=== PATIENT | male | born 1955 | race Caucasian/White ===

== ENCOUNTER 2022-12-29 20:57 | Emergency (ER) | payer MEDICARE, SELFPAY ==
[2022-12-29] VITALS (10 sets, daily range): BP systolic 113–155; BP diastolic 66–89; PULSE 58–72; RESP 10–23; TEMP 36.4; O2SAT 83–98; BMI 47.0
--- NOTE | 2022-12-29 21:03 | ECG_ITS ---
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
[2022-12-29 21:15] LABS: Glucometer 220 mg/dL (74-106)
--- NOTE | 2022-12-29 21:22 | XR_ITS ---
The [address] [address] Patient Name: HUANG QUINTANA MRN: [id number] date: 1955 Sex: M Assigned Patient Location: ER Current Patient Location: ER Accession/Order Number: [id number] Exam Date: 12/29/2022 21:30 Report Date: 12/29/2022 22:56 At the request of: SINDHU MUKHERJEE Procedure: XR chest 1V EXAM: XR CHEST 1V HISTORY: Dizziness. COMPARISON: None. TECHNIQUE: One view was performed. FINDINGS: Cardiac silhouette is near the upper limits of normal in size. The aorta is somewhat tortuous. There is no definite focal consolidation, pleural effusion or pneumothorax. Bones and soft tissues appear unremarkable. IMPRESSION: 1. No acute cardiopulmonary process. 2. Borderline cardiomegaly. Electronically authenticated by: CHRISTIE QURESHI Date: 12/29/2022 22:56
--- NOTE | 2022-12-29 21:23 | CT_ITS ---
The [address] [address] Patient Name: HUANG QUINTANA MRN: [id number] date: 1955 Sex: M Assigned Patient Location: ER Current Patient Location: ER Accession/Order Number: [id number] Exam Date: 12/29/2022 21:30 Report Date: 12/29/2022 22:23 At the request of: SINDHU MUKHERJEE Procedure: CT head/brain wo con INDICATION: 67 years old; Male. Dizziness. TECHNIQUE: CT Head (ax/cor/sag reformats). Ionizing radiation dose reduced via iterative reconstruction/FBP blend and body size kV/mA adjustment. Comparison: None FINDINGS: POSTOPERATIVE CHANGES: None. BRAIN PARENCHYMA: No focal lesions. No mass effect. No midline shift or herniation. No intraparenchymal or extra-axial hemorrhage. Normal barnhart/white differentiation. 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 Enlargement of the ventricles and extra ventricular spaces consistent with underlying atrophy is also noted. SINUSES/MASTOIDS: Thickening and cyst or polyp formation in the left maxillary sinus. Nasal septal deviation to the left with spur formation. Maureen bullosa bilaterally. Mastoid air cells are clear. MSK: No displaced or depressed calvarial fracture is noted. OTHER: No hyperdense intraluminal thrombus is seen. Vascular calcification is noted. IMPRESSION: 1. No acute intracranial abnormality. No hemorrhage or mass effect. 2. Agenesis of the corpus callosum. 3. Atrophy. 4. Vascular calcification. Electronically authenticated by: ESTELLE BLUM Date: 12/29/2022 22:23
--- NOTE | 2022-12-29 21:24 | PC.NURSE ---
patient states prior to arrival he was sitting outside in his garage when he began to feel dizzy and nauseous. states he had been sitting outside for about an hour and then when he tried to get up he felt too weak and like he was going to pass out so he called his nephew for help. nephew states when he got there the pt said he was dizzy and the pt felt cold . patient denies any chest pain at this time. patient states he just feels lightheaded and nauseous.
[2022-12-29 21:28] LABS: Basophils Percent Auto 0.4 % (0.2-2.0); Eosinophils Absolute Auto 0.1 10^3/uL (0.0-0.7); Eosinophils Percent Auto 1.1 % (0.9-7.0); Hematocrit 43.1 % (42.0-54.0); Hemoglobin 14.4 g/dL (14.0-18.0); Immature Granulocytes Abs Auto 0.06 10^3/uL (0.00-0.03); Immature Granulocytes Pct Auto 0.6 % (0.0-0.5); Lymphocytes Absolute Auto 1.9 10^3/uL (1.2-3.8); Lymphocytes Percent Auto 19.2 % (20.5-60.0); Mean Corpuscular HGB Conc 33.4 g/dL (29.9-35.2); Mean Corpuscular Hemoglobin 30.7 pg (25.9-34.0); Mean Corpuscular Volume 91.9 fL (80.0-94.0); Mean Platelet Volume 9.6 fL (9.5-13.5); Monocytes Absolute Auto 0.6 10^3/uL (0.3-0.8); Monocytes Percent Auto 6.3 % (1.7-12.0); Neutrophils Absolute Auto 7.1 10^3/uL (1.4-6.5); Neutrophils Percent Auto 72.4 % (43.0-75.0); Platelet Count 300 10^3/uL (150-450); Red Blood Count 4.69 10^6/uL (4.70-6.10); Red Cell Distribution Width 12.7 % (11.0-15.0); White Blood Count 9.8 10^3/uL (4.0-11.0)
[2022-12-29] MEDS: ONDANSETRON PF 4 MG/2 ML VIAL IV ×2 (21:35→22:34)
[2022-12-29] MEDS: 0.9 % SODIUM CHLORIDE 1,000 ML 999 ML IV (21:35)
[2022-12-29 21:42] LABS: Anion Gap 11.3; Calcium 9.1 mg/dL (8.5-10.1); Carbon Dioxide 25.8 mmol/L (21.0-32.0); Chloride 100 mmol/L (98-107); Estimated GFR (African America >60 (>=60); Estimated GFR (Non-African Ame >60 (>=60); Glucose 210 mg/dL (74-106); Potassium 4.1 mmol/L (3.5-5.1); Sodium 133 mmol/L (136-145)
[2022-12-29 21:43] LABS: Troponin I High Sensitivity <4.0 pg/mL (4.0-76.1)
--- NOTE | 2022-12-29 21:53 | ED_ITS ---
HPI - Dizziness General Chief Complaint: Dizziness Stated Complaint: chest pain Time Seen by Provider: 12/29/22 21:11 Source: patient Mode of arrival: Wheelchair History of Present Illness HPI Narrative: patient suddenly became dizzy and nauseous and vomited. He was brought in by family for evaluation. No preceding illness or injury. He denied any associated headache, visual changes, ringing in the ears, ear pain, sore throat , nasal congestion. He denied any associated palpitations, chest pain or shortness fo breath. He described the sensation as almost like I ws going to pass out . he has atrial fibrillation and takes 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. PMHx also includes DM and CAD. he is accompanied by his sister and his nephew Related Data Home Medications Medication Instructions Recorded Confirmed albuterol sulfate 90 mcg/actuation inhalation 12/29/22 aerosol inhaler (Ventolin HFA) apixaban 5 mg tablet (Eliquis) mg 12/29/22 metformin 500 mg tablet,extended mg PO 12/29/22 release 24 hr metoprolol tartrate 100 mg tablet mg 12/29/22 tolterodine 4 mg capsule,extended mg PO 12/29/22 release 24 hr torsemide 20 mg tablet mg 12/29/22 Previous Rx's Medication Instructions Recorded ondansetron 4 mg disintegrating 4 mg PO .q6hr PRN nausea and 12/30/22 tablet vomiting #20 tabs Allergies Allergy/AdvReac Type Severity Reaction Status Date / Time No Known Drug Allergies Allergy Verified 12/29/22 21:06 Exam Narrative Exam Narrative: Nurses notes and vital signs reviewed and patient is not hypoxic. afebrile General: Well-appearing and in no apparent distress. Skin: Warm, dry, no pallor noted. No rash. Head: Normocephalic, atraumatic. Neck: Supple, non-tender. Eye: Pupils are equal, round and EOMI. No scleral icterus. Ears, Nose, Mouth, and Throat: TM are clear, no nasal mucosal hypertrophy. Oral mucosa is moist, no posterior oropharynx erythema, uvula is mid-line Cardiovascular: Regular Rate and Rhythm without murmur, gallop or rub. Respiratory: No accessory muscle use or respiratory distress. Lungs are clear to auscultation, no wheezing, rales or rhonchi Chest Wall: no tenderness Back: No midline thoracic or lumbar vertebral tenderness. No CVA tenderness Musculoskeletal: normal ROM, no calf or popliteal tenderness, no lower extremity edema/swelling GI: Abdomen is soft, non-distended. Normal bowel sounds. No masses appreciated. No tenderness to palpation. No rebound, guarding, or rigidity noted. Neurological: A&O x4. No cranial nerve dysfunction observed. No truncal ataxia. Moves all extremities. Sensation intact. Psychiatric: Cooperative and interactive. Normal mood and affect. Constitutional Vital Signs, click to edit/add: Last Vital Signs Temp 97.5 F L 12/29/22 21:02 Pulse 67 12/29/22 23:01 Resp 14 12/29/22 23:01 BP 135/77 H 12/29/22 23:32 Pulse Ox 97 12/29/22 23:01 O2 Del Method Room Air 12/29/22 21:02 Course Vital Signs Vital signs: Vital Signs Temperature 97.5 F L 12/29/22 21:02 Pulse Rate 65 12/29/22 21:02 Respiratory Rate 16 12/29/22 21:02 Blood Pressure 155/89 H 12/29/22 21:02 Pulse Oximetry 95 12/29/22 21:02 Oxygen Delivery Method Room Air 12/29/22 21:02 Temperature 97.5 F L 12/29/22 21:02 Pulse Rate 67 12/29/22 23:01 Respiratory Rate 14 12/29/22 23:01 Blood Pressure 135/77 H 12/29/22 23:32 Pulse Oximetry 97 12/29/22 23:01 Oxygen Delivery Method Room Air 12/29/22 21:02 MDM - Dizziness MDM Narrative Medical decision making narrative: Patient was placed on air sampling and monitoring and EKG obtained. Blood drawn and sent for evaluation. he was sent for CT scanning of the brain and chest x-ray was obtained. Patient received normal saline IV fluid bolus and IV Zofran. Orthostatic vitals were negative and the patient was able to stand at the bedside unassisted. Lab values are fairly unremarkable. normal CBC. Sodium slightly decreased at 133. Remainder of electrolytes, kidney function and troponin are normal. glucose elevated above two hundred Head CT and CXR without acute abnormalities. Reports detailed above. Patient's dizziness resolved after NS IVF bolus and IV Zofran. He still had nausea so he was given another 4mg dose of Zofran IV and Phenergan 25mg IV. He was drowsy after receiving the IV Phenergan but his nausea had resolved. Results discussed with the patient and his sister, who is apparently his medical ower of disability attorney. She wanted him admitted but the nephew agreed to take the patient home and stay with him tonight. The patient was able to converse and answer questions at discharge. Nausea had resolved. He was able to stand, pivot and walk without assistance. Lab Data Attestation: I reviewed the patient's lab results. Labs: Lab Results 12/29/22 12/29/22 Range/Units 21:05 21:14 WBC 9.8 (4.0-11.0) 10^3/uL RBC 4.69 L (4.70-6.10) 10^6/uL Hgb 14.4 (14.0-18.0) g/dL Hct 43.1 (42.0-54.0) % MCV 91.9 (80.0-94.0) fL MCH 30.7 (25.9-34.0) pg MCHC 33.4 (29.9-35.2) g/dL RDW 12.7 (11.0-15.0) % Plt Count 300 (150-450) 10^3/uL MPV 9.6 (9.5-13.5) fL Neut % (Auto) 72.4 (43.0-75.0) % Lymph % (Auto) 19.2 L (20.5-60.0) % [place] % (Auto) 6.3 (1.7-12.0) % Eos % (Auto) 1.1 (0.9-7.0) % Baso % (Auto) 0.4 (0.2-2.0) % Neut # (Auto) 7.1 H (1.4-6.5) 10^3/uL Lymph # (Auto) 1.9 (1.2-3.8) 10^3/uL [place] # (Auto) 0.6 (0.3-0.8) 10^3/uL Eos # (Auto) 0.1 (0.0-0.7) 10^3/uL Baso # (Auto) 0.0 (0.0-0.1) 10^3/uL Abs Immat Gran (auto) 0.06 H (0.00-0.03) 10^3/uL Imm/Tot Granulo (auto) 0.6 H (0.0-0.5) % Sodium 133 L (136-145) mmol/L Potassium 4.1 (3.5-5.1) mmol/L Chloride 100 (98-107) mmol/L Carbon Dioxide 25.8 (21.0-32.0) mmol/L Anion Gap 11.3 BUN 9.0 (7.0-18.0) mg/dL Creatinine 1.13 (0.70-1.30) mg/dL Est GFR ( Amer) >60 (>=60) Est GFR (Non-Af Amer) >60 (>=60) BUN/Creatinine Ratio 8.0 Glucose 210 H (74-106) mg/dL Calcium 9.1 (8.5-10.1) mg/dL Troponin I High Sens <4.0 L (4.0-76.1) pg/mL POC Glucose 220 H (74-106) mg/dL Imaging Data CT scan - head: Radiologist's impression: Patient Name: HUANG QUINTANA MRN: [id number] date: 1955 Sex: M Assigned Patient Location: ER Current Patient Location: ER Accession/Order Number: [id number] Exam Date: 12/29/2022 21:30 Report Date: 12/29/2022 22:23 At the request of: SINDHU MUKHERJEE Procedure: CT head/brain wo con INDICATION: 67 years old; Male. Dizziness. TECHNIQUE: CT Head (ax/cor/sag reformats). Ionizing radiation dose reduced via iterative reconstruction/FBP blend and body size kV/mA adjustment. Comparison: None FINDINGS: POSTOPERATIVE CHANGES: None. BRAIN PARENCHYMA: No focal lesions. No mass effect. No midline shift or herniation. No intraparenchymal or extra-axial hemorrhage. Normal barnhart/white differentiation. 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 Enlargement of the ventricles and extra ventricular spaces consistent with underlying atrophy is also noted. SINUSES/MASTOIDS: Thickening and cyst or polyp formation in the left maxillary sinus. Nasal septal deviation to the left with spur formation. Maureen bullosa bilaterally. Mastoid air cells are clear. MSK: No displaced or depressed calvarial fracture is noted. OTHER: No hyperdense intraluminal thrombus is seen. Vascular calcification is noted. IMPRESSION: 1. No acute intracranial abnormality. No hemorrhage or mass effect. 2. Agenesis of the corpus callosum. 3. Atrophy. 4. Vascular calcification. Electronically authenticated by: ESTELLE BLUM Date: 12/29/2022 22:23 Chest x-ray: Radiologist's impression: Patient: HUANG QUINTANA MR#: [id number] : 1955 Acct:[id number] Age/Sex: 67 / M ADM Date: 12/29/22 Loc: ER Attending Dr: Ordering Physician: Sindhu Mukherjee D.O. Date of Service: 12/29/22 Procedure(s): XR chest 1V Accession Number(s): [id number] cc: ~ ?? ? [facility] ?? ? [address] [place] [address] ?? ? [place] [address] ? Patient Name: HUANG QUINTANA ? MRN: [id number]? ? date: 1955? ? Sex: M Assigned Patient Location: ER Current Patient Location: ER Accession/Order Number: [id number] Exam Date: 12/29/2022? 21:30? ? Report Date: 12/29/2022? 22:22 ? At the request of: SINDHU? LONNY? ? Procedure:? XR chest 1V ? Initial impression only. ? IMPRESSION: ? 1. No acute cardiopulmonary process. 2. Borderline cardiomegaly. ? ? Electronically authenticated by: TARIQ QURESHI ? Date: 12/29/2022? 22:22 ECG Data Interpretation: EKG interpretation: Emergency Department physician interpretation. rate controlled atrial fibrillation at 69bpm. incomplete right bundle-branch block. Long QTC interval. no ST segment elevation or depression. Discharge Plan Discharge Chief Complaint: Dizziness Clinical Impression: Dizziness Patient Disposition: Home, Self-Care Time of Disposition Decision: 23:09 Prescriptions / Home Meds: New ondansetron 4 mg tablet,disintegrating 4 mg PO .q6hr PRN (Reason: nausea and vomiting) Qty: 20 0RF No Action torsemide 20 mg tablet metoprolol tartrate 100 mg tablet tolterodine 4 mg capsule,extended release 24hr PO albuterol sulfate [Ventolin HFA] 90 mcg/actuation HFA aerosol inhaler INHALATION metformin 500 mg tablet extended release 24 hr PO Eliquis 5 mg tablet Instructions: Dizziness (ED) Stand Alone Forms: Portal Instructions Referrals: Kaleb Gonzales [Primary Care Provider] - 1 week Discharge Date/Time: 12/29/22 23:53
[2022-12-29] MEDS: PROMETHAZINE HCL 25 MG/ML VIAL IV (22:34)
== END 2022-12-29 23:53 | disposition home or self-care (01) ==
PROVIDERS: Emergency Provider Emergency Medicine; PCP Physician Assistant
DX: R42 Dizziness and giddiness (principal); I48.91 Unspecified atrial fibrillation; E11.9 Type 2 diabetes mellitus without complications; I25.10 Atherosclerotic heart disease of native coronary artery without angina pectoris; Z79.01 Long term (current) use of 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s; Z79.899 Other long term (current) drug therapy; Z79.84 Long term (current) use of oral hypoglycemic drugs
CPT/HCPCS: 36415; 36416; 70450; 71045; 80048; 82948; 84484; 85025; 93005; 96361; 96374; 96375; 96376; 99285

== ENCOUNTER 2024-01-12 12:48 | Emergency (ER) | payer MEDICARE, SELFPAY ==
[2024-01-12] VITALS (34 sets, daily range): BP systolic 113–144; BP diastolic 60–83; PULSE 58–75; TEMP 36.8; O2SAT 95–99; BMI 48.3
--- NOTE | 2024-01-12 12:57 | ECG_ITS ---
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
--- NOTE | 2024-01-12 12:57 | XR_ITS ---
[address] [address] Patient Name: HUANG QUINTANA MRN: [id number] date: 1955 Sex: M Assigned Patient Location: ER Current Patient Location: ER Accession/Order Number: [id number] Exam Date: 01/12/2024 13:19 Report Date: 01/12/2024 13:49 At the request of: MICHAEL SINGLETON Procedure: XR chest 1V EXAM: XR chest 1V HISTORY: Chest pain COMPARISON: 12/29/2022 TECHNIQUE: Single view of the chest FINDINGS: Heart is slightly enlarged with a biventricular contour. Vascularity is unremarkable. Lungs are free of focal infiltrates. EKG leads overlie the chest. XR/XR chest 1V IMPRESSION: 1. Cardiac enlargement. 2. No infiltrates. Electronically authenticated by: SARAI WHITNEY Date: 01/12/2024 13:49
[2024-01-12 13:26] LABS: Basophils Percent Auto 0.5 % (0.2-2.0); Eosinophils Absolute Auto 0.1 10^3/uL (0.0-0.7); Eosinophils Percent Auto 1.1 % (0.9-7.0); Hematocrit 41.8 % (42.0-54.0); Immature Granulocytes Abs Auto 0.02 10^3/uL (0.00-0.03); Immature Granulocytes Pct Auto 0.3 % (0.0-0.5); Lymphocytes Percent Auto 16.1 % (20.5-60.0); Mean Corpuscular HGB Conc 33.5 g/dL (29.9-35.2); Mean Corpuscular Hemoglobin 31.6 pg (25.9-34.0); Mean Corpuscular Volume 94.4 fL (80.0-94.0); Mean Platelet Volume 9.9 fL (9.5-13.5); Monocytes Absolute Auto 0.4 10^3/uL (0.3-0.8); Monocytes Percent Auto 6.3 % (1.7-12.0); Neutrophils Absolute Auto 4.9 10^3/uL (1.4-6.5); Neutrophils Percent Auto 75.7 % (43.0-75.0); Platelet Count 241 10^3/uL (150-450); Red Blood Count 4.43 10^6/uL (4.70-6.10); Red Cell Distribution Width 12.9 % (11.0-15.0); White Blood Count 6.4 10^3/uL (4.0-11.0)
--- NOTE | 2024-01-12 13:39 | PC.NURSE ---
BP checked prior to Nitro, informed ER DR Lombardo of the BP measurement and instructed to hold the nitro and new meds will be ordered. Pt and family updated on this and why.
[2024-01-12 13:41] LABS: INR 1.08; Prothrombin Time 11.4 sec (9.0-11.6)
[2024-01-12 13:43] LABS: Alanine Aminotransferase 26 U/L (16-63); Albumin Level 3.7 g/dL (3.4-5.0); Alkaline Phosphatase 88 U/L (46-116); Aspartate Amino Transferase 21 U/L (15-37); BUN Creatinine Ratio 17.4; Bilirubin Total 0.9 mg/dL (0.2-1.0); Calcium 8.7 mg/dL (8.5-10.1); Carbon Dioxide 25.8 mmol/L (21.0-32.0); Chloride 99 mmol/L (98-107); Estimated GFR (African America >60 (>=60); Estimated GFR (Non-African Ame >60 (>=60); Globulin 3.7 g/dL; Glucose 198 mg/dL (74-106); Potassium 3.8 mmol/L (3.5-5.1); Sodium 132 mmol/L (136-145); Total Protein 7.4 g/dL (6.4-8.2)
[2024-01-12 13:44] LABS: D Dimer 0.31 mg/L FEU (<=0.59)
[2024-01-12 13:45] LABS: Troponin I High Sensitivity 399.6 pg/mL (4.0-76.1)
[2024-01-12] MEDS: FAMOTIDINE/PF 20 MG/2 ML VIAL IV (13:47)
[2024-01-12] MEDS: 0.9 % SODIUM CHLORIDE 1,000 ML 1000 ML IV (14:08)
[2024-01-12] MEDS: NITROGLYCERIN 0.4 MG BOTTLE SL (14:10)
--- NOTE | 2024-01-12 14:11 | PC.NURSE ---
ER DR request the Nitro be given d/t Bp higher at this time, 1 Nitro given
[2024-01-12 14:20] LABS: Partial Thromboplastin Time 29.3 sec (22.3-36.2)
[2024-01-12] MEDS: HEPARIN SODIUM (PORCINE) 5,000 UNIT/ML VIAL 4000 UNIT IV (14:33)
[2024-01-12] MEDS: HEPARIN SODIUM,PORCINE/D5W 25,000 UNIT/500 ML IV.SOLN 20 UNIT IV (14:34)
[2024-01-12] MEDS: MORPHINE SULFATE 2 MG/ML SYRINGE IV (14:54)
--- NOTE | 2024-01-12 15:29 | ED.CHESTPAI1 ---
HPI - Chest Pain General Chief Complaint: Chest Pain Stated Complaint: CHEST PAIN Time Seen by Provider: 01/12/24 12:57 Source: patient Mode of arrival: ambulance Limitations: no limitations History of Present Illness HPI narrative: The patient presenting to us with a 6 out of 10 retrosternal chest pain that started at 11:15 AM which is almost 3 hours before arrival, the patient mentioned that the pain is retrosternal pressure-like not associated with any sweating or shortness of breath or dizziness, he have no history of coronary artery disease he does have history of diabetes as well as A-fib and is taking Eliquis The patient pain started as 8 out of 10 and right now it is 6 out of 10 there was no nausea associated or vomiting The patient received aspirin 324 mg by the EMS before arrival Related Data Home Medications ?Medication ?Instructions ?Recorded ?Confirmed albuterol sulfate 90 mcg/actuation 1 puff inhalation Q6H PRN 12/29/22 01/12/24 aerosol inhaler (Ventolin HFA) shortness of breath or wheezing apixaban 5 mg tablet (Eliquis) 5 mg PO BID 12/29/22 01/12/24 metformin 500 mg tablet,extended 500 mg PO BID 12/29/22 01/12/24 release 24 hr metoprolol tartrate 100 mg tablet 100 mg PO BID 12/29/22 01/12/24 tolterodine 4 mg capsule,extended 4 mg PO Q24H 12/29/22 01/12/24 release 24 hr torsemide 20 mg tablet 10 mg PO DAILY 12/29/22 01/12/24 mometasone-formoterol HFA 100 2 puff inhalation BID 01/12/24 01/12/24 mcg-5 mcg/actuation aerosol inhaler (Dulera) spironolactone 25 mg tablet 25 mg PO DAILY 01/12/24 01/12/24 Allergies Allergy/AdvReac Type Severity Reaction Status Date / Time No Known Drug Allergies Allergy Verified 12/29/22 21:06 Review of Systems ROS Status of ROS 10 or more systems reviewed and unremarkable except as noted in history and below [facility] Medical History (Updated 01/12/24 @ 15:35 by Sarahi Lombardo MD) HTN (hypertension) ?I10 - Essential (primary) hypertension (ICD-10) Diabetes ?E11.9 - Type 2 diabetes mellitus without complications (ICD-10) Afib ?I48.91 - Unspecified atrial fibrillation (ICD-10) Exam Narrative Exam Narrative: Nurses notes and vital signs reviewed and patient is not hypoxic. General: Well-appearing and in no apparent distress. Skin: Warm, dry, no pallor noted. No rash. Head: Normocephalic, atraumatic. Neck: Supple, non-tender. Eye: Pupils are equal, round and EOMI. No scleral icterus. Ears, Nose, Mouth, and Throat: TM are clear, no nasal mucosal hypertrophy. Oral mucosa is moist, no posterior oropharynx erythema, uvula is mid-line Cardiovascular: Regular Rate and Rhythm without murmur, gallop or rub. Respiratory: No accessory muscle use or respiratory distress. Lungs are clear to auscultation, no wheezing, rales or rhonchi Chest Wall: no tenderness Back: No midline thoracic or lumbar vertebral tenderness. No CVA tenderness Musculoskeletal: normal ROM, no calf or popliteal tenderness, no lower extremity edema/swelling GI: Abdomen is soft, non-distended. Normal bowel sounds. No masses appreciated. No tenderness to palpation. No rebound, guarding, or rigidity noted. Neurological: A&O x4. No cranial nerve dysfunction observed. No truncal ataxia. Moves all extremities. Sensation intact. Psychiatric: Cooperative and interactive. Normal mood and affect. Constitutional Vital Signs, click to edit/add: Last Vital Signs Temp 98.2 F 01/12/24 12:53 Pulse 69 01/12/24 14:40 Resp 14 01/12/24 14:40 BP 124/76 01/12/24 14:38 Pulse Ox 97 01/12/24 14:38 O2 Del Method Room Air 01/12/24 12:53 Course Vital Signs Vital signs: Vital Signs Pulse Rate 70 01/12/24 12:52 Respiratory Rate 13 01/12/24 12:52 Pulse Oximetry 99 01/12/24 12:52 Temperature 98.2 F 01/12/24 12:53 Pulse Rate 69 01/12/24 14:40 Respiratory Rate 14 01/12/24 14:40 Blood Pressure 124/76 01/12/24 14:38 Pulse Oximetry 97 01/12/24 14:38 Oxygen Delivery Method Room Air 01/12/24 12:53 MDM - Chest Pain MDM Narrative Medical decision making narrative: EKG showing A-fib with a heart rate of 70 and T wave inversion is seen on lead III and aVF in addition to V1 V2 and V3 which is new compared to the patient old EKG The patient first troponin was 399 He was provided with Pepcid initially as well as morphine for the pain and also initially was supposed to take nitro but his blood pressure was 110 systolic after giving him IV fluids the patient was given 1 nitro Patient case was discussed with and he recommended that the patient be transferred to [facility] in addition to starting the patient heparin Patient Eliquis was stopped and he was started on heparin Chemistry otherwise showed no acute pathology and the chest x-ray shows no significant pathology Right now the patient is pain-free awaiting to be transferred Lab Data Labs: Lab Results 01/12/24 Range/Units 13:14 WBC 6.4 (4.0-11.0) 10^3/uL RBC 4.43 L (4.70-6.10) 10^6/uL Hgb 14.0 (14.0-18.0) g/dL Hct 41.8 L (42.0-54.0) % MCV 94.4 H (80.0-94.0) fL MCH 31.6 (25.9-34.0) pg MCHC 33.5 (29.9-35.2) g/dL RDW 12.9 (11.0-15.0) % Plt Count 241 (150-450) 10^3/uL MPV 9.9 (9.5-13.5) fL Neut % (Auto) 75.7 H (43.0-75.0) % Lymph % (Auto) 16.1 L (20.5-60.0) % [place] % (Auto) 6.3 (1.7-12.0) % Eos % (Auto) 1.1 (0.9-7.0) % Baso % (Auto) 0.5 (0.2-2.0) % Neut # (Auto) 4.9 (1.4-6.5) 10^3/uL Lymph # (Auto) 1.0 L (1.2-3.8) 10^3/uL [place] # (Auto) 0.4 (0.3-0.8) 10^3/uL Eos # (Auto) 0.1 (0.0-0.7) 10^3/uL Baso # (Auto) 0.0 (0.0-0.1) 10^3/uL Abs Immat Gran (auto) 0.02 (0.00-0.03) 10^3/uL Imm/Tot Granulo (auto) 0.3 (0.0-0.5) % PT 11.4 (9.0-11.6) sec INR 1.08 APTT 29.3 (22.3-36.2) sec D-Dimer 0.31 (<=0.59) mg/L FEU Sodium 132 L (136-145) mmol/L Potassium 3.8 (3.5-5.1) mmol/L Chloride 99 (98-107) mmol/L Carbon Dioxide 25.8 (21.0-32.0) mmol/L Anion Gap 11.0 BUN 16.0 (7.0-18.0) mg/dL Creatinine 0.92 (0.70-1.30) mg/dL Est GFR ( Amer) >60 (>=60) Est GFR (Non-Af Amer) >60 (>=60) BUN/Creatinine Ratio 17.4 Glucose 198 H (74-106) mg/dL Calcium 8.7 (8.5-10.1) mg/dL Total Bilirubin 0.9 (0.2-1.0) mg/dL AST 21 (15-37) U/L ALT 26 (16-63) U/L Alkaline Phosphatase 88 (46-116) U/L Troponin I High Sens 399.6 H* (4.0-76.1) pg/mL Total Protein 7.4 (6.4-8.2) g/dL Albumin 3.7 (3.4-5.0) g/dL Globulin 3.7 g/dL Albumin/Globulin Ratio 1.0 Discharge Plan Discharge Chief Complaint: Chest Pain Clinical Impression: Acute non-ST elevation myocardial infarction (NSTEMI) Patient Disposition: [facility] Time of Disposition Decision: 15:34 Discharge location: [facility]
== END 2024-01-12 16:34 | disposition short-term general hospital (02) ==
PROVIDERS: Emergency Provider Emergency Medicine; PCP Physician Assistant
DX: I21.4 Non-ST elevation (NSTEMI) myocardial infarction (principal); E11.9 Type 2 diabetes mellitus without complications; I48.91 Unspecified atrial fibrillation; Z79.01 Long term (current) use of 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s; Z79.84 Long term (current) use of oral hypoglycemic drugs
CPT/HCPCS: 36415; 71045; 80053; 84484; 85025; 85378; 85610; 85730; 93005; 96365; 96366; 96375; 96376; 99285; J1644; J2270

== ENCOUNTER 2024-01-20 14:24 | Emergency (ER) | payer OTHER, SELFPAY ==
[2024-01-20 14:39] VITALS: BP 102/68; PULSE 78; TEMP 36.7; O2SAT 98; BMI 44.9
== END 2024-01-20 16:06 | disposition left against medical advice (07) ==
PROVIDERS: Emergency Provider Emergency Medicine Emergency Medical Services; PCP Nurse Practitioner
DX: Z53.21 Procedure and treatment not carried out due to patient leaving prior to being seen by health care provider (principal)

== ENCOUNTER 2025-04-05 16:25 | Emergency (ER) | payer MEDICARE, SELFPAY ==
--- OUTSIDE RECORDS SUMMARY | 2023-11-22 05:45 | XMS_ITS ---
Author Organization [facility] vices Address [address] [place], [place] [id number] Care Team Providers Care Software Project Engineer Name Role Phone Klaeb Marquis Unavailable [phone] REASON FOR VISIT Dm/AFIB Social History Sex Assigned At : Social History Observation Description Sex Assigned At Male Encounters Encounter Location Date Provider Diagnosis [place] [address] [place] [address] 11/22/2023 Kaleb Marquis Plan Of Treatment No Information Progress Notes * Butch QUINTANA FDOB: (69 yo M)Acc No.[id number]:11/22/2023 Medical Note Patient: Butch HARRISON Provider: ОЛЬГА Salmon :1955 A ge:68 Y S ex:Male Date:11/22/2023 Address:[address] [place], [place] [address] Subjective: * Chief Complaints: * 1 . Dm/AFIB. * Medical History: Objective: * Vitals: Assessment: Plan: * Treatment: * Billing Information: * Visit Code: * Procedure Codes: * Electronic signature of ОЛЬГА Mendoza on 04/05/2025 at 05:10 PM EDT Sign off status: Pending * Provider: ОЛЬГА Salmon Date: 0 11/22/2023 Generated for Printi ng/Faxing/eTransmitting on: 1 05:10 PM EDT
--- OUTSIDE RECORDS SUMMARY | 2024-02-10 06:45 | XMS_ITS ---
Author Organization [facility] vices Address [address] [place], [place] [address] Care Team Providers Care Care Advocate Name Role Phone Kaleb Marquis Unavailable [phone] Lorraine Yip Unavailable [phone] REASON FOR VISIT DM/COPD Social History Sex Assigned At : Social History Observation Description Sex Assigned At Male Encounters Encounter Location Date Provider Diagnosis [place] [address] [place] [address] 02/10/2024 Lorraine Yip Plan Of Treatment No Information Progress Notes * Butch QUINTANA FDOB: (69 yo M)Acc No.[id number]:02/10/2024 Medical Note Patient: Butch HARRISON Provider: Nyla Yip :1955 A ge:68 Y S ex:Male Date:02/10/2024 Address:[address] [place], [place] [id number] Subjective: * Chief Complaints: * 1 . DM/COPD. * Medical History: Objective: * Vitals: Assessment: Plan: * Treatment: * Billing Information: * Visit Code: * Procedure Codes: * Electronic signature of MARISOL Putnam on 04/05/2025 at 05:11 PM EDT Sign off status: Pending * Provider: Nyla Yip Date: 0 02/10/2024 Generated for Iveth alcaraz/Amanda/eTprashanthsmitting on: 1 05:11 PM EDT
[2025-04-05 16:31] VITALS: BP 118/81; PULSE 83; TEMP 35.9; O2SAT 95; BMI 45.6
--- NOTE | 2025-04-05 16:54 | XR_ITS ---
The [address] [address] Patient Name: HUANG QUINTANA MRN: [id number] date: 1955 Sex: M Assigned Patient Location: ER Current Patient Location: ED.MAIN Accession/Order Number: [id number] Exam Date: 04/05/2025 17:03 Report Date: 04/05/2025 17:20 At the request of: CELSO ROLON Procedure: XR hand RT min 3V XR hand RT min 3V 04/05/2025 5:10 PM SIGNS AND SYMPTOMS: ^Pain, Fall PROTOCOL: 3 views of the right hand COMPARISON: None FINDINGS: There is narrowing of the interphalangeal joints. There is narrowing of the first metacarpophalangeal joint. There is no evidence of fracture or dislocation. There is diffuse soft tissue swelling. XR/XR hand RT min 3V IMPRESSION: No fracture or dislocation. Degenerative changes are noted in the right hand as above with diffuse soft tissue swelling. Impression dictated by: Chad Winter M.D. 04/05/2025 5:20 PM Dictation Location: [place] [address] Electronically authenticated by: [id number] Y Date: 04/05/2025 17:20
--- NOTE | 2025-04-05 16:54 | XR_ITS ---
The [address] [address] Patient Name: HUANG QUINTANA MRN: [id number] date: 1955 Sex: M Assigned Patient Location: ER Current Patient Location: ED.MAIN Accession/Order Number: [id number] Exam Date: 04/05/2025 17:03 Report Date: 04/05/2025 17:19 At the request of: CELSO ROLON Procedure: XR forearm LT 2V XR forearm LT 2V 04/05/2025 5:10 PM SIGNS AND SYMPTOMS: ^Pain, Fall, hematoma PROTOCOL: Frontal and lateral radiographs of the left forearm COMPARISON: None FINDINGS: There is diffuse soft tissue swelling this is greatest along the dorsal forearm.. There is no evidence of acute displaced fracture. The radiocarpal joint and carpal rows are preserved. Degenerative changes are noted along the radiocapitellar joint space. XR/XR forearm LT 2V IMPRESSION: No fracture. Diffuse soft tissue swelling is noted, greatest along the dorsum of the left forearm. Degenerative changes are noted in the left elbow. Impression dictated by: Chad Winter M.D. 04/05/2025 5:19 PM Dictation Location: [place] [address] Electronically authenticated by: [id number] Y Date: 04/05/2025 17:19
--- NOTE | 2025-04-05 17:08 | ED.GENADUL1 ---
HPI HPI - General Adult General Chief complaint: Fall Stated complaint: FALL Time Seen by Provider: 04/05/25 16:46 Source: patient Mode of arrival: ambulance Limitations: no limitations History of Present Illness HPI narrative: Patient is a 69-year-old male with a PMH of A-fib on Eliquis, HTN, and diabetes that presents to the emergency department via EMS after mechanical fall onto his left forearm. He states he was weed whacking around his house when he tripped over the weeds and fell onto his left arm. He denies hitting his head. He is GCS 15 on arrival and complains of left forearm pain and swelling, and right hand abrasions and pain. He denies any chest pain, abdominal pain, leg pain or back pain. Related Data Home Medications ?Medication ?Instructions ?Recorded ?Confirmed albuterol sulfate 90 mcg/actuation 1 puff inhalation Q6H PRN 12/29/22 04/05/25 aerosol inhaler (Ventolin HFA) shortness of breath or wheezing apixaban 5 mg tablet (Eliquis) 5 mg PO BID 12/29/22 04/05/25 metformin 500 mg tablet,extended 500 mg PO BID 12/29/22 04/05/25 release 24 hr metoprolol tartrate 100 mg tablet 100 mg PO BID 12/29/22 04/05/25 tolterodine 4 mg capsule,extended 4 mg PO Q24H 12/29/22 04/05/25 release 24 hr torsemide 20 mg tablet 10 mg PO DAILY 12/29/22 04/05/25 mometasone-formoterol HFA 100 2 puff inhalation BID 01/12/24 04/05/25 mcg-5 mcg/actuation aerosol inhaler (Dulera) spironolactone 25 mg tablet 25 mg PO DAILY 01/12/24 04/05/25 Allergies Allergy/AdvReac Type Severity Reaction Status Date / Time No Known Drug Allergies Allergy Verified 04/05/25 16:31 Opioid HPI Opioid Management Most Recent Opioid Data: Last Pain Scale 8 Today, 17:11 Last AUG Pain Assessment Today, 17:11 Review of Systems ROS Status of ROS 10 or more systems reviewed and unremarkable except as noted in history and below [facility] Medical History (Updated 04/05/25 @ 18:54 by ОЛЬГА [place]) HTN (hypertension) ?I10 - Essential (primary) hypertension (ICD-10) Diabetes ?E11.9 - Type 2 diabetes mellitus without complications (ICD-10) Afib ?I48.91 - Unspecified atrial fibrillation (ICD-10) Social History Little interest or pleasure in doing things: not at all Feeling down, depressed, or hopeless: not at all Exam Narrative Exam Narrative: General: No distress, age-appropriate Skin: Warm, dry, no pallor. No rash. Head: Normocephalic, atraumatic. Neck: Supple, non-tender midline. Eye: Pupils are equal, round and EOMI. No scleral icterus. Ears, Nose, Mouth, and Throat: Airway patent, uvula midline. Cardiovascular: Regular Rate and Rhythm without murmur, gallop or rub. Respiratory: No accessory muscle use or respiratory distress. Lungs are clear to auscultation, no wheezing, rales or rhonchi Chest Wall: no tenderness, no ecchymosis Back: No midline thoracic or lumbar vertebral tenderness. No signs of trauma. No ecchymosis. Musculoskeletal: Full ROM of all extremities, no calf or popliteal tenderness. Left forearm hematoma, skin is compressible, 2+ radial pulse palpated. Less than 2-second capillary refill to all fingers and thumb. Patient able to make a full fist. Sensation is intact distally with light touch. GI: Abdomen is soft, non-distended, non tender to palpation. No masses appreciated. No rebound, guarding, or rigidity noted. No ecchymosis. Neurological: A&O x4. No cranial nerve dysfunction observed. No truncal ataxia. Moves all extremities. Sensation intact. Psychiatric: Cooperative and interactive. Normal mood and affect. Constitutional Vital Signs, click to edit/add: Last Vital Signs Temp 96.6 F L 04/05/25 16:31 Pulse 52 L 04/05/25 17:45 Resp 16 04/05/25 17:45 BP 118/72 04/05/25 17:45 Pulse Ox 96 04/05/25 17:45 O2 Del Method Room Air 04/05/25 16:31 Documenting provider has reviewed patient's vital signs: yes Course Vital Signs Vital signs: Vital Signs Temperature 96.6 F L 04/05/25 16:31 Pulse Rate 83 04/05/25 16:31 Respiratory Rate 16 04/05/25 16:31 Blood Pressure 118/81 04/05/25 16:31 Pulse Oximetry 95 04/05/25 16:31 Oxygen Delivery Method Room Air 04/05/25 16:31 Temperature 96.6 F L 04/05/25 16:31 Pulse Rate 52 L 04/05/25 17:45 Respiratory Rate 16 04/05/25 17:45 Blood Pressure 118/72 04/05/25 17:45 Pulse Oximetry 96 04/05/25 17:45 Oxygen Delivery Method Room Air 04/05/25 16:31 Medical Decision Making MDM Narrative Medical decision making narrative: This is a 69-year-old male that presented to the emergency department via EMS after mechanical fall while weed whacking. He tripped over the weeds and fell onto his left forearm and once unable to get up. He does wear life alert. He is on Eliquis for history of A-fib. On arrival complaints of left forearm pain and swelling and left hand pain and abrasions. He denied hitting his head. On arrival patient is in no distress, GCS 15, vitals are hemodynamically stable. There is a large hematoma to the dorsal left forearm, this is compressible. No skin breakdown or wounds over the hematoma. 2+ radial pulse palpated. Brisk capillary refill to all fingers and thumb. Patient able to make a full fist. He denies any numbness/tingling to his left hand. There are abrasions to the thenar aspect of the right hand. Patient reports pain in both these areas. He denies pain in his chest, abdomen, legs, neck or back. XR L Forearm and R Hand ordered. IV in placed from EMS. 0.5mg Dilaudid ordered for pain. Tetanus not up to date. Boostrix ordered. X-rays both negative for fracture or dislocation. Degenerative changes and soft tissue swelling noted to both. Patient's blood pressure did drop to 74/59 after Dilaudid was administered. Patient was still mentating appropriately, GCS 15. 500 cc bolus normal saline ordered. RN did have to place a bigger IV. Patient placed in Trendelenburg. Once no IV placed and fluids administered patient's blood pressure returned to 118/72. I did discuss patient's x-ray results with him and we did place an Ramesh wrap on his left forearm. We discussed return precautions for his left forearm hematoma to include numbness/tingling to his left hand, increasing size and hematoma, color change to his hand, ect. I also provided patient education to keep a close eye on any wounds that may appear over the hematoma as he is a diabetic. I told him I want him to follow-up with orthopedics as well as his primary care provider. Patient voiced understanding. Patient was observed in the emergency department for almost 3 hours. The only change in his vital signs was after the administration of Dilaudid, which improved with fluids. Patient's mentation remained stable. RN also got him up and he did ambulate without issue or any dizziness, lightheadedness, unstable gait, nausea, or vomiting. He was able to bear weight through his left forearm and right hand. Patient was discharged to home with strict return precautions and close follow-up with his PCP and orthopedics. Differential Diagnosis Differential Diagnosis: Forearm hematoma, forearm fracture, hand fracture Imaging Data X-ray left forearm and right hand: Attestation: I have reviewed the pertinent imaging results. Radiologist's impression: ITS Impressions Forearm X-Ray 04/05/25 16:54 IMPRESSION: No fracture. Diffuse soft tissue swelling is noted, greatest along the dorsum of the left forearm. Degenerative changes are noted in the left elbow. Impression dictated by: Chad Winter M.D. 04/05/2025 5:19 PM Dictation Location: [employer] Electronically authenticated by: [id number] Y Date: 04/05/2025 17:19 Hand X-Ray 04/05/25 16:54 IMPRESSION: No fracture or dislocation. Degenerative changes are noted in the right hand as above with diffuse soft tissue swelling. Impression dictated by: Chad Winter M.D. 04/05/2025 5:20 PM [facility]ictation [facility] Electronically authenticated by: [id number] Y Date: 04/05/2025 17:20 Discharge Plan Discharge Chief Complaint: Fall Clinical Impression: Hematoma of forearm, Abrasion hand, Fall Patient Disposition: Home, Self-Care Time of Disposition Decision: 18:53 Condition: Good Mode of Transportation: Private Vehicle Prescriptions / Home Meds: No Action torsemide 20 mg tablet 10 mg PO DAILY metoprolol tartrate 100 mg tablet 100 mg PO BID tolterodine 4 mg capsule,extended release 24hr 4 mg PO Q24H albuterol sulfate [Ventolin HFA] 90 mcg/actuation HFA aerosol inhaler 1 puff INHALATION Q6H PRN (Reason: shortness of breath or wheezing) metformin 500 mg tablet extended release 24 hr 500 mg PO BID Eliquis 5 mg tablet 5 mg PO BID Dulera 100-5 mcg/actuation HFA aerosol inhaler 2 puff INHALATION BID spironolactone 25 mg tablet 25 mg PO DAILY Print Language: Azeri Instructions: Hematoma (ED) Additional Instructions: Forearm Hematoma Care: Apply ice to the area for 20 minutes every 2?3 hours for the first 48 hours. Elevate the arm when possible to reduce swelling. Avoid heavy lifting or strenuous activity with the affected arm until pain and swelling improve. Monitor for any increase in size, tightness, or discoloration of the forearm. Return to ED / Call Your Doctor If You Experience: Increasing pain or swelling in the left forearm Numbness, tingling, or weakness in the arm or hand Forearm becoming tense, shiny, or very firm to the touch Signs of bleeding (e.g., new large bruises, nosebleeds, blood in urine or stool) Signs of infection (fever, chills, redness or pus at wound sites) Dizziness, fainting, or new confusion Any new falls or trauma Chest pain, shortness of breath, or palpitations Referrals: INA HARPER [Primary Care Provider, [facility]] - 1 week Arturo Pichardo DO [Physician, Orthopedics] - 1 week
--- OUTSIDE RECORDS SUMMARY | 2025-04-05 17:10 | XMS_ITS | Encounter Summary ---
Author Organization [facility] Address [address] [place] [address] Care Team Providers Care Staining Machine Operator Name Role Phone Angus Lopez MD Primary Care Provider [phone] Angus Lopez MD Unavailable [phone] Encounter Details Date Type Department Care Team (Late Contact Info) Description 12/06/2023 Abstract [facility] [address] [place] [address] Hollie Christianson Social History Tobacco Use Types Packs/Day Years Used Date Smoking Tobacco: Never Smokeless Tobacco: Never Alcohol Use Standard Drinks/Week Comments Defer 0 (1 standard drink = 0.6 oz pur e alcohol) Sex and Gender Information Value Date Recorded Sex Assigned at Not on file Legal Sex Male 6:47 PM EDT Gender Identity Not on file Sexual Orientation Not on file documented as of this encounter Plan of Treatment Upcoming Encounters Date Type Department Care Team (Late Contact Info) Description 04/08/2025 11:30 AM EDT Office Visit [facility] [address] [facility] [address] [place] [id number] Jose Farooq, DPM [address] [facility] [address] [place], [place] [id number] documented as of this encounter Visit Diagnoses Not on filedocumented in this encounter Care Teams Staining Machine Operator Relationship Specialty Start Date End Date Angus Lopez MD [address] [place] [address] PCP - General Family Medicine 10/03/23 Angus Lopez MD [address] [place] [address] PCP - Devoted 09/23/23 06/23/24 documented as of this encounter
--- OUTSIDE RECORDS SUMMARY | 2025-04-05 17:10 | XMS_ITS | Clinical Summary ---
Author Organization [facility] Address [id number] [address] [place] [address] Care Team Providers Care Parcel Post Clerk Name Role Phone Unavailable Primary Care Provider Unavailabl e Social History Tobacco Use Types Packs/Day Years Used Date Smoking Tobacco: Never Assessed Childcare Answer Date Recorded Childcare Unknown 12/03/2018 Employment Answer Date Recorded Employment Unknown 12/03/2018 Sex and Gender Information Value Date Recorded Sex Assigned at Not on file Legal Sex Male 12:08 PM EDT Gender Identity Not on file Sexual Orientation Not on file Plan of Treatment Health Maintenance Due Date Last Done Comments Depression Screening 1967 Tobacco Screening 1967 Adult BMI Screening 1973 DTaP,Tdap and Td Vaccines (1 - Tdap) 1974 Zoster (Shingles) Vaccine (1 of 2) 2005 Fall Risk Screening 2020 COVID-19 Vaccine (5 - 2024-2 6 season) 2025 03/24/2021, 09/09/2020, 08/19/2020, Additional history exists Influenza Vaccine 02/22/2025 Medical Devices Not on file Insurance [employer]
--- OUTSIDE RECORDS SUMMARY | 2025-04-05 17:10 | XMS_ITS | Encounter Summary ---
Author Organization [facility] Address [address] [place] [address] Care Team Providers Care Computer Engineer Name Role Phone Angus Lopez MD Primary Care Provider [phone] Angus Lopez MD Unavailable [phone] Encounter Details Date Type Department Care Team ([facility] Contact Info) Description 02/12/2024 Abstract [facility] [address] [place] [id number] Emre Whittington DPM [facility] [address] [place] [address] Social History Tobacco Use Types Packs/Day Years [...] EDT Office Visit [facility] [address] [facility] [address] [place] [address] Jose Farooq DPM [address] [facility] [address] [place] [address] documented as of this encounter Visit Diagnoses Not on filedocumented in this encounter Care Teams Computer Engineer Relationship Specialty Start Date End Date Angus Lopez MD [address] [place] [address] PCP - General Family Medicine 10/03/23 Angus Lopez MD [address] [place] [address] PCP - Devoted 09/23/23 06/23/24 documented as of this encounter
--- OUTSIDE RECORDS SUMMARY | 2025-04-05 17:10 | XMS_ITS | Encounter Summary ---
Author Organization [facility] Address [address] [place] [address] Care Team Providers Care Drafting Clerk Name Role Phone Angus Lopez MD Primary Care Provider [phone]- [phone] Angus Lopez MD Unavailable [phone] Encounter Details Date Type Department Care Team (Late Contact Info) Description 04/07/2024 Orders Only [facility]3] [address] [place] [address] Beka Herrmann [place] Social History Tobacco Use Types Packs/Day Years [...] 04/08/2025 11:30 AM EDT Office Visit [facility] [address] [facility] [address] [place] [address] Jose Farooq, RITA [address] [facility] [address] [place] [address] documented as of this encounter Procedures Procedure Name Priority Date/Time Associated Diagnosis Comments MRI BRAIN W & WO CONT Routine 04/07/2024 1:06 PM EDT documented in this encounter Results * MRI BRAIN W & WO CONT (04/07/2024 1:06 PM EDT) Anatomical Region Laterality Modality Radiographic Nohemy ging us Angus Padgett DO IMG XR PROCEDURES Final R esult documented in this encounter Visit Diagnoses Not on filedocumented in this encounter Care Teams Drafting Clerk Relationship Specialty Start Date End Date Angus Lopez MD [address] [place] [address] PCP - General Family Medicine 10/03/23 Angus Lopez MD [address] [place] [address] PCP - Devoted 09/23/23 06/23/24 documented as of this encounter
[2025-04-05] MEDS: DIPHTH,PERTUSS(ACELL),TET VAC 0.5 ML SYRINGE IM (17:11)
[2025-04-05] MEDS: HYDROMORPHONE HCL 0.5 MG/0.5 ML SYRINGE IV (17:11)
--- OUTSIDE RECORDS SUMMARY | 2025-04-05 17:11 | XMS_ITS | Clinical Summary ---
Author Organization [facility] Address [address] [place] [address] Phone Care Team Providers Care Grain Manager Name Role Phone Satish Pratt MD Primary Care Provider [phone] Allergies No known active allergies Medications albuterol (Ventolin HFA) 90 mcg/actuation inhaler Inhale. Active ascorbic acid (Vitamin C) 1,000 mg tablet Take 1 tablet (1,000 mg) by mouth once daily. Active fluticasone propion-salmeteroL (Advair HFA) 115-21 mcg/actuation inhaler Inhale 2 puffs 2 times a day. Active metFORMIN (Glucophage) 500 mg tablet Take by mouth every 12 hours. Active magnesium oxide 500 mg magnesium tablet Take 1 tablet (500 mg) by mouth once daily. Active nitroglycerin (Nitrostat) 0.[address] 1 tablet (0.4 mg) under the tongue every 5 minutes if needed for chest pain. Active vit C/E/Zn/coppr/lutein /zeaxan (PRESERVISION AREDS-2 ORAL) Take by mouth. Active mirabegron (Myrbetriq) 50 mg tablet extended release 24 hr 24 hr tablet 1 tablet (50 mg) once daily. 5 Active cyanocobalamin (Vitamin B-12) 1,000 mcg tablet Take 1 tablet (1,000 mcg) by mouth once daily. Active atorvastatin (Lipitor) 80 mg tabletIndications:M ixed hyperlipidemia Take 1 tablet (80 mg) by mouth once daily at bedtime. 90 tablet 3 5 10/15/19 26 Active bumetanide (Bumex) 1 mg tabletIndications:L ower extremity edema Take 1 tablet (1 mg) by mouth once daily. 90 tablet 3 5 10/15/19 26 Active dapagliflozin propanediol (Farxiga) 10 mg tabletIndications:I schemic cardiomyopathy Take 1 tablet (10 mg) by mouth once daily. 90 tablet 3 5 10/15/19 26 Active Eliquis 5 mg tabletIndications:P ermanent atrial fibrillation (Multi),half-way current use of 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 therapy Take 1 tablet (5 mg) by mouth 2 times a day. 180 tablet 3 5 10/15/19 26 Active metoprolol succinate XL (Toprol-XL) 25 mg 24 hr tabletIndications:E ssential hypertension Take 1 tablet (25 mg) by mouth once daily in the morning. Take before meals. 90 tablet 3 5 10/15/19 26 Active potassium chloride CR 10 mEq ER tabletIndications:I schemic cardiomyopathy,Esse ntial hypertension Take 1 tablet (10 mEq) by mouth once daily. Do not crush, chew, or split. 90 tablet 3 5 10/15/19 26 Active spironolactone (Aldactone) 25 mg tabletIndications:E ssential (primary) hypertension Take 1 tablet (25 mg) by mouth once daily. 90 tablet 3 5 10/15/19 26 Active valsartan (Diovan) 40 mg tabletIndications:E ssential hypertension Take 1 tablet (40 mg) by mouth once daily. 90 tablet 3 5 10/15/19 26 Active clopidogrel (Plavix) 75 mg tabletIndications:C oronary artery disease of [place] artery of [place] heart with stable angina pectoris TAKE 1 TABLET BY MOUTH DAILY 180 tablet 3 5 Active Active Problems Problem Noted Date Diagnosed Date Never smoked tobacco 03/10/2024 Two-vessel coronary artery disease 01/22/2024 Assessment & Plan (01/23/2024 8:48 AM EDT): January 13, 2024 ACS admit at [facility] PCI/Synergy Cath report documents: Large OM1 80-90% with plans to intervene if continued symptoms RCA normal LVEF 45% Ischemic cardiomyopathy 01/22/2024 Assessment & Plan (01/23/2024 8:49 AM EDT): ICM HF borderline EF 45% December 2023 cardiac cath Mixed hyperlipidemia 01/22/2024 Assessment & Plan (01/23/2024 8:49 AM EDT): Tolerating addition high intensity statin Shortness of breath 12/24/2023 Assessment & Plan (01/23/2024 8:51 AM EDT): Following recent intervention he has noted resolution of chest pain and some slight improvement in shortness of breath. He continues to report having to stop twice when he is walking out to the mailbox through the garage due to shortness of breath. Assessment & Plan (12/24/2023 9:08 AM EDT): Seems to be worsening over last couple months No benefit from inhaler half-way current use of 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 therapy 0 09/23/2023 Assessment & Plan (01/23/2024 8:50 AM EDT): CHADS VASc 5 anticoagulated full dose Eliquis age 68, weight 283 Denies bleeding diatheses Assessment & Plan (12/24/2023 10:31 AM EDT): CHADS VASc 3 chronically anticoagulated full dose Eliquis age 68, weight 141 kg Denies bleeding diatheses Essential hypertension 09/23/2023 Assessment & Plan (01/23/2024 8:47 AM EDT): optimal in office Assessment & Plan (12/24/2023 10:30 AM EDT): Optimal in office BMI 40.0-44.9, adult (Multi) 09/23/2023 Assessment & Plan (01/23/2024 8:50 AM EDT): Weight is down 25 pounds from last office visit Assessment & Plan (12/24/2023 10:31 AM EDT): Weight is up 11 pounds, no overt volume overload Asthma (HHS-HCC) 09/05/2023 Diabetes mellitus (Multi) 09/05/2023 Lower extremity edema 09/05/2023 Assessment & Plan (12/24/2023 9:07 AM EDT): Chronic venous stasis changes Permanent atrial fibrillation (Multi) 09/05/2023 Assessment & Plan (01/23/2024 8:47 AM EDT): Chronic atrial fib with treatment strategy rate control Assessment & Plan (12/24/2023 10:30 AM EDT): Chronic atrial fibrillation with treatment strategy rate control on metoprolol Resolved Problems Problem Noted Date Diagnosed Date Resolved Date Benign essential HTN 09/05/2023 024 Immunizations Immunization Administration Dates Next Due Pfizer Purple Cap SARS-CoV-2 03/24/2021,09/10/19 21,08/19/2020 Family History Medical History Relation Name Comments Brain cancer Brother Cancer Father DIABETIC Mother Heart failure Mother Hypertension Mother Relation Name Status Comments Brother Father Mother Social History Tobacco Use Types Packs/Day Years Used Date Smoking Tobacco: Never Smokeless Tobacco: Never Tobacco Cessation:Counseling Given: Not Answered Alcohol Use Standard Drinks/Week Comments Never 0 (1 standard drink = 0.6 oz pur e alcohol) Sex and Gender Information Value Date Recorded Sex Assigned at Not on file Legal Sex Male 9:10 PM EST Gender Identity Not on file Sexual Orientation Not on file Last Filed Vital Signs Vital Sign Reading Time Taken Comments Blood Pressure 114/66 09/22/2024 9:49 AM EDT Pulse 79 09/22/2024 9:49 AM EDT Temperature - - Respiratory Rate - - Oxygen Saturation - - Inhaled Oxygen Concentration - - Weight 127 kg (279 lb) 09/22/2024 9:49 AM EDT Height 172.7 cm (5' 8 ) 09/22/2024 9:49 AM EDT Body Mass Index 42.42 09/22/2024 9:49 AM EDT Plan of Treatment Upcoming Encounters Date Type Department Care Team (Late st Contact Info) Description 04/08/2025 10:50 AM EDT Office Visit [place] [address] [place] [address] Stacey Varela MD [address] [facility] [address], [address] [place] [address] Health Maintenance Due Date Last Done Comments CT Colonography 1955 Creatinine Level 1955 Diabetes: Hemoglobin A1C 1955 Diabetes: Urine Protein Screening 1955 FIT-DNA (Cologuard) 1955 FIT 1955 Potassium Level 1955 Sigmoidoscopy 1955 MMR Vaccines (1 of 1 - Standard series) 1956 Hepatitis C Screening 1973 Pneumococcal Vaccine (1 of 2 - PCV) 1974 DTaP/Tdap/Td Vaccines (1 - Tdap) 1977 PSA Prostate Cancer Screening 2005 Zoster Vaccines (1 of 2) 2005 RSV High Risk: (Elderly (60+ ) or Population) (1 - Risk 60-74 years 1-dose series) 2015 Medicare Annual Wellness Vis it (AWV) 03/05/2018 03/04/2017 Echocardiogram 09/02/2020 09/03/2019, 09/03/2019 Diabetes: Retinopathy Screening 11/09/2024 11/09/2022 Lipid Panel 01/12/2025 01/13/2024 COVID-19 Vaccine (4 - 2024-2 6 season) 2025 03/24/2021, 09/09/2020, 08/19/2020 Influenza Vaccine (#1) 2025 Colonoscopy 05/13/2029 05/13/2019 Colorectal Cancer Screening 05/13/2029 Welcome to Medicare Visit Discontinued 03/04/2017 HIB Vaccines Aged Out No longer eligi ble based on patient's age to complete this topic HPV Vaccines Aged Out No longer eligi ble based on patient's age to complete this topic Hepatitis A Vaccines Aged Out No long er eligible based on patient's age to complete this topic Hepatitis B Vaccines Aged Out No long er eligible based on patient's age to complete this topic IPV Vaccines Aged Out No longer eligi ble based on patient's age to complete this topic Meningococcal Vaccine Aged Out No matilde desire eligible based on patient's age to complete this topic Rotavirus Vaccines Aged Out No longer eligible based on patient's age to complete this topic Procedures Procedure Name Priority Date/Time Associated Diagnosis Comments ECHOCARDIOGRAM Routine 09/03/2019 from Last 3 Months or Most Recently Relevant to Health Maintenance Results * Echocardiogram (09/03/2019) 09/03/2019 [facility] RADIOLOGY SYSTEM - 09/03/2019 12:00 AM EDT [address], [address] [address] TRANSTHORACIC ECHOCARDIOGRAM REPORT Patient Name: HUANG QUINTANA Reading Physician: [id number] Orosco MD Study Date: 09/03/2019 Referring Physician: Melecio Orosco MD MRN/PID: [id number] PCP: Accession/Order#: [id number] Department Location: [facility] Date of : 1955 Fellow: Gender: M Nurse: Admit Date: Hog Handler: Linda Gray RD, [facility] Height: 175.26 cm CC Report to: Weight: 140.62 kg Study Type: Echocardiogram BSA: 2.49 m2 Blood Pressure: 112 /82 mmHg Diagnosis/ICD: I48.21-Permanent AFib Indication: Diabetes, HTN, Asthma, Morbid Obesity Procedure/CPT: Echo Complete w Full [id number] Study Detail: The following Echo studies were performed: 2D, M-Mode, Doppler and color flow. Optison used as a contrast agent for endocardial border definition. Total contrast used for this procedure was 0.7 mL via IV push. PHYSICIAN INTERPRETATION: Left Ventricle: The left ventricular systolic function is normal, with an estimated ejection fraction of 65%. There are no regional wall motion abnormalities. The left ventricular cavity size is normal. The left ventricular septal wall thickness is mildly increased. There is mildly increased left ventricular posterior wall thickness. Spectral Doppler shows a normal pattern of left ventricular diastolic filling. Left Atrium: The left atrium is normal in size. Right Ventricle: The right ventricle is normal in size. There is normal right ventricular global systolic function. Right Atrium: The right atrium is normal in size. Aortic Valve: The aortic valve is trileaflet. There is no evidence of aortic valve regurgitation. The peak instantaneous gradient of the aortic valve is 4.8 mmHg. The mean gradient of the aortic valve is 3.0 mmHg. Mitral Valve: The mitral valve is normal in structure. There is no evidence of mitral valve regurgitation. Tricuspid Valve: The tricuspid valve is structurally normal. There is trace tricuspid regurgitation. Pulmonic Valve: The pulmonic valve is not well visualized. There is no indication of pulmonic valve regurgitation. Pericardium: There is no pericardial effusion noted. Aorta: The aortic root is normal. CONCLUSIONS: 1. The left ventricular systolic function is normal with a 65% estimated ejection fraction. QUANTITATIVE DATA SUMMARY: 2D MEASUREMENTS: Normal Ranges: Ao Root d: 2.70 cm (2.0-3.7cm) LAs: 3.40 cm (2.7-4.0cm) RVIDd: 3.80 cm (0.9-3.6cm) IVSd: 1.20 cm (0.6-1.1cm) LVPWd: 1.10 cm (0.6-1.1cm) LVIDd: 4.60 cm (3.9-5.9cm) LVIDs: 3.40 cm LV Mass Index: 77.5 g/m2 LV % FS 26.1 % LV SYSTOLIC FUNCTION BY 2D PLANIMETRY (MOD): Normal Ranges: EF-A4C View: 71.2 % (>55%) LV DIASTOLIC FUNCTION: Normal Ranges: MV Peak E: 0.95 m/s (0.7-1.2 m/s) MITRAL VALVE: Normal Ranges: MV Vmax: 1.02 m/s (<1.3m/s) MV peak P.2 mmHg (<5mmHg) MV mean P.0 mmHg (<48mmHg) AORTIC VALVE: Normal Ranges: AoV Vmax: 1.10 m/s (<1.7m/s) AoV Peak P.8 mmHg (<20mmHg) AoV Mean P.0 mmHg (1.7-11.5mmHg) LVOT Max Javier: 0.95 m/s (<1.1m/s) AoV VTI: 22.20 cm (18-25cm) LVOT VTI: 19.40 cm LVOT Diameter: 1.80 cm (1.8-2.4cm) AoV Area, VTI: 2.22 cm2 (2.5-5.5cm2) AoV Area,Vmax: 2.19 cm2 (2.5-4.5cm2) AoV Dimensionless Index: 0.87 TRICUSPID VALVE/RVSP: Normal Ranges: Peak TR Velocity: 2.30 m/s RV Syst Pressure: 26.2 mmHg (< 30mmHg) PULMONIC VALVE: Normal Ranges: PV Max Javier: 0.8 m/s (0.6-0.9m/s) PV Max P.5 mmHg [id number] Orosco MD Electronically signed on 09/03/2019 at 4:48:40 PM Final Procedure Note Conversion, Syngo - 07/27/[address], [address] [place] [address] TRANSTHORACIC ECHOCARDIOGRAM REPORT Patient Name: HUANG QUINTANA Reading Physician: Melecio Cortez MD Study Date: 09/03/2019 Referring Physician: Melecio Cortez MD MRN/PID: [id number] PCP: Accession/Order#: [id number] Department Location: [facility] Date of : 1955 Fellow: Gender: M Nurse: Admit Date: Hog Handler: Linda Gray RD,T Height: 175.26 cm CC Report to: Weight: 140.62 kg Study Type: Echocardiogram BSA: 2.49 m2 Blood Pressure: 112 /82 mmHg Diagnosis/ICD: I48.21-Permanent AFib Indication: Diabetes, HTN, Asthma, Morbid Obesity Procedure/CPT: Echo Complete w Full [id number] Study Detail: The following Echo studies were performed: 2D, M-Mode,Doppler and color flow. Optison used as a contrast agent forendocardial border definition. Total contrast used for this procedurewas 0.7 mL via IV push. PHYSICIAN INTERPRETATION: Left Ventricle: The left ventricular systolic function is normal, with anestimated ejection fraction of 65%. There are no regional wall motionabnormalities. The left ventricular cavity size is normal. The leftventricular septal wall thickness is mildly increased. There is mildlyincreased left ventricular posterior wall thickness. Spectral Dopplershows a normal pattern of left ventricular diastolic filling. Left Atrium: The left atrium is normal in size. Right Ventricle: The right ventricle is normal in size. There is normalright ventricular global systolic function. Right Atrium: The right atrium is normal in size. Aortic Valve: The aortic valve is trileaflet. There is no evidence ofaortic valve regurgitation. The peak instantaneous gradient of the aorticvalve is 4.8 mmHg. The mean gradient of the aortic valve is 3.0 mmHg. Mitral Valve: The mitral valve is normal in structure. There is noevidence of mitral valve regurgitation. Tricuspid Valve: The tricuspid valve is structurally normal. There istrace tricuspid regurgitation. Pulmonic Valve: The pulmonic valve is not well visualized. There is noindication of pulmonic valve regurgitation. Pericardium: There is no pericardial effusion noted. Aorta: The aortic root is normal. CONCLUSIONS: 1. The left ventricular systolic function is normal with a 65% estimatedejection fraction. QUANTITATIVE DATA SUMMARY: 2D MEASUREMENTS: Normal Ranges: Ao Root d: 2.70 cm (2.0-3.7cm) LAs: 3.40 cm (2.7-4.0cm) RVIDd: 3.80 cm (0.9-3.6cm) IVSd: 1.20 cm (0.6-1.1cm) LVPWd: 1.10 cm (0.6-1.1cm) LVIDd: 4.60 cm (3.9-5.9cm) LVIDs: 3.40 cm LV Mass Index: 77.5 g/m2 LV % FS 26.1 % LV SYSTOLIC FUNCTION BY 2D PLANIMETRY (MOD): Normal Ranges: EF-A4C View: 71.2 % (>55%) LV DIASTOLIC FUNCTION: Normal Ranges: MV Peak E: 0.95 m/s (0.7-1.2 m/s) MITRAL VALVE: Normal Ranges: MV Vmax: 1.02 m/s (<1.3m/s) MV peak P.2 mmHg (<5mmHg) MV mean P.0 mmHg (<48mmHg) AORTIC VALVE: Normal Ranges: AoV Vmax: 1.10 m/s (<1.7m/s) AoV Peak P.8 mmHg (<20mmHg) AoV Mean P.0 mmHg (1.7-11.5mmHg) LVOT Max Javier: 0.95 m/s (<1.1m/s) AoV VTI: 22.20 cm (18-25cm) LVOT VTI: 19.40 cm LVOT Diameter: 1.80 cm (1.8-2.4cm) AoV Area, VTI: 2.22 cm2 (2.5-5.5cm2) AoV Area,Vmax: 2.19 cm2 (2.5-4.5cm2) AoV Dimensionless Index: 0.87 TRICUSPID VALVE/RVSP: Normal Ranges: Peak TR Velocity: 2.30 m/s RV Syst Pressure: 26.2 mmHg (< 30mmHg) PULMONIC VALVE: Normal Ranges: PV Max Javier: 0.8 m/s (0.6-0.9m/s) PV Max P.5 mmHg [id number] Vel Orosco MD Electronically signed on 09/03/2019 at 4:48:40 PM Final us Syngo Conversion CV ECHO PROCEDURES Final Result [facility] [address] from Last 3 Months or Most Recently Relevant to Health Maintenance Insurance [facility] MEDICARE MEDICARE PART A AND B [facility] MEDICARE Member Subscriber Plan / Payer (Ef fective 2024-Present) Name:Huang Quintana Relation to Subscriber:Self Name:Huang Quintana Payer ID:Not on file Type:Not on file Address: [facility] [address] [place] [phone] MEDICARE PART A AND B Care Teams Grain Manager Relationship Specialty Start Date End Date Satish Pratt MD [address] [facility] [place] [address] PCP - General Family Medicine 12/24/23
--- OUTSIDE RECORDS SUMMARY | 2025-04-05 17:11 | XMS_ITS | Patient Health Record ---
Author Organization [facility] Address [address] [place], [place] [address] Care Team Providers Care Gluing Pressman Name Role Phone Kaleb Marquis Unavailable [phone] Allergies No Known Allergies Reason For Referral No Information Medications Medication SIG (Take, Route, Frequency, Duration) Notes Start Date End Date Status [facility] Lancets Micro Thin 33G - 1 Lancet Used Once a day to check; Duration: 90 day Active Bumetanide 1 MG TAKE 1 TABLET BY NORMAN TH EVERY DAY Oral Once a day; Duration: 90 days Active Torsemide 20 MG TAKE 1/2 TABLET BY M OUTH DAILY Oral DAILY; Duration: 90 days Active Tolterodine Tartrate ER 4 MG 1 capsule Oral Once a day; Duration: 30 days Active Metoprolol Tartrate 100 MG as directed O ral twice daily 06/08/2019 Active Lasix 20 MG 1 (one) Tablet Oral once a day 07/08/2014 Active Eliquis 5 MG 1 tablet Orally twic e a day; Duration: 30 days Active Vitamin C 1000 MG 1 tablet Orally Once a day Active Magnesium 250 MG 2 tabs Orally Once a day Active metFORMIN HCl ER 500 MG 1 tablet Orally Twice a day; Duration: 90 days Active Albuterol Sulfate HFA 108 (90 Base) MCG/ACT 2 puff as needed Inhalation every 4 hrs; Duration: 30 days 12/11/2022 Active True Metrix Blood Glucose Test - USE TO TEST ONCE A DAY; Duration: 100 Active Social History Tobacco Use: Social History Observation Description Date Details (start date - stop date) Never Smoker NA - NA Sex Assigned At : Social History Observation Description Sex Assigned At Male Household Question Answer Notes Number of adults in household: 1 Number of children in household: 0 Tobacco Use/Smoking Question Answer Notes Tobacco use: nonsmoker patient enter ed data CAGE-AID Questionnaire (2018 Edition) Question Answer Notes Have you ever felt that you ought to cut down on your drinking or drug use? No patient entered data Have people annoyed you by c riticizing your drinking or drug use? No patient entered data Have you ever felt bad or gu ilty about your drinking or drug use? No patient entered data Have you ever had a drink or used drugs first thing in the morning to steady your nerves or to get rid of a hangover? No patient entered data CAGE-AID Score 0 Interpretation Negative PRAPARE Question Answer Notes Date Completed/Updated: 08/13/2023 waqar nt entered data What is your current housing situation? I have housing patient entered data Are you worried about losing your housing? No patient entered data What is the highest level of school that you have finished? High school diploma or GED patient entered data What is your current work situation? Otherwise unemployed but not seeking work (ex. 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 Check all that apply I do not have problems meeting my needs Has lack of transportation k ept you from medical appointments, meetings, work or from getting things needed for daily living? No How often do you see or talk to people that you care about and feel close to? (For example: talking to friends on the phone, visiting friends or family, going to pentecostal or club meetings) 3 to 5 times a week patient entered data How stressed are you? Stress is when someone feels tense, nervous, anxious, or can't sleep at night because their mind is troubled Not at all patient entered data In the past year have you sp ent more than 2 nights in a row in a halfway, [place] [facility] [place], [facility] center, or juvenile correctional facility? No patient entered data Are you a refugee? No patient en tered data What country are you from? [place] silvia adan entered data Do you feel physically and emotionally safe where you currently live? Yes patient entered data In the past year, have you b een afraid of your partner or ex-partner? No patient entered data PRAPARE Score: 4 Problems Problem Type SNOMED Code ICD Code Onset Dates Problem Status W/U Status Risk Notes Problem Type II diabetes mellitus without complication (240105412) Type 2 diabetes mellitus without complication, without long-term current use of insulin (E11.9) Active confirmed Problem COPD - Chronic obstructive pulmonary disease (54614645) Chronic obstructive pulmonary disease, unspecified COPD type (J44.9) Active confirmed Problem Dyspnea (067377397) Shortness of breath on exertion (R06.02) Inactive confirmed Comment:-Order stress test for worsening SOB and pre-surgical clearance for total knee replacement -F/u after results, Problem Cellulitis (156602249) Cellulitis (L03.90) Inactive confirmed Comment:-pt is have drainage from his right lower leg right now -also a wound there that is seeping -clearish/yello w drainage -sounds like pt need increase in water pill. will increase to Bumex 2mg in the morning from 1mg -c/w spironolactone -will also give keflex - just to be on the safe side. Likely overkill - but may help wound heal faster -make f/u appt with cardio -f/u me if not improving, Problem COPD - Chronic obstructive pulmonary disease (27357154) COPD (chronic obstructive pulmonary disease) (J44.9) Active confirmed Comment:-pt has hx of COPD -currently taking Advair 115-21mcg BID. Changed from Dulera 100-5mcg so pt could get through patient assist). Also has albuterol inhaler PRN -using rescue inhaler sparingly -breathing has been pretty good recently -pt states he had PFTs within the couple years - showed mild COPD -c/w with current medication at this time -f/u in 3 months or sooner if issues arise, Problem Atrial fibrillation (50381647) Atrial fibrillation (I48.91) Active confirmed Comment:-pt has a hx of A.fib -in A.fib during appt today -pt states that he is always in A.fib -not having any palpitations or any other sx -is currently taking Eliquis 5mg BID and metoprolol 100mg BID for rate control -c/w current medication at this time and c/w cardiology appts -saw cardio 12/2020, f/u with cardio in 1 year -f/u in 3 months or as needed for issues, Problem Hypertension (98801581) HTN (hypertension) (I10) Active confirmed Problem Peripheral venous insufficiency (67289149) Venous insufficiency of right leg (I87.2) Active confirmed Problem Tenosynovitis of foot and ankle (M65.879) Inactive confirmed Description: TEN OSYNOVITIS, FOOT/ANKLE Problem Edema (685558966) Lower extremity edema (R60.0) Inactive confirmed Comment:Pt and sister state on fci bumex 1mg daily with spironolactone 25mg qd. States LE edema resolved. Appears that affected this extremity only. Will go back to 1mg daily. Can go back to 2mg qd if needed pending upcoming appt. Sister states called Cardiology, but was not able to reach anyone. Will try to contact them again., Problem Osteoarthritis of knee (994997675) Osteoarthritis of both knees, unspecified osteoarthritis type (M17.0) Active confirmed Comment:-Pt has chronic, significant OA of both knees -Limits ability to walk; requires use of rollator walker -Having total right knee replacement -Needs renewal of handicap placard, Problem Varicose veins of both legs (689587614794553 06) Varicose veins of legs (I83.93) Active confirmed Problem Atrial fibrillation (68464020) Atrial fibrillation, unspecified type (I48.91) Active confirmed Problem Congestive heart failure (67896695) CHF (congestive heart failure) (I50.9) Active confirmed Comment:-pt has a hx of CHF -was following with cardiology - Dr. 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 -Have see Cardio in [place] - a Dr. Orosco who is associated with [facility] -pt currently taking Bumex 1mg BID, Magnesium 500mg QD, and metoprolol 75mg BID... cardio stopped lisinopril 2.5mg and increased metoprolol to 75mg BID from 50mg BID. -his sx seem well controlled at this time - no SOB, or cough, minimal edema -c/w current medication at this time -last saw cardio in 06/2020 and they did not make any changes at that time. -f/u in 3 month, Plan Of Treatment No Information Insurance Providers Payer Name Payer Address Payer Phone Subscriber Number Group Number Insured Name Patient Relationship to Insured Coverage Start Date Coverage End Date Medicare NGS PPS [address] [place], [place] [id number] Butch Robles Self - patient is the insured 0 Medical (General) History Medical History History ICD Code Atrial fibrillation Congestive heart failure COPD (chronic obstructive pulmonary dise ase) Diabetes mellitus type II, controlled, C OMMENTS: -A1c from 05/2020 was 6.4%. -LDL from 05/2020 was 79. Peripheral edema Surgical History Surgery Date(Month/Year) Rotator Cuff Repair - Left Tonsillectomy Knee Replacement, Total Bilateral Cataract surgery on the right eye 9 Cataract Surgery, Left 10/07/18 Hip replacement, Left
--- OUTSIDE RECORDS SUMMARY | 2025-04-05 17:11 | XMS_ITS | Clinical Summary ---
Author Organization [facility] Address [address] [place] [address] Care Team Providers Care Part Time Name Role Phone Ignacio Paty MILITARY EXCHANGE WIRELESS MANAGER-C Primary Care Provider [phone] Allergies No known active allergies Medications Eliquis 5 mg tablet Take 5 mg by mouth in the morning and at bedtime. 11/07/2023 Active metFORMIN XR (Glucophage-XR) 500 mg 24 hr tablet Take 500 mg by mouth 2 times daily. Active tolterodine LA (Detrol LA) 4 mg 24 hr capsule Take 4 mg by mouth in the morning. 08/01/2023 Active torsemide (Demadex) 20 mg tablet Take 10 mg by mouth in the morning. 11/07/2023 Active albuterol 90 mcg/actuation inhaler Inhale. Active FreeStyle Sean 2 Sensor kit CHECK BLOOD SUGAR 4 TIMES A DAY 11/29/2023 Active Dulera 100-5 mcg/actuation inhaler INHALE 2 PUFFS TWICE DAILY FOR 30 DAYS 12/23/2023 Active atorvastatin (Lipitor) 80 mg tabletIndication s:Chronic ischemic heart disease, unspecified Take 1 tablet (80 mg) by mouth at bedtime. 30 tablet 1 01/14/2024 Active dapagliflozin propanediol (Farxiga) 10 mgIndications:Ch ronic ischemic heart disease, unspecified Take 1 tablet (10 mg) by mouth in the morning for 60 doses. 30 tablet 1 01/14/2024 Active nitroglycerin (Nitrostat) 0.4 mg SL tabletIndication s:Chronic ischemic heart disease, unspecified Place 1 tablet (0.4 mg) under the tongue every 5 (five) minutes if needed for chest pain for up to 25 doses. 25 tablet 01/14/2024 Active spironolactone (Aldactone) 25 mg tabletIndication s:Chronic ischemic heart disease, unspecified Take 1 tablet (25 mg) by mouth in the morning for 60 doses. 30 tablet 1 01/14/2024 Active valsartan (Diovan) 40 mg tabletIndication s:Chronic ischemic heart disease, unspecified Take 1 tablet (40 mg) by mouth in the morning for 60 doses. 30 tablet 1 01/14/2024 Active metoprolol succinate XL (Toprol-XL) 25 mg 24 hr tabletIndication s:Chronic ischemic heart disease, unspecified Take 1 tablet (25 mg) by mouth in the morning. Do not crush or chew. 30 tablet 1 01/14/2024 Active bumetanide (Bumex) 1 mg tabletIndication s:Shortness of breath Take 1 tablet (1 mg) by mouth in the morning. 30 tablet 01/15/2024 Active Active Problems Problem Noted Date Diagnosed Date NSTEMI (non-ST elevated myocardial infarction) 0 01/12/2024 Abdominal pain 01/12/2024 BPH with urinary obstruction 01/12/2024 Choledocholithiasis 01/12/2024 Chronic GERD 01/12/2024 Morbid obesity 01/12/2024 Constipation 01/12/2024 Depression 01/12/2024 Dyspnea 01/12/2024 Edema 01/12/2024 Anticoagulated 01/12/2024 Fluid retention 01/12/2024 Establishing care with new doctor, encounter for 01/12/2024 Excessive sweating 01/12/2024 Family history of prostate cancer 01/12/2024 Lightheadedness 01/12/2024 Nocturia 01/12/2024 Osteoarthritis 01/12/2024 Overview (01/12/2024): rght knee Urge incontinence 01/12/2024 Urinary urgency 01/12/2024 Ventricular premature beats 01/12/2024 Shortness of breath 12/24/2023 Overview (01/12/2024): Last Assessment & Plan: Seems to be worsening over last couple months No benefit from inhaler Developmental disability 10/15/2023 Class 3 severe obesity due t o excess calories with serious comorbidity and body mass index (BMI) of 45.0 to 49.9 in adult 10/03/2023 Macular degeneration 10/03/2023 Onychomycosis 10/03/2023 MIKAYLA (obstructive sleep apnea) 10/03/2023 Venous insufficiency of both lower extremities 0 10/03/2023 terminal carman current use of 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 therapy 0 09/23/2023 Overview (01/12/2024): Last Assessment & Plan: CHADS VASc 3 chronically anticoagulated full dose Eliquis age 68, weight 141 kg Denies bleeding diatheses BMI 45.0-49.9, adult 09/23/2023 Overview (01/12/2024): Last Assessment & Plan: Weight is up 11 pounds, no overt volume overload Asthma 09/05/2023 Diabetes mellitus 09/05/2023 Permanent atrial fibrillation 09/05/2023 Overview (01/12/2024): Last Assessment & Plan: Chronic atrial fibrillation with treatment strategy rate control on metoprolol Pedal edema 09/05/2023 Overview (01/12/2024): Last Assessment & Plan: Chronic venous stasis changes Obesity, Class III, BMI 40-49.9 (morbid obesity) 03/12/2017 Pain in left hip 09/09/2015 Presence of left artificial hip joint 09/09/2015 Aftercare following joint replacement surgery Paroxysmal atrial fibrillation 06/10/2015 Fibromyalgia 05/15/2015 Major depressive disorder, recurrent, unspecifie d 05/15/2015 Difficulty in walking, not elsewhere classified 05/13/2015 Pain in left knee 05/13/2015 Unspecified atrial flutter 05/13/2015 Anemia in other chronic diseases classified else where 02/25/2015 Other asthma 02/25/2015 Muscle weakness (generalized) 02/25/2015 Primary generalized (osteo)arthritis 02/25/2015 Primary hypertension 02/25/2015 Overview (01/12/2024): Last Assessment & Plan: Optimal in office Type 2 diabetes mellitus without complications 0 02/25/2015 Unspecified abnormalities of gait and mobility 0 02/25/2015 Chronic ischemic heart disease, unspecified 09/2014 Family History Medical History Relation Name Comments Prostate cancer Father Relation Name Status Comments Father Social History Tobacco Use Types Packs/Day Years Used Date Smoking Tobacco: Never Smokeless Tobacco: Never [facility] Utilities Answer Date Recorded In the past 12 months has th e electric, gas, oil, or water company threatened to shut off services in your home? No 01/12/2024 Humiliation, Afraid, Rape, and Kick questionnair e Answer Date Recorded Within the last year, have y ou been afraid of your partner or ex-partner? No 01/12/2024 Emotionally Abused Not on file 01/12/2024 Physically Abused Not on file 01/12/2024 Sexually Abused Not on file 01/12/2024 Overall Financial Resource Strain (CARDIA) Answe r Date Recorded How hard is it for you to pa y for the very basics like food, housing, medical care, and heating? Not hard at all 01/12/2024 Transportation Answer Date Recorded In the past 12 months, has l ack of transportation kept you from medical appointments or from getting medications? No 01/12/2024 Lack of Transportation (Non-Medical) Not on file 01/12/2024 Housing Stability Vital Sign Answer Aamir e Recorded Unable to Pay for Housing in the Last Year Not o n file 01/12/2024 Number of Places Lived in the Last Year Not on f ile 01/12/2024 In the last 12 months, was t here a time when you did not have a steady place to sleep or slept in a fpc (including now)? No 01/12/2024 Hunger Vital Sign Answer Date Recorded Within the past 12 months, y ou worried that your food would run out before you got the money to buy more. Never true 01/12/20 24 Ran Out of Food in the Last Year Not on file 01/12/2024 Sex and Gender Information Value Date Recorded Sex Assigned at Not on file Legal Sex Male 9:35 PM EDT Gender Identity Not on file Sexual Orientation Not on file Last Filed Vital Signs Vital Sign Reading Time Taken Comments Blood Pressure 124/77 01/15/2024 12:35 PM EDT Pulse 81 01/15/2024 12:35 PM EDT Temperature 37 C (98.6 F) 01/15/2024 12:35 PM EDT Respiratory Rate 24 01/15/2024 12:35 PM EDT Oxygen Saturation 94% 01/15/2024 12:35 PM EDT Inhaled Oxygen Concentration - - Weight 130 kg (286 lb) 01/15/2024 4:49 AM EDT Height 170.2 cm (5' 7 ) 01/12/2024 6:00 PM EDT Body Mass Index 44.79 01/12/2024 6:00 PM EDT Plan of Treatment Health Maintenance Due Date Last Done Comments CT Colonography 1955 Diabetes: Hemoglobin A1C 1955 FIT-DNA 1955 FIT 1955 FOBT 1955 Medicare Annual Wellness (AWV) 1955 Sigmoidoscopy 1955 Diabetes: Retinopathy Screening 1965 Depression Screening 1967 Diabetes: Urine Protein Screening 1974 Pneumococcal Vaccine: 50+ Years (1 of 2 - PCV) 1974 Adult Tetanus 1977 Zoster Vaccines (1 of 2) 2005 Fall Risk Screening 2020 COVID-19 Vaccine ( season) 2025 03/24/2021, 09/09/2020, 08/19/2020, Additional history exists Influenza Vaccine (#1) 2025 Colonoscopy 05/13/2029 05/13/2019 Colorectal Cancer Screening 05/13/2029 HIB Vaccines Aged Out No longer eligi ble based on patient's age to complete this topic HPV Vaccines Aged Out No longer eligi ble based on patient's age to complete this topic IPV Vaccines Aged Out No longer eligi ble based on patient's age to complete this topic Meningococcal B Vaccine Aged Out No l onger eligible based on patient's age to complete this topic Meningococcal Vaccine Aged Out No matilde desire eligible based on patient's age to complete this topic Rotavirus Vaccines Aged Out No longer eligible based on patient's age to complete this topic Medical Devices Implanted Type Area Manager Of Change Device Identifier Shelf Expiration Date Model / Serial / Lot Yary Monsivais 3.00 X 16 - [id number] - [id number] Implanted:Qty: 1 on 01/13/2024 by Angus Maurice MD at [facility] El[employer] [id number] 08/07/2025 [id number] / [id number] / [id number] Insurance [employer] Advance Directives * Full Code (Latest Code Status on File) Date Activated Date Inactivated Comments 01/12/2024 6:20 PM 01/15/2024 4:31 PM Care Teams Part Time Relationship Specialty Start Date End Date Paty Pierre FNP-C [address] [place] [address] PCP - General Nurse Practitioner 01/13/24
--- OUTSIDE RECORDS SUMMARY | 2025-04-05 17:11 | XMS_ITS | Encounter Summary ---
Author Organization [facility] Address [address] [place] [address] Phone Care Team Providers Care String Cutter Name Role Phone Satish Pratt MD Primary Care Provider [phone] Encounter Details Date Type Department Care Team (Late st Contact Info) Description 01/08/2024 Scanned Document [facility] [address] [place] [phone] Scanning, Generic Provider Social History Tobacco Use Types Packs/Day Years Used Date Smoking Tobacco: Never Smokeless Tobacco: Never Alcohol Use Standard Drinks/Week Comments Never 0 (1 standard drink = 0.6 oz pur e alcohol) Sex and Gender Information Value Date Recorded Sex Assigned at Not on file Legal Sex Male 9:10 PM EST Gender Identity Not on file Sexual Orientation Not on file COVID-19 Exposure Response Date Recorded In the last 10 days, have yo u been in contact with someone who was confirmed or suspected to have Coronavirus/COVID-19? No / Unsure 12/24/2023 8:32 AM EDT documented as of this encounter Plan of Treatment Upcoming Encounters Date Type Department Care Team (Late st Contact Info) Description 04/08/2025 10:50 AM EDT Office Visit [facility] [address] [place] [address] Stacey Varela MD [address] [place] [address] documented as of this encounter Procedures Procedure Name Priority Date/Time Associated Diagnosis Comments OUTSIDE IMAGING SCAN 01/08/2024 documented in this encounter Results * OUTSIDE IMAGING SCAN (01/08/2024) Anatomical Region Laterality Modality Other Narrative 01/08/2024 Ordered by an unspecified provider. us Generic Provider Scanning OUTSIDE SCAN Final Result documented in this encounter Visit Diagnoses Not on filedocumented in this encounter Additional Health Concerns Assessment Noted Time A fall risk assessment has been complete d for the patient 12/24/2023 8:39 AM EDT documented as of this encounter Care Teams String Cutter Relationship Specialty Start Date End Date Satish Pratt MD [address] [facility]icians [facility] [place] [address] PCP - General Family Medicine 12/24/23 documented as of this encounter
--- OUTSIDE RECORDS SUMMARY | 2025-04-05 17:11 | XMS_ITS | Encounter Summary ---
Author Organization [facility] Address [address] [place] [address] Phone Care Team Providers Care Business Development Specialist Name Role Phone Satish Pratt MD Primary Care Provider [phone] Encounter Details Date Type Department Care Team (Late st Contact Info) Description 02/04/2024 Scanned Document [facility] [address] [place] [phone] Scanning, Generic Provider Social History Tobacco Use [...] suspected to have Coronavirus/COVID-19? No / Unsure 01/22/2024 12:41 PM EDT documented as of this encounter Plan of Treatment Upcoming Encounters Date Type Department Care Team (Late st Contact Info) Description 04/08/2025 10:50 AM EDT Office Visit [facility] [address] [place] [address] Stacey Varela MD [address] [place] [address] documented as of this encounter Visit Diagnoses Not on filedocumented in this encounter Additional Health Concerns Assessment Noted Time A fall risk assessment has been complete d for the patient 01/22/2024 12:59 PM EDT documented as of this encounter Care Teams Business Development Specialist Relationship Specialty Start Date End Date Satish Pratt MD [address] [facility] [place] [address] PCP - General Family Medicine 12/24/23 documented as of this encounter
--- OUTSIDE RECORDS SUMMARY | 2025-04-05 17:11 | XMS_ITS | Patient Health Record ---
Author Organization [facility] Address [address] [place] [address] Care Team Providers Care Relay Telegrapher Name Role Phone Angus Lopez MD Primary Care Provider Sebastian Baires [phone] Allergies No Known Allergies Reason For Referral No Information Medications Medication SIG (Take, Route, Frequency, Duration) Notes Start Date End Date Status Metoprolol Tartrate 100 MG Oral; Duration: 90 Days Active metFORMIN HCl ER 500 MG Oral; Duration: 90 Days Active Torsemide 20 MG TAKE 1/2 TABLET BY M OUTH DAILY Oral; Duration: 90 Days Active Eliquis 5 MG TAKE 1 TABLET BY NORMAN TH TWICE A DAY Oral; Duration: 30 Days Active Spironolactone 25 MG Oral; Duration: 90 Days Active Tolterodine Tartrate ER 4 MG Oral; Duration: 90 Days Active Ventolin HFA 108 (90 Base) MCG/ACT Inhalation; Duration: 16 Days Active Social History Tobacco Use: Social History Observation Description Date Details (start date - stop date) Never Smoker NA - NA Tobacco Use/Smoking Question Answer Notes Patient is a nonsmoker Problems Problem Type SNOMED Code ICD Code Onset Dates Problem Status W/U Status Risk Notes Problem Disorder due to type 2 diabetes mellitus (658226026) Type 2 diabetes mellitus with unspecified complications (E11.8) Active confirmed Problem Peripheral venous insufficiency (70155802) Venous insufficiency (chronic) (peripheral) (I87.2) Active confirmed Encounters Encounter Location Date Provider Diagnosis [facility] [place] (PODIATRY) [address] [place] [address] [place] [address] 09/21/2024 Sebastian Fry Plan Of Treatment No Information Insurance Providers Payer Name Payer Address Payer Phone Subscriber Number Group Number Insured Name Patient Relationship to Insured Coverage Start Date Coverage End Date [employer] [id number] [place] [phone] [id number] Gan Self - patient is the insured Medical (General) History Medical History History ICD Code arthritis diabetes heart disease hypertension Surgical History Surgery Date(Month/Year) bilateral knees left shoulder cholecystectomy
--- OUTSIDE RECORDS SUMMARY | 2025-04-05 17:11 | XMS_ITS | Encounter Summary ---
Author Organization [facility] Address [address] [place] [address] Phone Care Team Providers Care Chalk Molding Machine Operator Name Role Phone Kaleb Gonzales PA-C Primary Care Provider [phone] Satish Pratt MD Primary Care Provider [phone]- [phone] Encounter Details Date Type Department Care Team (Late st Contact Info) Description 08/31/2019 Orders Only [facility] [address] [place] [address] Conversion, Onbase Social History Tobacco Use Types Packs/Day Years Used Date Smoking Tobacco: Never Assessed Sex and Gender Information Value Date Recorded Sex Assigned at Not on file Legal Sex Male 9:10 PM EST Gender Identity Not on file Sexual Orientation Not on file documented as of this encounter Plan of Treatment Upcoming Encounters Date Type Department Care Team (Late st Contact Info) Description 04/08/2025 10:50 AM EDT Office Visit [address] [place] [address] Stacey Varela MD 703 [facility] 2, [address] [place], [place] [id number] Scheduled Orders Name Type Priority Associated Diagnoses Orde r Schedule OUTSIDE LAB SCAN Lab Ordered: 08/31/2019 documented as of this encounter Visit Diagnoses Not on filedocumented in this encounter Care Teams Chalk Molding Machine Operator Relationship Specialty Start Date End Date Kaleb Gonzales PA-C PCP - General 06/24/99 12/23/23 Satish Pratt MD [facility]5 [facility] Physicians [facility] [place] [address] PCP - General Family Medicine 12/24/23 documented as of this encounter
--- OUTSIDE RECORDS SUMMARY | 2025-04-05 17:11 | XMS_ITS | Clinical Summary ---
Author Organization [facility] Address [address] [place] [address] Care Team Providers Care Operations Team Leader Name Role Phone Angus Lopez MD Primary Care Provider [phone] Allergies No known active allergies Medications apixaban (Eliquis) 5 MG tablet Take 5 mg by mouth in the morning and 5 mg before bedtime. Active torsemide (Demadex) 20 MG tablet Take 10 mg by mouth Daily Active magnesium oxide 500 MG tablet Take 500 mg by mouth in the morning. Active metoprolol tartrate (Lopressor) 25 MG tablet Take 25 mg by mouth in the morning and 25 mg before bedtime. 4 Active spironolactone (Aldactone) 25 MG tablet Take 25 mg by mouth Daily Active Ascorbic Acid (vitamin C) 1000 MG tablet Take 1,000 mg by mouth 1 (one) time each day at the same time Active glucose blood (True Metrix Blood Glucose Test) test strip 1 each by Other route if needed Active albuterol HFA 90 mcg/act inhaler Inhale 1 puff every 6 (six) hours if needed for wheezing or shortness of breath Active sennosides (Senokot) 8.6 MG tablet Take 1 tablet by mouth in the morning and 1 tablet before bedtime. Active tolterodine LA (Detrol LA) 4 MG 24 hr capsuleIndicati ons:Overactive Bladder Take 4 mg by mouth Daily Do not crush, chew, or split. Active metFORMIN (Glucophage) 500 MG tablet Take 500 mg by mouth in the morning and 500 mg in the evening. Take with meals. Active valsartan (Diovan) 40 MG tablet Take 40 mg by mouth Daily Active dapagliflozin (Farxiga) 10 MG Take 10 mg by mouth Daily Active clopidogrel (Plavix) 75 MG tablet Take 75 mg by mouth Daily Active LORazepam (Ativan) 1 MG tabletIndicatio ns:Memory impairment Take 1 tablet (1 mg) by mouth 1 time for 1 dose 1 tablet 4 Active Additional Information Patient not taking.Reported on 06/02/2024 nitroglycerin (Nitrostat) 0.[address] 0.4 mg under the tongue every 5 (five) minutes if needed for chest pain Active potassium chloride ER (Micro-K) 10 MEQ ER capsule Take 10 mEq by mouth in the morning and 10 mEq before bedtime. Do not crush or chew.. Active bumetanide (Bumex) 1 MG tablet Take 1 mg by mouth Daily Active atorvastatin (Lipitor) 80 MG tablet Take 80 mg by mouth at bedtime Active Active Problems Problem Noted Date Diagnosed Date Developmental disability 10/15/2023 Permanent atrial fibrillation 10/03/2023 Class 3 severe obesity due t o excess calories with serious comorbidity and body mass index (BMI) of 45.0 to 49.9 in adult 10/03/2023 Primary hypertension 10/03/2023 MIKAYLA (obstructive sleep apnea) 10/03/2023 Pedal edema 10/03/2023 Venous insufficiency of both lower extremities 0 10/03/2023 Type 2 diabetes mellitus wit hout complication, without long-term current use of insulin 10/03/2023 Onychomycosis 10/03/2023 Macular degeneration 10/03/2023 Encounters Date Type Department Care Team Description 01/05/2025 11:30 AM EDT Office Visit [facility] [address] [place] [address] Jose Farooq DPM Venous insufficiency of both lower extremities (Primary Dx); Type 2 diabetes mellitus without complication, without long-term current use of insulin (HCC); Pain due to onychomycosis of toenails of both feet 01/05/2025 Bamboo flowsheet [facility] [address] [place] [address] Jose Farooq DPM from Last 3 Months Family History Relation Name Status Comments Father Mother Social History Tobacco Use Types Packs/Day Years Used Date Smoking Tobacco: Never Smokeless Tobacco: Never Tobacco Cessation:Counseling Given: Yes Alcohol Use Standard Drinks/Week Comments Defer 0 (1 standard drink = 0.6 oz pur e alcohol) Sex and Gender Information Value Date Recorded Sex Assigned at Not on file Legal Sex Male 6:47 PM EDT Gender Identity Not on file Sexual Orientation Not on file Last Filed Vital Signs Vital Sign Reading Time Taken Comments Blood Pressure 128/77 10/16/2024 9:22 AM EDT Pulse 75 10/16/2024 9:22 AM EDT Temperature 36.6 C (97.8 F) 10/03/2023 10:06 AM EDT Respiratory Rate 16 01/05/2025 11:32 AM EDT Oxygen Saturation 92% 06/02/2024 12:29 PM EST Inhaled Oxygen Concentration - - Weight 118 kg (261 lb) 01/05/2025 11:32 AM EDT Height 172.7 cm (5' 8 ) 01/05/2025 11:32 AM EDT Body Mass Index 39.68 01/05/2025 11:32 AM EDT Plan of Treatment Upcoming Encounters Date Type Department Care Team (Late st Contact Info) Description 04/08/2025 11:30 AM EDT Office Visit [facility] [address] [facility] 120 [place] [phone] Jose Farooq, DPSameer 3006 [facility] 5 [place] [address] Health Maintenance Due Date Last Done Comments CT Colonography 1955 FIT-DNA 1955 FIT 1955 FOBT 1955 Sigmoidoscopy 1955 Pneumococcal Vaccine: 65+ Years (1 of 1 - PCV) 005 Influenza Vaccine (#1) 2025 Colonoscopy 05/13/2029 05/13/2019 Colorectal Cancer Screening 05/13/2029 Insurance MEDICARE Advance Directives Documents on File Type Date Recorded Patient Hand Paint Mixer Expl anation Power of Beef Killer 10/03/2023 10:08 AM Estephania gibbons of [employer] Killer Care Teams Operations Team Leader Relationship Specialty Start Date End Date Angus Lopez MD [address] [place] [address] PCP - General Family Medicine 10/03/23
--- OUTSIDE RECORDS SUMMARY | 2025-04-05 17:11 | XMS_ITS | Patient Health Record ---
Author Organization [facility] Address [address] [place] [address] [place] [address] Care Team Providers Care Accounts Payable Representative Name Role Phone Nba Palomo DO Primary Care Provider Unavail John Blevins Unavailable [phone] Reason For Referral No Information Plan Of Treatment No Information Insurance Providers Payer Name Payer Address Payer Phone Subscriber Number Group Number Insured Name Patient Relationship to Insured Coverage Start Date Coverage End Date Medicare Part B J-15 Part [facility] [place] [address] [place] [address] [id number] Butch Robles Self - patient is the insured Medicaid [place] [employer] Lindy Alvarezv [address] [place] [address] [id number] Butch Robles Self - patient is the insured
--- OUTSIDE RECORDS SUMMARY | 2025-04-05 17:11 | XMS_ITS | Encounter Summary ---
Author Organization [facility] Address [address] [place] [address] Phone Care Team Providers Care Associate Quality Engineer Name Role Phone Satish Pratt MD Primary Care Provider [phone] Encounter Details Date Type Department Care Team (Late st Contact Info) Description 12/24/[address] [facility] [address] [place] [phone] Scanning, Generic Provider Social History Tobacco Use [...] AM EDT documented as of this encounter Functional Status * Question Answer Date of Assessment Author BP 120/78 12/24/2023 8:39 AM EDT Sabrina Goddard LPN Pulse 70 12/24/2023 8:39 AM EDT Sabrina Goddard LPN * Communicable Disease Screening Question Answer Date of Assessment Author Do you have any of the follo wing new or worsening symptoms? None of these 12/24/2023 8:32 AM EDT Ned Louis documented as of this encounter Plan of Treatment Upcoming Encounters Date Type Department Care Team (Late st Contact Info) Description 04/08/2025 10:50 AM EDT [address] [place] [facility] 600 [place] [address] Stacey Varela MD 703 [facility] 2, [address] [place] [address] documented as of this encounter Visit Diagnoses Not on filedocumented in this encounter Additional Health Concerns Assessment Noted Time A fall risk assessment has been complete d for the patient 12/24/2023 8:39 AM EDT documented as of this encounter Care Teams Associate Quality Engineer Relationship Specialty Start Date End Date Satish Pratt MD 1255 [facility] Physicians [facility] [place] [address] PCP - General Family Medicine 12/24/23 documented as of this encounter
--- OUTSIDE RECORDS SUMMARY | 2025-04-05 17:11 | XMS_ITS | Encounter Summary ---
Author Organization [facility] Address [address] [place] [address] Phone Care Team Providers Care Process Chemist Name Role Phone Satish Pratt MD Primary Care Provider [phone] Reason for Visit * Reason Comments New Med Request Encounter Details Date Type Department Care Team ([facility] Contact Info) Description 10/07/[address] [place] [address] Stacey Varela MD 703 [facility] 2, [address] [place] [address] Essential hypertension; Lower extremity edema; Ischemic cardiomyopathy; Mixed hyperlipidemia; Essential (primary) hypertension Social History Tobacco Use Types Packs/Day Years [...] suspected to have Coronavirus/COVID-19? No / Unsure 09/22/2024 9:17 AM EDT documented as of this encounter Plan of Treatment Upcoming Encounters Date Type Department Care Team ([facility] Contact Info) Description 04/08/2025 10:50 AM EDT Office Visit [address] [place] [address] Stacey Varela MD 703 [facility] 2, [address] [place] [address] documented as of this encounter Visit Diagnoses Diagnosis Essential hypertension Unspecified essential hypertension Lower extremity edema Edema Ischemic cardiomyopathy Other specified forms of chronic ischemic heart disease Mixed hyperlipidemia Essential (primary) hypertension Unspecified essential hypertension documented in this encounter Additional Health Concerns Assessment Noted Time A fall risk assessment has been complete d for the patient 09/22/2024 9:49 AM EDT documented as of this encounter Care Teams Process Chemist Relationship Specialty Start Date End Date Satish Pratt MD 1255 [facility] Physicians [facility] [place] [address] PCP - General Family Medicine 12/24/23 documented as of this encounter
--- OUTSIDE RECORDS SUMMARY | 2025-04-05 17:11 | XMS_ITS | Encounter Summary ---
Author Organization [facility] Address [address] [place] [address] Phone Care Team Providers Care Installations Inspector Name Role Phone Kaleb Gonzales PA-C Primary Care Provider [phone] Satish Pratt MD Primary Care Provider [phone] Encounter Details Date Type Department Care Team (Late st Contact Info) Description 05/12/2019 Orders Only [facility] [address] [place] [address] Conversion, Onbase Social History Tobacco Use Types [...] Description 04/08/2025 10:50 AM EDT Office Visit [address] [place] [address] Stacey Varela MD 703 [facility] 2, [address] [place], [place] [phone] Scheduled Orders Name Type Priority Associated Diagnoses Orde r Schedule OUTSIDE LAB SCAN Lab Ordered: 05/12/2019 documented as of this encounter Visit Diagnoses Not on filedocumented in this encounter Care Teams Installations Inspector Relationship Specialty Start Date End Date Kaleb Gonzales PA-C PCP - General 06/24/99 12/23/23 Satish Pratt MD [facility]5 [facility] Physicians [facility] [place] [address] PCP - General Family Medicine 12/24/23 documented as of this encounter
--- OUTSIDE RECORDS SUMMARY | 2025-04-05 17:11 | XMS_ITS | Encounter Summary ---
Author Organization [facility] Address [address] [place] [address] Phone Care Team Providers Care Strawberry Grower Name Role Phone Satish Pratt MD Primary Care Provider [phone] Reason for Visit * Reason Comments New Med Request Encounter Details Date Type Department Care Team (Late st Contact Info) Description 10/08/[address] [place] [address] Stacey Varela MD [address] [place] [address] 2, [address] [place] [address] Ischemic cardiomyopathy Social History Tobacco Use Types Packs/Day Years [...] Care Team (Late Contact Info) Description 04/08/2025 10:50 AM EDT Office Visit [address] [place] [address] Stacey Varela MD [address] [place] [address] 2, [address] [place] [address] documented as of this encounter Visit Diagnoses Diagnosis Ischemic cardiomyopathy Other specified forms of chronic ischemic heart disease documented in this encounter Additional Health Concerns Assessment Noted Time A fall risk assessment has been complete d for the patient 09/22/2024 9:49 AM EDT documented as of this encounter Care Teams Strawberry Grower Relationship Specialty Start Date End Date Satish Pratt MD [address] [facility] Physicians [facility] [place] [address] PCP - General Family Medicine 12/24/23 documented as of this encounter
--- OUTSIDE RECORDS SUMMARY | 2025-04-05 17:11 | XMS_ITS | Encounter Summary ---
Author Organization [facility] Address [address] [place] [address] Care Team Providers Care Surface Grinder Name Role Phone Angus Lopez MD Primary Care Provider + [phone] Angus Lopez MD Unavailable [phone] Encounter Details Date Type Department Care Team (Late Contact Info) Description 10/07/2023 Orders Only [facility] [address] [place] [address] Kaleb Gonzales PA [address] [place], [place] [id number] Social History Tobacco Use Types Packs/Day Years [...] EDT Office Visit [facility] [address] [facility] 120 [place] [address] Jose Farooq DPM 3006 [facility] 5 [place] [address] documented as of this encounter Procedures Procedure Name Priority Date/Time Associated Diagnosis Comments MISCELLANEOUS LAB TEST Routine 9:25 AM EST documented in this encounter Results * - Miscellaneous Test (07/25/2023 9:25 AM EST) us Kaleb ROLON LAB BLOOD ORDERABLES Final Resul t documented in this encounter Visit Diagnoses Not on filedocumented in this encounter Care Teams Surface Grinder Relationship Specialty Start Date End Date Angus Lopez MD [address] [place] [address] PCP - General Family Medicine 10/03/23 Angus Lopez MD [address] [place] [address] PCP - Devoted 09/23/23 06/23/24 documented as of this encounter
--- OUTSIDE RECORDS SUMMARY | 2025-04-05 17:11 | XMS_ITS | Encounter Summary ---
Author Organization [facility] Address [address] [address] Phone Care Team Providers Care Cranberry Sorter Name Role Phone Satish Pratt MD Primary Care Provider [phone] Reason for Visit * Reason Comments New Med Request Encounter Details Date Type Department Care Team (Late st Contact Info) Description 10/07/2024 Refill [facility] [address] [place] [address] Pham Cotter, ROD FINISHER-PRIVATE MORTGAGE BANKER SAFE [address] [place], [place] [id number] Coronary artery disease of [place] artery of [place] heart with stable angina pectoris Social History Tobacco Use Types Packs/Day Years [...] AM EDT documented as of this encounter Miscellaneous Notes * Telephone Encounter - Kylah Rolon MA - 10/07/2024 11:30 AM EDT Received request for prescription refills for plavix Patient follows with Minoo grullon, sent to that office for review and orders documented in this encounter Plan of Treatment Upcoming Encounters Date Type Department Care Team (Late st Contact Info) Description 04/08/2025 10:50 AM EDT Office Visit [address] [place] [phone] Stacey Varela MD 703 [facility] 2, [address] [place] [address] documented as of this encounter Visit Diagnoses Diagnosis Coronary artery disease of [place] artery of [place] heart with stable angina pectoris documented in this encounter Additional Health Concerns Assessment Noted Time A fall risk assessment has been complete d for the patient 09/22/2024 9:49 AM EDT documented as of this encounter Care Teams Cranberry Sorter Relationship Specialty Start Date End Date Satish Pratt MD 1255 [facility] [place] [address] PCP - General Family Medicine 12/24/23 documented as of this encounter
--- OUTSIDE RECORDS SUMMARY | 2025-04-05 17:13 | XMS_ITS | CCD ---
Author Organization [facility] Care Team Providers Care Adult Nurse Practitioner Name Role Phone BANKS, KARISSA Unavailable Unavailable BANKS, KARISSA Unavailable Unavailable EVAN, LEONA W Unavailable Unavailable BANKS, KARISSA Unavailable Unavailable EVAN, LEONA W Unavailable Unavailable EVAN, LEONA W Unavailable Unavailable EVAN, LEONA W Unavailable Unavailable EVAN, LEONA W Unavailable Unavailable HOY, MELA Unavailable Unavailable HOY, MELA Unavailable Unavailable EVAN, LEONA W Unavailable Unavailable HOY, MELA Unavailable Unavailable EVAN, LEONA W Unavailable Unavailable EVAN, LEONA W Unavailable Unavailable EVAN, LEONA W Unavailable Unavailable EVAN, LEONA W Unavailable Unavailable None, No PCP Unavailable Unavailable Unavailable Unavailable Jesse Gonzales Unavailable JESSE GONZALES Primary Care Physician Unavailab salina Muñoz II, Dr. Vel Celaya Referring Unavailable McGuinn II, Dr. Vel Celaya Attending Unavailable Toni II, Dr. Vel Celaya Referring Unavailable McGuinn II, Dr. Vel Celaya Attending Unavailable Jesse Gonzales Primary Care Physician Jesse Gonzales PA-C Primary Care Provider Paty Pierre Primary Care Physician [phone] QUIQUEM, BASHAR Referring Unavailable MARGARET, KD Referring Unavailable BENY, LAUREANO Referring Unavailable DIAB, CAYLA Referring Unavailable MARGARET, KD Admitting Unavailable GABY FLOREZ Attending Unavailable MARGARET, KD Referring Unavailable MARGARET, KD Referring Unavailable DO Kyleigh Maciel Attending Provider NON STAFF Primary Care Provider UnavailPaty De Attending Unavailable Paty Pierre Admitting Unavailable Avi Lopez MD Primary Care Provider Avi Lopez MD Unavailable DO Avi Padgett Attending Provider DO Avi Padgett Referring Provider MD [facility] [phone] NON STAFF Primary Care Unavailable Kyleigh Maciel Attending Unavailable Kyleigh Maciel Admitting Unavailable Terence Satish Primary Care Unavailable Avi Padgett Referring Unavailab Avi Mcneal Attending Unavailab Avi Mcneal Admitting Unavailab salina oLpez MD, Avi Unavailable Terence DAVIDSON, [facility] Provider [phone] Ignacio, Paty Nagel Attending Unavailable Ignacio, Paty Nagel Attending Unavailable Ignacio, Paty Nagel Admitting Unavailable Ignacio, Paty Nagel Attending Unavailable Ignacio, Paty Nagel Admitting Unavailable Ignacio, Paty Nagel Attending Unavailable Ignacio, Paty Nagel Attending Unavailable Ignacio, Paty Nagel Attending Unavailable Ignacio, Paty Nagel Attending Unavailable Ignacio, Paty Nagel Attending Unavailable Ignacio, Paty Nagel Attending Unavailable Terence DAVIDSON, [facility] Provider Ignacio, Paty Nagel Admitting Unavailable Ignacio, Paty Nagel Attending Unavailable Karissa BANKS Attending Unavailable Karissa BANKS Admitting Unavailable BRENDA COTTER Attending Unavailable [facility] Unavailable BRENDA COTTER Attending Unavailable BRENDA COTTER Referring Unavailable [facility] Unavailable BRADLEY ANTONIO Attending Unavailable BRENDA COTTER Referring Unavailable [facility] Unavailable BRADLEY ANTONIO Attending Unavailable BRADLEY ANTONIO Referring Unavailable [facility] Unavailable EMRE ORELLANA Attending Unavailable DOLEMRE PRAJAPATI Attending Unavailable EMRE ORELLANA Attending Unavailable AVI PADGETT Attending Unavailable JOSE MOULTON Attending Unavailable AVI PADGETT Referring Unavailable JOSE WHITNEY Attending Unavailable EMRE ORELLANA Attending Unavailable JOSE MOULTON Attending Unavailable HALEIGH MELCHOR Attending Unavailable Ignacio, Paty Nagel Attending Unavailable Ignacio, Paty L Attending Unavailable Ignacio, Paty L Attending Unavailable Ignacio, Paty L Attending Unavailable Karissa BANKS Attending Unavailable Satish Pratt Attending Unavailable Satish Pratt Referring Unavailable Avi Padgett Admitting Unavaila Avi Smith Attending Unavaila ble Ignacio, Paty L Admitting Unavailable Ignacio, GROUP UNDERWRITER Paty L Attending Unavailable Ignacio, GROUP UNDERWRITER Paty L Admitting Unavailable Ignacio, GROUP UNDERWRITER Paty L Attending Unavailable Ignacio, GROUP UNDERWRITER Paty L Attending Unavailable Ignacio, GROUP UNDERWRITER Paty L Attending Unavailable Orzech, Ruth X Attending Unavailable Orzech, Ruth X Attending Unavailable Ignacio, Paty L Attending Unavailable Ignacio, Paty L Attending Unavailable Orzech, Ruth X Attending Unavailable Karissa BANKS Admitting Unavailable Karissa BANKS Attending Unavailable Ignacio, Paty L Admitting Unavailable Ignacio, Paty L Attending Unavailable Ignacio, Paty L Attending Unavailable Ignacio, Paty L Attending Unavailable Medications Current Medications Medication Drug Class(es) Dates Sig (Normalized) Sig (Original) [id number] 200 actuat albuterol 0.09 mg/actuat metered dose inhaler (20 sources) beta2-Adrenergic Agonist Start: 02-04-2024 Albuterol Sulfate Active 1 INH INHALATION Daily February 04, 2024 12:00am Start: 06-26-2021 Proventil HFA Inhalation, q6hr, Refills(s) 0 Start Date: 06/26/21 Status: Ordered take 1 puff(s) by in halation every six hours for wheezing albuterol HFA 90 mcg/act inhaler Inhale 1 puff every 6 (six) hours if needed for wheezing or shortness of breath Active albuterol (Promise libby HFA) 90 mcg/actuation inhaler Inhale. Active Ventolin HFA 108 (90 Base) MCG/ACT Inhalation Aerosol Solution as directed Quantity: 0 Refills: 0 Ordered: 03-Jan-2022 DO Active Albuterol (Eqv-Ventolin HFA) 90 mcg/inh inhalation aerosol (11 sources) Start: 10-12-2024 Albuterol (Eqv -Ventolin HFA) 90 mcg/inh inhalation aerosol See Instructions, 18 EA, Refill(s) 1, INHALE 2 PUFFS BY MOUTH EVERY 4 HOURS NEEDED, [facility], 175.3, cm, 03/21/25 11:46:00 EDT, Height/Length Dosing, 123, kg, 09/11/24 11:46:00 EDT, Weight Dosing Start Date: 10/12/24 Status: Ordered Quantity: 18.0 Unit: EA Repeat number: 2 Start: 12-23-2023 Albuterol (Eqv -Ventolin HFA) 90 mcg/inh inhalation aerosol See Instructions, 18 EA, Refill(s) 5, INHALE 2 PUFFS BY MOUTH EVERY 4 HOURS NEEDED, [id number], 174.5, cm, 11/26/23 13:13:00 EDT, Height/Length Dosing, 139.5, kg, 11/26/23 13:13:00 EDT, Weight Dosing Start Date: 12/23/23 Status: Ordered apixaban 5 mg oral tablet (20 sources) Factor Xa Inhibitor Start: 09-06-2015 End: 09-22-2025 take 5 mg by mouth twice daily Eliquis 5 mg, Oral, BID, Blood Thinner Start Date: 09/06/15 Status: Ordered Repeat number: 1 ascorbic acid 1000 mg oral tablet (20 sources) Vitamin C take 1 tablet by mouth once daily Ascorbic Acid (vitamin C) 1000 MG tablet Take 1,000 mg by mouth 1 (one) time each day at the same time Active aspirin 81 mg chewable tablet (6 sources) Platelet Aggregation Inhibitor, Nonsteroidal Anti-inflammatory Drug Start: 02-04-2024 take 1 tablet by mouth once daily Aspirin Active 1 TAB PO Daily February 04, 2024 12:00am Start: 01-16-2024 aspirin 81 mg, Chewed, Daily, Refills(s) 0 Start Date: 01/16/24 Status: Ordered End: 09-22-2024 take 1 tablet by mouth once daily aspirin 81 mg EC tablet Take 1 tablet (81 mg) by mouth once daily. 09/22/2024 Discontinued (Therapy completed) atorvastatin 80 mg oral tablet (20 sources) HMG-CoA Reductase Inhibitor Start: 01-16-2024 End: 09-22-2025 take 80 mg by mouth at bedtime atorvastatin 80 mg, Oral, Bedtime, Refills(s) 0 Start Date: 01/16/24 Status: Ordered Repeat number: 1 brompheniramine maleate 0.4 mg/ml / dextromethorphan hydrobromide 2 mg/ml / pseudoephedrine hydrochloride 6 mg/ml oral solution (3 sources) alpha-Adrenergic Agonist, Uncompetitive F-nyhhog-H-asparta te Receptor Antagonist, Sigma-1 Agonist Start: 05-18-2024 take 5 mL by mouth four times daily for cough and congestion Bromfed DM oral syrup 5 mL, Oral, QID for cough and congestion, 200 mL, Refill(s) 0, [facility]/pharmacy #[id number], 174, cm, 05/18/24 9:55:00 EST, Height/Length Dosing, 122.2, kg, 05/18/24 9:55:00 EST, Weight Dosing Start Date: 05/18/24 Status: Ordered bumetanide 1 mg oral tablet (20 sources) Loop Diuretic Start: 01-16-2024 End: 09-22-2025 take 1 tablet by mouth once daily bumetanide 1 mg Tab 1 mg = 1 tab(s), Oral, Daily, Refills(s) 0 Start Date: 03/12/24 Status: Ordered Repeat number: 1 Start: 05-12-2019 take 1 tablet by sean th twice daily bumetanide 1 mg Tab 1 mg = 1 tab(s), Oral, BID, Refills(s) 0, diuretic/water pill Start Date: 05/12/19 Status: Ordered clopidogrel 75 mg oral tablet (20 sources) [id number] Platelet Inhibitor Start: 01-16-2024 End: 02-03-2025 take 75 mg by mouth once daily clopidogrel 75 mg, Oral, Daily, Refills(s) 0 Start Date: 01/16/24 Status: Ordered Repeat number: 1 dapagliflozin 10 mg oral tablet (20 sources) Sodium-Glucose Cotransporter 2 Inhibitor Start: 01-16-2024 End: 07-02-2025 take 1 tablet by mouth once daily Farxiga 10 mg oral tablet 10 mg, Oral, Daily, # 90 tab(s), Refills(s) 1, Pharmacy: [facility]/pharmacy #[id number], 174, cm, 01/20/24 10:48:00 EDT, Height/Length Dosing, 130, kg, 01/20/24 10:48:00 EDT, Weight Dosing Start Date: 02/04/24 Status: Ordered Quantity: 90.0 Unit: tab(s) Repeat number: 2 Dulera 100 mcg-5 mcg/inh inhalation aerosol (16 sources) Start: 11-13-2024 Dulera 100 mcg-5 mcg/inh inhalation aerosol See Instructions, 13 gm, Refill(s) 11, USE 2 INHALATIONS TWICE A DAY, [facility], 175.3, cm, 09/11/24 11:46:00 EDT, Height/Length Dosing, 123, kg, 09/11/24 11:46:00 EDT, Weight Dosing Start Date: 11/13/24 Status: Ordered Quantity: 13.0 Unit: g Repeat number: 1 Start: 05-05-2024 take 2 puff(s) by in halation twice daily Dulera 100 mcg-5 mcg/inh inhalation aerosol 2 puff(s), Inhalation, BID, 13 gram, Refill(s) 0, [facility]/pharmacy #[id number], 174, cm, 05/04/24 15:26:00 EST, Height/Length Dosing, 120.6, kg, 05/04/24 15:26:00 EST, Weight Dosing Start Date: 05/05/24 Status: Ordered Start: 11-22-2023 End: 11-16-2024 take 2 puff(s) by inhalation twice daily Dulera 100 mcg-5 mcg/inh inhalation aerosol 2 puff(s), Inhalation, BID for 30 day(s), 13 gm, Refill(s) 11, [facility]/pharmacy #[id number], 175, cm, 11/22/23 10:58:00 EDT, Height/Length Dosing, 140.4, kg, 11/22/23 10:58:00 EDT, Weight Dosing Start Date: 11/22/23 Stop Date: 11/16/24 Status: Ordered esomeprazole 20 mg delayed release oral capsule (1 source) Proton Pump Inhibitor Start: 01-20-2024 esomepra zole 20 mg Cap-DR ORAL, 0 Refill(s), Take by mouth., Refills(s) 0 Start Date: 01/20/24 Status: Ordered fluticasone (1 source) Corticosteroid Start: 01-16-2024 fluticasone 50 mcg, Inhalation, PRN Allergy symptoms, Refills(s) 0 Start Date: 01/16/24 Status: Ordered Fluticasone Propion-Salmeterol (13 sources) Corticosteroid, beta2-Adrenergic Agonist Start: 02-04-2024 Fluticasone Propion-Salmeterol (Advair Hfa) 115-21 mcg/actuation HFA aerosol inhaler Active 2 INH INHALATION Twice daily February 04, 2024 12:00am take 2 puff(s) by in halation twice daily fluticasone propion-salmeteroL (Advair H FA) 115-21 mcg/actuation inhaler Inhale 2 puffs 2 times a day. Active Dulera (4 sources) Corticosteroid, beta2-Adrenergic Agonist Start: 06-26-2021 Dulera Inhalati on, BID, Refill(s) 0 Start Date: 06/26/21 Status: Ordered End: 09-22-2024 take 2 puff(s) by mouth twice daily mometasone-formoterol (Dulera) 100-5 mcg/actuation inhaler Inhale 2 puffs 2 times a day. Rinse mouth with water after use to reduce aftertaste and incidence of candidiasis. Do not swallow. 09/22/2024 Discontinued (Therapy completed) Freestyle Marshal 2 Flash Glucose Monitoring 14 Day System (Staples) (4 sources) Start: 11-29-2023 Freestyle Libr e 2 Flash Glucose Monitoring 14 Day System (Staples) Freestyle Marshal 2 Flash Glucose Monitoring 14 Day System (Staples), See Instructions, 1 EA, 0, Freestyle Marshal 2 Flash Glucose Monitoring 14 Day System (Staples), [facility] #[id number], Supply, 174.5, cm, 11/26/23 13:13:00 EDT, Height/Length Dosing, 139.5, kg, 11/26/23 13:13:00 EDT, Weight Dosing Start Date: 11/29/23 Status: Ordered freestyle marshal 2 sensors (11 sources) Start: 03-11-2024 freestyle libr e 2 sensors freestyle marshal 2 sensors, See Instructions, 12 EA, 6, check blood sugar 4 times per day, [facility] #[id number], Supply, 174, cm, 02/17/24 9:03:00 EDT, Height/Length Dosing, 129.2, kg, 02/17/24 9:03:00 EDT, Weight Dosing Start Date: 03/11/24 Status: Ordered Quantity: 12.0 Unit: EA Repeat number: 7 Indications: Type 2 diabetes mellitus without complications; Start: 03-11-2024 freestyle libr e 2 sensors freestyle marshal 2 sensors, See Instructions, 12 EA, 6, check blood sugar 4 times per day, [id number], Supply, 174, cm, 02/17/24 9:03:00 EDT, Height/Length Dosing, 129.2, kg, 02/17/24 9:03:00 EDT, Weight Dosing Start Date: 03/11/24 Status: Ordered Start: 11-29-2023 freestyle libr e 2 sensors freestyle marshal 2 sensors, See Instructions, 12 EA, 6, check blood sugar 4 times per day, [id number], Supply, 174.5, cm, 11/26/23 13:13:00 EDT, Height/Length Dosing, 139.5, kg, 11/26/23 13:13:00 EDT, Weight Dosing Start Date: 11/29/23 Status: Ordered Freestyle Marshal 2 sensors (2 sources) Start: 08-17-2024 Freestyle Libr e 2 sensors Freestyle Marshal 2 sensors, See Instructions, 6 EA, 11, check BS 4 times a day, [id number], Supply, 174, cm, 08/17/24 10:24:00 EST, Height/Length Dosing, 129.3, kg, 08/17/24 10:24:00 EST, Weight Dosing Start Date: 08/17/24 Status: Ordered Quantity: 6.0 Unit: EA Repeat number: 12 Indications: Other specified health status; Body mass index [BMI] 40.0-44.9, adult; Type 2 diabetes mellitus without complications; Freestyle Marshal 3 Flash Glucose Monitoring 14 Day System (Sensor) (7 sources) Start: 01-20-2024 Freestyle Libr e 3 Flash Glucose Monitoring 14 Day System (Sensor) Freestyle Marshal 3 Flash Glucose Monitoring 14 Day System (Sensor), See Instructions, 6 EA, 1, Freestyle Marshal 3 Flash Glucose Monitoring 14 Day System (Sensor). Replace sensor every 14 days., [id number], Supply, 174, cm, 01/20/24 10:48:00 EDT, Height/Length Dosing, 130, kg, 01/20/24 10:48:00 EDT, Weight Dosing Start Date: 01/20/24 Status: Ordered ICaps AREDS oral tablet (4 sources) Start: 11-26-2023 ICaps AREDS or al tablet 1 tab(s), Oral, Daily, 30 tab(s), Refill(s) 0 Start Date: 11/26/23 Status: Ordered LORazepam 1 mg oral tablet (20 sources) Benzodiazepine Start: 03-16-2024 take 1 tablet by mouth once LORazepam (Ativan) 1 MG tablet Indications: Memory impairment Take 1 tablet (1 mg) by mouth 1 time for 1 dose 1 tablet 03/16/2024 Active magnesium oxide 500 mg oral tablet (20 sources) Start: 04-26-2015 take 500 mg by mouth once daily magnesium oxide 500 mg, Oral, Daily, takes at supper time, Refills(s) 0, Prophylaxis Start Date: 04/26/15 Status: Ordered Repeat number: 1 metFORMIN hydrochloride 500 mg oral tablet (20 sources) Biguanide Start: 03-09-2025 take 1 tablet by mouth twice daily MetFORMIN (Eqv-Glucophage XR) 500 mg oral tablet, extended release 500 mg = 1 tab(s), Oral, BID, # 180 tab(s), Refills(s) 4, Pharmacy: [id number], 175.3, cm, 02/15/25 10:10:00 EDT, Height/Length Dosing, 131.4, kg, 02/15/25 10:10:00 EDT, Weight Dosing Start Date: 03/09/25 Status: Ordered Quantity: 180.0 Unit: tab(s) Repeat number: 5 Start: 02-04-2024 take 500 mg by mouth once neil y Metformin Active 500 MG PO Daily February 04, 2024 12:00am Start: 03-31-2019 take 1 tablet by twice daily MetFORMIN (Eqv-Glucophage XR) 500 mg oral tablet, extended release See Instructions, TAKE 1 TABLET BY MOUTH TWICE A DAY FOR 90 DAYS, # 180 tab(s), Refills(s) 1, Pharmacy: [id number], 175.3, cm, 09/11/24 11:46:00 EDT, Height/Length Dosing, 123, kg, 09/11/24 11:46:00 EDT, Weight Dosing Start Date: 09/22/24 Status: Ordered Quantity: 180.0 Unit: tab(s) Repeat number: 2 metFORMIN (Gluco phage) 500 mg tablet Take by mouth every 12 hours. Active 24 hr metoprolol succinate 25 mg extended release oral tablet (20 sources) beta-Adrenergic Tolu Start: 02-04-2024 End: 09-22-2025 take 1 tablet by mouth once daily before mealtime metoprolol succinate XL (Toprol-XL) 25 mg 24 hr tablet Indications: Essential hypertension Take 1 tablet (25 mg) by mouth once daily in the morning. Take before meals. 90 tablet 3 09/22/2024 09/22/2025 Active Start: 08-19-2023 take 25 mg by mouth once daily Toprol-XL 25 mg, Oral, Daily, Refills(s) 0 Start Date: 01/16/24 Status: Ordered Repeat number: 1 Start: 12-13-2021 take 1 tablet by sean th in the morning metoprolol tartrate (Lopressor) 100 MG tablet Take 100 mg by mouth in the morning and 100 mg before bedtime. 08/19/2023 Active Start: 05-12-2019 take 1 tablet by sean th twice daily Metoprolol tartrate 50 mg Tab 50 mg = 1 tab(s), Oral, BID, Refills(s) 0, High blood pressure Start Date: 05/12/19 Status: Ordered Milk of Magnesia (1 source) Start: 01-16-2024 Milk of Magnes ia 1,200 mg, Oral, PRN as needed for constipation, Refills(s) 0 Start Date: 01/16/24 Status: Ordered 24 hr mirabegron 50 mg extended release oral tablet (3 sources) beta3-Adrenergi c Agonist Start: 10-13-2024 End: 10-08-2025 take 1 tablet by mouth once daily mirabegron 50 mg oral tablet, extended release 50 mg = 1 tab(s), Oral, Daily, X 90 day(s), # 90 tab(s), Refills(s) 3, SHAUNA, Pharmacy: [facility], 175.3, cm, 09/11/24 11:46:00 EDT, Height/Length Dosing, 123, kg, 09/11/24 11:46:00 EDT, Weight Dosing Start Date: 10/13/24 Stop Date: 10/08/25 Status: Ordered Quantity: 90.0 Unit: tab(s) Repeat number: 4 Start: 09-11-2024 mirabegron (My rbetriq) 50 mg tablet extended release 24 hr 24 hr tablet 1 tablet (50 mg) once daily. 09/11/2024 Active Nasal Mist (1 source) Start: 01-16-2024 Nasal Mist 2 s pray(s), Nasal, Allergy symptoms, Refill(s) 0 Start Date: 01/16/24 Status: Ordered nitroglycerin 0.4 mg sublingual tablet (20 sources) Nitrate Vasodilator Start: 02-04-2024 Nitroglyce rin Active 0.4 MG SUBLINGUAL Q5M February 04, 2024 12:00am Start: 01-16-2024 nitroglycerin 0.4 mg, SubLingual, q5min, PRN Chest pain, X 3 dose(s), Refills(s) 0 Start Date: 01/16/24 Status: Ordered Repeat number: 1 potassium chloride 10 meq extended release oral tablet (20 sources) Start: 07-03-2024 End: 07-03-2025 take 1 tablet by mouth once daily potassium chloride CR 10 mEq ER tablet Indications: Ischemic cardiomyopathy , Essential hypertension Take 1 tablet (10 mEq) by mouth once daily. Do not crush, chew, or split. 90 tablet 3 07/03/2024 07/03/2025 Active Start: 02-04-2024 take 10 mEq by mouth twice quoc ly Potassium Chloride Active 10 MEQ PO Twice daily February 04, 2024 12:00am Start: 01-16-2024 potassium chlo ride 10 mEq, Oral, Daily, Refills(s) 0 Start Date: 01/16/24 Status: Ordered Repeat number: 1 Start: 01-16-2024 potassium chlo ride 10 mEq, Oral, Daily, Refills(s) 0 Start Date: 01/16/24 Status: Ordered Start: 01-16-2024 potassium chlo ride 10 mEq, Oral, Every other day, Refills(s) 0 Start Date: 01/16/24 Status: Ordered take 1 capsule by mo ut in the morning potassium chloride ER (Micro-K) 10 MEQ ER capsule Take 10 mEq by mouth in the morning and 10 mEq before bedtime. Do not crush or chew.. Active take 1 tablet by mouth once neil y potassium chloride CR 10 mEq ER tablet Take 1 tablet (10 mEq) by mouth once daily. Do not crush, chew, or split. Active PreserVision AREDS 2 (7 sources) Start: 03-12-2024 PreserVision A REDS 2 Chewed, BID, Refill(s) 0 Start Date: 03/12/24 Status: Ordered Repeat number: 1 Start: 03-12-2024 PreserVision A REDS 2 Chewed, BID, Refill(s) 0 Start Date: 03/12/24 Status: Ordered Refresh (7 sources) Start: 01-16-2024 Refresh 1 drop(s), Eye-Both, Dry eyes, Refill(s) 0 Start Date: 01/16/24 Status: Ordered Senna Leaves (6 sources) Start: 06-04-2019 Senna Oral, Once a day (at bedtime), Refill(s) 0 Start Date: 06/04/19 Status: Ordered sennosides, residential 8.6 mg oral tablet (20 sources) Start: 01-16-2024 take 8.6 mg by mouth twice daily as needed for constipation senna 8.6 mg, Oral, BID, PRN as needed for constipation, Refills(s) 0 Start Date: 01/16/24 Status: Ordered spironolactone 25 mg oral tablet (20 sources) Aldosterone Antagonist Start: 09-22-2024 take 1 tablet by mouth once daily spironolactone (Aldactone) 25 mg tablet Indications: Essential (primary) hypertension Take 1 tablet (25 mg) by mouth once daily. 90 tablet 3 09/22/2024 Active Start: 06-27-2020 End: 09-22-2024 take 1 tablet by mouth once daily spironolactone 25 mg Tab 25 mg = 1 tab(s), Oral, Daily, Refills(s) 0 Start Date: 06/27/20 Status: Ordered Repeat number: 1 Start: 06-27-2020 take 1 mg by mouth twice daily spironolactone 25 mg Tab mg tab(s), Oral, BID, Refills(s) 0 Start Date: 06/27/20 Status: Ordered 24 hr tolterodine tartrate 4 mg extended release oral capsule (20 sources) Cholinergic Muscarinic Antagonist Start: 08-14-2022 End: 09-22-2024 take 1 capsule by mouth once daily tolterodine 4 mg Cap-ER 4 mg = 1 cap(s), Oral, Daily, # 90 cap(s), Refills(s) 3, Pharmacy: [facility]/pharmacy #[id number], 174, cm, 05/18/24 9:55:00 EST, Height/Length Dosing, 122.2, kg, 05/18/24 9:55:00 EST, Weight Dosing Start Date: 05/26/24 Status: Ordered torsemide 10 mg oral tablet (20 sources) Loop Diuretic Start: 01-16-2024 take 10 mg by mouth once daily torsemide 10 mg, Oral, Daily, Refills(s) 0 Start Date: 01/16/24 Status: Ordered Start: 11-22-2023 take 1 tablet by sean th once daily torsemide 20 mg Tab 20 mg = 1 tab(s), Oral, Daily, # 30 tab(s), Refills(s) 0 Start Date: 11/22/23 Status: Ordered Start: 11-07-2023 End: 11-06-2024 take 0.5 tablet by mouth once daily torsemide (Demadex) 20 mg tablet Indications: Localized edema Take 0.5 tablets (10 mg) by mouth once daily. 45 tablet 3 11/07/2023 11/06/2024 Active Start: 11-30-2021 take 0.5 tablet by m outh once daily torsemide (Demadex) 20 mg tablet Take 0.5 tablets (10 mg) by mouth once daily. 0 11/30/2021 Active take 10 mg by mouth once daily t orsemide (Demadex) 20 MG tablet Take 10 mg by mouth Daily Active Tussin DM Sugar Free (1 source) Start: 01-16-2024 Tussin DM Suga r Free 10 mL, Congestion, Refill(s) 0 Start Date: 01/16/24 Status: Ordered valsartan 40 mg oral tablet (20 sources) Angiotensin 2 Receptor Tolu Start: 01-16-2024 End: 09-22-2025 take 40 mg by mouth once daily valsartan 40 mg, Oral, Daily, Refills(s) 0 Start Date: 01/16/24 Status: Ordered Repeat number: 1 Ventolin HFA 90 mcg/inh Aerosol (4 sources) Start: 05-12-2019 take 2 puff(s) by inhalation four times daily Ventolin HFA 90 mcg/inh Aerosol 2 puff(s), Inhalation, QID Shortness of breath or wheezing, Refill(s) 0, COPD Start Date: 05/12/19 Status: Ordered Vit C,W-Cj-Iwuxf-Lut ein-Zeaxan (Preservision Areds-2) 250-90-40-1 mg capsule (2 sources) Start: 02-04-2024 Vit C,F-Cw-Lgoqw-Lute in-Zeaxan (Preservision Areds-2) 250-90-40-1 mg capsule Active 1 TAB PO Twice daily February 04, 2024 12:00am vit C/E/Zn/coppr/lut ein/zeaxan (PRESERVISION AREDS-2 ORAL) (2 sources) vit C/E/Zn/coppr/lute in/zeaxan (PRESERVISION AREDS-2 ORAL) Take by mouth. Active vitamin B12 (10 sources) Vitamin B12 Start: 01-16-2024 take 1000 ug by mouth once daily Vitamin B12 1,000 mcg, Oral, Daily, Refills(s) 0 Start Date: 01/16/24 Status: Ordered Repeat number: 1 Start: 01-16-2024 take 1000 ug by mout h once daily Vitamin B12 1,000 mcg, Oral, Daily, Refills(s) 0 Start Date: 01/16/24 Status: Ordered Start: 01-16-2024 take 100 ug by mouth once daily Vitamin B12 100 mcg, Oral, Daily, Refills(s) 0 Start Date: 01/16/24 Status: Ordered take 1 tablet by sean th once daily cyanocobalamin (Vitamin B-12) 1,000 mcg tablet Take 1 tablet (1,000 mcg) by mouth once daily. Active Vitamin C 500 mg Tab (15 sources) Start: 05-12-2015 take 1 tablet by mouth once daily Vitamin C 500 mg Tab 500 mg = 1 tab(s), Oral, Daily, Refills(s) 0, Prophylaxis Start Date: 05/12/15 Status: Ordered Repeat number: 1 Start: 05-12-2015 take 1 tablet by sean th once daily Vitamin C 500 mg Tab 500 mg = 1 tab(s), Oral, Daily, Refills(s) 0, Prophylaxis Start Date: 05/12/15 Status: Ordered Start: 05-12-[address] [facility] once daily Vitamin C 500 mg Tab 1,000 mg = 2 tab(s), Oral, Daily, Refills(s) 0, Prophylaxis Start Date: 05/12/15 Status: Ordered Completed/Discontinued Medications Medication Drug Class(es) Dates Sig (Normalized) Sig (Original) Albuterol (Eqv-ProAir HFA) 90 mcg/inh inhalation aerosol (4 sources) Start: 05-15-2024 take 8.5 g by inhalation every six hours Albuterol (Eqv-ProAir HFA) 90 mcg/inh inhalation aerosol 180 mcg, 2 inh, Inhalation, q6hr, 8.5 gm, Refill(s) 0, [id number], 174, cm, 05/14/24 14:26:00 EST, Height/Length Dosing, 121.9, kg, 05/14/24 14:26:00 EST, Weight Dosing Start Date: 05/15/24 Status: Ordered Quantity: 8.5 Unit: g Repeat number: 1 Indications: Type 2 diabetes mellitus without complications; Start: 05-15-2024 take 8.5 g by inhala tion every six hours Albuterol (Eqv-ProAir HFA) 90 mcg/inh inhalation aerosol 180 mcg, 2 inh, Inhalation, q6hr, 8.5 gm, Refill(s) 0, [id number], 174, cm, 05/14/24 14:26:00 EST, Height/Length Dosing, 121.9, kg, 05/14/24 14:26:00 EST, Weight Dosing Start Date: 05/15/24 Status: Ordered Freestyle Marshal 3 sensors (7 sources) Start: 01-20-2024 Freestyle Libr e 3 sensors Freestyle Marshal 3 sensors, See Instructions, 12 EA, 1, change as needed, [id number], Supply, 174, cm, 01/20/24 10:48:00 EDT, Height/Length Dosing, 130, kg, 01/20/24 10:48:00 EDT, Weight Dosing Start Date: 01/20/24 Status: Ordered Magnesium (7 sources) Magnesium 500 MG TABS Take 1 tablet daily Quantity: 0 Refills: 0 Ordered: 03-Jan-2022 DO Active PreserVision AREDS 2 CAPS (7 sources) PreserVision ARE DS 2 CAPS Take 1 capsule twice daily Quantity: 0 Refills: 0 Ordered: 03-Jan-2022 DO Active twin sized firm extra long mattress for hospital bed (2 sources) Start: 05-28-2024 twin sized fir m extra long mattress for hospital bed twin sized firm extra long mattress for hospital bed, See Instructions, 1 EA, 0, twins sized, firm extra long mattress for hospital bed, Supply Start Date: 05/28/24 Status: Ordered Problems Active Problems Problem Classification Problem Date Documented Date Episodic/Chronic Acute myocardial infarction (11 sources) Non-ST elevation (NSTEMI) myocardial infarction; Translations: [Myocardial infarction] Onset: 01-12-2024 Chronic Administrative/social admission (7 sources) Persons encountering health services in other specified circumstances; Translations: [Counseling procedure with explicit context] Onset: 01-12-2024 Episodic Asthma (13 sources) Asthma; Translations: [Asthma, unspecified type, unspecified] Onset: 09-05-2023 09-05-2023 Chronic Biliary tract disease (15 sources) Common bile duct calculus 05-12-2019 Episodic Cardiac dysrhythmias (20 sources) Unspecified atrial fibrillation; Translations: [Permanent atrial fibrillation] Onset: 10-04-2017 04-05-2019 Chronic Chronic obstructive pulmonary disease and bronchiectasis (7 sources) Chronic obstructive lung disease; Translations: [Chronic obstructive pulmonary disease, unspecified] Onset: 11-22-2023 Chronic Congestive heart failure; nonhypertensive (3 sources) Heart failure; Translations: [Heart failure, unspecified] Onset: 11-22-2023 Chronic Coronary atherosclerosis and other heart disease (20 sources) Chronic ischemic heart disease, unspecified; Translations: [Coronary arteriosclerosis] Onset: 01-12-2024 Chronic Coronary atherosclerosis and other heart disease (3 sources) Presence of coronary angioplasty implant and graft; Translations: [Presence of coronary angioplasty implant and graft] Onset: 01-12-2024 Episodic Deficiency and other anemia (2 sources) Anemia in other chronic diseases classified elsewhere; Translations: [Anemia in other chronic diseases classified elsewhere] Onset: 01-12-2024 Chronic Developmental disorders (20 sources) Developmental disorder; 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] Onset: 10-15-2023 10-15-2023 Chronic Diabetes mellitus with complications (4 sources) Type 2 diabetes mellitus; Translations: [Type 2 diabetes mellitus with other diabetic neurological complication] 03-09-2024 Chronic Diabetes mellitus with complications (1 source) Type 2 diabetes mellitus with diabetic neuropathy, unspecified; Translations: [TYPE 2 DM W/DIABETIC NEUROPATHY UNS] Onset: 10-11-2017 Diabetes mellitus without complication (20 sources) Type 2 diabetes mellitus without complications; Translations: [Diabetes mellitus] Onset: 08-09-2017 04-05-2019 Chronic Disorders of lipid metabolism (9 sources) Hyperlipidemia; Translations: [Hyperlipidemia, unspecified] Onset: 01-22-2024 02-04-2024 Chronic Esophageal disorders (16 sources) Gastroesophageal reflux disease; Translations: [Gastroesophageal reflux disease without esophagitis] Onset: 05-28-2024 04-01-2019 Chronic Essential hypertension (20 sources) Essential (primary) hypertension; Translations: [Benign essential hypertension] Onset: 10-11-2017 Resolved: 12-24-2023 03-31-2019 Chronic Genitourinary symptoms and ill-defined conditions (13 sources) Urge incontinence of urine 06-27-2020 Chronic Genitourinary symptoms and ill-defined conditions (20 sources) Nocturia; Translations: [Nocturia] Onset: 08-27-2022 Episodic Hyperplasia of prostate (18 sources) Benign prostatic hypertrophy with outflow obstruction; Translations: [Benign prostatic hyperplasia with lower urinary tract symptoms] Onset: 08-27-2022 Chronic Malaise and fatigue (4 sources) Asthenia 06-04-2024 Episodic Miscellaneous mental health disorders (9 sources) Personality change 01-20-2024 Chronic Mood disorders (15 sources) Depressive disorder 04-01-2019 Chronic Mycoses (20 sources) Onychomycosis; Translations: [Tinea unguium] Onset: 10-03-2023 04-01-2024 Episodic Osteoarthritis (20 sources) Osteoarthritis 01-31-2015 Chronic Comment on above: rght knee left hip Other aftercare (8 sources) Long-term current use of 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; Translations: [watermaster (current) use of 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s] Onset: 09-23-2023 09-23-2023 Episodic Other aftercare (1 source) Long-term current use of oral hypoglycemic medication; Translations: [watermaster (current) use of oral hypoglycemic drugs] Episodic Other connective tissue disease (6 sources) Pain of toe of right foot; Translations: [Pain in right toe(s)] 04-01-2024 Episodic Other connective tissue disease (6 sources) Pain of toe of left foot; Translations: [Pain in left toe(s)] 04-01-2024 Episodic Other diseases of bladder and urethra (2 sources) Overactive bladder 09-11-2024 Chronic Other diseases of bladder and urethra (1 source) Detrusor overactivity; Translations: [Overactive bladder] Onset: 03-24-2025 Chronic Other diseases of veins and lymphatics (20 sources) Venous insufficiency of leg; Translations: [Venous insufficiency (chronic) (peripheral)] Onset: 10-03-2023 10-03-2023 Episodic Other lower respiratory disease (1 source) Disorder of lung; Translations: [Other disorders of lung] Onset: 01-08-2024 Episodic Other lower respiratory disease (15 sources) Dyspnea; Translations: [Shortness of breath] Onset: 12-24-2023 02-17-2024 Episodic Other lower respiratory disease (5 sources) Cough 05-04-2024 Episodic Other lower respiratory disease (5 sources) Wheezing 05-04-2024 Episodic Other nervous system disorders (8 sources) Disturbance of attention; Translations: [Attention and concentration deficit] 04-09-2024 Chronic Other nutritional; endocrine; and metabolic disorders (20 sources) Body mass index 40+ - severely obese; Translations: [Body Mass Index 45.0-49.9, adult] Onset: 09-23-2023 05-28-2019 Chronic Other nutritional; endocrine; and metabolic disorders (16 sources) Morbid obesity; Translations: [Morbid obesity] 05-28-2019 Chronic Other nutritional; endocrine; and metabolic disorders (20 sources) Severe obesity; Translations: [Class 3 severe obesity due to excess calories with serious comorbidity and body mass index (BMI) of 45.0 to 49.9 in adult] Onset: 10-03-2023 10-03-2023 Chronic Other nutritional; endocrine; and metabolic disorders (2 sources) Body mass index (BMI) 40.0-44.9, adult; Translations: [Body mass index (BMI) 40.0-44.9, adult (Multi)] Onset: 01-22-2024 Chronic Other nutritional; endocrine; and metabolic disorders (2 sources) Body mass index (BMI) 45.0-49.9, adult; Translations: [Body mass index (BMI) 45.0-49.9, adult (Multi)] Onset: 09-23-2023 Chronic Other screening for suspected conditions (not mental disorders or infectious disease) (1 source) Encounter for screening for malignant neoplasm of prostate; Translations: [Screening for malignant neoplasm done] Onset: 03-24-2025 Episodic Other skin disorders (15 sources) Impaired skin integrity 08-08-2016 Episodic Comment on above: Problem added on doc umentation of skin impairments. Residual codes; unclassified (20 sources) Obstructive sleep apnea syndrome; Translations: [Obstructive sleep apnea (adult) (pediatric)] Onset: 10-03-2023 10-03-2023 Chronic Residual codes; unclassified (6 sources) Insomnia; Translations: [Other insomnia] 04-09-2024 Chronic Residual codes; unclassified (17 sources) Edema of lower extremity; Translations: [Edema] Onset: 09-05-2023 09-23-2023 Episodic Residual codes; unclassified (3 sources) Family history of cancer; Translations: [Family history of malignant neoplasm of prostate] Onset: 08-27-2022 Episodic Residual codes; unclassified (15 sources) Body fluid retention 03-31-2019 Episodic Residual codes; unclassified (15 sources) Family history of prostate cancer 05-28-2019 Episodic Residual codes; unclassified (2 sources) Edema, unspecified; Translations: [Edema, unspecified] Onset: 01-12-2024 Episodic Residual codes; unclassified (9 sources) Forgetful 01-20-2024 Episodic Residual codes; unclassified (10 sources) Memory impairment; Translations: [Other amnesia] 04-09-2024 Episodic Residual codes; unclassified (1 source) Other amnesia; Translations: [Other amnesia] Onset: 04-07-2024 Episodic Residual codes; unclassified (4 sources) Never smoked tobacco; Translations: [Other specified health status] Onset: 03-10-2024 03-10-2024 Episodic Retinal detachments; defects; vascular occlusion; and retinopathy (20 sources) Degenerative disorder of macula ; Translations: [Unspecified macular degeneration] Onset: 10-03-2023 10-03-2023 Chronic Unclassified (15 sources) Drug therapy finding 05-28-2019 Unclassified (13 sources) Patient encounter status 11-26-2023 Unclassified (2 sources) Permanent atrial fibrillation; Translations: [Permanent atrial fibrillation (Multi)] Onset: 09-05-2023 Past or Other Problems Problem Classification Problem Date Documented Da te Episodic/Chronic Other aftercare (2 sources) custodial (current) use of 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s; Translations: [watermaster (current) use of 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s] Onset: 09-23-2023 Episodic Other lower respiratory disease (4 sources) Shortness of breath; Translations: [Shortness of breath] Onset: 12-24-2023 Episodic Residual codes; unclassified (20 sources) Edema of foot; Translations: [Localized edema] Onset: 10-03-2023 10-03-2023 Episodic Residual codes; unclassified (2 sources) Other specified health status; Translations: [Other specified health status] Onset: 03-10-2024 Episodic Residual codes; unclassified (2 sources) Localized edema; Translations: [Localized edema] Onset: 09-05-2023 Episodic Unclassified (7 sources) Never smoked tobacco; Translations: [Never a smoker] Unclassified (4 sources) Onset: 09-23-2023 Resolved: 09-22-2024 09-23-2023 Results Test Name Value Interpretation Reference Range Facility Urology Office/Clinic Noteon 03-25-2025 Urology Office/Clinic Note Urology Office/Clinic Note Chief Complaint 6 month f/u HPI Staff Pt is a 69 year old male here for 6 month follow up Previous Dx: BPH with urinary obstruction, nocturia, family history of prostate cancer *mirabegron 50 mg qhs yes he is taking PSA: 05/31/20 - 0.31 06/06/21 - 0.19 & 26.3% 08/21/22 - 0.38 07/25/23 - 0.35 History of Present Illness I have reviewed and verified the staff HPI to be accurate for this encounter. Portions of this record may have been created with voice recognition artificial intelligence software, specifically [employer], [employer] and or [employer]. Substitutions may have occurred due to the inherent limitations of voice recognition and artificial intelligence software. Review of Systems PHQ Score Initial Depression Screen Score: 0 SCORE Physical Exam Vitals & Measurements BP: 120/58 HT: 69 in HT: 175 cm WT: 133.5 kg WT: 294.317 lb BMI: 43.59 General: Well developed, well nourished, in no acute distress. Assessment/Plan PRW pt 1. OAB (overactive bladder) (N32.81: Overactive bladder) No specimen for UA today PVR 22 ml Previously on tolterodine 4 mg ER qd, which was not effective for pt. At prior OV, was switched to Myrbetriq 50 mg qd. He is tolerating this w/o SEs. He is very happy w/ his sx control on this medication. Does not wish to make any changes at this time. -cont Myrbetriq -f/u 6 mos w/ PSA Ordered: E&M of Est. Patient Moderate 30-39 Min 14063 2. Screening PSA (prostate specific antigen) (Z12.5: Encounter for screening for malignant neoplasm of prostate) PSA: 05/31/20 - 0.31 06/06/21 - 0.19 & 26.3% 08/21/22 - 0.38 07/25/23 - 0.35 09/11/24 - 0.30 PSA low and stable, discussed results w/ pt. -PSA due 6 mos, f/u to review Ordered: E&M of Est. Patient Moderate 30-39 Min 29038 PSA Screen, Total 3. BPH with urinary obstruction (N40.1: Benign prostatic hyperplasia with lower urinary tract symptoms) S/p TURP 12/15/15 IPSS 3, QoL 1 Not taking any prostate meds at this time, not indicated based on sx control and emptying. -cont to monitor Ordered: E&M of Est. Patient Moderate 30-39 Min 85383 4. Family history of prostate cancer (Z80.42: Family history of malignant neoplasm of prostate) Brother. Diagnosed in his 60s Ordered: E&M of Est. Patient Moderate 30-39 Min 49477 Follow-up With When Contact Information [employer], GROUP UNDERWRITER-C, Ruth X, FAM, URL Additional Instructions: 6 mos psa Patient Education Cancer Screening for Males Overactive Bladder, Adult Benign Prostatic Hyperplasia Problem List/Past Medical History Ongoing Anticoagulated Atrial fibrillation BMI 40.0-44.9, adult BPH with urinary obstruction Chronic GERD COPD type A Cough Depression Establishing care with new doctor, encounter for Family history of prostate cancer Fluid retention Forgetfulness Hypertension Limited mobility Morbid obesity with BMI of 40.0-44.9, adult Nocturia OAB (overactive bladder) 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 Screening PSA (prostate specific antigen) Shortness of breath Type 2 diabetes mellitus Weakness Wheezing Historical BMI 45.0-49.9, adult Non-ST elevated myocardial infarction (non-STEMI) Procedure/Surgical History Colonoscopy (05/13/2019), Laparoscopic cholecystectomy (04/03/2019), TURP - Transurethral resection of prostate (12/15/2015), Urodynamics (11/02/2015), Total hip replacement (09/08/2015), left total knee arhroplasty (05/10/2015), right total knee arthroplasty (02/22/2015), Cataract, Endoscopic retrograde cholangiopancreatography (ERCP) not completed due to anatomical derangements from previous surgery, Placement of stent in cardiac conduit, Rotator cuff repair, Tonsillectomy. Medications Albuterol (Eqv-Ventolin HFA) 90 mcg/inh inhalation aerosol, See Instructions, 1 refills atorvastatin, 80 mg, Oral, Bedtime bumetanide 1 mg Tab, 1 mg= 1 tab(s), Oral, Daily clopidogrel, 75 mg, Oral, Daily Dulera 100 mcg-5 mcg/inh inhalation aerosol, See Instructions Eliquis, 5 mg, Oral, BID Farxiga 10 mg oral tablet, 10 mg, Oral, Daily, 1 refills Freestyle Marshal 2 sensors, See Instructions, 11 refills freestyle marshal 2 sensors, See Instructions, 6 refills magnesium oxide, 500 mg, Oral, Daily MetFORMIN (Eqv-Glucophage XR) 500 mg oral tablet, extended release, 500 mg= 1 tab(s), Oral, BID, 4 refills mirabegron 50 mg oral tablet, extended release, 50 mg= 1 tab(s), Oral, Daily, 3 refills nitroglycerin, 0.4 mg, SubLingual, q5min, PRN potassium chloride, 10 mEq, Oral, Daily PreserVision AREDS 2, Chewed, BID spironolactone 25 mg Tab, 25 mg= 1 tab(s), Oral, Daily Toprol-XL, 25 mg, Oral, Daily valsartan, 40 mg, Oral, Daily Vitamin B12, 1000 mcg, Oral, Daily Vitamin C 500 mg Tab, 500 mg= 1 tab(s), Oral, Daily Allergies No Known Allergies Social History Alcohol - Denies Alcohol Use, 01/31/2015 Never, 03/22/2025 Substance Abuse - Denies Substance (more content not included)... Normal [facility] Comment on above: Result Comment: Elec tronically Signed By: WILLIAM Christiansen APRN, Ruth Moore\.br\Date and Time Signed: 03/25/25 11:15 EDT Ambulatory Visit Summaryon 0 03-22-2025 Ambulatory Visit Summary Ambulatory Visit Summary HUANG ROBLES :1955 Visit Date:03/22/2025 Ambulatory Visit Instructions Your Diagnosis Encounter for subsequent annual wellness visit (AWV) in Medicare patient Hypertension Type 2 diabetes mellitus Depression BMI 40.0-44.9, adult, Body mass index [BMI] 40.0-44.9, adult Obesity due to excess calories Morbid obesity with BMI of 40.0-44.9, adult OAB (overactive bladder) These Are Your Goals Maintain thereapeutic BP an prevent complications - Not met Interventions: Keep appointments as scheduled - Progressing Learn best practice for home moniotring of BP - Not done Learn the importance of medication compliance - Progressing Review educational material - Done Take Medications as Prescribed - Progressing Prevent complications of diabetes - Not met Interventions: Learn to identify signs and symptoms of hyper/hypoglycemia - Not done Monitor BS/ glucose levels as directed per PCP - Progressing Perform daily foot care; foot checks, lotion, proper fitting socks and shoes - Progressing Review educational material - Done Take medications as prescribed - Progressing Follow through with regular assessments to evaluate cognative function and prevent complications - Not met Interventions: Complete Annual Medicare Wellness Visit - Progressing Referral to Dr. Moulton 04/08, complete MRI prior on 04/07/24 Referral to Neurology- Dr. Padgett 03/09/24 - Done Practice good medication compliance and medication safety - Not met Interventions: Consult with pharmacy as needed - Not done Explore options such as: syncing medication refills, pill packs, combination pills when applicable - Progressing Notify PCP and/or other providers immediatley of medication changes - Not done Paramedicine to help with weekly medication set up - Done Set medication-taking reminders - Not done Your Care Team Attending Physician - Paty Guevara Primary Care Physician - Paty Guevara This Is Your Medications List Misc Prescription (Freestyle Marshal 2 sensors) Misc Prescription (freestyle marshal 2 sensors) albuterol (Albuterol (Eqv-Ventolin HFA) 90 mcg/inh inhalation aerosol) apixaban (Eliquis) ascorbic acid (Vitamin C 500 mg Tab) atorvastatin bumetanide (bumetanide 1 mg Tab) clopidogrel cyanocobalamin (Vitamin B12) dapagliflozin (Farxiga 10 mg oral tablet) formoterol-mometasone (Dulera 100 mcg-5 mcg/inh inhalation aerosol) magnesium oxide metformin (MetFORMIN (Eqv-Glucophage XR) 500 mg oral tablet, extended release) metoprolol (Toprol-XL) mirabegron (mirabegron 50 mg oral tablet, extended release) multivitamin with minerals (PreserVision AREDS 2) nitroglycerin potassium chloride spironolactone (spironolactone 25 mg Tab) valsartan Procedures Performed Colonoscopy (05/13/2019), Laparoscopic cholecystectomy (04/03/2019), TURP - Transurethral resection of prostate (12/15/2015), Urodynamics (11/02/2015), Total hip replacement (09/08/2015), left total knee arhroplasty (05/10/2015), right total knee arthroplasty (02/22/2015), Cataract, Endoscopic retrograde cholangiopancreatography (ERCP) not completed due to anatomical derangements from previous surgery, Placement of stent in cardiac conduit, Rotator cuff repair, Tonsillectomy. Discharge Vitals Heart Rate (Peripheral) 68 Blood Pressure 134/64 Height 175.3 cm Height 69 in Weight 130.67 kg Weight 288.078 lb BMI 42.52 What to do next Scheduled Follow-Up Appointments 2024 10:20 AM EDT With: WILLIAM Christiansen APRN, Ruth Moore Where: [facility] [address] [address]- Saturday 9:20 AM EST With: Where: [address] [id number]- Saturday 10:40 AM EST With: Paty Guevara Where: [address] [id number]- [id number] 9:30 AM EDT With: Where: [address] [id number]- You Need to Complete the Following Comprehensive Metabolic Panel, Blood, Routine collect, 03/22/25, Order for future visit, Lab Collect, Hypertension, Print Label By Order Location HgbA1c, Blood, Routine collect, 03/22/25, Order for future visit, Lab Collect, Type 2 diabetes mellitus, Print Label By Order Location Lipid Panel, Blood, Routine collect, 03/22/25, Order for future visit, Lab Collect, Type 2 diabetes mellitus, Print Label By Order Location Urine Microalbumin/Creatinine Ratio, Urine, Routine collect, 03/22/25, Order for future visit, Nurse collect, Type 2 diabetes mellitus, Print Label By Order Location Medications What How Much When Why Instructions Unchanged albuterol (Albuterol (Eqv-Ventol (more content not included)... Normal [facility] Family Medicine Office/Clini c Noteon 03-22-2025 Family Medicine Office/Clinic Note Family Medicine Office/Clinic Note Chief Complaint Subsequent Medicare Wellness Review of Systems PHQ Score Initial Depression Screen Score: 0 SCORE Physical Exam Vitals & Measurements HR: 68(Peripheral) BP: 134/64 SpO2: 94% HT: 69 in HT: 175.3 cm WT: 288.078 lb WT: 130.67 kg BMI: 42.52 Assessment/Plan 1. Encounter for subsequent annual wellness visit (AWV) in Medicare patient (Z00.00: Encounter for general adult medical examination without abnormal findings) The patient was given a customized and personalized print out of all the current AHRQ USPSTF???s recommendations for preventative services and all current CDC recommended immunizations, relevant risk recommendations and the following patient brochures were given. Reviewed Medicare Prevention Services checklist. CDC-Falls Prevention and home safety screening reviewed. Patient denies any falls in last 12 months, voices no worry about falling. Exhibits no problems with sitting, standing or ambulation. Patient aware with keeping walk way area free of clutter to prevent tripping and/or falling. [place] Advance Directives reviewed. Documents remain at home, encouraged to bring in for scanning into chart. Patient denies any problems with ADL???s and Instrumental ADL???s. Cognitive screening completed with memory and clock face drawing. No deficits noted. Immunization record reviewed, discussed Shingrix vaccine with educational handout and availability. 2 COVID vaccines have been administered, with (2) Boosters received. Allergies and medications reviewed and up to date. No concerns with taking medication as prescribed. Reviewed OTC medications, medication list up to date. Blood tests were reviewed: Discussed what tests need to be updated. Labs were ordered, will have completed prior to next PCP visit. Labs to be completed with [facility]. No concerns with bowel/ bladder. Colonoscopy last completed 05/13/[address] Brito, due for repeat (10 years). Reviewed pain symptoms: rates pain as a (0) out of 10. Reviewed all outside providers that patient follows. Last visit summary notes available in chart and/or have been requested. Follow up scheduled with PCP, 05/17/2025 AWV has been scheduled, 03/28/2026 Medicare provides yearly screening for alcohol and depression concerns. This is completed during our Medicare Wellness Visit for those who do not have a current diagnosis of depression or concerns with alcohol use. I spent a total of 12 minutes on this date of service which included preparing to see the patient, face to face patient care, completing clinical documentation, obtaining and/or reviewing separately obtained history, counseling, and educating the patient with handouts. Explanations were provided with reviewing questionnaires. AUDIT risk assessment screening completed, risk score (0) with patient denying concerns with use. Completed PHQ-2 risk assessment for depression with risk score (0), negative findings. Patient has been reminded to notify the provider if there would be a change or concerns with symptoms with fear, unable to sleep, worrying too much, or feeling down and/or sad with lost of interest with daily activities. Will continue to monitor with screening yearly during Medicare Wellness Visits. 2. Hypertension (I10: Essential (primary) hypertension) Patient is taking medications daily as directed. Does not monitor BP pressure at home. HTN stoplight reviewed with BP goal to be <140/90. Reviewed different factors that can alter blood pressure readings. Education handout provided with s/s to monitor for and report to provider. Patient is encouraged to increase portions of fruit, vegetables, fiber and increase exercise as much as tolerable. Reviewed importance with monitoring foods high in salt content and encouraged to limit intake, if unsure encouraged to discuss with their PCP. Encouraged to eat more chicken, fish and lean white meats and limits red meats in diet. Discussed importance with keeping BP under good control to reduce CVA risk factors. Will continue to f/u with PCP and cardiology during office visits and as needed. CMP Ordered. 3. Type 2 diabetes mellitus (E11.9: Type 2 diabetes mellitus without complications) Patient is compliant on current DM medications. Patient does monitors BS at home: DM stoplight handout reviewed with s/s to monitor for and report to PCP. Discussed ADA dietary recommendations with low carbs and reduce sugar intake. Patient encouraged to increase daily physical activity, adequate water intake and maintain a healthy weight. Pt follows up with PCP with yearly DM foot checks, due . Reminded patient to perform at home foot checks to prevent future complications, wash with soap and water, apply lotion to bilateral feet and in-between toes to prevent dryness and/or cracking. Wear proper fitting shoes and loose fitting socks and/or hose. Follows up with yearly DM eye exams, last visit notes from 03/30/2024 visit at [facility] has been requested. A1C, LIPID Pa (more content not included)... Normal [facility] Comment on above: Result Comment: Elec tronically Signed By: Paty Guevara\.br\Date and Time Signed: 03/22/25 10:45 EDT\.br\Electronically Co-Signed By: Lacy Rey\.br\Date and Time Co-Signed: 03/22/25 10:31 EDT Ambulatory Visit Summaryon 0 02-15-2025 Ambulatory Visit Summary Ambulatory Visit Summary HUANG ROBLES :1955 Visit Date:02/15/2025 Ambulatory Visit Instructions Your Diagnosis BMI 40.0-44.9, adult, Body mass index [BMI] 40.0-44.9, adult Non-smoker Class 3 severe obesity due to excess calories with body mass index (BMI) of 40.0 to 44.9 in adult Morbid (severe) obesity due to excess calories These Are Your Goals Maintain thereapeutic BP an prevent complications - Not met Interventions: Keep appointments as scheduled - Progressing Learn best practice for home moniotring of BP - Not done Learn the importance of medication compliance - Progressing Review educational material - Done Take Medications as Prescribed - Progressing Prevent complications of diabetes - Not met Interventions: Learn to identify signs and symptoms of hyper/hypoglycemia - Not done Monitor BS/ glucose levels as directed per PCP - Progressing Perform daily foot care; foot checks, lotion, proper fitting socks and shoes - Progressing Review educational material - Done Take medications as prescribed - Progressing Follow through with regular assessments to evaluate cognative function and prevent complications - Not met Interventions: Complete Annual Medicare Wellness Visit - Progressing Referral to Dr. Moulton 04/08, complete MRI prior on 04/07/24 Referral to Neurology- Dr. Padgett 03/09/24 - Done Practice good medication compliance and medication safety - Not met Interventions: Consult with pharmacy as needed - Not done Explore options such as: syncing medication refills, pill packs, combination pills when applicable - Progressing Notify PCP and/or other providers immediatley of medication changes - Not done Paramedicine to help with weekly medication set up - Done Set medication-taking reminders - Not done Your Care Team Attending Physician - Paty Guevara Primary Care Physician - Paty Guevara This Is Your Medications List [facility] Prescription (Freestyle Marshal 2 sensors) Mis Prescription (freestyle marshal 2 sensors) albuterol (Albuterol (Eqv-ProAir HFA) 90 mcg/inh inhalation aerosol) albuterol (Albuterol (Eqv-Ventolin HFA) 90 mcg/inh inhalation aerosol) apixaban (Eliquis) ascorbic acid (Vitamin C 500 mg Tab) atorvastatin bumetanide (bumetanide 1 mg Tab) clopidogrel cyanocobalamin (Vitamin B12) dapagliflozin (Farxiga 10 mg oral tablet) formoterol-mometasone (Dulera 100 mcg-5 mcg/inh inhalation aerosol) magnesium oxide metformin (MetFORMIN (Eqv-Glucophage XR) 500 mg oral tablet, extended release) metoprolol (Toprol-XL) mirabegron (mirabegron 50 mg oral tablet, extended release) multivitamin with minerals (PreserVision AREDS 2) nitroglycerin potassium chloride spironolactone (spironolactone 25 mg Tab) valsartan Procedures Performed Colonoscopy (05/13/2019), Laparoscopic cholecystectomy (04/03/2019), TURP - Transurethral resection of prostate (12/15/2015), Urodynamics (11/02/2015), Total hip replacement (09/08/2015), left total knee arhroplasty (05/10/2015), right total knee arthroplasty (02/22/2015), Cataract, Endoscopic retrograde cholangiopancreatography (ERCP) not completed due to anatomical derangements from previous surgery, Placement of stent in cardiac conduit, Rotator cuff repair, Tonsillectomy. Discharge Vitals Temperature (Temporal Artery) 36.3 ???C Heart Rate (Peripheral) 82 Respiratory Rate 18 Blood Pressure 124/84 Height 175.3 cm Height 69 in Weight 131.4 kg Weight 289.687 lb BMI 42.76 What to do next Scheduled Follow-Up Appointments Saturday 9:30 AM EDT With: Where: [place] [address]- 2024 10:20 AM EDT With: WILLIAM Christiansen APRN, [place] [facility] Where: [facility] [address] [address]- Saturday 10:40 AM EST With: Paty Guevara Where: [address] [address]- Medications What How Much When Why Instructions Unchanged albuterol (Albuterol (Eqv-ProAir HFA) 90 mcg/ inh inhalation aerosol) 2 Inhalation Inhalation Every 6 hours Type 2 diabetes mellitus Unchanged albuterol (Albuterol (Eqv-Ventolin HFA) 90 mcg/ inh inhalation aerosol) See instructions INHALE 2 PUFFS BY MOUTH EVERY 4 HOURS NEEDED Unchanged apixaban (Eliquis) 5 Milligram By Mouth 2 times a day Unchanged ascorbic acid (Vitamin C 500 mg Tab) 1 Tablets By Mouth Every day Unchanged atorvastatin 80 Milligram By Mouth At bedtime Unchanged bumetanide (bumetanide 1 mg Tab) 1 Tablets By Mouth Every day Unchanged clopidogrel 75 Milligram By Mouth Every day Unchanged cyanocobalamin (Vitamin B12) 1,000 Microgram By Mouth Every day Unchanged dapagliflozin (Farxiga 10 mg oral tablet) 10 Milligram By M (more content not included)... Normal [facility] Family Medicine Office/Clini c Noteon 02-15-2025 Family Medicine Office/Clinic Note Family Medicine Office/Clinic Note HPI Staff Huang is a 69 year old female presenting with 6 month f/u Patient is here for follow up on Diabetes. How often are you checking your blood sugars yes What are your average readings? 154 Paresthesias, Ulcerations or sores? no Lisinopril, aspirin, statin therapy? Eye Exam: had to reschedule he still has to do this Foot Exam: due today Last A1C: Hgb A1C %: 6.6 % High (11/18/24 10:30:00) no refills needed History of Present Illness pt presents today for diabetes follow up Review of Systems PHQ Score Initial Depression Screen Score: 0 SCORE Physical Exam Vitals & Measurements T: 36.3 ???C(Temporal Artery) HR: 82(Peripheral) RR: 18 BP: 124/84 SpO2: 96% HT: 69 in HT: 175.3 cm WT: 131.4 kg WT: 289.687 lb BMI: 42.76 General: alert, no acute distress ENMT: oral mucosa moist, no pharyngeal erythema or exudate Cardiovascular: regular rate and rhythm, normal peripheral perfusion Respiratory: Lungs CTA, respirations non labored Extremities: no deformity, no trauma Neurological: oriented x 4, LOC appropriate for age, CN II-XII intact, motor strength equal & normal bilaterally, speech normal Assessment/Plan 1. Type 2 diabetes mellitus (E11.9: Type 2 diabetes mellitus without complications) last HGBA1C was 6.6 on november 18. he will return next week for repeat. as it is too soon to check today. freestyle marshal is working well. pt checks BS while in office it is 147. RTC 3 months will be due for annual labs after 03/13 2. BMI 40.0-44.9, adult, (Z68.41: Body mass index [BMI] 40.0-44.9, adult)Body mass index [BMI] 40.0-44.9, adult BMI education given 3. Non-smoker (Z78.9: Other specified health status) continue not smoking 4. Class 3 severe obesity due to excess calories with body mass index (BMI) of 40.0 to 44.9 in adult (E66.813: Obesity, class 3) see above Follow-up No qualifying data available Problem List/Past Medical History Ongoing Anticoagulated Atrial fibrillation BMI 40.0-44.9, adult BPH with urinary obstruction Chronic GERD COPD type A Cough Depression Establishing care with new doctor, encounter for Family history of prostate cancer Fluid retention Forgetfulness Hypertension Limited mobility Nocturia OAB (overactive bladder) 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 Shortness of breath Type 2 diabetes mellitus Weakness Wheezing Historical BMI 45.0-49.9, adult Non-ST elevated myocardial infarction (non-STEMI) Procedure/Surgical History Colonoscopy (05/13/2019), Laparoscopic cholecystectomy (04/03/2019), TURP - Transurethral resection of prostate (12/15/2015), Urodynamics (11/02/2015), Total hip replacement (09/08/2015), left total knee arhroplasty (05/10/2015), right total knee arthroplasty (02/22/2015), Cataract, Endoscopic retrograde cholangiopancreatography (ERCP) not completed due to anatomical derangements from previous surgery, Placement of stent in cardiac conduit, Rotator cuff repair, Tonsillectomy. Medications Albuterol (Eqv-ProAir HFA) 90 mcg/inh inhalation aerosol, 180 mcg= 2 inh, Inhalation, q6hr Albuterol (Eqv-Ventolin HFA) 90 mcg/inh inhalation aerosol, See Instructions, 1 refills atorvastatin, 80 mg, Oral, Bedtime bumetanide 1 mg Tab, 1 mg= 1 tab(s), Oral, Daily clopidogrel, 75 mg, Oral, Daily Dulera 100 mcg-5 mcg/inh inhalation aerosol, See Instructions Eliquis, 5 mg, Oral, BID Farxiga 10 mg oral tablet, 10 mg, Oral, Daily, 1 refills Freestyle Marshal 2 sensors, See Instructions, 11 refills freestyle marshal 2 sensors, See Instructions, 6 refills magnesium oxide, 500 mg, Oral, Daily MetFORMIN (Eqv-Glucophage XR) 500 mg oral tablet, extended release, See Instructions, 1 refills mirabegron 50 mg oral tablet, extended release, 50 mg= 1 tab(s), Oral, Daily, 3 refills nitroglycerin, 0.4 mg, SubLingual, q5min, PRN potassium chloride, 10 mEq, Oral, Daily PreserVision AREDS 2, Chewed, BID spironolactone 25 mg Tab, 25 mg= 1 tab(s), Oral, Daily Toprol-XL, 25 mg, Oral, Daily valsartan, 40 mg, Oral, Daily Vitamin B12, 1000 mcg, Oral, Daily Vitamin C 500 mg Tab, 500 mg= 1 tab(s), Oral, Daily Allergies No Known Allergies Social History Alcohol - Denies Alcohol Use, 01/31/2015 Never., 05/04/2024 Substance Abuse - Denies Substance Abuse, 01/31/2015 Never., 05/04/2024 Tobacco - Denies Tobacco Use, 01/31/2015 Never (less than 100 in lifetime) Tobacco Use:. Never Smokeless Tobacco Use:. Cigarettes, Yes, 02/15/2025 Family History COPD: Sister. Cardiac arrhythmia: Brother. Diabetes mellitus type 2: Mother. Heart failure: Mother. Hyperthyroidism: Mother. Metastatic cancer: Father and Brother. Stroke: Mother. Immunizations Vaccine Date Status Comments influenza virus vaccine, inactivated - Not Given Patient Refuses SARS-CoV-2 (COVID-19) mRNA BNT-162b2 vax 03/24/2021 Recorded SARS-CoV-2 (COVID-19) mRNA BNT-162b2 vax 09/09/2020 Recorded SARS-CoV-2 (COVID-19) mRNA BNT-162b2 vax 08/19/19 (more content not included)... Normal [facility] Comment on above: Result Comment: Elec tronically Signed By: Paty Guevara\.br\Date and Time Signed: 02/15/25 11:38 EDT CHEMISTRYOrdered By: Yohana Huerta on 11-18-2024 HbA1c (Bld) [Mass fraction] 6.6 % High <=5.9% [facility] Chem[employer] Family Medicine Office/Clini c Noteon 11-18-2024 Family Medicine Office/Clinic Note Family Medicine Office/Clinic Note HPI Staff Gerson is a 69 year old male presenting for 3 month follow up Patient is here for follow up on Diabetes. How often are you checking your blood sugars? few times a day What are your average readings? _ 178 Paresthesias, Ulcerations or sores? no Lisinopril, aspirin, statin therapy? Yes Foot Exam: Eye Exam: Last A1c: Hgb A1C %: 5.9 % (06/22/24 09:50:00) Questions/Concerns: none History of Present Illness pt presents today for 3 month follow up on diabetes. due for HGBA1C Review of Systems PHQ Score Initial Depression Screen Score: 0 SCORE Physical Exam Vitals & Measurements HR: 70(Peripheral) RR: 16 BP: 126/84 SpO2: 96% HT: 69 in HT: 175.3 cm WT: 130.0 kg WT: 286.601 lb BMI: 42.3 General: alert, no acute distress ENMT: oral mucosa moist, no pharyngeal erythema or exudate Cardiovascular: regular rate and rhythm, normal peripheral perfusion Respiratory: Lungs CTA, respirations non labored Extremities: no deformity, no trauma Neurological: oriented x 4, LOC appropriate for age, CN II-XII intact, motor strength equal & normal bilaterally, speech normal Assessment/Plan 1. Type 2 diabetes mellitus (E11.9: Type 2 diabetes mellitus without complications) pt presents today for 3 month follow up on diabetes. will check HGBA1C in office today. pt is doing well. says when he checks BS on freestyle marshal it has been normal. denies needs at this time. RTC 3 months. will order annual labs at that visit. he will have to have those done before [facility] visit as a nurse visit. Ordered: HgbA1c Lab Specimen Collect [id number] 2. BMI 40.0-44.9, adult (Z68.41: Body mass index [BMI] 40.0-44.9, adult) BMI education given Ordered: HgbA1c Lab Specimen Collect [id number] 3. Non-smoker (Z78.9: Other specified health status) continue not smoking Ordered: HgbA1c Lab Specimen Collect [id number] Follow-up No qualifying data available Problem List/Past Medical History Ongoing Anticoagulated Atrial fibrillation BMI 40.0-44.9, adult BPH with urinary obstruction Chronic GERD COPD type A Cough Depression Establishing care with new doctor, encounter for Family history of prostate cancer Fluid retention Forgetfulness Hypertension Limited mobility Morbid obesity Morbid obesity with BMI of 40.0-44.9, adult Nocturia OAB (overactive bladder) 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 Shortness of breath Type 2 diabetes mellitus Weakness Wheezing Historical BMI 45.0-49.9, adult Non-ST elevated myocardial infarction (non-STEMI) Procedure/Surgical History Colonoscopy (05/13/2019), Laparoscopic cholecystectomy (04/03/2019), TURP - Transurethral resection of prostate (12/15/2015), Urodynamics (11/02/2015), Total hip replacement (09/08/2015), left total knee arhroplasty (05/10/2015), right total knee arthroplasty (02/22/2015), Cataract, Endoscopic retrograde cholangiopancreatography (ERCP) not completed due to anatomical derangements from previous surgery, Placement of stent in cardiac conduit, Rotator cuff repair, Tonsillectomy. Medications Albuterol (Eqv-ProAir HFA) 90 mcg/inh inhalation aerosol, 180 mcg= 2 inh, Inhalation, q6hr Albuterol (Eqv-Ventolin HFA) 90 mcg/inh inhalation aerosol, See Instructions, 1 refills atorvastatin, 80 mg, Oral, Bedtime bumetanide 1 mg Tab, 1 mg= 1 tab(s), Oral, Daily clopidogrel, 75 mg, Oral, Daily Dulera 100 mcg-5 mcg/inh inhalation aerosol, See Instructions Eliquis, 5 mg, Oral, BID Farxiga 10 mg oral tablet, 10 mg, Oral, Daily, 1 refills Freestyle Marshal 2 sensors, See Instructions, 11 refills freestyle marshal 2 sensors, See Instructions, 6 refills magnesium oxide, 500 mg, Oral, Daily MetFORMIN (Eqv-Glucophage XR) 500 mg oral tablet, extended release, See Instructions, 1 refills mirabegron 50 mg oral tablet, extended release, 50 mg= 1 tab(s), Oral, Daily, 3 refills nitroglycerin, 0.4 mg, SubLingual, q5min, PRN potassium chloride, 10 mEq, Oral, Daily PreserVision AREDS 2, Chewed, BID spironolactone 25 mg Tab, 25 mg= 1 tab(s), Oral, Daily Toprol-XL, 25 mg, Oral, Daily valsartan, 40 mg, Oral, Daily Vitamin B12, 1000 mcg, Oral, Daily Vitamin C 500 mg Tab, 500 mg= 1 tab(s), Oral, Daily Allergies No Known Allergies Social History Alcohol - Denies Alcohol Use, 01/31/2015 Never., 05/04/2024 Substance Abuse - Denies Substance Abuse, 01/31/2015 Never., 05/04/2024 Tobacco - Denies Tobacco Use, 01/31/2015 Never (less than 100 in lifetime) Tobacco Use:. Never Smokeless Tobacco Use:. Cigarettes, Yes, 09/11/2024 Family History COPD: Sister. Cardiac arrhythmia: Brother. Diabetes mellitus type 2: Mother. Heart failure: Mother. Hyperthyroidism: Mother. Metastatic cancer: Father and Brother. Stroke: Mother. Immunizations Vaccine Date Status Comments influenza virus vaccine, inactivated - Not Given Patient Refuses SARS-CoV-2 (COVID-19) mRNA BNT-162b2 vax 03/24/2021 Recorded SARS-CoV-2 (COVID-19) (more content not included)... Normal [facility] Comment on above: Result Comment: Elec tronically Signed By: Paty Guevara\.br\Date and Time Signed: 11/18/24 10:50 EDT [id number] 11-18-2024 HbA1c (Bld) [Mass fraction] 6.6 % High <=5.9 [facility] Comment on above: Performed By: #### [id number] #### [facility] [address] [place] [address] ECG 12 Leadon 09-22-2024 Atrial fibrillation with controlled rate and right bundle branch block [facility] Work Phone: Ambulatory Visit Summaryon 0 09-11-2024 Ambulatory Visit Summary Ambulatory Visit Summary HUANG ROBLES :1955 Visit Date:09/11/2024 Ambulatory Visit Instructions Your Diagnosis BPH with urinary obstruction OAB (overactive bladder) Family history of prostate cancer These Are Your Goals Maintain thereapeutic BP an prevent complications - Not met Interventions: Keep appointments as scheduled - Progressing Learn best practice for home moniotring of BP - Not done Learn the importance of medication compliance - Progressing Review educational material - Done Take Medications as Prescribed - Progressing Prevent complications of diabetes - Not met Interventions: Learn to identify signs and symptoms of hyper/hypoglycemia - Not done Monitor BS/ glucose levels as directed per PCP - Progressing Perform daily foot care; foot checks, lotion, proper fitting socks and shoes - Progressing Review educational material - Done Take medications as prescribed - Progressing Follow through with regular assessments to evaluate cognative function and prevent complications - Not met Interventions: Complete Annual Medicare Wellness Visit - Progressing Referral to Dr. Moulton 04/08, complete MRI prior on 04/07/24 Referral to Neurology- Dr. Padgett 03/09/24 - Done Practice good medication compliance and medication safety - Not met Interventions: Consult with pharmacy as needed - Not done Explore options such as: syncing medication refills, pill packs, combination pills when applicable - Progressing Notify PCP and/or other providers immediatley of medication changes - Not done Paramedicine to help with weekly medication set up - Done Set medication-taking reminders - Not done Your Care Team Attending Physician - JOCELYN DAVIDSON, Karissa Gary Primary Care Physician - Paty Guevara This Is Your Medications List mirabegron (mirabegron 50 mg oral tablet, extended release) Contact prescribing physician if questions or concerns Misc Prescription (Freestyle Marshal 2 sensors) Misc Prescription (freestyle marshal 2 sensors) albuterol (Albuterol (Eqv-ProAir HFA) 90 mcg/inh inhalation aerosol) albuterol (Albuterol (Eqv-Ventolin HFA) 90 mcg/inh inhalation aerosol) apixaban (Eliquis) ascorbic acid (Vitamin C 500 mg Tab) atorvastatin bumetanide (bumetanide 1 mg Tab) clopidogrel cyanocobalamin (Vitamin B12) dapagliflozin (Farxiga 10 mg oral tablet) magnesium oxide metformin (MetFORMIN (Eqv-Glucophage XR) 500 mg oral tablet, extended release) metoprolol (Toprol-XL) multivitamin with minerals (PreserVision AREDS 2) nitroglycerin potassium chloride spironolactone (spironolactone 25 mg Tab) valsartan [Image Removed: STOP]Stop taking these medications tolterodine (tolterodine 4 mg Cap-ER) Procedures Performed Colonoscopy (05/13/2019), Laparoscopic cholecystectomy (04/03/2019), TURP - Transurethral resection of prostate (12/15/2015), Urodynamics (11/02/2015), Total hip replacement (09/08/2015), left total knee arhroplasty (05/10/2015), right total knee arthroplasty (02/22/2015), Cataract, Endoscopic retrograde cholangiopancreatography (ERCP) not completed due to anatomical derangements from previous surgery, Placement of stent in cardiac conduit, Rotator cuff repair, Tonsillectomy. Discharge Vitals Temperature (Oral) 36.7 ???C Heart Rate (Peripheral) 76 Respiratory Rate 18 Blood Pressure 136/82 Height 175.3 cm Height 69 in Weight 123 kg Weight 271.168 lb BMI 40.03 What to do next Scheduled Follow-Up Appointments Saturday 10:00 AM EDT With: Paty Guevara Where: [address] [address]- Saturday 10:20 AM EDT With: Paty Guevara Where: [address] [address]- Saturday 9:30 AM EDT With: Where: [address] [address]- Saturday 9:45 AM EDT With: Karissa BANKS MD Where: [facility] [address] [place] [address]- You Need to Schedule the Following Appointments Follow Up with Karissa BANKS MD, URL When: Where: [facility] [address] , [place] [address]- Medications What How Much When Why Instructions New mirabegron (mirabegron 50 mg oral tablet, extended release) 1 Tablets By Mouth Every day Duration: 30 Days Refills: 11 Pickup at [employer] [address] Unchanged albuterol (Albuterol (Eqv-ProAir HFA) 90 mcg/ inh inhalation aerosol) 2 Inhalation Inhalation Every 6 hours Type 2 diabetes mellitus Contact prescribing physician if questions or concerns Unchanged albuterol (Albuterol (Eqv-Ventolin HFA) 90 mcg/ inh inhalation aerosol) See instructions INHALE 2 PUFFS BY MOUT (more content not included)... Normal [facility] PSA Screen, Totalon 09-12-19 25 Prostate specific Ag [Mass/Vol] 0.3 ng/mL Normal 0.1-3.5 [facility] Comment on above: Result Comment: The concentration of PSA determined by different manufacturers can vary due to differences in assay methods and reagent specificity. Values obtained from different assay methods cannot be used interchangeably. The methodology used for this result was chemiluminescence using [employer] PSA reagent. Performed By: #### [id number] #### [facility] [address] [place] [address] Urology Office/Clinic Noteon 09-11-2024 Urology Office/Clinic Note Urology Office/Clinic Note Chief Complaint 1 yr f/u w/ PSA HPI Staff 69yr old male pt here for 1yr f/u with PSA. S/p TURP 12/15/15. Previous Dx: BPH with urinary obstruction, nocturia, family history of prostate cancer *tolterodine 4mg ER qd PSA: 05/31/20 - 0.31 06/06/21 - 0.19 & 26.3% 08/21/22 - 0.38 07/25/23 - 0.35 pt has not gotten his PSA draw pt states once in awhile he feels he does not empty his bladder. frequency is 2-3 hrs, intermittency is usually during the night or in the morning History of Present Illness Tests reviewed: UA I have reviewed the previous health record information and history for this patient from Ilana Yepez PA-C. I have reviewed and verified the staff HPI to be accurate for this encounter. Review of Systems PHQ Score Initial Depression Screen Score: 0 SCORE ROS - Provider Constitutional: denies weight loss, denies hot flashes. Eyes: denies eye problems. Gastrointestinal: denies nausea, denies vomiting. Cardiovascular: denies chest pain or angina. Integumentary: no dryness Musculoskeletal: denies musculoskeletal symptoms. ENMT: denies otolaryngeal symptoms. Respiratory: no shortness of breath. Heme/Lymph: denies easy bleeding tendency, denies easy bruising tendency. Psychiatric: no confusion, no anxiety. Genitourinary: See HPI. Physical Exam Vitals & Measurements T: 36.7 ???C(Oral) HR: 76(Peripheral) RR: 18 BP: 136/82 HT: 175.3 cm HT: 69 in WT: 123 kg WT: 271.168 lb BMI: 40.03 General Appearance: alert, no distress, well nourished, well developed male. Assessment/Plan Pt here with his today. 1. BPH with urinary obstruction (N40.1: Benign prostatic hyperplasia with lower urinary tract symptoms) PSA: 05/31/20 - 0.31 06/06/21 - 0.19 & 26.3% 08/21/22 - 0.38 07/25/23 - 0.35 PSA drawn IO today S/p TURP 12/15/15. UA neg. No BPH meds. Stream varies regular to fast. Solid stream. Usually waits 10 min to see if he needs to empty more. No S/S of infection. 2. OAB (overactive bladder) (N32.81: Overactive bladder) Taking Tolterodine 4 mg ER qd. Voicing some UUI during the day and at night. Not often but does not like this sx. Voiding q1-2hr. Nocturia 1-3x, depends on fluid intake. Thinks he was on a med prior that was expensive but worked very well. Likely referring to myrbetriq which is now avaiable as a generic. Pt would like to try switching. Follow up 6 mos (new med) or sooner if needed. Pt understands and agrees with plan. -Limit/avoid fluids 2 hours before bed -Stop Tolterodine and start Mirabegron 50 mg qhs. Generic requested. Take for 2 mos. SEs discussed. Stop taking if unable to void. Sent to DM. Call if cost prohibitive or not happy with sx control. 3. Family history of prostate cancer (Z80.42: Family history of malignant neoplasm of prostate) Brother. Diagnosed in his 60s. [1] Follow-up With When Contact Information JOCELYN DAVIDSON, Karissa Gray, URL [facility] [address] [place] [address]- Additional Instructions: 6 mos (new med) Patient Education Overactive Bladder, Adult I, Marbella Brown, personally scribed for Dr. Banks on 09/11/2024 12:49:02. . Documentation recorded by the scribe, Marbella Brown, accurately reflects the services(s) I performed and decisions made by me. Authenticated by Dr. Banks on 09/11/2024 12:54:55. Problem List/Past Medical History Ongoing Anticoagulated Atrial fibrillation BMI 40.0-44.9, adult BPH with urinary obstruction Chronic GERD COPD type A Cough Depression Establishing care with new doctor, encounter for Family history of prostate cancer Fluid retention Forgetfulness Hypertension Limited mobility Morbid obesity Nocturia Non-ST elevated myocardial infarction (non-STEMI) OAB (overactive bladder) 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 Shortness of breath Type 2 diabetes mellitus Weakness Wheezing Historical BMI 45.0-49.9, adult Procedure/Surgical History Colonoscopy (05/13/2019), Laparoscopic cholecystectomy (04/03/2019), TURP - Transurethral resection of prostate (12/15/2015), Urodynamics (11/02/2015), Total hip replacement (09/08/2015), left total knee arhroplasty (05/10/2015), right total knee arthroplasty (02/22/2015), Cataract, Endoscopic retrograde cholangiopancreatography (ERCP) not completed due to anatomical derangements from previous surgery, Placement of stent in cardiac conduit, Rotator cuff repair, Tonsillectomy. Medications Albuterol (Eqv-ProAir HFA) 90 mcg/inh inhalation aerosol, 180 mcg= 2 inh, Inhalation, q6hr Albuterol (Eqv-Ventolin HFA) 90 mcg/inh inhalation aerosol, See Instructions atorvastatin, 80 mg, Oral, Bedtime bumetanide 1 mg Tab, 1 mg= 1 tab(s), Oral, Daily clopidogrel, 75 mg, Oral, Daily Eliquis, 5 mg, Oral, BID Farxiga 10 mg oral tablet, 10 mg, Oral, Daily, 1 refills Freestyle Marshal 2 sensors, See Instructions, 11 refills freestyle marshal 2 sensors, (more content not included)... Normal [facility] Comment on above: Result Comment: Elec tronically Signed By: Karissa BANKS MD\.br\Date and Time Signed: 09/11/24 12:55 EDT\.br\Electronically Co-Signed By: Marbella Brown\.br\Date and Time Co-Signed: 09/11/24 12:49 EDT Family Medicine Office/Clini c Noteon 08-21-2024 Family Medicine Office/Clinic Note Family Medicine Office/Clinic Note HPI Staff Huang is a 69 year old male presenting for 3 month follow up Patient is here for follow up on Diabetes. How often are you checking your blood sugars? 3 times per day What are your average readings? unsure Paresthesias, Ulcerations or sores? no Lisinopril, aspirin, statin therapy? Yes Eye Exam: Due for exam Last A1c: Hgb A1C %: 5.9 % (06/22/24 09:50:00) Questions/Concerns: none History of Present Illness pt presents today for 3 month follow up for diabetes. Review of Systems PHQ Score Initial Depression Screen Score: 0 SCORE Physical Exam Vitals & Measurements HR: 78(Peripheral) RR: 18 BP: 138/80 SpO2: 99% HT: 69 in HT: 174.0 cm WT: 129.3 kg WT: 285.057 lb BMI: 42.71 General: alert, no acute distress ENMT: oral mucosa moist, no pharyngeal erythema or exudate Cardiovascular: regular rate and rhythm, normal peripheral perfusion Respiratory: Lungs CTA, respirations non labored Extremities: no deformity, no trauma Neurological: oriented x 4, LOC appropriate for age, CN II-XII intact, motor strength equal & normal bilaterally, speech normal Assessment/Plan 1. Type 2 diabetes mellitus (E11.9: Type 2 diabetes mellitus without complications) pt presents today for 3 month follow up. HGBA1C is 5.9 on 06/22. Will recheck HGBA1C in 3 months. pt will need refills on Marshal sensors. Sister questions if he should stay on metformin and farxiga. will keep him on both until we check next HGBA1C. all questions answered. RTC 3 months Ordered: Misc Prescription, Freestyle Marshal 3 Flash Glucose Monitoring 14 Day System (Sensor), See Instructions, 6 EA, 1, Freestyle Marshal 3 Flash Glucose Monitoring 14 Day System (Sensor). Replace sensor every 14 days., [id number], Supply, 174, cm, 01/20/24 10:48:00 EDT,... Misc Prescription, Freestyle Marshal 3 sensors, See Instructions, 12 EA, 1, change as needed, [id number], Supply, 174, cm, 01/20/24 10:48:00 EDT, Height/Length Dosing, 130, kg, 01/20/24 10:48:00 EDT, Weight Dosing Misc Prescription, Freestyle Marshal 2 sensors, See Instructions, 6 EA, 11, check BS 4 times a day, [facility], Supply, 174, cm, 08/17/24 10:24:00 EST, Height/Length Dosing, 129.3, kg, 08/17/24 10:24:00 EST, Weight Dosing 2. BMI 40.0-44.9, adult (Z68.41: Body mass index [BMI] 40.0-44.9, adult) BMI education given Ordered: Misc Prescription, Freestyle Marshal 2 sensors, See Instructions, 6 EA, 11, check BS 4 times a day, [facility], Supply, 174, cm, 08/17/24 10:24:00 EST, Height/Length Dosing, 129.3, kg, 08/17/24 10:24:00 EST, Weight Dosing 3. Non-smoker (Z78.9: Other specified health status) continue not smoking Ordered: Misc Prescription, Freestyle Marshal 3 Flash Glucose Monitoring 14 Day System (Sensor), See Instructions, 6 EA, 1, Freestyle Marshal 3 Flash Glucose Monitoring 14 Day System (Sensor). Replace sensor every 14 days., [id number], Supply, 174, cm, 01/20/24 10:48:00 EDT,... Misc Prescription, Freestyle Marshal 3 sensors, See Instructions, 12 EA, 1, change as needed, [id number], Supply, 174, cm, 01/20/24 10:48:00 EDT, Height/Length Dosing, 130, kg, 01/20/24 10:48:00 EDT, Weight Dosing [facility] Prescription, Freestyle Marshal 2 sensors, See Instructions, 6 EA, 11, check BS 4 times a day, [employer] [facility], Supply, 174, cm, 08/17/24 10:24:00 EST, Height/Length Dosing, 129.3, kg, 08/17/24 10:24:00 EST, Weight Dosing Orders: metformin, See Instructions, TAKE 1 TABLET BY MOUTH TWICE A DAY FOR 90 DAYS, # 180 tab(s), Refills(s) 1, Pharmacy: [id number], 174, cm, 03/12/24 8:58:00 EDT, Height/Length Dosing, 127.7, kg, 03/12/24 8:58:00 EDT, Weight Dosing Follow-up No qualifying data available Problem List/Past Medical History Ongoing Anticoagulated Atrial fibrillation BMI 40.0-44.9, adult BPH with urinary obstruction Chronic GERD COPD type A Cough Depression Establishing care with new doctor, encounter for Family history of prostate cancer Fluid retention Forgetfulness Hypertension Limited mobility Morbid obesity Nocturia Non-ST elevated myocardial infarction (non-STEMI) 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 Shortness of breath Type 2 diabetes mellitus Urge incontinence Urinary frequency Urinary urgency Weakness Wheezing Historical BMI 45.0-49.9, adult Procedure/Surgical History Colonoscopy (05/13/2019), Laparoscopic cholecystectomy (04/03/2019), TURP - Transurethral resection of prostate (12/15/2015), Urodynamics (11/02/2015), Total hip replacement (09/08/2015), left total knee arhroplasty (05/10/2015), right total knee arthroplasty (02/22/2015), Cataract, Endoscopic retrograde cholangiopancreatography (ERCP) not completed due to anatomical derangements from previous surgery, Placement of stent in cardiac conduit, Rotator cuff repair, Tonsillectomy. Medications Albuterol (Eqv-ProAir HFA) 90 mcg/inh inhalation aerosol, 180 mcg= 2 inh, Inhalation, q6hr Albuter (more content not included)... Normal [facility] Comment on above: Result Comment: Elec tronically Signed By: Paty Guevara\.br\Date and Time Signed: 08/21/24 11:11 EST CHEMISTRYOrdered By: Yohana Huerta on 06-22-2024 HbA1c (Bld) [Mass fraction] 5.9 % Normal <=5.9% [facility] ChemAutoSS [id number] 06-22-2024 HbA1c (Bld) [Mass fraction] 5.9 % Normal <=5.9 [facility] Comment on above: Performed By: #### [id number] #### [facility] [address] [place] [address] Pre-Visit Planningon 024 Pre-Visit Planning Pre-Visit Planning From: Heather AREVALO, Tiff To: Paty Guevara; Sent: 05/15/2024 14:43:03 EST Subject: Pre-Visit Planning Due Date/Time: 05/15/2024 14:42:00 EST Caller Name: HUANG ROBLES; Caller Number: Bj , Ny Paty, *Based on your response below, can you please update the chronic problem list and address during this visit if appropriate?* During a pre-visit planning chart review, I noted the following documentation in the medical record: Problem list- Non-ST elevated myocardial infarction 01/20/2024 office note- NSTEMI 03/12/2024 office note-3. Non-ST elevated myocardial infarction (non-STEMI) (I21.4: Non-ST elevation (NSTEMI) myocardial infarction) Patient follows [facility] as directed and prn. Based on your medical judgment, can you further clarify the status of patient's NSTEMI? - History of Non-ST elevated myocardial infarction - Non-ST elevated myocardial infarction - Other (please specify): I can update the problem list with your specified response if you would like. In responding to this request, please exercise your independent professional judgement. The fact that a question is asked does not imply that any particular answer is desired or expected. If you have any questions, please feel free to contact me at [phone]. Thank you! ROCIO Jacques, RN, CCM, CCDS, CCDS-O CDI [employer] [facility] [address] [place], [place] [address] P: [phone] F: [phone] [email or web address] From: Paty Guevara To: Heather AREVALO, Tiff; Sent: 06/08/2024 13:08:47 EST Subject: RE: Pre-Visit Planning Caller Name: HUANG ROBLES; Caller Number: Bj , M History of Non ST elevated ME Normal [facility] Interdisciplinary Note - Soc ial Workeron 06-05-2024 Interdisciplinary Note - Large Engine Assembler Interdisciplinary Note - Large Engine Assembler Consult received from PCP's office regarding care needs patient has. SW contacted patient's sister, Marcia, and discussed needs with her. She explains that the things patient needs the most help with are medication set up, housekeeping, and dietary needs (he has food restrictions that he does not follow). SW spoke to her about, and emailed lists of resources including private hire agencies, potentially looking into seeing if any students from a local school of nursing might be able to be hired (she was informed these individuals would not be bonded or insured as they would if they were employed by an agency), OS, [facility], [employer], [place], and a general [facility] Resource Guide. She will review the information and is aware that she can reach out to this SW with any questions or if further information is needed. SW will remain available. Normal [facility] Family Medicine Office/Clini c Noteon 06-04-2024 Family Medicine Office/Clinic Note Family Medicine Office/Clinic Note Chief Complaint 1m f/u HPI Staff Pt presents today for 1m f/u HITESH 01/20/24: pt referred to neuro. HH. & Nutrition Sister states that they have not heard from wax room supervisor, nor HH. They were contacted by neuro, however have not scheduled yet. Huang denies any current sx. Sister states he has been having SOB. History of Present Illness pt presents today for follow up on diabetes Review of Systems PHQ Score Initial Depression Screen Score: 0 SCORE Physical Exam Vitals & Measurements T: 36.5 ???C(Oral) HR: 74(Peripheral) RR: 16 BP: 172/88 SpO2: 98% HT: 69 in HT: 174 cm WT: 129.2 kg WT: 284.24 lb BMI: 42.67 General: alert, no acute distress ENMT: oral mucosa moist, no pharyngeal erythema or exudate Cardiovascular: regular rate and rhythm, normal peripheral perfusion Respiratory: Lungs CTA, respirations non labored Extremities: no deformity, no trauma Neurological: oriented x 4, LOC appropriate for age, CN II-XII intact, motor strength equal & normal bilaterally, speech normal Assessment/Plan 1. Type 2 diabetes mellitus (E11.9: Type 2 diabetes mellitus without complications) pt is c/o frequent urination. u/a was negative for everything except glucose >1000. discussed the importance of managing his diet correctly. pt was referred to diabetic education but has still not heard from anyone to schedule a visit. will place referral again today. discussed the importance of staying away from breads, pastas, starches and fruits that are high in sugar. pt verbalizes understanding. pt will return in 3 months for HGBA1C. his sister will call office with info needed for diabetic shoes she has to go through a different company due to insurance request. pt will benefit from diabetic shoes. due to decreased sensation and neuropathy. and callous formation. Ordered: [facility] Internal Ambulatory Referral Urnls Dip Stick Auto w/o Microscopy POC [id number] 2. Shortness of breath (R06.02: Shortness of breath) pt gets SOB on exertion. his infant caregiver states he just sits around all day. he is not active at all. encouraged him to get up every hour and walk around his house. if weather is not good, he will get up and walk around from room to room every hour. pt verbalizes understanding. Ordered: [facility] Internal Ambulatory Referral 3. Urinary frequency (R35.0: Frequency of micturition) u/a negative except for glucose 4. BMI 40.0-44.9, adult (Z68.41: Body mass index [BMI] 40.0-44.9, adult) BMI education given Ordered: [facility] Internal Ambulatory Referral Follow-up No qualifying data available Problem List/Past Medical History Ongoing Anticoagulated Atrial fibrillation BMI 40.0-44.9, adult BMI 45.0-49.9, adult BPH with urinary obstruction Chronic GERD Depression Diabetes Establishing care with new doctor, encounter for Family history of prostate cancer Fluid retention Forgetfulness Hypertension Morbid obesity Nocturia Non-ST elevated myocardial infarction (non-STEMI) 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 Shortness of breath Type 2 diabetes mellitus Urge incontinence Urinary frequency Urinary urgency Historical No qualifying data Procedure/Surgical History Colonoscopy (05/13/2019), Laparoscopic cholecystectomy (04/03/2019), TURP - Transurethral resection of prostate (12/15/2015), Urodynamics (11/02/2015), Total hip replacement (09/08/2015), left total knee arhroplasty (05/10/2015), right total knee arthroplasty (02/22/2015), Cataract, Endoscopic retrograde cholangiopancreatography (ERCP) not completed due to anatomical derangements from previous surgery, Placement of stent in cardiac conduit, Rotator cuff repair, Tonsillectomy. Medications Albuterol (Eqv-Ventolin HFA) 90 mcg/inh inhalation aerosol, See Instructions aspirin, 81 mg, Chewed, Daily atorvastatin, 80 mg, Oral, Bedtime bumetanide, 1 mg, Oral, Daily clopidogrel, 75 mg, Oral, Daily Dulera 100 mcg-5 mcg/inh inhalation aerosol, 2 puff(s), Inhalation, BID, 11 refills Eliquis, 5 mg, Oral, BID Farxiga 10 mg oral tablet, 10 mg, Oral, Daily, 1 refills Freestyle Marshal 2 Flash Glucose Monitoring 14 Day System (Staples), See Instructions freestyle marshal 2 sensors, See Instructions, 6 refills Freestyle Marshal 3 Flash Glucose Monitoring 14 Day System (Sensor), See Instructions, 1 refills Freestyle Marshal 3 sensors, See Instructions, 1 refills magnesium oxide, 500 mg, Oral, Bedtime MetFORMIN (Eqv-Glucophage XR) 500 mg oral tablet, extended release, See Instructions nitroglycerin, 0.4 mg, SubLingual, q5min, PRN potassium chloride, 10 mEq, Oral, Every other day Refresh, 1 drop(s), Eye-Both, PRN spironolactone 25 mg Tab, 25 mg= 1 tab(s), Oral, Daily tolterodine 4 mg Cap-ER, 4 mg= 1 cap(s), Oral, Daily, 3 refills Toprol-XL, 25 mg, Oral, Daily valsartan, 40 mg, Oral, Daily Vitamin B12, 1000 mcg, Oral, Daily Vitamin C 500 mg Tab, 500 mg= 1 tab(s), Oral, Daily Allergies No Known Allergies Social Hist (more content not included)... Normal [facility] Comment on above: Result Comment: Elec tronically Signed By: Paty Guevara\.br\Date and Time Signed: 06/04/24 12:58 EST Population Health 06[facility] Case Information Case Priority: None Programs: -- Referral Source: Carburizing Furnace Operator Referral Reason: Disease management Case Type: Chronic Care Management Risk Score: -- Case Status: Enrolled (February 26, 2024) Date Assigned: February 10, 2024 Assigned By: Wayne Nunes Date Enrolled: February 26, 2024 Assigned Primary Personnel: Wayne Nunes Assigned Secondary Personnel: -- Case Physician: Paty Guevara Problems Ongoing Anticoagulated Atrial fibrillation BMI 40.0-44.9, adult BPH with urinary obstruction Chronic GERD Cough Depression Establishing care with new doctor, encounter for Family history of prostate cancer Fluid retention Forgetfulness Hypertension Morbid obesity Nocturia Non-ST elevated myocardial infarction (non-STEMI) 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 Shortness of breath Type 2 diabetes mellitus Urge incontinence Urinary frequency Urinary urgency Wheezing Historical BMI 45.0-49.9, adult Procedure/Surgical History Colonoscopy (05/13/2019), Laparoscopic cholecystectomy (04/03/2019), TURP - Transurethral resection of prostate (12/15/2015), Urodynamics (11/02/2015), Total hip replacement (09/08/2015), left total knee arhroplasty (05/10/2015), right total knee arthroplasty (02/22/2015), Cataract, Endoscopic retrograde cholangiopancreatography (ERCP) not completed due to anatomical derangements from previous surgery, Placement of stent in cardiac conduit, Rotator cuff repair, Tonsillectomy. Home Medications Albuterol (Eqv-ProAir HFA) 90 mcg/inh inhalation aerosol, 180 mcg= 2 inh, Inhalation, q6hr Albuterol (Eqv-Ventolin HFA) 90 mcg/inh inhalation aerosol, See Instructions atorvastatin, 80 mg, Oral, Bedtime Bromfed DM oral syrup, 5 mL, Oral, QID, PRN bumetanide 1 mg Tab clopidogrel, 75 mg, Oral, Daily Dulera 100 mcg-5 mcg/inh inhalation aerosol, 2 puff(s), Inhalation, BID, 11 refills Dulera 100 mcg-5 mcg/inh inhalation aerosol, 2 puff(s), Inhalation, BID Eliquis, 5 mg, Oral, BID Farxiga 10 mg oral tablet, 10 mg, Oral, Daily, 1 refills freestyle marshal 2 sensors, See Instructions, 6 refills Freestyle Marshal 3 Flash Glucose Monitoring 14 Day System (Sensor), See Instructions, 1 refills Freestyle Marshal 3 sensors, See Instructions, 1 refills magnesium oxide, 500 mg, Oral, Daily MetFORMIN (Eqv-Glucophage XR) 500 mg oral tablet, extended release, See Instructions MetFORMIN (Eqv-Glucophage XR) 500 mg oral tablet, extended release, See Instructions, 1 refills nitroglycerin, 0.4 mg, SubLingual, q5min, PRN potassium chloride, 10 mEq, Oral, Daily PreserVision AREDS 2, Chewed, BID Refresh, 1 drop(s), Eye-Both, PRN spironolactone 25 mg Tab, 25 mg= 1 tab(s), Oral, Daily tolterodine 4 mg Cap-ER, 4 mg= 1 cap(s), Oral, Daily, 3 refills Toprol-XL, 25 mg, Oral, Daily twin sized firm extra long mattress for hospital bed, See Instructions valsartan, 40 mg, Oral, Daily Vitamin B12, 1000 mcg, Oral, Daily Vitamin C 500 mg Tab, 500 mg= 1 tab(s), Oral, Daily Allergies No Known Allergies Social History Alcohol - Denies Alcohol Use, 01/31/2015 Never., 05/04/2024 Substance Abuse - Denies Substance Abuse, 01/31/2015 Never., 05/04/2024 Tobacco - Denies Tobacco Use, 01/31/2015 Never (less than 100 in lifetime) Tobacco Use:. Never Smokeless Tobacco Use:. Cigarettes, 05/18/2024 Family History COPD: Sister. Cardiac arrhythmia: Brother. Diabetes mellitus type 2: Mother. Heart failure: Mother. Hyperthyroidism: Mother. Metastatic cancer: Father and Brother. Stroke: Mother. Screenings and Assessments 03/24/24 12:49:00 Result Name Value Comment Phone Call Monitoring Consent Agreed to continue call Phone Verification Patient Information Full name, street address and date of verified CM Program Enrollment Provides verbal consent for enrollment CCM Written Consent Written consent obtained 02/26/24 08:35:00 Result Name Value Comment CCM Program Enrollment Verbally agreed to receive CCM services CCM Verbal Consent By Self 02/25/24 10:00:00 Result Name Value Comment HIPPA Verified Type of Contact In person at home Information Given by Self CM Preferred Spoken Language Angolan CM Preferred Written Language Angolan Preferred Communication Mode Verbal Ability to Read/Write Able to read, Able to write CM Caregiver's Preferred Spoken Language Angolan CM Caregivers Preferred Written Language Angolan Software Developer Intern Called No Preferred Method of Contact Cell Cell Best Time to Visit or Contact 7-10 am Best Day to Visit or Contact No preference Appointment Reminders Phone, Other secured messaging Preferred Way to Send PHI Other secur (more content not included)... Normal [facility] Ambulatory Visit Summaryon 1 07-18-2023 Ambulatory Visit Summary Ambulatory Visit Summary HUANG ROBLES :1955 Visit Date:05/18/2024 Ambulatory Visit Instructions Your Diagnosis Type 2 diabetes mellitus Cough Wheezing Atrial fibrillation BMI 40.0-44.9, adult, Body mass index [BMI] 40.0-44.9, adult Morbid obesity with BMI of 40.0-44.9, adult Nonsmoker These Are Your Goals Maintain thereapeutic BP an prevent complications - Not met Interventions: Keep appointments as scheduled - Progressing Learn best practice for home moniotring of BP - Not done Learn the importance of medication compliance - Progressing Review educational material - Done Take Medications as Prescribed - Progressing Prevent complications of diabetes - Not met Interventions: Learn to identify signs and symptoms of hyper/hypoglycemia - Not done Monitor BS/ glucose levels as directed per PCP - Progressing Perform daily foot care; foot checks, lotion, proper fitting socks and shoes - Progressing Review educational material - Done Take medications as prescribed - Progressing Follow through with regular assessments to evaluate cognative function and prevent complications - Not met Interventions: Complete Annual Medicare Wellness Visit - Progressing Referral to Dr. Moulton 04/08, complete MRI prior on 04/07/24 Referral to Neurology- Dr. Padgett 03/09/24 - Done Practice good medication compliance and medication safety - Not met Interventions: Consult with pharmacy as needed - Not done Explore options such as: syncing medication refills, pill packs, combination pills when applicable - Progressing Notify PCP and/or other providers immediatley of medication changes - Not done Paramedicine to help with weekly medication set up - Done Set medication-taking reminders - Not done Your Care Team Attending Physician - Paty Guevara Primary Care Physician - Paty Guevara This Is Your Medications List Misc Prescription (Freestyle Marshal 3 Flash Glucose Monitoring 14 Day System (Sensor)) Misc Prescription (Freestyle Marshal 3 sensors) Misc Prescription (freestyle marshal 2 sensors) albuterol (Albuterol (Eqv-ProAir HFA) 90 mcg/inh inhalation aerosol) albuterol (Albuterol (Eqv-Ventolin HFA) 90 mcg/inh inhalation aerosol) apixaban (Eliquis) ascorbic acid (Vitamin C 500 mg Tab) atorvastatin brompheniramine/dextrometh orphan/PSE (Bromfed DM oral syrup) bumetanide (bumetanide 1 mg Tab) clopidogrel cyanocobalamin (Vitamin B12) dapagliflozin (Farxiga 10 mg oral tablet) formoterol-mometasone (Dulera 100 mcg-5 mcg/inh inhalation aerosol) formoterol-mometasone (Dulera 100 mcg-5 mcg/inh inhalation aerosol) magnesium oxide metformin (MetFORMIN (Eqv-Glucophage XR) 500 mg oral tablet, extended release) metoprolol (Toprol-XL) multivitamin with minerals (PreserVision AREDS 2) nitroglycerin ocular lubricant (Refresh) potassium chloride spironolactone (spironolactone 25 mg Tab) tolterodine (tolterodine 4 mg Cap-ER) valsartan Procedures Performed Colonoscopy (05/13/2019), Laparoscopic cholecystectomy (04/03/2019), TURP - Transurethral resection of prostate (12/15/2015), Urodynamics (11/02/2015), Total hip replacement (09/08/2015), left total knee arhroplasty (05/10/2015), right total knee arthroplasty (02/22/2015), Cataract, Endoscopic retrograde cholangiopancreatography (ERCP) not completed due to anatomical derangements from previous surgery, Placement of stent in cardiac conduit, Rotator cuff repair, Tonsillectomy. Discharge Vitals Temperature (Temporal Artery) 36.1 ???C Heart Rate (Peripheral) 70 Respiratory Rate 18 Blood Pressure 122/80 Height 174 cm Height 69 in Weight 122.2 kg Weight 269.405 lb BMI 40.36 What to do next Scheduled Follow-Up Appointments Saturday 10:00 AM EST With: Where: [address] [id number]- Saturday 8:45 AM EST With: Karissa BANKS MD Where: [facility] [address] [place], [place] [id number]- Saturday 9:30 AM EDT With: Where: [address] [address]- You Need to Complete the Following XR Chest 2 Views, 05/18/24, Routine, Order for future visit, Transport Mode: Cart, Reason: Cough, No, Type 2 diabetes mellitus Cough Wheezing Atrial fibrillation BMI 40.0-44.9, adult Morbid obesity with BMI of 40.0-44.9, adult, pp_set_radiology_subspecia lty,... Medications What How Much When Why Instructions Unchanged albuterol (Albuterol (Eqv-ProAir HFA) 90 mcg/ inh inhalation aerosol) 2 Inhalation Inhalation Every 6 hours Type 2 diabetes mellitus Unchanged albuterol (Albuterol (Eqv-Ventolin HFA) 90 mcg/ inh inhalation aerosol) See instructions INHALE 2 PUFFS BY MOUTH EVERY 4 HOURS NEEDED Un (more content not included)... Normal [facility] Medicine Office/Clini c Noteon 05-18-2024 Family Medicine Office/Clinic Note Family Medicine Office/Clinic Note HPI Staff Huang is a 68 year old male presenting with 3 month f/u w/ A1C HITESH- was refereed to diabetic education, did not hear anything so another referral was put in Do you have any of the following symptoms? Foot Exam: UTD Eye Exam: UTD Last A1C: March 13 2024 (5.9) Statin: Atorvastatin 80 mg questions/concerns: still coughing, sore throat, ran out of the bromfed today, still using the inhaler. Better with the medicine but he ran out. How can he get rid of this? History of Present Illness pt presents today for 3 month follow up Physical Exam Vitals & Measurements T: 36.1 ???C(Temporal Artery) HR: 70(Peripheral) RR: 18 BP: 122/80 SpO2: 100% HT: 69 in HT: 174 cm WT: 122.2 kg WT: 269.405 lb BMI: 40.36 General: alert, no acute distress ENMT: oral mucosa moist, no pharyngeal erythema or exudate Cardiovascular: regular rate and rhythm, normal peripheral perfusion Respiratory: Lungs CTA, respirations non labored Extremities: no deformity, no trauma Neurological: oriented x 4, LOC appropriate for age, CN II-XII intact, motor strength equal & normal bilaterally, speech normal Assessment/Plan 1. Type 2 diabetes mellitus (E11.9: Type 2 diabetes mellitus without complications) will check HGBA1C after June 12 Ordered: brompheniramine/dextrometh orphan/PSE, 5 mL, Oral, QID for cough and congestion, 200 mL, Refill(s) 0, [id number], 174, cm, 05/18/24 9:55:00 EST, Height/Length Dosing, 122.2, kg, 05/18/24 9:55:00 EST, Weight Dosing brompheniramine/dextrometh orphan/PSE, 5 mL, Oral, QID for cough and congestion, 200 mL, Refill(s) 0, [id number], 174, cm, 05/14/24 14:26:00 EST, Height/Length Dosing, 121.9, kg, 05/14/24 14:26:00 EST, Weight Dosing triamcinolone, 60 mg = 1.5 mL, Injection, IntraARTICULAR, Once, Stop date 05/18/24 11:15:00 EST, Routine, Start date 05/18/24 11:15:00 EST, 05/18/24 11:15:00 EST XR Chest 2 Views 2. Cough (R05.9: Cough, unspecified) pt has been treated with z nacho and levaquin. but is still coughing and wheezing. will send more bromfed Ordered: triamcinolone, 60 mg = 1.5 mL, Injection, IntraARTICULAR, Once, Stop date 05/18/24 11:15:00 EST, Routine, Start date 05/18/24 11:15:00 EST, 05/18/24 11:15:00 EST XR Chest 2 Views 3. Wheezing (R06.2: Wheezing) will continue albuterol inhaler. kenalog given in office today. Ordered: triamcinolone, 60 mg = 1.5 mL, Injection, IntraARTICULAR, Once, Stop date 05/18/24 11:15:00 EST, Routine, Start date 05/18/24 11:15:00 EST, 05/18/24 11:15:00 EST XR Chest 2 Views 4. Atrial fibrillation (I48.91: Unspecified atrial fibrillation) heart rate no in afib today Ordered: triamcinolone, 60 mg = 1.5 mL, Injection, IntraARTICULAR, Once, Stop date 05/18/24 11:15:00 EST, Routine, Start date 05/18/24 11:15:00 EST, 05/18/24 11:15:00 EST XR Chest 2 Views 5. BMI 40.0-44.9, adult, (Z68.41: Body mass index [BMI] 40.0-44.9, adult)Body mass index [BMI] 40.0-44.9, adult BMI education given Ordered: triamcinolone, 60 mg = 1.5 mL, Injection, IntraARTICULAR, Once, Stop date 05/18/24 11:15:00 EST, Routine, Start date 05/18/24 11:15:00 EST, 05/18/24 11:15:00 EST XR Chest 2 Views 6. Morbid obesity with BMI of 40.0-44.9, adult (E66.01: Morbid (severe) obesity due to excess calories) see above Ordered: XR Chest 2 Views 7. Nonsmoker (Z78.9: Other specified health status) continue not smoking Follow-up No qualifying data available Problem List/Past Medical History Ongoing Anticoagulated Atrial fibrillation BMI 40.0-44.9, adult BPH with urinary obstruction Chronic GERD Cough Depression Establishing care with new doctor, encounter for Family history of prostate cancer Fluid retention Forgetfulness Hypertension Morbid obesity Nocturia Non-ST elevated myocardial infarction (non-STEMI) 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 Shortness of breath Type 2 diabetes mellitus Urge incontinence Urinary frequency Urinary urgency Wheezing Historical BMI 45.0-49.9, adult Procedure/Surgical History Colonoscopy (05/13/2019), Laparoscopic cholecystectomy (04/03/2019), TURP - Transurethral resection of prostate (12/15/2015), Urodynamics (11/02/2015), Total hip replacement (09/08/2015), left total knee arhroplasty (05/10/2015), right total knee arthroplasty (02/22/2015), Cataract, Endoscopic retrograde cholangiopancreatography (ERCP) not completed due to anatomical derangements from previous surgery, Placement of stent in cardiac conduit, Rotator cuff repair, Tonsillectomy. Medications Albuterol (Eqv-ProAir HFA) 90 mcg/inh inhalation aerosol, 180 mcg= 2 inh, Inhalation, q6hr Albuterol (Eqv-Ventolin HFA) 90 mcg/inh inhalation aerosol, See Instructions atorvastatin, 80 mg, Oral, Bedtime Bromfed DM oral syrup, 5 mL, Oral, QID, PRN bumetanide 1 mg Tab clopidogrel, 75 mg, Oral, Daily Dulera 100 mcg-5 mcg/inh inhalation aerosol, 2 puff(s), Inhalation, BID, 11 refills Dulera 100 (more content not included)... Normal [facility] Comment on above: Result Comment: Elec tronically Signed By: Paty Guevara\.anand\Date and Time Signed: 05/18/24 12:34 EST XR Chest 2 Viewson 4 XR Chest 2 Views Exam Date/Time: 05/18/2024 13:00 EST Reason for Exam: E11.9, R05.9;Cough Report IMPRESSION: LEFT LOWER LUNG ATELECTASIS/PNEUMONIA. CLINICAL INFORMATION: Cough, E11.9, R05.9 COMPARISON: JANUARY 08, 2024. FINDINGS: 2 views. Osseous structures intact. Cardiopericardial silhouette normal. Pulmonary vasculature normal. Lungs hyperexpanded right lung clear. Ill-defined area increased opacity left lung base. Ordering Provider: Paty Pierre FINAL REPORT Dictated: 05/18/2024 5:45 pm Jarred Acevedo MD Signed (Electronic Signature): 05/18/2024 5:45 pm Signed by: Jarred Acevedo MD Transcribed by: UGO Technologist: MARIA DEL CARMEN Technical Comments Radiation Dose: Ka,r in mGy = na DAP = na [facility] Pre-Visit Planningon 024 Pre-Visit Planning Pre-Visit Planning From: Heather AREVALO, Tiff To: Paty Guevara; Sent: 05/15/2024 14:33:30 EST Subject: Pre-Visit Planning Due Date/Time: 05/15/2024 14:33:00 EST Caller Name: HUANG ROBLES; Caller Number: , Thor Newman, *Based on your response below, can you please update the chronic problem list and address during this visit if appropriate?* During a pre-visit planning chart review, I noted the following documentation in the medical record: All previous this visit problems- COPD 11/22/2023 pulm-This is 68-year-old man with past medical history significant for morbid obesity, congestive heart failure, diabetes, atrial fibrillation, congestive heart failure 1. COPD mixed type (J44.9: Chronic obstructive pulmonary disease, unspecified) I will obtain pulmonary function test and 6-minute walk test as well as evaluation for nocturnal oxygen. I will obtain chest x-ray. I would restart Dulera and continue albuterol as needed. Obtain chest x-ray 12/02/2023 transfer in document- COPD 12/02/2023 PFT-IMPRESSION: There is mixed obstructive and restrictive lung disease. 01/08/2024 pulm- 1. COPD mixed type (J44.9: Chronic obstructive pulmonary disease, unspecified) 2. Restrictive lung disease (J98.4: Other disorders of lung) His dyspnea is multifactorial he does have component of COPD will continue Dulera, his restriction is likely related to body habitus and its only mild his total lung capacity 70% and his lung diffusion capacity is normal which is against interstitial lung disease. I suspect that there is a cardiac component and deconditioning. Continue Dulera. Chest x-ray will be done today Based on your medical judgment, can you please further clarify the diagnosis related to the above diagnostic results? -COPD -Restrictive lung disease -Other (Please Specify): I can update the problem list with your specified response if you would like. In responding to this request, please exercise your independent professional judgement. The fact that a question is asked does not imply that any particular answer is desired or expected. If you have any questions, please feel free to contact me at extension [phone]. Thank you! Tiff Romero, ZACHARYN, RN, CCM, CCDS, CCDS-O CDI [employer] [address] [address] P: [phone] F: [phone] [email or web address] Normal [facility] Pre-Visit Planning Pre-Visit Planning From: Heather AREVALO, Tiff To: Paty Guevara; Sent: 05/15/2024 14:26:34 EST Subject: Pre-Visit Planning Due Date/Time: 05/15/2024 14:26:00 EST Caller Name: HUANG ROBLES; Caller Number: , Thor Newman, *Based on your response below, can you please update the chronic problem list and address during this visit if appropriate?* During a pre-visit planning chart review, I noted the following documentation in the medical record: All Previous This visit problem list- Acute on chronic diastolic heart failure 12/02/2023 transfer in document- COPD, chf 11/22/2023 pulm-This is 68-year-old man with past medical history significant for morbid obesity, congestive heart failure, diabetes, atrial fibrillation, congestive heart failure 2. CHF (congestive heart failure) (I50.9: Heart failure, unspecified) His cardiac disease is also contributing to his dyspnea on exertion and he is managed by cardiology 01/15/2024 dc summary- acute systolic chf Based on your medical judgment, can you further clarify the following since there is conflicting data on specification of congestive heart failure? -Chronic diastolic heart failure -Chronic systolic heart failure -Other (please specify): I can update the problem list with your specified response if you would like. In responding to this request, please exercise your independent professional judgement. The fact that a question is asked does not imply that any particular answer is desired or expected. If you have any questions, please feel free to contact me at extension [phone]. Thank you! Tiff Romero, ZACHARYN, RN, CCM, CCDS, CCDS-O CDI [employer] [address] [address] P: [phone] F: [phone] [email or web address] Normal [facility] Pre-Visit Planning Pre-Visit Planning From: Heather AREVALO, Tiff To: Paty Guevara; Sent: 05/15/2024 14:16:25 EST Subject: Pre-Visit Planning Due Date/Time: 05/15/2024 14:16:00 EST Caller Name: HUANG ROBLES; Caller Number: Bj , M Thor Newman, *Based on your response below, can you please update the chronic problem list and address during this visit if appropriate?* During a pre-visit planning chart review, I noted the following documentation in the medical record: Problem list- Depression 03/12/2024 office note-Patient admits to some signs or symptoms of depression at this time. 8 minutes spent with screening and documentation. PHQ2 screening score 0. PHQ9 screening 9. 6. Depression (F32.9: Major depressive disorder, single episode, unspecified) Patient is not on depression medication at this time. PHQ-9 risk assessment completed with positive findings. Total risk score is 9. Patient denies any suicidal ideations at this time. Reviewed additional signs/symptoms to monitor for and report to provider. Based on your medical judgment, can you please further specify if the depression listed on the problem list is still mild? Major Depressive Disorder, Recurrent ??? Major depressive disorder, recurrent, mild ??? Major depressive disorder, recurrent, moderate ??? Major depressive disorder, recurrent, severe without mention of psychotic behavior ??? Major depressive disorder, recurrent, in partial remission ??? Major depressive disorder, recurrent, in full remission ??? Other (Please Specify): I can update the problem list with your specified response if you would like. In responding to this request, please exercise your independent professional judgement. The fact that a question is asked does not imply that any particular answer is desired or expected. If you have any questions, please feel free to contact me at extension [phone]. Thank you! Tiff Romero, BSN, RN, CCM, CCDS, CCDS-O CDI [employer] [address] [address] P: [phone] F: [phone] [email or web address] Normal [facility] Family Medicine Office/Clini c Noteon 05-14-2024 Family Medicine Office/Clinic Note Family Medicine Office/Clinic Note [facility] Staff Huang is a 68 year old male presenting with still not feeling well HITESH tx'd with z nacho and tessalon pearls- a few days later sx came back still coughing, sore throat, runny nose OTC cough syrup History of Present Illness pt presents today with continued cough. was prescribed Levaquin and Medrol dose pack on Saturday but didn't pick it up Review of Systems PHQ Score Initial Depression Screen Score: 0 SCORE Physical Exam Vitals & Measurements T: 36.1 ???C(Oral) HR: 76(Peripheral) RR: 18 BP: 124/88 SpO2: 97% HT: 69 in HT: 174.0 cm WT: 121.9 kg WT: 268.743 lb BMI: 40.26 General: alert, no acute distress ENMT: oral mucosa moist, no pharyngeal erythema or exudate Cardiovascular: regular rate and rhythm, normal peripheral perfusion Respiratory: Lungs expiratory wheezes, respirations non labored Extremities: no deformity, no trauma Neurological: oriented x 4, LOC appropriate for age, CN II-XII intact, motor strength equal & normal bilaterally, speech normal Assessment/Plan 1. Cough (R05.9: Cough, unspecified) pt presents today with continued cough. pt states I can't even sleep because i'm coughing so much. pt was prescribed levaquin and medrol dose pack on saturday but did not pick it up. 2. Wheeze (R06.2: Wheezing) prescribed medrol dose pack on Saturday. 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 Non-smoker (Z78.9: Other specified health status) continue not smoking 4. BMI 40.0-44.9, adult (Z68.41: Body mass index [BMI] 40.0-44.9, adult) BMI education 5. Morbid exogenous obesity (E66.01: Morbid (severe) obesity due to excess calories) see above Follow-up No qualifying data available Problem List/Past Medical History Ongoing Anticoagulated Atrial fibrillation BMI 40.0-44.9, adult BPH with urinary obstruction Chronic GERD Cough Depression Diabetes Establishing care with new doctor, encounter for Family history of prostate cancer Fluid retention Forgetfulness Hypertension Morbid obesity Nocturia Non-ST elevated myocardial infarction (non-STEMI) 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 Shortness of breath Type 2 diabetes mellitus Urge incontinence Urinary frequency Urinary urgency Wheeze Wheezing Historical BMI 45.0-49.9, adult Procedure/Surgical History Colonoscopy (05/13/2019), Laparoscopic cholecystectomy (04/03/2019), TURP - Transurethral resection of prostate (12/15/2015), Urodynamics (11/02/2015), Total hip replacement (09/08/2015), left total knee arhroplasty (05/10/2015), right total knee arthroplasty (02/22/2015), Cataract, Endoscopic retrograde cholangiopancreatography (ERCP) not completed due to anatomical derangements from previous surgery, Placement of stent in cardiac conduit, Rotator cuff repair, Tonsillectomy. Medications Albuterol (Eqv-Ventolin HFA) 90 mcg/inh inhalation aerosol, See Instructions atorvastatin, 80 mg, Oral, Bedtime bumetanide 1 mg Tab clopidogrel, 75 mg, Oral, Daily Dulera 100 mcg-5 mcg/inh inhalation aerosol, 2 puff(s), Inhalation, BID, 11 refills Dulera 100 mcg-5 mcg/inh inhalation aerosol, 2 puff(s), Inhalation, BID Eliquis, 5 mg, Oral, BID Farxiga 10 mg oral tablet, 10 mg, Oral, Daily, 1 refills freestyle marshal 2 sensors, See Instructions, 6 refills Freestyle Marshal 3 Flash Glucose Monitoring 14 Day System (Sensor), See Instructions, 1 refills Freestyle Marshal 3 sensors, See Instructions, 1 refills Levaquin 750 mg Tab, 750 mg= 1 tab(s), Oral, Daily magnesium oxide, 500 mg, Oral, Daily Medrol 4 mg Tab, 1 packet(s), Oral, As Directed MetFORMIN (Eqv-Glucophage XR) 500 mg oral tablet, extended release, See Instructions, 1 refills nitroglycerin, 0.4 mg, SubLingual, q5min, PRN potassium chloride, 10 mEq, Oral, Daily PreserVision AREDS 2, Chewed, BID Refresh, 1 drop(s), Eye-Both, PRN spironolactone 25 mg Tab, 25 mg= 1 tab(s), Oral, Daily tolterodine 4 mg Cap-ER, 4 mg= 1 cap(s), Oral, Daily, 3 refills Toprol-XL, 25 mg, Oral, Daily valsartan, 40 mg, Oral, Daily Vitamin B12, 1000 mcg, Oral, Daily Vitamin C 500 mg Tab, 500 mg= 1 tab(s), Oral, Daily Allergies No Known Allergies Social History Alcohol - Denies Alcohol Use, 01/31/2015 Never., 05/04/2024 Substance Abuse - Denies Substance Abuse, 01/31/2015 Never., 05/04/2024 Tobacco - Denies Tobacco Use, 01/31/2015 Never (less than 100 in lifetime) Tobacco Use:. Never Smokeless Tobacco Use:. Cigarettes, 05/14/2024 Family History COPD: Sister. Cardiac arrhythmia: Brother. Diabetes mellitus type 2: Mother. Heart failure: Mother. Hyperthyroidism: Mother. Metastatic cancer: Father and Brother. Stroke: Mother. Immunizations Vaccine Date Status Comments influenza virus vaccine, inactivated - Not Given Patient Refuses SARS-CoV-2 (COVID-19) mRNA BNT-162b2 vax 03/24/2021 Recorded SARS-CoV-2 (COVID-19) mRNA BNT-162b2 vax 09/09/2020 Recorded SARS-CoV-2 (COVID-19) mRNA BNT-162b2 vax 08/19/2020 Recorded influenza virus vaccin (more content not included)... Normal [facility] Comment on above: Result Comment: Elec tronically Signed By: Paty Guevara\.br\Date and Time Signed: 05/14/24 14:43 EST Family Medicine Office/Clini c Noteon 05-05-2024 Family Medicine Office/Clinic Note Family Medicine Office/Clinic Note HPI Staff Patient here for cold symptoms Onset starred last night Headache: no Body aches: no Earache: no Runny/stuffy nose: runny, stuffy when he lays down Sore throat: no Cough: yes Scratchy tickle throat: no Chest symptoms: no Lung Hx - asthma, bronchitis, chest colds: Fever/chills: no GI symptoms: no Remedies tried: OTC cough medicine does help a little Needs refills on Dulera History of Present Illness pt presents today with URI symptoms. Review of Systems PHQ Score Initial Depression Screen Score: 0 SCORE Physical Exam Vitals & Measurements T: 36.4 ???C(Oral) HR: 66(Peripheral) RR: 18 BP: 128/82 SpO2: 99% HT: 69 in HT: 174.0 cm WT: 120.6 kg WT: 265.877 lb BMI: 39.83 General: alert, no acute distress ENMT: oral mucosa moist, no pharyngeal erythema or exudate Cardiovascular: regular rate and rhythm, normal peripheral perfusion Respiratory: Lungs expiratory wheezes, respirations non labored Extremities: no deformity, no trauma Neurological: oriented x 4, LOC appropriate for age, CN II-XII intact, motor strength equal & normal bilaterally, speech normal Assessment/Plan 1. Cough (R05.9: Cough, unspecified) pt c/o worsening cough. will treat with z nacho and tesjae peartorres Ordered: azithromycin, = 1 packet(s), Oral, As Directed, as directed on package labeling, X 5 day(s), # 6 tab(s), Refills(s) 0, Pharmacy: [facility]/pharm[facility] #[id number], 174, cm, 05/04/24 15:26:00 EST, Height/Length Dosing, 120.6, kg, 05/04/24 15:26:00 EST, Weight Dosing benzonatate, 200 mg = 1 cap(s), Oral, TID, X 7 day(s), # 21 cap(s), Refills(s) 0, [id number] 174, cm, 05/04/24 15:26:00 EST, Height/Length Dosing, 120.6, kg, 05/04/24 15:26:00 EST, Weight Dosing 2. Wheezing (R06.2: Wheezing) wheezing on exam Ordered: azithromycin, = 1 packet(s), Oral, As Directed, as directed on package labeling, X 5 day(s), # 6 tab(s), Refills(s) 0, [id number], 174, cm, 05/04/24 15:26:00 EST, Height/Length Dosing, 120.6, kg, 05/04/24 15:26:00 EST, Weight Dosing benzonatate, 200 mg = 1 cap(s), Oral, TID, X 7 day(s), # 21 cap(s), Refills(s) 0, Pharmacy: [facility] #[id number], 174, cm, 05/04/24 15:26:00 EST, Height/Length Dosing, 120.6, kg, 05/04/24 15:26:00 EST, Weight Dosing 3. Non-smoker (Z78.9: Other specified health status) continue not smoking Ordered: azithromycin, = 1 packet(s), Oral, As Directed, as directed on package labeling, X 5 day(s), # 6 tab(s), Refills(s) 0, [id number], 174, cm, 05/04/24 15:26:00 EST, Height/Length Dosing, 120.6, kg, 05/04/24 15:26:00 EST, Weight Dosing benzonatate, 200 mg = 1 cap(s), Oral, TID, X 7 day(s), # 21 cap(s), Refills(s) 0, [id number], 174, cm, 05/04/24 15:26:00 EST, Height/Length Dosing, 120.6, kg, 05/04/24 15:26:00 EST, Weight Dosing 4. BMI 39.0-39.9,adult (Z68.39: Body mass index [BMI] 39.0-39.9, adult) BMI education given Ordered: azithromycin, = 1 packet(s), Oral, As Directed, as directed on package labeling, X 5 day(s), # 6 tab(s), Refills(s) 0, [id number] 174, cm, 05/04/24 15:26:00 EST, Height/Length Dosing, 120.6, kg, 05/04/24 15:26:00 EST, Weight Dosing benzonatate, 200 mg = 1 cap(s), Oral, TID, X 7 day(s), # 21 cap(s), Refills(s) 0, [id number], 174, cm, 05/04/24 15:26:00 EST, Height/Length Dosing, 120.6, kg, 05/04/24 15:26:00 EST, Weight Dosing 5. 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: Other obesity due to excess calories) see above Ordered: azithromycin, = 1 packet(s), Oral, As Directed, as directed on package labeling, X 5 day(s), # 6 tab(s), Refills(s) 0, [id number], 174, cm, 05/04/24 15:26:00 EST, Height/Length Dosing, 120.6, kg, 05/04/24 15:26:00 EST, Weight Dosing benzonatate, 200 mg = 1 cap(s), Oral, TID, X 7 day(s), # 21 cap(s), Refills(s) 0, [id number], 174, cm, 05/04/24 15:26:00 EST, Height/Length Dosing, 120.6, kg, 05/04/24 15:26:00 EST, Weight Dosing Orders: formoterol-mometasone, 2 puff(s), Inhalation, BID, 13 gram, Refill(s) 0, [facility]/pharmacy #[id number], 174, cm, 05/04/24 15:26:00 EST, Height/Length Dosing, 120.6, kg, 05/04/24 15:26:00 EST, Weight Dosing Follow-up No qualifying data available Problem List/Past Medical History Ongoing Anticoagulated Atrial fibrillation BMI 40.0-44.9, adult BPH with urinary obstruction Chronic GERD Cough Depression Diabetes Establishing care with new doctor, encounter for Family history of prostate cancer Fluid retention Forgetfulness Hypertension Morbid obesity Nocturia Non-ST elevated myocardial infarction (non-STEMI) 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 Shortness of breath Type 2 diabetes mellitus Urge incontinence Urinary frequency Urinary urgency Wheezing Historical BMI 45.0-49.9, adult Procedure/Surgical History Colonoscopy (05/13/2019), Laparoscopic cholecystectomy (04/03/2019), TURP - Transurethral resection of prostate ( (more content not included)... 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 Referral Reason: Disease management Case Type: Chronic Care Management Risk Score: -- Case Status: Enrolled (February 26, 2024) Date Assigned: February 10, 2024 Assigned By: Wayne Nunes Date Enrolled: February 26, 2024 Assigned Primary Personnel: Wayne Nunes Assigned Secondary Personnel: -- Case Physician: Paty Guevara Problems Ongoing Anticoagulated Atrial fibrillation BMI 40.0-44.9, adult BPH with urinary obstruction Chronic GERD Depression Diabetes Establishing care with new doctor, encounter for Family history of prostate cancer Fluid retention Forgetfulness Hypertension Morbid obesity Nocturia Non-ST elevated myocardial infarction (non-STEMI) 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 Shortness of breath Type 2 diabetes mellitus Urge incontinence Urinary frequency Urinary urgency Historical BMI 45.0-49.9, adult Procedure/Surgical History Colonoscopy (05/13/2019), Laparoscopic cholecystectomy (04/03/2019), TURP - Transurethral resection of prostate (12/15/2015), Urodynamics (11/02/2015), Total hip replacement (09/08/2015), left total knee arhroplasty (05/10/2015), right total knee arthroplasty (02/22/2015), Cataract, Endoscopic retrograde cholangiopancreatography (ERCP) not completed due to anatomical derangements from previous surgery, Placement of stent in cardiac conduit, Rotator cuff repair, Tonsillectomy. Home Medications Albuterol (Eqv-Ventolin HFA) 90 mcg/inh inhalation aerosol, See Instructions atorvastatin, 80 mg, Oral, Bedtime bumetanide 1 mg Tab clopidogrel, 75 mg, Oral, Daily Dulera 100 mcg-5 mcg/inh inhalation aerosol, 2 puff(s), Inhalation, BID, 11 refills Eliquis, 5 mg, Oral, BID Farxiga 10 mg oral tablet, 10 mg, Oral, Daily, 1 refills freestyle marshal 2 sensors, See Instructions, 6 refills Freestyle Marshal 3 Flash Glucose Monitoring 14 Day System (Sensor), See Instructions, 1 refills Freestyle Marshal 3 sensors, See Instructions, 1 refills magnesium oxide, 500 mg, Oral, Daily MetFORMIN (Eqv-Glucophage XR) 500 mg oral tablet, extended release, See Instructions nitroglycerin, 0.4 mg, SubLingual, q5min, PRN potassium chloride, 10 mEq, Oral, Daily PreserVision AREDS 2, Chewed, BID Refresh, 1 drop(s), Eye-Both, PRN spironolactone 25 mg Tab, 25 mg= 1 tab(s), Oral, Daily tolterodine 4 mg Cap-ER, 4 mg= 1 cap(s), Oral, Daily, 3 refills, Pre-arrival medication Toprol-XL, 25 mg, Oral, Daily valsartan, 40 mg, Oral, Daily Vitamin B12, 1000 mcg, Oral, Daily Vitamin C 500 mg Tab, 500 mg= 1 tab(s), Oral, Daily Allergies No Known Allergies Social History Alcohol - Denies Alcohol Use, 01/31/2015 Substance Abuse - Denies Substance Abuse, 01/31/2015 Tobacco - Denies Tobacco Use, 01/31/2015 Never (less than 100 in lifetime) Tobacco Use:. Never Smokeless Tobacco Use:. Cigarettes, Household tobacco concerns: No. Yes, 03/12/2024 Family History COPD: Sister. Cardiac arrhythmia: Brother. Diabetes mellitus type 2: Mother. Heart failure: Mother. Hyperthyroidism: Mother. Metastatic cancer: Father and Brother. Stroke: Mother. Screenings and Assessments 03/24/24 12:49:00 Result Name Value Comment Phone Call Monitoring Consent Agreed to continue call Phone Verification Patient Information Full name, street address and date of verified CM Program Enrollment Provides verbal consent for enrollment CCM Written Consent Written consent obtained 02/26/24 08:35:00 Result Name Value Comment CCM Program Enrollment Verbally agreed to receive CCM services CCM Verbal Consent By Self 02/25/24 10:00:00 Result Name Value Comment HIPPA Verified Type of Contact In person at home Information Given by Self CM Preferred Spoken Language Angolan CM Preferred Written Language Angolan Preferred Communication Mode Verbal Ability to Read/Write Able to read, Able to write CM Caregiver's Preferred Spoken Language Angolan CM Caregivers Preferred Written Language Angolan Software Developer Intern Called No Preferred Method of Contact Cell Cell Best Time to Visit or Contact 7-10 am Best Day to Visit or Contact No preference Appointment Reminders Phone, Other secured messaging Preferred Way to Send PHI Other secured messaging Preferred Mailing Address [address] [place] [address] Learning Style Pref Patient Video/Educational TV Learning Style Pref Parent/Guardian Video/Educational TV Teaching Method Teach-back, Video/Educational TV Barriers to Learning None evident hard to hear if (more content not included)... Normal [facility] ISTAT XRay CREon 04-07-2024 ISTAT GFR > 60.0 Normal [facility] Comment on above: Result Comment: PERF ORMED BY: [place] [address] PATHOLOGIST BALLISTICS PROFESSOR DEENA ESCOBAR M.D. Performed By: #### I SCRE #### [address] MR head/brain wo/w [facility] MR head/brain wo/w [facility] [place] [address] MRI Report Signed Patient: Huang Robles MR#: [id number] 82 : 1955 Acct:[id number] Age/Sex: 68 / M ADM Date: 04/07/24 Loc: MR Room: Type: [facility] Attending Dr: Avi Padgett DO Copies to: Avi Padgett DO Ordering Provider: Avi Padgett DO Date of Service: 04/07/24 MR/MR head/brain wo/w con: R41.3 MR head/brain wo/w con 04/07/2024 9:17 AM SIGN AND SYMPTOMS: Memory loss PROTOCOL: Multiplanar multisequence MR images of the brain were obtained with and without IV contrast CONTRAST: 20 mL of intravenous ProHance COMPARISON: None. FINDINGS: Extra axial spaces: There is age-related cortical atrophy. Atrophy is focally greater along the medial aspect of the left temporal lobe. Hemorrhage: None. Ventricular system: There is absence of the septum pellucidum. The ventricles are colpocephalic. Basal cisterns: Within normal limits and not effaced. Cerebral parenchyma: There is agenesis of the corpus callosum. Scattered areas of periventricular and subcortical white matter T2 and T2 FLAIR hyperintense signal are noted consistent with chronic microvascular ischemic change. Midline shift: None.. Cerebellum: Within normal limits. Brainstem: Within normal limits. OTHER: Calvarium: Normal marrow signal. Vascular system: Satisfactory flow voids within the anterior and posterior circulation. Visualized Paranasal sinuses: Within normal limits. Visualized Orbits: Within normal limits. Visualized upper cervical spine: Within normal limits. Sella and skull base: Within normal limits. MR/MR head/brain wo/w con IMPRESSION: No acute intracranial pathology or abnormal postcontrast enhancement. There is age-related cortical atrophy. Atrophy is focally greater along the medial aspect of the left temporal lobe. Chronic microvascular ischemic changes are noted. 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 The ventricles are colpocephalic. Impression dictated by: Chad Winter M.D.04/07/2024 12:57 PM Dictation Location: [place] [address] Transcribed By: [facility] 04/07/24 1257 Dictated By: Chad Winter II, MD 04/07/24 1241 Signed By: 04/07/24 1257 Normal [facility] No Panel InformationOrdered By: Avi Padgett on 04-07-2024 Bedside Estimated GFR (eGFR) > 60.0 [facility] Whole blood creatinine measu rementOrdered By: Avi Padgett on 04-07-2024 Creatinine [Mass/Vol] 1.1 mg/dL Normal 0.6-1.3 [facility] Comment on above: ER/ESD physician is notified/shown all ISTAT results.Critical values may be confirmed by laboratory testing ifdeemed necessary by ER attending doctor. Result Comment: ER/E SD physician is notified/shown all ISTAT results. Critical values may be confirmed by laboratory testing if deemed necessary by ER attending doctor. 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 Operator Referral Reason: Disease management Case Type: Chronic Care Management Risk Score: -- Case Status: Enrolled (February 26, 2024) Date Assigned: February 10, 2024 Assigned By: Wayne Nunes Date Enrolled: February 26, 2024 Assigned Primary Personnel: Wayne Nunes Assigned Secondary Personnel: -- Case Physician: Paty Guevara Problems Ongoing Anticoagulated Atrial fibrillation BMI 40.0-44.9, adult BPH with urinary obstruction Chronic GERD Depression Diabetes Establishing care with new doctor, encounter for Family history of prostate cancer Fluid retention Forgetfulness Hypertension Morbid obesity Nocturia Non-ST elevated myocardial infarction (non-STEMI) 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 Shortness of breath Type 2 diabetes mellitus Urge incontinence Urinary frequency Urinary urgency Historical BMI 45.0-49.9, adult Procedure/Surgical History Colonoscopy (05/13/2019), Laparoscopic cholecystectomy (04/03/2019), TURP - Transurethral resection of prostate (12/15/2015), Urodynamics (11/02/2015), Total hip replacement (09/08/2015), left total knee arhroplasty (05/10/2015), right total knee arthroplasty (02/22/2015), Cataract, Endoscopic retrograde cholangiopancreatography (ERCP) not completed due to anatomical derangements from previous surgery, Placement of stent in cardiac conduit, Rotator cuff repair, Tonsillectomy. Home Medications Albuterol (Eqv-Ventolin HFA) 90 mcg/inh inhalation aerosol, See Instructions atorvastatin, 80 mg, Oral, Bedtime bumetanide 1 mg Tab clopidogrel, 75 mg, Oral, Daily Dulera 100 mcg-5 mcg/inh inhalation aerosol, 2 puff(s), Inhalation, BID, 11 refills Eliquis, 5 mg, Oral, BID Farxiga 10 mg oral tablet, 10 mg, Oral, Daily, 1 refills freestyle marshal 2 sensors, See Instructions, 6 refills Freestyle Marshal 3 Flash Glucose Monitoring 14 Day System (Sensor), See Instructions, 1 refills Freestyle Marshal 3 sensors, See Instructions, 1 refills magnesium oxide, 500 mg, Oral, Daily MetFORMIN (Eqv-Glucophage XR) 500 mg oral tablet, extended release, See Instructions nitroglycerin, 0.4 mg, SubLingual, q5min, PRN potassium chloride, 10 mEq, Oral, Daily PreserVision AREDS 2, Chewed, BID Refresh, 1 drop(s), Eye-Both, PRN spironolactone 25 mg Tab, 25 mg= 1 tab(s), Oral, Daily tolterodine 4 mg Cap-ER, 4 mg= 1 cap(s), Oral, Daily, 3 refills, Pre-arrival medication Toprol-XL, 25 mg, Oral, Daily valsartan, 40 mg, Oral, Daily Vitamin B12, 1000 mcg, Oral, Daily Vitamin C 500 mg Tab, 500 mg= 1 tab(s), Oral, Daily Allergies No Known Allergies Social History Alcohol - Denies Alcohol Use, 01/31/2015 Substance Abuse - Denies Substance Abuse, 01/31/2015 Tobacco - Denies Tobacco Use, 01/31/2015 Never (less than 100 in lifetime) Tobacco Use:. Never Smokeless Tobacco Use:. Cigarettes, Household tobacco concerns: No. Yes, 03/12/2024 Family History COPD: Sister. Cardiac arrhythmia: Brother. Diabetes mellitus type 2: Mother. Heart failure: Mother. Hyperthyroidism: Mother. Metastatic cancer: Father and Brother. Stroke: Mother. Screenings and Assessments 03/24/24 12:49:00 Result Name Value Comment Phone Call Monitoring Consent Agreed to continue call Phone Verification Patient Information Full name, street address and date of verified CM Program Enrollment Provides verbal consent for enrollment CCM Written Consent Written consent obtained 02/26/24 08:35:00 Result Name Value Comment CCM Program Enrollment Verbally agreed to receive CCM services CCM Verbal Consent By Self 02/25/24 10:00:00 Result Name Value Comment HIPPA Verified Type of Contact In person at home Information Given by Self CM Preferred Spoken Language Angolan CM Preferred Written Language Angolan Preferred Communication Mode Verbal Ability to Read/Write Able to read, Able to write CM Caregiver's Preferred Spoken Language Angolan CM Caregivers Preferred Written Language Angolan Software Developer Intern Called No Preferred Method of Contact Cell Cell Best Time to Visit or Contact 7-10 am Best Day to Visit or Contact No preference Appointment Reminders Phone, Other secured messaging Preferred Way to Send PHI Other secured messaging Preferred Mailing Address [address] [place] [address] Learning Style Pref Patient Video/Educational TV Learning Style Pref Parent/Guardian Video/Educational TV Teaching Method Teach-back, Video/Educational TV Barriers to Learning None evident hard to hear if (more content not included)... Normal [facility] .Interpretation:on HCV Ab IA Ql Comment Invalid Interpretation Code [facility] Comment on above: Result Comment: Not infected with HCV unless early or acute infection is suspected (which may be delayed in an immunocompromised individual), or other evidence exists to indicate HCV infection. Performed at: [facility] [address] [id number] PhD Foreign Velazquez Performed By: #### 2 [id number] #### [facility] [address] [place] [address] HCV Antibody RFX to Quant PC Carlos 03-15-2024 HCV IgG IA Ql Non-Reactive Invalid Interpretation Code Non Reactive [facility] Comment on above: Result Comment: Perf ormed at: [facility] [address] [id number] PhD Foreign Velazquez Performed By: #### 2 [id number] #### [facility] [address] [place] [address] CHEMISTRYOrdered By: Willy Hardy on 03-13-2024 Albumin DL <= 20 mg/L (U) [Mass/Vol] mg/dL Normal 0.0 - 1.9 mg/dL [facility] Albumin/Creatinine DL <= 20 mg/L (U) [Mass ratio] NOT CALCULATED Invalid Interpretation Code 0.0 - 30.0 [facility] Comment on above: Interpretive Data: 3 0-300 mg/g Cr indicates an increased risk for diabetic nephropathy. >300 mg/g Cr is consistent with clinical nephropathy. U Creatinine 96.8 mg/dL Invalid Interpretation Code [facility] CHEMISTRYOrdered By: SYSTEM SYSTEM on 03-13-2024 Albumin [Mass/Vol] 4.2 g/dL Normal 3.3 - 5.0 gm/dL [facility] Albumin/Globulin [Mass ratio] 1.8 {ratio} Normal 1.1 - 2.2 [facility] ALP [Catalytic activity/Vol] 67 [iU]/d Normal 21 - 98 Int._Unit/ L [facility] ALT No additional P-5'-P [Catalytic activity/Vol] 15 [iU]/d Normal 6 - 46 Int._Unit/ L [facility] Anion gap [Moles/Vol] 13 mmol/L Normal 6 - 16 mEq/L [facility] AST [Catalytic activity/Vol] 15 [iU]/d Normal 5 - 43 Int._Unit/ L [facility] Bilirubin [Mass/Vol] 1.9 mg/dL High 0.0 - 1 .1 mg/dL [facility] Calcium [Mass/Vol] 8.9 mg/dL Normal 8.9 - 11. 1 mg/dL [facility] Chloride [Moles/Vol] 101 mmol/L Normal 101 - 1 11 mmol/L [facility] Cholesterol [Mass/Vol] 68 mg/dL Low 120 - 200 mg/dL [facility] Cholesterol in HDL [Mass/Vol] 30 mg/dL Invalid Interpretation Code [facility] Comment on above: Result Comment: '>= 60 LOW RISK' '<= 40 HIGH RISK' Cholesterol in LDL [Mass/Vol] 36 mg/dL Normal <=129mg/dL [facility] Cholesterol in VLDL [Mass/Vol] 14 mg/dL Normal 7 - 40 mg/dL [facility] CO2 [Moles/Vol] 26 mmol/L Normal 21 - 31 mmol/L [facility] Creatinine [Mass/Vol] 0.8 mg/dL Normal 0.5 - 1.3 mg/dL [facility] eGFR 96 mL/min/1.73 m2 Normal >=59mL/min /1.73 m2 [facility] Globulin (S) [Mass/Vol] 2.4 g/dL Normal 1.4 - 4.0 gm/dL [facility] Glucose [Mass/Vol] 133 mg/dL Normal 55 - 199 mg/dL [facility] Potassium [Moles/Vol] 4.5 mmol/L Normal 3.5 - 5.3 mmol/L [facility] Protein [Mass/Vol] 6.6 g/dL Normal 6.0 - 7.8 gm/dL [facility] Sodium [Moles/Vol] 135 mmol/L Normal 135 - 145 mmol/L [facility] Triglyceride [Mass/Vol] 69 mg/dL Normal <=149mg/dL [facility] Urea nitrogen [Mass/Vol] 12 mg/dL Normal 5 - 21 mg/dL [facility] Urea nitrogen/Creatinine [Mass ratio] 15 mg/mg Normal 10 - 20 [facility] CHEMISTRYOrdered By: Robin costa on 03-13-2024 HbA1c (Bld) [Mass fraction] 5.9 % Normal <=5.9% [facility] ChemAutoSS CMPon 03-13-2024 Albumin [Mass/Vol] 4.2 g/dL Normal 3.3-5.0 [facility] Comment on above: Performed By: #### 2 [id number] #### [facility] [address] [place] [address] Albumin/Globulin (S) [Mass conc ratio] 1.8 Normal 1.1-2.2 [facility] Comment on above: Performed By: #### 2 [id number] #### [facility] [address] [place] [address] ALP [Catalytic activity/Vol] 67 Int._Unit/L Normal 21-98 [facility] Comment on above: Performed By: #### 2 [id number] #### [facility] [address] [place] [address] ALT No additional P-5'-P [Catalytic activity/Vol] 15 Int._Unit/L Normal 6-46 [facility] Comment on above: Performed By: #### 2 [id number] #### [facility] [address] [place] [address] Anion gap [Moles/Vol] 13 mmol/L Normal 6-16 [facility] Comment on above: Performed By: #### 2 [id number] #### [facility] [address] [place] [address] AST [Catalytic activity/Vol] 15 Int._Unit/L Normal 5-43 [facility] Comment on above: Performed By: #### 2 [id number] #### [facility] [address] [place] [address] Bilirubin [Mass/Vol] 1.9 mg/dL High 0.0-1.1 [facility] Comment on above: Performed By: #### 2 [id number] #### [facility] [address] [place] [address] Calcium [Mass/Vol] 8.9 mg/dL Normal 8.9-11.1 [facility] Comment on above: Performed By: #### 2 [id number] #### [facility] [address] [place] [address] Chloride [Moles/Vol] 101 mmol/L Normal 101-111 [facility] Comment on above: Performed By: #### 2 [id number] #### [facility] [address] [place] [address] CO2 [Moles/Vol] 26 mmol/L Normal 21-31 [facility] Comment on above: Performed By: #### 2 [id number] #### [facility] [address] [place] [address] Creatinine [Mass/Vol] 0.8 mg/dL Normal 0.5-1.3 [facility] Comment on above: Performed By: #### 2 [id number] #### [facility] [address] [place] [address] Globulin (S) [Mass/Vol] 2.4 g/dL Normal 1.4-4.0 [facility] Comment on above: Performed By: #### 2 [id number] #### [facility] [address] [place] [address] Glucose [Mass/Vol] 133 mg/dL Normal 55-199 [facility] Comment on above: Performed By: #### 2 [id number] #### [facility] [address] [place] [address] Potassium [Moles/Vol] 4.5 mmol/L Normal 3.5-5.3 [facility] Comment on above: Performed By: #### 2 [id number] #### [facility] [address] [place] [address] Protein [Mass/Vol] 6.6 g/dL Normal 6.0-7.8 [facility] Comment on above: Performed By: #### 2 [id number] #### [facility] [address] [place] [address] Sodium [Moles/Vol] 135 mmol/L Normal 135-145 [facility] Comment on above: Performed By: #### 2 [id number] #### [facility] [address] [place] [address] Urea nitrogen [Mass/Vol] 12 mg/dL Normal 5-21 [facility] Comment on above: Performed By: #### 2 [id number] #### [facility] [address] [place] [address] Urea nitrogen/Creatinine [Mass ratio] 15 No Units Normal 10-20 [facility] Comment on above: Performed By: #### 2 [id number] #### [facility] [address] [place] [address] [id number] 03-13-2024 HbA1c (Bld) [Mass fraction] 5.9 % Normal <=5.9 [facility] Comment on above: Performed By: #### 7 [id number] #### [facility] [address] [place] [address] Lipid Panelon 03-13-2024 Cholesterol [Mass/Vol] 68 mg/dL Low 120-200 [facility] Comment on above: Performed By: #### 2 [id number] #### [facility] [address] [place] [address] Cholesterol in HDL [Mass/Vol] 30 mg/dL Invalid Interpretation Code [facility] Comment on above: Result Comment: '>= 60 LOW RISK' '<= 40 HIGH RISK' Performed By: #### 2 [id number] #### [facility] [address] [place] [address] Cholesterol in LDL [Mass/Vol] 36 mg/dL Normal <=129 [facility] Comment on above: Performed By: #### 2 [id number] #### [facility] [address] [place] [address] Cholesterol in VLDL [Mass/Vol] 14 mg/dL Normal 7-40 [facility] Comment on above: Performed By: #### 2 [id number] #### [facility] [address] [place] [address] Triglyceride [Mass/Vol] 69 mg/dL Normal <=149 [facility] Comment on above: Performed By: #### 2 [id number] #### [facility] [address] [place] [address] U MA/Cr Ratioon 03-13-2024 Albumin DL <= 20 mg/L (U) [Mass/Vol] mg/dL Normal 0.0-1.9 [facility] Comment on above: Performed By: #### 1 [id number] #### [facility] [address] [place] [address] Albumin/Creatinine DL <= 20 mg/L (U) [Mass ratio] NOT CALCULATED Invalid Interpretation Code .0-30.0 [facility] Comment on above: Result Comment: 30-3 00 mg/g Cr indicates an increased risk for diabetic nephropathy. >300 mg/g Cr is consistent with clinical nephropathy. Performed By: #### 1 [id number] #### [facility] [address] [place] [address] U Creatinine 96.8 mg/dL Invalid Interpretation Code [facility] Comment on above: Performed By: #### 1 [id number] #### [facility] [address] [place] [address] eGFRon 03-13-2024 eGFR 96 mL/min/1.73 m2 Normal >=59 [facility] Comment on above: Performed By: #### 1 [id number] #### [facility] [address] [place] [address] Ambulatory Visit Summaryon 0 03-12-2024 Ambulatory Visit Summary Ambulatory Visit Summary HUANG ROBLES :1955 Visit Date:03/12/2024 Ambulatory Visit Instructions Your Diagnosis Medicare annual wellness visit, initial Type 2 diabetes mellitus Non-ST elevated myocardial infarction (non-STEMI) Morbid obesity BMI 40.0-44.9, adult Depression Hypertension Encounter for hepatitis C screening test for low risk patient On statin therapy Immunization declined These Are Your Goals Maintain thereapeutic BP an prevent complications - Not met Interventions: Keep appointments as scheduled - Not done Learn best practice for home moniotring of BP - Not done Learn the importance of medication compliance - Not done Review educational material - Not done Take Medications as Prescribed - Not done Prevent complications of diabetes - Not met Interventions: Learn to identify signs and symptoms of hyper/hypoglycemia - Not done Monitor BS/ glucose levels as directed per PCP - Not done Perform daily foot care; foot checks, lotion, proper fitting socks and shoes - Not done Review educational material - Not done Take medications as prescribed - Not done Follow through with regular assessments to evaluate cognative function and prevent complications - Not met Interventions: Complete Annual Medicare Wellness Visit - Not done Referral to Neurology- Dr. Padgett 03/09/24 - Not done Practice good medication compliance and medication safety - Not met Interventions: Consult with pharmacy as needed - Not done Explore options such as: syncing medication refills, pill packs, combination pills when applicable - Not done Notify PCP and/or other providers immediatley of medication changes - Not done Paramedicine to help with weekly medication set up - Not done Set medication-taking reminders - Not done Your Care Team Attending Physician - Paty Guevara Primary Care Physician - Paty Guevara This Is Your Medications List Misc Prescription (Freestyle Marshal 3 Flash Glucose Monitoring 14 Day System (Sensor)) Misc Prescription (Freestyle Marshal 3 sensors) Misc Prescription (freestyle marshal 2 sensors) albuterol (Albuterol (Eqv-Ventolin HFA) 90 mcg/inh inhalation aerosol) apixaban (Eliquis) ascorbic acid (Vitamin C 500 mg Tab) atorvastatin bumetanide (bumetanide 1 mg Tab) clopidogrel cyanocobalamin (Vitamin B12) dapagliflozin (Farxiga 10 mg oral tablet) formoterol-mometasone (Dulera 100 mcg-5 mcg/inh inhalation aerosol) magnesium oxide metformin (MetFORMIN (Eqv-Glucophage XR) 500 mg oral tablet, extended release) metoprolol (Toprol-XL) multivitamin with minerals (PreserVision AREDS 2) nitroglycerin ocular lubricant (Refresh) potassium chloride spironolactone (spironolactone 25 mg Tab) tolterodine (tolterodine 4 mg Cap-ER) valsartan Procedures Performed Colonoscopy (05/13/2019), Laparoscopic cholecystectomy (04/03/2019), TURP - Transurethral resection of prostate (12/15/2015), Urodynamics (11/02/2015), Total hip replacement (09/08/2015), left total knee arhroplasty (05/10/2015), right total knee arthroplasty (02/22/2015), Cataract, Endoscopic retrograde cholangiopancreatography (ERCP) not completed due to anatomical derangements from previous surgery, Placement of stent in cardiac conduit, Rotator cuff repair, Tonsillectomy. Discharge Vitals Heart Rate (Peripheral) 70 Blood Pressure 126/68 Height 174 cm Height 69 in Weight 127.7 kg Weight 280.94 lb BMI 42.18 What to do next Scheduled Follow-Up Appointments Saturday 9:40 AM EDT With: Where: [address] [id number]- Saturday 10:00 AM EDT With: April DAVIDSON, Dayan Moore Where: [facility]monary Clinic Saturday 10:00 AM EST With: Paty Guevara Where: [address] [id number]- Saturday 8:45 AM EST With: Karissa BANKS MD Where: [facility] [address] [place], [place] [id number]- Saturday 9:30 AM EDT With: Where: [place] [id number]- You Need to Complete the Following Comprehensive Metabolic Panel, Blood, Routine collect, 03/12/24, Order for future visit, Lab Collect, Hypertension, Not Required, Print Label By Order Location HCV Antibody RFX to Quant PCR, Blood, Routine collect, 03/12/24, Order for future visit, Lab Collect, Encounter for hepatitis C screening test for low risk patient, Not Required, Print Label By Order Location HgbA1c, Blood, Routine collect, 03/12/24, Order for future visit, Lab Collect, Type 2 diabetes mellitus, Required & Missing, Print Label By Order Location Lipid Panel, Blood, Routine collect, 03/12/24, Order for f (more content not included)... Normal [facility] Medicine Office/Clini c Noteon 03-12-2024 Family Medicine Office/Clinic Note Family Medicine Office/Clinic Note Chief Complaint Initial Medicare Wellness Review of Systems PHQ Score Initial Depression Screen Score: 0 SCORE Physical Exam Vitals & Measurements HR: 70(Peripheral) BP: 126/68 SpO2: 97% HT: 174 cm HT: 69 in WT: 127.7 kg WT: 280.94 lb BMI: 42.18 Assessment/Plan 1. Medicare annual wellness visit, initial (Z00.00: Encounter for general adult medical examination without abnormal findings) The patient was given a customized and personalized print out of all the current AHRQ USPSTF?s recommendations for preventative services and all current CDC recommended immunizations, relevant risk recommendations and the following patient brochures were given. Reviewed Medicare Prevention Services checklist. CDC-Falls Prevention and home safety screening reviewed. Patient denies any falls in last 12 months, voices no worry about falling. Exhibits no problems with sitting, patient uses a can for balance with standing and/or ambulation. Patient aware with keeping walk way area free of clutter to prevent tripping and/or falling. [place] Advance Directives reviewed. Documents remain at home, encouraged to bring in for scanning into chart. Patient denies any problems with ADL?s and Instrumental ADL?s, except medications and finances. Patient reports that sister helps with medication and finance management. Cognitive screening completed with memory and clock face drawing. No deficits noted. Patient recited 3/3 memory words. Immunization record reviewed, discussed Shingrix vaccine with educational handout and availability. 2 COVID vaccines have been administered, with 2 Boosters received. Allergies and medications reviewed and up to date. No concerns with taking medication as prescribed. Reviewed OTC medications, medication list up to date. Blood tests were reviewed: Discussed what tests need to be updated. Labs were ordered, will have completed prior to next PCP visit. Labs to be completed with [facility]. No concerns with bowel/ bladder. Colonoscopy last completed with Dr. Brito. Repeat 10 years. Reviewed pain symptoms : Patient reports on and off right shoulder pain, rates pain as a 5 out of 10 in the last month. no pain medications taken. Patient denies pain today. Reviewed all outside providers that patient follows. Last visit summary notes available in chart and/or have been requested. Patient admits to some signs or symptoms of depression at this time. 8 minutes spent with screening and documentation. PHQ2 screening score 0. PHQ9 screening 9. Patient denies alcohol use. 8 minutes spent with screening and documentation. Audit score 0. Follow up scheduled with PCP, 05/18/24 AWV has been scheduled, 03/22/2025 Medicare provides yearly screening for alcohol and depression concerns. This is completed during our Medicare wellness visit for those who do not have a current diagnosis of depression or concerns with alcohol use. I spent a total of 17 minutes on this date of service which included preparing to see the patient, face to face patient care, completing clinical documentation, obtaining and/or reviewing separately obtained history, counseling and educating the patient with handouts. Explanations were provided with reviewing questionnaires. AUDIT risk assessment screening completed, risk score 0 with patient denying concerns with use. Completed PHQ-2 risk assessment for depression with risk score 0, PHQ9 score 9 with positive findings. Patient has been reminded to notify the provider if there would be a change or concerns with symptoms with fear, unable to sleep, worrying too much or feeling down and/or sad with lost of interest with daily activities. Will continue to monitor with screening yearly during Medicare wellness visits. 2. Type 2 diabetes mellitus (E11.9: Type 2 diabetes mellitus without complications) Patient is compliant on current DM medications: Metformin. Patient does monitors BS at home: DM stoplight handout reviewed with s/s to monitor for and report to PCP. Discussed ADA dietary recommendations with low carbs and reduce sugar intake. Patient encouraged to increase daily physical activity, adequate water intake and maintain a healthy weight. Pt follows up with PCP with yearly DM foot checks. Reminded patient to perform at home foot checks to prevent future complications, wash with soap and water, apply lotion to bilateral feet and in-between toes to prevent dryness and/or cracking. Wear proper fitting shoes and loose fitting socks and/or hose. Follows up with yearly DM eye exams, Dr. Piper last visit notes have been requested. A1C and microalbumin ordered. 3. Non-ST elevated myocardial infarction (non-STEMI) (I21.4: Non-ST elevation (NSTEMI) myocardial infarction) Patient follows [facility] as directed and prn. 4. Morbid obesity (E66.01: Morbid (severe) obesity due to excess calories) The standard range for ages 18 and older is >=18.5 and < 25 kg/m2. Your BMI 41.18 today was abo (more content not included)... Normal [facility] Comment on above: Result Comment: Elec tronically Signed By: Paty Guevara\.br\Date and Time Signed: 03/12/24 13:00 EDT\.br\Electronically Co-Signed By: Lacy Rey\.br\Date and Time Co-Signed: 03/12/24 10:53 EDT CHEMISTRYOrdered By: SYSTEM SYSTEM on 03-10-2024 Cobalamin (Vitamin B12) [Mass/Vol] 1184 pg/mL Normal 50 - 1500 pg/mL Remisol Chem TSH Qn 2.06 m[IU]/L Normal 0.34 - 5.60 mcIU/mL Remisol Chem [facility] TSHon 03-10-2024 [facility] THYROTROPIN:ACNC:PT:SE R/PLAS:QN: 2.06 [facility] Original Ordering Provider: DO Avi Padgett [facility] TSHon 03-10-2024 TSH Qn 2.06 m[IU]/L Normal 0.34-5.60 [facility] Comment on above: Performed By: #### 2 [id number] #### [facility] [address] [place] [address] Population Healthon 02-26-20 Population Health Population Health Problems Ongoing Anticoagulated Atrial fibrillation BMI 40.0-44.9, adult BMI 45.0-49.9, adult BPH with urinary obstruction Chronic GERD Depression Diabetes Establishing care with new doctor, encounter for Family history of prostate cancer Fluid retention Forgetfulness Hypertension Morbid obesity Nocturia Non-ST elevated myocardial infarction (non-STEMI) 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 Shortness of breath Type 2 diabetes mellitus Urge incontinence Urinary frequency Urinary urgency Historical No qualifying data Procedure/Surgical History Colonoscopy (05/13/2019), Laparoscopic cholecystectomy (04/03/2019), TURP - Transurethral resection of prostate (12/15/2015), Urodynamics (11/02/2015), Total hip replacement (09/08/2015), left total knee arhroplasty (05/10/2015), right total knee arthroplasty (02/22/2015), Cataract, Endoscopic retrograde cholangiopancreatography (ERCP) not completed due to anatomical derangements from previous surgery, Placement of stent in cardiac conduit, Rotator cuff repair, Tonsillectomy. Medication List Albuterol (Eqv-Ventolin HFA) 90 mcg/inh inhalation aerosol, See Instructions aspirin, 81 mg, Chewed, Daily atorvastatin, 80 mg, Oral, Bedtime bumetanide, 1 mg, Oral, Daily clopidogrel, 75 mg, Oral, Daily Dulera 100 mcg-5 mcg/inh inhalation aerosol, 2 puff(s), Inhalation, BID, 11 refills Eliquis, 5 mg, Oral, BID Farxiga 10 mg oral tablet, 10 mg, Oral, Daily, 1 refills Freestyle Marshal 2 Flash Glucose Monitoring 14 Day System (Staples), See Instructions freestyle marshal 2 sensors, See Instructions, 6 refills Freestyle Marshal 3 Flash Glucose Monitoring 14 Day System (Sensor), See Instructions, 1 refills Freestyle Marshal 3 sensors, See Instructions, 1 refills magnesium oxide, 500 mg, Oral, Bedtime MetFORMIN (Eqv-Glucophage XR) 500 mg oral tablet, extended release, See Instructions nitroglycerin, 0.4 mg, SubLingual, q5min, PRN potassium chloride, 10 mEq, Oral, Every other day Refresh, 1 drop(s), Eye-Both, PRN spironolactone 25 mg Tab, 25 mg= 1 tab(s), Oral, Daily tolterodine 4 mg Cap-ER, 4 mg= 1 cap(s), Oral, Daily, 3 refills Toprol-XL, 25 mg, Oral, Daily valsartan, 40 mg, Oral, Daily Vitamin B12, 1000 mcg, Oral, Daily Vitamin C 500 mg Tab, 500 mg= 1 tab(s), Oral, Daily Allergies No Known Allergies Goals and Interventions Care Plan Goal: Maintain thereapeutic BP an prevent complications Start Date: 2023 Target: - - Status: Not met Barriers: - - Comments: - - Intervention Frequency Status Commodity Industry Analyst Review educational material - - Not done - - Learn best practice for home moniotring of BP - - Not done - - Take Medications as Prescribed - - Not done - - Keep appointments as scheduled - - Not done - - Learn the importance of medication compliance - - Not done - - Goal: Prevent complications of diabetes Start Date: 2023 Target: - - Status: Not met Barriers: - - Comments: - - Intervention Frequency Status Commodity Industry Analyst Review educational material - - Not done - - Take medications as prescribed - - Not done - - Monitor BS/ glucose levels as directed per PCP - - Not done - - Learn to identify signs and symptoms of hyper/hypoglycemia - - Not done - - Perform daily foot care; foot checks, lotion, proper fitting socks and shoes - - Not done - - Goal: Follow through with regular assessments to evaluate cognative function and prevent complications Start Date: 2023 Target: - - Status: Not met Barriers: - - Comments: - - Intervention Frequency Status Commodity Industry Analyst Complete Annual Medicare Wellness Visit - - Not done - - Referral to Neurology- Dr. Padgett 03/09/24 - - Not done - - Goal: Practice good medication compliance and medication safety Start Date: 2023 Target: - - Status: Not met Barriers: - - Comments: - - Intervention Frequency Status Commodity Industry Analyst Paramedicine to help with weekly medication set up - - Not done - - Notify PCP and/or other providers immediatley of medication changes - - Not done - - Consult with pharmacy as needed - - Not done - - Explore options such as: syncing medication refills, pill packs, combination pills when applicable - - Not done - - Set medication-taking reminders - - Not done - - Normal [facility] Interdisciplinary Note - Soc ial Workeron 02-25-2024 Interdisciplinary Note - Large Engine Assembler Interdisciplinary Note - Large Engine Assembler Consult was received for needed resources after his previous appointment. SW made tc today to patient's sister, Marcia to discuss. She states they currently have everything they need. She states that the [facility] is working on HH and dietary needs. Paramedicine is also arranged. SW let her know to reach out should further needs arise. SW will remain available. Normal [facility] Population Healthon 02-25-20 24 Count Includes [facility] Health Case Information Case Priority: None Programs: -- Referral Source: Carburizing Furnace Operator Referral Reason: Disease management Case Type: Chronic Care Management Risk Score: -- Case Status: New (February 10, 2024) Date Assigned: February 10, 2024 Assigned By: Wayne Nunes Date Enrolled: -- Assigned Primary Personnel: Wayne Nunes Assigned Secondary Personnel: -- Case Physician: Paty Guevara Problems Ongoing Anticoagulated Atrial fibrillation BMI 40.0-44.9, adult BMI 45.0-49.9, adult BPH with urinary obstruction Chronic GERD Depression Diabetes Establishing care with new doctor, encounter for Family history of prostate cancer Fluid retention Forgetfulness Hypertension Morbid obesity Nocturia Non-ST elevated myocardial infarction (non-STEMI) 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 Shortness of breath Type 2 diabetes mellitus Urge incontinence Urinary frequency Urinary urgency Historical No qualifying data Procedure/Surgical History Colonoscopy (05/13/2019), Laparoscopic cholecystectomy (04/03/2019), TURP - Transurethral resection of prostate (12/15/2015), Urodynamics (11/02/2015), Total hip replacement (09/08/2015), left total knee arhroplasty (05/10/2015), right total knee arthroplasty (02/22/2015), Cataract, Endoscopic retrograde cholangiopancreatography (ERCP) not completed due to anatomical derangements from previous surgery, Placement of stent in cardiac conduit, Rotator cuff repair, Tonsillectomy. Home Medications Albuterol (Eqv-Ventolin HFA) 90 mcg/inh inhalation aerosol, See Instructions aspirin, 81 mg, Chewed, Daily atorvastatin, 80 mg, Oral, Bedtime bumetanide, 1 mg, Oral, Daily clopidogrel, 75 mg, Oral, Daily Dulera 100 mcg-5 mcg/inh inhalation aerosol, 2 puff(s), Inhalation, BID, 11 refills Eliquis, 5 mg, Oral, BID Farxiga 10 mg oral tablet, 10 mg, Oral, Daily, 1 refills Freestyle Marshal 2 Flash Glucose Monitoring 14 Day System (Staples), See Instructions freestyle marshal 2 sensors, See Instructions, 6 refills Freestyle Marshal 3 Flash Glucose Monitoring 14 Day System (Sensor), See Instructions, 1 refills Freestyle Marshal 3 sensors, See Instructions, 1 refills magnesium oxide, 500 mg, Oral, Bedtime MetFORMIN (Eqv-Glucophage XR) 500 mg oral tablet, extended release, See Instructions nitroglycerin, 0.4 mg, SubLingual, q5min, PRN potassium chloride, 10 mEq, Oral, Every other day Refresh, 1 drop(s), Eye-Both, PRN spironolactone 25 mg Tab, 25 mg= 1 tab(s), Oral, Daily tolterodine 4 mg Cap-ER, 4 mg= 1 cap(s), Oral, Daily, 3 refills Toprol-XL, 25 mg, Oral, Daily valsartan, 40 mg, Oral, Daily Vitamin B12, 1000 mcg, Oral, Daily Vitamin C 500 mg Tab, 500 mg= 1 tab(s), Oral, Daily Allergies No Known Allergies Social History Alcohol - Denies Alcohol Use, 01/31/2015 Substance Abuse - Denies Substance Abuse, 01/31/2015 Tobacco - Denies Tobacco Use, 01/31/2015 Never (less than 100 in lifetime) Tobacco Use:. Never Smokeless Tobacco Use:. Cigarettes, Household tobacco concerns: No. Yes, 02/17/2024 Family History COPD: Sister. Cardiac arrhythmia: Brother. Diabetes mellitus type 2: Mother. Heart failure: Mother. Hyperthyroidism: Mother. Metastatic cancer: Father and Brother. Stroke: Mother. Screenings and Assessments 02/25/24 10:00:00 Result Name Value Comment HIPPA Verified Type of Contact In person at home Information Given by Self CM Preferred Spoken Language Angolan CM Preferred Written Language Angolan Preferred Communication Mode Verbal Ability to Read/Write Able to read, Able to write CM Caregiver's Preferred Spoken Language Angolan CM Caregivers Preferred Written Language Angolan Software Developer Intern Called No Preferred Method of Contact Cell Cell Best Time to Visit or Contact 7-10 am Best Day to Visit or Contact No preference Appointment Reminders Phone, Other secured messaging Preferred Way to Send PHI Other secured messaging Preferred Mailing Address [address] [place] [address] Learning Style Pref Patient Video/Educational TV Learning Style Pref Parent/Guardian Video/Educational TV Teaching Method Teach-back, Video/Educational TV Barriers to Learning None evident hard to hear if background noise is loudcan get confused with interchangable medical terms Cognitive Deficit Unsure Response to Current Year Correct Response to Current Month Correct Response to Current Time Correct Count Backward 20 to 1 Correct State Months in Reverse Order 1 Error Repeat Memory Phrase Correct [facility] Test Score Indication None or no significant cognitive impairm (more content not included)... Normal [facility] Ambulatory Visit Summaryon 0 02-17-2024 Ambulatory Visit Summary Ambulatory Visit Summary HUANG ROBLES :1955 Visit Date:02/17/2024 Ambulatory Visit Instructions Your Diagnosis Diabetes Your Care Team Attending Physician - Paty Guevara Primary Care Physician - Paty Guevara This Is Your Medications List Misc Prescription (Freestyle Marshal 2 Flash Glucose Monitoring 14 Day System (Staples)) Misc Prescription (Freestyle Marshal 3 Flash Glucose Monitoring 14 Day System (Sensor)) Misc Prescription (Freestyle Marshal 3 sensors) Misc Prescription (freestyle marshal 2 sensors) albuterol (Albuterol (Eqv-Ventolin HFA) 90 mcg/inh inhalation aerosol) apixaban (Eliquis) ascorbic acid (Vitamin C 500 mg Tab) aspirin atorvastatin bumetanide clopidogrel cyanocobalamin (Vitamin B12) dapagliflozin (Farxiga 10 mg oral tablet) formoterol-mometasone (Dulera 100 mcg-5 mcg/inh inhalation aerosol) magnesium oxide metformin (MetFORMIN (Eqv-Glucophage XR) 500 mg oral tablet, extended release) metoprolol (Toprol-XL) nitroglycerin ocular lubricant (Refresh) potassium chloride spironolactone (spironolactone 25 mg Tab) tolterodine (tolterodine 4 mg Cap-ER) valsartan Procedures Performed Colonoscopy (05/13/2019), Laparoscopic cholecystectomy (04/03/2019), TURP - Transurethral resection of prostate (12/15/2015), Urodynamics (11/02/2015), Total hip replacement (09/08/2015), left total knee arhroplasty (05/10/2015), right total knee arthroplasty (02/22/2015), Cataract, Endoscopic retrograde cholangiopancreatography (ERCP) not completed due to anatomical derangements from previous surgery, Placement of stent in cardiac conduit, Rotator cuff repair, Tonsillectomy. Discharge Vitals Temperature (Oral) 36.5 ?C Heart Rate (Peripheral) 74 Respiratory Rate 16 Blood Pressure 172/88 Height 174 cm Height 69 in Weight 129.2 kg Weight 284.24 lb BMI 42.67 What to do next Scheduled Follow-Up Appointments 2023 9:30 AM EDT With: Where: [address] [id number]- Saturday 10:00 AM EDT With: April DAVIDSON, Dayan Moore Where: Pulmonary Clinic Saturday 10:00 AM EST With: Paty Guevara Where: [address] [id number]- Saturday 8:45 AM EST With: Karissa BANKS MD Where: [facility] [address] [place], [place] [id number]- Medications What How Much When Why Instructions Unchanged albuterol (Albuterol (Eqv-Ventolin HFA) 90 mcg/ inh inhalation aerosol) See instructions INHALE 2 PUFFS BY MOUTH EVERY 4 HOURS NEEDED Unchanged apixaban (Eliquis) 5 Milligram By Mouth 2 times a day Unchanged ascorbic acid (Vitamin C 500 mg Tab) 1 Tablets By Mouth Every day Unchanged aspirin 81 Milligram Chewed Every day Unchanged atorvastatin 80 Milligram By Mouth At bedtime Unchanged bumetanide 1 Milligram By Mouth Every day Unchanged clopidogrel 75 Milligram By Mouth Every day Unchanged cyanocobalamin (Vitamin B12) 1,000 Microgram By Mouth Every day Unchanged dapagliflozin (Farxiga 10 mg oral tablet) 10 Milligram By Mouth Every day Unchanged formoterol-mometasone (Dulera 100 mcg-5 mcg/ inh inhalation aerosol) 2 Puffs Inhalation 2 times a day COPD mixed type Duration: 30 Days Unchanged magnesium oxide 500 Milligram By Mouth At bedtime Unchanged metformin (MetFORMIN (Eqv-Glucophage XR) 500 mg oral tablet, extended release) See instructions TAKE 1 TABLET BY MOUTH TWICE A DAY FOR 90 DAYS Unchanged metoprolol (Toprol-XL) 25 Milligram By Mouth Every day Unchanged Misc Prescription (Freestyle Marshal 2 Flash Glucose Monitoring 14 Day System (Staples)) See instructions Type 2 diabetes mellitus Freestyle Marshal 2 Flash Glucose Monitoring 14 Day System (Staples) Unchanged Misc Prescription (freestyle marshal 2 sensors) See instructions Type 2 diabetes mellitus check blood sugar 4 times per day Unchanged Misc Prescription (Freestyle Marshal 3 Flash Glucose Monitoring 14 Day System (Sensor)) See instructions Non-ST elevated myocardial infarction (non-STEMI) Forgetfulness 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 Type 2 diabetes mellitus BMI 45.0-49.9, adult Non-smoker Freestyle Marshal 3 Flash Glucose Monitoring 14 Day System (Sensor). Replace sensor every 14 days. Unchanged Misc Prescription (Freestyle Marshal 3 sensors) See instructions Type 2 diabetes mellitus BMI 45.0-49.9, adult Non-smoker change as needed Unchanged nitroglycerin 0.4 Milligram Sublingual Every 5 minutes as needed for Chest pain Duration: 3 Doses Unchanged ocular lubricant (Refresh) 1 Drops Both eyes As needed for Dry eyes Unchanged potassium chloride 10 Milliequivalent By Mouth Every other day Unchanged spironolactone (spironolactone 25 mg Tab) 1 Tablets By Mouth Every day Unchanged tolterodine (to (more content not included)... Normal [facility] 02-10-20 Count Includes [facility] Health Case Information Case Priority: None Programs: -- Referral Source: Carburizing Furnace Operator Referral Reason: Care coordination Case Type: Transition Care Management Risk Score: -- Case Status: Enrolled (January 16, 2024) Date Assigned: January 16, 2024 Assigned By: Wayne Nunes Date Enrolled: January 16, 2024 Assigned Primary Personnel: Wayne Nunes Assigned Secondary Personnel: -- Case Physician: Paty Guevara Problems Ongoing Anticoagulated Atrial fibrillation BMI 45.0-49.9, adult BPH with urinary obstruction Chronic GERD Depression Diabetes Establishing care with new doctor, encounter for Family history of prostate cancer Fluid retention Forgetfulness Hypertension Morbid obesity Nocturia Non-ST elevated myocardial infarction (non-STEMI) 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 Home Medications Albuterol (Eqv-Ventolin HFA) 90 mcg/inh inhalation aerosol, See Instructions aspirin, 81 mg, Chewed, Daily atorvastatin, 80 mg, Oral, Bedtime bumetanide, 1 mg, Oral, Daily clopidogrel, 75 mg, Oral, Daily Dulera 100 mcg-5 mcg/inh inhalation aerosol, 2 puff(s), Inhalation, BID, 11 refills Eliquis, 5 mg, Oral, BID Farxiga 10 mg oral tablet, 10 mg, Oral, Daily, 1 refills fluticasone, 50 mcg, Inhalation, PRN Freestyle Marshal 2 Flash Glucose Monitoring 14 Day System (Staples), See Instructions freestyle marshal 2 sensors, See Instructions, 6 refills Freestyle Marshal 3 Flash Glucose Monitoring 14 Day System (Sensor), See Instructions, 1 refills Freestyle Marshal 3 sensors, See Instructions, 1 refills ICaps AREDS oral tablet, 1 tab(s), Oral, BID magnesium oxide, 500 mg, Oral, Bedtime MetFORMIN (Eqv-Glucophage XR) 500 mg oral tablet, extended release, See Instructions Milk of Magnesia, 1200 mg, Oral, PRN Nasal Mist, 2 spray(s), Nasal, PRN nitroglycerin, 0.4 mg, SubLingual, q5min, PRN potassium chloride, 10 mEq, Oral, Every other day Refresh, 1 drop(s), Eye-Both, PRN senna, 8.6 mg, Oral, BID, PRN spironolactone 25 mg Tab, 25 mg= 1 tab(s), Oral, Daily tolterodine 4 mg Cap-ER, 4 mg= 1 cap(s), Oral, Daily, 3 refills Toprol-XL, 25 mg, Oral, Daily Tussin DM Sugar Free, 10 mL, PRN valsartan, 40 mg, Oral, Daily Vitamin B12, 1000 mcg, Oral, Daily Vitamin C 500 mg Tab, 500 mg= 1 tab(s), Oral, Daily Allergies No Known Allergies Social History Alcohol - Denies Alcohol Use, 01/31/2015 Substance Abuse - Denies Substance Abuse, 01/31/2015 Tobacco - Denies Tobacco Use, 01/31/2015 Never (less than 100 in lifetime) Tobacco Use:. Never Smokeless Tobacco Use:. Cigarettes, Household tobacco concerns: No., 01/20/2024 Family History COPD: Sister. Cardiac arrhythmia: Brother. Diabetes mellitus type 2: Mother. Heart failure: Mother. Hyperthyroidism: Mother. Metastatic cancer: Father and Brother. Stroke: Mother. Screenings and Assessments 01/16/24 09:44:00 Result Name Value Comment Phone Call Monitoring Consent Agreed to continue call Phone Verification Patient Information Full name, street address and date of verified CM Program Enrollment Provides verbal consent for enrollment Goals and Interventions Care Plan Progress Note TCM#4- Spoke with patient, states he is 'starting to walk more.' Patient notes he does still have 'SOB,' notes it is more so when the temps are very hot or really cold. Patient notes he gets tired easy. Patient does not have BP or HR readings available. Reports his BS are normal. Patient notes he does feel lightheaded if he is being rushed or in a hurry. Reminded patient importance of slow position changes and good hydration. Patient is not certain when cardio f/u is scheduled. Patient Denies any CP. Notes some BLE swelling still present, denies weeping, blisters, or open areas. Patient had his PCI last week with Dr. Maciel. Notes black and blue bruising to RR insertion site. Denies any lumps, swelling, or pain. CN reviewed importance of elevating LE and low sodium diet to help improve swelling. Patient denies any further questions or concerns. CN discussed CCM services with patient, he does want to enroll. Paramedicine to assist with medications. CN to update pt caregiver, Carley, and schedule intake. Communication Events Date: February 10, 2024 Method: Phone call Type: Outbound Duration (min): 22 Outcome: Case discussion Contac (more content not included)... Normal [facility] Activated partial thrombopla stin time (aPTT) in platelet poor plasma by coagulation aOrdered By: Kyleigh Maciel on 02-04-2024 aPTT Coag (PPP) [Time] 31.9 s 25.1-36.5 [facility] Comment on above: A hematocrit value g reater than 55% may lead to inaccurate results in coagulation testing. Patients having hematocrit values >55% require a special collection tube for coagulation studies. Please contact the laboratory at [phone] for redraw instructions. Automated basophil %Ordered By: Kyleigh Maciel on 02-04-2024 Basophils/100 WBC (Bld) 0.9 % Normal . [facility] Comment on above: Performed By: #### L IPID, PP, CREAT, CBC, BUN, LYTES #### [facility] [address] [place] [address] Automated basophil countOrde red By: Kyleigh Maciel on 02-04-2024 Basophils (Bld) [#/Vol] 0.1 10*3/uL Normal 0.0-0.2 [facility] Comment on above: Result Comment: PERF ORMED BY: [place] [address] PATHOLOGIST BALLISTICS PROFESSOR DEENA ESCOBAR M.D. Performed By: #### L IPID, PP, CREAT, CBC, BUN, LYTES #### [facility] [address] [place] [address] Automated blood monocyte cou ntOrdered By: Kyleigh Maciel on 02-04-2024 Monocytes (Bld) [#/Vol] 0.6 10*3/uL Normal 0.0-0.8 [facility] Comment on above: Performed By: #### L IPID, PP, CREAT, CBC, BUN, LYTES #### [address] Automated eosinophil %Ordere d By: Kyleigh Maciel on 02-04-2024 Eosinophils/100 WBC (Bld) 1.8 % Normal . [facility] Comment on above: Performed By: #### L IPID, PP, CREAT, CBC, BUN, LYTES #### [address] Automated eosinophil countOr dered By: Kyleigh Maciel on 02-04-2024 Eosinophils (Bld) [#/Vol] 0.1 10*3/uL Normal 0.0-0.45 [facility] Comment on above: Performed By: #### L IPID, PP, CREAT, CBC, BUN, LYTES #### [address] Automated monocyte %Ordered By: Kyleigh Maciel on 02-04-2024 Monocytes/100 WBC (Bld) 8.4 % Normal . [facility] Comment on above: Performed By: #### L IPID, PP, CREAT, CBC, BUN, LYTES #### [address] Automated neutrophil %Ordere d By: Kyleigh Maciel on 02-04-2024 Neutrophils/100 WBC (Bld) 72.8 % Normal . [facility] Comment on above: Performed By: #### L IPID, PP, CREAT, CBC, BUN, LYTES #### [address] Carbon dioxide, total [Moles /volume] in Serum or PlasmaOrdered By: Kyleigh Maciel on 02-04-2024 CO2 [Moles/Vol] 23.2 mmol/L Normal 21.0-31.0 [facility] Comment on above: Performed By: #### L IPID, PP, CREAT, CBC, BUN, LYTES #### [address] Chloride [Moles/volume] in S parisa or PlasmaOrdered By: Kyleigh Maciel on 02-04-2024 Chloride [Moles/Vol] 100 mmol/L Normal 98-107 [facility] Comment on above: Performed By: #### L IPID, PP, CREAT, CBC, BUN, LYTES #### [facility] [address] [id number] [facility] Cholesterol [Mass/volume] in Serum or PlasmaOrdered By: Kyleigh Maciel on 02-04-2024 Cholesterol [Mass/Vol] 54 mg/dL Low 140-200 [facility] Comment on above: Chol less than 200 m g/dl low riskChol 201-239 mg/dl borderline riskChol 240 mg/dl and greater high risk Result Comment: Chol less than 200 mg/dl low risk Chol 201-239 mg/dl borderline risk Chol 240 mg/dl and greater high risk Performed By: #### L IPID, PP, CREAT, CBC, BUN, LYTES #### [facility] [address] [place] [address] [facility] Cholesterol in LDL Calc [Mas s/Vol]Ordered By: Kyleigh Maciel on 02-04-2024 Cholesterol in LDL [Mass/Vol] 16 mg/dL 0-100 [facility] Comment on above: LDL ATP III CLASSIFI CATIONLDL less than 100 mg/dL OptimalLDL 100-129 mg/dL Near or above optimalLDL 130-159 mg/dL Borderline highLDL 160-189 mg/dL HighLDL greater than 189 mg/dL Very high Cholesterol in VLDL Calc [Ma ss/Vol]Ordered By: Kyleigh Maciel on 02-04-2024 Cholesterol in VLDL [Mass/Vol] 11 mg/dL [facility] Coagulation Profileon 2023 aPTT Coag (Bld) [Time] 31.9 s Normal 25.1-36.5 [facility] Comment on above: Result Comment: A he matocrit value greater than 55% may lead to inaccurate results in coagulation testing. Patients having hematocrit values >55% require a special collection tube for coagulation studies. Please contact the laboratory at [phone] for redraw instructions. PERFORMED BY: [address] [address] PATHOLOGIST BALLISTICS PROFESSOR JIANLAN SUN M.D. Performed By: #### L IPID, PP, CREAT, CBC, BUN, LYTES #### [address] Complete Blood Count Auto Di ffon 02-04-2024 Mean Corpuscular HGB Conc 34.4 g/dL Normal 32.5-35.6 [facility] Comment on above: Performed By: #### L IPID, PP, CREAT, CBC, BUN, LYTES #### [address] NRBC% 0.1 /100{WBC} Normal 0-0.5 [facility] Comment on above: Performed By: #### L IPID, PP, CREAT, CBC, BUN, LYTES #### [address] Creatinineon 02-04-2024 Creatinine Clr Calc Pharmacy 107.26 Normal [facility] Comment on above: Performed By: #### L IPID, PP, CREAT, CBC, BUN, LYTES #### [address] GFR/1.73 sq M.predicted MDRD (S/P/Bld) [Vol rate/Area] mL/min/{1.73_m2} Normal [facility] Comment on above: Performed By: #### L IPID, PP, CREAT, CBC, BUN, LYTES #### [address] Creatinine [Mass/volume] in Serum or PlasmaOrdered By: Kyleigh Maciel on 02-04-2024 Creatinine [Mass/Vol] 0.86 mg/dL Normal 0.70-1.30 [facility] Comment on above: Performed By: #### L IPID, PP, CREAT, CBC, BUN, LYTES #### [address] ECG 12 lead ECGon 02-04-2024 ECG 12 lead ECG [facility] Main [place] [address] [place] [address] Electrocardiograph Report Signed Patient: Huang Robles MR#: [id number] 82 : 1955 Acct:[id number] Age/Sex: 68 / M ADM Date: 02/04/24 Loc: Room: Type: [facility] Attending Dr: Kyleigh Maciel DO Ordering Provider: Kyleigh Maciel DO Date of Service: 02/04/24 ECG/ECG 12 lead ECG: [facility] Copies to: Test Reason : Blood Pressure : */* mmHG Vent. Rate : 74 BPM Atrial Rate : * BPM P-R Int : * ms QRS Dur : 140 ms QT Int : 426 ms P-R-T Axes : * 104 30 degrees QTcB Int : 472 ms Atrial fibrillation Right bundle branch block Abnormal ECG Confirmed by BRADLEY ANTONIO MD ([facility]) on 02/11/2024 8:47:12 PM Referred By: Electronically Signed By: BRADLEY ANTONIO MD Transcribed By: MUS Signed By Bradley Antonio MD 0 02/11/242046 Normal [facility] Erythrocyte distribution wid th [Ratio] by Automated countOrdered By: Kyleigh Maciel on 02-04-2024 Erythrocyte distribution width (RBC) [Ratio] 14.4 % Normal 12.0-14.8 [facility] Comment on above: Performed By: #### L IPID, PP, CREAT, CBC, BUN, LYTES #### [facility] [address] Erythrocytes [#/volume] in B lood by Automated countOrdered By: Kyleigh Maciel on 02-04-2024 RBC (Bld) [#/Vol] 3.99 10*6/uL Normal 3.90-5.60 [facility] Comment on above: Performed By: #### L IPID, PP, CREAT, CBC, BUN, LYTES #### [facility] [address] Hematocrit [Volume Fraction] of Blood by Automated countOrdered By: Kyleigh Maciel on 02-04-2024 Hematocrit (Bld) [Volume fraction] 37.2 % Low 38.8-50.0 [facility] Comment on above: Performed By: #### L IPID, PP, CREAT, CBC, BUN, LYTES #### [facility] [address] Hemoglobin [Mass/volume] in BloodOrdered By: Kyleigh Maciel on 02-04-2024 Hemoglobin (Bld) [Mass/Vol] 12.8 g/dL Low 13.0-17.0 [facility] Comment on above: Performed By: #### L IPID, PP, CREAT, CBC, BUN, LYTES #### [address] INR in Platelet poor plasma by Coagulation assayOrdered By: Kyleigh Maciel on 02-04-2024 INR Coag (PPP) [Relative time] 1.3 {INR} Normal [facility] Comment on above: INR Therapeutic Rang e A) Pre- and Peroperative OAT started two weeks before surgery. NOT HIP SURGERY: 1.5 - 2.5 HIP SURGERY: 2 - 3B) Primary and secondary prevention of venous THROMBOSIS: 2 - 3C) Active venous thrombosis, pulmonary embolismand prevention of recurrent venous thrombosis: 2 - 3D) Prevention of arterial thromboembolismincluding patients with mechanical heart valves: 3 - 4.5 Result Comment: INR Therapeutic Range A) Pre- and Peroperative OAT started two weeks before surgery. NOT HIP SURGERY: 1.5 - 2.5 HIP SURGERY: 2 - 3 B) Primary and secondary prevention of venous THROMBOSIS: 2 - 3 C) Active venous thrombosis, pulmonary embolism and prevention of recurrent venous thrombosis: 2 - 3 D) Prevention of arterial thromboembolism including patients with mechanical heart valves: 3 - 4.5 Performed By: #### L IPID, PP, CREAT, CBC, BUN, LYTES #### [facility] [address] [place] [address] Leukocytes [#/volume] correc garfield for nucleated erythrocytes in Blood by Automated counOrdered By: Kyleigh Maciel on 02-04-2024 WBC corrected for nucl RBC Auto (Bld) [#/Vol] 7.2 10*3/uL 4.1-10.5 [facility] Leukocytes [#/volume] in Blo od by Automated countOrdered By: Kyleigh Maciel on 02-04-2024 WBC (Bld) [#/Vol] 7.2 10*3/uL Normal 4.1-10.5 [facility] Comment on above: Performed By: #### L IPID, PP, CREAT, CBC, BUN, LYTES #### [address] Lipid Panelon 02-04-2024 LDL Cholesterol,Calculated 16 mg/dL Normal 0-100 [facility] Comment on above: Result Comment: LDL ATP III CLASSIFICATION LDL less than 100 mg/dL Optimal LDL 100-129 mg/dL Near or above optimal LDL 130-159 mg/dL Borderline high LDL 160-189 mg/dL High LDL greater than 189 mg/dL Very high Performed By: #### L IPID, PP, CREAT, CBC, BUN, LYTES #### [address] Triglyceride w/Reflex 55 mg/dL Normal 0-149 [facility] Comment on above: Result Comment: TRIG ATP III CLASSIFICATION TRIG less than 150 mg/dL Normal TRIG 150-199 mg/dL Borderline high TRIG 200-500 mg/dL High TRIG greater than 500 mg/dL Very high Standard traceable to the Center for Disease Conrtrol and Prevention (CDC) test method. Performed By: #### L IPID, PP, CREAT, CBC, BUN, LYTES #### [address] VLDL CHOLESTEROL 11 mg/dL Normal [facility] Comment on above: Performed By: #### L IPID, PP, CREAT, CBC, BUN, LYTES #### [address] Lymphocytes [#/volume] in Bl ood by Automated countOrdered By: Kyleigh Maciel on 02-04-2024 Lymphocytes (Bld) [#/Vol] 1.2 10*3/uL Normal 1.00-4.8 [facility] Comment on above: Performed By: #### L IPID, PP, CREAT, CBC, BUN, LYTES #### [place] [address] [place] Lymphocytes/100 leukocytes i n Blood by Automated countOrdered By: Kyleigh Maciel on 02-04-2024 Lymphocytes/100 WBC (Bld) 16.1 % Normal . [facility] Comment on above: Performed By: #### L IPID, PP, CREAT, CBC, BUN, LYTES #### [facility] [address] [place] [address] MCH [Entitic mass] by Automa garfield countOrdered By: Kyleigh Maciel on 02-04-2024 MCH (RBC) [Entitic mass] 32.0 pg Normal 27.5-35.2 [facility] Comment on above: Performed By: #### L IPID, PP, CREAT, CBC, BUN, LYTES #### [facility] [address] [place] [address] MCHC Auto (RBC) [Mass/Vol]Or dered By: Kyleigh Maciel on 02-04-2024 MCHC (RBC) [Mass/Vol] 34.4 g/dL 32.5-35.6 [facility] MCV [Entitic volume] by Auto mated countOrdered By: Kyleigh Maciel on 02-04-2024 MCV (RBC) [Entitic vol] 93.2 fL Normal 83.5-101 [facility] Comment on above: Performed By: #### L IPID, PP, CREAT, CBC, BUN, LYTES #### [address] Neutrophils [#/volume] in Bl ood by Automated countOrdered By: Kyleigh Maciel on 02-04-2024 Neutrophils (Bld) [#/Vol] 5.3 10*3/uL Normal 1.8-7.7 [facility] Comment on above: Performed By: #### L IPID, PP, CREAT, CBC, BUN, LYTES #### [facility] [address] [place] [address] No Panel InformationOrdered By: Kyleigh Maciel on 02-04-2024 Estimated GFR (CKD-EPI) > 60.0 mL/Min [facility] Creatinine Clearance (Chem 107.26 [facility] Nucleated erythrocytes [Pres ence] in Blood by Automated countOrdered By: Kyleigh Maciel on 02-04-2024 Nucleated RBC Auto Ql (Bld) 0.1 /100{WBC} 0-0.5 [facility] Platelet mean volume [Entiti c volume] in Blood by Automated countOrdered By: Kyleigh Maciel on 02-04-2024 Platelet mean volume (Bld) [Entitic vol] 7.8 fL Normal 6.6-10.1 [facility] Comment on above: Performed By: #### L IPID, PP, CREAT, CBC, BUN, LYTES #### [facility] [address] Platelets [#/volume] in Bloo d by Automated countOrdered By: Kyleigh Maciel on 02-04-2024 Platelets (Bld) [#/Vol] 240 10*3/uL Normal 150-450 [facility] Comment on above: Performed By: #### L IPID, PP, CREAT, CBC, BUN, LYTES #### [facility] [address] [place] [address] Potassium [Moles/volume] in Serum or PlasmaOrdered By: Kyleigh Maciel on 02-04-2024 Potassium [Moles/Vol] 3.7 mmol/L Normal 3.5-5.1 [facility] Comment on above: Performed By: #### L IPID, PP, CREAT, CBC, BUN, LYTES #### [facility] [address] [place] [address] Prothrombin time (PT)Ordered By: Kyleigh Maciel on 02-04-2024 PT Coag (PPP) [Time] 15.0 s High 9.0-12.9 [facility] Comment on above: A hematocrit value g reater than 55% may lead to inaccurate results in coagulation testing. Patients having hematocrit values >55% require a special collection tube for coagulation studies. Please contact the laboratory at [phone] for redraw instructions. Result Comment: A he matocrit value greater than 55% may lead to inaccurate results in coagulation testing. Patients having hematocrit values >55% require a special collection tube for coagulation studies. Please contact the laboratory at [phone] for redraw instructions. Performed By: #### L IPID, PP, CREAT, CBC, BUN, LYTES #### [facility] [address] [place] [address] Serum or plasma anion gap de terminationOrdered By: Kyleigh Maciel on 02-04-2024 Anion gap [Moles/Vol] 13.5 mmol/L Normal 6.0-15.0 [facility] Comment on above: Performed By: #### L IPID, PP, CREAT, CBC, BUN, LYTES #### [address] Serum or plasma high density lipoprotein (HDL) cholesterol measurementOrdered By: Kyleigh Maciel on 02-04-2024 Cholesterol in HDL [Mass/Vol] 27 mg/dL Normal 23-92 [facility] Comment on above: HDL CHOL ATP-III CLA SSIFICATION Cardiovascular RiskHDL > or equal to 60 mg/dL LOWHDL < 40 mg/dL HIGH Result Comment: HDL CHOL ATP-III CLASSIFICATION Cardiovascular Risk HDL > or equal to 60 mg/dL LOW HDL < 40 mg/dL HIGH Performed By: #### L IPID, PP, CREAT, CBC, BUN, LYTES #### [address] Serum or plasma total choles terol/high density lipoprotein (HDL) cholesterol mass ratOrdered By: Kyleigh Maciel on 02-04-2024 Cholesterol.total/Chol esterol in HDL [Mass ratio] 2.0 {ratio} Normal <5.0 [facility] Comment on above: Result Comment: PERF ORMED BY: [place] [address] PATHOLOGIST BALLISTICS PROFESSOR DEENA ESCOBAR M.D. Performed By: #### L IPID, PP, CREAT, CBC, BUN, LYTES #### [address] Sodium [Moles/volume] in Ser um or PlasmaOrdered By: Kyleigh Maciel on 02-04-2024 Sodium [Moles/Vol] 133 mmol/L Low 136-145 [facility] Comment on above: Performed By: #### L IPID, PP, CREAT, CBC, BUN, LYTES #### [facility] [address] [id number] [facility] Triglyceride [Mass/volume] i n Serum or PlasmaOrdered By: Kyleigh Maciel on 02-04-2024 Triglyceride [Mass/Vol] 55 mg/dL 0-149 [facility] Comment on above: TRIG ATP III CLASSIF ICATIONTRIG less than 150 mg/dL NormalTRIG 150-199 mg/dL Borderline highTRIG 200-500 mg/dL High TRIG greater than 500 mg/dL Very highStandard traceable to the Center for Disease Conrtrol and Prevention (CDC) test method. Urea nitrogen [Mass/volume] in Serum or PlasmaOrdered By: Kyleigh Maciel on 02-04-2024 Urea nitrogen [Mass/Vol] 19 mg/dL Normal 7-25 [facility] Comment on above: Performed By: #### L IPID, PP, CREAT, CBC, BUN, LYTES #### [facility] [address] [id number] [facility] Case Information Case Priority: None Programs: -- Referral Source: [employer] Referral Reason: Care coordination Case Type: Transition Care Management Risk Score: -- Case Status: Enrolled (January 16, 2024) Date Assigned: January 16, 2024 Assigned By: Wayne Nunes Date Enrolled: January 16, 2024 Assigned Primary Personnel: Wayne Nunes Assigned Secondary Personnel: -- Case Physician: Paty Guevara Problems Ongoing Anticoagulated Atrial fibrillation BMI 45.0-49.9, adult BPH with urinary obstruction Chronic GERD Depression Diabetes Establishing care with new doctor, encounter for Family history of prostate cancer Fluid retention Forgetfulness Hypertension Morbid obesity Nocturia Non-ST elevated myocardial infarction (non-STEMI) 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 Home Medications Albuterol (Eqv-Ventolin HFA) 90 mcg/inh inhalation aerosol, See Instructions aspirin, 81 mg, Chewed, Daily atorvastatin, 80 mg, Oral, Bedtime bumetanide, 1 mg, Oral, Daily clopidogrel, 75 mg, Oral, Daily Dulera 100 mcg-5 mcg/inh inhalation aerosol, 2 puff(s), Inhalation, BID, 11 refills Eliquis, 5 mg, Oral, BID Farxiga, 10 mg, Oral, Daily fluticasone, 50 mcg, Inhalation, PRN Freestyle Marshal 2 Flash Glucose Monitoring 14 Day System (Staples), See Instructions freestyle marshal 2 sensors, See Instructions, 6 refills Freestyle Marshal 3 Flash Glucose Monitoring 14 Day System (Sensor), See Instructions, 1 refills Freestyle Marshal 3 sensors, See Instructions, 1 refills ICaps AREDS oral tablet, 1 tab(s), Oral, BID magnesium oxide, 500 mg, Oral, Bedtime MetFORMIN (Eqv-Glucophage XR) 500 mg oral tablet, extended release, See Instructions Milk of Magnesia, 1200 mg, Oral, PRN Nasal Mist, 2 spray(s), Nasal, PRN nitroglycerin, 0.4 mg, SubLingual, q5min, PRN potassium chloride, 10 mEq, Oral, Every other day Refresh, 1 drop(s), Eye-Both, PRN senna, 8.6 mg, Oral, BID, PRN spironolactone 25 mg Tab, 25 mg= 1 tab(s), Oral, Daily tolterodine 4 mg Cap-ER, 4 mg= 1 cap(s), Oral, Daily, 3 refills Toprol-XL, 25 mg, Oral, Daily Tussin DM Sugar Free, 10 mL, PRN valsartan, 40 mg, Oral, Daily Vitamin B12, 1000 mcg, Oral, Daily Vitamin C 500 mg Tab, 500 mg= 1 tab(s), Oral, Daily Allergies No Known Allergies Social History Alcohol - Denies Alcohol Use, 01/31/2015 Substance Abuse - Denies Substance Abuse, 01/31/2015 Tobacco - Denies Tobacco Use, 01/31/2015 Never (less than 100 in lifetime) Tobacco Use:. Never Smokeless Tobacco Use:. Cigarettes, Household tobacco concerns: No., 01/20/2024 Family History COPD: Sister. Cardiac arrhythmia: Brother. Diabetes mellitus type 2: Mother. Heart failure: Mother. Hyperthyroidism: Mother. Metastatic cancer: Father and Brother. Stroke: Mother. Screenings and Assessments 01/16/24 09:44:00 Result Name Value Comment Phone Call Monitoring Consent Agreed to continue call Phone Verification Patient Information Full name, street address and date of verified CM Program Enrollment Provides verbal consent for enrollment Goals and Interventions Care Plan Progress Note TCM#3- Patient states he is doing 'pretty good.' Reports BP has been good and HR usually in the upper 60's. Patient notes BS have been pretty good, noting once in a while at night it will go up a bit. Patient does report 'a lot of SOB,' the same as when he left the hospital. Patient is scheduled for PCI tomorrow with Dr. Maciel. Patient denies any weight gain. Notes since he has been eating eating healthier he has been losing weight. Denies any swelling to LE. Patient noted while in hospital the numbness in his feet completely went away. Patient notes since being back in his own bed this has came back. CN discussed some postural changes/ suggestions to try at night to see if improves. Patient has not heard from and does not qualify for . CN discussed enrollment with CCM program, patient would like to enroll once TCM complete. Patient denies any further questions or concerns. Communication Events Date: February 03, 2024 Method: Phone call Type: Outbound Duration (min): 19 Outcome: Case discussion Contact Type: coordinator skill training program Contact Name: Wayne uNnes Notes: TCM#3- see tcm note. Created By: Wayne Nunes Date: January 27, 2024 Method: Phone kathryn (more content not included)... 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 Referral Reason: Care coordination Case Type: Transition Care Management Risk Score: -- Case Status: Enrolled (January 16, 2024) Date Assigned: January 16, 2024 Assigned By: Wayne Nunes Date Enrolled: January 16, 2024 Assigned Primary Personnel: Wayne Nunes Assigned Secondary Personnel: -- Case Physician: Paty Guevara Problems Ongoing Anticoagulated Atrial fibrillation BMI 45.0-49.9, adult BPH with urinary obstruction Chronic GERD Depression Diabetes Establishing care with new doctor, encounter for Family history of prostate cancer Fluid retention Forgetfulness Hypertension Morbid obesity Nocturia Non-ST elevated myocardial infarction (non-STEMI) 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 Home Medications Albuterol (Eqv-Ventolin HFA) 90 mcg/inh inhalation aerosol, See Instructions aspirin, 81 mg, Chewed, Daily atorvastatin, 80 mg, Oral, Bedtime bumetanide, 1 mg, Oral, Daily clopidogrel, 75 mg, Oral, Daily Dulera 100 mcg-5 mcg/inh inhalation aerosol, 2 puff(s), Inhalation, BID, 11 refills Eliquis, 5 mg, Oral, BID Farxiga, 10 mg, Oral, Daily fluticasone, 50 mcg, Inhalation, PRN Freestyle Marshal 2 Flash Glucose Monitoring 14 Day System (Staples), See Instructions freestyle marshal 2 sensors, See Instructions, 6 refills Freestyle Marshal 3 Flash Glucose Monitoring 14 Day System (Sensor), See Instructions, 1 refills Freestyle Marshal 3 sensors, See Instructions, 1 refills ICaps AREDS oral tablet, 1 tab(s), Oral, BID magnesium oxide, 500 mg, Oral, Bedtime MetFORMIN (Eqv-Glucophage XR) 500 mg oral tablet, extended release, See Instructions Milk of Magnesia, 1200 mg, Oral, PRN Nasal Mist, 2 spray(s), Nasal, PRN nitroglycerin, 0.4 mg, SubLingual, q5min, PRN potassium chloride, 10 mEq, Oral, Every other day Refresh, 1 drop(s), Eye-Both, PRN senna, 8.6 mg, Oral, BID, PRN spironolactone 25 mg Tab, 25 mg= 1 tab(s), Oral, Daily tolterodine 4 mg Cap-ER, 4 mg= 1 cap(s), Oral, Daily, 3 refills Toprol-XL, 25 mg, Oral, Daily Tussin DM Sugar Free, 10 mL, PRN valsartan, 40 mg, Oral, Daily Vitamin B12, 1000 mcg, Oral, Daily Vitamin C 500 mg Tab, 500 mg= 1 tab(s), Oral, Daily Allergies No Known Allergies Social History Alcohol - Denies Alcohol Use, 01/31/2015 Substance Abuse - Denies Substance Abuse, 01/31/2015 Tobacco - Denies Tobacco Use, 01/31/2015 Never (less than 100 in lifetime) Tobacco Use:. Never Smokeless Tobacco Use:. Cigarettes, Household tobacco concerns: No., 01/20/2024 Family History COPD: Sister. Cardiac arrhythmia: Brother. Diabetes mellitus type 2: Mother. Heart failure: Mother. Hyperthyroidism: Mother. Metastatic cancer: Father and Brother. Stroke: Mother. Screenings and Assessments 01/16/24 09:44:00 Result Name Value Comment Phone Call Monitoring Consent Agreed to continue call Phone Verification Patient Information Full name, street address and date of verified CM Program Enrollment Provides verbal consent for enrollment Goals and Interventions Care Plan Progress Note TCM#2- Patient states he is feeling 'pretty good.' Patient does report his right shoulder has been 'really sore.' Notes increased pain when lifts above his head. Rates 4-5/10. Patient denies any previous injury and notes it started in the hospital. He thinks it is from the hospital bed. Patient adds that it is 'aggravating.' He can not recall what he has in home for pain. CN recommended tylenol as needed and ice and/or heat for relief, patient verbalized understanding. CN advised to avoid NSAIDS d/t ASA/Eliquis/Plavix. Patient denies any CP, palps, lightheadedness. Patient does report some SOB if going to get mail or walking to his garage to sit, notes worse with humidity and heat. Patient has stayed inside and took it easy over the last 2 days d/t to weather. Patient denies wgt gain, notes some weight loss. States there is 'not really any swelling' in his legs. Patient notes his sister and him went grocery shopping and he did get some healthier food options. Patient noted he is staying away from salt. BP 117/76. CN discussed how to properly check BP at home. Reviewed symptoms of low BP. Patient reports left radial access site is 'clearing up.' Patient notes bruisi (more content not included)... Normal [facility] Ambulatory Visit Summaryon 0 01-20-2024 Ambulatory Visit Summary Ambulatory Visit Summary HUANG ROBLES :1955 Visit Date:01/20/2024 Ambulatory Visit Instructions Your Diagnosis Non-smoker BMI 45.0-49.9, adult Your Care Team Attending Physician - Paty Guevara Primary Care Physician - Paty Guevara This Is Your Medications List Misc Prescription (Freestyle Marshal 2 Flash Glucose Monitoring 14 Day System (Staples)) Misc Prescription (freestyle marshal 2 sensors) albuterol (Albuterol (Eqv-Ventolin HFA) 90 mcg/inh inhalation aerosol) apixaban (Eliquis) ascorbic acid (Vitamin C 500 mg Tab) aspirin atorvastatin bumetanide clopidogrel cyanocobalamin (Vitamin B12) dapagliflozin (Farxiga) dextromethorphan-guaifenes in (Tussin DM Sugar Free) esomeprazole (esomeprazole 20 mg Cap-DR) fluticasone formoterol-mometasone (Dulera 100 mcg-5 mcg/inh inhalation aerosol) magnesium hydroxide (Milk of Magnesia) magnesium oxide metformin (MetFORMIN (Eqv-Glucophage XR) 500 mg oral tablet, extended release) metoprolol (Toprol-XL) multivitamin with minerals (ICaps AREDS oral tablet) nitroglycerin ocular lubricant (Refresh) oxymetazoline nasal (Nasal Mist) potassium chloride senna senna (Senna) spironolactone (spironolactone 25 mg Tab) tolterodine (tolterodine 4 mg Cap-ER) torsemide valsartan Procedures Performed Colonoscopy (05/13/2019), Laparoscopic cholecystectomy (04/03/2019), TURP - Transurethral resection of prostate (12/15/2015), Urodynamics (11/02/2015), Total hip replacement (09/08/2015), left total knee arhroplasty (05/10/2015), right total knee arthroplasty (02/22/2015), Cataract, Endoscopic retrograde cholangiopancreatography (ERCP) not completed due to anatomical derangements from previous surgery, Rotator cuff repair, Tonsillectomy. Discharge Vitals Temperature (Temporal Artery) 36.2 ?C Heart Rate (Peripheral) 74 Respiratory Rate 20 Blood Pressure 128/86 Height 174.0 cm Height 69 in Weight 130.00 kg Weight 286 lb BMI 42.94 What to do next Scheduled Follow-Up Appointments Saturday 10:00 AM EDT With: Paty Guevara Where: [address] [address]- 2023 9:30 AM EDT With: Where: [address] [id number]- Saturday 10:00 AM EDT With: April DAVIDSON, Dayan Moore Where: [facility] Saturday 8:45 AM EST With: Karissa BANKS MD Where: [facility] [address] [place], [place] [id number]- Medications What How Much When Why Instructions Unchanged albuterol (Albuterol (Eqv-Ventolin HFA) 90 mcg/ inh inhalation aerosol) See instructions INHALE 2 PUFFS BY MOUTH EVERY 4 HOURS NEEDED Unchanged apixaban (Eliquis) 5 Milligram By Mouth 2 times a day Unchanged ascorbic acid (Vitamin C 500 mg Tab) 2 Tablets By Mouth Every day Unchanged aspirin 81 Milligram Chewed Every day Unchanged atorvastatin 80 Milligram By Mouth At bedtime Unchanged bumetanide 1 Milligram By Mouth Every day Unchanged clopidogrel 75 Milligram By Mouth Every day Unchanged cyanocobalamin (Vitamin B12) 100 Microgram By Mouth Every day Unchanged dapagliflozin (Farxiga) 10 Milligram By Mouth Every day Unchanged dextromethorphan-guaifenes in (Tussin DM Sugar Free) 10 Milliliter As needed for Congestion Unchanged esomeprazole (esomeprazole 20 mg Cap-DR) ORAL, 0 Refill(s), Take by mouth. Unchanged fluticasone 50 Microgram Inhalation As needed for Allergy symptoms Unchanged formoterol-mometasone (Dulera 100 mcg-5 mcg/ inh inhalation aerosol) 2 Puffs Inhalation 2 times a day COPD mixed type Duration: 30 Days Unchanged magnesium hydroxide (Milk of Magnesia) 1,200 Milligram By Mouth As needed for as needed for constipation Unchanged magnesium oxide 500 Milligram By Mouth At bedtime Unchanged metformin (MetFORMIN (Eqv-Glucophage XR) 500 mg oral tablet, extended release) See instructions TAKE 1 TABLET BY MOUTH TWICE A DAY FOR 90 DAYS Unchanged metoprolol (Toprol-XL) 25 Milligram By Mouth Every day Unchanged Misc Prescription (Freestyle Marshal 2 Flash Glucose Monitoring 14 Day System (Staples)) See instructions Type 2 diabetes mellitus Freestyle Marshal 2 Flash Glucose Monitoring 14 Day System (Staples) Unchanged Misc Prescription (freestyle marshal 2 sensors) See instructions Type 2 diabetes mellitus check blood sugar 4 times per day Unchanged multivitamin with minerals (ICaps AREDS oral tablet) 1 Tablets By Mouth Every day Unchanged nitroglycerin 0.4 Milligram Sublingual Every 5 minutes as needed for Chest pain Duration: 3 Doses Unchanged ocular lubricant (Refresh) 1 Drops Both eyes As needed for Dry eyes Unchanged oxymetazoline nasal (Nasal Mist) 2 Sprays Nasal Inhalation As needed for Allergy symptoms Unchanged (more content not included)... Normal [facility] Family Medicine Office/Clini c Noteon 01-20-2024 Family Medicine Office/Clinic Note Family Medicine Office/Clinic Note HPI Staff Huang is a 68 year old male presenting ER followup: Hospital: [facility] Visit date: 01/12/24 Symptoms the patient presented with: Chest pain, had heart attack Current concerns: would like to go over everything with you today Transferred [facility] on 01/11- Stent put in states he has 2 blocked arteries Sees [facility] on 01/22/24 History of Present Illness pt presents today for TCM Review of Systems PHQ Score Initial Depression Screen Score: 0 SCORE Physical Exam Vitals & Measurements T: 36.2 ?C(Temporal Artery) HR: 74(Peripheral) RR: 20 BP: 128/86 SpO2: 93% HT: 69 in HT: 174.0 cm WT: 130.00 kg WT: 286 lb BMI: 42.94 General: alert, no acute distress ENMT: oral mucosa moist, no pharyngeal erythema or exudate Cardiovascular: regular rate and rhythm, normal peripheral perfusion Respiratory: Lungs CTA, respirations non labored Extremities: no deformity, no trauma Neurological: oriented x 4, LOC appropriate for age, CN II-XII intact, motor strength equal & normal bilaterally, speech normal Assessment/Plan 1. Non-ST elevated myocardial infarction (non-STEMI) (I21.4: Non-ST elevation (NSTEMI) myocardial infarction) pt presents today for TCM follow up. Had NSTEMI with placement of stent. pt states he is feeling ok. his sister is with him and has many concerns. she has health issues of her own and she is unable to take care of him anymore. she is requesting that home health come in for evaluation. he needs help with basic daily activities and really needs help with medication set up. pt is following up with cardiology on Saturday. they have questions about cardiac rehab. He would like to do it in [place] if possible. RTC 1 month Ordered: Misc Prescription, Freestyle Marshal 3 Flash Glucose Monitoring 14 Day System (Sensor), See Instructions, 6 EA, 1, Freestyle Marshal 3 Flash Glucose Monitoring 14 Day System (Sensor). Replace sensor every 14 days., [id number], Supply, 174, cm, 01/20/24 10:48:00 EDT,... Ambulatory Home Health Orders [facility] Internal Ambulatory Referral Large [employer] - Ambulatory Referral [facility] 7 day disch [id number] 2. Forgetfulness (R68.89: Other general symptoms and signs) sister states she is concerned about his forgetfulness. pt gets very angry and starts yelling at his sister. he says he is fine. discussed neuro consult. and patient gets very upset and says, I'm fine . at end of visit his sister (caregiver) stayed behind and asked that I still put the neuro consult in. She does not feel it is safe for him to be home alone. will place referral to [facility]. not sure if he will actually go to appointment Ordered: Misc Prescription, Freestyle Marshal 3 Flash Glucose Monitoring 14 Day System (Sensor), See Instructions, 6 EA, 1, Freestyle Marshal 3 Flash Glucose Monitoring 14 Day System (Sensor). Replace sensor every 14 days., [id number], Supply, 174, cm, 01/20/24 10:48:00 EDT,... Ambulatory Home Health Orders [facility] External Ambulatory Referral [employer] - Ambulatory Referral [facility] 7 day disch [id number] 3. 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 caregiver is physically and emotionally exhausted from his behavior. Ordered: Misc Prescription, Freestyle Marshal 3 Flash Glucose Monitoring 14 Day System (Sensor), See Instructions, 6 EA, 1, Freestyle Marshal 3 Flash Glucose Monitoring 14 Day System (Sensor). Replace sensor every 14 days., [id number], Supply, 174, cm, 01/20/24 10:48:00 EDT,... Ambulatory Home Health Orders [facility] External Ambulatory Referral [employer] - Ambulatory Referral [facility] 7 day disch [id number] 4. Type 2 diabetes mellitus (E11.9: Type 2 diabetes mellitus without complications) diabetic education/nutrition consult placed Ordered: Misc Prescription, Freestyle Marshal 3 Flash Glucose Monitoring 14 Day System (Sensor), See Instructions, 6 EA, 1, Freestyle Marshal 3 Flash Glucose Monitoring 14 Day System (Sensor). Replace sensor every 14 days., [id number], Supply, 174, cm, 01/20/24 10:48:00 EDT,... Misc Prescription, Freestyle Marshal 3 sensors, See Instructions, 12 EA, 1, change as needed, [id number], Supply, 174, cm, 01/20/24 10:48:00 EDT, Height/Length Dosing, 130, kg, 01/20/24 10:48:00 EDT, Weight Dosing [facility] Internal Ambulatory Referral [facility] 7 day disch [id number] 5. BMI 45.0-49.9, adult (Z68.42: Body mass index [BMI] 45.0-49.9, adult) BMI education given Ordered: Misc Prescription, Freestyle Marshal 3 Flash Glucose Monitoring 14 Day System (Sensor), See Instructions, 6 EA, 1, Freestyle Marshal 3 Flash Glucose Monitoring 14 Day System (Sensor). Replace sensor every 14 days., [id number], Supply, 174, cm, 01/20/24 10:48:00 EDT,... Misc Prescription, Freestyle Marshal 3 sensors, See Instructions, 12 EA, 1, change as needed, [id number], Supply, 174, cm (more content not included)... Normal [facility] Comment on above: Result Comment: Elec tronically Signed By: Paty Guevara\.br\Date and Time Signed: 01/20/24 13:03 EDT 36on 01-17-2024 36 Post Discharge Call Good afternoon, I am Hoda Longoria RN a lead nurse from [facility]. I am calling you to follow up on your stay with us and make sure all of your questions have been answered. You will be receiving a survey either electronic or via mail and we always aim to receive 9???s and 10???s. If there is any reason you feel as though you cannot give us these scores please indicate that now. 1. How have you been feeling since being discharged from the hospital? I am still short of breath, but feeling better. 2. Did you understand your discharge instructions when they were given to prior to leaving? Yes Were you given an opportunity to ask questions? Yes 3. While a patient in the hospital, was your call light answered in a timely manner? Yes-did note that call lights were not being answered quickly some of the time, but patient did note that he noticed how busy the unit was and was understanding. 4. Do have access to all medications that were prescribed to you at discharge? Yes 5. How would you rate your overall stay on a scale of 0-10, 10 being the best experience you have ever had. 10 6. Do you have any further questions you would like to discuss? No-stated that the entire staff was great. Patient Name Huang Robles Date 01/16/2024 Normal [facility] Telephoneon 01-17-2024 Telephone [id number] Armaan Robles 1955 Date Provider Department Center 01/17/2024 1600-HODA LONGORIA [facility] C Family History Problem Relation Age of Onset Prostate cancer Father Family Status - Relation Status Age at Father Reason for Visit and Comments: Hospital Follow-up [832] [facility] 36on 01-16-2024 36 Pt dc to home on 12/23 Spoke to pts sister on 01/16/2024 Pt has his own access liaison in [place] and will be following up with her, [facility] appts canceled per pt request Pts sister refuses med rec, states she will discuss meds with his cardilogist [facility] Documentationon 01-16-2024 Documentation [id number] Armaan Robles 1955 M Date Provider Department Center 01/16/2024 [id number] [facility] V[facility] LAB MS HeartVAS Family History Problem Relation Age of Onset Prostate cancer Father Family Status - Relation Status Age at Father Reason for Visit and Comments: HF inpatient satisfaction survey sent. [Other] [facility] BASIC METABOLIC PANELon 12-23 Anion gap [Moles/Vol] 14 mmol/L Normal 7-20 [facility] Comment on above: Performed By: #### L [id number] #### [facility] HOSPITAL LAB (BEAKER) [address] [place] [address] Calcium [Mass/Vol] 8.6 mg/dL Normal 8.6-10.3 [facility] Comment on above: Performed By: #### L [id number] #### [facility] ([facility]) [address] [place] [address] Chloride [Moles/Vol] 100 mmol/L Normal 98-107 [facility] Comment on above: Performed By: #### L [id number] #### [facility] ([facility]) [address] [place] [address] CO2 [Moles/Vol] 24 mmol/L Normal 21-31 [facility] Comment on above: Performed By: #### L [id number] #### [facility] ([facility]) [address] [facility] [place] [address] Creatinine [Mass/Vol] 0.74 mg/dL Normal 0.70-1.30 [facility] Comment on above: Performed By: #### L [id number] #### [facility] ([facility]) [address] [place] [address] GLOMERULAR FILTRATION RATE ML/MIN/1.73 SQ M.PREDICTED 98.7 mL/min/1.73m*2 Normal >60.0 [facility] Comment on above: Result Comment: The [facility]???s estimated glomerular filtration rate (eGFR) will no longer include consideration of race in its calculation. The National Kidney Foundation???s eGFR Task Force developed new recommendations for the estimation of the glomerular filtration rate in the [place] They recommend immediate implementation of the new equation refit without the race variable in all laboratories because the calculation does not include race. In addition to not including race in the calculation and reporting, it included diversity in its development, and has acceptable performance characteristics and potential consequences that do not disproportionately affect any one group of individuals. Performed By: #### L [id number] #### [facility] ([facility]) [address] [place] [address] Glucose [Mass/Vol] 136 mg/dL High 70-100 [facility] Comment on above: Performed By: #### L [id number] #### [facility] ([facility]) [address] [place] [address] Potassium [Moles/Vol] 3.3 mmol/L Low 3.5-5.1 [facility] Comment on above: Performed By: #### L [id number] #### [facility] ([facility]) [address] [place] [address] Sodium [Moles/Vol] 135 mmol/L Low 136-145 [facility] Comment on above: Performed By: #### L [id number] #### [facility] ([facility]) [address] [facility] [place] [address] Urea nitrogen [Mass/Vol] 10 mg/dL Normal 7-25 [facility] Comment on above: Performed By: #### L [id number] #### [facility] ([facility]) [address] [place] [address] UREA NITROGEN/CREATININE (MASS RATIO) IN SER/PLAS 13.5 Normal [facility] Comment on above: Performed By: #### L [id number] #### [facility] ([facility]) [address] [place] [address] CBCon 01-15-2024 Erythrocyte distribution width (RBC) [Ratio] 13.4 % Normal 11.5-15.0 [facility] Comment on above: Performed By: #### L [id number] #### [facility] ([facility]) [address] [place] [address] ERYTHROCYTE MEAN CORPUSCULAR HEMOGLOBIN CONCENTRATION (G/DL) BY AUTOMATED 33.9 g/dL Normal 32.0-35.0 [facility] Comment on above: Performed By: #### L [id number] #### [facility] ([facility]) [address] [place] [address] Hematocrit (Bld) [Volume fraction] 39.5 % Normal 39.0-55.0 [facility] Comment on above: Performed By: #### L [id number] #### [facility] ([facility]) [address] [place] [address] Hemoglobin (Bld) [Mass/Vol] 13.4 g/dL Normal 13.0-17.0 [facility] Comment on above: Performed By: #### L [id number] #### [facility] ([facility]) [address] [place] [address] MCH (RBC) [Entitic mass] 31.4 pg Normal 27.0-33.0 [facility] Comment on above: Performed By: #### L [id number] #### [facility] ([facility]) [address] [place] [address] MCV (RBC) [Entitic vol] 92.5 fL Normal 82.0-98.0 [facility] Comment on above: Performed By: #### L [id number] #### [facility] ([facility]) [address] [place] [address] PLATELETS (10*3/UL) IN BLOOD AUTOMATED COUNT 223 10*3/uL Normal 150-400 [facility] Comment on above: Performed By: #### L [id number] #### [facility] ([facility]) [address] [place] [address] RBC (Bld) [#/Vol] 4.27 10*6/uL Normal 4.20-5.70 [facility] Comment on above: Performed By: #### L [id number] #### [facility] ([facility]) [address] [place] [address] WBC (Bld) [#/Vol] 8.39 10*3/uL Normal 4.00-10.60 [facility] Comment on above: Performed By: #### L [id number] #### [facility] ([facility]) [address] [place] [address] Letter (Out)on 01-15-2024 Letter (Out) [id number] Armaan Robles 1955 M Date Provider Department [place] 01/15/2024 [id number], GENERIC PRO*INIT None Family History Problem Relation Age of Onset Prostate cancer Father Family Status - Relation Status Age at Father Normal [facility] POCT GLUCOSE METER UNSOLICIT ED RESULTSon 01-15-2024 Glucose [Mass/Vol] 184 mg/dL High 70-105 [facility] Comment on above: Order Comment: Waive d Testing in the ED is performed under the ED CLIA certificate #[id number]. Result Comment: [email or web address] Performed By: #### L [id number] ####[facility] ([facility])[address] [facility] [place] [address] Glucose [Mass/Vol] 120 mg/dL High 70-105 [facility] Comment on above: Order Comment: Waive d Testing in the ED is performed under the ED CLIA certificate #[id number]. Result Comment: [email or web address] Performed By: #### L [id number] ####[facility] ([facility])[address] [place] [address] 30on 01-14-2024 30 The patient is Moder ately Stable - Low risk of patient condition declining or worsening The patient's goals for the shift include comfort/rest The clinical goals for the shift include VSS Problem: Pain - Adult Goal: Verbalizes/displays adequate comfort level or baseline comfort level Outcome: Progressing Problem: Safety - Adult Goal: Free from fall injury Outcome: Progressing Problem: Neurosensory - Adult Goal: Achieves stable or improved neurological status Outcome: Progressing Problem: Cardiovascular - Adult Goal: Maintains optimal cardiac output and hemodynamic stability Outcome: Progressing Flowsheets (Taken 01/14/20241954) Maintains optimal cardiac output and hemodynamic stability: Monitor blood pressure and heart rate Normal [facility] 30 The patient is Moder ately Stable - Low risk of patient condition declining or worsening The patient's goals for the shift include Comfort The clinical goals for the shift include Hemodynamically stable, comfort, pain control Over the shift, the patient did not make progress toward the following goals. Barriers to progression include cardiology clearance and transportation home. Recommendations to address these barriers include social work set up ride Problem: Pain - Adult Goal: Verbalizes/displays adequate comfort level or baseline comfort level Outcome: Progressing Flowsheets (Taken 01/14/2024799) Verbalizes/displays adequate comfort level or baseline comfort level: Encourage patient to monitor pain and request assistance Problem: Safety - Adult Goal: Free from fall injury Outcome: Progressing Flowsheets (Taken 01/14/2024799) Free from fall injury: Assess patient frequently for physical needs Problem: Discharge Planning Goal: Discharge to home or other facility with appropriate resources Outcome: Progressing Flowsheets (Taken 01/14/2024799) Discharge to home or other facility with appropriate resources: Identify barriers to discharge with patient and caregiver Problem: Chronic Conditions and Co-morbidities Goal: Patient's chronic conditions and co-morbidity symptoms are monitored and maintained or improved Outcome: Progressing Flowsheets (Taken 01/14/2024799) Care Plan - Patient's Chronic Conditions and Co-Morbidity Symptoms are Monitored and Maintained or Improved: Monitor and assess patient's chronic conditions and comorbid symptoms for stability, deterioration, or improvement Problem: Neurosensory - Adult Goal: Achieves stable or improved neurological status Outcome: Progressing Flowsheets (Taken 01/14/2024799) Achieves stable or improved neurological status: Assess for and report changes in neurological status Problem: Respiratory - Adult Goal: Achieves optimal ventilation and oxygenation Outcome: Progressing Flowsheets (Taken 01/14/2024799) Achieves optimal ventilation and oxygenation: Assess for changes in respiratory status Problem: Cardiovascular - Adult Goal: Maintains optimal cardiac output and hemodynamic stability Outcome: Progressing Flowsheets (Taken 01/14/2024799) Maintains optimal cardiac output and hemodynamic stability: Monitor blood pressure and heart rate Goal: Absence of cardiac dysrhythmias or at baseline Outcome: Progressing Flowsheets (Taken 01/14/2024799) Absence of cardiac dysrhythmias or at baseline: Monitor cardiac rate and rhythm Problem: Skin/Tissue Integrity - Adult Goal: Skin integrity remains intact Outcome: Progressing Flowsheets (Taken 01/14/2024799) Skin integrity remains intact: Monitor for areas of redness and/or skin breakdown Goal: Incisions, wounds, or drain sites healing without S/S of infection Outcome: Progressing Flowsheets (Taken 01/14/2024799) Incisions, wounds, or drain sites healing without sign and symptoms of infection: ADMISSION and DAILY: Assess and document risk factors for pressure ulcer development Problem: Gastrointestinal - Adult Goal: Minimal or absence of nausea and vomiting Outcome: Progressing Flowsheets (Taken 01/14/2024799) Minimal or absence of nausea and vomiting: Administer IV fluids as ordered to ensure adequate hydration Goal: Maintains or returns to baseline bowel function Outcome: Progressing Flowsheets (Taken 01/14/2024799) Maintains or returns to baseline bowel function: Assess bowel function Goal: Maintains adequate nutritional intake Outcome: Progressing Flowsheets (Taken 01/14/2024799) Maintains adequate nutritional intake: Monitor percentage of each meal consumed Problem: Genitourinary - Adult Goal: Absence of urinary retention Outcome: Progressing Flowsheets (Taken 01/14/2024799) Absence of urinary retention: Assess patient???s ability to void and empty bladder Problem: Infection - Adult Goal: Absence of infection at discharge Outcome: Progressing Flowsheets (Taken 01/14/2024799) Absence of infection at discharge: Assess and monitor for signs and symptoms of infection Goal: Absence of infection during hospitalization Outcome: Progressing Problem: Metabolic/Fluid and Electrolytes - Adult Goal: Electrolytes maintained within normal limits Outcome: Progressing Flowsheets (Taken 01/14/2024 08) Electrolytes maintained within normal limits: Monitor labs and assess patient for signs and symptoms of electrolyte imbalances Goal: Hemodynamic stability and optimal renal function maintained Outcome: Progressing Flowsheets (Taken 01/14/2024 08) Hemodynamic stability and optimal renal function maintained: Monitor labs and assess for signs and symptoms of volume excess or deficit Goal: Glucose maintained within prescribed range Outcome: Progressing Flowsheets (Taken 01/14/2024 08) Glucose maintained within prescrib (more content not included)... Normal [facility] 30 Daily Case Managemen t Update Multidisciplinary rounds have been completed. Barriers to Discharge: Pending medical clearance for discharge. Pending Cardiology clearance. Discharge plan is home when medically ready; pending PT/OT recommendations. Diet: Dietary Orders (From admission, onward) Start Ordered 01/13/24 1644 Regular Diet Heart Healthy/HTN, CABG,Stroke, (2gNA, low fat, low cholesterol); Diabetic Male (carb 60g/meal) Diet effective now Question Answer Comment Room Service? Yes Fat restriction: Heart Healthy/HTN, CABG,Stroke, (2gNA, low fat, low cholesterol) Carbohydrate restriction: Diabetic Male (carb 60g/meal) 01/13/24 1643 Physician Expected Discharge Date: 01/15/2024 Discharge Delays: PT Six Click Score: 18 OT Six Click Score: PT Recommendations: OT Recommendations: New Consults: Ancillary Consults (From admission, onward) Start Ordered 01/14/24 0758 Consult to Nutrition Services Once Provider: (Not yet assigned) Question: Reason for Consult? Answer: CHF 01/14/24 0758 [facility] 30 The patient is Moder ately Stable - Low risk of patient condition declining or worsening The patient's goals for the shift include comfort The clinical goals for the shift include safety Normal [facility] BASIC METABOLIC PANELon 12-23 Anion gap [Moles/Vol] 14 mmol/L Normal - [facility] Comment on above: Performed By: #### L [id number] #### [facility] ([facility]) [address] [place] [address] Calcium [Mass/Vol] 8.6 mg/dL Normal 8.6-10.3 [facility] Comment on above: Performed By: #### L [id number] #### [facility] ([facility]) [address] [place] [address] Chloride [Moles/Vol] 100 mmol/L Normal 98-107 [facility] Comment on above: Performed By: #### L [id number] #### [facility] ([facility]) [address] [place] [address] CO2 [Moles/Vol] 26 mmol/L Normal 21-31 [facility] Comment on above: Performed By: #### L [id number] #### [facility] ([facility]) [address] [place] [address] Creatinine [Mass/Vol] 0.81 mg/dL Normal 0.70-1.30 [facility] Comment on above: Performed By: #### L [id number] #### [facility] ([facility]) [address] [place] [address] GLOMERULAR FILTRATION RATE ML/MIN/1.73 SQ M.PREDICTED 96.0 mL/min/1.73m*2 Normal >60.0 [facility] Comment on above: Result Comment: The [facility]???s estimated glomerular filtration rate (eGFR) will no longer include consideration of race in its calculation. The National Kidney Foundation???s eGFR Task Force developed new recommendations for the estimation of the glomerular filtration rate in the [place] They recommend immediate implementation of the new equation refit without the race variable in all laboratories because the calculation does not include race. In addition to not including race in the calculation and reporting, it included diversity in its development, and has acceptable performance characteristics and potential consequences that do not disproportionately affect any one group of individuals. Performed By: #### L [id number] #### [facility] ([facility]) [address] [place] [address] Glucose [Mass/Vol] 151 mg/dL High 70-100 [facility] Comment on above: Performed By: #### L [id number] #### [facility] ([facility]) [address] [place] [address] Potassium [Moles/Vol] 3.5 mmol/L Normal 3.5-5.[address] [facility] Comment on above: Performed By: #### L [id number] #### [facility] ([facility]) [address] [place] [address] Sodium [Moles/Vol] 136 mmol/L Normal 136-145 [facility] Comment on above: Performed By: #### L [id number] #### [facility] ([facility]) [address] [place] [address] Urea nitrogen [Mass/Vol] 8 mg/dL Normal 7-25 [facility] Comment on above: Performed By: #### L [id number] #### [facility] ([facility]) [address] [place] [address] UREA NITROGEN/CREATININE (MASS RATIO) IN SER/PLAS 9.9 Normal [facility] Comment on above: Performed By: #### L [id number] #### [facility] ([facility]) [address] [place] [address] CBCon 01-14-2024 Erythrocyte distribution width (RBC) [Ratio] 13.3 % Normal 11.5-15.0 [facility] Comment on above: Performed By: #### L [id number] ####[facility] ([facility])[address] [place] [address] ERYTHROCYTE MEAN CORPUSCULAR HEMOGLOBIN CONCENTRATION (G/DL) BY AUTOMATED 33.6 g/dL Normal 32.0-35.0 [facility] Comment on above: Performed By: #### L [id number] ####[facility] ([facility])[address] [place] [address] Hematocrit (Bld) [Volume fraction] 40.2 % Normal 39.0-55.0 [facility] Comment on above: Performed By: #### L [id number] ####[facility] ([facility])[address] [place] [address] Hemoglobin (Bld) [Mass/Vol] 13.5 g/dL Normal 13.0-17.0 [facility] Comment on above: Performed By: #### L [id number] ####[facility] ([facility])[address] [place] [address] MCH (RBC) [Entitic mass] 31.3 pg Normal 27.0-33.0 [facility] Comment on above: Performed By: #### L [id number] ####[facility] ([facility])[address] [place] [address] MCV (RBC) [Entitic vol] 93.3 fL Normal 82.0-98.0 [facility] Comment on above: Performed By: #### L [id number] ####[facility] ([facility])[address] [place] [address] PLATELETS (10*3/UL) IN BLOOD AUTOMATED COUNT 250 10*3/uL Normal 150-400 [facility] Comment on above: Performed By: #### L [id number] ####[facility] ([facility])[address] [place] [address] RBC (Bld) [#/Vol] 4.31 10*6/uL Normal 4.20-5.70 [facility] Comment on above: Performed By: #### L [id number] ####[facility] ([facility])[address] [place] [address] WBC (Bld) [#/Vol] 9.62 10*3/uL Normal 4.00-10.60 [facility] Comment on above: Performed By: #### L [id number] ####[facility] ([facility])[address] [place] [address] CONSULTon 01-14-2024 CONSULT Clinical Nutrition Assessment: Name: Huang Robles Room: 313[facility] Date: 1955 Date of Visit: 01/14/24 Admission Dx: NSTEMI (non-ST elevated myocardial infarction) (CMS/HCC) [I21.4] Reason for assessment: consult for HF diet ed Information obtained from: patient, medical record, and nursing Past Medical History: Diagnosis Date Anemia in other chronic diseases classified elsewhere 02/25/2015 Asthma 09/05/2023 BPH with urinary obstruction 01/12/2024 Choledocholithiasis 01/12/2024 Chronic GERD 01/12/2024 Chronic ischemic heart disease, unspecified 02/25/2015 Class 3 severe obesity due to excess calories with serious comorbidity and body mass index (BMI) of 45.0 to 49.9 in adult ([facility]) 10/03/2023 Constipation 01/12/2024 Depression 01/12/2024 Developmental disability 10/15/2023 Fibromyalgia 05/15/2015 Macular degeneration 10/03/2023 Onychomycosis 10/03/2023 MIKAYLA (obstructive sleep apnea) 10/03/2023 Osteoarthritis 01/12/2024 rght knee Paroxysmal atrial fibrillation ([facility]) 06/10/2015 Primary hypertension 02/25/2015 Last Assessment & Plan: Optimal in office Type 2 diabetes mellitus without complications ([facility]) 02/25/2015 Venous insufficiency of both lower extremities 10/03/2023 Current Medications: apixaban, 5 mg, oral, BID aspirin, 81 mg, oral, Daily with breakfast atorvastatin, 80 mg, oral, Nightly bumetanide, 1 mg, oral, Daily clopidogrel, 75 mg, oral, Daily dapagliflozin propanediol, 10 mg, oral, Daily insulin lispro, 0-5 Units, subcutaneous, TID with meals And insulin lispro, 0-4 Units, subcutaneous, Nightly metoprolol succinate XL, 25 mg, oral, Daily oxybutynin XL, 10 mg, oral, Nightly Oxygen Therapy, , inhalation, Continuous spironolactone, 25 mg, oral, Daily valsartan, 40 mg, oral, Daily Labs: 0 Lab Value Date/Time POCGLU 178 (H) 01/14/2024 1144 BUN 8 01/14/2024 0452 CREATININE 0.81 01/14/2024 0452 NA 136 01/14/2024 0452 K 3.5 01/14/2024 0452 MG 2.0 01/13/2024 0235 HGB 13.5 01/14/2024 0452 WBC 9.62 01/14/2024 0452 CHOL 108 (L) 01/13/2024 0235 HDL 28 01/13/2024 0235 I/O: Intake/Output Summary (Last 24 hours) at 01/14/2024 1238 Last data filed at 01/14/2024 1050 Gross per 24 hour Intake 1270 ml Output 1150 ml Net 120 ml Allergies: No Known Allergies Nutrition Problems: Swallowing Assessment: Pt denies swallowing difficulty Mouth: Missing teeth Abdominal Assessment: Last BM 01/10 Appetite: good Cognition: A/O x 4; per RN, developmental delay Geriatric feeding skills: Pt is able to feed himself; from home and reported that he grocery shops for himself and prepares his own meals, although reported usual intake of TV dinners Physical findings: obese Skin Integrity: wound to b/l breasts; venous ulcer to b/l pretibials Edema: non-pitting RUE, non-pitting LUE, +1 RLE, +1 LLE -ECHO, EF 45% (01/13/2024) Nutrition Data/Clinical Indicators of Nutrition Status: Height: 170.2 cm (5' 7 ) Weight: 132 kg (290 lb 3.2 oz) BMI (Calculated): 45.44 Wt change: Pt reported stable wt hx; reported that he weighs himself daily Wt Readings from Last 10 Encounters: 01/14/24 132 kg (290 lb 3.2 oz) 04/03/18 131.5 kg (290 lb) Office visit IBW: 67.3 kg (148 lb) UBW: 132.7-133.6 kg (292-294 lb); reported by pt Nutrition Assessment: Visiting pt for initial assessment d/t consult for CHF diet ed. Pt reported good appetite ms sql dba that continues while inpatient, eating 3 meals/d plus snacks. Usual intake reported as follows: Breakfast: cup of dry cheerios Lunch: TV dinner Dinner: cup of cottage cheese Snacks: fruit bowl Vitamins/minerals: Vitamin B12 Pt reported that he enjoys eating healthy stuff citing TV dinners as health food, reported that he obtains diet advice from doctors on the internet but noted that he is always receiving conflicting recommendations. Discussed HH diet therapy and practiced reading nutrition labels at assessment. Pt reported that he does not typically read labels d/t lack of prior knowledge -> also discussed balancing meals and refraining from adding salt to foods. Pt inquired about wt loss drugs (ozempic) -> RD explained ozempic and DM management, but deferred further questions (appropriateness of GLP-1 inhibitors for pt) to pt's PCP. Dietary Orders (From admission, onward) Start Ordered 01/13/24 1644 Regular Diet Heart Healthy/HTN, CABG,Stroke, (2gNA, low fat, low cholesterol); Diabetic Male (carb 60g/meal) Diet effective now Question Answer Comment Room Service? Yes Fat restriction: Heart Healthy/HTN, CABG,Stroke, (2gNA, low fat, low cholesterol) Carbohydrate restriction: Diabetic Male (carb 60g/meal) 01/13/24 1643 Percent Meals Eaten (%): 100 (01/14/24 0900 : Behtany Neville, PCT) Meal Intakes: 100% Nutrition Risk: Low Nutrition Diagnosis: Food and nutrition knowledge deficit Related (more content not included)... Normal [facility] CONSULT discharge planning: to return home 1007 Patient came to [facility] 01/12/[facility]24 (via [facility]) from their private residence in the community. Patient oxygen flowsheet indication Patient is on room air, with few specific times needing oxygen 2L nasal cannula. LDA indicating Patient has wound Bilateral Lower Extremities & Bilateral Chest Area. MAR not found to have IV antibiotics that would need continued past discharge. Physicians have not placed any order for OT or PT or Speech. 1155 communication received that Patient will need transportation at discharge due to family not willing to transport ([phone]) PC to [facility], to enquire if Patient has transportation benefit available to them; Lizzie answered, transferred parts data writer to transportation dept; line disconnected ([phone]) PC to [facility], to enquire if Patient has transportation benefit available to them; after navigating through automated system for 5 minutes, unable to speak with a person ([phone]) PC to [facility], to enquire if Patient has transportation benefit available to them; after navigating through automated system for 12 minutes, unable to speak with a person unable to arrange transportation through insurance at this time 1226 [id number] with Patient, to discuss discharge transportation planning Patient stating he is planning to be discharged tomorrow; stating he does not have anyone that can pick him up since they all work parts data writer provided update that parts data writer has been trying to contact his insurance about transportation but has not been able to get through to insurance, so Patient may need to consider having to pay [id number] for transportation home (as Patient does not meet criteria for stretcher transport) Normal [facility] POCT GLUCOSE METER UNSOLICIT ED RESULTSon 01-14-2024 Glucose [Mass/Vol] 214 mg/dL High 70-105 [facility] Comment on above: Order Comment: Waive d Testing in the ED is performed under the ED CLIA certificate #[id number]. Result Comment: [email or web address] Performed By: #### L [id number] #### [facility] ([facility]) [address] [place] [address] Glucose [Mass/Vol] 194 mg/dL High 70-105 [facility] Comment on above: Order Comment: Waive d Testing in the ED is performed under the ED CLIA certificate #[id number]. Result Comment: [email or web address] Performed By: #### L [id number] #### [facility] ([employer]) [address] [place] [address] Glucose [Mass/Vol] 178 mg/dL High 70-105 [facility] Comment on above: Order Comment: Waive d Testing in the ED is performed under the ED CLIA certificate #[id number]. Result Comment: [email or web address] Performed By: #### L [id number] ####[facility] ([facility])[address] [facility] [place] [address] Glucose [Mass/Vol] 155 mg/dL High 70-105 [facility] Comment on above: Order Comment: Waive d Testing in the ED is performed under the ED CLIA certificate #[id number]. Result Comment: [email or web address] Performed By: #### L [id number] #### [facility] ([facility]) [address] [place] [address] 30on 01-13-2024 30 Daily Case Managemen t Update Multidisciplinary rounds have been completed. Barriers to Discharge et per Progress Note/s: Transfer from [facility] for c/o Chest Pain = NSTEMI. Hep et NTG gtt. TTE ordered; pending. NPO for Cardiac Cath. Diet: Dietary Orders (From admission, onward) Start Ordered 01/12/242029 Diet NPO Diet effective now Comments: Sips with medications Question: Reason for NPO: Answer: Operation/Procedure 01/12/242031 Physician Expected Discharge Date: 01/14/2024 Discharge Delays: PT Six Click Score: 15 OT Six Click Score: PT Recommendations: OT Recommendations: New Consults: Ancillary Consults (From admission, onward) Start Ordered 01/12/24 190 Inpatient consult to Wound/Ostomy Nurse Once Comments: Consult Wound Nurse for at-risk for PU, stage 1, or stage 2. For all stage 3 ulcers, stage 4, unstageable, DTI, infected PU, and lower extremity ulcers use the Inpatient consult to Vascular Wound Care Provider: (Not yet assigned) Question Answer Comment Consult for: Wound Reason for Consult? new admission 01/12/24 1900 Normal [facility] 30 The patient is Moder ately Stable - Low risk of patient condition declining or worsening The patient's goals for the shift include comfort The clinical goals for the shift include safety Over the shift, the patient did not make progress toward the following goals. Barriers to progression include chest pain. Recommendations to address these barriers include making changes to the current treatment plan as needed. Problem: Cardiovascular - Adult Goal: Maintains optimal cardiac output and hemodynamic stability Outcome: Not Progressing Flowsheets (Taken 01/12/20242014) Maintains optimal cardiac output and hemodynamic stability: Monitor blood pressure and heart rate Monitor urine output and notify Licensed Independent Practitioner for values outside of normal range Assess for signs of decreased cardiac output Administer fluid and/or volume expanders as ordered Administer vasoactive medications as ordered Goal: Absence of cardiac dysrhythmias or at baseline Outcome: Not Progressing Flowsheets (Taken 01/12/20242014) Absence of cardiac dysrhythmias or at baseline: Monitor cardiac rate and rhythm Assess for signs of decreased cardiac output Administer antiarrhythmia medication and electrolyte replacement as ordered Normal [facility] APTTon 01-13-2024 ACTIVATED PARTIAL THROMBOPLASTIN TIME IN PPP BY COAGULATION ASSAY 28.0 Seconds Normal 25.0-35.0 [facility] Comment on above: Order Comment: Check aPTT every 6 hours while on heparin infusion, or per protocol. Result Comment: Clin ical significance of the APTT is questionable in the presence of heparin. Performed By: #### L [id number] ####[facility] ([facility])[address] [place] [address] ACTIVATED PARTIAL THROMBOPLASTIN TIME IN PPP BY COAGULATION ASSAY 68.0 Seconds High 25.0-35.0 [facility] Comment on above: Order Comment: Waive d Testing in the ED is performed under the ED CLIA certificate #[id number]. Result Comment: Clin ical significance of the APTT is questionable in the presence of heparin. Performed By: #### L [id number] #### [facility] ([facility]) [address] [place] [address] ACTIVATED PARTIAL THROMBOPLASTIN TIME IN PPP BY COAGULATION ASSAY 55.3 Seconds High 25.0-35.0 [facility] Comment on above: Order Comment: Check aPTT every 6 hours while on heparin infusion, or per protocol. Result Comment: Clin ical significance of the APTT is questionable in the presence of heparin. Performed By: #### L [id number] #### [facility] ([facility]) [address] [place] [address] CBC WITH AUTO DIFFERENTIALon 01-13-2024 Basophils (Bld) [#/Vol] 0.04 10*3/uL Normal 0.00-0.20 [facility] Comment on above: Performed By: #### L [id number] #### [facility] ([facility]) [address] [place] [address] Basophils/100 WBC (Bld) 0.4 % Normal 0.0-1.0 [facility] Comment on above: Performed By: #### L [id number] #### [facility] ([facility]) [address] [place] [address] Eosinophils (Bld) [#/Vol] 0.08 10*3/uL Normal 0.00-0.50 [facility] Comment on above: Performed By: #### L [id number] #### [facility] ([facility]) [address] [place] [address] Eosinophils/100 WBC (Bld) 0.8 % Normal 0.0-6.0 [facility] Comment on above: Performed By: #### L [id number] #### [facility] ([facility]) [address] [place] [address] Erythrocyte distribution width (RBC) [Ratio] 13.1 % Normal 11.5-15.0 [facility] Comment on above: Performed By: #### L [id number] #### [facility] ([facility]) [address] [place] [place] [address] ERYTHROCYTE MEAN CORPUSCULAR HEMOGLOBIN CONCENTRATION (G/DL) BY AUTOMATED 33.4 g/dL Normal 32.0-35.0 [facility] Comment on above: Performed By: #### L [id number] #### [facility] ([facility]) [address] [place] [address] Hematocrit (Bld) [Volume fraction] 38.9 % Low 39.0-55.0 [facility] Comment on above: Performed By: #### L [id number] #### [facility] ([facility]) [address] [place] [address] Hemoglobin (Bld) [Mass/Vol] 13.0 g/dL Normal 13.0-17.0 [facility] Comment on above: Performed By: #### L [id number] #### [facility] ([facility]) [address] [place] [address] Immature granulocytes (Bld) [#/Vol] 0.04 10*3/uL Normal 0.00-0.20 [facility] Comment on above: Performed By: #### L [id number] #### [facility] ([facility]) [address] [place] [address] Immature granulocytes/100 WBC (Bld) 0.4 % Normal 0.0-1.0 [facility] Comment on above: Performed By: #### L [id number] #### [facility] ([facility]) [address] [place] [address] Lymphocytes (Bld) [#/Vol] 1.85 10*3/uL Normal 1.20-4.00 [facility] Comment on above: Performed By: #### L [id number] #### [facility] ([facility]) [address] [place] [address] Lymphocytes/100 WBC (Bld) 18.4 % Low 20.0-45.0 [facility] Comment on above: Performed By: #### L [id number] #### [facility] ([facility]) [address] [place] [address] MCH (RBC) [Entitic mass] 31.3 pg Normal 27.0-33.0 [facility] Comment on above: Performed By: #### L [id number] #### [facility] ([facility]) [address] [place] [address] MCV (RBC) [Entitic vol] 93.7 fL Normal 82.0-98.0 [facility] Comment on above: Performed By: #### L [id number] #### [facility] ([facility]) [address] [place] [address] Monocytes (Bld) [#/Vol] 0.83 10*3/uL Normal 0.10-1.00 [facility] Comment on above: Performed By: #### L [id number] #### [facility] ([facility]) [address] [place] [address] Monocytes/100 WBC (Bld) 8.3 % Normal 5.0-12.0 [facility] Comment on above: Performed By: #### L [id number] #### [facility] ([facility]) [address] [place] [address] Neutrophils (Bld) [#/Vol] 7.19 10*3/uL Normal 1.60-7.60 [facility] Comment on above: Performed By: #### L [id number] #### [facility] ([facility]) [address] [place] [address] Neutrophils/100 WBC (Bld) 71.7 % Normal 40.0-72.0 [facility] Comment on above: Performed By: #### L [id number] #### [facility] ([facility]) [address] [place] [address] NRBC (PER 100 WBCS) BY AUTOMATED COUNT 0.0 % Normal 0 [facility] Comment on above: Performed By: #### L [id number] #### [facility] ([facility]) [address] [place] [address] PLATELETS (10*3/UL) IN BLOOD AUTOMATED COUNT 232 10*3/uL Normal 150-400 [facility] Comment on above: Performed By: #### L [id number] #### [facility] ([facility]) [address] [place] [address] RBC (Bld) [#/Vol] 4.15 10*6/uL Low 4.20-5.70 [facility] Comment on above: Performed By: #### L [id number] #### [facility] ([facility]) [address] [place] [address] WBC (Bld) [#/Vol] 10.03 10*3/uL Normal 4.00-10.60 [facility] Comment on above: Performed By: #### L [id number] #### [facility] ([facility]) [address] [place] [address] COMPREHENSIVE METABOLIC PANE Humberto 01-13-2024 Albumin [Mass/Vol] 3.8 g/dL Normal 3.5-5.7 [facility] Comment on above: Performed By: #### L [id number] #### [facility] ([facility]) [address] [place] [address] ALP [Catalytic activity/Vol] 59 U/L Normal 34-104 [facility] Comment on above: Performed By: #### L [id number] #### [facility] ([facility]) [address] [place] [address] ALT [Catalytic activity/Vol] 30 U/L Normal 7-52 [facility] Comment on above: Performed By: #### L [id number] #### [facility] ([facility]) [address] [place] [address] Anion gap [Moles/Vol] 12 mmol/L Normal 7-20 [facility] Comment on above: Performed By: #### L [id number] #### [facility] ([facility]) [address] [place] [address] AST [Catalytic activity/Vol] 143 U/L High 13-39 [facility] Comment on above: Performed By: #### L [id number] #### [facility] ([facility]) [address] [place] [address] Bilirubin [Mass/Vol] 1.0 mg/dL Normal 0.3-1.0 [facility] Comment on above: Performed By: #### L [id number] #### [facility] ([facility]) [address] [place] [address] Calcium [Mass/Vol] 8.7 mg/dL Normal 8.6-10.3 [facility] Comment on above: Performed By: #### L [id number] #### [facility] ([facility]) [address] [place] [address] Chloride [Moles/Vol] 103 mmol/L Normal 98-107 [facility] Comment on above: Performed By: #### L [id number] #### [facility] ([facility]) [address] [place] [address] CO2 [Moles/Vol] 23 mmol/L Normal 21-31 [facility] Comment on above: Performed By: #### L [id number] #### [facility] ([facility]) [address] [place] [address] Creatinine [Mass/Vol] 0.71 mg/dL Normal 0.70-1.30 [facility] Comment on above: Performed By: #### L [id number] #### [facility] ([facility]) [address] [place] [address] GLOMERULAR FILTRATION RATE ML/MIN/1.73 SQ M.PREDICTED 99.9 mL/min/1.73m*2 Normal >60.0 [facility] Comment on above: Result Comment: The [facility]???s estimated glomerular filtration rate (eGFR) will no longer include consideration of race in its calculation. The National Kidney Foundation???s eGFR Task Force developed new recommendations for the estimation of the glomerular filtration rate in the [place] They recommend immediate implementation of the new equation refit without the race variable in all laboratories because the calculation does not include race. In addition to not including race in the calculation and reporting, it included diversity in its development, and has acceptable performance characteristics and potential consequences that do not disproportionately affect any one group of individuals. Performed By: #### L [id number] #### [facility] ([facility]) [address] [place] [address] Glucose [Mass/Vol] 200 mg/dL High 70-100 [facility] Comment on above: Performed By: #### L [id number] #### [facility] ([facility]) [address] [place] [address] Potassium [Moles/Vol] 3.7 mmol/L Normal 3.5-5.1 [facility] Comment on above: Performed By: #### L [id number] #### [facility] ([facility]) [address] [place] [address] Protein [Mass/Vol] 6.3 g/dL Normal 6.0-8.3 [facility] Comment on above: Performed By: #### L [id number] #### [facility] ([facility]) [address] [place] [address] Sodium [Moles/Vol] 134 mmol/L Low 136-145 [facility] Comment on above: Performed By: #### L [id number] #### [facility] ([facility]) [address] [place] [address] Urea nitrogen [Mass/Vol] 12 mg/dL Normal 7-25 [facility] Comment on above: Performed By: #### L [id number] #### [facility] ([facility]) [address] [place] [address] UREA NITROGEN/CREATININE (MASS RATIO) IN SER/PLAS 16.9 Normal [facility] Comment on above: Performed By: #### L [id number] #### [facility] ([facility]) [address] [facility] [place] [address] CONSULTon 01-13-2024 CONSULT ------ -- Attestation signed by Marly Garcia MD at 01/13/2024 5:24 PM (Updated) I personally saw and examined the patient on the same date of service as resident/fellow Dr carrizales. I discussed the findings and therapeutic plan with the resident/fellow Dr Carrizales. I agree with the documentation, except for any edits/updates below. Teaching Physician's Revisions: None In summary the patient does not have prior cardiac history but she has history of diabetes mellitus, paroxysmal A-fib on Eliquis and obesity. Patient presented with chest pain associated with nausea and shortness of breath and elevated troponin up to 32. EKG showed Q waves with slight elevation of ST and inverted T waves in leads V1 to V4 consistent with recent anterior infarct. Echo showed reduced ejection fraction with hypokinetic septum anterior and apical angelo. Plan: Is to continue current medications including aspirin, atorvastatin, metoprolol and heparin. Cardiac catheterization today to evaluate coronary anatomy for angioplasty. Aggressive risk factors modification If blood pressure allows we will add ARB. Marly Garcia MD, [facility] -- Cardiology Consult Note Reason for Consult: chest pain HPI: Huang Robles is a 68 y.o. malewith Pmh of Afib on eliquis, chronic venous insufficiency, obesity, DM came in with chest pain started suddenly yesterday after stressful argument with sister. His troponin aftab from 16 to 32, EKG showed q waves in V1-V3, RBBB. Underwent cath with PCI to LAD this morning. Pt seen today after cath, doing well, free of chest pain, no complaints, access site looked well, pulses intact. Cardiology ROS: GENERAL: Denies fever, chills, night sweats, weight loss. CARDIOVASCULAR: Denies chest pain, exertional dyspnea, orthopnea/PND, lower extremity edema, palpitations, lightheadedness/dizziness, syncope. RESPIRATORY: Denies SOB, coughing, wheezing Past Medical History He has a past medical history of Anemia in other chronic diseases classified elsewhere (02/25/2015), Asthma (09/05/2023), BPH with urinary obstruction (01/12/2024), Choledocholithiasis (01/12/2024), Chronic GERD (01/12/2024), Chronic ischemic heart disease, unspecified (02/25/2015), Class 3 severe obesity due to excess calories with serious comorbidity and body mass index (BMI) of 45.0 to 49.9 in adult ([facility]) (10/03/2023), Constipation (01/12/2024), Depression (01/12/2024), Developmental disability (10/15/2023), Fibromyalgia (05/15/2015), Macular degeneration (10/03/2023), Onychomycosis (10/03/2023), MIKAYLA (obstructive sleep apnea) (10/03/2023), Osteoarthritis (01/12/2024), Paroxysmal atrial fibrillation ([facility]) (06/10/2015), Primary hypertension (02/25/2015), Type 2 diabetes mellitus without complications ([facility]) (02/25/2015), and Venous insufficiency of both lower extremities (10/03/2023). Surgical History He has a past surgical history that includes Hip surgery (Left). Social History He reports that he has never smoked. He has never used smokeless tobacco. No history on file for alcohol use and drug use. Family History Family History Problem Relation Name Age of Onset Prostate cancer Father Allergies Patient has no known allergies. Medications Medications Prior to Admission Medication Sig Dispense Refill Last Dose Eliquis 5 mg tablet Take 5 mg by mouth in the morning and at bedtime. metoprolol tartrate (Lopressor) 100 mg tablet Take 100 mg by mouth in the morning and at bedtime. tolterodine LA (Detrol LA) 4 mg 24 hr capsule Take 4 mg by mouth in the morning. torsemide (Demadex) 20 mg tablet Take 10 mg by mouth in the morning. metFORMIN XR (Glucophage-XR) 500 mg 24 hr tablet Take 500 mg by mouth 2 times daily. Last Recorded Vitals Patient Vitals for the past 24 hrs: BP Temp Temp src Pulse Resp SpO2 Height Weight 01/13/24 1130 109/57 -- -- 59 21 95 % -- -- 01/13/24 1115 120/68 -- -- 62 17 99 % -- -- 01/13/24 1100 88/72 35.7 ???C (96.3 ???F) Temporal 68 19 94 % -- -- 01/13/24 1025 117/71 35.7 ???C (96.2 ???F) Temporal 61 18 98 % -- -- 01/13/24 0831 -- -- -- -- -- 98 % -- -- 01/13/24 0828 129/89 -- -- 60 18 98 % -- -- 01/13/24 0803 -- -- -- -- -- 98 % -- -- 01/13/24 0618 -- -- -- -- -- -- -- 134 kg (295 lb 13.7 oz) 01/13/24 0400 107/68 36.5 ???C (97.7 ???F) Temporal 52 21 98 % -- -- 01/13/24 0300 100/74 -- -- 58 20 90 % -- -- 01/13/24 0245 93/72 -- -- 59 14 96 % -- -- 01/13/24 0200 98/63 -- -- 61 20 98 % -- -- 01/13/24 0140 98/65 -- -- 60 18 98 % -- -- 01/13/24 0135 105/68 -- -- 55 19 96 % -- -- 01/13/24 0120 100/67 -- -- 64 14 98 % -- -- 01/13/24 0100 107/70 -- -- 62 20 96 % -- -- 01/13/24 0020 115/90 -- -- 65 -- 98 % -- -- 01/13/24 0000 138/83 -- -- 70 24 98 % -- -- 01/12/24 2338 130/81 -- -- 72 -- -- -- -- 01/12/24 2300 123/76 -- -- (more content not included)... 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 The reason for the consult was documented as new admission . After a skin assessment, the patient was found to have closed venous wounds and partial thickness moisture damage in his left axilla area. Orders have been placed for treatment. CWON will sign off at this time. *Staff nurses are responsible for performing treatments and interventions as ordered. Recommended care: Wound Location: Bilateral Lower Extremities & Bilateral Chest Area Wash wound with normal saline or wound cleanser. Pat wound and surrounding area dry. May leave open to air. Cleanse wound and assess daily for changes in appearance and report unexpected changes to MD immediately. Wound Care Prevention: Dressing applied for pressure redistribution, Pillows applied for pressure redistribution, and Patient/Staff were educated on the importance of frequent turns in bed to avoid prolonged pressure on high-risk area. Focused skin assessment performed Situation/ background: History of wound: Huang Robles is an 68 y.o. male who came from [facility] on 01/12/2024 as a transfer with chest pain. Barriers to care: None. Problems identified: None Discharge Planning: Patient to discharge home , Patient requires assistance to care for their wound after discharge., and Patient will need to be given the supplies required to care for their wound after discharge Teaching performed: Patient was educated on the process of how to care for their wound after discharge. Tolerance of dressings: Patient tolerated well without being medicated for pain. Number of staff and time required for dressin, 10 minutes Photos: 01/13/2024 Right Lower Extremity 01/13/2024 Left Lower Extremity 01/13/2024 Left Axilla & Under Breast area Pertinent Labs: Albumin Date Value Ref Range Status 01/13/2024 3.8 3.5 - 5.7 g/dL Final Wound Assessment: Wound 01/12/24 Breast Lower;Right (Active) Site Assessment Red 01/13/24 0745 Drainage Amount None 01/12/24 1800 Dressing Open to air 01/13/24 0745 Wound 01/12/24 Breast Left;Lower (Active) Wound Image 01/13/24 1418 Site Assessment Blanchable erythema;Clean;Fragile;Int act;Red 01/13/24 1440 Mary Lou-Wound Assessment Blanchable erythema 01/13/24 1440 Closure None 01/13/24 1440 Drainage Amount None 01/13/24 1440 Treatments Cleansed 01/13/24 1440 Dressing Open to air 01/13/24 1440 Dressing Changed New 01/13/24 1440 State of Healing Closed wound edges 01/13/24 1440 Wound Bed Granulation (%) 0 % 01/13/24 1440 Wound Bed Epithelium (%) 100 % 01/13/24 1440 Wound Bed Non-Granulation (%) 0 % 01/13/24 1440 Wound Bed Slough (%) 0 % 01/13/24 1440 Wound Bed Eschar (%) 0 % 01/13/24 1440 Margins Attached edges;Undefined edges 01/13/24 1440 Non-staged Wound Description Partial thickness 01/13/24 1440 Wound 01/12/24 Venous Ulcer Pretibial Right;Lower (Active) Wound Image 01/13/24 1416 Site Assessment Clean;Dry;Yellow-brown (Hemosiderin staining) 01/13/24 1439 Mary Lou-Wound Assessment Blanchable erythema 01/13/24 1439 Closure None 01/13/24 1439 Drainage Amount None 01/13/24 1439 Treatments Cleansed 01/13/24 1439 Dressing Open to air 01/13/24 1439 Dressing Changed New 01/13/24 1439 State of Healing Closed wound edges;Epithelialized 01/13/241438 Wound Bed Granulation (%) 0 % 01/13/24 143 Wound Bed Epithelium (%) 100 % 01/13/241438 Wound Bed Non-Granulation (%) 0 % 01/13/241438 Wound Bed Slough (%) 0 % 01/13/241438 Wound Bed Eschar (%) 0 % 01/13/241438 Margins Attached edges;Undefined edges 01/13/241438 Non-staged Wound Description Not applicable 01/13/249 Wound 01/12/24 Venous Ulcer Pretibial Distal;Bilateral (Active) Site Assessment Brown 01/13/24 0745 Dressing Open to air 01/13/24 0745 Wound 01/12/24 Venous Ulcer Pretibial Left;Lower (Active) Wound Image 01/13/24 1417 Site Assessment Clean;Dry;Yellow-brown (Hemosiderin staining) 01/13/248 Mary Lou-Wound Assessment Blanchable erythema 01/13/248 Closure None 01/13/24 1438 Drainage Amount None 01/13/24 1438 Treatments Cleansed 01/13/248 Dressing Open to air 01/13/24 1438 Dressing Changed New 01/13/241437 State of Healing Closed wound edges 01/13/241437 Wound Bed Granulation (%) 0 % 01/13/241437 Wound Bed Epithelium (%) 100 % 01/13/241437 Wound Bed Non-Granulation (%) 0 % 01/13/241437 Wound Bed Slough (%) 0 % 01/13/241437 Wound Bed Eschar (%) 0 % 01/13/241437 Margins Attached edges;Undefined edges 01/13/241437 Non-staged Wound Description Not applicable 01/13/241437 Barbra Angelo RN, CWON 01/13/2024 2:41 PM [facility] 01-13-2024 ------ -- Attestation signed by Avi Maurice MD at 01/13/2024 8:25 AM Agree with H&P and Dr. Kong's note. Musa's test normal bilaterally. I discussed with Mr. Robles the expected benefits and risks of cardiac catheterization, including potential subsequent treatments such as PCI. He understands and consents to proceed. -- H&P reviewed. The patient was examined and there are no changes to the H&P. Discussed risks vs. Benefits of the coronary angiogram and possible PCI, patient understands and willing to proceed. Gloria Kong MD PGY-7 Interventional Tie Binder Normal [facility] LIPID PANELon 01-13-2024 CHOL/HDL 3.9 mg/dL Normal [facility] Comment on above: Performed By: #### L [id number] #### [facility] ([employer]) [address] [place] [address] Cholesterol [Mass/Vol] 108 mg/dL Low 120-200 [facility] Comment on above: Performed By: #### L [id number] #### [facility] ([employer]) [address] [place] [address] Magnesium [Mass/Vol] 93 mg/dL Normal 40-149 [facility] Comment on above: Result Comment: TRIG LYCERIDE REFERENCE RANGE: 20 YEARS AND OLDER CARDIOVASCULAR RISK LESS THAN 150 mg/dL LOW RISK 150 TO 199 mg/dL BORDERLINE RISK 200 mg/dL AND GREATER HIGH RISK Performed By: #### L [id number] #### [facility] ([employer]) [address] [place] [address] Magnesium [Mass/Vol] 61 mg/dL Normal 0-160 [facility] Comment on above: Performed By: #### L [id number] #### [facility] ([facility]) [address] [place] [address] Magnesium [Mass/Vol] 28 mg/dL Normal 23-92 [facility] Comment on above: Performed By: #### L [id number] #### [facility] ([facility]) [address] [place] [address] NON HDL CHOL. (LDL+VLDL) 80 Normal [facility] Comment on above: Performed By: #### L [id number] #### [facility] ([facility]) [address] [place] [address] TOTAL VLDL-C 19 mg/dL Normal 0-40 [facility] Comment on above: Performed By: #### L [id number] #### [facility] ([facility]) [address] [place] [address] MAGNESIUMon 01-13-2024 Magnesium [Mass/Vol] 2.0 mg/dL Normal 1.9-2.7 [facility] Comment on above: Performed By: #### L [id number] #### [facility] ([facility]) [address] [place] [address] POCT GLUCOSE METER UNSOLICIT ED RESULTSon 01-13-2024 Glucose [Mass/Vol] 203 mg/dL High 70-105 [facility] Comment on above: Order Comment: Waive d Testing in the ED is performed under the ED CLIA certificate #[id number]. Result Comment: [email or web address] Performed By: #### L [id number] #### [facility] ([facility]) [address] [place] [address] Glucose [Mass/Vol] 193 mg/dL High 70-105 [facility] Comment on above: Order Comment: Waive d Testing in the ED is performed under the ED CLIA certificate #[id number]. Result Comment: [email or web address] Performed By: #### L [id number] ####[facility] ([employer])[address] [place] [address] Glucose [Mass/Vol] 257 mg/dL High 70-105 [facility] Comment on above: Order Comment: Waive d Testing in the ED is performed under the ED CLIA certificate #[id number]. Result Comment: [email or web address] Performed By: #### L [id number] #### [facility] ([employer]) [address] [place] [address] PROTIME-INRon 01-13-2024 INR IN PPP BY COAGULATION ASSAY 1.34 High 0.90-1.10 [facility] Comment on above: Result Comment: ACCC P RECOMMENDED INR FOR WARFARIN THERAPY CONDITION INR PROPHYLAXIS OF VENOUS THROMBOSIS 2-3 (HIGH-RISK SURGERY) TREATMENT OF VENOUS THROMBOSIS 2-3 TREATMENT OF PULMONARY EMBOLISM 2-3 PREVENTION OF SYSTEMIC EMBOLISM: 2-3 ACUTE MYOCARDIAL INFARCTION TISSUE HEART VALVES VALVULAR HEART DISEASE ATRIAL FIBRILLATION RECURRENT SYSTEMIC EMBOLISM MECHANICAL HEART VALVE 2.5-3.5 FROM: ORAL ANTICOAGULANTS. MECHANISM OF ACTION, CLINICAL EFFECTIVENESS, AND OPTIMAL THERAPEUTIC RANGE. CHEST 1995;108:231S-246S. Performed By: #### L [id number] ####[facility] ([employer])[address] [place] [address] PROTHROMBIN TIME (PT) IN PPP BY COAGULATION ASSAY 16.5 Seconds High 12.3-14.8 [facility] Comment on above: Performed By: #### L [id number] ####[facility] ([employer])[address] [place] [address] TROPONIN Ion 07-22-2024 Troponin I.cardiac [Mass/Vol] 22.53 ng/mL Critically high 0.00-0.04 [facility] Comment on above: Result Comment: Prev ious result verified on 01/13/2024 0443 on specimen/case 24H- called with component Troponin I for procedure Troponin I with value 32.72 ng/mL. Performed By: #### L [id number] ####[facility] ([facility])[address] [place] [address] Troponin I.cardiac [Mass/Vol] 32.72 ng/mL Critically high 0.00-0.04 [facility] Comment on above: Result Comment: M-CT EVIOUS CRITICAL RESULT Previous result verified on 01/12/20242321 on specimen/case - called with component Troponin I for procedure Troponin I with value 16.06 ng/mL. Performed By: #### L [id number] #### [facility] ([facility]) [address] [place] [address] APTTon 01-12-2024 ACTIVATED PARTIAL THROMBOPLASTIN TIME IN PPP BY COAGULATION ASSAY 28.2 Seconds Normal 25.0-35.0 [facility] Comment on above: Result Comment: Clin ical significance of the APTT is questionable in the presence of heparin. Performed By: #### L [id number] ####[facility] ([facility])[address] [place] [address] PLATELET COUNTon 01-12-2024 PLATELETS (10*3/UL) IN BLOOD AUTOMATED COUNT 249 10*3/uL Normal 150-400 [facility] Comment on above: Performed By: #### L [id number] ####[facility] ([facility])[address] [place] [address] TROPONIN Ion 01-12-2024 Troponin I.cardiac [Mass/Vol] 16.06 ng/mL Critically high 0.00-0.04 [facility] Comment on above: Performed By: #### L [id number] #### [facility] ([facility]) [address] [place] [address] Office Visit (Cardiology)on 12-27-2022 Follow-up visit Diagnoses/Problems Assessed Benign essential HTN (401.1) (I10) Diabetes mellitus (250.00) (E11.9) Permanent atrial fibrillation (427.31) (I48.21) Morbid obesity with BMI of 45.0-49.9, adult (278.01,V85.42) (E66.01,Z68.42) Lower extremity edema (782.3) (R60.0) Never a smoker Orders Morbid obesity with BMI of 45.0-49.9, adult Healthy Weight Tips; Status:Complete - Retrospective Authorization; Done: [id number] Some eating tips that can help you lose weight.; Status:Complete - Retrospective Authorization; Done: [id number] SocHx: Never a smoker Tobacco Use Screening; Status:Complete; Done: [id number] Patient Instructions Please bring all medicines, vitamins, and herbal supplements with you when you come to the office. Prescriptions will not be filled unless you are compliant with your follow up appointments or have a follow up appointment scheduled as per instruction of your physician. Refills should be requested at the time of your visit. Follow up in 1 year. patient to drink 16 oz less fluid per day for swelling. Chief Complaint HUANG ROBLES is being seen for an annual follow-up of. History of Present Illness Returns in follow-up of problems as noted. He is doing well. Despite his persistent atrial fibrillation he denies any activity limitations or aerobic restrictions. He denies any angina dyspnea or arrhythmia symptomatology. We discussed briefly his increased body mass index and the impact is having on diabetes and hypertension. We advocated a diet. There was a question about leg edema. He is on 2 diuretics. I offered to intensify his diuretic therapy but he declines. Ultimately we agreed he would restrict fluid intake as well as caloric intake. He was also encouraged to keep his legs up. Surgical History Problems History of Cataract surgery History of Cholecystectomy History of Complete colonoscopy History of Hip replacement History of Knee replacement History of Rotator cuff repair History of Tonsillectomy Current Meds Medication NameInstruction Advair HFA 115-21 MCG/ACT Inhalation AerosolINHALE 2 PUFFS, BY MOUTH, TWICE DAILY. Eliquis 5 MG Oral TabletTake 1 tablet twice a day Magnesium 500 MG TABSTake 1 tablet daily metFORMIN HCl - 500 MG Oral TabletTAKE 1 TABLET EVERY 12 HOURS WITH FOOD. Metoprolol Tartrate 100 MG Oral TabletTake 1 tablet twice daily PreserVision AREDS 2 CAPSTake 1 capsule twice daily Spironolactone 25 MG Oral TabletTAKE 1 TABLET BY MOUTH EVERY DAY Tolterodine Tartrate ER 4 MG Oral Capsule Extended Release 24 HourTAKE 1 CAPSULE Daily Torsemide 20 MG Oral Tablettake 1/2 tablet by mouth daily Ventolin HFA 108 (90 Base) MCG/ACT Inhalation Aerosol Solutionas directed Vitamin C 1000 MG Oral TabletTAKE 1 TABLET DAILY. Allergies Medication No Known Drug Allergies Recorded By: Aruna Hardy; 11/10/2021 9:39:51 AM Social History Problems Caffeine use (V49.89) (Z78.9) Never a smoker No alcohol use No illicit drug use Review of Systems Constitutional: not feeling tired. Eyes: no eyesight problems. ENT: no hearing loss and no nosebleeds. Cardiovascular: no intermittent leg claudication and as noted in HPI. Respiratory: no chronic cough and no shortness of breath. Gastrointestinal: no change in bowel habits and no blood in stools. Genitourinary: no urinary frequency and no hematuria. Skin: no skin rashes. Neurological: no seizures and no frequent falls. Psychiatric: no depression and not suicidal. All other systems have been reviewed and are negative for complaint. Vitals Vital Signs Recorded: [id number] 08:19AM Heart Rate66, R Radial Jcpjjxjr843, LUE, Sitting Dlnduifwe70, LUE, Sitting Height5 ft 6 in Seuqnu271 lb BMI Sdaxpkfffx47.58 kg/m2 BSA Calculated2.38 Tobacco Useb) No PHQ-2 #1. Over the last 2 weeks have you felt down, depressed or hopeless? (If yes, answer PHQ-9 below)No PHQ-2 #2. Over the last 2 weeks have you felt little interest or pleasure in doing things? (If yes, answer PHQ-9 below)No Falls Screening (Age 18+)a) No falls within the last year Physical Exam Constitutional: alert and in no acute distress. Eyes: no erythema, swelling or discharge from the eye . Neck: neck is supple, symmetric, trachea midline, no masses and no thyromegaly . Pulmonary: no increased work of breathing or signs of respiratory distress and lungs clear to auscultation. Cardiovascular: carotid pulses 2+ bilaterally with no bruit , JVP was normal, no thrills , regular rhythm, normal S1 and S2, no murmurs , pedal pulses 2+ bilaterally and no edema . Abdomen: abdomen non-tender, no masses and no hepatomegaly . Skin: skin warm and dry, normal skin turgor . Psychiatric judgment and insight is normal and oriented to person, place and time . Signatures Electronically signed by : Vel Muñoz MD; Dec 27 2022 9:49AM EST (Author) Normal [employer] Tobacco Screening.on 023 Adult depression screening assessment No -[facility]-Sandu adrienne 250 DO Work Phone: Fall risk assessment a) No falls within the last year [facility]-Wochitu adrienne 250 DO Work Phone: Tobacco use status [facility] b) No -[facility] adrienne 250 DO Work Phone: Office Visit (Cardiology)on 01-03-2022 Follow-up visit Diagnoses/Problems Assessed Permanent atrial fibrillation (427.31) (I48.21) Diabetes mellitus (250.00) (E11.9) Benign essential HTN (401.1) (I10) Morbid obesity with BMI of 45.0-49.9, adult (278.01,V85.42) (E66.01,Z68.42) Never a smoker Orders Morbid obesity with BMI of 45.0-49.9, adult Healthy Weight Tips; Status:Complete - Retrospective Authorization; Done: [id number] SocHx: Never a smoker Tobacco Use Screening; Status:Complete; Done: [id number] Tobacco Use Screening; Status:Complete; Done: [id number] Patient Instructions By signing my name below, I, Haily Darling LPN ,Charissaibe, attest that this documentation has been prepared under the direction and in the presence of Dr. Vel Muñoz MD. All medical record entries made by the Scribe were at my direction and personally dictated by me. I have reviewed the chart and agree that the record accurately reflects my personal performance of the history, physical exam, discussion and plan. Please bring all medicines, vitamins, and herbal supplements with you when you come to the office. Prescriptions will not be filled unless you are compliant with your follow up appointments or have a follow up appointment scheduled as per instruction of your physician. Refills should be requested at the time of your visit. Follow up in 1 year. Chief Complaint HUANG ROBLES is being seen for an annual follow-up of. History of Present Illness Returns in follow-up of problems as noted. He is tolerating his permanent atrial fibrillation well. I cannot elicit any orthopnea PND or dyspnea exertion. He does have occasional flareups of asthma but they appear to be distinctly different from anything related to the atrial fibrillation. The patient's blood pressure is adequately managed and diabetes is been addressed appropriately. He continues to be obese and the merits of diet exercise and weight loss were advocated. Surgical History Problems History of Cataract surgery History of Cholecystectomy History of Complete colonoscopy History of Hip replacement History of Knee replacement History of Rotator cuff repair History of Tonsillectomy Current Meds Medication NameInstruction Advair HFA 115-21 MCG/ACT Inhalation AerosolINHALE 2 PUFFS, BY MOUTH, TWICE DAILY. Eliquis 5 MG Oral TabletTake 1 tablet twice daily Magnesium 500 MG TABSTake 1 tablet daily metFORMIN HCl - 500 MG Oral TabletTAKE 1 TABLET EVERY 12 HOURS WITH FOOD. Metoprolol Tartrate 100 MG Oral TabletTake 1 tablet twice daily PreserVision AREDS 2 CAPSTake 1 capsule twice daily Spironolactone 25 MG Oral TabletTAKE 1 TABLET DAILY. Tolterodine Tartrate ER 4 MG Oral Capsule Extended Release 24 HourTAKE 1 CAPSULE Daily Torsemide 20 MG Oral Tablettake 1/2 tablet by mouth daily Ventolin HFA 108 (90 Base) MCG/ACT Inhalation Aerosol Solutionas directed Vitamin C 1000 MG Oral TabletTAKE 1 TABLET DAILY. Allergies Medication No Known Drug Allergies Recorded By: Aruna Hardy; 11/10/2021 9:39:51 AM Social History Problems Caffeine use (V49.89) (Z78.9) Never a smoker No alcohol use No illicit drug use Review of Systems Constitutional: not feeling tired. Eyes: no eyesight problems. ENT: no hearing loss and no nosebleeds. Cardiovascular: no intermittent leg claudication and as noted in HPI. Respiratory: no chronic cough and no shortness of breath. Gastrointestinal: no change in bowel habits and no blood in stools. Genitourinary: no urinary frequency and no hematuria. Skin: no skin rashes. Neurological: no seizures and no frequent falls. Psychiatric: no depression and not suicidal. All other systems have been reviewed and are negative for complaint. Vitals Vital Signs Recorded: [id number] 01:46PM Heart Rate64, R Radial Dobwfauf056, RUE, Sitting Vfalizhbq43, RUE, Sitting Height5 ft 6 in Vuijdj997 lb BMI Pcvmmncpec72.61 kg/m2 BSA Calculated2.36 Tobacco Useb) No PHQ-2 #1. Over the last 2 weeks have you felt down, depressed or hopeless? (If yes, answer PHQ-9 below)No PHQ-2 #2. Over the last 2 weeks have you felt little interest or pleasure in doing things? (If yes, answer PHQ-9 below)No Falls Screening (Age 18+)a) No falls within the last year Physical Exam Constitutional: alert and in no acute distress. Eyes: no erythema, swelling or discharge from the eye . Neck: neck is supple, symmetric, trachea midline, no masses and no thyromegaly . Pulmonary: no increased work of breathing or signs of respiratory distress and lungs clear to auscultation. Cardiovascular: carotid pulses 2+ bilaterally with no bruit , JVP was normal, no thrills , regular rhythm, normal S1 and S2, no murmurs , pedal pulses 2+ bilaterally and no edema . Abdomen: abdomen non-tender, no masses and no hepatomegaly . Skin: skin warm and dry, normal skin turgor . Psychiatric judgment and insight is normal and oriented to person, place and time . Signatures Electronically signed by : Vel Muñoz MD; Priscila (more content not included)... Normal [employer] Tobacco Screening.on 022 Adult depression screening assessment No [facility] [employer]ogix DO Work Phone: Fall risk assessment a) No falls within the last year [facility] Buxfer 250 DO Work Phone: Tobacco use status [facility] b) No [facility] [employer] DO Work Phone: OBSOLETEon 11-26-2018 OBSOLETE Refill (INTMIN) -- HUANG ROBLES ([id number]) 1955 M Date Time Provider Department 11/26/18 FRANKLIN URBAN During your visit today, we recorded the following information about you: Chanelle Howard Pss 11/26/2018 3:22 PM Signed Pharmacy electronically requesting refills as follows: Pending Prescriptions Disp Refills METOPROLOL TARTRATE 50 MG TABLET 180 tablet 3 Sig: Take 1 tablet by mouth twice daily. SHAUNA: No Please review and advise. Chanelle Howard Pss Amy Rangel General Handling Supervisor 11/26/2018 4:47 PM Signed Patient phones requesting refills as follows: Pending Prescriptions Disp Refills METOPROLOL TARTRATE 50 MG TABLET 180 tablet 3 Sig: Take 1 tablet by mouth twice daily. SHAUNA: No Please review and advise. Amy Rangel General Handling Supervisor Currently no apptm scheduled 10/02/2017 last apptm 10/02/2017 cmp Allergies As of Date: 11/26/2018 (No Known Allergies) Date Reviewed: 04/03/2018 Reviewed by: Avi Hare (Rn) MICKEY Oliveira - Fully Assessed Reason for Visit: Refill Request [94] Cmt: [facility] Reason For Visit History Recorded Order(s):metoprolol tartrate, short acting, (LOPRESSOR) 50 mg tabletTake 1 tablet by mouth twice daily.Disp: 180 tabletRfl: 3 Prescriptions as of 11/26/2018 Sig: METOPROLOL TARTRATE 50 MG TAB* Take 1 tablet by mouth twice * BUMETANIDE 1 MG TABLET Take 1 tablet by mouth twice * RYANNE CARRANZA [facility] SPACER as directed. TOLTERODINE ER 4 MG CAPSULE,E* Take by mouth once daily. BUDESONIDE-FORMOTEROL HFA 160* Inhale 2 Puffs as instructed * VENTOLIN INHALATION Inhale as instructed. LISINOPRIL 2.5 MG TABLET Take by mouth once daily. ESOMEPRAZOLE MAGNESIUM 20 MG * Take by mouth. ASCORBIC ACID (VITAMIN C) 500* Take by mouth once daily. MAGNESIUM OXIDE 500 MG TABLET Take by mouth. METFORMIN 500 MG TABLET Take by mouth twice daily wi* Problem List As Of Date 11/26/2018 Noted Resolved Paroxysmal atrial fibrillation (HCC) [I48.0] INVALID FOR* Type 2 diabetes mellitus without complication (*INVALID FOR* HTN (hypertension) [I10] INVALID FOR* Obesity, Class III, BMI >= 40 (morbid obesity) *INVALID FOR* Prescriptions ordered this encounter Disp Refills Start End METOPROLOL TARTRATE 50 MG TABLET 180 * 3 11/27/2018 11/27/2019 Route: ORAL Sig: Take 1 tablet by mouth twice daily. Medications Discontinued During This Encounter metoprolol tartrate, short acting, (* 180 * 3 10/15/2017 11/27/2018 Route: ORAL Sig: Take 1 tablet by mouth twice daily. Disc: Reason for discontinue is not on file. Encounter Status:Closed by FRANKLIN URBAN MD on 11/27/18 [facility] CNOVon 04-03-2018 CNOV Office Visit (CARDFT ) -- HUANG ROBLES ([id number]) 1955 M Date Time Provider Department 04/03/18 10:30 AM FRANKLIN URBAN VAGESH CARDFT During your visit today, we recorded the following information about you: Pulse Respiration Blood pressure Weight 60/minute 18/minute 123/73 131.5 kg Height 1.702 m Franklin Urban MD 04/03/2018 11:01 AM [facility] [place] [facility] Department of Cardiovascular Medicine OUTPATIENT VISIT DATE 04/03/18 OUTPATIENT VISIT TYPE ESTABLISHED PRIMARY CARE PHYSICIAN: Leona Gordon DO [address] [place] [address] CHIEF COMPLAINT: Atrial fibrillation HISTORY OF PRESENT ILLNESS: Huang Robles is a very pleasant 62 year old male who presents today to follow up. History includes atrial fibrillation, HTN, obesity. For the most part he has improved his diet but he believes is the weather becomes colder he may be less compliant with a lean diet. He is trying to stay active during the daytime with housework and short walks. His primary care physician is leaving the area. Denies chest pain, syncope, palpitations PAST MEDICAL HISTORY Diagnosis Date - Atrial flutter (HCC) - BPH (benign prostatic hyperplasia) - DJD (degenerative joint disease) - DM (diabetes mellitus) (HCC) - HTN (hypertension) - Obesity PAST SURGICAL HISTORY Procedure Laterality Date - PAST SURGICAL HISTORY OF Bilateral knees and left shoulder Social History Substance Use Topics - Smoking status: Never Smoker - Smokeless tobacco: Never Used - Alcohol use No FAMILY HISTORY Problem Relation Age of Onset - Heart Mother CHF - Heart Brother CHF ALLERGIES: ALLERGIES No Known Allergies MEDICATIONS: bumetanide (BUMEX) 1 mg tablet Take 1 tablet by mouth twice daily. metoprolol tartrate, short acting, (LOPRESSOR) 50 mg tablet Take 1 tablet by mouth twice daily. apixaban (ELIQUIS) 5 mg tab(s) Take 1 tablet by mouth twice daily. RYANNE [facility]ARRANZA [facility] spcr as directed. tolterodine ER (DETROL LA) 4 mg 24 hr capsule Take by mouth once daily. budesonide-formoterol (SYMBICORT) 160-4.5 mcg/actuation inhaler Inhale 2 Puffs as instructed twice daily. ALBUTEROL SULFATE (VENTOLIN INHALATION) Inhale as instructed. lisinopril 2.5 mg tablet Take by mouth once daily. esomeprazole (NEXIUM) 20 mg capsule Take by mouth. ascorbic acid (VITAMIN C) 500 mg tablet Take by mouth once daily. Magnesium Oxide 500 mg tab Take by mouth. metFORMIN (GLUCOPHAGE) 500 mg tablet Take by mouth twice daily with meals. REVIEW OF SYSTEMS: GENERAL: Negative for: Fever. CARDIAC: See HPI above. HEENT: Negative for: Ringing in Ears, nosebleeds, bleeding gums. Adequate dentition NECK: Negative for: Pain, stiffness RESPIRATORY: Negative for: Blood in sputum, wheezing. GASTROINTESTINAL: Negative for: Trouble swallowing, blood in stool MUSCULOSKELETAL: Negative for: Joint stiffness and pain NEUROLOGIC: Negative for: Numbness, tremors PSYCHIATRIC: Negative for: Anxiety, depression SKIN: Negative for: Rashes, itching HEMATOLOGICAL/LYMPHATIC: Negative for: Easy bruising, easy bleeding, painful lymph nodes I personally interviewed, confirmed and edited the above information if obtained by others. PHYSICAL EXAMINATION: BP 123/73 Pulse 60 Resp 18 Ht 170.2 cm (5' 7 ) Wt 131.5 kg (290 lb) SpO2 96% BMI 45.42 kg/m? General: Well appearing, in no acute distress. Obese Neuro: Oriented to person, place and time, alert, cooperative. Eyes: Extra ocular movements intact, pupils react to light Neck: Unable to assess JVP given body habitus Heart: Regular rhythm, S1, S2 normal, no S3, no S4. No murmur. Lungs: Clear to auscultation bilaterally. Good respiratory effort. Abdomen: Soft, nontender, bowel sounds normal Skin: No clubbing, no cyanosis. Extremities: Mild lower extremity edema with erythema, chronic skin changes ? CARDIOVASCULAR MEDICINE TESTING: EKG 09/11/17 sinus bradycardia ventricular rate 57 BPM with incomplete right bundle branch block Pulmonary function testing 09/18/17 moderate COPD with significant response to bronchodilators and mild air trapping with normal DLCO Echocardiogram 08/30/17 EF 66%, stage II diastolic dysfunction, severe concentric LVH, RVSP 35 mmHg, ectatic aortic root 3.8 cm Vira scan 09/18/17 EF 65%, no ischemia, transient ischemic dilation 1.48 I have personally reviewed the above Cardiovascular Medicine Testing. ? IMPRESSION/PLAN: Huang Robles is a 62 year old male with history of atrial fibrillation, HTN, heart failure with preserved ejection fraction, obesity here for follow up ? Atrial fibrillation: Asymptomatic. CHADS2-VASc score: 2. High risk for thromboembolism. Continue metoprolol for rate control and apixaban for thromboembolic risk reduction. ? COPD: Moderate, extensive secondhand tobacco exposure. Heart failure with preserved ejection fraction (HFpEF): NYHA functional class III heart failure with preserved LVEF. Continue beta tolu and FER inhibitor in addition to Bumex for volume management. Euvolemic Obesity: I have extensively counseled regarding weight loss including low fat, low sodium diet, increasing omega 3 rich fish intake with reduction in red meat intake with portion control including multiple small meals over the course of the day instead of a few heavy meals, less post dinner snacking, reduction in fried and fast food, and increase in high fiber foods including fruit and vegetables. ? Hypertension: Controlled ? Disposition: Follow up in 6 months locally. Pending studies: None ? ? ? CONTACT INFORMATION: Thank you for allowing us to assist in the care your patient. As always please do not hesitate to contact us with further questions or concerns. ? Ollie Rob Department of Cardiovascular Medicine [facility] [place] [facility] [address] [place], [place] [address] Office: [phone] Referring Provider: LEONA GORDON [[id number]] Allergies As of Date: 04/03/2018 (No Known Allergies) Date Reviewed: 04/03/2018 Reviewed by: Avi Hare (Rn) MICKEY Oliveira - Fully Assessed Primary Visit Diagnosis:(HFpEF) heart failure with preserved ejection fraction (HCC) [I50.30] Other Visit Diagnosis:Paroxysmal atrial fibrillation (HCC) [I48.0] Order(s):bumetanide (BUMEX) 1 mg tabletTake 1 tablet by mouth twice daily.Disp: 60 tabletRfl: 11 Prescriptions as of 04/03/2018 Sig: BUMETANIDE 1 MG TABLET Take 1 tablet by mouth twice * METOPROLOL TARTRATE 50 MG TAB* Take 1 tablet by mouth twice * APIXABAN 5 MG TABLET Take 1 tablet by mouth twice * RYANNE CARR[facility]ZA [facility] SPACER as directed. TOLTERODINE ER 4 MG CAPSULE,E* Take by mouth once daily. BUDESONIDE-FORMOTEROL HFA 160* Inhale 2 Puffs as instructed * VENTOLIN INHALATION Inhale as instructed. LISINOPRIL 2.5 MG TABLET Take by mouth once daily. ESOMEPRAZOLE MAGNESIUM 20 MG * Take by mouth. ASCORBIC ACID (VITAMIN C) 500* Take by mouth once daily. MAGNESIUM OXIDE 500 MG TABLET Take by mouth. METFORMIN 500 MG TABLET Take by mouth twice daily wi* Problem List As Of Date 04/03/2018 Noted Resolved Paroxysmal atrial fibrillation (HCC) [I48.0] INVALID FOR* Type 2 diabetes mellitus without complication (*INVALID FOR* HTN (hypertension) [I10] INVALID FOR* Obesity, Class III, BMI >= 40 (morbid obesity) *INVALID FOR* Prescriptions ordered this encounter Disp Refills Start End BUMETANIDE 1 MG TABLET 60 t* 11 04/03/2018 04/03/2019 Route: ORAL Sig: Take 1 tablet by mouth twice daily. Medications Discontinued During This Encounter bumetanide (BUMEX) 1 mg tablet 60 t* 5 10/15/2017 04/03/2018 Route: ORAL Sig: Take 1 tablet by mouth twice daily. Disc: Reason for discontinue is not on file. Disposition: Return in about 6 months (around 10/02/2018). Follow-up and Disposition History Recorded Encounter Status:Closed by FRANKLIN URBAN MD on 04/03/18 Normal [facility] PROGRESSon 04-03-2018 Protein mass conc HNO ID: [id number] Author: Franklin Urban Service: (none) Author Type: Physician Type: Progress Notes Filed: 04/03/2018 11:01 AM Note Text: [facility] [place] [facility] Department of Cardiovascular Medicine OUTPATIENT VISIT DATE 04/03/18 OUTPATIENT VISIT TYPE ESTABLISHED PRIMARY CARE PHYSICIAN: Leona Gordon DO [address] [facility] [address] CHIEF COMPLAINT: Atrial fibrillation HISTORY OF PRESENT ILLNESS: Huang Robles is a very pleasant 62 year old male who presents today to follow up. History includes atrial fibrillation, HTN, obesity. For the most part he has improved his diet but he believes is the weather becomes colder he may be less compliant with a lean diet. He is trying to stay active during the daytime with housework and short walks. His primary care physician is leaving the area. Denies chest pain, syncope, palpitations PAST MEDICAL HISTORY Diagnosis Date - Atrial flutter (HCC) - BPH (benign prostatic hyperplasia) - DJD (degenerative joint disease) - DM (diabetes mellitus) (HCC) - HTN (hypertension) - Obesity PAST SURGICAL HISTORY Procedure Laterality Date - PAST SURGICAL HISTORY OF Bilateral knees and left shoulder Social History Substance Use Topics - Smoking status: Never Smoker - Smokeless tobacco: Never Used - Alcohol use No FAMILY HISTORY Problem Relation Age of Onset - Heart Mother CHF - Heart Brother CHF ALLERGIES: ALLERGIES No Known Allergies MEDICATIONS: bumetanide (BUMEX) 1 mg tablet Take 1 tablet by mouth twice daily. metoprolol tartrate, short acting, (LOPRESSOR) 50 mg tablet Take 1 tablet by mouth twice daily. apixaban (ELIQUIS) 5 mg tab(s) Take 1 tablet by mouth twice daily. RYANNE CARRANZA [facility] spcr as directed. tolterodine ER (DETROL LA) 4 mg 24 hr capsule Take by mouth once daily. budesonide-formoterol (SYMBICORT) 160-4.5 mcg/actuation inhaler Inhale 2 Puffs as instructed twice daily. ALBUTEROL SULFATE (VENTOLIN INHALATION) Inhale as instructed. lisinopril 2.5 mg tablet Take by mouth once daily. esomeprazole (NEXIUM) 20 mg capsule Take by mouth. ascorbic acid (VITAMIN C) 500 mg tablet Take by mouth once daily. Magnesium Oxide 500 mg tab Take by mouth. metFORMIN (GLUCOPHAGE) 500 mg tablet Take by mouth twice daily with meals. REVIEW OF SYSTEMS: GENERAL: Negative for: Fever. CARDIAC: See HPI above. HEENT: Negative for: Ringing in Ears, nosebleeds, bleeding gums. Adequate dentition NECK: Negative for: Pain, stiffness RESPIRATORY: Negative for: Blood in sputum, wheezing. GASTROINTESTINAL: Negative for: Trouble swallowing, blood in stool MUSCULOSKELETAL: Negative for: Joint stiffness and pain NEUROLOGIC: Negative for: Numbness, tremors PSYCHIATRIC: Negative for: Anxiety, depression SKIN: Negative for: Rashes, itching HEMATOLOGICAL/LYMPHATIC: Negative for: Easy bruising, easy bleeding, painful lymph nodes I personally interviewed, confirmed and edited the above information if obtained by others. PHYSICAL EXAMINATION: BP 123/73 Pulse 60 Resp 18 Ht 170.2 cm (5' 7 ) Wt 131.5 kg (290 lb) SpO2 96% BMI 45.42 kg/m? General: Well appearing, in no acute distress. Obese Neuro: Oriented to person, place and time, alert, cooperative. Eyes: Extra ocular movements intact, pupils react to light Neck: Unable to assess JVP given body habitus Heart: Regular rhythm, S1, S2 normal, no S3, no S4. No murmur. Lungs: Clear to auscultation bilaterally. Good respiratory effort. Abdomen: Soft, nontender, bowel sounds normal Skin: No clubbing, no cyanosis. Extremities: Mild lower extremity edema with erythema, chronic skin changes ? CARDIOVASCULAR MEDICINE TESTING: EKG 09/11/17 sinus bradycardia ventricular rate 57 BPM with incomplete right bundle branch block Pulmonary function testing 09/18/17 moderate COPD with significant response to bronchodilators and mild air trapping with normal DLCO Echocardiogram 08/30/17 EF 66%, stage II diastolic dysfunction, severe concentric LVH, RVSP 35 mmHg, ectatic aortic root 3.8 cm Vira scan 09/18/17 EF 65%, no ischemia, transient ischemic dilation 1.48 I have personally reviewed the above Cardiovascular Medicine Testing. ? IMPRESSION/PLAN: Huang Robles is a 62 year old male with history of atrial fibrillation, HTN, heart failure with preserved ejection fraction, obesity here for follow up ? Atrial fibrillation: Asymptomatic. CHADS2-VASc score: 2. High risk for thromboembolism. Continue metoprolol for rate control and apixaban for thromboembolic risk reduction. ? COPD: Moderate, extensive secondhand tobacco exposure. Heart failure with preserved ejection fraction (HFpEF): NYHA functional class III heart failure with preserved LVEF. Continue beta tolu and FER inhibitor in addition to Bumex for volume management. Euvolemic Obesity: I have extensively counseled regarding weight loss including low fat, low sodium diet, increasing omega 3 rich fish intake with reduction in red meat intake with portion control including multiple small meals over the course of the day instead of a few heavy meals, less post dinner snacking, reduction in fried and fast food, and increase in high fiber foods including fruit and vegetables. ? Hypertension: Controlled ? Disposition: Follow up in 6 months locally. Pending studies: None ? ? ? CONTACT INFORMATION: Thank you for allowing us to assist in the care your patient. As always please do not hesitate to contact us with further questions or concerns. ? Franklin Urban M.D. [facility] Department of Cardiovascular Medicine [facility] [place] [address] [address] [place] [address] Office: [phone] Normal [facility] MAGNESIUMon 10-04-2017 Magnesium 2.2 mg/dL Normal 1.6-2.3 [facility] Comment on above: Performed By: #### M Mega, BMP ####[facility] [address] [place] [address]Isma Rowe PROF CHEM 8 (BAS METB)on Anion gap 15.4 mmol/L Normal [facility] Comment on above: Performed By: #### Sameer Ayoub, BMP ####[facility] [address]pe[address]wsr[address] [place] [address]Isma Rowe BUN/Creatinine Ratio 18.6 mg/mg Normal [facility] Comment on above: Performed By: #### M Mega, BMP ####[facility] [address] [place] [id number] [place] Calcium 9.3 mg/dL Normal 8.4-10.2 [facility] Comment on above: Performed By: #### Sameer Ayoub, BMP ####[facility] [address]gfhwtqcbl55[address] [place] [id number] Chloride 97 mmol/L Critically low 98-107 [facility] Comment on above: Performed By: #### Sameer Ayoub, BMP ####[facility] [address]xhgkvq[address] [place] [id number] CO2 27.0 mmol/L Normal 22.0-30.0 [facility] Comment on above: Performed By: #### Sameer Ayoub, BMP ####[facility] [address] [place], [place] [address]Gerken [place] Creatinine 0.78 mg/dL Normal 0.66-1.25 [facility] Comment on above: Performed By: #### Sameer Ayoub, BMP ####[facility] [address] [place], [place] [address] eGFR (non-black) mL/min/{1.73_m2} Normal >=60 [facility] Comment on above: Performed By: #### Sameer Ayoub, BMP ####[facility] [address] [place], [place] [address] Glucose mass conc 140 mg/dL Critically high 74-106 [facility] Comment on above: Performed By: #### Sameer Ayoub, BMP ####[facility] [address] [place], [place] [address] Potassium molar conc 3.9 mmol/L Normal 3.4-5.0 [facility] Comment on above: Performed By: #### Sameer Ayoub, BMP ####[facility] Us[address]ae[address] [place], [place] [address] Sodium 136 mmol/L Critically low 137-145 [facility] Comment on above: Performed By: #### Sameer Ayoub, BMP ####[facility] [address] [place], [place] [address] Urea nitrogen 14.0 mg/dL Normal 9.0-20.0 [facility] Comment on above: Performed By: #### M G, BMP ####[facility] Bybuswioud[address] [place], [place] [address] GLYCOHEMOGLOBIN A1Con 2017 Glucose mass conc 148 mg/dL Normal [facility] Comment on above: Performed By: #### A 1C ####[facility] [address] [place], [place] [address] Hemoglobin A1c/Hemoglobin.total mass fraction (Bld) 6.8 % Critically high <=6.0 [facility] Comment on above: Performed By: #### A 1C ####[facility] [address] [place], [place] [address] CBC AUTO DIFFon 05-03-2017 Basophils Auto #/vol (Bld) 0.0 103/ul Normal 0.0-0.1 [facility] Comment on above: Performed By: #### C BC ####[facility] [address] [place] [address] [place] Basophils/100 WBC Auto (Bld) 0.4 % Normal 0.2-2.0 [facility] Comment on above: Performed By: #### C BC ####[facility] [address] [place] [address] [place] Eosinophils 0.1 103/ul Normal 0.0-0.7 [facility] Comment on above: Performed By: #### C BC ####[facility] [address] [place] [address] [place] Eosinophils/100 leukocytes 1.3 % Normal 0.9-7.0 [facility] Comment on above: Performed By: #### C BC ####[facility] [address] [place] [address] [place] Erythrocyte distribution width Auto Ratio (RBC) 13.1 % Normal 11.0-15.0 [facility] Comment on above: Performed By: #### C BC ####[facility] Qkyhhzfqjj[address]78 [address] [place] Erythrocytes (RBC) 4.32 106/ul Critically low 4.70-6.10 [facility] Comment on above: Performed By: #### C BC ####[facility] Skudrorfyu49[address] [place] Hematocrit (HCT) 38.8 % Critically low 42.0-54.0 [facility] Comment on above: Performed By: #### C BC ####[facility] Ezjjwujkyv6179 [address] [place] Hemoglobin mass conc (Bld) 13.3 g/dL Critically low 14.0-18.0 [facility] Comment on above: Performed By: #### C BC ####[facility] [address]qie[address] [place] [address] [place] IG # 0.05 10e3/ul Critically high 0.00-0.03 [facility] Comment on above: Performed By: #### C BC ####[facility] [address] [place] [address] [place] IG % 0.5 % Normal 0.0-0.5 [facility] Comment on above: Performed By: #### C BC ####[facility] [address] [place] [address] [place] Lymphocytes 2.0 103/ul Normal 1.2-3.8 [facility] Comment on above: Performed By: #### C BC ####[facility] E[address]nrwvx[address] [place] [address] [place] Lymphocytes/100 leukocytes 22.1 % Normal 20.5-60.0 [facility] Comment on above: Performed By: #### C BC ####[facility] Odndtwlfqw[address]54 [address] [place] MANUAL DIFF REQ NO Normal [facility] Comment on above: Performed By: #### C BC ####[facility] [address] [place] [address] [place] MCH 30.8 pg Normal 25.9-34.0 [facility] Comment on above: Performed By: #### C BC ####[facility] Q[address]ubzqr8[address] [place], [place] [address]Avfbve [place] MCHC mass conc (RBC) 34.3 g/dL Normal 29.9-35.2 [facility] Comment on above: Performed By: #### C BC ####[facility] [address] [place] [id number] MCV 89.8 fL Normal 80.0-94.0 [facility] Comment on above: Performed By: #### C BC ####[facility] [address] [place], [place] [address] Monocytes 0.7 103/ul Normal 0.3-0.8 [facility] Comment on above: Performed By: #### C BC ####[facility] [address]exr[address] [place], [place] [address] Monocytes/100 leukocytes 7.1 % Normal 1.7-12.0 [facility] Comment on above: Performed By: #### C BC ####[facility] [address] [place], [place] [address] Neutrophils 6.3 103/ul Normal 1.4-6.5 [facility] Comment on above: Performed By: #### C BC ####[facility] [address] [place], [place] [address] Neutrophils/100 WBC Auto (Bld) 68.6 % Normal 43.0-75.0 [facility] Comment on above: Performed By: #### C BC ####[facility] [address]lwoiswsbv[address] [place], [place] [address] Platelet mean volume (PMV) 9.6 fL Normal 9.5-13.5 [facility] Comment on above: Performed By: #### C BC ####[facility] [address]nsxjlvdu[address] [place], [place] [address] Platelets 236 103/ul Normal 150-450 [facility] Comment on above: Performed By: #### C BC ####[facility] [address]ix[address] [place], [place] [address]Jxosli [place] WBC (Leukocytes) 9.3 103/ul Normal 4.0-11.0 [facility] Comment on above: Performed By: #### C BC ####[facility] Nelxem[address]qnj14[address] [place], [place] [address]Rycmiu [place] LIPID PROFILEon 05-03-2017 CHOL-HDL RATIO NORM SEE BELOW Normal [facility] Comment on above: Result Comment: 3.3 - 4.4 LOW RISK 4.4 - 7.1 AVERAGE RISK 7.1 - 11.0 MODERATE RISK >11.0 HIGH RISK Performed By: #### L IPID, CMP ####[facility] [address]yrbbfr5748 [place], [place] [address]Kcpkfh [place] Cholesterol 133 mg/dL Normal <=200 [facility] Comment on above: Performed By: #### L IPID, CMP ####[facility] Smzgmdstvk1903 [place] [address] Cholesterol to HDL Ratio 4.0 {ratio} Normal [facility] Comment on above: Performed By: #### L IPID, CMP ####[facility] [address] [place] [address] HDL Cholesterol > or = 60 mg/dl - LO W CARDIOVASCULAR RISK <40 mg/dl - HIGH CARDIOVASCULAR RISK Normal [facility] Comment on above: Performed By: #### L IPID, CMP ####[facility] [address]ooiml79[address] [place] [address] HDL Cholesterol 30 mg/dL Normal [facility] Comment on above: Performed By: #### L IPID, CMP ####[facility] M[address]qrxttnc29[address] [place] [address] LDL Cholesterol SEE BELOW Normal [facility] Comment on above: Result Comment: <100 mg/dl OPTIMAL 100 - 129 mg/dl NEAR OR ABOVE OPTIMAL 130 - 159 mg/dl BORDERLINE HIGH 160 - 189 mg/dl HIGH >190 mg/dl VERY HIGH Performed By: #### L IPID, CMP ####[facility] Lowxlwlaxf[address] [place] [address] LDL Cholesterol 84.0 mg/dL Normal [facility] Comment on above: Performed By: #### L IPID, CMP ####[facility] Nmkrouljtn[address] [place] Triglyceride 99 mg/dL Normal <=150 [facility] Comment on above: Performed By: #### L IPID, CMP ####[facility] Hffjlwasoe[address] [place] VLDL CALC 20.0 mg/dL Normal [facility] Comment on above: Performed By: #### L IPID, CMP ####[facility] Lfphotpakp3572 [address] [place] PROF 14(COMP METB)on 017 Alanine aminotransferase (ALT) 35 U/L Normal 21-72 [facility] Comment on above: Performed By: #### L IPID, CMP ####[facility] Xjwugkkcdl6923 [address] [place] Albumin 4.0 g/dL Normal 3.5-5.0 [facility] Comment on above: Performed By: #### L IPID, CMP ####[facility] Xiqapgaxty[address] Albumin/Globulin Ratio 1.3 {ratio} Normal T [facility] Comment on above: Performed By: #### L IPID, CMP ####[facility] Oydrgxwaaq6177 [address] [place] Alkaline phosphatase (ALP) 99 U/L Normal 38-126 [facility] Comment on above: Performed By: #### L IPID, CMP ####[facility] Plcttpeizc[address] [place] Anion gap 15.2 mmol/L Normal [facility] Comment on above: Performed By: #### L IPID, CMP ####[facility] Mckppldvgh5036 [address] [place] Aspartate aminotransferase (AST) 23 U/L Normal 17-59 [facility] Comment on above: Performed By: #### L IPID, CMP ####[facility] Wkgieohrec[address] [place] [address] Bilirubin Ql (U) 0.8 mg/dL Normal 0.2-1.3 [facility] Comment on above: Performed By: #### L IPID, CMP ####[facility] [address]wfjr[address] [place], [place] [address] BUN/Creatinine Ratio 18.2 mg/mg Normal [facility] Comment on above: Performed By: #### L IPID, CMP ####[facility] [address]rg[address] [place] [address] [place] Calcium 9.1 mg/dL Normal 8.4-10.2 [facility] Comment on above: Performed By: #### L IPID, CMP ####[facility] [address] [place] [address] [place] Chloride 100 mmol/L Normal 98-107 [facility] Comment on above: Performed By: #### L IPID, CMP ####[facility] [address]un[address] [place] [address] [place] CO2 26.0 mmol/L Normal 22.0-30.0 [facility] Comment on above: Performed By: #### L IPID, CMP ####[facility] Xv[address]dexrlu[address] [place] [address] [place] Creatinine 0.87 mg/dL Normal 0.66-1.25 [facility] Comment on above: Performed By: #### L IPID, CMP ####[facility] [address]tnx[address] [place] [address] [place] eGFR (non-black) mL/min/{1.73_m2} Normal >=60 Th [facility] Comment on above: Performed By: #### L IPID, CMP ####[facility] [address]fa[address] [place], [place] [address]Gerken [place] Globulin 3.0 g/dL Normal [facility] Comment on above: Performed By: #### L IPID, CMP ####[facility] N[address] [place], [place] [address]ken [place] Glucose mass conc 143 mg/dL Critically high 74-106 Th [facility] Comment on above: Performed By: #### L IPID, CMP ####[facility] Mbpxfqewbz25[address] [place] Potassium molar conc 3.9 mmol/L Normal 3.4-5.0 [facility] Comment on above: Performed By: #### L IPID, CMP ####[facility] Andwnzyqvu1406 [address] [place] Protein 7.0 g/dL Normal 6.1-8.2 [facility] Comment on above: Performed By: #### L IPID, CMP ####[facility] Dckhbddjcs7[address] [place] Sodium 137 mmol/L Normal 137-145 [facility] Comment on above: Performed By: #### L IPID, CMP ####[facility] Ryrgjvqlyd[address] [place] Urea nitrogen 16.0 mg/dL Normal 9.0-20.0 [facility] Comment on above: Performed By: #### L IPID, CMP ####[facility] Ychdwgfvuz4147 [address] [place] PSAon 05-03-2017 PSA 0.52 ng/mL Normal <=4.00 [facility] Comment on above: Performed By: #### P SAD ####[facility] Frdicyfaoe7028 [address] [place] Vital Signs Date Time Vital Sign Value Performing Clinician Faci lity 01-05-2025 11:32-040 Body height 172.7 cm Jose Whitney DPM Work Phone: [facility] 01-05-2025 11:32-0400 Body mass index (BMI) [Ratio] 39.68 kg/m2 Jose Whitney DPM Work Phone: [facility] 01-05-2025 11:32-040 Body weight 118.39 kg Jose Whitney DPM Work Phone: [facility] 01-05-2025 11:32-0400 Respiratory rate 16 /min Jose Whitney DPM Work Phone: [facility] 10-16-2024 09:22-0400 Body height 172.7 cm Emre Orellana DPM FACFAS Work Phone: [facility] 10-16-2024 09:22-0400 Body mass index (BMI) [Ratio] 39.68 kg/m2 Emre Dolce DPM FACFAS Work Phone: [facility] 10-16-2024 09:22-0400 Body weight 118.39 kg Emre Dolce DPM FACFAS Work Phone: [facility] 10-16-2024 09:22-0400 Diastolic blood pressure 77 mm[Hg] Emre Dolce DPM FACFAS Work Phone: [facility] 10-16-2024 09:22-0400 Heart rate 75 /min Emre Dolce DPM FACFAS Work Phone: [facility] 10-16-2024 09:22-0400 Systolic blood pressure 128 mm[Hg] Emre Dolce DPM FACFAS Work Phone: [facility] 09-22-2024 09:49-0400 Body height 172.7 cm Bradley Antonio MD Work Phone: [facility] 09-22-2024 09:49-0400 Body mass index (BMI) [Ratio] 42.42 kg/m2 Bradley Antonio MD Work Phone: [facility] 09-22-2024 09:49-0400 Body weight 126.55 kg Bradley Antonio MD Work Phone: [facility] 09-22-2024 09:49-0400 Diastolic blood pressure 66 mm[Hg] Bradley Antonio MD Work Phone: [facility] 09-22-2024 09:49-0400 Heart rate 79 /min Bradley Antonio MD Work Phone: [facility] 09-22-2024 09:49-0400 Systolic blood pressure 114 mm[Hg] Bradley Antonio MD Work Phone: [facility] 08-05-2024 10:10-0500 Body height 172.7 cm Emre Orellana DPM FACFAS Work Phone: [facility] 08-05-2024 10:10-0500 Body mass index (BMI) [Ratio] 39.68 kg/m2 Emre Orellana DPM FACFAS Work Phone: [facility] 08-05-2024 10:10-0500 Body weight 118.39 kg Emre Orellana DPM FACFAS Work Phone: [facility] 08-05-2024 10:10-0500 Diastolic blood pressure 77 mm[Hg] Emre Orellana DPM FACFAS Work Phone: [facility] 08-05-2024 10:10-0500 Heart rate 75 /min Emre Orellana DPM FACFAS Work Phone: [facility] 08-05-2024 10:10-0500 Systolic blood pressure 129 mm[Hg] Emre Orellana DPM FACFAS Work Phone: [facility] 06-02-2024 12:29-0500 Body height 172.7 cm Haleigh Gillmor IMPORT EXPORT MANAGER Work Phone: [facility] 06-02-2024 12:29-0500 Body mass index (BMI) [Ratio] 39.53 kg/m2 Haleigh Gillmor IMPORT EXPORT MANAGER Work Phone: [facility] 06-02-2024 12:29-0500 Body weight 117.94 kg Haleigh Gillmor IMPORT EXPORT MANAGER Work Phone: [facility] 06-02-2024 12:29-0500 Diastolic blood pressure 76 mm[Hg] Haleigh Gillmor IMPORT EXPORT MANAGER Work Phone: [facility] 06-02-2024 12:29-0500 Heart rate 61 /min Haleigh Gitamor IMPORT EXPORT MANAGER Work Phone: [facility] 06-02-2024 12:29-0500 SaO2% (BldA) [Mass fraction] 92 % Haleigh Melchor IMPORT EXPORT MANAGER Work Phone: [facility] 06-02-2024 12:29-0500 Systolic blood pressure 128 mm[Hg] Haleigh Melchor IMPORT EXPORT MANAGER Work Phone: [facility] 04-06-2024 12:16-0400 Body height 182.88 cm DO W Ranjan Maciel Work Phone: [facility] 04-06-2024 12:16-0400 Body weight 127.45 kg DO W Ranjan Maciel Work Phone: [facility] 04-01-2024 08:55-0400 Body height 172.7 cm Emre Orellana DPM FACFAS Work Phone: [facility] 04-01-2024 08:55-0400 Body mass index (BMI) [Ratio] 42.79 kg/m2 Emre Collinsce DPM FACFAS Work Phone: [facility] 04-01-2024 08:55-0400 Body weight 127.64 kg Emre Collinsce DPM FACFAS Work Phone: [facility] 04-01-2024 08:55-0400 Diastolic blood pressure 74 mm[Hg] Emre Orellana DPM FACFAS Work Phone: [facility] 04-01-2024 08:55-0400 Heart rate 75 /min Emre Orellana DPM FACFAS Work Phone: [facility] 04-01-2024 08:55-0400 Systolic blood pressure 122 mm[Hg] Emre Orellana DPM FACFAS Work Phone: [facility] 03-10-2024 10:53-0400 Diastolic blood pressure 68 mm[Hg] Bradley Antonio MD Work Phone: [facility] 03-10-2024 10:53-0400 Heart rate 76 /min Bradley Antonio MD Work Phone: [facility] 03-10-2024 10:53-0400 Systolic blood pressure 100 mm[Hg] Bradley Antonio MD Work Phone: [facility] 03-09-2024 13:18-0400 Body mass index (BMI) [Ratio] 42.79 kg/m2 Christjasvirer Dayron DO Work Phone: [facility] 03-09-2024 13:18-0400 Body weight 127.64 kg Christopher Dayron DO Work Phone: [facility] 03-09-2024 13:18-0400 Diastolic blood pressure 75 mm[Hg] Christopher Dayron DO Work Phone: [facility] 03-09-2024 13:18-0400 Heart rate 71 /min Christopher Dayron DO Work Phone: [facility] 03-09-2024 13:18-0400 SaO2% (BldA) [Mass fraction] 98 % Christopher Dayron DO Work Phone: [facility] 03-09-2024 13:18-0400 Systolic blood pressure 119 mm[Hg] Christopher Dayron DO Work Phone: [facility] 02-04-2024 14:35-0400 Diastolic blood pressure 76 mm[Hg] DO W Ranjan Raheem Work Phone: [facility] 02-04-2024 14:35-0400 Heart rate 60 /min DO W Ranjan Raheem Work Phone: [facility] 02-04-2024 14:35-0400 Respiratory rate 16 /min DO W Ranjan Raheem Work Phone: [facility] 02-04-2024 14:35-0400 SaO2% (BldA) [Mass fraction] 98 % DO W Ranjan Raheem Work Phone: [facility] 02-04-2024 14:35-0400 Systolic blood pressure 122 mm[Hg] DO W Ranjan Raheem Work Phone: [facility] 02-04-2024 11:44-0400 Body temperature 97 [degF] DO W Ranjan Maciel Work Phone: [facility] 02-04-2024 07:50-0400 Body height 172.72 cm DO W Ranjan Maciel Work Phone: [facility] 02-04-2024 07:50-0400 Body weight 128 kg DO W Ranjan Maciel Work Phone: [facility] 01-08-2024 09:00-0400 Blood Pressure Location Baspooja Chen [facility] 01-08-2024 09:00-0400 Diastolic blood pressure 80 mm[Hg] Baspooja Ellingtonm [facility] 01-08-2024 09:00-0400 Heart rate 75 /min Baspooja Ellingtonm [facility] 01-08-2024 09:00-0400 SaO2% (BldA) [Mass fraction] 98 % Dayan Ellingtonm [facility] 01-08-2024 09:00-0400 Systolic blood pressure 118 mm[Hg] Baspooja Ellingtonm [facility] 12-24-2023 08:39-0400 Body height 172.7 cm Brenda Cotter INSURANCE AGENT-POWER TONG OPERATOR Work Phone: [facility] 12-24-2023 08:39-0400 Body mass index (BMI) [Ratio] 47.14 kg/m2 Brenda Cotter INSURANCE AGENT-POWER TONG OPERATOR Work Phone: [facility] 12-24-2023 08:39-0400 Body weight 140.62 kg Brenda Cotter INSURANCE AGENT-POWER TONG OPERATOR Work Phone: [facility] 12-24-2023 08:39-0400 Diastolic blood pressure 78 mm[Hg] Brenda Cotter INSURANCE AGENT-POWER TONG OPERATOR Work Phone: [facility] 12-24-2023 08:39-0400 Heart rate 70 /min Brenda Cotter INSURANCE AGENT-POWER TONG OPERATOR Work Phone: [facility] 12-24-2023 08:39-0400 Systolic blood pressure 120 mm[Hg] Brenda Cotter INSURANCE AGENT-POWER TONG OPERATOR Work Phone: [facility] 11-22-2023 10:46-0400 Blood Pressure Location Baspooja Ellingtonm [facility] 11-22-2023 10:46-0400 Diastolic blood pressure 84 mm[Hg] Baspooja Ellingtonm [facility] 11-22-2023 10:46-0400 Heart rate 61 /min Baspooja Ellingtonm [facility] 11-22-2023 10:46-0400 SaO2% (BldA) [Mass fraction] 97 % Dayan Ellingtonm [facility] 11-22-2023 10:46-0400 Systolic blood pressure 128 mm[Hg] Baspooja Ellingtonm [facility] 09-23-2023 09:49-0400 Body height 170.2 cm Brenda Cotter INSURANCE AGENT-POWER TONG OPERATOR Work Phone: [facility] 09-23-2023 09:49-0400 Body mass index (BMI) [Ratio] 46.83 kg/m2 Brenda Cotter INSURANCE AGENT-POWER TONG OPERATOR Work Phone: [facility] 09-23-2023 09:49-0400 Body weight 135.63 kg Brenda Cotter INSURANCE AGENT-POWER TONG OPERATOR Work Phone: [facility] 09-23-2023 09:49-0400 Diastolic blood pressure 62 mm[Hg] Brenda Cotter INSURANCE AGENT-POWER TONG OPERATOR Work Phone: [facility] 09-23-2023 09:49-0400 Heart rate 72 /min Brenda Cotter INSURANCE AGENT-POWER TONG OPERATOR Work Phone: [facility] 09-23-2023 09:49-0400 Systolic blood pressure 120 mm[Hg] Brenda Cotter INSURANCE AGENT-POWER TONG OPERATOR Work Phone: [facility] 12-27-2022 08:19-0400 Body height 167.64 cm Jesse Gonzales Work Phone: [facility] DO Work Phone: 12-27-2022 08:19-0400 Body mass index (BMI) [Ratio] 48.58 kg/m2 Jesse Gonzales Work Phone: [facility] DO Work Phone: 12-27-2022 08:19-0400 Body surface area Derived from formula 2.38 m2 Jesse Gonzales Work Phone: [facility] DO Work Phone: 12-27-2022 08:19-0400 Body weight 136.53 kg Jesse Gonzales Work Phone: [facility] DO Work Phone: 12-27-2022 08:19-0400 Diastolic blood pressure 70 mm[Hg] Jesse Gonzales Work Phone: [facility] DO Work Phone: 12-27-2022 08:19-0400 Heart rate 66 /min Jesse Gonzales Work Phone: [facility] DO Work Phone: 12-27-2022 08:19-0400 Systolic blood pressure 120 mm[Hg] Jesse Gonzales Work Phone: [facility] DO Work Phone: 08-27-2022 10:52-0500 Blood Pressure Location Karissa BANKS [facility] 08-27-2022 10:52-0500 Diastolic blood pressure 83 mm[Hg] Karissa BANKS [facility] 08-27-2022 10:52-0500 Heart rate 70 /min Karissa BANKS [facility] 08-27-2022 10:52-0500 Respiratory rate 16 /min Karissa BANKS [facility] 08-27-2022 10:52-0500 Systolic blood pressure 138 mm[Hg] Karissa BANKS [facility] 01-03-2022 13:46-0400 Body height 167.64 cm Jesse Gonzales Work Phone: [facility] DO Work Phone: 01-03-2022 13:46-0400 Body mass index (BMI) [Ratio] 47.61 kg/m2 Jesse Gonzales Work Phone: [facility] DO Work Phone: 01-03-2022 13:46-0400 Body surface area Derived from formula 2.36 m2 Jesse Gonzales Work Phone: [facility] DO Work Phone: 01-03-2022 13:46-0400 Body weight 133.81 kg Jesse Gonzales Work Phone: [facility] DO Work Phone: 01-03-2022 13:46-0400 Diastolic blood pressure 70 mm[Hg] Jesse Gonzales Work Phone: [facility] DO Work Phone: 01-03-2022 13:46-0400 Heart rate 64 /min Jesse Gonzales Work Phone: [facility] DO Work Phone: 01-03-2022 13:46-0400 Systolic blood pressure 108 mm[Hg] Jesse Gonzales Work Phone: [facility] DO Work Phone: Encounters Encounter Date Encounter Type Care Provider Facility Start: 03-28-2026 ambulatory GROUP UNDERWRITER Paty L Ignacio Facil ity:[facility] [place] Start: 09-23-2025 ambulatory Ruth X Orzech Facilit y:[facility] [place] Start: 09-16-2025 ambulatory Ruth X Orzech Facilit y:[facility] [place] Start: 05-17-2025 ambulatory GROUP UNDERWRITER Paty L Ignacio Facil ity:[facility] [place] Start: 05-03-2025 ambulatory GROUP UNDERWRITER Paty L Ignacio Facil ity:[facility] [place] Start: 03-25-2025 End: 03-25-2025 ambulatory Ruth X Orzech Facility:[facility] [place] Start: 03-25-2025 End: 03-25-2025 Patient encounter procedure Ruth X Orzech [facility] Start: 03-22-2025 End: 03-22-2025 ambulatory Paty L Ignacio Facility:[facility] [place] Start: 02-15-2025 End: 02-15-2025 ambulatory Paty L Ignacio Facility:[facility] [place] Start: 01-05-2025 End: 01-05-2025 Bamboo flowsheet Jose Whitney DPM Work Phone: [facility] Start: 01-05-2025 End: 01-05-2025 Bamboo flowsheet Jose Whitney DPM Work Phone: [facility] Start: 01-05-2025 End: 01-05-2025 Office outpatient visit 15 minutes Jose Whitney DPM Work Phone: [facility] Comment on above: Venous insufficiency of both lower extremities (Primary Dx); Type 2 diabetes mellitus without complication, without long-term current use of insulin (HCC); Pain due to onychomycosis of toenails of both feet Start: 01-05-2025 End: 01-05-2025 ambulatory JOSE Payam CHELO Not Available Start: 11-18-2024 End: 11-18-2024 Lab Drop off Paty Pierre [facility] Start: 11-18-2024 End: 11-18-2024 ambulatory Paty Pierre Facility:[facility] Start: 10-16-2024 End: 10-16-2024 Bamboo flowsheet Emre Orellana DPM FACFAS Work Phone: [facility] Start: 10-16-2024 End: 10-16-2024 Bamboo flowsheet Emre Orellana DPM FACFAS Work Phone: [facility] Start: 10-16-2024 End: 10-16-2024 Patient encounter procedure Emre Orellana DPM FACFAS Work Phone: [facility] Comment on above: Type 2 diabetes kal itus without complication, without long- term current use of insulin (Primary Dx); Onychomycosis; Pain in right toe(s); Pain in left toe(s) Start: 10-16-2024 End: 10-16-2024 ambulatory EMRE ORELLANA Not Available Start: 09-22-2024 End: 09-22-2024 Office outpatient visit 25 minutes Bradley Antonio MD Work Phone: [facility] Comment on above: Two-vessel coronary artery disease (Primary Dx); Coronary artery disease of [place] artery of [place] heart with stable angina pectoris; Permanent atrial fibrillation (Multi); Mixed hyperlipidemia; Ischemic cardiomyopathy; Essential hypertension; BMI 40.0-44.9, adult (Multi); Shortness of breath; Lower extremity edema; Never smoked tobacco; Essential (primary) hypertension; 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 Start: 09-22-2024 End: 09-22-2024 ambulatory [facility] Start: 09-11-2024 End: 09-12-2024 ambulatory Karissa BANKS Facility:[facility] Start: 09-11-2024 End: 09-11-2024 ambulatory Karissa BANKS Facility:[facility] Start: 08-17-2024 End: 08-17-2024 ambulatory Paty L Ignacio Facility:[facility] [place] Start: 08-05-2024 End: 08-05-2024 Bamboo flowsheet Emre Orellana DPM FACFAS Work Phone: [facility] Start: 08-05-2024 End: 08-05-2024 Bamboo flowsheet Emre Orellana DPM FACFAS Work Phone: [facility] Start: 08-05-2024 End: 08-05-2024 Patient encounter procedure Emre Orellana DPM FACFAS Work Phone: [facility] Comment on above: Type 2 diabetes kal itus without complication, without long- term current use of insulin (CMS/HCC) (Primary Dx); Onychomycosis; Pain in right toe(s); Pain in left toe(s) Start: 08-05-2024 End: 08-05-2024 ambulatory EMRE COLLINSALO Not Available Start: 06-22-2024 End: 06-22-2024 Lab Drop off Paty L Ignacio [facility] Start: 06-22-2024 End: 06-22-2024 ambulatory Paty L Ignacio Facility:[facility] [place] Start: 06-04-2024 End: 06-12-2024 ambulatory Paty L Ignacio Facility:[facility] [place] Start: 06-02-2024 End: 06-02-2024 Bamboo flowsheet Haleigh Melchor IMPORT EXPORT MANAGER Work Phone: [facility] Start: 06-02-2024 End: 06-02-2024 Bamboo flowsheet Haleigh Meclhor IMPORT EXPORT MANAGER Work Phone: [facility] Start: 06-02-2024 End: 06-02-2024 ambulatory HALEIGH MELCHOR Not Available Start: 06-02-2024 End: 06-02-2024 Office outpatient visit 25 minutes Haleigh Melchor IMPORT EXPORT MANAGER Work Phone: [facility] Comment on above: Memory impairment (P rimary Dx); Essential hypertension ([facility]); Type 2 diabetes mellitus with other neurologic complication, without long-term current use of insulin ([facility]); Concentration deficit Start: 05-18-2024 End: 05-18-2024 ambulatory Paty L Ignacio Facility:[facility] Start: 05-18-2024 End: 05-18-2024 Patient encounter procedure Paty L Ignacio [facility] Start: 05-18-2024 End: 05-18-2024 ambulatory Paty L Ignacio Facility:[facility] Start: 05-14-2024 End: 05-14-2024 ambulatory Paty L Ignacio Facility:[facility] [place] Start: 05-04-2024 End: 05-04-2024 ambulatory Paty L Ignacio Facility:[facility] Start: 04-24-2024 End: 05-19-2024 ambulatory Paty L Ignacio Facility:[facility] Start: 04-20-2024 End: 04-20-2024 Patient encounter procedure Jose Moulton PhD Work Phone: [facility] Comment on above: Memory impairment (P rimary Dx); Concentration deficit; MIKAYLA (obstructive sleep apnea); Other insomnia Start: 04-20-2024 End: 04-20-2024 ambulatory JOSE MOULTON Not Available Start: 04-20-2024 End: 04-20-2024 Bamboo flowsheet Jose Moulton PhD Work Phone: [facility] Start: 04-20-2024 End: 04-20-2024 Bamboo flowsheet Jose Moulton PhD Work Phone: [facility] Start: 04-08-2024 End: 04-08-2024 Patient encounter procedure Jose Moulton PhD Work Phone: [facility] Comment on above: Memory impairment (P rimary Dx); Concentration deficit; MIKAYLA (obstructive sleep apnea); Other insomnia Start: 04-08-2024 End: 04-08-2024 ambulatory EMRE ORELLANA Not Available Start: 04-07-2024 End: 04-07-2024 Patient encounter procedure DO Kyleigh Maciel Work Phone: [facility] [place] Work Phone: Start: 04-07-2024 End: 04-07-2024 ambulatory NON STAFF [facility] Work Phone: Start: 04-06-2024 End: 04-07-2024 Pre-admission assessment Dayan Chen [facility] Start: 04-01-2024 End: 04-01-2024 Bamboo flowsheet Emre Helena Collinsce DPM FACFAS Work Phone: [facility] Start: 04-01-2024 End: 04-01-2024 Bamboo flowsheet Emre Helena Dolce DPM FACFAS Work Phone: [facility] Start: 04-01-2024 End: 04-01-2024 Patient encounter procedure Emre Helena Dolce DPM FACFAS Work Phone: [facility] Comment on above: Type 2 diabetes kal itus without complication, without long- term current use of insulin ([facility]) (Primary Dx); Onychomycosis; Pain in right toe(s); Pain in left toe(s) Start: 04-01-2024 End: 04-01-2024 ambulatory EMRE ORELLANA Not Available Start: 03-23-2024 End: 03-23-2024 Bamboo flowsheet Jose Moulton PhD Work Phone: [facility] Start: 03-23-2024 End: 03-23-2024 Bamboo flowsheet Jose Moulton PhD Work Phone: [facility] Start: 03-23-2024 End: 03-23-2024 Patient encounter procedure Jose Moulton PhD Work Phone: [facility] Comment on above: Memory impairment (P rimary Dx); Concentration deficit; MIKAYLA (obstructive sleep apnea); Other insomnia Start: 03-23-2024 End: 04-16-2024 ambulatory [facility] L [facility] Start: 03-19-2024 End: 03-19-2024 ambulatory Paty L Ignacio Facility:[facility] Start: 03-13-2024 End: 03-13-2024 ambulatory Paty L Ignacio Facility:[facility] Start: 03-13-2024 End: 03-13-2024 Lab Drop off Paty L Ignacio [facility] Start: 03-12-2024 End: 03-12-2024 ambulatory Paty L Ignacio Facility:[facility] Start: 03-10-2024 End: 03-10-2024 Clinisync Result Encounter Avi Padgett DO Work Phone: [facility] Unsolicited Start: 03-10-2024 End: 03-10-2024 Clinisync Result Encounter Avi Padgett DO Work Phone: [facility] Unsolicited Start: 03-10-2024 End: 03-10-2024 Office outpatient visit 25 minutes Bradley Antonio MD Work Phone: [facility] Comment on above: Two-vessel coronary artery disease (Primary Dx); Coronary artery disease of [place] artery of [place] heart with stable angina pectoris ([facility]-H[facility]); Permanent atrial fibrillation (Multi); Mixed hyperlipidemia; Ischemic cardiomyopathy; 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; BMI 40.0-44.9, adult (Multi); Shortness of breath; Lower extremity edema; Never smoked tobacco Start: 03-10-2024 End: 03-10-2024 ambulatory [facility] Amb[facility] Start: 03-10-2024 End: 06-08-2024 Beata Pratt [facility] Start: 03-10-2024 End: 06-08-2024 ambulatory Satish Pratt Facility:[facility] Start: 03-10-2024 End: 09-17-2024 Patient encounter procedure Avi Padgett [facility] Start: 03-09-2024 End: 03-09-2024 Bamboo flowsheet Avi Padgett DO Work Phone: [facility] Start: 03-09-2024 End: 03-09-2024 Bamboo flowsheet Avi Padgett DO Work Phone: [facility] Start: 03-09-2024 End: 03-09-2024 Office outpatient new 45 minutes Avi Padgett DO Work Phone: [facility] Comment on above: Memory impairment (P rimary Dx); Essential hypertension (CMS/HCC); Type 2 diabetes mellitus with other neurologic complication, without long-term current use of insulin (CMS/HCC); Paroxysmal atrial fibrillation ([facility]/HCC) Start: 03-09-2024 End: 03-09-2024 ambulatory AVI PADGETT Not Available Start: 02-17-2024 End: 02-17-2024 ambulatory Paty L Ignacio Facility:[facility] [place] Start: 02-10-2024 End: 08-25-2024 ambulatory Paty L Ignacio Facility:CD:[id number] Start: 02-04-2024 End: 02-04-2024 Admission to same day surgery center DO Kyleigh Maciel Work Phone: [facility] [employer] [place] Work Phone: Start: 02-04-2024 End: 02-04-2024 ambulatory NON STAFF [facility] Work Phone: Start: 01-22-2024 End: 01-22-2024 ambulatory [facility] Ambulatory Start: 01-22-2024 End: 01-22-2024 ambulatory EMRE ORELLANA Not Available Start: 01-20-2024 End: 01-20-2024 ambulatory Paty L Ignacio Facility:[facility] [place] Start: 01-13-2024 Evaluation and management of inpatient KD MARGARET [facility] Start: 01-13-2024 Evaluation and management of inpatient KD ROBLES [facility] Start: 01-12-2024 Evaluation and management of inpatient LAUREANO SWAN [facility] Start: 01-12-2024 End: 01-15-2024 Evaluation and management of inpatient CAYLA SINGLETON [facility] Start: 01-08-2024 End: 01-08-2024 Patient encounter procedure Dayan Chen [facility] Start: 12-24-2023 End: 01-21-2024 Pre-admission assessment BRENDA COTTER [facility] Start: 12-24-2023 End: 12-24-2023 Office outpatient visit 15 minutes Brenda Cotter INSURANCE AGENT[employer] Work Phone: [facility] Comment on above: Permanent atrial fib rillation (Multi) (Primary Dx); Essential hypertension; custodial current use of 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 therapy; BMI 45.0-49.9, adult (Multi); Lower extremity edema; Shortness of breath Start: 12-24-2023 End: 12-24-2023 ambulatory [facility] Ambulatory Start: 12-02-2023 End: 12-23-2023 ambulatory [facility] Start: 11-29-2023 End: 11-29-2023 Patient encounter procedure Dayan Chen [facility] Start: 11-22-2023 End: 11-22-2023 Patient encounter procedure Dayan Chen [facility] Start: 09-23-2023 End: 09-23-2023 Office outpatient visit 15 minutes Brenda Cotter INSURANCE AGENT-POWER TONG OPERATOR Work Phone: [facility] Comment on above: Permanent atrial fib rillation (CMS/HCC) (Primary Dx); 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; Essential hypertension; Type 2 diabetes mellitus without complication, without long-term current use of insulin ([facility]); Lower extremity edema; BMI 45.0-49.9, adult ([facility]) Start: 08-20-2023 End: 08-20-2023 Patient encounter procedure CORBIN YEPEZ [facility] Start: 12-27-2022 Office outpatient vi sit 25 minutes Jesse Hare Gonzales Work Phone: [facility] DO Work Phone: Start: 12-27-[address] Vel Muñoz II Facility: Start: 11-15-2022 Rx Renewal Jesse Hare Gonzales Work Phone: [facility] DO Work Phone: Start: 08-27-2022 End: 08-27-2022 Patient encounter procedure Karissa Gray JOCELYN [facility] Start: 08-14-2022 Rx Renewal Jesse Gonzales Work Phone: [facility] DO Work Phone: Start: 02-12-2022 Telephone encounter Jesse mars Work Phone: [facility] DO Work Phone: Start: 02-07-2022 Rx Renewal Jesse Hare Christian Work Phone: [facility] DO Work Phone: Start: 01-03-2022 Office outpatient vi sit 25 minutes Jesse Gonzales Work Phone: [facility] DO Work Phone: Start: 01-03-[address] Vel Muñoz II Facility:[id number] Start: 12-13-2021 Rx Renewal No PCP None [facility] [place] [facility] DO Work Phone: Start: 11-30-2021 Rx Renewal No PCP None [facility] [facility] DO Work Phone: Start: 10-04-2017 End: 10-05-2017 Ambulatory LEONA GORDON Facility:[facility] Start: 08-09-2017 End: 08-10-2017 Ambulatory MELA MONGE Facility:[facility] Start: 05-03-2017 End: 05-04-2017 Ambulatory LEONA GORDON Facility:[facility] Procedures Date Procedure Procedure Detail Performing Clinician Start: 09-22-2024 Ecg routine ecg w/le ast 12 lds w/i&r Bradley Antonio MD Work Phone: Start: 04-07-2024 MRI of head DO W Ranjan Maciel Work Phone: Start: 03-10-2024 [facility] TSH Hemant Padgett DO Work Phone: Start: 02-04-2024 CL [facility] Angio DO W Ranjan Maciel Work Phone: Start: 02-04-2024 CL Stent 1st Vessel CX BENEDICTO DO W Ranjan Maciel Work Phone: Start: 02-04-2024 CL Stent 1st Vessel LAD BENEDICTO DO W Ranjan Maciel Work Phone: Start: 01-13-2024 Lipid 1996 panel - S parisa or Plasma Bradley Antonio MD Work Phone: Start: 09-03-2019 Echocardiography Start: 05-13-2019 Colonoscopy Brenda Pk h INSURANCE AGENT-POWER TONG OPERATOR Work Phone: Start: 05-13-2019 Colonoscopy Karissa KATZ Start: 04-03-2019 Laparoscopic cholecystectomy Karissa BANKS Start: 12-15-2015 Transurethral prostatectomy Karissa BANKS Start: 11-02-2015 Urodynamic studies Edy BANKS Start: 09-08-2015 Total replacement of hip Karissa BANKS Comment on above: left Start: 05-10-2015 left total knee arhroplasty Karissa BANKS Start: 02-22-2015 right total knee arthroplasty Karissa BANKS Arthroplasty of knee No PCP None Cataract (disorder) Karissa BANKS Comment on above: bilat eye Cataract surgery No PCP None Cholecystectomy No PCP None ERCP not completed d ue to anatomical derangements from previous surgery Karissa BANKS History of placement of stent for coronary artery disease Hx of heart artery stent DO Kyleigh Maciel Work Phone: Placement of stent i n cardiac conduit Omidelli Dayron Prosthetic arthropla sty of the hip No PCP None Repair of musculoten dinous cuff of shoulder No PCP None Repair of musculoten dinous cuff of shoulder Karissa BANKS Comment on above: left shioulder Tonsillectomy No PCP None Tonsillectomy Karissa BANKS Total colonoscopy No PCP Non e Total replacement of hip Tho giana Hare Christian Work Phone: Plan of Treatment Date Care Activity Detail Author Start: 05-13-2029 Screening for malign ant neoplasm of colon [facility] Start: 04-08-2025 End: 04-08-2025 Patient encounter procedure 04/08/2025 10:50 AM EDT Office Visit [facility] [address] [facility] [address] [place] [address] Bradley Antonio MD [address] [facility] [address], [address] [place] [address] [facility] Start: 03-13-2025 Urine screening for protein Diabetes: Urine Protein Screening [facility] Start: 02-22-2025 Influenza vaccination [facility] Start: 01-14-2025 Urine screening for protein Diabetes: Urine Protein Screening [facility] Start: 01-12-2025 Lipid panel Lipid Panel [facility] Start: 01-05-2025 End: 01-05-2025 Patient encounter procedure 01/05/2025 11:30 AM EDT Office Visit [facility] [address] [place] [phone] Jose Whitney DPM [address] [facility] [address] [place] [address] Type 2 diabetes mellitus without complication, without long-term current use of insulin (HCC) (Primary Dx); Venous insufficiency of both lower extremities; Pain due to onychomycosis of toenails of both feet [facility] Comment on above: Type 2 diabetes kal itus without complication, without long- term current use of insulin (HCC) (Primary Dx); Venous insufficiency of both lower extremities; Pain due to onychomycosis of toenails of both feet Start: 12-28-2024 End: 12-28-2024 Patient encounter procedure 12/28/2024 9:20 AM EDT Office Visit [facility] [address] [facility] [place] [address] Emre Orellana DPM FAC[facility]AS [address] [facility] [place] [address] [facility] Start: 11-09-2024 Glaucoma screening Diabetes: R etinopathy Screening [facility] Start: 10-16-2024 End: 10-16-2024 Patient encounter procedure [facility] Comment on above: Arrived Start: 09-22-2024 End: 09-22-2024 Patient encounter procedure 09/22/2024 9:40 AM EDT Office Visit [facility] [address] [facility] [address] [place] [phone] Bradley Antonio MD [address] [facility] [address], [address] [place] [address] [facility] Start: 08-05-2024 End: 08-05-2024 Patient encounter procedure [facility] Comment on above: Arrived Start: 06-02-2024 End: 06-02-2024 Patient encounter procedure 06/02/2024 12:40 PM EST Office Visit [facility] [address] [place] [phone] Haleigh Melchor, IMPORT EXPORT MANAGER [address] [place], [place] Arrived [facility] Comment on above: Arrived Start: 05-11-2024 End: 05-11-2024 Patient encounter procedure 05/11/2024 3:00 PM EST Office Visit [facility] [place] [address] [place] [phone] Michaela Wang, DO [address] [place], [place] [id number] [facility] [place] [facility] Start: 04-27-2024 End: 04-27-2024 Patient encounter procedure 04/27/2024 12:15 PM EST Office Visit [facility] [place] [address] [place] [phone] Avi Padgett, DO [address] [place] [address] [facility] [place] [facility] Start: 04-20-2024 End: 04-20-2024 Patient encounter procedure [facility] Comment on above: Arrived Start: 04-08-2024 End: 04-08-2024 Patient encounter procedure 04/08/2024 8:00 AM EDT Office Visit [facility] [address] [place] [address] [facility] [address] [facility] Start: 04-01-2024 End: 04-01-2024 Patient encounter procedure [facility] Comment on above: Arrived Start: 03-23-2024 End: 03-23-[address] [facility] Comment on above: Memory impairment Start: 03-09-2024 End: 03-09-2025 Cobalamin (Vitamin B12) [Mass/volume] in Serum or Plasma Vitamin B12 Lab Routine Memory impairment Expected: 03/09/2024 (Approximate), Expires: 03/09/2025 [facility] Comment on above: Expected: 03/09/2024 (Approximate), Expires: 03/09/2025 Start: 03-09-2024 End: 03-09-2025 MR Brain WO and W contrast IV MR brain w and wo contrast routine Imaging Routine Memory impairment Expected: 03/09/2024, Expires: 03/09/2025 [facility] Work Phone: Comment on above: Expected: 03/09/2024 , Expires: 03/09/2025 Start: 03-09-2024 End: 03-09-2025 Thyrotropin [Units/volume] in Serum or Plasma TSH Lab Routine Memory impairment Expected: 03/09/2024 (Approximate), Expires: 03/09/2025 [facility] Comment on above: Expected: 03/09/2024 (Approximate), Expires: 03/09/2025 Start: 03-09-2024 End: 03-09-2024 Patient encounter procedure 03/09/2024 1:30 PM EDT Office Visit [facility] [address] [place] [phone] Avi Padgett DO [address] [place], [place] [phone] [facility] Comment on above: Arrived Start: 02-23-2024 COVID-19 Vaccine () COVID-19 Vaccine () [facility] Start: 02-23-2024 COVID-19 Vaccine () COVID-19 Vaccine () [facility] Start: 02-23-2024 Influenza vaccination [facility] Start: 02-04-2024 [facility] Start: 12-24-2023 End: 12-23-2025 NM Heart Perfusion W stress and W radionuclide IV Nuclear Stress Test Cardiac Nuclear Medicine Routine Shortness of breath Expected: 12/24/2023 (Approximate), Expires: 12/23/2025 [facility] Service Area Work Phone: Comment on above: Expected: 12/24/2023 (Approximate), Expires: 12/23/2025 Start: 12-24-2023 FUV, Provider: Vel Muñoz, Status: Pen, Time: 8:40 AM FUV, Provider: Vel Muñoz, Status: Pen, Time: 8:40 AM -[facility] [address] DO Work Phone: Start: 12-24-2023 End: 12-24-2023 Patient encounter procedure 12/24/2023 8:40 AM EDT Office Visit [address] [place] [address] Vel Muñoz MD [address] [facility] 2, [facility] [address] [place] [address] [facility] Start: 02-22-2023 COVID-19 Vaccine ( season) COVID-19 Vaccine ( season) [facility] Start: 02-22-2023 COVID-19 Vaccine ( season) COVID-19 Vaccine ( season) [facility] Start: 12-27-2022 FUV, Provider: Vel Muñoz, Status: Pen, Time: 8:30 AM FUV, Provider: Vel Muñoz, Status: Pen, Time: 8:30 AM -[facility] [address] DO Work Phone: Start: 01-03-2022 FUV, Provider: Vel Muñoz, Status: Pen, Time: 2:00 PM FUV, Provider: Vel Muñoz, Status: Pen, Time: 2:00 PM -[facility] [address] DO Work Phone: Start: 2020 Pneumococcal Vaccine : 65+ Years (1 of 1 - PCV) Pneumococcal Vaccine: 65+ Years (1 of 1 - PCV) [facility] Start: 2015 RSV High Risk: (Elde rly (60+) or Population) (1 - Risk 60-74 years 1-dose series) RSV High Risk: (Elderly (60+) or Population) (1 - Risk 60-74 years 1-dose series) [facility] Start: 2015 RSV patient s and/or patients aged 60+ years (1 - 1-dose 60+ series) RSV patients and/or patients aged 60+ years (1 - 1-dose 60+ series) [facility] Start: 2005 Pneumococcal Vaccine : 65+ Years (1 of 1 - PCV) Pneumococcal Vaccine: 65+ Years (1 of 1 - PCV) [facility] Start: 2005 Zoster Vaccines (1 o f 2) Zoster Vaccines (1 of 2) [facility] Start: 1977 DTaP/Tdap/Td Vaccine s (1 - Tdap) DTaP/Tdap/Td Vaccines (1 - Tdap) [facility] Start: 1974 Pneumococcal vaccination Pneumococcal Vaccine (1 of 2 - PCV) [facility] Start: 1974 Urine screening for protein Diabetes: Urine Protein Screening [facility] Start: 1973 Hepatitis C screening Hepatitis C Sc [facility] Start: 1965 Diabetic foot examination Diabetes: Foot Exam [facility] Start: 1965 Glaucoma screening Diabetes: R etinopathy Screening [facility] Start: 1961 Pneumococcal Vaccine : 65+ Years (1 - PCV) Pneumococcal Vaccine: 65+ Years (1 - PCV) [facility] Start: 1961 Pneumococcal Vaccine : 65+ Years (1 of 2 - PCV) Pneumococcal Vaccine: 65+ Years (1 of 2 - PCV) [facility] Start: 1955 Annual wellness visit Welcome to Medicare Visit [facility] Start: 1955 Hemoglobin A1c measurement Diabetes: Hemoglobin A1C [facility] Start: 1955 Lipid panel Lipid Panel [facility] Start: 1955 Medicare Annual Wellness (AWV) Medicare Annual Wellness (AWV) [facility] Start: 1955 Medicare Annual Wellness Visit Medicare Annual Wellness Visit (AWV) [facility] Start: 1955 Screening for malign ant neoplasm of colon [facility] Start: 1955 Urine screening for protein Diabetes: Urine Protein Screening [facility] Patient Education Know your Meds [facility] Work Phone: Patient referral [facility] Work Phone: Immunizations Immunization Date Immunization Notes Care Provider Eva power 03-24-2021 Pfizer-BioNTech COVID-19 Vacc 30 MCG/0.3ML Intramuscular Suspension Jesse Gonzales Work Phone: [facility] 09-09-2020 Pfizer-BioNTech COVID-19 Vacc 30 MCG/0.3ML Intramuscular Suspension No PCP None [facility] 08-19-2020 Pfizer-BioNTech COVID-19 Vacc 30 MCG/0.3ML Intramuscular Suspension Jesse Gonzales Work Phone: [facility] 08-19-2019 SARS-CoV-2 (COVID-19 ) mRNA BNT-162b2 vax Karissa BANKS [facility] NEGATED: Highlighted row has not occurred!03-12-2024 influenza virus vaccine, unspecified formulation Paty Pierre [facility] [place] NEGATED: Highlighted row has not occurred!06-27-2020 influenza virus vaccine, unspecified formulation Karissa BANKS [facility] Payers Date Payer Category Payer Unknown [id number] 2024 Medicare [id number] 2024 Self-pay 2023 Medicare (Managed Care) 1.2. [id number] 2023 Unknown 2023 Medicare [id number] 2019 Medicare [id number] 2014 Medicare [id number] 1959 Medicare [id number] 1955 Unknown [id number] 2.16.840.1.886093.3.579.2.356 1955 Unknown [id number] 2.16.840.1.642611.3.579.2.356 1955 Unknown [id number] 2.16.840.1.206084.3.579.2.1286 1955 Unknown [id number] 2.16.840.1.667814.3.579.2.727 1955 Unknown [id number] 2.16.840.1.434157.3.579.2.727 1955 Unknown [id number] 2.16.840.1.820834.3.579.2.727 1955 Unknown [id number] 2.16.840.1.839690.3.579.2.727 1955 Unknown [id number] 2.16.840.1.356019.3.579.2.727 1955 Unknown [id number] 2.16.840.1.361460.3.579.2.727 1955 Unknown [id number] 2.16.840.1.880238.3.579.2.727 1955 Unknown [id number] 2.16.840.1.235440.3.579.2.727 1955 Unknown [id number] 2.16.840.1.860014.3.579.2.727 1955 Unknown [id number] 2.16.840.1.176457.3.579.2.727 1955 Unknown [id number] 2.16.840.1.948255.3.579.2.1244 1955 Unknown [id number] 2.16.840.1.270472.3.579.2.1244 1955 Unknown [id number] 2.16.840.1.952430.3.579.2.1244 1955 Unknown [id number] 2.16.840.1.004857.3.579.2.1244 1955 Unknown [id number] 2.16.840.1.213256.3.579.2.1259 1955 Unknown [id number] 2.16.840.1.935409.3.579.2.1259 1955 Unknown [id number] 2.16.840.1.260602.3.579.2.1258 1955 Unknown [id number] 2.16.840.1.287588.3.579.2.1259 1955 Unknown [id number] 2.16.840.1.510423.3.579.2.1259 1955 Unknown [id number] 2.16.840.1.006388.3.579.2.1259 1955 Unknown [id number] 2.16.840.1.966477.3.579.2.1259 1955 Unknown [id number] 2.16.840.1.028022.3.579.2.1259 1955 Unknown [id number] 2.16.840.1.105095.3.579.2.1259 1955 Unknown [id number] 2.16.840.1.856212.3.579.2.1259 1955 Unknown [id number] 2.16.840.1.477373.3.579.2.727 1955 Unknown [id number] 2.16.840.1.230435.3.579.2.727 1955 Unknown [id number] 2.16.840.1.225646.3.579.2. 1955 Unknown [id number] 2.16.840.1.571518.3.579.2. 1955 Unknown [id number] 2.16.840.1.256122.3.579.2. 1955 Unknown [id number] 2.16.840.1.749511.3.579.2. 1955 Unknown [id number] 2.16.840.1.645848.3.579.2. 1955 Unknown [id number] 2.16.840.1.300561.3.579.2. 1955 Unknown [id number] 2.16.840.1.021106.3.579.2. 1955 Unknown [id number] 2.16.840.1.911098.3.579.2 1955 Unknown [id number] 2.16.840.1.808704.3.579.2. 1955 Unknown [id number] 2.16.840.1.218176.3.579.2. 1955 Unknown [id number] 2.16.840.1.110108.3.579.2. 1955 Unknown [id number] 2.16.840.1.965460.3.579.2. 1955 Unknown [id number] 2.16.840.1.985547.3.579.2. 1955 Unknown [id number] 2.16.840.1.758451.3.579.2.72 1955 Unknown [id number] 2.16.840.1.523691.3.579.2.727 1955 Unknown [id number] 2.16.840.1.621600.3.579.2.727 Unknown HCAP/HFA/FAP Active [id number] Unknown [id number] 2.16.840.1.977308.3.579.2.531 Unknown [id number] 2.16.840.1.183842.3.579.2.531 Social History Date Type Detail Facility Start: 09-23-2023 End: 10-16-2024 Caffeine use Caffeine use -[facility] 250 DO Work Phone: Start: 08-27-2022 End: 03-22-2025 Tobacco smoking status Never smoked tobacco (finding) [facility] Comment on above: denies use. Tobacco smoking status Never [facility] Comment on above: denies use. Start: 09-23-2023 End: 10-16-2024 Sex Assigned At Male [facility] Start: 09-23-2023 End: 10-23-2023 Tobacco use and exposure Smokeless tobacco non-user [facility] Work Phone: Start: 09-23-2023 End: 09-22-2024 Alcohol intake Lifetime non-drinker (finding) [facility] Work Phone: Start: 1955 Sex Assigned At Not on file [facility] Work Phone: Start: 09-13-2023 End: 09-22-2024 Exposure to SARS-CoV-2 (event) Not sure [facility] Start: 02-04-2024 Tobacco smoking stat us GAIS Unknown if ever smoked [facility] Start: 1955 Sex Assigned At Male [facility] Start: 04-01-2024 End: 01-05-2025 Alcoholic beverage intake Defer [facility] Sexual Orientation [facility] [place] [facility] Start: 09-11-2018 Sex Male (finding) [facility] [place] [facility] Medical Equipment Procedure Code Equipment Code Equipment Origin al Text Equipment Identifier Dates 1 each by Other route if needed CL STENT DAVEY FRONTIER 2.25 X 22 FDA Start: 02-04-2024 CL STENT DAVEY FRONTIER 2.5 X 22 FDA Start: 02-04-2024 Goals Date Patient Goal Desired Activity /State 02-26-2024 Functional Status Date Assessment Result Facility 01-08-2024 Functional Status No [facility] 11-22-2023 Functional Status No [facility] 08-20-2023 Functional Status N/A [facility] 08-27-2022 Functional Status N/A [facility] Clinical Notes 08-27-2022 to 03-25-2025 Jose Whitney DPM - 01/05/2025 11:30 AM [facility]iro [facility]rell[facility] 10/16/2024 9:00 AM Hoang Antonio MD - 09/22/2024 9:40 AM EDTPatient InstructionsPatient Instructions Note Date & Type Note Facility 03-25-2025 Hospital Discharge instructions Patient Education 03/25/2025 11:14:53 Cancer Screening for Males Cancer Screening for Males A cancer screening is a test or exam that checks for cancer. Work with your health care provider to create a cancer screening schedule that protects your health. Who should have screening? All people who are male should be considered for screening of certain cancers, including colorectal cancer, prostate cancer, lung cancer, and skin cancer. Your health care provider may recommend screenings for other types of cancer if: You have had cancer before. You have a family member with cancer. You have genes that could increase the risk of cancer. You have risk factors for certain cancers, such as current or past use of tobacco products or being overweight. What are the benefits of screening? Cancer screening is done to look for cancer in the very early stages, before it spreads and becomes harder to treat and before you would start to notice symptoms. Finding cancer early improves the chances of successful treatment. It may save your life. When should I be screened for cancer? When you should be screened for cancer depends on: Your age. Your medical history and your family's medical history. Certain lifestyle factors, such as smoking or other use of tobacco products. Environmental exposure, such as to asbestos. How is screening done? Colorectal cancer Colorectal cancer screening looks for cancer or for growths called polyps that often form before cancer starts. Tests to look for cancer or polyps include: Colonoscopy or flexible sigmoidoscopy. For these procedures, a flexible tube with a small camera is inserted into the rectum. CT colonography. This test uses X-rays and a contrast dye to check the colon for polyps. Tests to look for cancer in the stool (feces) include: Guaiac-based fecal occult blood test (FOBT). This test can find blood in stool. It can be done at home with a kit. Fecal immunochemical test (FIT). This test can find blood in stool. For this test, you will need to collect stool samples at home. Stool DNA test. This test looks for blood in stool and any changes in DNA that can lead to colon cancer. For this test, you will need to collect a stool sample at home and send it to a lab. All adults should have screenings starting at 45 years old and continuing through 75 years old. For males 76 85 years old, the decision to be screened should be based on a person's preferences, life expectancy, overall health, and prior screening history. Your health care provider may recommend screening before 45 years old. You will have tests every 1 10 years, depending on your results and the type of screening test. People at increased risk should start screening at an earlier age. Talk with your health care provider about which screening test is right for you and how often you should be screened. Prostate cancer Prostate cancer screening is done with blood tests and a digital rectal exam. During this exam, a health care provider uses a gloved finger to check prostate size. You may need to be screened for prostate cancer if: You have risk factors for prostate cancer, such as being an person or having a close family member with prostate cancer. You have had gene changes or a genetic condition that was passed on to you from a parent (inherited). These gene changes or genetic conditions include BRCA1 or BRCA2 gene mutations or [place] syndrome. You have symptoms of prostate cancer, such as problems urinating or problems getting or keeping an erection (erectile dysfunction). When you have been screened for prostate cancer, future screening may be recommended based on the results of your blood tests. Prostate cancer screening for males with average risk may start at 50 years old. Males with risk factors may need to be screened earlier, at 40 45 years old. Talk with your health care provider about whether screening is right for you and, if so, how often you should be screened. Lung cancer Lung cancer screening is done with a CT scan that looks for abnormal changes in the lungs. Discuss lung cancer screening with your health care provider if you are 50 80 years old and if any of the following apply to you: You currently smoke. You used to smoke heavily. You have a smoking history of 1 pack of cigarettes a day for 20 years or 2 packs a day for 10 years. You may need to be screened every year if you smoke heavily or if you used to smoke. Skin cancer Skin cancer screening is done by checking the skin for unusual moles or spots and any changes in existing moles. Your health care provider should check your skin for signs of skin cancer at every physical exam. You should check your skin every month and tell your health care provider right away if anything looks unusual. Males with a [id number] risk for skin cancer may want to see a quill skinner (undercollar baster) for an annual body check. Where to find more information [place] Cancer Society: cancer.org Centers for Disease Control and Prevention: cdc.gov National Cancer [place]: cancer.gov Contact a health care provider if: You have concerns about any signs or symptoms of cancer. These may include: ?Skin problems. You may have: ?Moles of an unusual shape or color. ?Changes in existing moles. ?A sore on your skin that does not heal. ?Tiredness (fatigue) that does not go away. ?Losing weight without trying. ?Blood in your urine or stool. ?Problems with urination. You may have: ?Changes in urination habits. ?Painful urination. ?Painful ejaculation. ?Problems with coughing or breathing. These may include: ?Coughing or trouble breathing that does not go away. ?Coughing up blood. ?Frequent pain or cramping in your abdomen. This information is not intended to replace advice given to you by your health care provider. Make sure you discuss any questions you have with your health care provider. Document Revised: 06/18/2023 Document Reviewed: 12/31/2022 [employer] Patient Education 2023 [employer]. 03/25/2025 11:14:49 Overactive Bladder, Adult Overactive Bladder, Adult Overactive bladder is a condition in which a person has a sudden and frequent need to urinate. A person might also leak urine if he or she cannot get to the bathroom fast enough (urinary incontinence). Sometimes, symptoms can interfere with work or social activities. What are the causes? Overactive bladder is associated with poor nerve signals between your bladder and your brain. Your bladder may get the signal to empty before it is full. You may also have very sensitive muscles that make your bladder squeeze too soon. This condition may also be caused by other factors, such as: Medical conditions: ?Urinary tract infection. ?Infection of nearby tissues. ?Prostate enlargement. ?Bladder stones, inflammation, or tumors. ?Diabetes. ?Muscle or nerve weakness, especially from these conditions: ?A spinal cord injury. ?Stroke. ?Multiple sclerosis. ?Parkinson's disease. Other causes: ?Surgery on the uterus or urethra. ?Drinking too much caffeine or alcohol. ?Certain medicines, especially those that eliminate extra fluid in the body (diuretics). ?Constipation. What increases the risk? You may be at greater risk for overactive bladder if you: Are an older adult. Smoke. Are going through menopause. Have prostate problems. Have a neurological disease, such as stroke, dementia, Parkinson's disease, or multiple sclerosis (MS). Eat or drink alcohol, spicy food, caffeine, and other things that irritate the bladder. Are overweight or obese. What are the signs or symptoms? Symptoms of this condition include a sudden, strong urge to urinate. Other symptoms include: Leaking urine. Urinating 8 or more times a day. Waking up to urinate 2 or more times overnight. How is this diagnosed? This condition may be diagnosed based on: Your symptoms and medical history. A physical exam. Blood or urine tests to check for possible causes, such as infection. You may also need to see a health care provider who specializes in urinary tract problems. This is called a urologist. How is this treated? Treatment for overactive bladder depends on the cause of your condition and whether it is mild or severe. Treatment may include: Bladder training, such as: ?Learning to control the urge to urinate by following a schedule to urinate at regular intervals. ?Doing Kegel exercises to strengthen the pelvic floor muscles that support your bladder. Special devices, such as: ?Biofeedback. This uses sensors to help you become aware of your body's signals. ?Electrical stimulation. This uses electrodes placed inside the body (implanted) or outside the body. These electrodes send gentle pulses of electricity to strengthen the nerves or muscles that control the bladder. ?Women may use a plastic device, called a pessary, that fits into the vagina and supports the bladder. Medicines, such as: ?Antibiotics to treat bladder infection. ?Antispasmodics to stop the bladder from releasing urine at the wrong time. ?Tricyclic antidepressants to relax bladder muscles. ?Injections of botulinum toxin type A directly into the bladder tissue to relax bladder muscles. Surgery, such as: ?A device may be implanted to help manage the nerve signals that control urination. ?An electrode may be implanted to stimulate electrical signals in the bladder. ?A procedure may be done to change the shape of the bladder. This is done only in very severe cases. Follow these instructions at home: Eating and drinking Make diet or lifestyle changes recommended by your health care provider. These may include: ?Drinking fluids throughout the day and not only with meals. ?Cutting down on caffeine or alcohol. ?Eating a healthy and balanced diet to prevent constipation. This may include: ?Choosing foods that are high in fiber, such as beans, whole grains, and fresh fruits and vegetables. ?Limiting foods that are high in fat and processed sugars, such as fried and sweet foods. Lifestyle Lose weight if needed. Do not use any products that contain nicotine or tobacco. These include cigarettes, chewing tobacco, and vaping devices, such as e-cigarettes. If you need help quitting, ask your health care provider. General instructions Take mcqa-vva-bjfnpyv and prescription medicines only as told by your health care provider. If you were prescribed an antibiotic medicine, take it as told by your health care provider. Do not stop taking the antibiotic even if you start to feel better. Use any implants or pessary as told by your health care provider. If needed, wear pads to absorb urine leakage. Keep a log to track how much and when you drink, and when you need to urinate. This will help your health care provider monitor your condition. Keep all follow-up visits. This is important. Contact a health care provider if: You have a fever or chills. Your symptoms do not get better with treatment. Your pain and discomfort get worse. You have more frequent urges to urinate. Get help right away if: You are not able to control your bladder. Summary Overactive bladder refers to a condition in which a person has a sudden and frequent need to urinate. Several conditions may lead to an overactive bladder. Treatment for overactive bladder depends on the cause and severity of your condition. Making lifestyle changes, doing Kegel exercises, keeping a log, and taking medicines can help with this condition. This information is not intended to replace advice given to you by your health care provider. Make sure you discuss any questions you have with your health care provider. Document Revised: 02/27/2021 Document Reviewed: 02/27/2021 [employer] Patient Education 2023 [employer]. 03/25/2025 11:14:49 Benign Prostatic Hyperplasia Benign Prostatic Hyperplasia Benign prostatic hyperplasia (BPH) is an enlarged prostate gland that is caused by the normal aging process. The prostate may get bigger as a man gets older. The condition is not caused by cancer. The prostate is a walnut-sized gland that is involved in the production of semen. It is located in front of the rectum and below the bladder. The bladder stores urine. The urethra carries stored urine out of the body. An enlarged prostate can press on the urethra. This can make it harder to pass urine. The buildup of urine in the bladder can cause infection. Back pressure and infection may progress to bladder damage and kidney (renal) failure. What are the causes? This condition is part of the normal aging process. However, not all men develop problems from this condition. If the prostate enlarges away from the urethra, urine flow will not be blocked. If it enlarges toward the urethra and compresses it, there will be problems passing urine. What increases the risk? This condition is more likely to develop in men older than 50 years. What are the signs or symptoms? Symptoms of this condition include: Getting up often during the night to urinate. Needing to urinate frequently during the day. Difficulty starting urine flow. Decrease in size and strength of your urine stream. Leaking (dribbling) after urinating. Inability to pass urine. This needs immediate treatment. Inability to completely empty your bladder. Pain when you pass urine. This is more common if there is also an infection. Urinary tract infection (UTI). How is this diagnosed? This condition is diagnosed based on your medical history, a physical exam, and your symptoms. Tests will also be done, such as: A post-void bladder scan. This measures any amount of urine that may remain in your bladder after you finish urinating. A digital rectal exam. In a rectal exam, your health care provider checks your prostate by putting a lubricated, gloved finger into your rectum to feel the back of your prostate gland. This exam detects the size of your gland and any abnormal lumps or growths. An exam of your urine (urinalysis). A prostate specific antigen (PSA) screening. This is a blood test used to screen for prostate cancer. An ultrasound. This test uses sound waves to electronically produce a picture of your prostate gland. Your health care provider may refer you to a specialist in kidney and prostate diseases (urologist). How is this treated? Once symptoms begin, your health care provider will monitor your condition (active surveillance or watchful waiting). Treatment for this condition will depend on the severity of your condition. Treatment may include: Observation and yearly exams. This may be the only treatment needed if your condition and symptoms are mild. Medicines to relieve your symptoms, including: ?Medicines to shrink the prostate. ?Medicines to relax the muscle of the prostate. Surgery in severe cases. Surgery may include: ?Prostatectomy. In this procedure, the prostate tissue is removed completely through an open incision or with a laparoscope or robotics. ?Transurethral resection of the prostate (TURP). In this procedure, a tool is inserted through the opening at the tip of the penis (urethra). It is used to cut away tissue of the inner core of the prostate. The pieces are removed through the same opening of the penis. This removes the blockage. ?Transurethral incision (TUIP). In this procedure, small cuts are made in the prostate. This lessens the prostate's pressure on the urethra. ?Transurethral microwave thermotherapy (TUMT). This procedure uses microwaves to create heat. The heat destroys and removes a small amount of prostate tissue. ?Transurethral needle ablation (TUNA). This procedure uses radio frequencies to destroy and remove a small amount of prostate tissue. ?Interstitial laser coagulation (ILC). This procedure uses a laser to destroy and remove a small amount of prostate tissue. ?Transurethral electrovaporization (TUVP). This procedure uses electrodes to destroy and remove a small amount of prostate tissue. ?Prostatic urethral lift. This procedure inserts an implant to push the lobes of the prostate away from the urethra. Follow these instructions at home: Take kyzl-opm-qgorzzt and prescription medicines only as told by your health care provider. Monitor your symptoms for any changes. Contact your health care provider with any changes. Avoid drinking large amounts of liquid before going to bed or out in public. Avoid or reduce how much caffeine or alcohol you drink. Give yourself time when you urinate. Keep all follow-up visits. This is important. Contact a health care provider if: You have unexplained back pain. Your symptoms do not get better with treatment. You develop side effects from the medicine you are taking. Your urine becomes very dark or has a bad smell. Your lower abdomen becomes distended and you have trouble passing urine. Get help right away if: You have a fever or chills. You suddenly cannot urinate. You feel light-headed or very dizzy, or you faint. There are large amounts of blood or clots in your urine. Your urinary problems become hard to manage. You develop moderate to severe low back or flank pain. The flank is the side of your body between the ribs and the hip. These symptoms may be an emergency. Get help right away. Call 911. Do not wait to see if the symptoms will go away. Do not drive yourself to the hospital. Summary Benign prostatic hyperplasia (BPH) is an enlarged prostate that is caused by the normal aging process. It is not caused by cancer. An enlarged prostate can press on the urethra. This can make it hard to pass urine. This condition is more likely to develop in men older than 50 years. Get help right away if you suddenly cannot urinate. This information is not intended to replace advice given to you by your health care provider. Make sure you discuss any questions you have with your health care provider. Document Revised: 12/27/2021 Document Reviewed: 12/27/2021 [employer] Patient Education 2023 [employer]. Follow Up Care 09/11/2024 12:56:10 With:WILLIAM Christiansen APRN, MAXI Shaver, URL Address: When: Unknown Comments:6 mos psa [facility] 03-25-2025 Note Patient Education Obstetrics and Gynecology Overactive Bladder, Adult Overactive bladder is a condition in which a person has a sudden and frequent need to urinate. A person might also leak urine if he or she cannot get to the bathroom fast enough (urinary incontinence). Sometimes, symptoms can interfere with work or social activities. What are the causes? Overactive bladder is associated with poor nerve signals between your bladder and your brain. Your bladder may get the signal to empty before it is full. You may also have very sensitive muscles that make your bladder squeeze too soon. This condition may also be caused by other factors, such as: ??? Medical conditions: ? Urinary tract infection. ? Infection of nearby tissues. ? Prostate enlargement. ? Bladder stones, inflammation, or tumors. ? Diabetes. ? Muscle or nerve weakness, especially from these conditions: ? A spinal cord injury. ? Stroke. ? Multiple sclerosis. ? Parkinson's disease. ??? Other causes: ? Surgery on the uterus or urethra. ? Drinking too much caffeine or alcohol. ? Certain medicines, especially those that eliminate extra fluid in the body (diuretics). ? Constipation. What increases the risk? You may be at greater risk for overactive bladder if you: ??? Are an older adult. ??? Smoke. ??? Are going through menopause. ??? Have prostate problems. ??? Have a neurological disease, such as stroke, dementia, Parkinson's disease, or multiple sclerosis (MS). ??? Eat or drink alcohol, spicy food, caffeine, and other things that irritate the bladder. ??? Are overweight or obese. What are the signs or symptoms? Symptoms of this condition include a sudden, strong urge to urinate. Other symptoms include: ??? Leaking urine. ??? Urinating 8 or more times a day. ??? Waking up to urinate 2 or more times overnight. How is this diagnosed? This condition may be diagnosed based on: ??? Your symptoms and medical history. ??? A physical exam. ??? Blood or urine tests to check for possible causes, such as infection. You may also need to see a health care provider who specializes in urinary tract problems. This is called a urologist. How is this treated? Treatment for overactive bladder depends on the cause of your condition and whether it is mild or severe. Treatment may include: ??? Bladder training, such as: ? Learning to control the urge to urinate by following a schedule to urinate at regular intervals. ? Doing Kegel exercises to strengthen the pelvic floor muscles that support your bladder. ??? Special devices, such as: ? Biofeedback. This uses sensors to help you become aware of your body's signals. ? Electrical stimulation. This uses electrodes placed inside the body (implanted) or outside the body. These electrodes send gentle pulses of electricity to strengthen the nerves or muscles that control the bladder. ? Women may use a plastic device, called a pessary, that fits into the vagina and supports the bladder. ??? Medicines, such as: ? Antibiotics to treat bladder infection. ? Antispasmodics to stop the bladder from releasing urine at the wrong time. ? Tricyclic antidepressants to relax bladder muscles. ? Injections of botulinum toxin type A directly into the bladder tissue to relax bladder muscles. ??? Surgery, such as: ? A device may be implanted to help manage the nerve signals that control urination. ? An electrode may be implanted to stimulate electrical signals in the bladder. ? A procedure may be done to change the shape of the bladder. This is done only in very severe cases. Follow these instructions at home: Eating and drinking ??? Make diet or lifestyle changes recommended by your health care provider. These may include: ? Drinking fluids throughout the day and not only with meals. ? Cutting down on caffeine or alcohol. ? Eating a healthy and balanced diet to prevent constipation. This may include: ? Choosing foods that are high in fiber, such as beans, whole grains, and fresh fruits and vegetables. ? Limiting foods that are high in fat and processed sugars, such as fried and sweet foods. Lifestyle ??? Lose weight if needed. ??? Do not use any products that contain nicotine or tobacco. These include cigarettes, chewing tobacco, and vaping devices, such as e-cigarettes. If you need help quitting, ask your health care provider. General instructions ??? Take rakz-kle-ijltszw and prescription medicines only as told by your health care provider. ??? If you were prescribed an antibiotic medicine, take it as told by your health care provider. Do not stop taking the antibiotic even if you start to feel better. ??? Use any implants or pessary as told by your health care provider. ??? If needed, wear pads to absorb urine leakage. ??? Keep a log to track how much and when you drink, and whe (more content not included)... [facility] 01-05-2025 History of Present illness Narrative Patient: Huang Robles : 1955 PCP: Avi Lopez MD SUBJECTIVE This is a 69 y.o. male that presents today with a CC of elongated, thick nails. Pt states nails have been elongated and thick for many years and cause pain with ambulation in shoegear. Pt has tried previous treatment with minimal relief. Pt presents today for nail care and treatment. Patient is DM2 with history of peripheral neuropathy Pt also presents today for secondary complaint of swelling to b/l ankle regions and feet. They state that condition is starting to worsten have tried no treatments for the condition. States swelling worstens with prolonged standing activities. Allergies: No Known Allergies Past Medical History: Past Medical History: Diagnosis Date Diabetes mellitus (HCC) Hypertension Medications: Current Outpatient Medications: albuterol HFA 90 mcg/act inhaler, Inhale 1 puff every 6 (six) hours if needed for wheezing or shortness of breath, Disp: , Rfl: apixaban (Eliquis) 5 MG tablet, Take 5 mg by mouth in the morning and 5 mg before bedtime., Disp: , Rfl: Ascorbic Acid (vitamin C) 1000 MG tablet, Take 1,000 mg by mouth 1 (one) time each day at the same time, Disp: , Rfl: atorvastatin (Lipitor) 80 MG tablet, Take 80 mg by mouth at bedtime, Disp: , Rfl: bumetanide (Bumex) 1 MG tablet, Take 1 mg by mouth Daily, Disp: , Rfl: clopidogrel (Plavix) 75 MG tablet, Take 75 mg by mouth Daily, Disp: , Rfl: dapagliflozin (Farxiga) 10 MG, Take 10 mg by mouth Daily, Disp: , Rfl: glucose blood (True Metrix Blood Glucose Test) test strip, 1 each by Other route if needed, Disp: , Rfl: LORazepam (Ativan) 1 MG tablet, Take 1 tablet (1 mg) by mouth 1 time for 1 dose (Patient not taking: Reported on 06/02/2024), Disp: 1 tablet, Rfl: 0 magnesium oxide 500 MG tablet, Take 500 mg by mouth in the morning., Disp: , Rfl: metFORMIN (Glucophage) 500 MG tablet, Take 500 mg by mouth in the morning and 500 mg in the evening. Take with meals., Disp: , Rfl: metoprolol tartrate (Lopressor) 25 MG tablet, Take 25 mg by mouth in the morning and 25 mg before bedtime., Disp: , Rfl: nitroglycerin (Nitrostat) 0.4 MG SL tablet, Place 0.4 mg under the tongue every 5 (five) minutes if needed for chest pain, Disp: , Rfl: potassium chloride ER (Micro-K) 10 MEQ ER capsule, Take 10 mEq by mouth in the morning and 10 mEq before bedtime. Do not crush or chew.., Disp: , Rfl: sennosides (Senokot) 8.6 MG tablet, Take 1 tablet by mouth in the morning and 1 tablet before bedtime. (Patient not taking: Reported on 06/02/2024), Disp: , Rfl: spironolactone (Aldactone) 25 MG tablet, Take 25 mg by mouth Daily, Disp: , Rfl: tolterodine LA (Detrol LA) 4 MG 24 hr capsule, Take 4 mg by mouth Daily Do not crush, chew, or split., Disp: , Rfl: torsemide (Demadex) 20 MG tablet, Take 10 mg by mouth Daily (Patient not taking: Reported on 06/02/2024), Disp: , Rfl: valsartan (Diovan) 40 MG tablet, Take 40 mg by mouth Daily, Disp: , Rfl: Social History: Social History Socioeconomic History Marital status: Unmarried Spouse name: Not on file Number of children: Not on file Years of education: Not on file Highest education level: Not on file Occupational History Not on file Tobacco Use Smoking status: Never Smokeless tobacco: Never Vaping Use Vaping status: Never Used Substance and Sexual Activity Alcohol use: Defer Drug use: Defer Sexual activity: Defer Other Topics Concern Not on file Social History Narrative Not on file Social Drivers of Health Financial Resource Strain: Low Risk (01/12/2024) Received from [facility] Overall Financial Resource Strain (CARDIA) Difficulty of Paying Living Expenses: Not hard at all Food Insecurity: No Food Insecurity (01/12/2024) Received from [facility] Hunger Vital Sign Within the past 12 months, you worried that your food would run out before you got the money to buy more.: Never true Ran Out of Food in the Last Year: Not on file Transportation Needs: No Transportation Needs (01/12/2024) Received from [facility] Transportation In the past 12 months, has lack of transportation kept you from medical appointments or from getting medications?: No Lack of Transportation (Non-Medical): Not on file Physical Activity: Not on file Stress: Not on file Social Connections: Not on file Intimate Partner Violence: Unknown (01/12/2024) Received from [facility] Humiliation, Afraid, Rape, and Kick questionnaire Fear of Current or Ex-Partner: No Emotionally Abused: Not on file Physically Abused: Not on file Sexually Abused: Not on file Housing Stability: Low Risk (01/12/2024) Received from [facility] Housing Stability Vital Sign Unable to Pay for Housing in the Last Year: Not on file Number of Places Lived in the Last Year: Not on file In the last 12 months, was there a time when you did not have a steady place to sleep or slept in a usp (including now)?: No ROS: General: denies fever, chills, fatigue, malaise OBJECTIVE LE EXAM: DERM: Elongated thick yellow crumbly nails digits 1 through 10. Negative hair growth with thin shiny atrophic skin bilaterally. +1 pitting edema to bilateral ankles VASC: Negative DP and negative PT pedal pulses NEURO: 5.07 [place] Iris monofilament test diminished to digits and forefoot bilaterally 125Hz tuning fork diminished to 1st MPJ bilaterally ORTHO: Positive pain on palpation to toenails of the left 1,2,3,4,5 toes and right 1,2,3,4,5 toes ASSESSMENT 1. Type 2 diabetes mellitus without complication, without long-term current use of insulin (HCC) 2. Venous insufficiency of both lower extremities 3. Pain due to onychomycosis of toenails of both feet PLAN Discussed proper foot care with patient today. Debride nails in length and thickness digits 1 through 10 Patient educated today on proper diabetic foot care including monitoring feet daily for any signs of infection openings in the skin or irregularities to both feet. Patient had a diabetic neurological exam today to both their feet and discussed proper shoe gear. Visit spent with patient education on condition and treatment of condition. Pt to continue with elevation of feet while resting or NWB. Discussed compression hose and the use of stockings for edema. Discussed condition in detail. Recommendation for rukj-tgk-[id number] compression stockings at this time and patient may consider wearing compression hose more frequently as he does have these Jose Whitney DPM documented in this encounter [facility] 10-16-2024 History of Present illness Narrative Images from the original note were not included. patient: Huang Robles : 1955 PCP: Avi Lopez MD SUBJECTIVE This is a 69 y.o. male diabetic patient presents today chief complaint of painful elongated nails digits 1 through 10 the cause marked limitation in ambulation due to pain and pressure from shoe gear. The patient states he has been attempting to control his blood glucose levels with regular visits to his primary care physician. Allergies: No Known Allergies Past Medical History: Active Ambulatory Problems Diagnosis Date Noted Permanent atrial fibrillation ([facility]/HCC) 10/03/2023 Class 3 severe obesity due to excess calories with serious comorbidity and body mass index (BMI) of 45.0 to 49.9 in adult 10/03/2023 Primary hypertension (CMS/HCC) 10/03/2023 MIKAYLA (obstructive sleep apnea) 10/03/2023 Pedal edema 10/03/2023 Venous insufficiency of both lower extremities 10/03/2023 Type 2 diabetes mellitus without complication, without long-term current use of insulin 10/03/2023 Onychomycosis 10/03/2023 Macular degeneration 10/03/2023 Developmental disability 10/15/2023 Resolved Ambulatory Problems Diagnosis Date Noted No Resolved Ambulatory Problems Past Medical History: Diagnosis Date Diabetes mellitus (CMS/HCC) Hypertension (CMS/[facility]) Medications: Current Outpatient Medications: albuterol HFA 90 mcg/act inhaler, Inhale 1 puff every 6 (six) hours if needed for wheezing or shortness of breath, Disp: , Rfl: apixaban (Eliquis) 5 MG tablet, Take 5 mg by mouth in the morning and 5 mg before bedtime., Disp: , Rfl: Ascorbic Acid (vitamin C) 1000 MG tablet, Take 1,000 mg by mouth 1 (one) time each day at the same time, Disp: , Rfl: atorvastatin (Lipitor) 80 MG tablet, Take 80 mg by mouth at bedtime, Disp: , Rfl: bumetanide (Bumex) 1 MG tablet, Take 1 mg by mouth Daily, Disp: , Rfl: clopidogrel (Plavix) 75 MG tablet, Take 75 mg by mouth Daily, Disp: , Rfl: dapagliflozin (Farxiga) 10 MG, Take 10 mg by mouth Daily, Disp: , Rfl: glucose blood (True Metrix Blood Glucose Test) test strip, 1 each by Other route if needed, Disp: , Rfl: LORazepam (Ativan) 1 MG tablet, Take 1 tablet (1 mg) by mouth 1 time for 1 dose (Patient not taking: Reported on 06/02/2024), Disp: 1 tablet, Rfl: 0 magnesium oxide 500 MG tablet, Take 500 mg by mouth in the morning., Disp: , Rfl: metFORMIN (Glucophage) 500 MG tablet, Take 500 mg by mouth in the morning and 500 mg in the evening. Take with meals., Disp: , Rfl: metoprolol tartrate (Lopressor) 25 MG tablet, Take 25 mg by mouth in the morning and 25 mg before bedtime., Disp: , Rfl: nitroglycerin (Nitrostat) 0.4 MG SL tablet, Place 0.4 mg under the tongue every 5 (five) minutes if needed for chest pain, Disp: , Rfl: potassium chloride ER (Micro-K) 10 MEQ ER capsule, Take 10 mEq by mouth in the morning and 10 mEq before bedtime. Do not crush or chew.., Disp: , Rfl: sennosides (Senokot) 8.6 MG tablet, Take 1 tablet by mouth in the morning and 1 tablet before bedtime. (Patient not taking: Reported on 06/02/2024), Disp: , Rfl: spironolactone (Aldactone) 25 MG tablet, Take 25 mg by mouth Daily, Disp: , Rfl: tolterodine LA (Detrol LA) 4 MG 24 hr capsule, Take 4 mg by mouth Daily Do not crush, chew, or split., Disp: , Rfl: torsemide (Demadex) 20 MG tablet, Take 10 mg by mouth Daily (Patient not taking: Reported on 06/02/2024), Disp: , Rfl: valsartan (Diovan) 40 MG tablet, Take 40 mg by mouth Daily, Disp: , Rfl: Review of systems: Constitutional: Denies fever, chills, nausea, vomiting GI: Denies abdominal pain, cramping, loose stool, gastric ulcers Musculoskeletal: Denies low back pain, knee pain, systemic arthritis Neurologic: Denies burning, tingling, transient paralysis OBJECTIVE Physical Examination: DERM: Positive hair growth to b/l feet with good skin turgor noted. Negative openings in skin. No macerations noted interdigitally. Web spaces were clean and dry. No ulcerations were noted. Nails 1 through 10 were thickened elongated yellow and crumbly with subungual debris. They were painful to palpation [id number] on the right [id number] on the left. VASC: DP /PT were nonpalpable bilateral. Capillary refill time < 3 seconds Digits 1-5 bilateral NEURO: [place] Iris 5.07 monofilament was diminished B/L. Vibratory sensation was diminished b/l. Mild peripheral neuropathy noted in a stocking-glove orientation Musculoskeletal: Muscle strength was +5 over 5 all intrinsic and extrinsic muscles tested. Radiographs: AP/MO/LAT: Diagnostic ultrasound: ASSESSMENT 1. Type 2 diabetes mellitus without complication, without long-term current use of insulin 2. Onychomycosis 3. Pain in right toe(s) 4. Pain in left toe(s) PLAN The patient was educated on proper diabetic foot care. There educated on the etiology of onychomycosis. Also educated on performing regular inspections of the feet. We discussed routine visits to her primary care physician to monitor the glucose levels as well. Today the nails were debrided both in length and thickness 1 through 10. Patient was educated on the increased risk for foot complications due to neuropathy, poor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 with and without contrast Vitamin B12 and thyroid stimulating hormone Neuropsych testing We will see the patient back thereafter and evaluate the information and determine proper treatment course Pt has been fully educated on their diagnosis, lab results, treatment options, follow up plan, return instructions, and discussion of mental health issues documented in this encounter [facility] 02-04-2024 Discharge summary Note Date/Time February 04, 2024 9:59am [facility] [address] [place] [address] Discharge Summary Signed Patient: Huang Robles MR#: [id number] : 1955 Acct:[id number] Age/Sex: 68 / M Adm Date: 4 Loc: Room: Attending Dr: Kyleigh Maciel DO Copies to: NON STAFF Kyleigh Maciel DO~ Providers Date of Discharge: 02/04/24 Discharging Provider: Kyleigh Maciel Primary Care Provider: NON STAFF Discharge Diagnosis (1) ASHD (arteriosclerotic heart disease): (2) Hx of heart artery stent: (3) Hypertension: (4) Hyperlipidemia: (5) A-fib: Final Diagnosis Final Discharge Diagnosis: 1. Widely patent stent the proximal LAD 2. Residual severe distal LAD and obtuse marginal branch disease 3. Low normal LV function 4. Successful PCI's OM branch and distal LAD x 2 BENEDICTO Summary Hospital Course Hospital course: 68-year-old gentleman referred by general cardiology for coronary reassessment following recent ACS with revascularization of the proximal LAD in [place]; with persistent class III exertional dyspnea (anginal equivalent). Is noted to have residual disease in the OM branch at time of catheterization in [place], this wastreated conservatively Comorbidities are noted for hypertension, hyperlipidemia, atrial fibrillation Repeat cardiac catheterization revealed severe distal LAD disease and mid obtusemarginal branch disease and underwent stenting of the OM branch with 2.5 x 22 mmOnyx in the distal LAD with 2.25 x 22 mm Davey without complications Will continue antiplatelet therapy and DOAC therapy (A-fib) and follow-up with cardiology within the next 1 to 2 weeks Condition Condition at Discharge: Stable Status at Discharge Functional status at discharge: independent ambulation Overall status at discharge: patient is back to baseline Time Spent with Patient Time spent providing/coordinating discharge services (# min): 15 Surgeries and Procedures Operation Date: 02/04/24 09:15 IRINA Maciel?left heart catheterization IRINA Maciel?first vessel PCI IRINA Maciel second vessel PCI Complications Complications: None Discharge Plan Discharge Plan Patient Disposition: Home Diet: Low-Cholesterol Additional Instructions: DISCHARGE INSTRUCTIONS FOR ANGIOPLASTY/CORONARY/PERIPHERAL/STENT IMPLANT FOR ADULT ANTICOAGULATION -Since the greatest risk of a blood clot forming with the stent occurs in the first 2-3 weeks after implantation, you will need to take 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s for at least [?insert date or amount of time?]. ANTICOAGULATION MEDICATION [INSERT MEDICATION NAME: Aspirin 81mg once a day, Aspirin 325mg once a day, Clopidogrel (Plavix) 75mg one tablet, Prasugrel (Effient) 10mg once a day once a day, Ticagrelor (Brilinta) 90mg twice a day] STATIN MEDICATION [INSERT MEDICATION NAME: atorvastatin (Lipitor) 80 mg or rosuvastatin (Crestor) 40mg] [Bare Metal Stent (BMS) duration ] [Drug-Eluting Stent (BENEDICTO) duration] DO NOT discontinue Plavix/Effient/Brilinta/Aspirin during the first few months regardless of what you are advised by your family doctor or pharmacist, without first calling the access liaison who implanted the stent. If you require pain relief during this time, please take only ACETAMINOPHEN (TYLENOL)- NO additional aspirin or ibuprofen. DISCHARGE ACTIVITIES ARE FOLLOWS: First week after discharge: -Take it easy at home, no strenuous activity. -Do not lift or pull objects over 10-15 pounds, including children, and groceries for four weeks. If puncture site is at wrist do NOT lift more than three pounds for three days. - May walk up stairs. -May shower. -No excessive scrubbing of the affected site (groin). -May ride in car. -May resume sexual intercourse after 1-2 weeks. -No MRI for 12 days. -May drive in 4-7 days. -If puncture site is at the wrist do not manipulate the wrist for 24 hours, and no soaking wrist for three days. Second Week: -May take a bath -May start walking 3 times a week for 15-20 minutes at a leisurely pace. You should be able to carry on a conversation comfortably without feeling winded. -No strenuous activity as in jogging, running, weight lifting, stair steppers, etc. until the access liaison approves these activities. Check with the access liaison on your first follow-up visit. CALL YOUR BARK FITTER: -If bleeding should occur from the catheter insertion site- apply pressure to the site then immediately call us. -Report any fever, redness, drainage, increased swelling, or firmness at the catheter insertion site. Some bruising or slight swelling may be present at thetime of discharge. -Should arm or leg become cold, numb, white, or blue, contact the access liaison immediately. -IF you should experience episodes of angina, e.g. chest discomfort, heaviness, tightness, pressure burning with or without radiation to the neck, jaw, arms or back- use 1 Nitrostat tablet under your tongue every 5-10 minutes and up to three tablets. IF NO RELIEF, CALL 911 or GO TO THE NEAREST EMERGENCY ROOM. -Please notify our office if you have recurrent angina. -Cardiac Rehab Education Provided. Participation in the Cardiopulmonary Rehabilitation program is recommended. The attending access liaison or a nurse clinician should provide you with specificinstructions regarding activity, diet, medications, and further follow up for you. Follow the medication instructions provided on your discharge. If the dosages and instructions on this sheet differ from the dosage and instructions on the bottle, follow the instructions on the bottle. [facility] is not responsible for incorrect prescription information provided by thepatient during their visit. Do not stop your medications without consulting your health care provider. Please take the list with you to your next doctor's appointment. Instructions: Know your Meds Prescriptions: No Action atorvastatin 80 mg tablet 80 mg PO HS tolterodine 4 mg capsule,extended release 24hr 4 mg PO DAILY potassium chloride 10 mEq tablet extended release 10 meq PO BID clopidogrel 75 mg tablet 75 mg PO DAILY spironolactone 25 mg tablet 25 mg PO DAILY nitroglycerin 0.4 mg tablet, sublingual 0.4 mg sublingual Q5M PRN (Reason: chest pain) aspirin 81 mg tablet,chewable 1 tab PO DAILY bumetanide 1 mg tablet 1 mg PO DAILY metoprolol succinate 25 mg tablet extended release 24 hr 25 mg PO DAILY albuterol sulfate 90 mcg/actuation HFA aerosol inhaler 1 inh INHALATION DAILY metformin 500 mg tablet extended release 24 hr 500 mg PO DAILY valsartan 40 mg tablet 40 mg PO DAILY Eliquis 5 mg tablet 5 mg PO BID dapagliflozin propanediol [Farxiga] 10 mg tablet 10 mg PO DAILY fluticasone propion-salmeterol [Advair HFA] 115-21 mcg/actuation HFA aerosol inhaler 2 inh inhalation BID magnesium oxide 500 mg magnesium tablet 500 mg PO DAILY PreserVision AREDS-2 250-90-40-1 mg capsule 1 tab PO BID Follow Up: Kylegih Maciel DO [Active Staff - D.O.] - Exam Physical Exam Vital Signs: Temp Pulse Resp BP Pulse Ox O2 Del Method 97.0 F L 65 16 111/73 97 Room Air 02/04/24 07:50 02/04/24 07:50 02/04/24 07:50 02/04/24 07:50 02/04/24 07:50 02/04/24 07:50 Diagnostic Studies Completed and Pending Studies Pending studies at discharge: 02/04/24 07:50 ECG 12 lead ECG Stat 02/04/24 09:50 CPR cardiac rehab ed Routine ECG 12 lead ECG Stat 02/05/24 05:00 ECG 12 lead ECG IN AM Troponin I High Sensitivity [CHEM] IN AM 02/05/24 09:00 Complete Blood Count Auto Diff Timed Labs on day of discharge: 02/04/24 08:20: Corrected WBC 7.2, Uncorrected WBC Count 7.2, RBC 3.99, Hgb 12.8 L, Hct 37.2 L, MCV 93.2, MCH 32.0, MCHC 34.4, RDW 14.4, Plt Count 240, MPV 7.8, Neut % (Auto) 72.8, Lymph % (Auto) 16.1, [place] % (Auto) 8.4, Eos % (Auto) 1.8, Baso % (Auto) 0.9, Nucleat RBC Rel Count 0.1, Neut # (Auto) 5.3, Lymph # (Auto) 1.2, [place] # (Auto) 0.6, Eos # (Auto) 0.1, Baso # (Auto) 0.1, PT 15.0 H, INR 1.3, APTT 31.9, PHA Creatinine Clear 107.26, Sodium 133 L, Potassium 3.7, Chloride 100, Carbon Dioxide 23.2, Anion Gap 13.5, BUN 19, Creatinine 0.86, Est GFR (CKD-EPI) > 60.0, Triglycerides 55, Cholesterol 54 L, LDL Cholesterol, Calc 16, VLDL Cholesterol 11, HDL Cholesterol 27, Cholesterol/HDL Ratio 2.0 Documented By: Kyleigh Maciel DO 02/04/24 0955 Signed By: <Electronically signed by Kyleigh Maciel DO> 02/04/24 0959 [facility] Work Phone: [phone]) 103-567308-13-2024 [facility] Note Pt admitted to hospital for NSTEMI; hx of PAF, PVCs, DM II, HTN, MIKAYLA, depression, asthma, GERD. Pt's echo from 01/13/24 estimated LVEF 45%, which does not qualify pt for cardiac rehab (CR) therapy with HF diagnosis per CMS eligibility criteria. Pt is eligible with NSTEMI and/or stent referral. I will watch for updates and follow up with pt, if appropriate. ZACHARY StevensonN water maintenance supervisor Outpatient Coordinator [facility] Note Occupational Therapy Occupational Therapy Evaluation Patient Name: Huang Robles : 1955 Today's Date: 01/15/2024 Huang Robles is an 68 y.o. male who came from [facility] as a transfer with chest pain. NSTEMI, s/p cardiac cath, 1) successful PCI proximal LAD from 99 to 10% with a single drug eluting Synergy stent. General Subjective: friendly and cooperative, reports generalized weakness and fatigue but feeling better Patient Active Problem List Diagnosis NSTEMI (non-ST elevated myocardial infarction) (CMS/HCC) Abdominal pain Pain in left hip Presence of left artificial hip joint Aftercare following joint replacement surgery Anemia in other chronic diseases classified elsewhere Asthma Other asthma BPH with urinary obstruction Choledocholithiasis Chronic GERD Class 3 severe obesity due to excess calories with serious comorbidity and body mass index (BMI) of 45.0 to 49.9 in adult (CMS/HCC) Morbid obesity (CMS/HCC) Constipation Depression Developmental disability Diabetes mellitus (CMS/HCC) Difficulty in walking, not elsewhere classified Dyspnea Shortness of breath Edema Anticoagulated Fluid retention Establishing care with new doctor, encounter for Excessive sweating Family history of prostate cancer Fibromyalgia Lightheadedness 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 Macular degeneration Major depressive disorder, recurrent, unspecified (CMS/HCC) Muscle weakness (generalized) Nocturia BMI 45.0-49.9, adult (CMS/HCC) Obesity, Class III, BMI 40-49.9 (morbid obesity) (CMS/HCC) Onychomycosis MIKAYLA (obstructive sleep apnea) Osteoarthritis Primary generalized (osteo)arthritis Pain in left knee Paroxysmal atrial fibrillation (CMS/HCC) Permanent atrial fibrillation (CMS/HCC) Pedal edema Primary hypertension Type 2 diabetes mellitus without complications (CMS/HCC) Unspecified abnormalities of gait and mobility Unspecified atrial flutter (CMS/HCC) Urge incontinence Urinary urgency Venous insufficiency of both lower extremities Ventricular premature beats Chronic ischemic heart disease, unspecified Past Medical History: Diagnosis Date Anemia in other chronic diseases classified elsewhere 02/25/2015 Asthma 09/05/2023 BPH with urinary obstruction 01/12/2024 Choledocholithiasis 01/12/2024 Chronic GERD 01/12/2024 Chronic ischemic heart disease, unspecified 02/25/2015 Class 3 severe obesity due to excess calories with serious comorbidity and body mass index (BMI) of 45.0 to 49.9 in adult ([facility]) 10/03/2023 Constipation 01/12/2024 Depression 01/12/2024 Developmental disability 10/15/2023 Fibromyalgia 05/15/2015 Macular degeneration 10/03/2023 Onychomycosis 10/03/2023 MIKAYLA (obstructive sleep apnea) 10/03/2023 Osteoarthritis 01/12/2024 rght knee Paroxysmal atrial fibrillation ([facility]) 06/10/2015 Primary hypertension 02/25/2015 Last Assessment & Plan: Optimal in office Type 2 diabetes mellitus without complications ([facility]) 02/25/2015 Venous insufficiency of both lower extremities 10/03/2023 Past Surgical History: Procedure Laterality Date HIP SURGERY Left Precautions Precautions Medical Precautions: fall risk Pain Pain Assessment Pain Score: 0 - No pain Cognition Cognition Overall Cognitive Status: Within Functional Limits General Assessment General Assessment Hearing: (wfl) Hand Dominance: Left Home Living Home Living Type of Home: House Lives With: Alone Home Adaptive Equipment: Rollator, Cane, Sock aid, Roundhouse Worker, Lift Chair (sc, gb, [facility]) Home Layout: One level Home Access: Ramped entrance Bathroom Shower/Tub: Walk-in shower Prior Level of Function Prior Function Level of [place]: Independent with ADLs and functional transfers, Independent with homemaking with ambulation (drives) Receives Help From: Family (sister completes yard work) Prior IADLs IADL History Homemaking Responsibilities: Yes Dynamic Sitting Balance Dynamic Sitting Balance Dynamic Sitting Balance-Level of Assistance: Independent Static Standing Balance Static Standing Balance Static Standing-Level of Assistance: Close supervision (rw) ADL ADL LE Dressing Assistance: Stand by Transfers Transfers Transfer: (in chair upon arrival, SBA with RW: sit to stand 30 feet and sit into chair) Objective General Assessments Activity Tolerance Endurance: Stage II Vision - Basic Assessment Current Vision: No visual deficits Sensation Light Touch: No apparent deficits Coordination Movements are Fluid and Coordinated: Yes Extremity Assessments RUE Assessment RUE Assessment: Within Functional Limits LUE Assessment LUE Assessment: Within Functional Limits Outcome Assessments AM-PAC 6 Clicks Putting on and taking off regular lower body clothing?: A Little (Min Assist (more content not included)...[facility] 01-15-2024 NoteHospital Medicine Discharge Summary Final Discharge Diagnosis: # NSTEMI, s/p cardiac cath, Continue medical management follow-up with cardiology for further intervention as an outpatient, 1) successful PCI proximal LAD from 99 to 10% with a single drug eluting Synergy stent. 2) There is a significant (80-90%) stenosis of the inferior branch of the obtuse marginal artery which was not treated. #Paroxysmal atrial fibrillation in sinus rhythm, continue Eliquis, #Acute on chronic systolic congestive heart failure NYHA class III at baseline, clinically compensated, #Essential hypertension #Class II obesity #Diabetes mellitus 2, #Obstructive sleep apnea #Major recurrent depression in remission #GERD without esophagitis #Benign prostatic hyperplasia asymptomatic #Mild intermittent asthma stable The venous ulcer/s are a current diagnosis for this admission Admission Diagnosis: NSTEMI (non-ST elevated myocardial infarction) ([facility]) [I21.4] Hospital course: 68 y.o. male who came from [facility] as a transfer with chest pain. the patient's chest pain started around noon today with pressure-like substernal chest pain, nonradiating, 8 out of 10 intensity, with associated shortness of breath and nausea. Took about 2 to 3 hours before the pain subsided. He did improve with nitro he received in the ED. Patient's high-sensitivity troponin was elevated and there were some ischemic changes on EKG. Chest x-ray showed cardiac enlargement. Transfer was initiated to [facility] for higher level care to be seen by cardiology for an NSTEMI. Patient states that he started to experience substernal chest pain again about an hour ago after a phone call with the sister that upset him. Pain is presently 6 out of 10. Patient reports that he thinks he has a history of heart failure but does not recall when he last had an echocardiogram. He does take a diuretic for venous insufficiency. Also reports compliance with his other cardiac medications including anticoagulation for atrial fibrillation/flutter. His primary access liaison recently retired and he has established care with a new access liaison within the last couple months. Patient was admitted for NSTEMI started on heparin infusion and underwent cardiac catheter and had PCI to LAD from 99% to 10% with single drug-eluting stent patient also had a significant 80 to 90% stenosis of the inferior branch of the obtuse marginal artery and patient will be followed by cardiology as an outpatient for further intervention as needed, overall doing well, no further chest pain episodes reported, patient was also found to have ejection fraction 45% patient started on GDMT and titrated to optimize management, overall doing well, shortness of breath better, patient will be discharged home to follow with the PCP and cardiology postdischarge. Dear Dr. Pierre, WILLIAM, Huang is advised to follow up with you within 1-2 weeks. Follow-up with: None Scheduled appointments: Future Appointments Date Time Provider Department Center 01/23/2024 3:00 PM ABIGAIL Tomlinson. Yana medication list START taking these medications Instructions Last Dose Given Next Dose Due aspirin 81 mg chewable tablet Chew 1 tablet (81 mg) with breakfast. atorvastatin 80 mg tablet Commonly known as: Lipitor Take 1 tablet (80 mg) by mouth at bedtime. bumetanide 1 mg tablet Commonly known as: Bumex Take 1 tablet (1 mg) by mouth in the morning. clopidogrel 75 mg tablet Commonly known as: Plavix Take 1 tablet (75 mg) by mouth in the morning for 60 doses. dapagliflozin propanediol 10 mg Commonly known as: Farxiga Take 1 tablet (10 mg) by mouth in the morning for 60 doses. metoprolol succinate XL 25 mg 24 hr tablet Commonly known as: Toprol-XL Take 1 tablet (25 mg) by mouth in the morning. Do not crush or chew. nitroglycerin 0.4 mg SL tablet Commonly known as: Nitrostat Place 1 tablet (0.4 mg) under the tongue every 5 (five) minutes if needed for chest pain for up to 25 doses. potassium chloride CR 10 mEq ER tablet Commonly known as: Klor-Con M10 Take 1 tablet (10 mEq) by mouth every other day. Do not crush or chew. spironolactone 25 mg tablet Commonly known as: Aldactone Take 1 tablet (25 mg) by mouth in the morning for 60 doses. valsartan 40 mg tablet Commonly known as: Diovan Take 1 tablet (40 mg) by mouth in the morning for 60 doses. CONTINUE taking these medications Instructions Last Dose Given Next Dose Due albuterol 90 mcg/actuation inhaler Dulera 100-5 mcg/actuation inhaler Generic drug: mometasone-formoterol Eliquis 5 mg tablet Generic drug: apixaban FreeStyle Marshal 2 Sensor kit Generic drug: FreeStyle Marshal sensor system metFORMIN XR 500 mg 24 hr tablet Commonly known as: Glucophage-XR tolterodine LA 4 mg 24 hr capsule Commonly known as: Detrol LA torsemide 20 mg tablet Commonly known as: Demadex STOP taking these m (more content not included)...[facility]07-24-2024 NoteCardiology Progress Note Subjective Subjective: Huang Robles is a 68 y.o. male with PMH of DM, AF on Eliquis, obesity presented with chest pain and was found to have NSTEMI s/p PCI and BENEDICTO to LAD on 01/13/24. Today, patient is without acute concerns. Denies cp, sob, edema. Reports BRAND at baseline. Left radial cath site is without ecchymosis, hematoma, or complications. Patient discharge orders in per Hospitalist. Telemetry: A.fib 75-83, occasional PVC Objective Objective: Patient Vitals for the past 24 hrs: BP Temp Temp src Pulse Resp SpO2 Weight 01/15/24 0449 -- -- -- -- -- -- 130 kg (286 lb) 01/15/24 0423 122/86 36.3 ???C (97.3 ???F) Temporal 69 16 94 % -- 01/15/24 0031 (!) 118/99 36.3 ???C (97.3 ???F) Temporal 76 17 96 % -- 01/14/24 1955 103/76 36.3 ???C (97.3 ???F) Temporal 79 26 96 % -- 01/14/24 1600 102/67 36.3 ???C (97.4 ???F) Temporal 74 23 97 % -- 01/14/24 1203 120/72 36.3 ???C (97.4 ???F) Temporal 73 19 99 % -- 01/14/24 1104 138/85 -- -- 79 -- -- -- 01/14/24 0800 126/66 36.4 ???C (97.6 ???F) Temporal 70 14 99 % -- Physical Examination: GENERAL: AOx3, in no acute distress. Obese. NECK: No JVD present. CARDIAC: RRR. No murmur, rubs, or gallops. RESPIRATORY: CTAB, no increased effort of breathing. ABDOMEN: Soft, nontender, nondistended. EXTREMITIES:1+ nonpitting lower extremity edema, peripheral pulses present bilaterally +1. Relevant Lab Results Encounter Date: 01/12/24 ECG 12 lead Result Value Ventricular Rate 63 QRS DURATION 122 QT Interval 478 QTC CALCULATION(BAZETT) 489 R-[place] 105 T Wave [place] 110 Impression Atrial fibrillation Right bundle branch block Anteroseptal infarct (cited on or before 12-JAN-2024) Abnormal ECG When compared with ECG of 12-JAN-2024 23:08, (unconfirmed) Serial changes of Anteroseptal infarct Present Confirmed by Ollie TAN, MACKENZIE Moreau ([id number]) on 01/13/2024 8:54:29 AM Lab Results Component Value Date TROPONINI 22.53 (HH) 01/13/2024 Complete Echo (TTE) w/wo Imaging Agent, Strain, 3D, Bubble Study Result Date: 01/13/2024 1 1 [facility] Heart Station [address] [id number] [phone] (fax) Echocardiogram-[facility] Name: HUANG ROBLES Study Date: 01/13/2024 07:22 AM B/P: 107 mmHg/68 mmHg HR: 51 bpm Date of : 1955 Location: [facility] Height: 67 in. Age: 68 year(s) Patient Room: 3129 Weight: 295 lb. Gender: Male Patient Status: InPt BSA: 2.39 m2 Indication: Non-STEMI, Chest Pain Examination: Echocardiogram (Complete), Lumason Contrast Image Quality: Fair Patient Consent: Procedure explained to patient Exam Details Contrast: I.V. dose of Lumason Conclusions Left Ventricle: The left ventricle is normal size. Global left ventricular systolic function is mildly reduced. The EF is 45 % visually. Interventricular septal thickness is increased in the proximal portion. Regional wall motion abnormalities (see diagram). Diastolic dysfunction was indeterminate. Right Ventricle: The right ventricle is at upper normal limits in size. Right ventricular systolic function appears normal. Doppler studies suggest mildly elevated right sided pressures. Left Atrium: The left atrium appears normal in size. Tricuspid Valve: Mild tricuspid regurgitation. Overall Conclusions: Due to suboptimal imaging Lumason contrast was administered for opacification and better delineation of endocardial borders. Measurements Left Ventricle Label Value Normal Value LVOTd 1.9 cm (19cm - 21cm) LVOT VTI 18.5 cm (18cm - 22cm) LVOT PGmax 3 mmHg LVEF visual 45 % LVDd, 2D 5.55 cm (4.2cm - 5.9cm) LVDs, 2D 3.6 cm (2.1cm - 4cm) IVSd, 2D 0.81 cm (0.6cm - 1.1cm) LVPWd, 2D 0.8 cm (0.6cm - 1cm) LV Mass, 2D ASE 163.76 g LV Mass Index, 2D ASE 68.5 g/m?? (50g/m?? - 102.4g/m??) RWT, MM 0.29 (0 - 0.42) LVSVI, 2D 40.6 ml/m2 LVOT PGmean 2 mmHg LVSV_LVOT 53 ml Right Ventricle Label Value Normal Value RVDd, 2D 4.27 cm (1.9cm - 3.8cm) TAPSE 1.2 cm Right Atrium Label Value Normal Value RA Area 21 cm?? Aortic Valve Label Value Normal Value AV DVI 0.9 AV VTI 21.8 cm Mitral Valve Label Value Normal Value MV E Vmax 1.11 m/s MV A Vmax 0.4 m/s MV E/A 2.78 MV E/E' lateral 12.6 MV E' lateral 0.09 m/s Tricuspid Valve Label Value Normal Value RA Pressure 8 mmHg RVSP 38 mmHg TR Vmax 2.75 m/s Aorta Label Value Normal Value AoRoot, 2D 3.6 cm (1.4cm - 3.8cm) Great Vessels Label Value Normal Value IVC 2.5 cm (1.2cm - 2.3cm) Valvular Assessment LVOT 0.7 - 1.1 m/sec Aortic Valve 1.0 - 1.7 m/sec Mitral Valve 0.6 - 1.3 m/sec Tricuspid Valve 0.3 - 0.7 m/sec Pulmonic Valve 0.6 - 0.9 m/sec Regurgitation No No Mild Trivial Stenosis No No No No Max Velocity 0.89 m/sec 0.99 m/s 1.11 m/sec 0.97 m/s Max Gradient 4.00 mmHg 4.00 mmHg Mean Gradient 2.00 mmHg Valve Area 2.5 cm?? Findings Left Ventricle: The left ventricle is normal size. Global left ventricular systolic function is mildly reduced. EF bart (more content not included)...[facility]07-23-2024 Note Attestation signed by Marly Garcia MD at 01/14/2024 3:19 PM I personally saw and examined the patient on the same date of service as resident/fellow Dr Carrizales. I discussed the findings and therapeutic plan with the resident/fellow Dr Carrizales. I agree with the documentation, except for any edits/updates below. Teaching Physician's Revisions: None Patient feels better. He is ambulating only to the bathroom and he denies shortness of breath with that. He denies any recurrent chest discomfort. He has mild edema. His ejection fraction estimated to be on the echo 45%. He was given 1 dose of Bumex IV today and he will be started on Bumex p.o. The plan is to discharge him home hopefully tomorrow on current medications including aspirin, Plavix, Eliquis, atorvastatin, Toprol XL, valsartan, spironolactone, Farxiga, and Bumex. Aspirin will be discontinued in 1 month and he will remain on Plavix and Eliquis. Marly Garcia MD, [facility] Cardiology Progress Note Subjective Subjective: Huang Robles is a 68 y.o. male with PMH of DM, AF on Eliquis, obesity presented with chest pain and was found to have NSTEMI s.p PCI and BENEDICTO to LAD on 01/12. Today he has no chest pain, no palpitations, does have some shortness of breath on exertion, no lightheadedness. Access site looks normal, pulses intact. Has not gotten out of bed yet. Objective Objective: Patient Vitals for the past 24 hrs: BP Temp Temp src Pulse Resp SpO2 Weight 01/14/24 1203 120/72 36.3 ???C (97.4 ???F) Temporal 73 19 99 % -- 01/14/24 1104 138/85 -- -- 79 -- -- -- 01/14/24 0800 126/66 36.4 ???C (97.6 ???F) Temporal 70 14 99 % -- 01/14/24 0436 -- -- -- -- -- -- 132 kg (290 lb 3.2 oz) 01/14/24 0420 (!) 139/97 37.5 ???C (99.5 ???F) Temporal 78 16 97 % -- 01/14/24 0015 -- -- -- 64 18 97 % -- 01/13/24 2035 118/76 36.7 ???C (98.1 ???F) Temporal 85 17 99 % -- 01/13/24 1600 (!) 126/95 35.6 ???C (96 ???F) Temporal 76 25 100 % -- Physical Examination: GENERAL: AOx3, in no acute distress. NECK: No JVD present. CARDIAC: RRR. No murmur, rubs, or gallops. RESPIRATORY: CTAB, no increased effort of breathing. ABDOMEN: Soft, nontender, nondistended. EXTREMITIES:1+ lower extremity edema, peripheral pulses are 2+ bilaterally. Relevant Lab Results Encounter Date: 01/12/24 ECG 12 lead Result Value Ventricular Rate 63 QRS DURATION 122 QT Interval 478 QTC CALCULATION(BAZETT) 489 R-[place] 105 T Wave [place] 110 Impression Atrial fibrillation Right bundle branch block Anteroseptal infarct (cited on or before 12-JAN-2024) Abnormal ECG When compared with ECG of 12-JAN-2024 23:08, (unconfirmed) Serial changes of Anteroseptal infarct Present Confirmed by Ollie TAN, MACKENZIE Moreau ([id number]) on 01/13/2024 8:54:29 AM Lab Results Component Value Date TROPONINI 22.53 (HH) 01/13/2024 Complete Echo (TTE) w/wo Imaging Agent, Strain, 3D, Bubble Study Result Date: 01/13/2024 1 1 [facility] Heart Station [address] [place], [place] [id number] (fax) Echocardiogram-[facility] Name: HUANG ROBLES Study Date: 01/13/2024 07:22 AM B/P: 107 mmHg/68 mmHg HR: 51 bpm Date of : 1955 Location: [facility] Height: 67 in. Age: 68 year(s) Patient Room: 3129 Weight: 295 lb. Gender: Male Patient Status: InPt BSA: 2.39 m2 Indication: Non-STEMI, Chest Pain Examination: Echocardiogram (Complete), Lumason Contrast Image Quality: Fair Patient Consent: Procedure explained to patient Exam Details Contrast: I.V. dose of Lumason Conclusions Left Ventricle: The left ventricle is normal size. Global left ventricular systolic function is mildly reduced. The EF is 45 % visually. Interventricular septal thickness is increased in the proximal portion. Regional wall motion abnormalities (see diagram). Diastolic dysfunction was indeterminate. Right Ventricle: The right ventricle is at upper normal limits in size. Right ventricular systolic function appears normal. Doppler studies suggest mildly elevated right sided pressures. Left Atrium: The left atrium appears normal in size. Tricuspid Valve: Mild tricuspid regurgitation. Overall Conclusions: Due to suboptimal imaging Lumason contrast was administered for opacification and better delineation of endocardial borders. Measurements Left Ventricle Label Value Normal Value LVOTd 1.9 cm (19cm - 21cm) LVOT VTI 18.5 cm (18cm - 22cm) LVOT PGmax 3 mmHg LVEF visual 45 % LVDd, 2D 5.55 cm (4.2cm - 5.9cm) LVDs, 2D 3.6 cm (2.1cm - 4cm) IVSd, 2D 0.81 cm (0.6cm - 1.1cm) LVPWd, 2D 0.8 cm (0.6cm - 1cm) LV Mass, 2D ASE 163.76 g LV Mass Index, 2D ASE 68.5 g/m?? (50g/m?? - 102.4g/m??) RWT, MM 0.29 (0 - 0.42) LVSVI, 2D 40.6 ml/m2 LVOT PGmean 2 mmHg LVSV_LVOT 53 ml Right Ventricle Label Value Normal Va (more content not included)...[facility]07-23-2024 NoteHospital Medicine Daily Progress Note - 01/14/2024 8:49 AM; Room: [address] [place] [address] Admission: 01/12/2024 5:44 PM; Length of stay: 2 days THE HOSPITALIST TEAM PREFERS TO USE [employer] FOR COMMUNICATION 7AM-7PM. IF I DO NOT RESPOND WITHIN 15 MINUTES, PLEASE PAGE ME/CALL THROUGH THE [employer]. FROM 7PM-7AM, PLEASE PAGE [phone](COVR) Code Status: Full Code Barriers to Discharge: Cardiology clearance Expected Discharge Date: January 14, Discharge Destination: home Overview Patient is seen for evaluation and management of chest pain,. Subjective Overall feeling better, no chest pain or shortness of breath, cardiology wants to keep for 1 more day for further clinical optimization. Physical Exam Visit Vitals BP 126/66 (BP Location: Right arm, Patient Position: Lying) Pulse 70 Temp 36.4 ???C (97.6 ???F) (Temporal) Resp 14 Intake/Output Summary (Last 24 hours) at 01/14/2024 0849 Last data filed at 01/14/2024 0800 Gross per 24 hour Intake 1030 ml Output 1010 ml Net 20 ml Physical Exam Estimated body mass index is 45.45 kg/m??? as calculated from the following: Height as of this encounter: 1.702 m (5' 7 ). Weight as of this encounter: 132 kg (290 lb 3.2 oz). Neck, supple, Chest wall, no tenderness, Cardiovascular, S1-S2 heard, respiratory, good air entry bilaterally, Abdominal, bowel sounds audible, soft, Skin is warm and dry, Neurological, awake and alert, moving all extremities, Active Inpatient Problems Principal Problem: NSTEMI (non-ST elevated myocardial infarction) ([facility]) Active Problems: Asthma BPH with urinary obstruction Chronic GERD Class 3 severe obesity due to excess calories with serious comorbidity and body mass index (BMI) of 45.0 to 49.9 in adult ([facility]) Depression Fibromyalgia custodial current use of 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 therapy MIKAYLA (obstructive sleep apnea) Paroxysmal atrial fibrillation ([facility]) Primary hypertension Type 2 diabetes mellitus without complications ([facility]) Venous insufficiency of both lower extremities Assessment and Plan #NSTEMI, s/p cardiac cath, PCI to LAD, patient need further intervention down the line as an outpatient with cardiology continue with aspirin for 30 days, Plavix 1 year along with Eliquis , continue Toprol valsartan Aldactone Farxiga #Paroxysmal atrial fibrillation presently in sinus rhythm with rate ranging a,continue metoprolol along with Eliquis, #Acute on chronic systolic heart failure, NYHA class III at baseline, continue with diuresis, closely monitor with GDMT, further follow-up with PCP and cardiology to further optimize management, #Essential hypertension, better controlled with current regimen, closely monitor, #Diabetes mellitus 2, without hyperglycemia, closely monitor with sliding scale coverage, hold off metformin, #Class II obesity, #Obstructive sleep apnea, #Major recurrent depression in remission, #GERD with esophagitis, #Benign prostatic hyperplasia without obstructive symptoms, #Mild intermittent asthma not in flareup, Wounds: Wound 01/12/24 Breast Lower;Right (Active) Date First Assessed/Time First Assessed: 01/12/24 1800 Present on Original Admission: Yes Primary Wound Type: (c) Location: Breast Wound Location Orientation: Lower;Right Wound Description (Comments): excoriation Assessments 01/12/2024 6:00 PM 01/13/2024 7:45 AM Site Assessment Excoriated Red Wound 01/12/24 Breast Left;Lower (Active) Date First Assessed/Time First Assessed: 01/12/24 1800 Present on Original Admission: Yes Primary Wound Type: (c) Location: Breast Wound Location Orientation: Left;Lower Assessments 01/12/2024 6:00 PM 01/13/2024 8:35 PM Site Assessment Excoriated Blanchable erythema Wound 01/12/24 Venous Ulcer Pretibial Right;Lower (Active) Date First Assessed/Time First Assessed: 01/12/241814 Present on Original Admission: Yes Hand Hygiene Completed: Yes Primary Wound Type: Venous Ulcer Location: Pretibial Wound Location Orientation: (c) Right;Lower Assessments 01/12/2024 6:28 PM 01/13/2024 2:39 PM Site Assessment Brown Clean;Dry;Yellow-brown (Hemosiderin staining) Wound 01/12/24 Venous Ulcer Pretibial Distal;Bilateral (Active) Date First Assessed/Time First Assessed: 01/12/241814 Present on Original Admission: Yes Primary Wound Type: Venous Ulcer Location: Pretibial Wound Location Orientation: (c) Distal;Bilateral Assessments 01/13/2024 7:45 AM Site Assessment Brown Wound 01/12/24 Venous Ulcer Pretibial Left;Lower (Active) Date First Assessed/Time First Assessed: 01/12/241814 Present on Original Admission: Yes Hand Hygiene Completed: Yes Primary Wound Type: Venous Ulcer Location: Pretibial Wound Location Orientation: Left;Lower Assessments 01/12/2024 6:28 PM 01/13/2024 2:38 PM Site Assessment Brown Clean;Dry;Yellow-brown (Hemosiderin staining) VTE Prophylaxis: IV heparin Scheduled Meds aspirin, 81 mg, oral, Daily with breakfast atorvastatin, 80 mg, oral, Nightly bumet (more content not included)...[facility] 01-13-2024 NotePatient: Huang Robles Procedure Information Date/Time: 01/13/2430 Procedure: Coronary angiography Location: [facility] [employer]NAGER 3 / [facility] (Cath) Providers: Avi Maurice MD Clinical information reviewed: Allergies Physical Exam Airway Mallampati: III TM distance: >3 FB Neck ROM: full Cardiovascular Rhythm: regular Rate: normal Dental Pulmonary Breath sounds clear to auscultation Abdominal Abdomen: soft Bowel sounds: normal Other findings: 2+ DP and bilateral LE edema. Anesthesia Plan ASA 3 other (Conscious ) Anesthetic plan and risks discussed with patient. Use of blood products discussed with patient who consented to blood products. Plan discussed with attending. [facility] Medicine Daily Progress Note - 01/13/2024 7:47 AM; Room: [address] [place] [address] Admission: 01/12/2024 5:44 PM; Length of stay: 1 days THE HOSPITALIST TEAM PREFERS TO USE [employer] FOR COMMUNICATION 7AM-7PM. IF I DO NOT RESPOND WITHIN 15 MINUTES, PLEASE PAGE ME/CALL THROUGH THE [employer]. FROM 7PM-7AM, PLEASE PAGE [phone](COVR) Code Status: Full Code Barriers to Discharge: Cardiac workup/cardiac cath Expected Discharge Date: January 13, Discharge Destination: home Overview Patient is seen for evaluation and management of chest pain,. Subjective Presently chest pain is better controlled, no fever or shortness of breath reported, Physical Exam Visit Vitals BP 107/68 (BP Location: Left arm, Patient Position: Lying) Pulse 52 Temp 36.5 ???C (97.7 ???F) (Temporal) Resp 21 Intake/Output Summary (Last 24 hours) at 01/13/2024 0752 Last data filed at 01/13/2024 0641 Gross per 24 hour Intake 726.54 ml Output 425 ml Net 301.54 ml Physical Exam Estimated body mass index is 46.34 kg/m??? as calculated from the following: Height as of this encounter: 1.702 m (5' 7 ). Weight as of this encounter: 134 kg (295 lb 13.7 oz). Neck, supple, Chest wall, no tenderness, Cardiovascular, S1-S2 heard, respiratory, good air entry bilaterally, Abdominal, bowel sounds audible, soft, Skin is warm and dry, Neurological, awake and alert, moving all extremities, Active Inpatient Problems Principal Problem: NSTEMI (non-ST elevated myocardial infarction) ([facility]) Active Problems: Asthma BPH with urinary obstruction Chronic GERD Class 3 severe obesity due to excess calories with serious comorbidity and body mass index (BMI) of 45.0 to 49.9 in adult ([facility]) Depression Fibromyalgia custodial current use of 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 therapy MIKAYLA (obstructive sleep apnea) Paroxysmal atrial fibrillation ([facility]) Primary hypertension Type 2 diabetes mellitus without complications ([facility]) Venous insufficiency of both lower extremities Assessment and Plan #NSTEMI, presently no chest pain, continue with heparin infusion, n.p.o. for cardiac cath today, #Paroxysmal atrial fibrillation presently in sinus rhythm with rate ranging around 50-55, chest beta-tolu dose with close monitoring, patient takes Eliquis at home, presently on heparin infusion. #Essential hypertension, blood pressures running low side, will continue to monitor with holding parameters, #Diabetes mellitus 2, without hyperglycemia, closely monitor with sliding scale coverage, hold off metformin, #Class II obesity, #Obstructive sleep apnea, #Major recurrent depression in remission, #GERD with esophagitis, #Benign prostatic hyperplasia without obstructive symptoms, #Mild intermittent asthma not in flareup, Wounds: Wound 01/12/24 Breast Lower;Right (Active) Date First Assessed/Time First Assessed: 01/12/24 1800 Present on Original Admission: Yes Primary Wound Type: (c) Location: Breast Wound Location Orientation: Lower;Right Wound Description (Comments): excoriation Assessments 01/12/2024 6:00 PM Site Assessment Excoriated Wound 01/12/24 Breast Left;Lower (Active) Date First Assessed/Time First Assessed: 01/12/24 1800 Present on Original Admission: Yes Primary Wound Type: (c) Location: Breast Wound Location Orientation: Left;Lower Assessments 01/12/2024 6:00 PM Site Assessment Excoriated Wound 01/12/24 Venous Ulcer Pretibial Right;Lower (Active) Date First Assessed/Time First Assessed: 01/12/241814 Present on Original Admission: Yes Hand Hygiene Completed: Yes Primary Wound Type: Venous Ulcer Location: Pretibial Wound Location Orientation: (c) Right;Lower Assessments 01/12/2024 6:28 PM Site Assessment Brown Wound 01/12/24 Venous Ulcer Pretibial Left;Lower (Active) Date First Assessed/Time First Assessed: 01/12/241814 Present on Original Admission: Yes Primary Wound Type: Venous Ulcer Location: Pretibial Wound Location Orientation: Left;Lower Assessments 01/12/2024 6:28 PM Site Assessment [place] VTE Prophylaxis: IV heparin Scheduled Meds aspirin, 81 mg, oral, Daily with breakfast atorvastatin, 80 mg, oral, Nightly bumetanide, 1 mg, oral, Daily metoprolol tartrate, 25 mg, oral, BID oxybutynin XL, 10 mg, oral, Nightly Oxygen Therapy, , inhalation, Continuous Oxygen Therapy, , inhalation, Continuous heparin, 0-28 Units/kg/hr, Last Rate: 16 Units/kg/hr (01/13/24 0641) nitroglycerin, 5-200 mcg/min, Last Rate: Stopped (01/13/24 0300) Pertinent Investigations Hematology: Results from last 7 days Lab Units 01/13/24 0306 01/13/24 0235 01/12/242025 WBC AUTO 10*3/uL 10.03 -- -- HEMOGLOBIN g/dL 13.0 -- -- HEMATOCRIT % 38.9* -- -- MCV fL 93.7 -- -- PLATELETS AUTO 10*3/uL 232 -- 249 INR -- 1.34* -- Chemistry: Results from last 7 days Lab Units 01/13/24 0235 SODIUM mmol/L 134* POTASSIUM mmol/L 3.7 CHLORIDE mmol/L 103 CO2 mmol/L 23 BUN mg/dL 12 CREATININE mg/dL 0.71 (more content not included)...[facility]07-21-2024 NoteHospital Medicine History and Physical 01/12/2024 10:13 PM THE HOSPITALIST TEAM PREFERS TO USE [employer] FOR COMMUNICATION 7AM-7PM. IF I DO NOT RESPOND WITHIN 15 MINUTES, PLEASE PAGE ME/CALL THROUGH THE [employer]. FROM 7PM-7AM, PLEASE PAGE [phone](COVR) Chief Complaint Chest pain History of Present Illness Huang Robles is an 68 y.o. male who came from [facility] as a transfer with chest pain. the patient's chest pain started around noon today with pressure-like substernal chest pain, nonradiating, 8 out of 10 intensity, with associated shortness of breath and nausea. Took about 2 to 3 hours before the pain subsided. He did improve with nitro he received in the ED. Patient's high-sensitivity troponin was elevated and there were some ischemic changes on EKG. Chest x-ray showed cardiac enlargement. Transfer was initiated to [facility] for higher level care to be seen by cardiology for an NSTEMI. Patient states that he started to experience substernal chest pain again about an hour ago after a phone call with the sister that upset him. Pain is presently 6 out of 10. Patient reports that he thinks he has a history of heart failure but does not recall when he last had an echocardiogram. He does take a diuretic for venous insufficiency. Also reports compliance with his other cardiac medications including anticoagulation for atrial fibrillation/flutter. His primary access liaison recently retired and he has established care with a new access liaison within the last couple months. Past medical history: Paroxysmal atrial fibrillation/flutter on anticoagulation, venous insufficiency, PVCs, type 2 diabetes mellitus, hypertension, obstructive sleep apnea, osteoarthritis, depression, macular degeneration, fibromyalgia, constipation, asthma, anemia, GERD Past surgical history: Left hip surgery Social history: Denies smoking, alcohol use, illicit drug use Family history: Prostate cancer Review of System and Physical Exam Temp: [36.6 ???C (97.8 ???F)] 36.6 ???C (97.8 ???F) Heart Rate: [75-83] 75 Resp: [13-18] 18 BP: (131)/(83-85) 131/85 Physical Exam Vitals reviewed. Constitutional: General: He is not in acute distress. Appearance: Normal appearance. He is obese. He is not ill-appearing, toxic-appearing or diaphoretic. HENT: Head: Normocephalic and atraumatic. Right Ear: External ear normal. Left Ear: External ear normal. Nose: Nose normal. Mouth/Throat: Mouth: Mucous membranes are moist. Pharynx: Oropharynx is clear. Eyes: Extraocular Movements: Extraocular movements intact. Conjunctiva/sclera: Conjunctivae normal. Pupils: Pupils are equal, round, and reactive to light. Cardiovascular: Rate and Rhythm: Normal rate. Rhythm irregular. Pulses: Normal pulses. Heart sounds: Normal heart sounds. No murmur heard. No friction rub. No gallop. Pulmonary: Effort: Pulmonary effort is normal. No respiratory distress. Breath sounds: Normal breath sounds. Abdominal: General: Abdomen is flat. Bowel sounds are normal. Palpations: Abdomen is soft. Musculoskeletal: General: Normal range of motion. Cervical back: Normal range of motion and neck supple. Right lower leg: Edema present. Left lower leg: Edema present. Skin: General: Skin is warm and dry. Capillary Refill: Capillary refill takes less than 2 seconds. Neurological: General: No focal deficit present. Mental Status: He is alert and oriented to person, place, and time. Mental status is at baseline. Cranial Nerves: No cranial nerve deficit. Psychiatric: Mood and Affect: Mood normal. Behavior: Behavior normal. Review of Systems Constitutional: Negative. HENT: Negative. Eyes: Negative. Respiratory: Positive for shortness of breath. Negative for apnea, cough, choking, chest tightness, wheezing and stridor. Cardiovascular: Positive for chest pain and leg swelling. Negative for palpitations. Gastrointestinal: Positive for nausea. Negative for abdominal distention, abdominal pain, anal bleeding, blood in stool, constipation, diarrhea, rectal pain and vomiting. Endocrine: Negative. Genitourinary: Negative. Musculoskeletal: Negative. Allergic/Immunologic: Negative. Neurological: Negative. Hematological: Negative. Psychiatric/Behavioral: Negative. All other systems reviewed and are negative. Problem List Patient Active Problem List Diagnosis Date Noted NSTEMI (non-ST elevated myocardial infarction) ([facility]) 01/12/2024 Abdominal pain 01/12/2024 BPH with urinary obstruction 01/12/2024 Choledocholithiasis 01/12/2024 Chronic GERD 01/12/2024 Morbid obesity ([facility]) 01/12/2024 Constipation 01/12/2024 Depression 01/12/2024 Dyspnea 01/12/2024 Edema 01/12/2024 Anticoagulated 01/12/2024 Fluid retention 01/12/2024 Establishing care with new doctor, encounter for 01/12/2024 Excessive sweating 01/12/2024 Family history of prostate cancer 01/12/2024 Lightheadedness (more content not included)...[facility]07-02-2024 Evaluation + Plan note* Assessment & Plan Note - DONNY Cartagena - 12/24/2023 10:31 AM EDTAssociated Problem(s): BMI 45.0- 49.9, adult (Multi) Weight is up 11 pounds, no overt volume overload [facility] Work Phone: 1(869) 811-568907-02-2024 Evaluation + Plan note* Assessment & Plan Note - DONNY Cartagena - 12/24/2023 10:31 AM EDT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 CHADS VASc 3 chronically anticoagulated full dose Eliquis age 68, weight 141 kg Denies bleeding diatheses [facility] Work Phone: 1(887) 885-750307-02-2024 Miscellaneous Notes* Assessment & Plan Note - DONNY Cartagena - 12/24/2023 10:31 AM EDTAssociated Problem(s): BMI 45.0-49.9, adult (Multi) Weight is up 11 pounds, no overt volume overload * Assessment & Plan Note - DONNY Cartagena - 12/24/2023 10:31 AM EDT 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 CHADS VASc 3 chronically anticoagulated full dose Eliquis age 68, weight 141 kg Denies bleeding diatheses * Assessment & Plan Note - DONNY Cartagena - 12/24/2023 10:30 AM EDT Associated Problem(s): Essential hypertension Optimal in office * Assessment & Plan Note - DONNY Cartagena - 12/24/2023 10:30 AM EDT Associated Problem(s): Permanent atrial fibrillation (Multi) Chronic atrial fibrillation with treatment strategy rate control on metoprolol * Assessment & Plan Note - DONNY Cartagena - 12/24/2023 10:30 AM EDT Associated Problem(s): Cardiac and Vasculature Pleasant 68-year-old gentleman with chronic atrial fibrillation, CHADS VASc 3 anticoagulated full dose Eliquis (68 y/o, Wt 136 KG) denies bleeding events, 2020 LVEF 65% with normal RV function. No known CAD. * Assessment & Plan Note - DONNY Cartagena - 12/24/2023 9:08 AM EDT Associated Problem(s): Shortness of breath Seems to be worsening over last couple months No benefit from inhaler * Assessment & Plan Note - DONNY Cartagena - 12/24/2023 9:07 AM EDT Associated Problem(s): Lower extremity edema Chronic venous stasis changes [facility] Work Phone: [phone]) 529-577907-02-2024 Evaluation + Plan note* Assessment & Plan Note - DONNY Cartagena - 12/24/2023 10:30 AM EDTAssociated Problem(s): Essential hypertension Optimal in office [facility] Work Phone: [phone]) 882-435907-02-2024 Evaluation + Plan note* Assessment & Plan Note - DONNY Cartagena - 12/24/2023 10:30 AM EDTAssociated Problem(s): Permanent atrial fibrillation (Multi) Chronic atrial fibrillation with treatment strategy rate control on metoprolol [facility] Work Phone: 1([phone]) 211-616707-02-2024 Evaluation + Plan note* Assessment & Plan Note - DONNY Cartagena - 12/24/2023 10:30 AM EDTAssociated Problem(s): Cardiac and Vasculature Pleasant 68-year-old gentleman with chronic atrial fibrillation, CHADS VASc 3 anticoagulated full dose Eliquis (68 y/o, Wt 136 KG) denies bleeding events, 2020 LVEF 65% with normal RV function. No known CAD. [facility] Work Phone: [phone] 462-603107-02-2024 Evaluation + Plan note* Assessment & Plan Note - DONNY Cartagena - 12/24/2023 9:08 AM EDTAssociated Problem(s): Shortness of breath Seems to be worsening over last couple months No benefit from inhaler [facility] Work Phone: [phone] Evaluation + Plan note* Assessment & Plan Note - DONNY Cartagena - 12/24/2023 9:07 AM EDTAssociated Problem(s): Lower extremity edema Chronic venous stasis changes [facility] Work Phone: 1([phone] 155-793307-02-2024 History of Present illness Narrative* DONNY Cartagena - 12/24/2023 9:00 AM EDT Chief Complaint Seem to be getting short of breath Reason for Visit Annual follow-up Patient presents to the office today for outpatient follow-up for chronic atrial fibrillation, anticoagulation. Last evaluated in clinic by myself September 2023-at that time he was an add-on due to atypical symptoms. Presents today ambulatory with steady gait. Accompanied by sister Patient denies any hospitalizations or significant changes to interval medical history since last office follow-up. Follows routinely with PCP, reports having annual lab work completed History of Present Illness Patient is a very pleasant 68-year-old gentleman with mild intellectual disability. He presents to the office today reporting some mild shortness of breath. The sister reports that she has noted thathe is more short of breath and even having a hard time coming in from the parking lot . There is no evidence of orthopnea or PND. He is fairly sedentary and likes to spend the day working on his computer. He denies any type of palpitations. There is no exertional chest pain. He denies any prior pulmonary history. Patient reports that overall has no complaint(s) of chest pain, chest pressure/discomfort, claudication, exertional chest pressure/discomfort, irregular heart beat, and lower extremity edema or has complaint(s) of dyspnea. Patient with no prior CAD workup. Risk factor include hypertension, diabetes. Unknown lipid status.Sister and patient report progressive worsening dyspnea on exertion without evidence of overt volume overload no orthopnea or PND. Discussed noninvasive evaluation for ischemic heart disease and theyare in agreement to proceed. Review of Systems Cardiovascular: Positive for dyspnea on exertion. Negative for chest pain, irregular heartbeat, legswelling, near-syncope, orthopnea, palpitations, paroxysmal nocturnal dyspnea and syncope. Visit Vitals BP 120/78 (BP Location: Right arm, Patient Position: Sitting) Pulse 70 Ht 1.727 m (5' 8 ) Wt 141 kg (310 lb) BMI 47.14 kg/m Smoking Status Never BSA 2.6 m Physical Exam Vitals and nursing note reviewed. Constitutional: Appearance: Normal appearance. Cardiovascular: Rate and Rhythm: Normal rate. Rhythm regularly irregular. Heart sounds: Normal heart sounds. Comments: Chronic venous stasis color changes He has Curlex stockings on Nonpitting edema Pulmonary: Effort: Pulmonary effort is normal. Breath sounds: Normal breath sounds. Musculoskeletal: Cervical back: Full passive range of motion without pain. Right lower leg: No edema. Left lower leg: No edema. Skin: General: Skin is cool. Neurological: Mental Status: He is alert and oriented to person, place, and time. Psychiatric: Attention and Perception: Attention normal. Mood and Affect: Mood normal. Behavior: Behavior is cooperative. No Known Allergies Current Outpatient Medications Medication Instructions albuterol (Ventolin HFA) 90 mcg/actuation inhaler inhalation ascorbic acid (Vitamin C) 1,000 mg tablet 1 tablet, oral, Daily Eliquis 5 mg, oral, 2 times daily fluticasone propion-salmeteroL (Advair HFA) 115-21 mcg/actuation inhaler 2 puffs, inhalation, 2 times daily magnesium oxide 500 mg magnesium tablet 1 tablet, oral, Daily metFORMIN (Glucophage) 500 mg tablet oral, Every 12 hours metoprolol tartrate (LOPRESSOR) 100 mg, oral, 2 times daily spironolactone (ALDACTONE) 25 mg, oral, Daily tolterodine LA (Detrol LA) 4 mg 24 hr capsule 1 capsule, oral, Daily torsemide (DEMADEX) 10 mg, oral, Daily Assessment: Lower extremity edema Chronic venous stasis changes Shortness of breath Seems to be worsening over last couple months No benefit from inhaler Cardiac and Vasculature Pleasant 68-year-old gentleman with chronic atrial fibrillation, CHADS VASc 3 anticoagulated full dose Eliquis (68 y/o, Wt 136 KG) denies bleeding events, 2020 LVEF 65% with normal RV function. No known CAD. Permanent atrial fibrillation (Multi) Chronic atrial fibrillation with treatment strategy rate control on metoprolol Essential hypertension Optimal in office 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 CHADS VASc 3 chronically anticoagulated full dose Eliquis age 68, weight 141 kg Denies bleeding diatheses BMI 45.0-49.9, adult (Multi) Weight is up 11 pounds, no overt volume overload Plan: Through informed decision making process incorporating patients unique circumstances, the followingtreatment plan will be initiated: 1. Prescription drug management of cardiovascular medication for efficacy, adherence to treatment, side effect assessment and polypharmacy. Current treatment clinically warranted and to continue without modifications. 2. Lexiscan MPI (shortness of breath) no treadmill due to chronic venous stasis changes, deconditioning 3. Fall screening reveals an occurrence over the course of the last year. Events were reviewed in detail with the patient and due to IMPORT EXPORT MANAGER after testing Brenda Cotter MSN, INSURANCE AGENT-POWER TONG OPERATOR, PMHNP-BC [facility] Please excuse any errors in grammar or translation related to this dictation. Voice recognition software was utilized to prepare this document. documented in this [facility] Work Phone: 1(186) 495-738707-02-2024 Instructions* Patient Instructions* DONNY Cartagena - 12/24/2023 9:00 AM EDT PLAN: Through informed decision making process incorporating patients unique circumstances, the followingtreatment plan will be initiated: 1. Prescription drug management of cardiovascular medication for efficacy, adherence to treatment, side effect assessment and polypharmacy. Current treatment clinically warranted and to continue without modifications. 2. Lexiscan MPI (shortness of breath) no treadmill due to chronic venous stasis changes, deconditioning 3. Fall screening reveals an occurrence over the course of the last year. Events were reviewed in detail with the patient and due to IMPORT EXPORT MANAGER after testing documented in this [facility] Work Phone: 1(164) 102-510604-01-2024 History of Present illness Narrative* DONNY Cartagena - 09/23/2023 10:00 AM EDT Chief Complaint My feet are getting numb in the morning Reason for Visit Add-on. Patient presents to the office today for outpatient follow-up for paresthesia, reported dizziness. Last evaluated in clinic by Dr. Palacios December 2022. Presents today ambulatory with cane and steady gait. Accompanied by sister. Patient denies any hospitalizations or significant changes to interval medical history since last office follow-up. He follows routinely with PCP. Reports annual lab work completed June 2023. History of Present Illness Patient is an extremely pleasant 68-year-old gentleman with mild intellectual disability. There hadbeen a symptom call into the office last week with complaints of dizziness and lightheadedness and increased leg edema. The patient presents to the office today where his primary complaint is feeling numbness in both of his feet when he first wakes up in the morning, he then puts on his Kerlix wraps and the numbness goes away . He denies any type of dizziness to me. He does go on to report that last week he had bent over to clean out the refrigerator and when he raised up he got very dizzy and had to sit down . No evidence of orthostatic blood pressure drop in the office today. He has chronic venous stasis dermatitis, chronic dependent edema. Significant benefit with compression stockings. He does elevate his feet at night. There are no open wounds. Questionable neuropathy although the numbness goes away when he puts the compression stockings on, could probably be from edema. Nonetheless, no evidence of arterial disease. In regards to dizziness, he continues to deny in the office today. I believe the only symptom was the 1 postural orthostatic event that occurred last week. We reviewed nonpharmacologic avoidance techniques. Otherwise, he remains short of breath ambulating in from the front door which is no change from hisfollow-up in December [address] Palacios. He reports prior sleep study but could not tolerate CPAP mask. Denies any palpitations. No exertional chest pain. Patient reports that overall has no complaint(s) of chest pain, chest pressure/discomfort, exertional chest pressure/discomfort, fatigue, and near-syncope Daily activity: Sedentary and likes to spend the day working on a computer. Denies any change in exercise capacity or functional tolerance since last office visit. Review of Systems Cardiovascular: Positive for leg swelling. Negative for chest pain, dyspnea on exertion, irregular heartbeat, near-syncope, orthopnea, palpitations, paroxysmal nocturnal dyspnea and syncope. Neurological: Positive for paresthesias. Visit Vitals BP 120/62 (BP Location: Right arm, Patient Position: Sitting) Pulse 72 Ht 1.702 m (5' 7 ) Wt 136 kg (299 lb) BMI 46.83 kg/m Smoking Status Never BSA 2.54 m Physical Exam Constitutional: Appearance: Normal appearance. Cardiovascular: Rate and Rhythm: Normal rate. Rhythm regularly irregular. Heart sounds: Friction rub present. Comments: Chronic venous stasis changes, nonpitting edema. Pulmonary: Effort: Pulmonary effort is normal. Breath sounds: Normal breath sounds. Abdominal: Palpations: Abdomen is soft. Musculoskeletal: Right lower leg: No edema. Left lower leg: No edema. Skin: General: Skin is warm and dry. Neurological: Mental Status: He is alert and oriented to person, place, and time. Psychiatric: Attention and Perception: Attention normal. Mood and Affect: Mood normal. No Known Allergies Current Outpatient Medications Medication Instructions albuterol (Ventolin HFA) 90 mcg/actuation inhaler inhalation ascorbic acid (Vitamin C) 1,000 mg tablet 1 tablet, oral, Daily Eliquis 5 mg tablet 1 tablet, oral, 2 times daily fluticasone propion-salmeteroL (Advair HFA) 115-21 mcg/actuation inhaler 2 puffs, inhalation, 2 times daily magnesium oxide 500 mg magnesium tablet 1 tablet, oral, Daily metFORMIN (Glucophage) 500 mg tablet oral, Every 12 hours metoprolol tartrate (Lopressor) 100 mg tablet 1 tablet, oral, 2 times daily spironolactone (Aldactone) 25 mg tablet 1 tablet, oral, Daily tolterodine LA (Detrol LA) 4 mg 24 hr capsule 1 capsule, oral, Daily torsemide (Demadex) 20 mg tablet 0.5 tablets, oral, Daily Assessment: Pleasant 68-year-old gentleman with chronic atrial fibrillation, CHADS VASc 3 anticoagulated full dose Eliquis (68 y/o, Wt 136 KG) denies bleeding events, 2020 LVEF 65% with normal RV function. No known CAD. He was seen today as an add-on due to reported dizziness, reports 1 episode of postural orthostatichypotension when he had bent over to clean out the refrigerator. Otherwise continues to deny dizziness with negative orthostatic vital signs in the office today. He also complains of some brief episodes of lower extremity numbness when he first wakes up in the morning, is then resolved when he puts on his compression stockings. There is no evidence of peripheral arterial disease. He does have diabetes that is optimally controlled with no prior diagnosis of neuropathy. Overall patient is pleased with current state of cardiovascular health. At this time there are no indications for additional cardiovascular testing or need for medication changes. Problem List Items Addressed This Visit Diabetes mellitus ([facility]) Lower extremity edema Permanent atrial fibrillation ([facility]) - Primary custodial current use of 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 therapy Essential hypertension BMI 45.0-49.9, adult ([facility]) Plan: Through informed decision making process incorporating patients unique circumstances, the followingtreatment plan will be initiated: 1. Prescription drug management of cardiovascular medication for efficacy, adherence to treatment, side effect assessment and polypharmacy. Current treatment clinically warranted and to continue without modifications. 2. Return for follow-up; in the interim, contact the office if new symptoms arise. Dr. Muñoz as scheduled Brenda Cotter MSN, INSURANCE AGENT-POWER TONG OPERATOR, PMHNP-BC [facility] Please excuse any errors in grammar or translation related to this dictation. Voice recognition software was utilized to prepare this document. [facility] Work Phone: [phone]) [phone] Instructions* Patient Instructions* DONNY Cartagena - 09/23/2023 10:00 AM EDT Please bring all medicines, vitamins, and herbal supplements with you when you come to the office. Prescriptions will not be filled unless you are compliant with your follow up appointments or have a follow up appointment scheduled as per instruction of your physician. Refills should be requested at the time of your visit. Fall Prevention Education Given PLAN: Through informed decision making process incorporating patients unique circumstances, the followingtreatment plan will be initiated: 1. Prescription drug management of cardiovascular medication for efficacy, adherence to treatment, side effect assessment and polypharmacy. Current treatment clinically warranted and to continue without modifications. 2. Return for follow-up; in the interim, contact the office if new symptoms arise. Dr. Muñoz as scheduled BMI was above normal measurement. Current weight: 136 kg (299 lb) Weight change since last visit (-) denotes wt loss -2 lbs Weight loss needed to achieve BMI 25: 139.7 Lbs Weight loss needed to achieve BMI 30: 107.9 Lbs Advised to Increase physical activity. [facility] Work Phone: 1(224) 762-441402-27-2024 Hospital Discharge instructions Patient Education 08/20/2023 13:26:19 Benign Prostatic Hyperplasia Benign Prostatic Hyperplasia Benign prostatic hyperplasia (BPH) is an enlarged prostate gland that is caused by the normal agingprocess. The prostate may get bigger as a man gets older. The condition is not caused by cancer. The prostate is a walnut-sized gland that is involved in the production of semen. It is located in front of the rectum and below the bladder. The bladder stores urine. The urethra carries stored urine ou t of the body. An enlarged prostate can press on the urethra. This can make it harder to pass urine. The buildup of urine in the bladder can cause infection. Back pressure and infection may progress to bladder damage and kidney (renal) failure. What are the causes? This condition is part of the normal aging process. However, not all men develop problems from thiscondition. If the prostate enlarges away from the urethra, urine flow will not be blocked. If it enlarges toward the urethra and compresses it, there will be problems passing urine. What increases the risk? This condition is more likely to develop in men older than 50 years. What are the signs or symptoms? Symptoms of this condition include: Getting up often during the night to urinate. Needing to urinate frequently during the day. Difficulty starting urine flow. Decrease in size and strength of your urine stream. Leaking (dribbling) after urinating. Inability to pass urine. This needs immediate treatment. Inability to completely empty your bladder. Pain when you pass urine. This is more common if there is also an infection. Urinary tract infection (UTI). How is this diagnosed? This condition is diagnosed based on your medical history, a physical exam, and your symptoms. Tests will also be done, such as: A post-void bladder scan. This measures any amount of urine that may remain in your bladder after you finish urinating. A digital rectal exam. In a rectal exam, your health care provider checks your prostate by putting a lubricated, gloved finger into your rectum to feel the back of your prostate gland. This exam detects the size of your gland and any abnormal lumps or growths. An exam of your urine (urinalysis). A prostate specific antigen (PSA) screening. This is a blood test used to screen for prostate cancer. An ultrasound. This test uses sound waves to electronically produce a picture of your prostate gland. Your health care provider may refer you to a specialist in kidney and prostate diseases (urologist). How is this treated? Once symptoms begin, your health care provider will monitor your condition (active surveillance or watchful waiting). Treatment for this condition will depend on the severity of your condition. Treatment may include: Observation and yearly exams. This may be the only treatment needed if your condition and symptoms are mild. Medicines to relieve your symptoms, including: ?Medicines to shrink the prostate. ?Medicines to relax the muscle of the prostate. Surgery in severe cases. Surgery may include: ?Prostatectomy. In this procedure, the prostate tissue is removed completely through an open incision or with a laparoscope or robotics. ?Transurethral resection of the prostate (TURP). In this procedure, a tool is inserted through the opening at the tip of the penis (urethra). It is used to cut away tissue of the inner core of the prostate. The pieces are removed through the same opening of the penis. This removes the blockage. ?Transurethral incision (TUIP). In this procedure, small cuts are made in the prostate. This lessens the prostate's pressure on the urethra. ?Transurethral microwave thermotherapy (TUMT). This procedure uses microwaves to create heat. The heat destroys and removes a small amount of prostate tissue. ?Transurethral needle ablation (TUNA). This procedure uses radio frequencies to destroy and remove a small amount of prostate tissue. ?Interstitial laser coagulation (ILC). This procedure uses a laser to destroy and remove a small amount of prostate tissue. ?Transurethral electrovaporization (TUVP). This procedure uses electrodes to destroy and remove a small amount of prostate tissue. ?Prostatic urethral lift. This procedure inserts an implant to push the lobes of the prostate away from the urethra. Follow these instructions at home: Take dgiv-lba-[id number] and prescription medicines only as told by your health care provider. Monitor your symptoms for any changes. Contact your health care provider with any changes. Avoid drinking large amounts of liquid before going to bed or out in public. Avoid or reduce how much caffeine or alcohol you drink. Give yourself time when you urinate. Keep all follow-up visits. This is important. Contact a health care provider if: You have unexplained back pain. Your symptoms do not get better with treatment. You develop side effects from the medicine you are taking. Your urine becomes very dark or has a bad smell. Your lower abdomen becomes distended and you have trouble passing urine. Get help right away if: You have a fever or chills. You suddenly cannot urinate. You feel light-headed or very dizzy, or you faint. There are large amounts of blood or clots in your urine. Your urinary problems become hard to manage. You develop moderate to severe low back or flank pain. The flank is the side of your body between the ribs and the hip. These symptoms may be an emergency. Get help right away. Call 911. Do not wait to see if the symptoms will go away. Do not drive yourself to the hospital. Summary Benign prostatic hyperplasia (BPH) is an enlarged prostate that is caused by the normal aging process. It is not caused by cancer. An enlarged prostate can press on the urethra. This can make it hard to pass urine. This condition is more likely to develop in men older than 50 years. Get help right away if you suddenly cannot urinate. This information is not intended to replace advice given to you by your health care provider. Make sure you discuss any questions you have with your health care provider. Document Revised: 12/27/2021 Document Reviewed: 12/27/2021 [employer] Patient Education 2022 [employer]. Follow Up Care 08/27/2022 11:21:47 With:JENNA MULLER, CORBIN Johnson, URL Address: [address] [place] [address] When: Unknown [facility] Hospital Discharge instructions Patient Education 08/27/2022 08:22:08 Benign Prostatic Hyperplasia Benign Prostatic Hyperplasia Benign prostatic hyperplasia (BPH) is an enlarged prostate gland that is caused by the normal agingprocess and not by cancer. The prostate is a walnut-sized gland that is involved in the production of semen. It is located in front of the rectum and below the bladder. The bladder stores urine and the urethra is the tube that carries the urine out of the body. The prostate may get bigger as a man gets older. An enlarged prostate can press on the urethra. This can make it harder to pass urine. The build-up of urine in the bladder can cause infection. Back pressure and infection may progress to bladder damage and kidney (renal) failure. What are the causes? This condition is part of a normal aging process. However, not all men develop problems from this condition. If the prostate enlarges away from the urethra, urine flow will not be blocked. If it enlarges toward the urethra and compresses it, there will be problems passing urine. What increases the risk? This condition is more likely to develop in men over the age of 50 years. What are the signs or symptoms? Symptoms of this condition include: Getting up often during the night to urinate. Needing to urinate frequently during the day. Difficulty starting urine flow. Decrease in size and strength of your urine stream. Leaking (dribbling) after urinating. Inability to pass urine. This needs immediate treatment. Inability to completely empty your bladder. Pain when you pass urine. This is more common if there is also an infection. Urinary tract infection (UTI). How is this diagnosed? This condition is diagnosed based on your medical history, a physical exam, and your symptoms. Tests will also be done, such as: A post-void bladder scan. This measures any amount of urine that may remain in your bladder after you finish urinating. A digital rectal exam. In a rectal exam, your health care provider checks your prostate by putting a lubricated, gloved finger into your rectum to feel the back of your prostate gland. This exam detects the size of your gland and any abnormal lumps or growths. An exam of your urine (urinalysis). A prostate specific antigen (PSA) screening. This is a blood test used to screen for prostate cancer. An ultrasound. This test uses sound waves to electronically produce a picture of your prostate gland. Your health care provider may refer you to a specialist in kidney and prostate diseases (urologist). How is this treated? Once symptoms begin, your health care provider will monitor your condition (active surveillance or watchful waiting). Treatment for this condition will depend on the severity of your condition. Treatment may include: Observation and yearly exams. This may be the only treatment needed if your condition and symptoms are mild. Medicines to relieve your symptoms, including: ?Medicines to shrink the prostate. ?Medicines to relax the muscle of the prostate. Surgery in severe cases. Surgery may include: ?Prostatectomy. In this procedure, the prostate tissue is removed completely through an open incision or with a laparoscope or robotics. ?Transurethral resection of the prostate (TURP). In this procedure, a tool is inserted through the opening at the tip of the penis (urethra). It is used to cut away tissue of the inner core of the prostate. The pieces are removed through the same opening of the penis. This removes the blockage. ?Transurethral incision (TUIP). In this procedure, small cuts are made in the prostate. This lessens the prostate's pressure on the urethra. ?Transurethral microwave thermotherapy (TUMT). This procedure uses microwaves to create heat. The heat destroys and removes a small amount of prostate tissue. ?Transurethral needle ablation (TUNA). This procedure uses radio frequencies to destroy and remove a small amount of prostate tissue. ?Interstitial laser coagulation (ILC). This procedure uses a laser to destroy and remove a small amount of prostate tissue. ?Transurethral electrovaporization (TUVP). This procedure uses electrodes to destroy and remove a small amount of prostate tissue. ?Prostatic urethral lift. This procedure inserts an implant to push the lobes of the prostate away from the urethra. Follow these instructions at home: Take [id number] and prescription medicines only as told by your health care provider. Monitor your symptoms for any changes. Contact your health care provider with any changes. Avoid drinking large amounts of liquid before going to bed or out in public. Avoid or reduce how much caffeine or alcohol you drink. Give yourself time when you urinate. Keep all follow-up visits as told by your health care provider. This is important. Contact a health care provider if: You have unexplained back pain. Your symptoms do not get better with treatment. You develop side effects from the medicine you are taking. Your urine becomes very dark or has a bad smell. Your lower abdomen becomes distended and you have trouble passing your urine. Get help right away if: You have a fever or chills. You suddenly cannot urinate. You feel lightheaded, or very dizzy, or you faint. There are large amounts of blood or clots in the urine. Your urinary problems become hard to manage. You develop moderate to severe low back or flank pain. The flank is the side of your body between the ribs and the hip. These symptoms may represent a serious problem that is an emergency. Do not wait to see if the symptoms will go away. Get medical help right away. Call your local emergency services (911 in the [place] Do not drive yourself to the hospital. Summary Benign prostatic hyperplasia (BPH) is an enlarged prostate that is caused by the normal aging process and not by cancer. An enlarged prostate can press on the urethra. This can make it hard to pass urine. This condition is part of a normal aging process and is more likely to develop in men over the age of 50 years. Get help right away if you suddenly cannot urinate. This information is not intended to replace advice given to you by your health care provider. Make sure you discuss any questions you have with your health care provider. Document Released: 06/10/2006 Document Revised: 05/05/2019 Document Reviewed: 07/15/2017 [employer] Patient Education 2020 [employer] Follow Up Care 06/26/2021 10:34:20 With:Karissa BANKS MD, URL Address: [facility] [address], [place] [id number]- When: Unknown [facility] evaluation + Plan note Future Appointments Appointment Date:08/30/2023 10:45:00 AM Scheduled Provider:Karissa BANKS MD Location:[facility] Appointment Type:URO Office Visit Diagnostic Tests Pending * PSA Total 08/27/[address] [facility] evaluation + Plan note Future Appointments Appointment Date:08/21/2024 08:45:00 AM Scheduled Provider:Karissa BANKS MD Location:[facility] Appointment Type:URO Office Visit Diagnostic Tests Pending * PSA Total 05/24/[address] [facility] evaluation + Plan note Future Appointments Appointment Date:11/26/2023 02:00:00 PM Scheduled Provider:Paty Guevara Location:[facility] Appointment Type:FM New Patient - Adult Appointment Date:11/29/2023 07:30:00 AM Scheduled Provider: [facility] Type:PUL Pulmonary Function Test (FT) Appointment Date:11/29/2023 08:30:00 AM Scheduled Provider: Location[facility] Appointment Type:PUL Six Minute Walk Test (FT) Appointment Date:01/08/2024 09:15:00 AM Scheduled Provider:Dayan Chen MD Location[facility] Appointment Type:Pulmonary Follow Up (FT) Appointment Date:08/21/2024 08:45:00 AM Scheduled Provider:Karissa BANKS MD Location:[facility] Appointment Type:URO Office Visit Future Scheduled Tests Radiology* XR Chest [facility]ments Appointment Date:01/08/2024 09:15:00 AM Scheduled Provider:Dayan Chen MD [facility] Type:Pulmonary Follow Up (FT) Appointment Date:03/12/2024 09:30:00 AM Scheduled Provider: Location:[facility] Appointment Type: Medicare Wellness Subsequent Appointment Date:08/21/2024 08:45:00 AM Scheduled Provider:Kar[facility] BANKS MD [facility] Type:[facility]O Office Visit Future Scheduled Tests Radiology* XR Chest 2 Views [facility]29[facility]23 [facility] Future Appointments Appointment Date:01/20/2024 01:00:00 PM Scheduled Provider: [facility] Type:NM Myocard Spect Multi Rest/Stress-Res Appointment Date:01/20/2024 02:00:00 PM Scheduled Provider: [facility] Type:NM Myocard Spect Multi Rest/Stress - R Appointment Date:01/21/2024 01:00:00 PM Scheduled Provider: [facility] App[facility] Type:NM Myocard Spect MultiRest/Stress-Stre Appointment Date:01/21/2024 02:00:00 PM Scheduled Provider: [facility] App[facility] Type:NM Myocard Spect Multi Rest/Stress - S Appointment Date:03/12/2024 09:30:00 AM Scheduled Provider: Location:[facility] Appointment Type: Medicare Wellness Subsequent Appointment Date:04/06/2024 10:00:00 AM Scheduled Provider:Dayan Chen MD [facility] Type:Pulmonary Follow Up (FT) Appointment Date:08/21/2024 08:45:00 AM Scheduled Provider:Karissa BANKS MD [facility] Appointment Type:URO Office Visit Future Scheduled Tests Radiology* NM Myocardial Spect Rest/Stress 2 Day 01[facility]20/24 [facility] Future Appointments Appointment Date:02/17/2024 10:00:00 AM Scheduled Provider:Paty Guevara Location:[facility] Appointment Type:FM Open Appointment Date:03/12/2024 09:30:00 AM Scheduled Provider: Location:[facility] Appointment Type: Medicare Wellness Subsequent Appointment Date:04/06/2024 10:00:00 AM Scheduled Provider:Dayan Chen MD [facility] Type:Pulmonary Follow Up (FT) Appointment Date:08/21/2024 08:45:00 AM Scheduled Provider:Karissa BNAKS MD Location[facility] Appointment Type:URO Office Visit [facility] evaluation + Plan note Future Appointments Appointment Date:04/06/2024 10:00:00 AM Scheduled Provider:Dayan Chen MD [facility] Appointment Type:Pulmonary Follow Up (FT) Appointment Date:05/18/2024 10:00:00 AM Scheduled Provider:Pat[facility]uevara [facility] Open Appointment Date:08/21/2024 08:45:00 AM Scheduled Provider:Kar[facility]ANKS MD [facility]O Office Visit Appointment Date:03/22/2025 09:30:00 AM Scheduled Provider: [facility] Type:FM Medicare Wellness Subsequent Diagnostic Tests Pending * HCV Antibody RFX to Quant PCR 03/13/24 [facility] evaluation + Plan note Future Appointments Appointment Date:05/18/2024 10:00:00 AM Scheduled Provider:Paty Guevara [facility] Type:FM Open Appointment Date:08/21/2024 08:45:00 AM Scheduled Provider:Karissa BANKS MD [facility] Type:URO Office Visit Appointment Date:03/22/2025 09:30:00 AM Scheduled Provider: [facility] Type: Medicare Wellness Subsequent [facility] evaluation + Plan note Future Appointments Appointment Date:06/22/2024 10:00:00 AM Scheduled Provider: [facility] Type:FM Lab Draw Appointment Date:08/21/2024 08:45:00 AM Scheduled Provider:Karissa BANKS MD [facility] Type:URO Office Visit Appointment Date:03/22/2025 09:30:00 AM Scheduled Provider: [facility] Type:FM Medicare Wellness Subsequent [facility] Evaluation + Plan note Future Appointments Appointment Date:03/12/2024 09:30:00 AM Scheduled Provider: Location:[facility] [place] Appointment Type:FM Medicare Wellness Subsequent Appointment Date:04/06/2024 10:00:00 AM Scheduled Provider:Dayan Chen MD Location[facility] Appointment Type:Pulmonary Follow Up (FT) Appointment Date:05/18/2024 10:00:00 AM Scheduled Provider:Paty Guevara Location:[facility] [place] Appointment Type:FM Open Appointment Date:08/21/2024 08:45:00 AM Scheduled Provider:Karissa BANKS MD Location:[facility] [place] Appointment Type:URO Office Visit [facility] evaluation + Plan note Future Appointments Appointment Date:08/21/2024 08:45:00 AM Scheduled Provider:Karissa BANKS MD Location:[facility] [place] Appointment Type:URO Office Visit Appointment Date:03/22/2025 09:30:00 AM Scheduled Provider: [facility] Type:FM Medicare Wellness Subsequent [facility] Evaluation + Plan note Future Appointments Appointment Date:02/15/2025 10:20:00 AM Scheduled Provider:Paty Guevara [facility] Appointment Type:FM Open Appointment Date:03/22/2025 09:30:00 AM Scheduled Provider: Location:[facility] [place] Appointment Type:FM Medicare Wellness Subsequent Appointment Date:03/26/2025 09:45:00 AM Scheduled Provider:Karissa BANKS MD Location:[facility] [place] Appointment Type:URO Office Visit [facility] evaluation + Plan note Future Appointments Appointment Date:05/03/2025 09:20:00 AM Scheduled Provider: Location:[facility] [place] Appointment Type:FM Lab Draw Appointment Date:05/17/2025 10:40:00 AM Scheduled Provider:Paty Guevara Location:[facility] Appointment Type:FM Open Appointment Date:09/16/2025 10:30:00 AM Scheduled Provider: Location:[facility] Appointment Type:URO Nurse Visit Appointment Date:09/23/2025 10:20:00 AM Scheduled Provider:WILLIAM Christiansen APRN, [place] [facility] Location:[facility] Appointment Type:URO Office Visit Appointment Date:03/28/2026 09:30:00 AM Scheduled Provider: Location:[facility] Appointment Type: Medicare Wellness Subsequent Future Scheduled Tests Laboratory* HgbA1c 03/22/25 * PSA Screen, Total 03/25/25 * Urine Microalbumin/Creatinine Ratio 03/22/25 * Comprehensive Metabolic Panel 03/22/25 * Lipid Panel 03/22/25 [facility] evaluation note* Diagnosis Permanent atrial fibrillation (CMS/HCC)- Primary Atrial fibrillation 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 Essential hypertension Unspecified essential hypertension Type 2 diabetes mellitus without complication, without long-term current use of insulin (CMS/HCC) Lower extremity edema Edema BMI 45.0-49.9, adult (CMS/HCC) documented in this encounter [facility] Work Phone: Evaluation noteNo assessment information available [facility] Work Phone: Evaluation note* Diagnosis Type 2 diabetes mellitus without complication, without long-term current use of insulin (CMS/HCC)- Primary Onychomycosis Dermatophytosis of nail Pain in right toe(s) Pain in left toe(s) [facility] Diagnosis Memory impairment- Primary Memory loss Concentration deficit MIKAYLA (obstructive sleep apnea) Obstructive sleep apnea (adult) (pediatric) Other insomnia [facility]* Diagnosis Memory impairment- Primary Memory loss Concentration deficit MIKAYLA (obstructive sleep apnea) Obstructive sleep apnea (adult) (pediatric) Other insomnia [facility]* Diagnosis Memory impairment- Primary Memory loss Essential hypertension (CMS/HCC) Unspecified essential hypertension Type 2 diabetes mellitus with other neurologic complication, without long-term current use of insulin ([facility]) Paroxysmal atrial fibrillation ([facility]) Atrial fibrillation documented in [facility] encounter [facility]* Diagnosis Memory impairment- Primary Memory loss Essential hypertension ([facility]/HCC) Unspecified essential hypertension Type 2 diabetes mellitus with other neurologic complication, without long-term current use of insulin ([facility]) Concentration deficit documented in this encounter [facility]* Diagnosis Permanent atrial fibrillation (Multi)- Primary Atrial fibrillation Essential hypertension Unspecified essential hypertension custodial current use of 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 therapy BMI 45.0-49.9, adult (Multi) Lower extremity edema Edema Shortness of breath documented in this encounter [facility] Work Phone: Evaluation note* Diagnosis Permanent atrial fibrillation (Multi)- Primary Atrial fibrillation Essential hypertension Unspecified essential hypertension 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 BMI 45.0-49.9, adult (Multi) Lower extremity edema Edema Shortness of breath Coronary artery disease of [place] artery of [place] heart with stable angina pectoris ([facility])- Primary Shortness of breath Ischemic cardiomyopathy Other specified forms of chronic ischemic heart disease Permanent atrial fibrillation (Multi) Atrial fibrillation custodial current use of 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 therapy Essential hypertension Unspecified essential hypertension Mixed hyperlipidemia BMI 40.0-44.9, adult (Multi) Two-vessel coronary artery disease- Primary Coronary artery disease of [place] artery of [place] heart with stable angina pectoris ([facility]-HCC) Permanent atrial fibrillation (Multi) Atrial fibrillation Mixed hyperlipidemia Ischemic cardiomyopathy Other specified forms of chronic ischemic heart disease 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 BMI 40.0-44.9, adult (Multi) Shortness of breath Lower extremity edema Edema Never smoked tobacco documented in this encounter [facility] Work Phone: Evaluation note* Diagnosis Memory impairment- Primary Memory loss Concentration deficit MIKAYLA (obstructive sleep apnea) Obstructive sleep apnea (adult) (pediatric) Other insomnia documented in this encounter [facility]* Diagnosis Type 2 diabetes mellitus without complication, without long-term current use of insulin ([facility])- Primary Onychomycosis Dermatophytosis of nail Pain in right toe(s) Pain in left toe(s) documented in this encounter [facility]* Diagnosis Permanent atrial fibrillation (Multi)- Primary Atrial fibrillation Essential hypertension Unspecified essential hypertension 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 BMI 45.0-49.9, adult (Multi) Lower extremity edema Edema Shortness of breath Coronary artery disease of [place] artery of [place] heart with stable angina pectoris- Primary Shortness of breath Ischemic cardiomyopathy Other specified forms of chronic ischemic heart disease Permanent atrial fibrillation (Multi) Atrial fibrillation 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 Essential hypertension Unspecified essential hypertension Mixed hyperlipidemia BMI 40.0-44.9, adult (Multi) Two-vessel coronary artery disease- Primary Coronary artery disease of [place] artery of [place] heart with stable angina pectoris Permanent atrial fibrillation (Multi) Atrial fibrillation Mixed hyperlipidemia Ischemic cardiomyopathy Other specified forms of chronic ischemic heart disease Essential hypertension Unspecified essential hypertension BMI 40.0-44.9, adult (Multi) Shortness of breath Lower extremity edema Edema Never smoked tobacco Essential (primary) hypertension Unspecified essential hypertension custodial current use of 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 therapy documented in this encounter [facility] Work Phone: Evaluation note* Diagnosis Type 2 diabetes mellitus without complication, without long-term current use of insulin- Primary Onychomycosis Dermatophytosis of nail Pain in right toe(s) Pain in left toe(s) [facility] Diagnosis Venous insufficiency of both lower extremities- Primary Type 2 diabetes mellitus without complication, without long-term current use of insulin (HCC) Pain due to onychomycosis of toenails of both feet [facility] NarrativeReturns in follow-up of problems as noted. He is tolerating his permanent atrial fibrillation well.I cannot elicit any orthopnea PND or dyspnea exertion. He does have occasional flareups of asthma but they appear to be distinctly different from anything related to the atrial fibrillation. The patient's blood pressure is adequately managed and diabetes is been addressed appropriately. He continues to be obese and the merits of diet exercise and weight loss were advocated.-[facility] [address] DO Work Phone: History of Present illness NarrativeReturns in follow- up of problems as noted. He is doing well. Despite his persistent atrial fibrillation he denies any activity limitations or aerobic restrictions. He denies any angina dyspnea or arrhythmia symptomatology. We discussed briefly his increased body mass index and the impact is having on diabetes and hypertension. We advocated a diet. There was a question about leg edema. He is on 2 diuretics. I offered to intensify his diuretic therapy but he declines. Ultimately we agreed he would restrict fluid intake as well as caloric intake. He was also encouraged to keep his legs up.[facility] Work Phone: History of Present illness NarrativeReturns in follow- up of problems as noted. He is doing well. Despite his persistent atrial fibrillation he denies any activity limitations or aerobic restrictions. He denies any angina dyspnea or arrhythmia symptomatology. We discussed briefly his increased body mass index and the impact is having on diabetes and hypertension. We advocated a diet. There was a question about leg edema. He is on 2 diuretics. I offered to intensify his diuretic therapy but he declines. Ultimately we agreed he would restrict fluid intake as well as caloric intake. He was also encouraged to keep his legs up.[facility] Work Phone: Hospital course Narrative No data available for this section [facility] Discharge instructions No data available for this section [facility] Discharge instructions Additional Instructions DISCHARGE INSTRUCTIONS FOR ANGIOPLASTY/CORONARY/PERIPHERAL/STENT IMPLANT FOR ADULT ANTICOAGULATION -Since the greatest risk of a blood clot forming with the stent occurs in the first 2-3 weeks after implantation, you will need to take 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s for at least [?insert date or amount of time?]. ANTICOAGULATION MEDICATION [INSERT MEDICATION NAME: Aspirin 81mg once a day, Aspirin 325mg once a day, Clopidogrel (Plavix) 75mg one tablet, Prasugrel (Effient) 10mg once a day once a day, Ticagrelor (Brilinta) 90mg twice a day] STATIN MEDICATION [INSERT MEDICATION NAME: atorvastatin (Lipitor) 80 mg or rosuvastatin (Crestor) 40mg] [Bare Metal Stent (BMS) duration ] [Drug-Eluting Stent (BENEDICTO) duration] DO NOT discontinue Plavix/Effient/Brilinta/Aspirin during the first few months regardless of what you are advised by your family doctor or pharmacist, without first calling the access liaison who implanted the stent. If you require pain relief during this time, please take only ACETAMINOPHEN (TYLENOL)- NO additional aspirin or ibuprofen. DISCHARGE ACTIVITIES ARE FOLLOWS: First week after discharge: -Take it easy at home, no strenuous activity. -Do not lift or pull objects over 10-15 pounds, including children, and groceries for four weeks. If puncture site is at wrist do NOT lift more than three pounds for three days. - May walk up stairs. -May shower. -No excessive scrubbing of the affected site (groin). -May ride in car. -May resume sexual intercourse after 1-2 weeks. -No MRI for 12 days. -May drive in 4-7 days. -If puncture site is at the wrist do not manipulate the wrist for 24 hours, and no soaking wrist for three days. Second Week: -May take a bath -May start walking 3 times a week for 15-20 minutes at a leisurely pace. You should be able to carry on a conversation comfortably without feeling winded. -No strenuous activity as in jogging, running, weight lifting, stair steppers, etc. until the access liaison approves these activities. Check with the access liaison on your first follow-up visit. CALL YOUR BARK FITTER: -If bleeding should occur from the catheter insertion site- apply pressure to the site then immediately call us. -Report any fever, redness, drainage, increased swelling, or firmness at the catheter insertion site. Some bruising or slight swelling may be present at the time of discharge. -Should arm or leg become cold, numb, white, or blue, contact the access liaison immediately. -IF you should experience episodes of angina, e.g. chest discomfort, heaviness, tightness, pressure burning with or without radiation to the neck, jaw, arms or back- use 1 Nitrostat tablet under your tongue every 5-10 minutes and up to three tablets. IF NO RELIEF, CALL 911 or GO TO THE NEAREST EMERGENCY ROOM. -Please notify our office if you have recurrent angina. -Cardiac Rehab Education Provided. Participation in the Cardiopulmonary Rehabilitation program is recommended. The attending access liaison or a nurse clinician should provide you with specific instructions regarding activity, diet, medications, and further follow up for you. Follow the medication instructions provided on your discharge. If the dosages and instructions on this sheet differ from the dosage and instructions on the bottle, follow the instructions on the bottle. [facility] is not responsible for incorrect prescription information provided by the patient during their visit. Do not stop your medications without consulting your health care provider. Please take the list with you to your next doctor's appointment.[facility] Work Phone: Progress note No data available for this section [facility] reason for referral (narrative)* Consultation (Routine) - Authorized Specialty Diagnoses / Procedures Referred By Contac t Referred To Contact Cardiology Diagnoses Shortness of breath Procedures Follow Up In Cardiology Brenda Cotter APRN-CALI [address] [facility] 2, [place] [place] [id number] Referral ID Status Reason Start Date Expiration Date V isits Requested Visits Authorized [id number] Authorized 12/24/2023 12/23/2024 1 1 * Cardiac Stress Testing (Routine) - Pending Review Specialty Diagnoses / Procedures Referred By Danielac t Referred To Contact Radiology Diagnoses Shortness of breath Procedures Nuclear Stress Test CHG MYOCARDIAL SPECT MULTIPLE STUDIES Brenda Cotter APRN-CALI 703 [facility] 2, [address] [address] Referral ID Status Reason Start Date Expiration Date V isits Requested Visits Authorized [id number] Pending Review 12/24/2023 12/23/2024 5 5 [facility] Work Phone: Reason for referral (narrative)* Consultation (Routine) - Authorized Specialty Diagnoses / Procedures Referred By Contac t Referred To Contact Cardiology Diagnoses Coronary artery disease of [place] artery of [place] heart with stable angina pectoris ([facility]) Procedures Follow Up In Cardiology Bradley Antonio MD [address] [place] [address] 2, [address] [place] [id number] Bradley Antonio MD [address], [address] [place] [address] Referral ID Status Reason Start Date Expiration Date V isits Requested Visits Authorized [id number] Authorized 03/10/2024 03/10/2025 1 1 [facility] Work Phone: reSmithers Avanza for visit Narrative* Consultation (Routine) - Closed Specialty Diagnoses / Procedures Referred By Contpavel t Referred To Contact Psychology Diagnoses Memory impairment Procedures CT OFFICE/OUTPATIENT [facility] 60 MINUTES Avi Padgett, [address] [place] [address] Jose Moulton, PhD 703 [facility] [address] [place] [address] Referral ID Status Reason Start Date Expiration Date V isits Requested Visits Authorized [id number] Closed Specialty Services Required 03/09/2024 09/05/2024 1 1 [facility] Summary Purpose Family History No Family History Records FoundUnknown Family Member Name Dates Details Family history of congestive heart failure: Mother(V17.49, Z82.49) Status:Active Family history of diabetes m ellitus: Mother(V18.0, Z83.3) Status:Active Family history of hypertensi on: Mother(V17.49, Z82.49) Status:Active Family history of malignant neoplasm of stomach: Father(V16.0, Z80.0) Status:Active Unknown Family Member Name Dates Details Family history of congestive heart failure: Mother(V17.49, Z82.49) Status:Active Family history of diabetes m ellitus: Mother(V18.0, Z83.3) Status:Active Family history of hypertensi on: Mother(V17.49, Z82.49) Status:Active Family history of malignant neoplasm of stomach: Father(V16.0, Z80.0) Status:Active Unknown Family Member Name Dates Details Family history of congestive heart failure: Mother(V17.49, Z82.49) Status:Active Family history of diabetes m ellitus: Mother(V18.0, Z83.3) Status:Active Family history of hypertensi on: Mother(V17.49, Z82.49) Status:Active Family history of malignant neoplasm of stomach: Father(V16.0, Z80.0) Status:Active Unknown Family Member Name Dates Details Family history of congestive heart failure: Mother(V17.49, Z82.49) Status:Active Family history of diabetes m ellitus: Mother(V18.0, Z83.3) Status:Active Family history of hypertensi on: Mother(V17.49, Z82.49) Status:Active Family history of malignant neoplasm of stomach: Father(V16.0, Z80.0) Status:Active Unknown Family Member Name Dates Details Family history of malignant neoplasm of stomach: Father(V16.0, Z80.0) Status:Active Family history of hypertensi on: Mother(V17.49, Z82.49) Status:Active Family history of diabetes m ellitus: Mother(V18.0, Z83.3) Status:Active Family history of congestive heart failure: Mother(V17.49, Z82.49) Status:Active Unknown Family Member Name Dates Details Family history of congestive heart failure: Mother(V17.49, Z82.49) Status:Active Family history of diabetes m ellitus: Mother(V18.0, Z83.3) Status:Active Family history of hypertensi on: Mother(V17.49, Z82.49) Status:Active Family history of malignant neoplasm of stomach: Father(V16.0, Z80.0) Status:Active Unknown Family Member Name Dates Details Family history of congestive heart failure: Mother(V17.49, Z82.49) Status:Active Family history of diabetes m ellitus: Mother(V18.0, Z83.3) Status:Active Family history of hypertensi on: Mother(V17.49, Z82.49) Status:Active Family history of malignant neoplasm of stomach: Father(V16.0, Z80.0) Status:Active Unknown Family Member Name Dates Details Family history of congestive heart failure: Mother(V17.49, Z82.49) Status:Active Family history of diabetes m ellitus: Mother(V18.0, Z83.3) Status:Active Family history of hypertensi on: Mother(V17.49, Z82.49) Status:Active Family history of malignant neoplasm of stomach: Father(V16.0, Z80.0) Status:Active Unknown Family Member Name Dates Details Family history of congestive heart failure: Mother(V17.49, Z82.49) Status:Active Family history of diabetes m ellitus: Mother(V18.0, Z83.3) Status:Active Family history of hypertensi on: Mother(V17.49, Z82.49) Status:Active Family history of malignant neoplasm of stomach: Father(V16.0, Z80.0) Status:Active Advance Directives No Advanced Directives Records Found Advance Directive Response Recorded Date/ Time Advance Directives No January 29 2:49pm Documents on File Type Date Recorded Patient Vp Compliance Expl anation Power of Observatory Director 10/03/2023 10:08 AM Estephania r of Observatory Director Documents on File Type Date Recorded Patient Vp Compliance Expl anation Power of Observatory Director 10/03/2023 10:08 AM Estephania r of Observatory Director Chief Complaint HUANG ROBLES is being seen for an annual follow-up of.HUANG ROBLES is being seen for an annual follow-up of.HUANG ROBLES is being seen for an annual follow-up of. Chief Complaint and Reason for Visit Chief Complaint shorness of breathe, aschvd Chief Complaint shorness of breathe, aschvd R41.3 Reason for Referral Specialty Diagnoses / Procedures Referred By Sonia grewal Referred To Contact Diagnoses Memory impairment Procedures MR brain w and wo contrast routine Avi Padgett DO [address] [place] [address] [facility] Scheduling [address] [place] [address] Referral ID Status Reason Start Date Expiration Date V isits Requested Visits Authorized [id number] Pending Review 03/09/2024 09/05/2024 1 1 Specialty Diagnoses / Procedures Referred By Sonia grewal Referred To Contact Psychology Diagnoses Memory impairment Procedures CT OFFICE/OUTPATIENT [facility] 60 MINUTES Avi Padgett DO [address] [place] [address] Jose Moulton, PhD [address] [address] Referral ID Status Reason Start Date Expiration Date Visits Requested Visits Authorized [id number] Pending Review Specialty Services Required 03/09/2024 09/05/2024 1 1 Additional Source Comments (unrecognized sect ion and content) No Status Records FoundNo Status Records FoundNo Status Records FoundNo Status Records FoundNo Status Records FoundNo Status Records FoundNo Status Records FoundNo Status Records FoundNo Status Records FoundNo Status Records FoundNo Status Records FoundNo Status Records FoundNo Status Records FoundNo Status Records FoundNo Status Records FoundNo Status Records FoundNo Status Records FoundNo Status Records FoundNo Status Records FoundNo Status Records FoundNo Status Records FoundNo Status Records FoundNo Status Records Found INFORMATION SOURCE (unrecogn ized section and content) DATE CREATED AUTHOR 12/12/2017 [facility] DATE CREATED AUTHOR AUTHOR'S ORGANIZ ATION 11/29/2018 [facility] DATE CREATED AUTHOR AUTHOR'S ORGANIZ ATION 09/04/2019 [facility] DATE CREATED AUTHOR AUTHOR'S ORGANIZ ATION 12/27/2022 [facility] DATE CREATED AUTHOR AUTHOR'S ORGANIZ ATION 12/28/2022 [facility] DATE CREATED AUTHOR AUTHOR'S ORGANIZ ATION 12/23/2023 [facility] DATE CREATED AUTHOR AUTHOR'S ORGANIZ ATION 01/17/2024 [facility] DATE CREATED AUTHOR AUTHOR'S ORGANIZ ATION 03/12/2024 [facility] DATE CREATED AUTHOR AUTHOR'S ORGANIZ ATION 03/16/2024 [place] [facility] DATE CREATED AUTHOR AUTHOR'S ORGANIZ ATION 03/17/2024 [place] [facility] DATE CREATED AUTHOR AUTHOR'S ORGANIZ ATION 04/17/2024 [facility] DATE CREATED AUTHOR AUTHOR'S ORGANIZ ATION 06/23/2024 [facility] DATE CREATED AUTHOR AUTHOR'S ORGANIZ ATION 11/21/2024 [facility] DATE CREATED AUTHOR AUTHOR'S ORGANIZ ATION 12/19/2024 [facility] DATE CREATED AUTHOR AUTHOR'S ORGANIZ ATION 01/09/2025 [facility] DATE CREATED AUTHOR AUTHOR'S ORGANIZ ATION 01/15/2025 [facility] DATE CREATED AUTHOR AUTHOR'S ORGANIZ ATION 03/28/2025 [facility] DATE CREATED AUTHOR AUTHOR'S ORGANIZ ATION 03/29/2025 [facility] DATE CREATED AUTHOR AUTHOR'S ORGANIZ ATION 04/04/2025 [facility] Patient Care team informatio n (unrecognized section and content) Adult Nurse Practitioner Relationship Specialty Start Date End Date Jesse Gonzales PA-C [address] [place] [address] PCP - General 06/24/99 Team Status: Active Member Role Status Dates NON STAFF Primary Care Provider Active Team Status: Inactive Member Role Status Dates W Ranjan Maciel DO Attending Provider Active S tart: February 04, 2024 End: February 04, 2024 NON STAFF Primary Care Provider Active Start: February 04, 2024 End: February 04, 2024 Adult Nurse Practitioner Relationship Specialty Start Date End Date Avi Lopez MD [address] [place] [address] PCP - General Family Medicine 10/03/23 Avi Lopez MD [address] [place] [address] PCP - Devoted 09/23/23 Adult Nurse Practitioner Relationship Specialty Start Date End Date Avi Lopez MD [address] [place] [address] PCP - General Family Medicine 10/03/23 Avi Lopez MD [address] [place] [address] PCP - Devoted 09/23/23 Team Status: Active Member Role Status Dates Satish Pratt MD Primary Care Provider Active Team Status: Inactive Member Role Status Dates Avi Padgett DO Attending Pro vider, Referring Provider Active Start: April 07, 2024 End: April 07, 2024 Satish Pratt MD Primary Care Provider Active Start: April 07, 2024 End: April 07, 2024 Adult Nurse Practitioner Relationship Specialty Start Date End Date Avi Lopez MD [address] [place] [address] PCP - General Family Medicine 10/03/23 Avi Lopez MD [address] [place] [address] PCP - Devoted 09/23/23 Adult Nurse Practitioner Relationship Specialty Start Date End Date Avi Lopez MD [address] [place] [address] PCP - General Family Medicine 10/03/23 Avi Lopez MD [address] [place] [address] PCP - Devoted 09/23/23 Adult Nurse Practitioner Relationship Specialty Start Date End Date Avi Lopez MD [address] [place] [address] PCP - General Family Medicine 10/03/23 Avi Lopez MD [address] [place] [address] PCP - Devoted 09/23/23 Adult Nurse Practitioner Relationship Specialty Start Date End Date Avi Lopez MD [address] [place] [address] PCP - General Family Medicine 10/03/23 Avi Lopez MD [address] [place] [address] PCP - Devoted 09/23/23 Adult Nurse Practitioner Relationship Specialty Start Date End Date Avi Lopez MD [address] [place] [address] PCP - General Family Medicine 10/03/23 Avi Lopez MD [address] [place] [address] PCP - Devoted 09/23/23 Adult Nurse Practitioner Relationship Specialty Start Date End Date Avi Lopez MD [address] [place] [address] PCP - General Family Medicine 10/03/23 Avi Lopez MD [address] [place] [address] PCP - Devoted 09/23/23 06/23/24 Adult Nurse Practitioner Relationship Specialty Start Date End Date Avi Lopez MD [address] [place] [address] PCP - General Family Medicine 10/03/23 Avi Lopez MD [address] [place] [address] PCP - Devoted 09/23/23 06/23/24 Adult Nurse Practitioner Relationship Specialty Start Date End Date Satish Pratt MD [address] [facility] [place] [address] PCP - General Family Medicine 12/24/23 Adult Nurse Practitioner Relationship Specialty Start Date End Date Satish Pratt MD [address] [facility] [place] [address] PCP - General Family Medicine 12/24/23 Adult Nurse Practitioner Relationship Specialty Start Date End Date Avi Lopez MD [address] [place] [address] PCP - General Family Medicine 10/03/23 Avi Lopez MD [address] [place] [address] PCP - Devoted 09/23/23 Adult Nurse Practitioner Relationship Specialty Start Date End Date Avi Lopez MD [address] [place] [address] PCP - General Family Medicine 10/03/23 Adult Nurse Practitioner Relationship Specialty Start Date End Date Avi Lopez MD [address] [place] [address] PCP - General Family Medicine 10/03/23 Adult Nurse Practitioner Relationship Specialty Start Date End Date Satish Pratt MD [address] [facility] [place] [address] PCP - General Family Medicine 12/24/23 Adult Nurse Practitioner Relationship Specialty Start Date End Date Avi Lopez MD [address] [place] [address] PCP - General Family Medicine 10/03/23 Adult Nurse Practitioner Relationship Specialty Start Date End Date Avi Lopez MD [address] [place] [address] PCP - General Family Medicine 10/03/23 Reason for Visit (unrecogniz ed section and content) Reason Comments Follow-up Numb feet-better in compression stockingsEdema in ankles Reason Comments DM Foot Care Dm nail care Reason Comments Memory Loss Reason Comments Follow-up 1yr Reason Comments Post-Cath Specialty Diagnoses / Procedures Referred By Contac t Referred To Contact Cardiology Diagnoses Coronary artery disease of [place] artery of [place] heart with stable angina pectoris ([facility]) Procedures Follow Up In Cardiology Brenda Cotter APRN-CALI 703 [facility] 2, [address] [address] Referral ID Status Reason Start Date Expiration Date V isits Requested Visits Authorized [id number] Authorized 01/22/2024 01/21/2025 1 1 Reason Comments DM Foot Care DM nail care Reason Comments Follow-up 6 month Follow up fo r Atrial Fibrillation Specialty Diagnoses / Procedures Referred By Contac t Referred To Contact Cardiology Diagnoses Coronary artery disease of [place] artery of [place] heart with stable angina pectoris Procedures Follow Up In Cardiology Bradley Antonio MD 703 [facility] 2, [address] [address] Phone: tel: fax: Bradley Antonio MD [address] [facility] 2, [place] [id number] Phone: tel: fax: Referral ID Status Reason Start Date Expiration Date V isits Requested Visits Authorized [id number] Authorized 03/10/2024 03/10/2025 1 1 Reason Comments DM Foot Care FOR RECORDS PERTAINING TO PATIENTS WHO ARE OR HAVE BEEN ENROLLED IN A CHEMICAL DEPENDENCY/SUBSTANCEABUSE PROGRAM, SOME INFORMATION MAY BE OMITTED. This clinical summary was aggregated from multiple sources. Caution should be exercised in using it in the provision of clinical care. This summary normalizes information from multiple sources, and as a consequence, information in this document may materially change the coding, format and clinical context of patient data. In addition, data may be omitted in some cases. CLINICAL DECISIONS SHOULD BE BASED ON THE PRIMARY CLINICAL RECORDS. [employer] [facility]. provides no warranty or guarantee of the accuracy or completeness of information in this document.
[2025-04-05 17:21] VITALS: BP 78/38
[2025-04-05 17:30] VITALS: BP 74/59
[2025-04-05 17:42] VITALS: BP 97/72
[2025-04-05 17:45] VITALS: BP 118/72; PULSE 52; O2SAT 96
[2025-04-05] MEDS: 0.9 % SODIUM CHLORIDE 500 ML IV (17:59)
== END 2025-04-05 19:33 | disposition home or self-care (01) ==
PROVIDERS: Emergency Provider Emergency Medicine; PCP Nurse Practitioner
DX: S50.12XA Contusion of left forearm, initial encounter (principal); S60.511A Abrasion of right hand, initial encounter; W18.30XA Fall on same level, unspecified, initial encounter; Y93.H2 Activity, gardening and landscaping
CPT/HCPCS: 73090; 73130; 90471; 90715; 96374; 99284; J1171

== ENCOUNTER 2025-04-27 11:24 | Emergency (ER) | payer MEDICARE, SELFPAY ==
[2025-04-27 11:28] VITALS: BP 145/96; PULSE 75; TEMP 36.6; O2SAT 97; BMI 42.6
--- OUTSIDE RECORDS SUMMARY | 2025-04-27 11:31 | XMS_ITS | Clinical Summary ---
Author Organization [facility] Address [address] [place] [address] Care Team Providers Care Customer Service Officer Name Role Phone IgnacioLoridi SENIOR IT RECRUITER-C Primary Care Provider [phone] Allergies No known active allergies Medications MedicationSigDispense QuantityRefillsLast FilledStart DateEnd DateStatus Eliquis 5 mg tablet Take 5 mg by mouth in the morning and at bedtime.11/07/2023ctive metFORMIN XR (Glucophage-XR) 500 mg 24 hr tablet Take 500 mg by mouth 2 times daily.Active tolterodine LA (Detrol LA) 4 mg 24 hr capsule Take 4 mg by mouth in the morning.08/01/2023ctive torsemide (Demadex) 20 mg tablet Take 10 mg by mouth in the morning.11/07/2023ctive albuterol 90 mcg/actuation inhaler Inhale.Active FreeStyle Sean 2 Sensor kit CHECK BLOOD SUGAR 4 TIMES A DAY11/29/2023ctive Dulera 100-5 mcg/actuation inhaler INHALE 2 PUFFS TWICE DAILY FOR 30 DAYS12/23/2023ctive atorvastatin (Lipitor) 80 mg tablet Indications:Chronic ischemic heart disease, unspecifiedTake 1 tablet (80 mg) by mouth at bedtime. 30 tablet ctive dapagliflozin propanediol (Farxiga) 10 mg Indications:Chronic ischemic heart disease, unspecifiedTake 1 tablet (10 mg) by mouth in the morning for 60 doses. 30 tablet ctive nitroglycerin (Nitrostat) 0.4 mg SL tablet Indications:Chronic ischemic heart disease, unspecifiedPlace 1 tablet (0.4 mg) under the tongue every 5 (five) minutes if needed for chest pain for up to 25 doses. 25 tablet 01/14/2024ctive spironolactone (Aldactone) 25 mg tablet Indications:Chronic ischemic heart disease, unspecifiedTake 1 tablet (25 mg) by mouth in the morning for 60 doses. 30 tablet ctive valsartan (Diovan) 40 mg tablet Indications:Chronic ischemic heart disease, unspecifiedTake 1 tablet (40 mg) by mouth in the morning for 60 doses. 30 tablet ctive metoprolol succinate XL (Toprol-XL) 25 mg 24 hr tablet Indications:Chronic ischemic heart disease, unspecifiedTake 1 tablet (25 mg) by mouth in the morning. Do not crush or chew. 30 tablet ctive bumetanide (Bumex) 1 mg tablet Indications:Shortness of breathTake 1 tablet (1 mg) by mouth in the morning. 30 tablet 01/15/2024ctive Active Problems ProblemNoted DateDiagnosed DateNSTEMI (non-ST elevated myocardial infarction) 01/12/2024bdominal pain01/12/2024PH with urinary ewjspvvxpid10/21/2024 Xskxgadkgivhdxloflr25/21/2024hronic GERD01/12/2024Morbid qnzpmjn2901/12/2024 Eiwldjilgazu04/21/3955Eccbbjoaie04/21/5834Skcksut07/21/3599Fhfmo38/21/2024 Rhqsnagmrqlssu62/21/2024Fluid evqmqpaof70/21/2024Establishing care with new doctor, encounter for01/12/2024Excessive kmtayhty09/21/2024Family history of prostate pvxfzk9901/12/20245383Jhggnifwbbjpeqk76/21/7516Ldhizgip64/21/2024 Pwsyjnnczjoduf89/21/2024 Overview (01/12/2024): rght knee Urge /21/2024Urinary ceeslbl9901/12/2024Ventricular premature beats 01/12/2024Shortness of adzgnk0312/24/2023 Overview (01/12/2024): Last Assessment & Plan: Seems to be worsening over last couple months No benefit from inhaler Developmental lppnenaros18/23/2024lass 3 severe obesity due to excess calories with serious comorbidity and body mass index (BMI) of45.0 to 49.9 in adult 10/03/2023Macular tyqdjsuqrxan25/11/0830Uecvmvxcktvre54/11/2024OSA (obstructive sleep apnea)10/03/2023Venous insufficiency of both lower vxzcovppeix95/11/2024 group home current use of 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 rwudwqt5609/23/2023 Overview (01/12/2024): Last Assessment & Plan: CHADS VASc 3 chronically anticoagulated full dose Eliquis age 68, weight 141 kg Denies bleeding diatheses BMI 45.0-49.9, adult09/23/2023 Overview (01/12/2024): Last Assessment & Plan: Weight is up 11 pounds, no overt volume overload Dnocod4309/05/2023iabetes meogjxis68/14/2024ermanent atrial fibrillation 09/05/2023 Overview (01/12/2024): Last Assessment & Plan: Chronic atrial fibrillation with treatment strategy rate control on metoprolol Pedal edema09/05/2023 Overview (01/12/2024): Last Assessment & Plan: Chronic venous stasis changes Obesity, Class III, BMI 40-49.9 (morbid obesity)03/12/2017Pain in left hip 09/09/2015Presence of left artificial hip joint09/09/2015Aftercare following joint replacement wdrogha6809/09/2015Paroxysmal atrial vhpvtukofbea62/18/2015 Kjwhswurchke89/22/2015Major depressive disorder, recurrent, unspecified 05/15/2015Difficulty in walking, not elsewhere ewfonkkepc36/20/2015Pain in left knee05/13/2015Unspecified atrial xintmek3505/13/2015nemia in other chronic diseases classified cvheyrexr28/04/2015Other ybsqfd4202/25/2015Muscle weakness (generalized)02/25/2015Primary generalized (osteo)opbxkanxe10/04/2015Primary ikoltpbmfriv07/04/2015 Overview (01/12/2024): Last Assessment & Plan: Optimal in office Type 2 diabetes mellitus without zednpkkkkbnuf01/04/2015Unspecified abnormalities of gait and kinfrohv30/04/2015Chronic ischemic heart disease, qdzgonyutqf74/04/2015 Family History Medical HistoryRelationNameCommentsProstate cancerFatherRelationNameStatus CommentsFather Social History Tobacco UseTypesPacks/DayYears UsedDateSmoking Tobacco: NeverSmokeless Tobacco: NeverAHC UtilitiesAnswerDate RecordedIn the past 12 months has the electric, gas, oil, or water Coupay threatened to shut off services in your home?No 01/12/2024Humiliation, Afraid, Rape, and Kick questionnaireAnswerDate Recorded Within the last year, have you been afraid of your partner or ex-partner?No 01/12/2024Emotionally AbusedNot on file01/12/2024hysically AbusedNot on file 01/12/2024Sexually AbusedNot on file01/12/2024Overall Financial Resource Strain (CARDIA)AnswerDate RecordedHow hard is it for you to pay for the very basics like food, housing, medical care, and heating?Not hard at all01/12/2024 TransportationAnswerDate RecordedIn the past 12 months, has lack of transportation kept you from medical appointments or from getting medications?No 01/12/2024Lack of Transportation (Non-Medical)Not on file01/12/2024Housing Stability Vital SignAnswerDate RecordedUnable to Pay for Housing in the Last YearNot on file01/12/2024Number of Places Lived in the Last YearNot on file 01/12/2024In the last 12 months, was there a time when you did not have a steady place to sleep or slept in ashelter (including now)?No01/12/2024Hunger Vital SignAnswerDate RecordedWithin the past 12 months, you worried that your food would run out before you got the money to buymore.Never true4Ran Out of Food in the Last YearNot on file01/12/2024Sex and Gender InformationValueDate RecordedSex Assigned at BirthNot on fileLegal VhzTvcc2812/20/2021 9:35 PM EDT Gender IdentityNot on fileSexual OrientationNot on file Last Filed Vital Signs Vital SignReadingTime TakenCommentsBlood Cjgdadoj748/7707 12:35 PM EDT Jtqoj845801/15/2024 12:35 PM FKRAmaiccqdgdq24 ??C (98.6 ??F)01/15/2024 12:35 PM EDTRespiratory Ukls959201/15/2024 12:35 PM EDTOxygen Qlxaocpcek67%01/15/2024 12:35 PM EDTInhaled Oxygen Concentration--Sdoytf941 kg (286 lb)01/15/2024 4:49 AM EDT Ivabaa760.2 cm (5' 7 )01/12/2024 6:00 PM EDTBody Mass Index44.7901/12/2024 6:00 PM EDT Plan of Treatment Health MaintenanceDue DateLast DoneCommentsCT Vyfldlcphdzg1955Diabetes: Hemoglobin A1C1955FIT-DNA1955FIT1955FOBT1955Medicare Annual Wellness (AWV)1955 4501Psaxsrxpvecgp1955Diabetes: Retinopathy Xcabtdooo57/07/1965Depression Ikznpaypo46/07/1967Diabetes: Urine Protein Bothcbhle31/07/1974Pneumococcal Vaccine: 50+ Years (1 of 2 - PCV)1974Adult Stmkdea7905/30/1977Zoster Vaccines (1 of 2)2005Fall Risk Evszmszeg70/07/2020 COVID-19 Vaccine ( - 2024- season)51, 09/09/2020, 08/19/2020, Additional history existsInfluenza Vaccine (#1)02/22/2025olonoscopy 11/20/519359/20/2019Colorectal Cancer Pccxulhri79/20/2029HIB VaccinesAged OutNo longer eligible based on patient's age to complete this topicHPV VaccinesAged OutNo longer eligible based on patient's age to complete this topicIPV Vaccines Aged OutNo longer eligible based on patient's age to complete this topic Meningococcal B VaccineAged OutNo longer eligible based on patient's age to complete this topicMeningococcal VaccineAged OutNo longer eligible based on patient's age to complete this topicRotavirus VaccinesAged OutNo longer eligible based on patient's age to complete this topic Medical Devices ImplantedTypeAreaManufacturerDevice IdentifierShelf Expiration DateModel / Serial / LotSaldot,Yary Mr 3.00 X 16 - [id number] - [id number] Implanted:Qty: 1 on 01/13/2024 by Angus Maurice [facility] [id number]/ [id number] / [id number] / [id number] Insurance Advance Directives * Full Code (Latest Code Status on File) Date ActivatedDate InactivatedComments01/12/2024 6:20 PM01/15/2024 4:31 PM Care Teams Team MemberRelationshipSpecialtyStart DateEnd Date Paty Pierre FNP-C [address] [place] [address] PCP - GeneralNurse Practitioner01/13/24
--- OUTSIDE RECORDS SUMMARY | 2025-04-27 11:31 | XMS_ITS | Clinical Summary ---
Author Organization [facility] Address [address] [place] [address] Phone Care Team Providers Care Receiver Bulk System Name Role Phone Paty Pierre MATURITY CHECKER-PERFUSIONIST Primary Care Provider [phone] Allergies No known active allergies Medications MedicationSigDispense QuantityRefillsLast FilledStart DateEnd DateStatus albuterol (Ventolin HFA) 90 mcg/actuation inhaler Inhale.Active ascorbic acid (Vitamin C) 1,000 mg tablet Take 1 tablet (1,000 mg) by mouth once daily.Active fluticasone propion-salmeteroL (Advair HFA) 115-21 mcg/actuation inhaler Inhale 2 puffs 2 times a day.Active metFORMIN (Glucophage) 500 mg tablet Take by mouth every 12 hours.Active magnesium oxide 500 mg magnesium tablet Take 1 tablet (500 mg) by mouth once daily.Active nitroglycerin (Nitrostat) 0.[address] 1 tablet (0.4 mg) under the tongue every 5 minutes if needed for chest pain.Active vit C/E/Zn/coppr/lutein/zeaxan (PRESERVISION AREDS-2 ORAL) Take by mouth.Active mirabegron (Myrbetriq) 50 mg tablet extended release 24 hr 24 hr tablet 1 tablet (50 mg) once daily.5Active cyanocobalamin (Vitamin B-12) 1,000 mcg tablet Take 1 tablet (1,000 mcg) by mouth once daily.Active atorvastatin (Lipitor) 80 mg tablet Indications:Mixed hyperlipidemiaTake 1 tablet (80 mg) by mouth once daily at bedtime. 90 tablet ctive bumetanide (Bumex) 1 mg tablet Indications:Lower extremity edemaTake 1 tablet (1 mg) by mouth once daily. 90 tablet ctive dapagliflozin propanediol (Farxiga) 10 mg tablet Indications:Ischemic cardiomyopathyTake 1 tablet (10 mg) by mouth once daily. 90 tablet ctive Eliquis 5 mg tablet Indications:Permanent atrial fibrillation (Multi),FDC current use of 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 therapyTake 1 tablet (5 mg) by mouth 2 times a day. 180 tablet ctive metoprolol succinate XL (Toprol-XL) 25 mg 24 hr tablet Indications:Essential hypertensionTake 1 tablet (25 mg) by mouth once daily in the morning. Take before meals. 90 tablet ctive potassium chloride CR 10 mEq ER tablet Indications:Ischemic cardiomyopathy,Essential hypertensionTake 1 tablet (10 mEq) by mouth once daily. Do not crush, chew, or split. 90 tablet ctive spironolactone (Aldactone) 25 mg tablet Indications:Essential (primary) hypertensionTake 1 tablet (25 mg) by mouth once daily. 90 tablet ctive valsartan (Diovan) 40 mg tablet Indications:Essential hypertensionTake 1 tablet (40 mg) by mouth once daily. 90 tablet ctive aspirin 81 mg EC tablet Indications:Two-vessel coronary artery diseaseTake 2 tablets (162 mg) by mouth once daily.ctive clopidogrel (Plavix) 75 mg tablet Indications:Coronary artery disease of [place] artery of [place]ukee heart with stable angina pectorisTAKE 1 TABLET BY MOUTH DAILY 180 tablet Discontinued(Therapy completed) Active Problems ProblemNoted DateDiagnosed DateTraumatic hematoma of left upper arm04/08/2025 Never smoked yjhxzio7103/10/2024Two-vessel coronary artery lwnfmxm3301/22/2024 Assessment & Plan (01/23/2024 8:48 AM EDT): January 13, 2024 ACS admit at [facility] PCI/Synergy Cath report documents: Large OM1 80-90% with plans to intervene if continued symptoms RCA normal LVEF 45% Ischemic ydzzddgqasxfro78/31/2024 Assessment & Plan (01/23/2024 8:49 AM EDT): ICM HF borderline EF 45% December 2023 cardiac cath Mixed gzapdcpiwkwuny87/31/2024 Assessment & Plan (01/23/2024 8:49 AM EDT): Tolerating addition high intensity statin Shortness of ckegtc8812/24/2023 Assessment & Plan (01/23/2024 8:51 AM EDT): [...] last couple months No benefit from inhaler FDC current use of 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 greteyr3009/23/2023 Assessment & Plan (01/23/2024 8:50 AM EDT): CHADS VASc 5 anticoagulated full dose Eliquis age 68, weight 283 Denies bleeding diatheses Assessment & Plan (12/24/2023 10:31 AM EDT): CHADS VASc 3 chronically anticoagulated full dose Eliquis age 68, weight 141 kg Denies bleeding diatheses Essential ptvuwlcymaek08/01/2024 Assessment & Plan (01/23/2024 8:47 AM EDT): optimal in office Assessment & Plan (12/24/2023 10:30 AM EDT): Optimal in office BMI 40.0-44.9, adult09/23/2023 Assessment & Plan (01/23/2024 8:50 AM EDT): Weight is down 25 pounds from last office visit Assessment & Plan (12/24/2023 10:31 AM EDT): Weight is up 11 pounds, no overt volume overload Qmrmcs7909/05/2023iabetes ztebwkez30/14/2024Lower extremity edema09/05/2023 Assessment & Plan (12/24/2023 9:07 AM EDT): Chronic venous stasis changes Permanent atrial adznsqszwtjm93/14/2024 Assessment & Plan (01/23/2024 8:47 AM EDT): Chronic atrial fib with treatment strategy rate control Assessment & Plan (12/24/2023 10:30 AM EDT): Chronic atrial fibrillation with treatment strategy rate control on metoprolol Resolved Problems ProblemNoted DateDiagnosed DateResolved DateBenign essential HTN09/05/2023 12/24/2023 Encounters DateTypeDepartmentCare SrtlGkymymywtqn07/16/2025 10:50 AM EDTOffice Visit [address] [place] [address] Stacey Varela MD Two-vessel coronary artery disease (Primary Dx); Permanent atrial fibrillation (Multi); Mixed hyperlipidemia; Ischemic cardiomyopathy; Essential hypertension; terminal carman current use of 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 therapy; BMI 40.0-44.9, adult (Multi); Shortness of breath; Lower extremity edema; Never smoked tobacco; Traumatic hematoma of left upper arm, sequela Discharge Disposition: Home04/08/2025Travelfrom Last 3 Months Immunizations ImmunizationAdministration DatesNext DuePfizer Purple Cap JSNC-QvC-222/01/2021, 09/09/2020,08/19/2020Tdap vaccine, age 7 year and older (BOOSTRIX, ADACEL) 04/05/2025 Family History Medical HistoryRelationNameCommentsBrain cancerBrotherCancerFatherDIABETICMother Heart failureMotherHypertensionMotherRelationNameStatusCommentsBrotherFather Mother Social History Tobacco UseTypesPacks/DayYears UsedDateSmoking Tobacco: NeverSmokeless Tobacco: Never Tobacco Cessation:Counseling Given: Not Answered Alcohol UseStandard Drinks/WeekCommentsNever0 (1 standard drink = 0.6 oz pure alcohol)Sex and Gender InformationValueDate RecordedSex Assigned at BirthNot on fileLegal TirGort35/25/2022 9:10 PM ESTGender IdentityNot on fileSexual OrientationNot on file Last Filed Vital Signs Vital SignReadingTime TakenCommentsBlood Ehbroiku10/2810 10:00 AM EDT Aikis772904/08/2025 9:42 AM EDTTemperature--Respiratory Rate--Oxygen Saturation-- Inhaled Oxygen Concentration--Fwfirl035 kg (281 lb)04/08/2025 9:42 AM EDTHeight 172.7 cm (5' 8 )04/08/2025 9:42 AM EDTBody Mass Index42.7304/08/2025 9:42 AM EDT Plan of Treatment DateTypeDepartmentCare Team (Latest Contact Info)Nvkylpvwgxr77/30/2026 10:30 AM EDTOffice Visit [place] [address] [place] [address] Stacey Varela MD [address] [facility] [address] [place] [address] Health MaintenanceDue DateLast DoneCommentsCT Vjomwsjhlgsw1955Creatinine Level1955Diabetes: Hemoglobin A1C1955Diabetes: Urine Protein Xvcxzbcbv1955FIT-DNA (Cologuard)1955FIT1955Potassium Level 1955Faolygfjkzify1955MMR Vaccines (1 of 1 - Standard series) 1956Hepatitis C Tpvznqkba61/07/1973Pneumococcal Vaccine (1 of 2 - PCV) 1974PSA Prostate Cancer Jyydgmqay70/07/2005RSV High Risk: (Elderly (60+) or Population) (1 - Risk 50-74 years 1-dose series)2005Zoster Vaccines (1 of 2)2005Medicare Annual Wellness Visit (AWV)03/05/2018 03/04/20173639Sbazsxxwvscoey96/12/202103/12/2020, 09/03/2019Diabetes: Retinopathy Acffctgjk78/Lipid Panel/Influenza Vaccine (#1)2025OVID-19 Vaccine (4 - season)/06/2020, 09/09/2020, 08/19/20204579Eqvxuaxayef74Colorectal Cancer Screening 05/13/2029DTaP/Tdap/Td Vaccines (2 - Td or Tdap)Welcome to Medicare NgiovXfyngvmwceea07/11/2017HIB VaccinesAged OutNo longer eligible based on patient's age to complete this topicHPV VaccinesAged OutNo longer eligible based on patient's age to complete this topicHepatitis A VaccinesAged OutNo longer eligible based on patient's age to complete this topicHepatitis B VaccinesAged OutNo longer eligible based on patient's age to complete this topic IPV VaccinesAged OutNo longer eligible based on patient's age to complete this topicMeningococcal VaccineAged OutNo longer eligible based on patient's age to complete this topicRotavirus VaccinesAged OutNo longer eligible based on patient's age to complete this topic Procedures Procedure NamePriorityDate/TimeAssociated DiagnosisCommentsECHOCARDIOGRAMRoutine 09/03/2019 from Last 3 Months or Most Recently Relevant to Health Maintenance Results * Echocardiogram (09/03/2019)Specimen (Source)Anatomical Location / Laterality Collection Method / VolumeCollection TimeReceived Time09/03/2019 [facility] RADIOLOGY SYSTEM - 09/03/2019 12:00 AM EDT ?[address], [address] [facility], [place], [place] [address] ? TRANSTHORACIC ECHOCARDIOGRAM REPORT Patient Name: ? HUANG QUINTANA Reading Physician: ?? [id number] Vel Orosco MD Study Date: ? 09/03/2019 ?Referring Physician: [id number] Orosco MD MRN/PID: ?[id number] ? PCP: Accession/Order#: [id number] ?Department Location: [facility] [place] Date of : ?1955 ?Fellow: Gender: ? M ?Nurse: Admit Date: ?Budget Record Clerk: ? Linda Gray RDCS, RVT Height: ? 175.26 cm ?CC Report to: Weight: ? 140.62 kg ?Study Type: ?Echocardiogram BSA: ?2.49 m2 Blood Pressure: 112 /82 mmHg Diagnosis/ICD: I48.21-Permanent AFib Indication: ?Diabetes, HTN, Asthma, Morbid Obesity Procedure/CPT: Echo Complete w Full Doppler-[id number] Study Detail: The following Echo studies were performed: 2D, M-Mode, Doppler and ?color flow. Optison used as a contrast agent for endocardial ?border definition. Total contrast used for this procedure was 0.7 ?mL via IV push. PHYSICIAN INTERPRETATION: Left Ventricle: The left ventricular systolic function is normal, with an estimated ejection fraction of 65%. There are no regional wall motion abnormalities. The left ventricular cavity size is normal. The left ventricular septal wall thickness is mildly increased. There is mildly increased left ve ntricular posterior wall thickness. Spectral Doppler shows a [...] visualized. There is no indication of pulmonic valveregurgitation. Pericardium: There is no pericardial effusion noted. Aorta: The aortic root is normal. CONCLUSIONS: 1. The left ventricular systolic function is normal with a 65% estimated ejection fraction. QUANTITATIVE DATA SUMMARY: 2D MEASUREMENTS: ? Normal Ranges: Ao Root d: ? 2.70 cm ?? (2.0-3.7cm) LAs: ? 3.40 cm ?? (2.7-4.0cm) RVIDd: ? 3.80 cm ?? (0.9-3.6cm) IVSd: ?1.20 cm ?? (0.6-1.1cm) LVPWd: ? 1.10 cm ?? (0.6-1.1cm) LVIDd: ? 4.60 cm ?? (3.9-5.9cm) LVIDs: ? 3.40 cm LV Mass Index: 77.5 g/m2 LV % FS ?26.1 % LV SYSTOLIC FUNCTION BY 2D PLANIMETRY (MOD): ?Normal Ranges: EF-A4C View: 71.2 % (>55%) LV DIASTOLIC FUNCTION: ?Normal Ranges: MV Peak E: 0.95 m/s (0.7-1.2 m/s) MITRAL VALVE: ? Normal Ranges: MV Vmax: 1.02 m/s (<1.3m/s) MV peak P.2 mmHg (<5mmHg) MV mean P.0 mmHg (<48mmHg) AORTIC VALVE: ?Normal Ranges: AoV Vmax: 1.10 m/s (<1.7m/s) AoV Peak P.8 mmHg (<20mmHg) AoV Mean PG: ? 3.0 mmHg (1.7-11.5mmHg) LVOT Max Javier: 0.95 m/s (<1.1m/s) AoV VTI: ? 22.20 cm (18-25cm) LVOT VTI: ?19.40 cm LVOT Diameter: ? 1.80 cm ??(1.8-2.4cm) AoV Area, VTI: ? 2.22 cm2 (2.5-5.5cm2) AoV Area,Vmax: ? 2.19 cm2 (2.5-4.5cm2) AoV Dimensionless Index: 0.87 TRICUSPID VALVE/RVSP: ?Normal Ranges: Peak TR Velocity: 2.30 m/s RV Syst Pressure: 26.2 mmHg (< 30mmHg) PULMONIC VALVE: ? Normal Ranges: PV Max Javier: 0.8 m/s ??(0.6-0.9m/s) PV Max PG: ??2.5 mmHg [id number] Vel Orosco MD Electronically signed on 09/03/2019 at 4:48:40 PM Final Procedure Note Conversion, Syngo - 07/27/[address], [address], [place] [address] TRANSTHORACIC ECHOCARDIOGRAM REPORT Patient Name: HUANG QUINTANA Reading Physician: [id number] Cortez MD Study Date: 09/03/2019 Referring Physician: [id number] Cortez MD MRN/PID: [id number] PCP: Accession/Order#: [id number] Department Location: [facility] Date of : 1955 Fellow: Gender: M Nurse: Admit Date: Budget Record Clerk: Linda Gray [facility],T Height: 175.26 cm CC Report to: Weight: 140.62 kg Study Type: Echocardiogram BSA: 2.49 m2 Blood Pressure: 112 /82 mmHg Diagnosis/ICD: I48.21-Permanent AFib Indication: Diabetes, HTN, Asthma, Morbid Obesity Procedure/CPT: Echo Complete w Full Doppler-[id number] Study Detail: The following Echo studies were [...] 0.8 m/s (0.6-0.9m/s) PV Max P.5 mmHg [id number] Vel Orosco MD Electronically signed on 09/03/2019 at 4:48:40 PM Final Authorizing ProviderResult TypeResult StatusSyngo ConversionCV ECHO PROCEDURES Final ResultPerforming OrganizationAddressCity/State/ZIP CodeWis[facility] [place] Number [facility] [address] [place] [address] from Last 3 Months or Most Recently Relevant to Health Maintenance Insurance Care Teams Team MemberRelationshipSpecialtyStart DateEnd Date Paty Pierre, MATURITY CHECKER-PERFUSIONIST [address] [place] [place] [address] PCP - Aishqcn83/16/25
--- OUTSIDE RECORDS SUMMARY | 2025-04-27 11:31 | XMS_ITS | Clinical Summary ---
Author Organization [facility] Healthcare Address [address] [place] [address] Care Team Providers Care Fuel House Attendant Name Role Phone Angus Lopez MD Primary Care Provider [phone] Allergies No known active allergies Medications MedicationSigDispense QuantityRefillsLast FilledStart DateEnd DateStatus apixaban (Eliquis) 5 MG tablet Take 5 mg by mouth in the morning and 5 mg before bedtime.Active torsemide (Demadex) 20 MG tablet Take 10 mg by mouth DailyActive magnesium oxide 500 MG tablet Take 500 mg by mouth in the morning.Active metoprolol tartrate (Lopressor) 25 MG tablet Take 25 mg by mouth in the morning and 25 mg before bedtime.08/19/2023ctive spironolactone (Aldactone) 25 MG tablet Take 25 mg by mouth DailyActive Ascorbic Acid (vitamin C) 1000 MG tablet Take 1,000 mg by mouth 1 (one) time each day at the same timeActive glucose blood (True Metrix Blood Glucose Test) test strip 1 each by Other route if neededActive albuterol HFA 90 mcg/act inhaler Inhale 1 puff every 6 (six) hours if needed for wheezing or shortness of breath Active sennosides (Senokot) 8.6 MG tablet Take 1 tablet by mouth in the morning and 1 tablet before bedtime.Active tolterodine LA (Detrol LA) 4 MG 24 hr capsule Indications:Overactive BladderTake 4 mg by mouth Daily Do not crush, chew, or split.Active metFORMIN (Glucophage) 500 MG tablet Take 500 mg by mouth in the morning and 500 mg in the evening. Take with meals. Active valsartan (Diovan) 40 MG tablet Take 40 mg by mouth DailyActive dapagliflozin (Farxiga) 10 MG Take 10 mg by mouth DailyActive clopidogrel (Plavix) 75 MG tablet Take 75 mg by mouth DailyActive LORazepam (Ativan) 1 MG tablet Indications:Memory impairmentTake 1 tablet (1 mg) by mouth 1 time for 1 dose 1 tablet 03/16/2024ctive Additional Information Patient not taking.Reported on 06/02/2024 nitroglycerin (Nitrostat) 0.[address] 0.4 mg under the tongue every 5 (five) minutes if needed for chest pain Active potassium chloride ER (Micro-K) 10 MEQ ER capsule Take 10 mEq by mouth in the morning and 10 mEq before bedtime. Do not crush or chew..Active bumetanide (Bumex) 1 MG tablet Take 1 mg by mouth Daily05/04/2024ctive atorvastatin (Lipitor) 80 MG tablet Take 80 mg by mouth at mpiyeqt5405/04/2024ctive Active Problems ProblemNoted DateDiagnosed DateDevelopmental yhtcetboqp23/23/2024ermanent atrial jzcringxciqh68/11/2024lass 3 severe obesity due to excess calories with serious comorbidity and body mass index (BMI) of45.0 to 49.9 in adult10/03/2023 Primary sgrvhqziikyi55/11/2024OSA (obstructive sleep apnea)10/03/2023edal edema 10/03/2023Venous insufficiency of both lower nyhysxwstok46/11/2024Type 2 diabetes mellitus without complication, without long-term current use of insulin 10/03/20233727Vrsabcjtcwtsx81/11/2024Macular uqhslxesiixo18/11/2024 Family History RelationNameStatusCommentsFatherDeceasedMotherDeceased Social History Tobacco UseTypesPacks/DayYears UsedDateSmoking Tobacco: NeverSmokeless Tobacco: Never Tobacco Cessation:Counseling Given: Yes Alcohol UseStandard Drinks/WeekCommentsDefer0 (1 standard drink = 0.6 oz pure alcohol)Sex and Gender InformationValueDate RecordedSex Assigned at BirthNot on fileLegal GdqCtjf1409/05/2022 6:47 PM EDTGender IdentityNot on fileSexual OrientationNot on file Last Filed Vital Signs Vital SignReadingTime TakenCommentsBlood Dgiwmkav879/7704 9:22 AM EDT Acrbd1139 9:22 AM UHARaxaebephii88.6 ??C (97.8 ??F)10/03/2023 10:06 AM EDTRespiratory Zcis832701/05/2025 11:32 AM EDTOxygen Iqrheointd04%06/02/2024 12:29 PM ESTInhaled Oxygen Concentration--Gaaonl085 kg (261 lb)01/05/2025 11:32 AM EDT Exzwbk044.7 cm (5' 8 )01/05/2025 11:32 AM EDTBody Mass Index39.68001/05/2025 11:32 AM EDT Plan of Treatment Health MaintenanceDue DateLast DoneCommentsCT Axftrxszxbmg1955FIT-DNA 1955FIT1955FOBT1955 9579Yzdswwydqvdbk1955DTaP/Tdap/Td Vaccines (1 - Tdap)2Pneumococcal Vaccine: 65+ Years (1 of 1 - PCV) 2005COVID-19 Vaccine ( - season), 09/09/2020, 08/19/2020, Additional history existsInfluenza Vaccine (#1)5Colonoscopy Colorectal Cancer Vsnvnhpzk88/20/2029HIB VaccinesAged OutNo longer eligible based on patient's age to complete this topicHPV VaccinesAged OutNo longer eligible based on patient's age to complete this topicHepatitis A VaccinesAged OutNo longer eligible based on patient's age to complete this topic Hepatitis B VaccinesAged OutNo longer eligible based on patient's age to complete this topicIPV VaccinesAged OutNo longer eligible based on patient's age to complete this topicMeningococcal B VaccineAged OutNo longer eligible based on patient's age to complete this topicMeningococcal VaccineAged OutNo longer eligible based on patient's age to complete this topicRotavirus VaccinesAged Out No longer eligible based on patient's age to complete this topic Insurance Advance Directives TypeDate RecordedPatient RepresentativeExplanationPower of Attorney10/03/2023 10:08 AMPower of [employer] Care Teams Team MemberRelationshipSpecialtyStart DateEnd Date Angus Lopez MD [address] [place] [address] PCP - GeneralFamily Medicine10/03/23
--- OUTSIDE RECORDS SUMMARY | 2025-04-27 11:40 | XMS_ITS | CCD ---
Author Organization [facility] [place] [facility] Team Providers Care Biostatistician Name Role Phone BANKS, KARISSA Unavailable Unavailable [...] Muñoz II, Dr. Vel Celaya Referring Unavailable Toni II, Dr. Vel Celaya Attending Unavailable Toni II, Dr. Vel Celaya Referring Unavailable McGuinn II, Dr. Vel Celaya Attending Unavailable Jesse Gonzales Primary Care Physician [phone] Jesse Gonzales PA-C Primary Care Provider Ina Pierre Primary Care Physician [phone] SALEM, BASHAR Referring Unavailable MARGARET, KD Referring Unavailable BENY, LAUREANO Referring Unavailable DIAB, CAYLA Referring Unavailable MARGARET, KD Admitting Unavailable GABY FLOREZ Attending Unavailable MARGARET, KD Referring Unavailable MARGARET, KD Referring Unavailable DO Kyleigh Maciel Attending Provider NON STAFF Primary Care Provider UnavailIna De Attending Unavailable Ina Pierre Admitting Unavailable Avi Lopez MD Primary Care Provider Avi Lopez MD Unavailable [phone] DO Avi Padgett Attending Provider DO Avi Padgett Referring Provider MD Joseph Maurer Primary Care Provider NON STAFF Primary Care Unavailable Kyleigh Maciel Attending Unavailable Kyleigh Maciel Admitting Unavailable Joseph Maurer Primary Care Unavailable Avi Padgett Referring Unavailab Avi Mcneal Attending Unavailab Avi Mcneal Admitting Unavailab salina Lopez MD, Avi Unavailable [phone] Joseph Maurer MD Primary Care Provider [phone] Leroy, Ina Nagel Attending Unavailable Leroy, Ina Nagel Attending Unavailable Leroy, Ina Nagel Admitting Unavailable Leroy, Ina Nagel Attending Unavailable Leroy, Ina Nagel Admitting Unavailable Leroy, Ina Nagel Attending Unavailable Leroy, Ina Nagel Attending Unavailable Leroy, Ina Nagel Attending Unavailable Leroy, Ina Nagel Attending Unavailable Leroy, Ina Nagel Attending Unavailable Leroy, Ina Nagel Attending Unavailable Joseph Maurer MD Primary Care Provider Leroy, Ina Nagel Admitting Unavailable Leroy, Ina Nagel Attending Unavailable Karissa BANKS Attending Unavailable Karissa BANKS Admitting Unavailable DOLCE, EMRE Malik Attending Unavailable DOLCE, EMRE Malik Attending Unavailable DOLCE, EMRE Malik Attending Unavailable DAYRONAVI Attending Unavailable JOSE MOULTON Attending Unavailable AVI PADGETT Referring Unavailable JOSE WHITNEY Attending Unavailable DOLCEEMRE Attending Unavailable JABARIBEJOSE PEDROZA Attending Unavailable GILLMORHALEIGH Attending Unavailable Leroy, Ina Nagel Attending Unavailable Leroy, Ina L Attending Unavailable Leroy, Ina Nagel Attending Unavailable Leroy, Ina Nagel Attending Unavailable Karissa BANKS Attending Unavailable Joseph Maurer Attending Unavailable Joseph Maurer Referring Unavailable Avi Padgett Admitting Unavaila ble Avi Padgett. Attending Unavaila ble Leroy, Ina Nagel Admitting Unavailable Leroy, Ina Nagel Attending Unavailable Leroy, Ina Nagel Attending Unavailable OrzechRuth Attending Unavailable Karissa BANKS Admitting Unavailable Karissa BANKS Attending Unavailable Leroy, Ina Nagel Admitting Unavailable Leroy, Ina Nagel Attending Unavailable Leroy, Ina Nagel Attending Unavailable Leroy, Ina Nagel Attending Unavailable Leroy Ian HINES Primary Care Provider BRADLEY ANTONIO Attending Unavailable BRADLEY ANTONIO Referring Unavailable LEROYINA MARTINEZ Primary Care Unavailable BRADLEY ANTONIO Attending Unavailable BRADLEY ANTONIO Referring Unavailable JOSEPH MAURER Primary Care Unavailable Leroy, Ina Nagel Attending Unavailable Orzech, Ruth Moore Attending Unavailable Orzech, Ruth X Attending Unavailable Leroy, Ina Nagel Admitting Unavailable Leroy, Ina Nagel Attending Unavailable Leroy, Ina Nagel Attending Unavailable Leroy, Ina Nagel Attending Unavailable Leroy, Ina Nagel Attending Unavailable Medications Current Medications MedicationDrug Class(es)DatesSig (Normalized)Sig (Original)[id number] 200 actuat albuterol 0.09 mg/actuat metered dose inhaler (20 sources)beta2-Adrenergic AgonistStart: 92-26-0256Turftptbq Sulfate Active 1 INH INHALATION Daily February 04, 2024 12:00amStart: 97-52-8616Gjhtqrdla HFA Inhalation, q6hr, Refills(s) 0 Start Date: 06/26/21 Status: Orderedalbuterol (Ventolin HFA) 90 mcg/actuation inhaler Inhale. Activetake 1 puff(s) by inhalation every six hours for wheezingalbuterol HFA 90 mcg/act inhaler Inhale 1 puff every 6 (six) hours if needed for wheezing or shortness of breath Active Ventolin HFA 108 (90 Base) MCG/ACT Inhalation Aerosol Solution as directed Quantity: 0 Refills: 0 Ordered: 03-Jan-2022 DO ActiveAlbuterol (Eqv-Ventolin HFA) 90 mcg/inh inhalation aerosol (11 sources)Start: 11-63-7406Xziybepxe (Eqv-Ventolin HFA) 90 mcg/inh inhalation aerosol See Instructions, 18 EA, Refill(s) 1, INHALE 2 PUFFS BY MOUTH EVERY 4 HOURS NEEDED, [facility], 175.3, cm, 09/11/24 11:46:00 EDT, Height/Length Dosing, 123, kg, 09/11/24 11:46:00 EDT, Weight Dosing Start Date: 10/12/24 Status: Ordered Quantity: 18.0 Unit: EA Repeat number: 2Start: 46-47-7941Vhuhklxbe (Eqv-Ventolin HFA) 90 mcg/inh inhalation aerosol See Instructions, 18 EA, Refill(s) 5, INHALE 2 PUFFS BY MOUTH EVERY 4 HOURS NEEDED, [id number], 174.5, cm, 11/26/23 13:13:00 EDT, Height/Length Dosing, 139.5, kg, 11/26/23 13:13:00 EDT, Weight Dosing Start Date: 12/23/23 Status: Orderedapixaban 5 mg oral tablet (20 sources)Factor Xa InhibitorStart: 09-06-2015 End: 20-85-7431yvkb 1 tablet by mouth twice dailyEliquis 5 mg tablet Indications: Permanent atrial fibrillation (Multi) , [facility] current use of an ticoagulant therapy Take 1 tablet (5 mg) by mouth 2 times a day. 180 tablet 3 10/14/2024 10/14/2025ctiveascorbic acid 1000 mg oral tablet (20 sources)Vitamin Ctake 1 tablet by mouth once dailyascorbic acid (Vitamin C) 1,000 mg tablet Take 1 tablet (1,000 mg) by mouth once daily. Activeaspirin 81 mg delayed release oral tablet (7 sources)Platelet Aggregation Inhibitor, Nonsteroidal Anti-inflammatory Drug Start: 04-08-2025 End: 07-62-5732ctrs 2 tablets by mouth once dailyaspirin 81 mg EC tablet Indications: Two-vessel coronary artery disease Take 2 tablets (162 mg) by mouth once daily. 04/08/2025 04/08/2026 ActiveStart: 88-58-9200ogdx 1 tablet by mouth once dailyAspirin Active 1 TAB PO Daily February 04, 2024 12:00amStart: 64-36-1236ipthvgu 81 mg, Chewed, Daily, Refills(s) 0 Start Date: 01/16/24 Status: Ordered End: 39-41-1380qqlg 1 tablet by mouth once dailyaspirin 81 mg EC tablet Take 1 tablet (81 mg) by mouth once daily. 09/22/2024 Discontinued (Therapycompleted) atorvastatin 80 mg oral tablet (20 sources)HMG-CoA Reductase InhibitorStart: 01-16-2024 End: 04-60-3184uwem 1 tablet by mouth once daily at bedtimeatorvastatin (Lipitor) 80 mg tablet Indications: Mixed hyperlipidemia Take 1 tablet (80 mg) by mouth once daily at bedtime. 90 tablet 3 10/14/2024 10/14/2025 Active brompheniramine maleate 0.4 mg/ml / dextromethorphan hydrobromide 2 mg/ml / pseudoephedrine hydrochloride 6 mg/ml oral solution (3 sources)alpha-Adrenergic Agonist, Uncompetitive E-pwfekr-O-aspartate Receptor Antagonist, Sigma-1 AgonistStart: 94-47-9751aipw 5 mL by mouth four times daily for cough and congestionBromfed DM oral syrup 5 mL, Oral, QID for cough and congestion, 200 mL, Refill(s) 0, [facility]/pharmacy #[id number], 174, cm, 05/18/24 9:55:00 EST, Height/Length Dosing, 122.2, kg, 05/18/24 9:55:00 EST, Weight Dosing Start Date: 05/18/24 Status: Orderedbumetanide 1 mg oral tablet (20 sources)Loop DiureticStart: 01-16-2024 End: 63-66-1557inpm 1 tablet by mouth once dailybumetanide (Bumex) 1 mg tablet Indications: Lower extremity edema Take 1 tablet (1 mg) by mouth once daily. 90 tablet 3 10/14/2024 10/14/2025 ActiveStart: 41-38-5883jwpa 1 tablet by mouth twice dailybumetanide 1 mg Tab 1 mg = 1 tab(s), Oral, BID, Refills(s) 0, diuretic/water pill Start Date: 05/12/19 Status: Orderedclopidogrel 75 mg oral tablet (20 sources)P2Y12 Platelet InhibitorStart: 01-16-2024 End: 75-65-3698ckyr 1 tablet by mouth once dailyclopidogrel (Plavix) 75 mg tablet Indications: 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 TAKE 1 TABLET BY MOUTH DAILY 180 tablet 3 12/18/2024 04/08/2025 Discontinued (Therapy completed)dapagliflozin 10 mg oral tablet (20 sources)Sodium-Glucose Cotransporter 2 InhibitorStart: 01-16-2024 End: 18-71-5241epun 1 tablet by mouth once dailydapagliflozin propanediol (Farxiga) 10 mg tablet Indications: Ischemic cardiomyopathy Take 1 tablet(10 mg) by mouth once daily. 90 tablet 3 10/14/2024 10/14/2025 ActiveDulera 100 mcg-5 mcg/inh inhalation aerosol (16 sources)Start: 80-59-4389Fczmev 100 mcg-5 mcg/inh inhalation aerosol See Instructions, 13 gm, Refill(s) 11, USE 2 INHALATIONS TWICE A DAY, [facility], 175.3, cm, 09/11/24 11:46:00 EDT, Height/Length Dosing, 123, kg, 09/11/24 11:46:00 EDT, Weight Dosing Start Date: 11/13/24 Status: Ordered Quantity: 13.0 Unit: g Repeat number: 1Start: 41-47-7432occm 2 puff(s) by inhalation twice dailyDulera 100 mcg-5 mcg/inh inhalation aerosol 2 puff(s), Inhalation, BID, 13 gram, Refill(s) 0, [facility] #[id number], 174, cm, 05/04/24 15:26:00 EST, Height/Length Dosing, 120.6, kg, 05/04/24 15:26:00 EST, Weight Dosing Start Date: 05/05/24 Status: OrderedStart: 11-22-2023 End: 63-21-9124rbjx 2 puff(s) by inhalation twice dailyDulera 100 mcg-5 mcg/inh inhalation aerosol 2 puff(s), Inhalation, BID for 30 day(s), 13 gm, Refill(s) 11, [facility]/pharmacy #[id number], 175, cm, 11/22/23 10:58:00 EDT, Height/Length Dosing, 140.4, kg, 11/22/23 10:58:00 EDT, Weight Dosing Start Date: 11/22/23 Stop Date: 11/16/24 Status: Orderedesomeprazole 20 mg delayed release oral capsule (1 source)Proton Pump InhibitorStart: 47-03-1084dvgmynjmxqag 20 mg Cap-DR ORAL, 0 Refill(s), Take by mouth., Refills(s) 0 Start Date: 01/20/24 Status: Ordered fluticasone (1 source)CorticosteroidStart: 33-58-8971rmodidgyfpw 50 mcg, Inhalation, PRN Allergy symptoms, Refills(s) 0 Start Date: 01/16/24 Status: OrderedFluticasone Propion-Salmeterol (14 sources)Corticosteroid, beta2-Adrenergic AgonistStart: 27-31-8389Eahetkurnzp Propion-Salmeterol (Advair Hfa) 115-21 mcg/actuation HFA aerosol inhaler Active 2 INH INHALATION Twice daily February 04, 2024 12:00amtake 2 puff(s) by inhalation twice dailyfluticasone propion-salmeteroL (Advair HFA) 115-21 mcg/actuation inhaler Inhale 2 puffs 2 times a day. ActiveDulera (4 sources)Corticosteroid, beta2-Adrenergic AgonistStart: 41-89-0194Fofegw Inhalation, BID, Refill(s) 0 Start Date: 06/26/21 Status: Ordered End: 47-27-6737annr 2 puff(s) by mouth twice dailymometasone-formoterol (Dulera) 100-5 mcg/actuation inhaler Inhale 2 puffs 2 times a day. Rinse mouth with water after use to reduce aftertaste and incidence of candidiasis. Do not swallow. 09/22/2024Discontinued (Therapy completed)Freestyle Marshal 2 Flash Glucose Monitoring 14 Day System ([place]) (4 sources)Start: 71-75-9984Zpzahhmuq Marshal 2 Flash Glucose Monitoring 14 Day System ([place]) Freestyle Marshal 2 Flash Glucose Monitoring 14 Day System ([place]), See Instructions, 1 EA, 0, Freestyle Marshal 2 Flash Glucose Monitoring 14 Day System ([place]), [facility]/pharmacy #[id number], Supply, 174.5, cm, 11/26/23 13:13:00 EDT, Height/Length Dosing, 139.5, kg, 11/26/23 13:13:00 EDT, Weight Dosing Start Date: 11/29/23 Status: Orderedfreestyle marshal 2 sensors (11 sources)Start: 47-77-5444kpgcqnrds marshal 2 sensors freestyle marshal 2 sensors, See Instructions, 12 EA, 6, check blood sugar 4 times per day, [id number], Supply, 174, cm, 02/17/24 9:03:00 EDT, Height/Length Dosing, 129.2, kg, 02/17/24 9:03:00 EDT, Weight Dosing Start Date: 03/11/24 Status: Ordered Quantity: 12.0 Unit: EA Repeat number: 7 Indications: Type 2 diabetes mellitus without complications;Start: 80-84-9205orbeldmsf marshal 2 sensors freestyle marshal 2 sensors, See Instructions, 12 EA, 6, check blood sugar 4 times per day, [id number], Supply, 174, cm, 02/17/24 9:03:00 EDT, Height/Length Dosing, 129.2, kg, 02/17/24 9:03:00 EDT, Weight Dosing Start Date: 03/11/24 Status: OrderedStart: 92-58-1760yxitpkmsx marshal 2 sensors freestyle marshal 2 sensors, See Instructions, 12 EA, 6, check blood sugar 4 times per day, [facility] #[id number], Supply, 174.5, cm, 11/26/23 13:13:00 EDT, Height/Length Dosing,139.5, kg, 11/26/23 13:13:00 EDT, Weight Dosing Start Date: 11/29/23 Status: OrderedFreestyle Marshal 2 sensors (2 sources)Start: 31-23-9742Vbhjdpnkg Marshal 2 sensors Freestyle Marshal 2 sensors, See Instructions, 6 EA, 11, check BS 4 times aday, [facility], Supply, 174, cm, 08/17/24 10:24:00 EST, Height/Length Dosing, 129.3, kg, 08/17/24 10:24:00 EST, Weight Dosing Start Date: 08/17/24 Status: Ordered Quantity: 6.0 Unit: EA Repeat number: 12 Indications: Other specified health status; Body mass index [BMI] 40.0-44.9, adult; Type 2 diabetes mellitus without complications;Freestyle Marshal 3 Flash Glucose Monitoring 14 Day System (S[place]) (7 sources)Start: 20-90-0804Jjonxrzkk Marshal 3 Flash Glucose Monitoring 14 Day System (Sensor) Freestyle Marshal 3 Flash Glucose Monitoring 14 Day System (Sensor), See Instructions, 6 EA, 1, Freestyle Marshal 3 Flash Glucose Monitoring 14 Day System (Sensor). Replace sensor every 14 days., [id number], Supply, 174, cm, 01/20/24 10:48:00 EDT, Height/Length Dosing, 130, kg, 01/20/24 10:48:00 EDT, Weight Dosing Start Date: 01/20/24 Status: OrderedICaps AREDS oral tablet (4 sources)Start: 94-42-0552ZYken AREDS oral tablet 1 tab(s), Oral, Daily, 30 tab(s), Refill(s) 0 Start Date: 11/26/23 Status: OrderedLORazepam 1 mg oral tablet (20 sources)BenzodiazepineStart: 66-76-2246cshz 1 tablet by mouth onceLORazepam (Ativan) 1 MG tablet Indications: Memory impairment Take 1 tablet (1 mg) by mouth 1 time for 1 dose 1 tablet 03/16/2024 Activemagnesium oxide 500 mg oral tablet (20 sources)Start: 15-05-9504vrei 500 mg by mouth once dailymagnesium oxide 500 mg, Oral, Daily, takes at supper time, Refills(s) 0, Prophylaxis Start Date: 04/26/15 Status: Ordered Repeat number: 1metFORMIN hydrochloride 500 mg oral tablet (20 sources)BiguanideStart: 44-11-4957dpwo 1 tablet by mouth twice daily MetFORMIN (Eqv-Glucophage XR) 500 mg oral tablet, extended release 500 mg = 1 tab(s), Oral, BID, # 180 tab(s), Refills(s) 4, Pharmacy: [facility] #[id number], 175.3, cm, 02/15/25 10:10:00 EDT, Height/Length Dosing, 131.4, kg, 02/15/25 10:10:00 EDT, Weight Dosing Start Date: 03/09/25 Status: Ordered Quantity: 180.0 Unit: tab(s) Repeat number: 5Start: 16-47-2391sdog 500 mg by mouth once daily Metformin Active 500 MG PO Daily February 04, 2024 12:00amStart: 13-52-9676lodb 1 tablet by mouth twice dailyMetFORMIN (Eqv-Glucophage XR) 500 mg oral tablet, extended release See Instructions, TAKE 1 TABLET BY MOUTH TWICE A DAY FOR 90 DAYS, # 180 tab(s), Refills(s) 1, Pharmacy: [facility] #[id number], 175.3, cm, 09/11/24 11:46:00 EDT, Height/Length Dosing, 123, kg, 09/11/24 11:46:00 EDT, Weight Dosing Start Date: 09/22/24 Status: Ordered Quantity: 180.0 Unit: tab(s) Repeat number: 2metFORMIN (Glucophage) 500 mg tablet Take by mouth every 12 hours. Ztrppr16 hr metoprolol succinate 25 mg extended release oral tablet (20 sources)beta-Adrenergic BlockerStart: 02-04-2024 End: 55-05-1412kbbv 1 tablet by mouth once daily before mealtimemetoprolol succinate XL (Toprol-XL) 25 mg 24 hr tablet Indications: Essential hypertension Take 1 tablet (25 mg) by mouth once daily in the morning. Take before meals. 90 tablet 3 10/14/2024 10/14/2025 ActiveStart: 91-19-4353pccc 25 mg by mouth once dailyToprol-XL 25 mg, Oral, Daily, Refills(s) 0 Start Date: 01/16/24 Status: Ordered Repeat number: 1Start: 58-94-9661brel 1 tablet by mouth in the morning metoprolol tartrate (Lopressor) 100 MG tablet Take 100 mg by mouth in the morning and 100 mg beforebedtime. 08/19/2023 ActiveStart: 79-32-5483wgni 1 tablet by mouth twice dailyMetoprolol tartrate 50 mg Tab 50 mg = 1 tab(s), Oral, BID, Refills(s) 0, High blood pressure Start Date: 05/12/19 Status: OrderedMilk of Magnesia (1 source)Start: 84-57-2221Bwej of Magnesia 1,200 mg, Oral, PRN as needed for constipation, Refills(s) 0 Start Date: 01/16/24 Status: Ooueexg39 hr mirabegron 50 mg extended release oral tablet (4 sources)beta3-Adrenergic AgonistStart: 09-11-2024 End: 22-25-4782xifj 1 tablet by mouth once dailymirabegron 50 mg oral tablet, extended release 50 mg = 1 tab(s), Oral, Daily, X 90 day(s), # 90 tab(s), Refills(s) 3, SHAUNA, Pharmacy: [facility], 175.3, cm, 09/11/24 11:46:00 EDT, Height/Length Dosing, 123, kg, 09/11/24 11:46:00 EDT, Weight Dosing Start Date: 10/13/24 Stop Date: 10/08/25 Status: Ordered Quantity: 90.0 Unit: tab(s) Repeat number: 4Nasal Mist (1 source)Start: 65-57-3917Vnfju Mist 2 spray(s), Nasal, Allergy symptoms, Refill(s) 0 Start Date: 01/16/24 Status: Orderednitroglycerin 0.4 mg sublingual tablet (20 sources)Nitrate VasodilatorStart: 72-77-9605Bowlqbdccfetw Active 0.4 MG SUBLINGUAL Q5M February 04, 2024 12:00amStart: 93-03-9300byeugtgqkabxq 0.4 mg, SubLingual, q5min, PRN Chest pain, X 3 dose(s), Refills(s) 0 Start Date: 01/16/24 Status: Ordered Repeat number: 1potassium chloride 10 meq extended release oral tablet (20 sources)Start: 07-03-2024 End: 29-21-8304itbv 1 tablet by mouth once dailypotassium chloride CR 10 mEq ER tablet Indications: Ischemic cardiomyopathy , Essential hypertension Take 1 tablet (10 mEq) by mouth once daily. Do not crush, chew, or split. 90 tablet 3 10/14/2024 10/14/2025 ActiveStart: 81-69-9775sxkc 10 mEq by mouth twice daily Potassium Chloride Active 10 MEQ PO Twice daily February 04, 2024 12:00amStart: 56-07-1278esygnrgvf chloride 10 mEq, Oral, Daily, Refills(s) 0 Start Date: 01/16/24 Status: Ordered Repeat number: 1Start: 21-98-3831tjdbianii chloride 10 mEq, Oral, Daily, Refills(s) 0 Start Date: 01/16/24 Status: OrderedStart: 66-13-8042uuidvjgil chloride 10 mEq, Oral, Every other day, Refills(s) 0 Start Date: 01/16/24 Status: Orderedtake 1 capsule by mouth in the morningpotassium chloride ER (Micro-K) 10 MEQ ER capsule Take 10 mEq by mouth in the morning and 10 mEq before bedtime. Do not crush or chew.. Activetake 1 tablet by mouth once dailypotassium chloride CR 10 mEq ER tablet Take 1 tablet (10 mEq) by mouth once daily. Do not crush, chew, or split. ActivePreserVision AREDS 2 (7 sources)Start: 51-52-6329BfpvopOzqydt AREDS 2 Chewed, BID, Refill(s) 0 Start Date: 03/12/24 Status: Ordered Repeat number: 1Start: 12-66-5087UvxcilNvyizo AREDS 2 Chewed, BID, Refill(s) 0 Start Date: 03/12/24 Status: OrderedRefresh (7 sources)Start: 16-73-8678Wqmvpcz 1 drop(s), Eye-Both, Dry eyes, Refill(s) 0 Start Date: 01/16/24 Status: OrderedSenna Leaves (6 sources)Start: 32-27-7906Oiahx Oral, Once a day (at bedtime), Refill(s) 0 Start Date: 06/04/19 Status: Orderedsennosides, senior living 8.6 mg oral tablet (20 sources)Start: 64-50-6787wlqn 8.6 mg by mouth twice daily as needed for constipationsenna 8.6 mg, Oral, BID, PRN as needed for constipation, Refills(s) 0 Start Date: 01/16/24 Status: Orderedspironolactone 25 mg oral tablet (20 sources)Aldosterone AntagonistStart: 10-14-2024 End: 52-59-6918zwzm 1 tablet by mouth once dailyspironolactone (Aldactone) 25 mg tablet Indications: Essential (primary) hypertension Take 1 tablet(25 mg) by mouth once daily. 90 tablet 3 10/14/2024 10/14/2025 ActiveStart: 76-45-7894dcmx 1 tablet by mouth once dailyspironolactone (Aldactone) 25 mg tablet Indications: Essential (primary) hypertension Take 1 tablet(25 mg) by mouth once daily. 90 tablet 3 09/22/2024 ActiveStart: 06-27-2020 End: 64-79-1314hrbg 1 tablet by mouth once dailyspironolactone 25 mg Tab 25 mg = 1 tab(s), Oral, Daily, Refills(s) 0 Start Date: 06/27/20 Status: Ordered Repeat number: 1Start: 59-53-4406xhem 1 mg by mouth twice dailyspironolactone 25 mg Tab mg tab(s), Oral, BID, Refills(s) 0 Start Date: 06/27/20 Status: Nuymbgv27 hr tolterodine tartrate 4 mg extended release oral capsule (20 sources)Cholinergic Muscarinic AntagonistStart: 08-14-2022 End: 26-57-3212enuw 1 capsule by mouth once dailytolterodine 4 mg Cap-ER 4 mg = 1 cap(s), Oral, Daily, # 90 cap(s), Refills(s) 3, Pharmacy: [facility]/pharmacy #[id number], 174, cm, 05/18/24 9:55:00 EST, Height/Length Dosing, 122.2, kg, 05/18/24 9:55:00 EST, Weight Dosing Start Date: 05/26/24 Status: Orderedtorsemide 10 mg oral tablet (20 sources)Loop DiureticStart: 15-30-2936jedg 10 mg by mouth once daily torsemide 10 mg, Oral, Daily, Refills(s) 0 Start Date: 01/16/24 Status: Ordered Start: 32-88-4929lupd 1 tablet by mouth once dailytorsemide 20 mg Tab 20 mg = 1 tab(s), Oral, Daily, # 30 tab(s), Refills(s) 0 Start Date: 11/22/23 Status: OrderedStart: 11-07-2023 End: 05-38-2202ajjg 0.5 tablet by mouth once dailytorsemide (Demadex) 20 mg tablet Indications: Localized edema Take 0.5 tablets (10 mg) by mouth once daily. 45 tablet 3 11/07/2023 11/06/2024 ActiveStart: 91-59-5656ittn 0.5 tablet by mouth once dailytorsemide (Demadex) 20 mg tablet Take 0.5 tablets (10 mg) by mouth once daily. 0 11/30/2021 Activetake 10 mg by mouth once dailytorsemide (Demadex) 20 MG tablet Take 10 mg by mouth Daily ActiveTussin DM Sugar Free (1 source)Start: 51-98-5355Qinfye DM Sugar Free 10 mL, Congestion, Refill(s) 0 Start Date: 01/16/24 Status: Orderedvalsartan 40 mg oral tablet (20 sources)Angiotensin 2 Receptor BlockerStart: 01-16-2024 End: 67-75-2192kphy 1 tablet by mouth once dailyvalsartan (Diovan) 40 mg tablet Indications: Essential hypertension Take 1 tablet (40 mg) by mouth once daily. 90 tablet 3 10/14/2024 10/14/2025 ActiveVentolin HFA 90 mcg/inh Aerosol (4 sources)Start: 34-65-5168ucce 2 puff(s) by inhalation four times daily Ventolin HFA 90 mcg/inh Aerosol 2 puff(s), Inhalation, QID Shortness of breath or wheezing, Refill(s) 0, COPD Start Date: 05/12/19 Status: OrderedVit C,Z-Cb-Xvfhp-Lutein-Zeaxan (Preservision Areds-2) 250-90-40-1 mg capsule (2 sources)Start: 42-36-5263Ahz C,X-Xs-Lepot-Lutein-Zeaxan (Preservision Areds- 2) 250-90-40-1 mg capsule Active 1 TAB PO Twice daily February 04, 2024 12:00am vit C/E/Zn/coppr/lutein/zeaxan (PRESERVISION AREDS-2 ORAL) (3 sources)vit C/E/Zn/coppr/lutein/zeaxan (PRESERVISION AREDS-2 ORAL) Take by mouth. Activevitamin B12 (11 sources)Vitamin X57Ijoqv: 90-14-9333egmn 1000 ug by mouth once dailyVitamin B12 1,000 mcg, Oral, Daily, Refills(s) 0 Start Date: 01/16/24 Status: Ordered Repeat number:1Start: 68-48-3967dvow 1000 ug by mouth once dailyVitamin B12 1,000 mcg, Oral, Daily, Refills(s) 0 Start Date: 01/16/24 Status: OrderedStart: 93-58-1162tipg 100 ug by mouth once dailyVitamin B12 100 mcg, Oral, Daily, Refills(s) 0 Start Date: 01/16/24 Status: Orderedtake 1 tablet by mouth once dailycyanocobalamin (Vitamin B-12) 1,000 mcg tablet Take 1 tablet (1,000 mcg) by mouth once daily. ActiveVitamin C 500 mg Tab (15 sources)Start: 91-45-1607dcom 1 tablet by mouth once dailyVitamin C 500 mg Tab 500 mg = 1 tab(s), Oral, Daily, Refills(s) 0, Prophylaxis Start Date: 05/12/15Status: Ordered Repeat number: 1Start: 06-38-8871lxlx 1 tablet by mouth once dailyVitamin C 500 mg Tab 500 mg = 1 tab(s), Oral, Daily, Refills(s) 0, Prophylaxis Start Date: 05/12/15Status: OrderedStart: 25-18-0037siti 2 tablets by mouth once dailyVitamin C 500 mg Tab 1,000 mg = 2 tab(s), Oral, Daily, Refills(s) 0, Prophylaxis Start Date: 05/12/15 Status: Ordered Completed/Discontinued Medications MedicationDrug Class(es)DatesSig (Normalized)Sig (Original)Albuterol (Eqv-ProAir HFA) 90 mcg/inh inhalation aerosol (4 sources)Start: 83-54-6504jgbf 8.5 g by inhalation every six hoursAlbuterol (Eqv-ProAir HFA) 90 mcg/inh inhalation aerosol 180 mcg, 2 inh, Inhalation, q6hr, 8.5 gm, Refill(s) 0, [facility] #[id number], 174, cm, 05/14/24 14:26:00 EST, Height/Length Dosing, 121.9, kg, 05/14/24 14:26:00 EST, Weight Dosing Start Date: 05/15/24 Status: Ordered Quantity: 8.5 Unit: g Repeatnumber: 1 Indications: Type 2 diabetes mellitus without complications;Start: 05-15-2024 take 8.5 g by inhalation every six hoursAlbuterol (Eqv-ProAir HFA) 90 mcg/inh inhalation aerosol 180 mcg, 2 inh, Inhalation, q6hr, 8.5 gm, Refill(s) 0, [id number], 174, cm, 05/14/24 14:26:00 EST, Height/Length Dosing, 121.9, kg, 05/14/24 14:26:00 EST, Weight Dosing Start Date: 05/15/24 Status: Ordered Freestyle Marshal 3 sensors (7 sources)Start: 50-67-2120Awhrvsmsp Marshal 3 sensors Freestyle Marshal 3 sensors, See Instructions, 12 EA, 1, change as needed, [id number], Supply, 174, cm, 01/20/24 10:48:00 EDT, Height/Length Dosing, 130, kg, 01/20/24 10:48:00 EDT, Weight Dosing Start Date: 01/20/24 Status: OrderedMagnesium (7 sources)Magnesium 500 MG TABS Take 1 tablet daily Quantity: 0 Refills: 0 Ordered: 03-Jan-2022 DO ActivePreserVision AREDS 2 CAPS (7 sources)PreserVision AREDS 2 CAPS Take 1 capsule twice daily Quantity: 0 Refills: 0 Ordered: 03-Jan-2022 DOActivetwin sized firm extra long mattress for hospital bed (2 sources)Start: 94-34-6632rnmz sized firm extra long mattress for hospital bed twin sized firm extra long mattress for hospital bed, See Instructions, 1 EA, 0, twins sized, firm extra long mattress for hospital bed, Supply Start Date: 05/28/24 Status: Ordered Problems Active Problems Problem ClassificationProblemDateDocumented DateEpisodic/ChronicAcute myocardial infarction (11 sources)Non-ST elevation (NSTEMI) myocardial infarction; Translations: [Myocardial infarction]Onset: 96-29-2458GpmmfeeMhiecftwvzbkqn/social admission (7 sources)Persons encountering health services in other specified circumstances; Translations: [Counseling procedure with explicit context]Onset: 55-83-0647TzgfguefHxjctx (14 sources)Asthma; Translations: [Asthma, unspecified type, unspecified]Onset: 340087-87-2249FhhzbjqJvxxpuu tract disease (15 sources)Common bile duct mqugarpz63-77-4243SzseqbxnDhidkwv dysrhythmias (20 sources)Unspecified atrial fibrillation; Translations: [Permanent atrial fibrillation]Onset: 755333-43-9869LoghbtrHqdfcav obstructive pulmonary disease and bronchiectasis (7 sources)Chronic obstructive lung disease; Translations: [Chronic obstructive pulmonary disease, unspecified]Onset: 97-69-9558UgzdlgeGnsnolyhzz heart failure; nonhypertensive (3 sources)Heart failure; Translations: [Heart failure, unspecified]Onset: 30-81-1899GglbrfiVibigpsg atherosclerosis and other heart disease (20 sources)Chronic ischemic heart disease, unspecified; Translations: [Coronary arteriosclerosis]Onset: 61-77-0765TdkxcauCwqwcqrg atherosclerosis and other heart disease (3 sources)Presence of coronary angioplasty implant and graft; Translations: [Presence of coronary angioplastyimplant and graft]Onset: 94-21-1829Huhbshwj Deficiency and other anemia (2 sources)Anemia in other chronic diseases classified elsewhere; Translations: [Anemia in other chronic diseases classified elsewhere]Onset: 78-01-2850Mwqkihe Developmental disorders (20 sources)Developmental disorder; 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]Onset: 784290-84-5353ApnoydsRzoyfueo mellitus with complications (4 sources)Type 2 diabetes mellitus; Translations: [Type 2 diabetes mellitus with other diabetic neurological complication]43-41-6770EvqlkvgLuydlvgz mellitus with complications (1 source)Type 2 diabetes mellitus with diabetic neuropathy, unspecified; Translations: [TYPE 2 DM W/DIABETICNEUROPATHY UNS]Onset: 58-73-0336Ylbewahb mellitus without complication (20 sources)Type 2 diabetes mellitus without complications; Translations: [Diabetes mellitus]Onset: 606797-98-9889XizeyacLgewkpsny of lipid metabolism (11 sources)Hyperlipidemia; Translations: [Hyperlipidemia, unspecified]Onset: 006744-84-3490AxsyvqpSykudqzhwc disorders (16 sources)Gastroesophageal reflux disease; Translations: [Gastroesophageal reflux disease without esophagitis]Onset: 535672-04-1480YbsovleMjfjcjfft hypertension (20 sources)Essential (primary) hypertension; Translations: [Benign essential hypertension]Onset: 10-11-2017 Resolved: 527866-26-3889CmirrxjEytnhiyvsxmsu symptoms and ill-defined conditions (13 sources)Urge incontinence of oxukr41-47-6497NpwkdyxGirwmyvsvyeyk symptoms and ill-defined conditions (20 sources)Nocturia; Translations: [Nocturia]Onset: 38-25-3611Mjeoekyq Hyperplasia of prostate (18 sources)Benign prostatic hypertrophy with outflow obstruction; Translations: [Benign prostatic hyperplasia with lower urinary tract symptoms]Onset: 72-53-5011AsnjclxVdqtcmb and fatigue (4 sources)Rokgsngv58-86-0834JzbzbrifMfyxyzhyrdnud mental health disorders (9 sources)Personality fgotwa99-81-7183JmerqluWvfv disorders (15 sources)Depressive udgtuwlu46-94-2869QmacgsxAeutwna (20 sources)Onychomycosis; Translations: [Tinea unguium]Onset: 10-03-2023 08-47-1712ZmwumqrvKwfajrsupjwvmw (20 sources)Wmvurdvjncgpss54-46-5448ImcivutVhbobva on above:rght kneeleft hip Other aftercare (10 sources)Long-term current use of 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; 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]Onset: 004732-56-6298IhmdrsjgJwzab aftercare (1 source)Long-term current use of oral hypoglycemic medication; Translations: [terminal 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) use of oral hypoglycemic drugs]EpisodicOther aftercare (2 sources)penitentiary (current) use of 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s; 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]Onset: 33-01-3688FkjgatdcNebcx connective tissue disease (6 sources)Pain of toe of right foot; Translations: [Pain in right toe(s)] 11-58-5338XmqsbkvsNccpb connective tissue disease (6 sources)Pain of toe of left foot; Translations: [Pain in left toe(s)] 07-24-1305AsfcajzyXggzs diseases of bladder and urethra (2 sources)Overactive -29-3489LuxmgsuMpfjc diseases of bladder and urethra (1 source)Detrusor overactivity; Translations: [Overactive bladder]Onset: 74-77-5141IdbwqbdQmzvf diseases of veins and lymphatics (20 sources)Venous insufficiency of leg; Translations: [Venous insufficiency (chronic) (peripheral)]Onset: 976182-39-5279TwhsuyauBoxlb lower respiratory disease (1 source)Disorder of lung; Translations: [Other disorders of lung]Onset: 63-30-0168FlamtpwyVintt lower respiratory disease (4 sources)Shortness of breath; Translations: [Shortness of breath]Onset: 90-07-0169RsvjkbmjLsggu lower respiratory disease (17 sources)Dyspnea; Translations: [Shortness of breath]Onset: 12-24-2023 47-85-6995IvawnlwsTvjgs lower respiratory disease (5 sources)Rnmap46-00-5349MonjezqwPnptz lower respiratory disease (5 sources)Sbqvrphe73-19-7398WipuxzasAbjen nervous system disorders (8 sources)Disturbance of attention; Translations: [Attention and concentration deficit]91-24-3936ZpwfiuiEdrdb nutritional; endocrine; and metabolic disorders (20 sources)Body mass index 40+ - severely obese; Translations: [Body Mass Index 45.0-49.9, adult]Onset: 706451-88-5421MxpjyyaDmzoa nutritional; endocrine; and metabolic disorders (16 sources)Morbid obesity; Translations: [Morbid obesity]74-78-8972WcrhbqrSfxbr nutritional; endocrine; and metabolic disorders (20 sources)Severe obesity; Translations: [Class 3 severe obesity due to excess calories with serious comorbidity and body mass index (BMI) of 45.0 to 49.9 in adult]Onset: 509300-16-9024UxyfkhnGchwx nutritional; endocrine; and metabolic disorders (4 sources)Body mass index (BMI) 40.0-44.9, adult; Translations: [Body mass index (BMI) 40.0-44.9, adult ([facility]Onset: 74-82-9985WyrxhqnNexuk screening for suspected conditions (not mental disorders or infectious disease) (1 source)Encounter for screening for malignant neoplasm of prostate; Translations: [Screening for malignant neoplasm done]Onset: 51-52-5879Avfymhmv Other skin disorders (15 sources)Impaired skin mnuiitsux01-56-4338IzopfbcsLnxcrwc on above:Problem added on documentation of skin impairments.Residual codes; unclassified (20 sources)Obstructive sleep apnea syndrome; Translations: [Obstructive sleep apnea (adult) (pediatric)]Onset: 923251-76-7725IpaqxceDcqikepc codes; unclassified (6 sources)Insomnia; Translations: [Other insomnia]47-58-3122WvqydaeNuxmbjzz codes; unclassified (19 sources)Edema of lower extremity; Translations: [Edema]Onset: 09-05-2023 86-61-7132QzywxsvyDoaenudv codes; unclassified (3 sources)Family history of cancer; Translations: [Family history of malignant neoplasm of prostate]Onset: 82-87-8926XihktjkfXfgetbvd codes; unclassified (15 sources)Body fluid -54-9297AurzrnhwClyhiahm codes; unclassified (15 sources)Family history of prostate pccads35-14-0905IhucdjiqQfqfolbf codes; unclassified (2 sources)Edema, unspecified; Translations: [Edema, unspecified]Onset: 78-69-7743GiaeyvpsQppvhmaw codes; unclassified (9 sources)Mgpzprvxz22-71-8532EfxofoncLtzryvwf codes; unclassified (10 sources)Memory impairment; Translations: [Other amnesia]96-85-5036Jeibmmea Residual codes; unclassified (1 source)Other amnesia; Translations: [Other amnesia]Onset: 95-24-0920Mltlogky Residual codes; unclassified (6 sources)Never smoked tobacco; Translations: [Other specified health status] Onset: 371916-35-2426GybjaqrgMfvlgmwt codes; unclassified (2 sources)Localized edema; Translations: [Localized edema]Onset: 09-05-2023 EpisodicResidual codes; unclassified (2 sources)Other specified health status; Translations: [Other specified health status]Onset: 13-59-5163JqywcjfmZacnzjn detachments; defects; vascular occlusion; and retinopathy (20 sources)Degenerative disorder of macula ; Translations: [Unspecified macular degeneration]Onset: 564997-61-1446RydswrwVfobskfjkho injury; contusion (2 sources)Contusion of left upper arm, sequela; Translations: [Late effect of contusion]Onset: 776327-65-2418WvbcwtobRobzvfqxcbxq (15 sources)Drug therapy polvatb32-13-5479Undtqjvhicxk (13 sources)Patient encounter gjxsen78-21-8882Ugznkylypoku (2 sources)Permanent atrial fibrillation; Translations: [Permanent atrial fibrillation (Multi)]Onset: 09-05-2023 Past or Other Problems Problem ClassificationProblemDateDocumented DateEpisodic/ChronicResidual codes; unclassified (20 sources)Edema of foot; Translations: [Localized edema]Onset: 10-03-2023 40-51-4508RrtymvisRhhyumackghk (7 sources)Never smoked tobacco; Translations: [Never a smoker]Unclassified (5 sources)Onset: 09-23-2023 Resolved: Results Test NameValueInterpretationReference RangeFacilityFami Medicine Office/Clinic Noteon 54-38-4049Fraetm Medicine Office/Clinic NoteFami Medicine Office/Clinic Note HPI Staff Pt presents today for ER follow up Hospital: [facility] Visit date: 04/06/25 Symptoms the patient presented with: s/p fall Current concerns: he fell outside over a clump of weeds had to call EMS to pick him up He said when he lets his arm hand he said it throbs, rodriguez elevating it helps a lot, he can not lift anything with his hand, he can not close his hand all the way History of Present Illness pt presents today for ER follow up from a fall he has left arm bruising, swelling, and open area from landing on his arm with the fall Review of Systems PHQ Score Initial Depression Screen Score: 0 SCORE General: alert, no acute distress ENMT: oral mucosa moist, no pharyngeal erythema or exudate Cardiovascular: regular rate and rhythm, normal peripheral perfusion Respiratory: Lungs CTA, respirations non labored Extremities: no deformity, no trauma Neurological: oriented x 4, LOC appropriate for age, CN II-XII intact, motor strength equal & normal bilaterally, speech normal left arm and hand bruised and swollen. open area on outer forearm has some redness and warmth Physical Exam Vitals & Measurements T: 36.3 ???C(Temporal Artery) HR: 78(Peripheral) RR: 20 SpO2: 99% HT: 175.0 cm HT: 69 in WT: 126.5 kg WT: 278.884 lb BMI: 41.31 Assessment/Plan 1. History of recent fall (Z91.81: History of falling) pt fell last Saturday and presents today with continued arm pain. Ordered: Complex E&M Add on G2211 E&M of Est. Patient Low 20-29 Min 34617 2. Left arm pain (M79.602: Pain in left arm) left arm is severely bruised and swollen. has an area that is open and bleeding during the visit. the wound was cleansed and non adherant dressing with triple antibiotic was applied and secured with gauze wrap. pt was instructed to keep the area clean and dry and leave open to air as much as possible to promote healing and form a scab. 10 hydrocodene acte were sent in to [facility] as well as [facility]. RTC for 3 month follow up Ordered: Complex E&M Add on G2211 E&M of Est. Patient Low 20-29 Min 01926 3. BMI 40.0-44.9, adult, (Z68.41: Body mass index [BMI] 40.0-44.9, adult)Body mass index [BMI] 40.0-44.9, adult BMI education Ordered: Complex E&M Add on G2211 E&M of Est. Patient Low 20-29 Min 93890 4. Class 3 severe obesity due to excess calories with body mass index (BMI) of 40.0 to 44.9 in adult (E66.813: Obesity, class 3) see above Ordered: Complex E&M Add on G2211 E&M of Est. Patient Low 20-29 Min 54091 Morbid (severe) obesity due to excess calories (E66.01: Morbid (severe) obesity due to excess calories) Follow-up No qualifying data available Problem List/Past Medical History Ongoing Anticoagulated Atrial fibrillation BMI 40.0-44.9, adult BPH with urinary obstruction Chronic GERD COPD type A Family history of prostate cancer Forgetfulness History of recent fall Hypertension Left arm pain Limited mobility Morbid obesity with BMI of 40.0-44.9, adult Nocturia OAB (overactive bladder) 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 Screening PSA (prostate specific antigen) Type 2 diabetes mellitus Weakness Historical BMI 45.0-49.9, adult Depression Non-ST elevated myocardial infarction (non-STEMI) Procedure/Surgical History Colonoscopy (05/13/2019), Laparoscopic cholecystectomy (04/03/2019), TURP - Transurethral resectionof prostate (12/15/2015), Urodynamics (11/02/2015), Total hip replacement (09/08/2015), left total knee arhroplasty (05/10/2015), right total knee arthroplasty (02/22/2015), Cataract, Endoscopic retrograde cholangiopancreatography (ERCP) not completed due to anatomical derangements from previous surgery, Placement of stent in cardiac conduit, Rotator cuff repair, Tonsillectomy. Medications acetaminophen-hydrocodone 325 mg-5 mg oral tablet, 1 tab(s), Oral, Bedtime, PRN Albuterol (Eqv-Ventolin HFA) 90 mcg/inh inhalation aerosol, See Instructions, 1 refills atorvastatin, 80 mg, Oral, Bedtime bumetanide 1 mg Tab, 1 mg= 1 tab(s), Oral, Daily cephalexin 500 mg Cap, 500 mg= 1 cap(s), Oral, q12hr clopidogrel, 75 mg, Oral, Daily Dulera 100 [...] mg Tab, 500 mg= 1 tab(s), Oral, D (more content not included)... [facility] HospitalComment on above:Result Comment: Electronically Signed By: Ina Guevara\.br\Date and Time Signed: 04/16/25 15:56 EDT Ambulatory Visit Summaryon 25-13-7684Klfldmtmka Visit SummaryAmbulatory Visit Summary HUANG ROBLES :1955 Visit Date:04/15/2025 Ambulatory Visit Instructions Your Diagnosis History of recent fall Left arm pain BMI 40.0-44.9, adult, Body mass index [BMI] 40.0-44.9, adult Class 3 severe obesity due to excess [...] done Your Care Team Attending Physician - Ina Guevara Primary Care Physician - Ina Guevara This Is Your Medications List Misc [...] (05/13/2019), Laparoscopic cholecystectomy (04/03/2019), TURP - Transurethral resectionof prostate (12/15/2015), Urodynamics (11/02/2015), Total hip replacement (09/08/2015), left total knee arhroplasty (05/10/2015), right total knee arthroplasty (02/22/2015), Cataract, Endoscopic retrograde cholangiopancreatography (ERCP) not completed due to anatomical derangements from previous surgery, Placement of stent in cardiac conduit, Rotator cuff repair, Tonsillectomy. Discharge Vitals Temperature (Temporal Artery) 36.3 ???C Heart Rate (Peripheral) 78 Respiratory Rate 20 Height 175.0 cm Height 69 in Weight 126.5 kg Weight 278.884 lb BMI 41.31 What to do next Scheduled Follow-Up Appointments Saturday 9:20 AM EST With: Where: [address] [id number]- Saturday 10:40 AM EST With: Ina Guevara Where: [address] [address]- 2025 10:30 AM EDT With: Where: [facility] [address] [address]- 2025 10:20 AM EDT With: Orzech MACHINE SAND MIXER, FIRE REGULATOR-C, Ruth X Where: [facility] [address] [address]- Saturday2025 9:30 AM EDT With: Where: [facility] [place] [address] [place] [address]- Medications What How Much When Why Instructions [...] Milligram By Mouth Every day Unchanged cyanocobalamin ( (more content not included)...[facility] HospitalAmbulatory Visit SummaryAmbulatory Visit Summary HUANG ROBLES :1955 Visit Date:04/15/2025 Ambulatory Visit Instructions Your Diagnosis History of recent fall Left arm pain BMI 40.0-44.9, adult, Body mass index [BMI] 40.0-44.9, adult Class 3 severe obesity due to excess [...] done Your Care Team Attending Physician - Ina Guevara Primary Care Physician - Ina Guevara This Is Your Medications List Misc [...] (05/13/2019), Laparoscopic cholecystectomy (04/03/2019), TURP - Transurethral resectionof prostate (12/15/2015), Urodynamics (11/02/2015), Total hip replacement (09/08/2015), left total knee arhroplasty (05/10/2015), right total knee arthroplasty (02/22/2015), Cataract, Endoscopic retrograde cholangiopancreatography (ERCP) not completed due to anatomical derangements from previous surgery, Placement of stent in cardiac conduit, Rotator cuff repair, Tonsillectomy. Discharge Vitals Temperature (Temporal Artery) 36.3 ???C Heart Rate (Peripheral) 78 Respiratory Rate 20 Height 175.0 cm Height 69 in Weight 126.5 kg Weight 278.884 lb BMI 41.31 What to do next Scheduled Follow-Up Appointments Saturday 9:20 AM EST With: Where: [address] [address]- Saturday 10:40 AM EST With: Ina Guevara Where: [address] [address]- 2025 10:30 AM EDT With: Where: [facility] [address] [address]- 2025 10:20 AM EDT With: WILLIAM Christiansen APRN, Ruth Moore Where: [facility] [address] [address]- Saturday2025 9:30 AM EDT With: Where: [address] [address]- Medications What How Much When Why Instructions [...] Milligram By Mouth Every day Unchanged cyanocobalamin ( (more content not included)...[facility] HospitalPre-Visit Planningon 47-27-5840Nig-Visit PlanningPre-Visit Planning From: Barbra Muller To: Ina Guevara; Sent: 04/14/2025 09:31:54 EDT Subject: Pre-Visit Planning Due Date/Time: 04/14/2025 09:31:00 EDT Caller Name: HUANG ROBLES; Caller Number: H , M Thor Newman. During a pre-visit planning chart review, I noted the following documentation in the medical record: Current Problem List: Depression (Major depressive disorder, single episode, unspecified). 03/22/2025 Medicare Wellness Visit: Depression (F32.9: Major depressive disorder, single episode, unspecified) Patient not currently on depression medication. Follows up with PCP with medication management and symptom control. PHQ-9 risk assessment completed with negative findings. Total risk scoreis 0. Patient denies any suicidal ideations at this time. Reviewed additional signs/symptoms to monitor for and report to provider. Based on your medical judgment, can you please clarify which, if any, of the following conditions are present? Major Depressive Disorder, Single Episode ??? Major depressive disorder, single episode, mild ??? Major depressive disorder, single episode, moderate ??? Major depressive disorder, single episode, severe without mention of psychotic behavior ??? Major depressive disorder, single episode, in partial remission ??? Major depressive disorder, single episode in full remission Other (Please Specify): In responding to this request, please exercise your independent professional judgement. The fact that a question is asked does not imply that any particular answer is desired or expected. If you have any questions, please feel free to contact me at extension [phone]. Thank you! Barbra Muller LPN Clinical Water Softener Installer [place] [address] Extension: [phone] [email or web address] From: Ina Guevara To: Barbra Muller; Sent: 04/14/2025 09:52:06 EDT Subject: RE: Pre-Visit Planning Caller Name: HUANG ROBLES; Caller Number: H , M Does not have any of the below diagnosesNormalFisher [facility] HospitalUrology Office/Clinic Noteon 23-82-0233Bqmptxb Office/Clinic NoteUrology Office/Clinic Note Chief Complaint 6 month f/u [...] with voice recognition artificial intelligence software, specifically [employer], [employer] and or [email or web address]. Substitutions may have occurred due to the [...] E&M of Est. Patient Moderate 30-39 Min 47792 2. Screening PSA (prostate specific antigen) (Z12.5: Encounter for screening for malignant neoplasmof prostate) PSA: 05/31/20 - 0.31 06/06/21 - 0.19 & 26.3% 08/21/22 - 0.38 07/25/23 - 0.35 09/11/24 - 0.30 PSA low and stable, discussed results w/ pt. -PSA due 6 mos, f/u to review Ordered: E&M of Est. Patient Moderate 30-39 Min 50320 PSA Screen, Total 3. BPH with urinary obstruction (N40.1: Benign prostatic hyperplasia with lower urinary tract symptoms) S/p TURP 12/15/15 IPSS 3, QoL 1 Not taking any prostate meds at this time, not indicated based on sx control and emptying. -cont to monitor Ordered: E&M of Est. Patient Moderate 30-39 Min 44127 4. Family history of prostate cancer (Z80.42: Family history of malignant neoplasm of prostate) Brother. Diagnosed in his 60s Ordered: E&M of Est. Patient Moderate 30-39 Min 64387 Follow-up With When Contact Information Елена MALAVE, WILLIAM, Ruth X, FAM, URL Additional Instructions: 6 [...] (05/13/2019), Laparoscopic cholecystectomy (04/03/2019), TURP - Transurethral resectionof prostate (12/15/2015), Urodynamics (11/02/2015), Total hip replacement [...] Abuse - Denies Substance (more content not included)...[facility] HospitalComment on above:Result Comment: Electronically Signed By: WILLIAM Christiansen APRN, [place] X\.br\Date and Time Signed: 03/25/25 11:15 EDT Ambulatory Visit Summaryon 87-08-8842Kdjyxturio Visit SummaryAmbulatory Visit Summary HUANG ROBLES :1955 Visit Date:03/22/2025 [...] done Your Care Team Attending Physician - Ina Guevara Primary Care Physician - Ina Guevara This Is Your Medications List Misc [...] (05/13/2019), Laparoscopic cholecystectomy (04/03/2019), TURP - Transurethral resectionof prostate (12/15/2015), Urodynamics (11/02/2015), Total hip replacement [...] APRN, Ruth Moore Where: [facility] [address] [address]- Saturday 9:20 AM EST With: Where: [address] [address]- Saturday 10:40 AM EST With: Ina Guevara Where: [address] [id number]- Saturday2025 9:30 AM EDT With: Where: [address] [address]- You Need to Complete the Following Comprehensive Metabolic Panel, Blood, Routine collect, 03/22/25, Order for future visit, Lab Collect, Hypertension, Print Label By Order Location HgbA1c, Blood, Routine collect, 03/22/25, Order for future visit, Lab Collect, Type 2 diabetes mellitus, Print Label By Order Location Lipid Panel, Blood, Routine collect, 03/22/25, Order for future visit, Lab Collect, Type 2 diabetesmellitus, Print Label By Order Location Urine Microalbumin/Creatinine Ratio, Urine, Routine collect, 03/22/25, Order for future visit, Nurse collect, Type 2 diabetes mellitus, Print Label By Order Location Medications What How Much When Why Instructions Unchanged albuterol (Albuterol (Eqv-Ventol (more content not included)...[facility] Medicine Office/Clinic Noteon 03-79-0236Cddwjh Medicine Office/Clinic NoteFawestborough behavioral healthcare hospital Medicine Office/Clinic Note Chief Complaint Subsequent Medicare [...] and all current CDC recommended immunizations, relevant riskrecommendations and the following patient brochures were given. Reviewed Medicare Prevention Services checklist. CDC-Falls Prevention and home safety screening reviewed. Patient denies any falls in last 12 months, voices no worry about falling. Exhibits no problems with sitting, standing or ambulation. Patient aware with keeping walk way area free of clutter to prevent tripping and/or falling. [place] Advance Directives reviewed. Documents remain at home, encouraged to bring in for scanning into chart. Patient denies any problems with ADL???s and Instrumental ADL???s. Cognitive screening completed with memory and clock face drawing. No deficits noted. Immunization record reviewed, discussed Shingrix vaccine with educational handout and availability.2 COVID vaccines have been administered, with (2) Boosters received. Allergies and medications reviewed and up to date. No concerns with taking medication as prescribed. Reviewed OTC medications, medication list up to date. Blood tests were reviewed: Discussed what tests need to be updated. Labs were ordered, will have completed prior to next PCP visit. Labs to be completed with [facility]. No concerns with bowel/ bladder. Colonoscopy last completed 05/13/[address] Brito, due for repeat(10 years). Reviewed pain symptoms: rates pain as [...] PHQ-2 risk assessment for depression with risk sc ore (0), negative findings. Patient has been reminded to notify the provider if there would be a change or concerns with symptoms with fear, unable to sleep, worrying too much, or feeling down and/orsad with lost of interest with daily activities. [...] water, apply lotion to bilateral feet and in- between toes to prevent dryness and/or cracking. Wear proper fitting shoes and loose fitting socks and/or hose. Follows up with yearly DM eye exams, last visit notes from 03/30/2024 visit at [facility] [place] has been requested. A1C, LIPID Pa (more content not included)...[facility] HospitalComment on above:Result Comment: Electronically Signed By: Ina Guevara\.br\Date and Time Signed: 03/22/25 10:45 EDT\.br\Electronically Co-Signed By: Lacy Rey\.br\Date and Time Co-Signed: 03/22/25 10:31 EDTAmbulatory Visit Summaryon 10-74-5510Sbvnznuswi Visit SummaryAmbulatory Visit Summary HUANG ROBLES :1955 Visit Date:02/15/2025 [...] done Your Care Team Attending Physician - Ina Guevara Primary Care Physician - Ina Guevara This Is Your Medications List Misc [...] (05/13/2019), Laparoscopic cholecystectomy (04/03/2019), TURP - Transurethral resectionof prostate (12/15/2015), Urodynamics (11/02/2015), Total hip replacement [...] Appointments Saturday 9:30 AM EDT With: Where: [facility] [address] [place] [address]- 2024 10:20 AM EDT With: WILLIAM Christiansen APRN, [place] X Where: [facility] [address] [place] [address]- Saturday 10:40 AM EST With: Ina Guevara Where: [address] [address]- Medications What How Much When Why Instructions [...] 10 Milligram By M (more content not included)...[facility]Bar[facility] Medicine Office/Clinic Noteon 38-49-7450Ahicdi Medicine Office/Clinic NoteFawestborough behavioral healthcare hospital Medicine Office/Clinic Note HPI Staff Huang is [...] it is too soon to check today. [employer] is working well. pt checks BS while [...] (05/13/2019), Laparoscopic cholecystectomy (04/03/2019), TURP - Transurethral resectionof prostate (12/15/2015), Urodynamics (11/02/2015), Total hip replacement [...] BNT-162b2 vax 08/19/19 (more content not included)... [facility] HospitalComment on above:Result Comment: Electronically Signed By: Ina Guevara\.br\Date and Time Signed: 02/15/25 11:38 EDT CHEMISTRYOrdered By: Yohana Huerta on 57-55-8194VyA8f (Bld) [Mass fraction]6.6 %High<=5.9%[facility] ChemAutoSSFamily Medicine Office/Clinic Noteon 52-21-8003Ydfmsp Medicine Office/Clinic NoteFawestborough behavioral healthcare hospital Medicine Office/Clinic Note HPI Staff Gerson is [...] check HGBA1C in office today. pt is doingwell. says when he checks BS on freestyle marshal it has been normal. denies needs at this time. RTC 3 months. will order annual labs at that visit. he will have to have those done before AMW visit as a nurse visit. Ordered: HgbA1c Lab Specimen Collect [id number] 2. BMI 40.0-44.9, adult (Z68.41: Body mass index [BMI] 40.0-44.9, adult) BMI education given Ordered: HgbA1c Lab Specimen Collect [id number] 3. Non-smoker (Z78.9: Other specified health status) continue not smoking Ordered: HgbA1c Lab Specimen Collect [id number] Follow-up No qualifying data available Problem List/Past [...] (05/13/2019), Laparoscopic cholecystectomy (04/03/2019), TURP - Transurethral resectionof prostate (12/15/2015), Urodynamics (11/02/2015), Total hip replacement [...] 03/24/2021 Recorded SARS-CoV-2 (COVID-19) (more content not included)...NormalSamaritan North Health CenterComment on above:Result Comment: Electronically Signed By: Ina Guevara\katie\Date and Time Signed: 11/18/24 10:50 [id number] 83-34-3838ShI7e (Bld) [Mass fraction]6.6 %High<=5.9Sam[facility]itan North Health CenterComment on above: Performed By: #### [id number] #### [facility] [address] [place], [place] [address]ZAX 12 Leadon 93-47-0683Pqmhwy fibrillation with controlled rate and right bundle branch blockCPACSWilson Street Hospital Work Phone: ambulatory Visit Summaryon 43-11-3714Slthcvasxe Visit SummaryAmbulatory Visit Summary HUANG ROBLES :1955 Visit Date:09/11/2024 [...] done Your Care Team Attending Physician - Karissa BANKS MD Primary Care Physician - Ina Guevara This Is Your Medications List mirabegron [...] (05/13/2019), Laparoscopic cholecystectomy (04/03/2019), TURP - Transurethral resectionof prostate (12/15/2015), Urodynamics (11/02/2015), Total hip replacement [...] Follow-Up Appointments Saturday 10:00 AM EDT With: Ina Guevara Where: [address] [address]- Saturday 10:20 AM EDT With: Ina Guevara Where: [address] [address]- Saturday 9:30 AM EDT With: Where: [address] [address]- Saturday 9:45 AM EDT With: Karissa BANKS MD Where: [facility] [address] [place] [address]- You Need to Schedule the Following Appointments Follow Up with Karissa BANKS MD, URL When: Where: [facility] [address], [place] [address]- Medications What How Much When Why Instructions New mirabegron (mirabegron 50 mg oral tablet, extended release) 1 Tablets By Mouth Every day Duration: 30 Days Refills: 11 Pickup at [facility] Unchanged albuterol (Albuterol (Eqv-ProAir HFA) 90 mcg/ inh inhalation aerosol) 2 Inhalation Inhalation Every 6 hours Type 2 diabetes mellitus Contact prescribing physician if questions or concerns Unchanged albuterol (Albuterol (Eqv-Ventolin HFA) 90 mcg/ inh inhalation aerosol) See instructions INHALE 2 PUFFS BY MOUT (more content not included)... NormalFisher Johns Hopkins HospitalPSA Screen, Totalon 14-07-0822Tskciyjp specific Ag [Mass/Vol]0.3 ng/mLNormal0.1-3.5FToledo HospitalComment on above: Result Comment: The concentration of PSA determined by different manufacturers can vary due to differences in assay methods and reagent specificity. Values obtained from different assay methods cannot be used interchangeably. The methodology used for this result was chemiluminescence using [employer]'s Access Hybritech PSA reagent.Performed By: #### [id number] #### [facility] [address] [place], [place] [address]Pturvyj Office/Clinic Noteon 57-54-6523Bgkaggy Office/Clinic NoteUrology Office/Clinic Note Chief Complaint 1 yr f/u [...] does not empty his bladder. frequency is 2- 3 hrs, intermittency is usually during the night [...] and at night. Not often but does notlike this sx. Voiding q1-2hr. Nocturia 1-3x, depends [...] Generic requested. Take for 2 mos. SEs discussed.Stop taking if unable to void. Sent to DM. Call if cost prohibitive or not happy with sx control. 3. Family history of prostate cancer (Z80.42: Family history of malignant neoplasm of prostate) Brother. Diagnosed in his 60s. [1] Follow-up With When Contact Information JOCELYN DAVIDSON, Karissa Gray, URL [facility] [address], [place] [address]- Additional Instructions: 6 mos (new med) Patient [...] (05/13/2019), Laparoscopic cholecystectomy (04/03/2019), TURP - Transurethral resectionof prostate (12/15/2015), Urodynamics (11/02/2015), Total hip replacement [...] freestyle marshal 2 sensors, (more content not included)...[facility] Street HospitalComment on above:Result Comment: Electronically Signed By: Karissa BANKS MD\.br\Date and Time Signed: 09/11/24 12:55 EDT\.br\Electronically Co-Signed By: Marbella Brown\.br\Date and Time Co-Signed: 09/11/24 12:49 EDT Family Medicine Office/Clinic Noteon 53-02-9697Svecun Medicine Office/Clinic NoteFawestborough behavioral healthcare hospital Medicine Office/Clinic Note HPI Staff Huang is [...] System (Sensor). Replace sensor every 14 days., [id number], Supply, 174, cm, 01/20/24 10:48:00 EDT,... Misc Prescription, Freestyle Marshal 3 sensors, See Instructions, 12 EA, 1, change as needed, [id number], Supply, 174, cm, 01/20/24 10:48:00 EDT, Height/Length Dosing, 130, kg, 01/20/24 10:48:00 EDT, Weight Dosing Misc Prescription, Freestyle Marshal 2 sensors, See Instructions, 6 EA, 11, check BS 4 times a day, [facility], Supply, 174, cm, 08/17/24 10:24:00 EST, Height/Length Dosing, 129.3, kg, 08/17/24 10:24:00 EST, Weight Dosing 2. BMI 40.0-44.9, adult (Z68.41: Body mass index [BMI] 40.0-44.9, adult) BMI education given Ordered: Misc Prescription, Freestyle Marshal 2 sensors, See Instructions, 6 EA, 11, check BS 4 times a day, [facility], Supply, 174, cm, 08/17/24 10:24:00 EST, Height/Length Dosing, 129.3, kg, 08/17/24 10:24:00 EST, Weight Dosing 3. Non-smoker (Z78.9: Other specified health status) continue not smoking Ordered: Misc Prescription, Freestyle Marshal 3 Flash Glucose Monitoring 14 Day System (Sensor), See Instructions, 6 EA, 1, Freestyle Marshal 3 Flash Glucose Monitoring 14 Day System (Sensor). Replace sensor every 14 days., [id number], Supply, 174, cm, 01/20/24 10:48:00 EDT,... Misc Prescription, Freestyle Marshal 3 sensors, See Instructions, 12 EA, 1, change as needed, [id number], Supply, 174, cm, 01/20/24 10:48:00 EDT, Height/Length Dosing, 130, kg, 01/20/24 10:48:00 EDT, Weight Dosing Misc Prescription, Freestyle Marshal 2 sensors, See Instructions, 6 EA, 11, check BS 4 times a day, [facility], Supply, 174, cm, 08/17/24 10:24:00 EST, Height/Length Dosing, 129.3, kg, 08/17/24 10:24:00 EST, Weight Dosing Orders: metformin, See Instructions, TAKE 1 TABLET BY MOUTH TWICE A DAY FOR 90 DAYS, # 180 tab(s), Refills(s) 1, Pharmacy: [id number], 174, cm, 03/12/24 8:58:00 EDT, Height/Length [...] (05/13/2019), Laparoscopic cholecystectomy (04/03/2019), TURP - Transurethral resectionof prostate (12/15/2015), Urodynamics (11/02/2015), Total hip replacement (09/08/2015), left total knee arhroplasty (05/10/2015), right total knee arthroplasty (02/22/2015), Cataract, Endoscopic retrograde cholangiopancreatography (ERCP) not completed due to anatomical derangements from previous surgery, Placement of stent in cardiac conduit, Rotator cuff repair, Tonsillectomy. Medications Albuterol (Eqv-ProAir HFA) 90 mcg/inh inhalation aerosol, 180 mcg= 2 inh, Inhalation, q6hr Albuter (more content not included)...[facility] Street HospitalComment on above:Result Comment: Electronically Signed By: Ina Guevara\.br\Date and Time Signed: 08/21/24 11:11 ESTCHEMISTRYOrdered By: Yohana Huerta on 20-76-2365RsG0a (Bld) [Mass fraction]5.9 %Normal<=5.9%[facility] WspuSxlvIXMdaH4oag 45-91-9292XoO4c (Bld) [Mass fraction]5.9 %Normal<=5.9[facility] Comment on above:Performed By: #### [id number] #### [facility] [address] [place], [place] [address]Tkx-Etpsq Planningon 68-93-4358Ecd-Visit PlanningPre-Visit Planning From: Tiff Romero RN To: Ina Guevara; Sent: 05/15/2024 14:43:03 EST Subject: Pre-Visit Planning Due Date/Time: 05/15/2024 14:42:00 EST Caller Name: HUANG ROBLES; Caller Number: , M Thor Newman, *Based on your response below, can you please update the chronic problem list and address during this visit if appropriate?* During a pre-visit planning chart review, I noted the following documentation in the medical record: Problem list- Non-ST elevated myocardial infarction 01/20/2024 office note- NSTEMI 03/12/2024 office note-3. Non-ST elevated myocardial infarction (non-STEMI) (I21.4: Non-ST elevation(NSTEMI) myocardial infarction) Patient follows [facility] as directed and prn. Based on [...] feel free to contact me at extension [phone]. Thank you! Tiff Romero, ZACHARYN, RN, CCM, CCDS, CCDS-O CDI Program Consultant [place] [address] P: [phone] F: [phone] [email or web address] From: Ina Guevara To: Heather AREVALO, Tiff; Sent: 06/08/2024 13:08:47 EST Subject: RE: Pre-Visit Planning Caller Name: HUANG ROBLES; Caller Number: Bj , M History of Non ST elevated MINormalFisher Johns Hopkins HospitalInterdisciplinary Note - Social Workeron [id number] Note - Outsole Compressor Interdisciplinary Note - Outsole Compressor Consult received from PCP's office regarding care needs patient has. SW contacted patient's sister,Rohan, and discussed needs with her. She explains that the things patient needs the most help with are medication set up, housekeeping, and dietary needs (he has food restrictions that he does not f sri). SW spoke to her about, and emailed lists of resources including private hire agencies, potentially looking into seeing if any students from a local school of nursing might be able to be hired(she was informed these individuals would not be bonded or insured as they would if they were employed by an agency), [employer], [facility], [employer], [employer], and a general [facility] Resource Guide. She will review the information and is aware that she can reach out to this SW with any questions or if further information is needed. SW will remain available.[facility] HospitalFawestborough behavioral healthcare hospital Medicine Office/Clinic Noteon 01-97-7053Nqckdv Medicine Office/Clinic NoteFami Medicine Office/Clinic Note Chief Complaint 1m f/u HPI Staff Pt presents today for 1m f/u HITESH 01/20/24: pt referred to neuro. HH. & Nutrition Sister states that they have not heard from production foreman, nor HH. They were contacted by neuro, [...] referred to diabetic education but has still notheard from anyone to schedule a visit. will place referral again today. discussed the importance ofstaying away from breads, pastas, starches and fruits that are high in sugar. pt verbalizes understanding. pt will return in 3 months for HGBA1C. his sister will call office with info needed for diabetic shoes she has to go through a different company due to insurance request. pt will benefit from diabetic shoes. due to decreased sensation and neuropathy. and callous formation. Ordered: [facility] Internal Ambulatory Referral Urnls Dip Stick Auto w/o Microscopy POC [address] 2. Shortness of breath (R06.02: Shortness of breath) pt gets SOB on exertion. his grounds caretaker states he just sits around all day. he is not active at all. encouraged him to get up every hour and walk around his house. if weather is not good, he will getup and walk around from room to room every hour. pt verbalizes understanding. Ordered: [facility] Internal Ambulatory Referral 3. Urinary frequency (R35.0: Frequency of micturition) u/a negative except for glucose 4. BMI 40.0-44.9, adult (Z68.41: Body mass index [BMI] 40.0-44.9, adult) BMI education given Ordered: [facility] Internal Ambulatory Referral Follow-up No qualifying data [...] (05/13/2019), Laparoscopic cholecystectomy (04/03/2019), TURP - Transurethral resectionof prostate (12/15/2015), Urodynamics (11/02/2015), Total hip replacement [...] 2 Flash Glucose Monitoring 14 Day System ([place]), See Instructions freestyle marshal 2 sensors, See [...] Known Allergies Social Hist (more content not included)...[facility] Comment on above:Result Comment: Electronically Signed By: Ina Guevara\.anand\Date and Time Signed: 06/04/24 12:58 [facility] 06-04-2024 [facility] Case Information Case Priority: None Programs: -- Referral Source: [employer] Referral Reason: Disease management Case Type: Chronic Care Management Risk Score: -- Case Status: Enrolled (February 26, 2024) Date Assigned: February 10, 2024 Assigned By: Wayne Nunes Date Enrolled: February 26, 2024 Assigned Primary Personnel: Wayne Nunes Assigned Secondary Personnel: -- Case Physician: Ina Guevara Problems Ongoing Anticoagulated Atrial fibrillation BMI [...] (05/13/2019), Laparoscopic cholecystectomy (04/03/2019), TURP - Transurethral resectionof prostate (12/15/2015), Urodynamics (11/02/2015), Total hip replacement [...] name, street address and date of verified Program Enrollment Provides verbal consent for enrollment CCM Written Consent Written consent obtained 02/26/24 08:35:00 Result Name Value Comment [facility] Program Enrollment Verbally agreed to receive [facility] services CCM Verbal Consent By Self 02/25/24 10:00:00 Result Name Value Comment HIPPA Verified Type of Contact In person at home Information Given by Self CM Preferred Spoken Language Malawian CM Preferred Written Language Malawian Preferred Communication Mode Verbal Ability to Read/Write Able to read, Able to write CM Caregiver's Preferred Spoken Language Mal[place]ian CM Caregivers Preferred Written Language Mal[place]ian Director Rehabilitation Program Called No Preferred Method of Contact Cell Cell Best Time to Visit or Contact 7-10 am Best Day to Visit or Contact No preference Appointment Reminders Phone, Other secured messaging Preferred Way to Send PHI Other secur (more content not included)...[facility] Ambulatory Visit Summaryon [id number] Visit SummaryAmbulatory Visit Summary HUANG ROBLES :1955 Visit Date:05/18/2024 [...] done Your Care Team Attending Physician - Ina Guevara Primary Care Physician - Ina Guevara This Is Your Medications List Misc Prescription (Freestyle Marshal 3 Flash Glucose Monitoring 14 Day System (Sensor)) Misc Prescription (Freestyle Marshal 3 sensors) Misc Prescription (freestyle marshal 2 sensors) albuterol (Albuterol (Eqv-ProAir HFA) 90 mcg/inh inhalation aerosol) albuterol (Albuterol (Eqv-Ventolin HFA) 90 mcg/inh inhalation aerosol) apixaban (Eliquis) ascorbic acid (Vitamin C 500 mg Tab) atorvastatin brompheniramine/dextromethorphan/PSE (Bromfed DM oral syrup) bumetanide (bumetanide 1 [...] (05/13/2019), Laparoscopic cholecystectomy (04/03/2019), TURP - Transurethral resectionof prostate (12/15/2015), Urodynamics (11/02/2015), Total hip replacement [...] Appointments Saturday 10:00 AM EST With: Where: [facility] [address] [id number]- Saturday 8:45 AM EST With: Karissa BANKS MD Where: [facility] [address] [place] [address]- Saturday 9:30 AM EDT With: Where: [place] [address]- You Need to Complete the Following XR Chest 2 Views, 05/18/24, Routine, Order for future visit, Transport Mode: Cart, Reason: Cough, No, Type 2 diabetes mellitus Cough Wheezing Atrial fibrillation BMI 40.0-44.9, adult Morbidobesity with BMI of 40.0-44.9, adult, pp_set_radiology_subspecialty,... Medications What How Much When Why Instructions Unchanged albuterol (Albuterol (Eqv-ProAir HFA) 90 mcg/ inh inhalation aerosol) 2 Inhalation Inhalation Every 6 hours Type 2 diabetes mellitus Unchanged albuterol (Albuterol (Eqv-Ventolin HFA) 90 mcg/ inh inhalation aerosol) See instructions INHALE 2 PUFFS BY MOUTH EVERY 4 HOURS NEEDED Un (more content not included)...[facility] Medicine Office/Clinic Noteon [id number] Medicine Office/Clinic NoteFawestborough behavioral healthcare hospital Medicine Office/Clinic Note HPI Staff Huang is [...] will check HGBA1C after June 12 Ordered: brompheniramine/dextromethorphan/PSE, 5 mL, Oral, QID for cough and congestion, 200 mL, Refill(s) 0, [id number], 174, cm, 05/18/24 9:55:00 EST, Height/Length Dosing, 122.2, kg, 05/18/24 9:55:00 EST, Weight Dosing brompheniramine/dextromethorphan/PSE, 5 mL, Oral, QID for cough and congestion, 200 mL, Refill(s) 0, [id number], 174, cm, 05/14/24 [...] (05/13/2019), Laparoscopic cholecystectomy (04/03/2019), TURP - Transurethral resectionof prostate (12/15/2015), Urodynamics (11/02/2015), Total hip replacement [...] 11 refills Dulera 100 (more content not included)...[facility] Comment on above:Result Comment: Electronically Signed By: Ina Guevara\.br\Date and Time Signed: 05/18/24 12:34 ESTXR Chest 2 Viewson 05-22-5828BQ Chest 2 ViewsExam Date/Time: 05/18/2024 13:00 EST Reason for Exam: E11.9, R05.9;Cough Report IMPRESSION: LEFT LOWER LUNG ATELECTASIS/PNEUMONIA. CLINICAL INFORMATION: Cough, E11.9, R05.9 COMPARISON: JANUARY 08, 2024. FINDINGS: 2 views. Osseous structures intact. Cardiopericardial silhouette normal. Pulmonary vasculature normal. Lungs hyperexpanded right lung clear. Ill-defined area increased opacity left lung base. Ordering Provider: Ina Pierre FINAL REPORT Dictated: 05/18/2024 5:45 pm Jarred Acevedo MD Signed (Electronic Signature): 05/18/2024 5:45 pm Signed by: Jarred Acevedo MD Transcribed by: UGO Technologist: MARIA DEL CARMEN Technical Comments Radiation Dose: Ka,r in mGy = na DAP = naNorKettering HealthPre-Visit Planningon 83-31-0221Kkb- Visit PlanningPre-Visit Planning From: Tiff Romero RN To: Ina Guevara; Sent: 05/15/2024 14:33:30 EST Subject: Pre-Visit [...] answer is desired or expected. If you haveany questions, please feel free to contact me at extension [phone]. Thank you! Tiff Romero, BSN, RN, CCM, CCDS, CCDS-O CDI Program Consultant [address] [address] P: [phone] F: [phone] [email or web address] NormalFisher Roberto Medical CenterPre-Visit PlanningPre-Visit Planning From: Heather AREVALO, Tiff To: Ina Guevara; Sent: 05/15/2024 14:26:34 EST Subject: Pre-Visit Planning Due Date/Time: 05/15/2024 14:26:00 EST Caller Name: HUANG ROBLES; Caller Number: Bj , Sameer Thor Newman, *Based on your response below, [...] feel free to contact me at extension [phone]. Thank you! Tiff Romero, ZACHARYN, RN, CCM, CCDS, CCDS-O CDI Program Consultant [address] [address] P: [phone] F: [phone] [email or web address] HospitalPre-Visit PlanningPre-Visit Planning From: Heather AREVALO, Tiff To: Leroy DAMON Ina Robe; Sent: 05/15/2024 14:16:25 EST Subject: Pre-Visit Planning [...] this time. PHQ-9 risk assessment completed with positivefindings. Total risk score is 9. Patient denies [...] feel free to contact me at extension [phone]. Thank you! Tiff Romero, ZACHARYN, RN, CCM, CCDS, CCDS-O CDI Program Consultant [address] [address] P: [phone] F: [phone] [email or web address] DesireeLife[facility] Medicine Office/Clinic Noteon [id number] Medicine Office/Clinic NoteFawestborough behavioral healthcare hospital Medicine Office/Clinic Note HPI Staff Huang is [...] dose pack on Saturday. he needs to grain picker script 3. Non-smoker (Z78.9: Other specified health [...] (05/13/2019), Laparoscopic cholecystectomy (04/03/2019), TURP - Transurethral resectionof prostate (12/15/2015), Urodynamics (11/02/2015), Total hip replacement [...] Recorded influenza virus vaccin (more content not included)...[facility] HospitalComment on above:Result Comment: Electronically Signed By: Ina Guevara\.anand\Date and Time Signed: 05/14/24 14:43 [facility] Medicine Office/Clinic Noteon [id number] Medicine Office/Clinic NoteB[facility] Medicine Office/Clinic Note HPI Staff Patient here [...] pt c/o worsening cough. will treat with teresita griffith and jeannette mccracken Ordered: azithromycin, = 1 packet(s), Oral, As Directed, as directed on package labeling, X 5 day(s), # 6 tab(s), Refills(s) 0, Pharmacy: [facility]/pharmacy #[id number], 174, cm, 05/04/24 15:26:00 EST, Height/Length Dosing, 120.6, kg, 05/04/24 15:26:00 EST, Weight Dosing benzonatate, 200 mg = 1 cap(s), Oral, TID, X 7 day(s), # 21 cap(s), Refills(s) 0, Pharmacy: [facility]/pharmacy #[id number], 174, cm, 05/04/24 15:26:00 EST, Height/Length Dosing, 120.6, kg, 05/04/24 15:26:00 EST,Weight Dosing 2. Wheezing (R06.2: Wheezing) wheezing on exam Ordered: azithromycin, = 1 packet(s), Oral, As Directed, as directed on package labeling, X 5 day(s), # 6 tab(s), Refills(s) 0, Pharmacy: [facility]/pharmacy #[id number], 174, cm, 05/04/24 15:26:00 EST, Height/Length Dosing, 120.6, kg, 05/04/24 15:26:00 EST, Weight Dosing benzonatate, 200 mg = 1 cap(s), Oral, TID, X 7 day(s), # 21 cap(s), Refills(s) 0, [id number], cm, 05/04/24 15:26:00 EST, Height/Length Dosing, 120.6, kg, 05/04/24 15:26:00 EST,Weight Dosing 3. Non-smoker (Z78.9: Other specified health status) continue not smoking Ordered: azithromycin, = 1 packet(s), Oral, As Directed, as directed on package labeling, X 5 day(s), # 6 tab(s), Refills(s) 0, Pharmacy: [facility] #[id number], 174, cm, 05/04/24 15:26:00 EST, Height/Length Dosing, 120.6, kg, 05/04/24 15:26:00 EST, Weight Dosing benzonatate, 200 mg = 1 cap(s), Oral, TID, X 7 day(s), # 21 cap(s), Refills(s) 0, Pharmacy: [facility] #[id number], 174, cm, 05/04/24 15:26:00 EST, Height/Length Dosing, 120.6, kg, 05/04/24 15:26:00 EST,Weight Dosing 4. BMI 39.0-39.9,adult (Z68.39: Body mass index [BMI] 39.0-39.9, adult) BMI education given Ordered: azithromycin, = 1 packet(s), Oral, As Directed, as directed on package labeling, X 5 day(s), # 6 tab(s), Refills(s) 0, Pharmacy: [facility] #[id number], 174, cm, 05/04/24 15:26:00 EST, Height/Length Dosing, 120.6, kg, 05/04/24 15:26:00 EST, Weight Dosing benzonatate, 200 mg = 1 cap(s), Oral, TID, X 7 day(s), # 21 cap(s), Refills(s) 0, Pharmacy: [facility] #[id number], 174, cm, 05/04/24 15:26:00 EST, Height/Length Dosing, 120.6, kg, 05/04/24 15:26:00 EST,Weight Dosing 5. 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: Other obesity due to excess calories) see above Ordered: azithromycin, = 1 packet(s), Oral, As Directed, as directed on package labeling, X 5 day(s), # 6 tab(s), Refills(s) 0, [id number], cm, 05/04/24 15:26:00 EST, Height/Length Dosing, 120.6, kg, 05/04/24 15:26:00 EST, Weight Dosing benzonatate, 200 mg = 1 cap(s), Oral, TID, X 7 day(s), # 21 cap(s), Refills(s) 0, [id number], 174, cm, 05/04/24 15:26:00 EST, Height/Length Dosing, 120.6, kg, 05/04/24 15:26:00 EST,Weight Dosing Orders: formoterol-mometasone, 2 puff(s), Inhalation, BID, 13 gram, Refill(s) 0, [id number], cm, 05/04/24 15:26:00 EST, Height/Length [...] (05/13/2019), Laparoscopic cholecystectomy (04/03/2019), TURP - Transurethral resectionof prostate ( (more content not included)... [facility] HospitalComment on above:Result Comment: Electronically Signed By: Ina Guevara\.anand\Date and Time Signed: 05/05/24 14:47 EST Population [facility] [id number] Health Case Information Case Priority: None Programs: -- Referral Source: Reflector Driller And Deburrer Referral Reason: Disease management Case Type: Chronic Care Management Risk Score: -- Case Status: Enrolled (February 26, 2024) Date Assigned: February 10, 2024 Assigned By: Wayne Nunes Date Enrolled: February 26, 2024 Assigned Primary Personnel: Wayne Nunes Assigned Secondary Personnel: -- Case Physician: Ina Guevara Ongoing Anticoagulated Atrial fibrillation BMI 40.0-44.9, adult [...] (05/13/2019), Laparoscopic cholecystectomy (04/03/2019), TURP - Transurethral resectionof prostate (12/15/2015), Urodynamics (11/02/2015), Total hip replacement [...] Tobacco Use:. Never Smokeless Tobacco Use:. Cigarettes, Householdtobacco concerns: No. Yes, 03/12/2024 Family History COPD: Sister. Cardiac arrhythmia: Brother. Diabetes mellitus type 2: Mother. Heart failure: Mother. Hyperthyroidism: Mother. Metastatic cancer: Father and Brother. Stroke: Mother. Screenings and Assessments 03/24/24 12:49:00 Result Name Value Comment Phone Call Monitoring Consent Agreed to continue call Phone Verification Patient Information Full name, street address and date of verified Program Enrollment Provides verbal consent for enrollment CCM Written Consent Written consent obtained 02/26/24 08:35:00 Result Name Value Comment CCM Program Enrollment Verbally agreed to receive [facility] services CCM Verbal Consent By Self 02/25/24 10:00:00 Result Name Value Comment HIPPA Verified Type of Contact In person at home Information Given by Self CM Preferred Spoken Language Malawian CM Preferred Written Language Mal[place]ian Preferred Communication Mode Verbal Ability to Read/Write Able to read, Able to write CM Caregiver's Preferred Spoken Language [place]ian CM Caregivers Preferred Written Language [place]ian Director Rehabilitation Program Called No Preferred Method of Contact Cell Cell Best Time to Visit or Contact 7-10 am Best Day to Visit or Contact No preference Appointment Reminders Phone, Other secured messaging Preferred Way to Send PHI Other secured messaging Preferred Mailing Address [address] C/O ROHAN [place]ULETA [facility] [address] Learning Style Pref Patient Video/Educational TV Learning Style Pref Parent/Guardian Video/Educational TV Teaching Method Teach-back, Video/Educational TV Barriers to Learning None evident hard to hear if (more content not included)...[facility] ISTAT XRay CREon [id number] GFR> 60.0NoFormerly [facility] Comment on above:Result Comment: PERFORMED BY: [place] [address] PATHOLOGIST EXECUTIVE TEAM LEADER DEENA ESCOBAR M.D.Performed By: #### ISCRE #### [place] [address] [facility] head/brain wo/w conon 67-34-3670OY head/brain wo/w con [facility] [place] [address] [place] [address] MRI Report Signed Patient: Huang Robles MR#: [id number] 82 : 1955 Acct:[id number] Age/Sex: 68 / M ADM Date: 04/07/24 Loc: MR Room: Type: [facility] Attending Dr: Avi Padgett DO Copies to: [...] Chad Winter M.D.04/07/2024 12:57 PM Dictation Location: [place] [address] Transcribed By: [facility] 04/07/24 1257 Dictated By: Chad Winter II, MD 04/07/24 1241 Signed By: 04/07/24 1257[facility] Physician GroupNo Panel InformationOrdered By: Avi Padgett on 60-63-9351Msvuray Estimated GFR (eGFR)> 60.0[facility] AkronWhole blood creatinine measurementOrdered By: Avi Padgett on 36-00-0421Lhfzgmwwry [Mass/Vol]1.1 mg/dLNormal0.6-1.3FFort Hamilton HospitalComment on above:ER/ESD physician is notified/shown all ISTAT results.Critical values may be confirmed by laboratorytesting ifdeemed necessary by ER attending doctor.Result Comment: ER/ESD physician is notified/shown all ISTAT results. Critical values may be confirmed by laboratory testing if deemed necessary by ER attending doctor.Performed By: #### ISCRE #### [facility] [address] [place], [place] [id number] [facility] [employer] 20-31-0910EhjqdzrhqtDuke Health [employer] Case Information Case Priority: None Programs: -- Referral Source: Reflect[employer]iller [employer] Deburrer Referral Reason: Disease management Case Type: Chronic Care Management Risk Score: -- Case Status: Enrolled (February 26, 2024) Date Assigned: February 10, 2024 Assigned By: Wayne Nunes Date Enrolled: February 26, 2024 Assigned Primary Personnel: Wayne Nunes Assigned Secondary Personnel: -- Case Physician: Ina Guevara Problems Ongoing Anticoagulated Atrial fibrillation BMI [...] (05/13/2019), Laparoscopic cholecystectomy (04/03/2019), TURP - Transurethral resectionof prostate (12/15/2015), Urodynamics (11/02/2015), Total hip replacement [...] Tobacco Use:. Never Smokeless Tobacco Use:. Cigarettes, Householdtobacco concerns: No. Yes, 03/12/2024 Family History COPD: [...] Given by Self CM Preferred Spoken Language Malawian CM Preferred Written Language Mal[place]ian Preferred Communication Mode Verbal Ability to Read/Write Able to read, Able to write CM Caregiver's Preferred Spoken Language [place]ian CM Caregivers Preferred Written Language Mal[place]ian Director Rehabilitation Program Called No Preferred Method of Contact Cell Cell Best Time to Visit or Contact 7-10 am Best Day to Visit or Contact No preference Appointment Reminders Phone, Other secured messaging Preferred Way to Send PHI Other secured messaging Preferred Mailing Address [address] C/[address] [place] [place] [facility] [address] Learning Style Pref Patient Video/Educational TV Learning Style Pref Parent/Guardian Video/Educational TV Teaching Method Teach-back, Video/Educational TV Barriers to Learning None evident hard to hear if (more content not included)...[facility] .Interpretation:on 07-43-8633QOM Ab IA QlCommentInvalid Interpretation Code [facility] CenterComment on above:Result Comment: Not infected with HCV unless early or acute infection is suspected (which may be delayed in an immunocompromised individual), or other evidence exists to indicate HCV infection. Performed at: [facility] [address] [place], [place] [id number] PhD Foreign Munozformed By: #### [id number] #### [facility] [address], [place] [address]TAQ Antibody RFX to Quant PCRon 35-54-4668JXE IgG IA Ql Non-ReactiveInvalid Interpretation CodeNon ReactiveFisher [facility] Comment on above:Result Comment: Performed at: [facility] [address], [place] [id number] PhD Foreign VelazquezPerformed By: #### [id number] #### [facility] [address], [place] [address]BAORZYFEPEqumeoa By: Willy Hardy on 32-71-6639Syicrky DL <= 20 mg/L (U) [Mass/Vol]mg/dLNormal0.0 - 1.9 mg/dLRemisol ChemAlbumin/Creatinine DL <= 20 mg/L (U) [Mass ratio]NOT CALCULATEDInvalid Interpretation Code0.0 - 30.0 Remisol ChemComment on above:Interpretive Data: 30-300 mg/g Cr indicates an increased risk for diabetic nephropathy. >300 mg/g Cr is consistent with clinical nephropathy.U Idfpkfoqsm77.8 mg/dL Invalid Interpretation CodeRemisol ChemCHEMISTRYOrdered By: SYSTEM SYSTEM on 88-21-5651Bmkrmec [Mass/Vol]4.2 g/dLNormal3.3 - 5.0 gm/dLRemisol Chem Albumin/Globulin [Mass ratio]1.8 {ratio}Normal1.1 - 2.2Remisol ChemALP [Catalytic activity/Vol]67 [iU]/eZollyf54 - 98 Int._Unit/LRemisol ChemALT No additional P-5'-P [Catalytic activity/Vol]15 [iU]/dNormal6 - 46 Int._Unit/L Remisol ChemAnion gap [Moles/Vol]13 mmol/LNormal6 - 16 mEq/LRemisol ChemAST [Catalytic activity/Vol]15 [iU]/dNormal5 - 43 Int._Unit/LRemisol ChemBilirubin [Mass/Vol]1.9 mg/dLHigh0.0 - 1.1 mg/dLRemisol ChemCalcium [Mass/Vol]8.9 mg/dL Normal8.9 - 11.1 mg/dLRemisol ChemChloride [Moles/Vol]101 mmol/MYicolw353 - 111 mmol/LRemisol ChemCholesterol [Mass/Vol]68 mg/lSWvl911 - 200 mg/dLRemisol Chem Cholesterol in HDL [Mass/Vol]30 mg/dLInvalid Interpretation CodeRemisol Chem Comment on above:Result Comment: '>= 60 LOW RISK' '<= 40 HIGH RISK'Cholesterol in LDL [Mass/Vol]36 mg/dLNormal<=129mg/dLRemisol ChemCholesterol in VLDL [Mass/Vol]14 mg/dLNormal7 - 40 mg/dLRemisol ChemCO2 [Moles/Vol]26 mmol/YBgsvux68 - 31 mmol/LRemisol ChemCreatinine [Mass/Vol]0.8 mg/dLNormal0.5 - 1.3 mg/dLRemisol UxihlNJN61 mL/min/1.73 e4Skeiau>=59mL/min/1.73 u9Pzsmzvv ChemGlobulin (S) [Mass/Vol]2.4 g/dLNormal1.4 - 4.0 gm/dLRemisol Chem Glucose [Mass/Vol]133 mg/iYAiqazn79 - 199 mg/dLRemisol ChemPotassium [Moles/Vol] 4.5 mmol/LNormal3.5 - 5.3 mmol/LRemisol ChemProtein [Mass/Vol]6.6 g/dLNormal6.0 - 7.8 gm/dLRemisol ChemSodium [Moles/Vol]135 mmol/DOyetke080 - 145 mmol/LRemisol ChemTriglyceride [Mass/Vol]69 mg/dLNormal<=149mg/dLRemisol ChemUrea nitrogen [Mass/Vol]12 mg/dLNormal5 - 21 mg/dLRemisol ChemUrea nitrogen/Creatinine [Mass ratio]15 mg/lfLdhyxx16 - 20Remisol ChemCHEMISTRYOrdered By: Robin Manuelorlando on 07-40-1933FeL0g (Bld) [Mass fraction]5.9 %Normal<=5.9%[facility] ChemAutoSSCMPon 21-88-9065Rxzcpwf [Mass/Vol]4.2 g/dLNormal3.3-5.0[facility] Comment on above:Performed By: #### [id number] #### [facility] [address], [place] [address]Gvsovhb/Globulin (S) [Mass conc ratio]1.5Lunmbf2.1-2.2Fisher [facility] HospitalComment on above:Performed By: #### [id number] #### [facility] [address], [place] [address]GEX [Catalytic activity/Vol]67 Int._Unit/PMwqflf54-68PbqptoSamaritan North Health CenterComment on above:Performed By: #### [id number] #### [facility] [address], [place] [address]SQS No additional P-5'-P [Catalytic activity/Vol]15 Int._Unit/L Normal6-46[facility] CenterComment on above:Performed By: #### [id number] #### [facility] [address], [place] [address]Vudvw gap [Moles/Vol]13 mmol/LNormal6-16[facility] CenterComment on above:Performed By: #### [id number] #### [facility] [address], [place] [address]ABU [Catalytic activity/Vol]15 Int._Unit/LNormal5-43[facility] CenterComment on above:Performed By: #### [id number] #### [facility] [address], [place] [address]Qnpikepza [Mass/Vol]1.9 mg/dLHigh0.0-1.1[facility] HospitalComment on above:Performed By: #### [id number] #### [facility] [address], [place] [address]Yqzdmjp [Mass/Vol]8.9 mg/dLNormal8.9-11.1FToledo HospitalComment on above:Performed By: #### [id number] #### [facility] [address], [place] [address]Tdrgvacx [Moles/Vol]101 mmol/NRewgou360-858ZgsqdgSamaritan North Health CenterComment on above:Performed By: #### [id number] #### [facility] [address], [place] [address]NH9 [Moles/Vol]26 mmol/UVprqjq81-71WpamehSamaritan North Health Center Comment on above:Performed By: #### [id number] #### [facility] [address], [place] [address]Ahrlawffrf [Mass/Vol]0.8 mg/dLNormal0.5-1.3FToledo HospitalComment on above:Performed By: #### [id number] #### [facility] [address], [place] [address]Lsmkatno (S) [Mass/Vol]2.4 g/dLNormal1.4-4.0[facility] CenterComment on above:Performed By: #### [id number] #### [facility] [address], [place] [address]Dgkfgzj [Mass/Vol]133 mg/wBEpfrtl09-056XfzgftSamaritan North Health CenterComment on above:Performed By: #### [id number] #### [facility] [address], [place] [address]Fddxptdmv [Moles/Vol]4.5 mmol/LNormal3.5-5.3FToledo HospitalComment on above:Performed By: #### [id number] #### [facility] [address], [place] [address]Yylbgsm [Mass/Vol]6.6 g/dLNormal6.0-7.8[facility] CenterComment on above:Performed By: #### [id number] #### [facility] [address], [place] [address]Kjcftm [Moles/Vol]135 mmol/OHeqzcb917-302WzwtphSamaritan North Health CenterComment on above:Performed By: #### [id number] #### [facility] [address], [place] [address]Dzpg nitrogen [Mass/Vol]12 mg/dLNormal5-21[facility] CenterComment on above:Performed By: #### [id number] #### [facility] [address], [place] [address]Xaee nitrogen/Creatinine [Mass ratio]15 No XdnxkVbnnau71-58 [facility] CenterComment on above:Performed By: #### [id number] #### [facility] [address], [place] [address]PrzZ1syp 42-41-5891DnK2b (Bld) [Mass fraction]5.9 %Normal<=5.9 [facility] CenterComment on above:Performed By: #### [id number] #### [facility] [address], [place] [address]Arnzk Panelon 46-15-3183Pnsdgpqdqal [Mass/Vol]68 mg/dLLow 120-200[facility] Health CenterComment on above:Performed By: #### [id number] #### [facility] [address], [place] [address]Ymbzwzzdlpr in HDL [Mass/Vol]30 mg/dLInvalid Interpretation CodeSamaritan North Health CenterComment on above:Result Comment: '>= 60 LOW RISK' '<= 40 HIGH RISK'Performed By: #### [id number] #### [facility] [address], [place] [address]Prmrnodrcum in LDL [Mass/Vol]36 mg/dLNormal<=129[facility] CenterComment on above:Performed By: #### [id number] #### [facility] [address], [place] [address]Cfwkufhebkv in VLDL [Mass/Vol]14 mg/dLNormal7-40[facility] CenterComment on above:Performed By: #### [id number] #### [facility] [address], [place] [address]Iignwwcfbshr [Mass/Vol]69 mg/dLNormal<=149[facility] CenterComment on above:Performed By: #### [id number] #### [facility] [address], [place] [address]A MA/Cr Ratioon 00-24-5434Czldcch DL <= 20 mg/L (U) [Mass/Vol] mg/dLNormal0.0-1.9[facility] CenterComment on above:Performed By: #### [id number] #### [facility] [address], [place] [address]Yhdkqew/Creatinine DL <= 20 mg/L (U) [Mass ratio]NOT CALCULATED Invalid Interpretation Code.0-30.0[facility] CenterComment on above: Result Comment: 30-300 mg/g Cr indicates an increased risk for diabetic nephropathy. >300 mg/g Cr is consistent with clinical nephropathy.Performed By: #### [id number] #### [facility] [address], [place] [address]P Ywvwtplqpa10.8 mg/dLInvalid Interpretation CodeSamaritan North Health CenterComment on above:Performed By: #### [id number] #### [facility] [address], [place] [address]uKAZuq 96-07-5662kIDK01 mL/min/1.73 d1Dvjccz>=59[facility] CenterComment on above:Performed By: #### [id number] #### [facility] [address], [place] [address]Nebxaolzka Visit Summaryon 69-61-1011Hsghnzhojx Visit Summary Ambulatory Visit Summary CATALINORAMSEY HUANG Redmond :1955 Visit Date:03/12/2024 Ambulatory Visit Instructions Your [...] done Your Care Team Attending Physician - Ina Guevara Primary Care Physician - Ina Guevara This Is Your Medications List Misc [...] (05/13/2019), Laparoscopic cholecystectomy (04/03/2019), TURP - Transurethral resectionof prostate (12/15/2015), Urodynamics (11/02/2015), Total hip replacement [...] Appointments Saturday 9:40 AM EDT With: Where: [address] [id number]- Saturday 10:00 AM EDT With: April DAVIDSON, Dayan Moore Where: [facility] Saturday 10:00 AM EST With: Ina Guevara Where: [address] [id number]- Saturday 8:45 AM EST With: JOCELYN DAVIDSON, Karissa Gray Where: [facility] [address] [place], [place] [address]- Saturday 9:30 AM EDT With: Where: [address] [address]- You Need to Complete the Following Comprehensive Metabolic Panel, Blood, Routine collect, 03/12/24, Order for future visit, Lab Collect, Hypertension, Not Required, Print Label By Order Location HCV Antibody RFX to Quant PCR, Blood, Routine collect, 03/12/24, Order for future visit, Lab Collect, Encounter for hepatitis C screening test for low risk patient, Not Required, Print Label By OrderLocation HgbA1c, Blood, Routine collect, 03/12/24, Order for future visit, Lab Collect, Type 2 diabetes mellitus, Required & Missing, Print Label By Order Location Lipid Panel, Blood, Routine collect, 03/12/24, Order for f (more content not included)...[facility] Medicine Office/Clinic Note on 55-36-1266Haezjj Medicine Office/Clinic NoteFawestborough behavioral [facility] Medicine Office/Clinic Note Chief Complaint Initial Medicare Wellness Review of Systems PHQ Score Initial Depression Screen Score: 0 SCORE Physical Exam Vitals & Measurements HR: 70(Peripheral) BP: 126/68 SpO2: 97% HT: 174 cm HT: 69 in WT: 127.7 kg WT: 280.94 lb BMI: 42.18 Assessment/Plan 1. Medicare annual wellness visit, initial (Z00.00: Encounter for general adult medical examinationwithout abnormal findings) The patient was given a [...] of clutter to prevent tripping and/or falling. [place] Advance Directives reviewed. Documents remain at home, [...] discussed Shingrix vaccine with educational handout and availability.2 COVID vaccines have been administered, with 2 Boosters received. Allergies and medications reviewed and up to date. No concerns with taking medication as prescribed. Reviewed OTC medications, medication list up to date. Blood tests were reviewed: Discussed what tests need to be updated. Labs were ordered, will have completed prior to next PCP visit. Labs to be completed with [facility]. No concerns with bowel/ bladder. Colonoscopy last [...] at this time. 8 minutes spent with screeningand documentation. PHQ2 screening score 0. PHQ9 screening [...] unable to sleep, worrying too much or feelingdown and/or sad with lost of interest with [...] intake. Patient encouraged to increase daily physical activity,adequate water intake and maintain a healthy weight. Pt follows up with PCP with yearly DM foot checks. Reminded patient to perform at home foot checks to prevent future complications, wash with soapand water, apply lotion to bilateral feet and in- between toes to prevent dryness and/or cracking. Wear proper fitting shoes and loose fitting socks and/or hose. Follows up with yearly DM eye exams, Dr. Piper last visit notes have been requested. A1C and microalbumin ordered. 3. Non-ST elevated myocardial infarction (non-STEMI) (I21.4: Non-ST elevation (NSTEMI) myocardial infarction) Patient follows [facility] as directed and prn. 4. Morbid obesity (E66.01: Morbid (severe) obesity due to excess calories) The standard range for ages 18 and older is >=18.5 and < 25 kg/m2. Your BMI 41.18 today was abo (more content not included)...[facility] HospitalComment on above:Result Comment: Electronically Signed By: Ina Guevara\.br\Date and Time Signed: 03/12/24 13:00 EDT\.br\Electronically Co-Signed By: Lacy Rey\.br\Date and Time Co-Signed: 03/12/24 10:53 EDTCHEMISTRY Ordered By: SYSTEM SYSTEM on 00-01-9532Ptfqmfgsq (Vitamin B12) [Mass/Vol]1184 pg/gMIhyhxv04 - 1500 pg/mLRemisol ChemQUINCY VALLEY MEDICAL CENTER Qn2.06 m[IU]/LNormal0.34 - 5.60 mcIU/mLRemisol [facility] TSHon 48-16-2432EVKR THYROTROPIN:ACNC:PT:SER/PLAS:QN: 2.06NOMS HealthcareOriginal Ordering Provider: DO Avi Padgett CL[facility]NCN[facility] 54-36-6068PZF Qn2.06 m[IU]/LNormal0.34-5.60[facility] CenterComment on above:Performed By: #### [id number] #### [facility] [address], [place] [address]Ejadpaguia Healthon 64-79-4115Qvdqjmjuts HealthPopulation Health Problems Ongoing Anticoagulated Atrial fibrillation BMI [...] (05/13/2019), Laparoscopic cholecystectomy (04/03/2019), TURP - Transurethral resectionof prostate (12/15/2015), Urodynamics (11/02/2015), Total hip replacement [...] 2 Flash Glucose Monitoring 14 Day System ([place]), See Instructions freestyle marshal 2 sensors, See [...] - Comments: - - Intervention Frequency Status Railroad Surveyor Review educational material - - Not done [...] - Comments: - - Intervention Frequency Status Railroad Surveyor Review educational material - - Not done [...] - Comments: - - Intervention Frequency Status Railroad Surveyor Complete Annual Medicare Wellness Visit - - Not done - - Referral to Neurology- Dr. Padgett 03/09/24 - - Not done - - Goal: Practice good medication compliance and medication safety Start Date: 2023 Target: - - Status: Not met Barriers: - - Comments: - - Intervention Frequency Status Railroad Surveyor Paramedicine to help with weekly medication set [...] medication-taking reminders - - Not done - -[facility] HospitalInterdisciplinary Note - Social Workersuzy 00-08-8331Aamdxsumwgljnrhfo Note - Social WorkerInterdisciplinary Note - Outsole Compressor Consult was received for needed resources after his previous appointment. SW made tc today to patient's sister, Rohan to discuss. She states they currently have everything they need. She states that the [facility] is working on HH and dietary needs. Paramedicine is also arranged. SW let her know to reach out should further needs arise. SW will remain available.[facility] Population Healthon [phone] Health Case Information Case Priority: None Programs: -- Referral Source: Reflector Driller [employer] Deburrer Referral Reason: Disease management Case Type: Chronic Care Management Risk Score: -- Case Status: New (February 10, 2024) Date Assigned: February 10, 2024 Assigned By: Wayne Nunes Date Enrolled: -- Assigned Primary Personnel: Wayne Nunes Assigned Secondary Personnel: -- Case Physician: Ina Guevara Problems Ongoing Anticoagulated Atrial fibrillation BMI [...] (05/13/2019), Laparoscopic cholecystectomy (04/03/2019), TURP - Transurethral resectionof prostate (12/15/2015), Urodynamics (11/02/2015), Total hip replacement [...] 2 Flash Glucose Monitoring 14 Day System ([place]), See Instructions freestyle marshal 2 sensors, See [...] Tobacco Use:. Never Smokeless Tobacco Use:. Cigarettes, Householdtobacco concerns: No. Yes, 02/17/2024 Family History COPD: Sister. Cardiac arrhythmia: Brother. Diabetes mellitus type 2: Mother. Heart failure: Mother. Hyperthyroidism: Mother. Metastatic cancer: Father and Brother. Stroke: Mother. Screenings and Assessments 02/25/24 10:00:00 Result Name Value Comment HIPPA Verified Type of Contact In person at home Information Given by Self CM Preferred Spoken Language Malawian CM Preferred Written Language Malawian Preferred Communication Mode Verbal Ability to Read/Write Able to read, Able to write CM Caregiver's Preferred Spoken Language [place]ian CM Caregivers Preferred Written Language Mal[place]ian Director Rehabilitation Program Called No Preferred Method of Contact Cell Cell Best Time to Visit or Contact 7-10 am Best Day to Visit or Contact No preference Appointment Reminders Phone, Other secured messaging Preferred Way to Send PHI Other secured messaging Preferred Mailing Address [address] [place] [address] Learning Style Pref Patient Video/Educational TV Learning [...] no significant cognitive impairm (more content not included)...Normal [facility] CenterAmbulatory Visit Summaryon [id number] Visit SummaryAmbulatory Visit Summary HUANG ROBLES :1955 Visit Date:02/17/2024 Ambulatory Visit Instructions Your Diagnosis Diabetes Your Care Team Attending Physician - Ina Guevara Primary Care Physician - Ina Guevara This Is Your Medications List Misc Prescription (Freestyle Marshal 2 Flash Glucose Monitoring 14 Day System ([place])) Misc Prescription (Freestyle Marshal 3 Flash Glucose [...] (05/13/2019), Laparoscopic cholecystectomy (04/03/2019), TURP - Transurethral resectionof prostate (12/15/2015), Urodynamics (11/02/2015), Total hip replacement [...] Appointments 2023 9:30 AM EDT With: Where: [address] [address]- Saturday 10:00 AM EDT With: April DAVIDSON, Dayan Moore Where: [facility] Saturday 10:00 AM EST With: Ina Guevara Where: [address] [address]- Saturday 8:45 AM EST With: Karissa BANKS MD Where: [facility] [address] [place] [address]- Medications What How Much When Why Instructions [...] mcg/ inh inhalation aerosol) 2 Puffs Inhalation 2times a day COPD mixed type Duration: 30 Days Unchanged magnesium oxide 500 Milligram By Mouth At bedtime Unchanged metformin (MetFORMIN (Eqv-Glucophage XR) 500 mg oral tablet, extended release) See instructions TAKE 1 TABLET BY MOUTH TWICE A DAY FOR 90 DAYS Unchanged metoprolol (Toprol-XL) 25 Milligram By Mouth Every day Unchanged Misc Prescription (Freestyle Marshal 2 Flash Glucose Monitoring 14 Day System ([place])) Seeinstructions Type 2 diabetes mellitus Freestyle Marshal 2 Flash Glucose Monitoring 14 Day System ([place]) Unchanged Misc Prescription (freestyle marshal 2 sensors) See instructions Type 2 diabetes mellitus check blood sugar 4 times per day Unchanged Misc Prescription (Freestyle Marshal 3 Flash Glucose Monitoring 14 Day System (Sensor)) Seeinstructions Non-ST elevated myocardial infarction (non- STEMI) Forgetfulness 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 Type 2 diabetes mellitus BMI 45.0-49.9, adult Non-smoker Freestyle Marshal 3 Flash Glucose Monitoring 14 Day System (Sensor). Replace sensor every 14 days. Unchanged Misc Prescription (Freestyle Marshal 3 sensors) See instructions Type 2 diabetes mellitus BMI 45.0-49.9, adult Non-smoker change as needed Unchanged nitroglycerin 0.4 Milligram Sublingual Every 5 minutes as needed for Chest pain Duration:3 Doses Unchanged ocular lubricant (Refresh) 1 Drops Both eyes As needed for Dry eyes Unchanged potassium chloride 10 Milliequivalent By Mouth Every other day Unchanged spironolactone (spironolactone 25 mg Tab) 1 Tablets By Mouth Every day Unchanged tolterodine (to (more content not included)...[facility] [phone] Health Case Information Case Priority: None Programs: -- Referral Source: Reflect[employer]iller [employer] Deburrer Referral Reason: Care coordination Case Type: Transition Care Management Risk Score: -- Case Status: Enrolled (January 16, 2024) Date Assigned: January 16, 2024 Assigned By: Wayne Nunes Date Enrolled: January 16, 2024 Assigned Primary Personnel: Wayne Nunes Assigned Secondary Personnel: -- Case Physician: Ina Guevara Problems Ongoing Anticoagulated Atrial fibrillation BMI [...] (05/13/2019), Laparoscopic cholecystectomy (04/03/2019), TURP - Transurethral resectionof prostate (12/15/2015), Urodynamics (11/02/2015), Total hip replacement [...] 2 Flash Glucose Monitoring 14 Day System ([place]), See Instructions freestyle marshal 2 sensors, See [...] Tobacco Use:. Never Smokeless Tobacco Use:. Cigarettes, Householdtobacco concerns: No., 01/20/2024 Family History COPD: Sister. [...] with medications. CN to update pt caregiver, Carley,and schedule intake. Communication Events Date: February 10, 2024 Method: Phone call Type: Outbound Duration (min): 22 Outcome: Case discussion Contac (more content not included)...[facility] HospitalActivated partial thromboplastin time (aPTT) in platelet poor plasma by coagulation aOrdered By: Kyleigh Maciel on 61-48-6294xVBE Coag (PPP) [Time] 31.9 s25.1-36.5FFort Hamilton HospitalComment on above:A hematocrit value greater than 55% may lead to inaccurate results in coagulation testing. Patientshaving hematocrit values >55% require a special collection tube for coagulation studies. Please contact the laboratory at [phone] for redraw instructions.Automated basophil %Ordered By: Kyleigh Maciel on 02-04-2024 Basophils/100 WBC (Bld)0.9 %Normal.[facility] Hospital - AkronComment on above:Performed By: #### LIPID, PP, CREAT, CBC, BUN, LYTES #### [place] [address] USAAutomated basophil countOrdered By: Kyleigh Maciel on 45-61-0327Assqreiys (Bld) [#/Vol]0.1 10*3/uLNormal0.0-0.2FFort Hamilton HospitalComment on above:Result Comment: PERFORMED BY: [place] [address] PATHOLOGIST EXECUTIVE TEAM LEADER DEENA ESCOBAR M.D.Performed By: #### LIPID, PP, CREAT, CBC, BUN, LYTES #### [place] [address] USAAutomated blood monocyte countOrdered By: Kyleigh Maciel on 10-10-6201Ytjguhxwy (Bld) [#/Vol]0.6 10*3/uLNormal0.0-0.8[facility] Hospital - AkronComment on above:Performed By: #### LIPID, PP, CREAT, CBC, BUN, LYTES #### [place] [address] USAAutomated eosinophil %Ordered By: Kyleigh Maciel on 02-04-2024 Eosinophils/100 WBC (Bld)1.8 %Normal.[facility] Hospital - AkronComment on above:Performed By: #### LIPID, PP, CREAT, CBC, BUN, LYTES #### [facility] [address] [place] [address] USAAutomated eosinophil countOrdered By: Kyleigh Maciel on 67-13-6289Ueouotkfthl (Bld) [#/Vol]0.1 10*3/uLNormal0.0-0.45[facility] - AkronComment on above:Performed By: #### LIPID, PP, CREAT, CBC, BUN, LYTES #### [place] [address] USAAutomated monocyte %Ordered By: Kyleigh Maciel on 02-04-2024 Monocytes/100 WBC (Bld)8.4 %Normal.[facility] - AkronComment on above:Performed By: #### LIPID, PP, CREAT, CBC, BUN, LYTES #### [place] [address] USAAutomated neutrophil %Ordered By: Kyleigh Maciel on 02-04-2024 Neutrophils/100 WBC (Bld)72.8 %Normal.[facility] - AkronComment on above:Performed By: #### LIPID, PP, CREAT, CBC, BUN, LYTES #### [facility] [address] [place] [address] USACarbon dioxide, total [Moles/volume] in Serum or Plasma Ordered By: Kyleigh Maciel on 15-85-1009LL8 [Moles/Vol]23.2 mmol/HKekntr33.0-31.0 [facility] - AkronComment on above:Performed By: #### LIPID, PP, CREAT, CBC, BUN, LYTES #### [facility] [address] [place] [address] USAChloride [Moles/volume] in Serum or PlasmaOrdered By: Kyleigh Maciel on 53-93-8581Unbqghfu [Moles/Vol]100 mmol/MWhflty81-446WwmhqgstvSelect Medical Specialty Hospital - AkronComment on above:Performed By: #### LIPID, PP, CREAT, CBC, BUN, LYTES #### [facility] [address] [place] [address] USACholesterol [Mass/volume] in Serum or PlasmaOrdered By: Kyleigh Maciel on 20-84-3978Ttetviobwxs [Mass/Vol]54 mg/mFIfs374-056GnmjgzqcsSelect Medical Specialty Hospital - AkronComment on above:Chol less than 200 mg/dl low riskChol 201-239 mg/dl borderline riskChol 240 mg/dl and greater high riskResult Comment: Chol less than 200 mg/dl low risk Chol 201-239 mg/dl borderline risk Chol 240 mg/dl and greater high riskPerformed By: #### LIPID, PP, CREAT, CBC, BUN, LYTES #### [facility] [address] [place] [address] USACholesterol in LDL Calc [Mass/Vol]Ordered By: Kyleigh Maciel on 32-79-9196Kfcxssnsdbj in LDL [Mass/Vol]16 mg/dL0-100[facility] - AkronComment on above:LDL ATP III CLASSIFICATIONLDL less than 100 mg/dL OptimalLDL 100-129 mg/dL Near or above runiuuuPNA887-143 mg/dL Borderline highLDL 160-189 mg/dL HighLDL greater than 189 mg/dL Very highCholesterol in VLDL Calc [Mass/Vol]Ordered By: Kyleigh Maciel on 26-79-7911Anyiasralld in VLDL [Mass/Vol]11 mg/dLSelect Medical Specialty Hospital - AkronCoagulation Profileon 40-33-7284oZDJ Coag (Bld) [Time]31.9 tCvmtww42.1-36.5[facility] Physician GroupComment on above:Result Comment: A hematocrit value greater than 55% may lead to inaccurate results in coagulation testing. Patients having hematocrit values >55% require a special collection tube for coagulation studies. Please contact the laboratory at [phone] for redraw instructions. PERFORMED BY: [facility] [address] [place] [address] PATHOLOGIST EXECUTIVE TEAM LEADER DEENA ESCOBAR M.D.Performed By: #### LIPID, PP, CREAT, CBC, BUN, LYTES #### [place] [address] USAComplete Blood Count Auto Diffon 91-05-8186Glmj Corpuscular HGB Conc34.4 g/aIDnqhap18.5-35.6[facility] Physician GroupComment on above:Performed By: #### LIPID, PP, CREAT, CBC, BUN, LYTES #### [place] [address] USANRBC%0.1 /100{WBC}Normal0-0.5[facility] Comment on above:Performed By: #### LIPID, PP, CREAT, CBC, BUN, LYTES #### [place] [address] USACreatinineon 45-31-2865Vbfbirahye Clr Calc Nsrhyseu376.26 NormalHca [facility] Physician [facility] HospitalComment on above:Performed By: #### LIPID, PP, CREAT, CBC, BUN, LYTES #### [place] [address] USAGFR/1.73 sq M.predicted MDRD (S/P/Bld) [Vol rate/Area] mL/min/{1.73_m2}[facility] Physician [facility] HospitalComment on above:Performed By: #### LIPID, PP, CREAT, CBC, BUN, LYTES #### [place] [address] USACreatinine [Mass/volume] in Serum or PlasmaOrdered By: Kyleigh Maciel on 69-09-1271Htnitdiher [Mass/Vol]0.86 mg/dLNormal0.70-1.30[facility] - AkronComment on above:Performed By: #### LIPID, PP, CREAT, CBC, BUN, LYTES #### [place] [address] USAECG 12 lead ECGon 20-44-3105NJX 12 lead ECGREGENC[facility] [place] [address] [place] [address] Electrocardiograph Report Signed Patient: Huang Robles MR#: [id number] 82 : 1955 Acct:[id number] Age/Sex: 68 / M ADM Date: 02/04/24 Loc: Room: Type: [facility] Attending Dr: Kyleigh Maciel DO Ordering Provider: Kyleigh Maciel DO Date of Service: 02/04/24 ECG/ECG 12 lead ECG: [facility] Copies to: Test Reason : Blood Pressure : */* mmHG Vent. Rate : 74 BPM Atrial Rate : * BPM P-R Int : * ms QRS Dur : 140 ms QT Int : 426 ms P-R-T Axes : * 104 30 degrees QTcB Int : 472 ms Atrial fibrillation Right bundle branch block Abnormal ECG Confirmed by BRADLEY ANTONIO MD ([facility]) on 02/11/2024 8:47:12 PM Referred By: Electronically Signed By: BRADLEY ANTONIO MD Transcribed By: MUS Signed By Bradley Antonio MD 0 02/11/242046[facility] Physician GroupErythrocyte distribution width [Ratio] by Automated countOrdered By: Kyleigh Maciel on 76-20-5259Endbjxwqtof distribution width (RBC) [Ratio]14.4 %Xdomdx88.0-14.8[facility] Hospital - AkronComment on above:Performed By: #### LIPID, PP, CREAT, CBC, BUN, LYTES #### [facility] [address] [place] [address] USAErythrocytes [#/volume] in Blood by Automated countOrdered By: Kyleigh Maciel on 79-94-8956YDT (Bld) [#/Vol]3.99 10*6/uLNormal3.90-5.60 [facility] - AkronComment on above:Performed By: #### LIPID, PP, CREAT, CBC, BUN, LYTES #### [facility] [address] [place] [id number] USAHematocrit [Volume Fraction] of Blood by Automated count Ordered By: Kyleigh Maciel on 06-54-3051Dotyklmziy (Bld) [Volume fraction]37.2 %Low 38.8-50.0[facility] Hospital - AkronComment on above:Performed By: #### LIPID, PP, CREAT, CBC, BUN, LYTES #### [facility] [address] [place] [address] USAHemoglobin [Mass/volume] in BloodOrdered By: Kyleigh Maciel on 83-51-3407Fcwqpkpmph (Bld) [Mass/Vol]12.8 g/dLLow13.0-17.0[facility] - AkronComment on above:Performed By: #### LIPID, PP, CREAT, CBC, BUN, LYTES #### [facility] [address] [place] [address] USAINR in Platelet poor plasma by Coagulation assayOrdered By: Kyleigh Maciel on 34-88-7482ZUK Coag (PPP) [Relative time]1.3 {INR}Normal [facility] Hospital - AkronComment on above:INR Therapeutic Range A) Pre- and Peroperative OAT started two weeks before surgery. NOT HIP SURGERY: 1.5 - 2.5 HIP SURGERY: 2 - 3B) Primary and secondary prevention of venous THROMBOSIS: 2 - 3C) Active venous thrombosis, pulmonary embolismand prevention of recurrent venous thrombosis: 2 - 3D) Prevention of arterial thromboembolismincluding patients with mechanical heart valves: 3 - 4.5Result Comment: INR Therapeutic Range A) Pre- and [...] patients with mechanical heart valves: 3 - 4.5Performed By: #### LIPID, PP, CREAT, CBC, BUN, LYTES #### [facility] [address] [place] [address] USALeukocytes [#/volume] corrected for nucleated erythrocytes in Blood by Automated counOrdered By: Kyleigh Maciel on 62-44-3287KIU corrected for nucl RBC Auto (Bld) [#/Vol]7.2 10*3/uL4.1-10.5FFort Hamilton Hospital Leukocytes [#/volume] in Blood by Automated countOrdered By: Kyleigh Maciel on 82-01-1018TDL (Bld) [#/Vol]7.2 10*3/uLNormal4.1-10.5FFort Hamilton HospitalComment on above:Performed By: #### LIPID, PP, CREAT, CBC, BUN, LYTES #### [facility] [address] [place] [id number] USALipid Panelon 04-23-5222KBM Cholesterol,Vesqbrxppd25 mg/dL Normal0-100[facility] Physician [facility] HospitalComment on above:Result Comment: LDL ATP III CLASSIFICATION LDL less than 100 mg/dL Optimal LDL 100-129 mg/dL Near or above optimal LDL 130-159 mg/dL Borderline high LDL 160-189 mg/dL High LDL greater than 189 mg/dL Very highPerformed By: #### LIPID, PP, CREAT, CBC, BUN, LYTES #### [facility] [address] [place] [id number] USATriglyceride w/Emoyfh84 mg/dLNormal0-149[facility] Physician [facility] HospitalComment on above:Result Comment: TRIG ATP III CLASSIFICATION TRIG less than 150 mg/dL Normal TRIG 150-199 mg/dL Borderline high TRIG 200-500 mg/dL High TRIG greater than 500 mg/dL Very high Standard traceable to the Center for Disease Conrtrol and Prevention (CDC) test method.Performed By: #### LIPID, PP, CREAT, CBC, BUN, LYTES #### [place] [id number] USAVLDL KNWYOEZCZDL15 mg/dLNormalThe [facility] Physician [facility] HospitalComment on above:Performed By: #### LIPID, PP, CREAT, CBC, BUN, LYTES #### [facility] [address] [place] [id number] USALymphocytes [#/volume] in Blood by Automated countOrdered By: Kyleigh Maciel on 14-46-4875Lqqlcinxkho (Bld) [#/Vol]1.2 10*3/uLNormal1.00-4.8 [facility] - AkronComment on above:Performed By: #### LIPID, PP, CREAT, CBC, BUN, LYTES #### [facility] [address] [place] [address] USALymphocytes/100 leukocytes in Blood by Automated count Ordered By: Kyleigh Maciel on 70-36-2247Gxddmezxpau/100 WBC (Bld)16.1 %Normal. [facility] - AkronComment on above:Performed By: #### LIPID, PP, CREAT, CBC, BUN, LYTES #### [facility] [address] [Entitic mass] by Automated countOrdered By: Kyleigh Maciel on 90-22-7504FCU (RBC) [Entitic mass]32.0 fdXvuqcw61.5-35.2FFort Hamilton HospitalComment on above:Performed By: #### LIPID, PP, CREAT, CBC, BUN, LYTES #### [address] Auto (RBC) [Mass/Vol]Ordered By: Kyleigh Maciel on 50-43-8172QJTI (RBC) [Mass/Vol]34.4 g/dL32.5-35.6FFort Hamilton HospitalMCV [Entitic volume] by Automated countOrdered By: Kyleigh Maciel on 02-04-2024 MCV (RBC) [Entitic vol]93.2 zMQdnxnm04.5-101[facility] Comment on above:Performed By: #### LIPID, PP, CREAT, CBC, BUN, LYTES #### [place] [address] USANeutrophils [#/volume] in Blood by Automated countOrdered By: Kyleigh Maciel on 18-08-4932Qrnplwqsyer (Bld) [#/Vol]5.3 10*3/uLNormal1.8-7.7 [facility] - AkronComment on above:Performed By: #### LIPID, PP, CREAT, CBC, BUN, LYTES #### [facility] [address] [place] [address] USANo Panel InformationOrdered By: Kyleigh Maciel on 02-04-2024 Estimated GFR (CKD-EPI)> 60.0 mL/MinSelect Medical Specialty Hospital - AkronPharmacy Creatinine Clearance (Xlvj191.26Select [facility] Special[facility] Hospital - AkronNucleated erythrocytes [Presence] in Blood by Automated countOrdered By: Kyleigh Maciel on 12-03-6148Mukgizdkr RBC Auto Ql (Bld)0.1 /100{WBC}0-0.5FFort Hamilton HospitalPlatelet mean volume [Entitic volume] in Blood by Automated count Ordered By: Kyleigh Maciel on 32-82-2446Gqlswkmi mean volume (Bld) [Entitic vol]7.8 fLNormal6.6-10.1FFort Hamilton HospitalComment on above:Performed By: #### LIPID, PP, CREAT, CBC, BUN, LYTES #### [facility] [address] [place] [address] USAPlatelets [#/volume] in Blood by Automated countOrdered By: Kyleigh Maciel on 47-90-0289Vhaubdhvx (Bld) [#/Vol]240 10*3/bFNmqowo214-157 [facility] - AkronComment on above:Performed By: #### LIPID, PP, CREAT, CBC, BUN, LYTES #### [facility] [address] [place] [id number] USAPotassium [Moles/volume] in Serum or PlasmaOrdered By: Kyleigh Maciel on 25-99-1339Wqratrwaa [Moles/Vol]3.7 mmol/LNormal3.5-5.1FFort Hamilton HospitalComment on above:Performed By: #### LIPID, PP, CREAT, CBC, BUN, LYTES #### [facility] [address] [place] [id number] USAProthrombin time (PT)Ordered By: Kyleigh Maciel on 11-22-8845RQ Coag (PPP) [Time]15.0 sHigh9.0-12.9[facility] Hospital - AkronComment on above:A hematocrit value greater than 55% may lead to inaccurate results in coagulation testing. Patientshaving hematocrit values >55% require a special collection tube for coagulation studies. Please contact the laboratory at [phone] for redraw instructions.Result Comment: A hematocrit value greater than 55% may lead to inaccurate results in coagulation testing. Patients having hematocrit values >55% require a special collection tube for coagulation studies. Please contact the laboratory at [phone] for redraw instructions.Performed By: #### LIPID, PP, CREAT, CBC, BUN, LYTES #### [facility] [address] [place] [address] USASerum or plasma anion gap determinationOrdered By: Kyleigh Maciel on 34-07-8406Edvav gap [Moles/Vol]13.5 mmol/LNormal6.0-15.0[facility] - AkronComment on above:Performed By: #### LIPID, PP, CREAT, CBC, BUN, LYTES #### [place] [id number] USASerum or plasma high density lipoprotein (HDL) cholesterol measurementOrdered By: Kyleigh Maciel on 08-55-9949Qgogkslxngg in HDL [Mass/Vol]27 mg/nMSyeopc45-30CeqpgaqgbSelect Medical Specialty Hospital - AkronComment on above:HDL CHOL ATP- III CLASSIFICATION Cardiovascular RiskHDL > or equal to 60 mg/dL LOWHDL < 40 mg/dL HIGHResult Comment: HDL CHOL ATP-III CLASSIFICATION Cardiovascular Risk HDL > or equal to 60 mg/dL LOW HDL < 40 mg/dL HIGHPerformed By: #### LIPID, PP, CREAT, CBC, BUN, LYTES #### [place] [address] USASerum or plasma total cholesterol/high density lipoprotein (HDL) cholesterol mass ratOrdered By: Kyleigh Maciel on 02-04-2024 Cholesterol.total/Cholesterol in HDL [Mass ratio]2.0 {ratio}Normal<5.0[facility] Hospital - AkronComment on above:Result Comment: PERFORMED BY: [place] [address] PATHOLOGIST EXECUTIVE TEAM LEADER DEENA ESCOBAR M.D.Performed By: #### LIPID, PP, CREAT, CBC, BUN, LYTES #### [place] [address] USASodium [Moles/volume] in Serum or PlasmaOrdered By: Kyleigh Maciel on 82-93-5890Fvjkmr [Moles/Vol]133 mmol/YYai871-741YwjdzurniSelect Medical Specialty Hospital - AkronComment on above:Performed By: #### LIPID, PP, CREAT, CBC, BUN, LYTES #### [facility] [address] [place] [address] USATriglyceride [Mass/volume] in Serum or PlasmaOrdered By: Kyleigh Maciel on 99-78-3753Wjvcdekectch [Mass/Vol]55 mg/dL0-149[facility] - AkronComment on above:TRIG ATP III CLASSIFICATIONTRIG less than 150 mg/dL NormalTRIG 150-199 mg/dL Borderline highTRIG 200-500 mg/dL High TRIG greater than 500 mg/dL Very highStandard traceable to the Center for Disease Co nrtrol and Prevention (CDC) test method.Urea nitrogen [Mass/volume] in Serum or PlasmaOrdered By: Kyleigh Maciel on 80-37-8165Erge nitrogen [Mass/Vol]19 mg/dLNormal 7-25[facility] Hospital - AkronComment on above:Performed By: #### LIPID, PP, CREAT, CBC, BUN, LYTES #### [facility] [address] [place] [address] [facility] 20-62-0784NwvmdbrjpfEncompass Health Case Information Case Priority: None Programs: -- Referral Source: Reflector Driller And Deburrer Referral Reason: Care coordination Case Type: Transition Care Management Risk Score: -- Case Status: Enrolled (January 16, 2024) Date Assigned: January 16, 2024 Assigned By: Wayne Nunes Date Enrolled: January 16, 2024 Assigned Primary Personnel: Wayne Nunes Assigned Secondary Personnel: -- Case Physician: Ina Guevara Problems Ongoing Anticoagulated Atrial fibrillation BMI [...] (05/13/2019), Laparoscopic cholecystectomy (04/03/2019), TURP - Transurethral resectionof prostate (12/15/2015), Urodynamics (11/02/2015), Total hip replacement [...] 2 Flash Glucose Monitoring 14 Day System ([place]), See Instructions freestyle marshal 2 sensors, See [...] Tobacco Use:. Never Smokeless Tobacco Use:. Cigarettes, Householdtobacco concerns: No., 01/20/2024 Family History COPD: Sister. [...] being back in his own bed this hascame back. CN discussed some postural changes/ suggestions [...] (min): 19 Outcome: Case discussion Contact Type: spa coordinator Contact Name: Wayne Nunes Notes: TCM#3- see tcm note. Created By: Wayne Nunes Date: January 27, 2024 Method: Phone kathryn (more content not included)...Desiree [place] [facility] [id number] Case Information Case Priority: None Programs: -- Referral Source: Ref[employer]bur[employer] Referral Reason: Care coordination Case Type: Transition Care Management Risk Score: -- Case Status: Enrolled (January 16, 2024) Date Assigned: January 16, 2024 Assigned By: Wayne Nunes Date Enrolled: January 16, 2024 Assigned Primary Personnel: Wayne Nunes Assigned Secondary Personnel: -- Case Physician: Ina Guevara Problems Ongoing Anticoagulated Atrial fibrillation BMI [...] (05/13/2019), Laparoscopic cholecystectomy (04/03/2019), TURP - Transurethral resectionof prostate (12/15/2015), Urodynamics (11/02/2015), Total hip replacement [...] 2 Flash Glucose Monitoring 14 Day System ([place]), See Instructions freestyle marshal 2 sensors, See [...] Tobacco Use:. Never Smokeless Tobacco Use:. Cigarettes, Householdtobacco concerns: No., 01/20/2024 Family History COPD: Sister. Cardiac arrhythmia: Brother. Diabetes mellitus type 2: Mother. Heart failure: Mother. Hyperthyroidism: Mother. Metastatic cancer: Father and Brother. Stroke: Mother. Screenings and Assessments 01/16/24 09:44:00 Result Name Value Comment Phone Call Monitoring Consent Agreed to continue call Phone Verification Patient Information Full name, street address and date of verified Program Enrollment Provides verbal consent for enrollment [...] swelling' in his legs. Patient notes his sisterand him went grocery shopping and he did get some healthier food options. Patient noted he is staying away from salt. BP 117/76. CN discussed how to properly check BP at home. Reviewed symptoms of low BP. Patient reports left radial access site is 'clearing up.' Patient notes jesi (more content not included)...[facility] HospitalAmbulatory Visit Summaryon [id number] Visit SummaryAmbulatory Visit Summary HUANG ROBLES :1955 Visit Date:01/20/2024 Ambulatory Visit Instructions Your Diagnosis Non-smoker BMI 45.0-49.9, adult Your Care Team Attending Physician - Ina Guevara Primary Care Physician - Ina Guevara This Is Your Medications List [facility] [place] Prescription (Freestyle Marshal 2 Flash Glucose Monitoring 14 Day System ([place])) Mis Prescription (freestyle marshal 2 sensors) albuterol (Albuterol (Eqv-Ventolin HFA) 90 mcg/inh inhalation aerosol) apixaban (Eliquis) ascorbic acid (Vitamin C 500 mg Tab) aspirin atorvastatin bumetanide clopidogrel cyanocobalamin (Vitamin B12) dapagliflozin (Farxiga) dextromethorphan-guaifenesin (Tussin DM Sugar Free) esomeprazole (esomeprazole 20 [...] (05/13/2019), Laparoscopic cholecystectomy (04/03/2019), TURP - Transurethral resectionof prostate (12/15/2015), Urodynamics (11/02/2015), Total hip replacement [...] Follow-Up Appointments Saturday 10:00 AM EDT With: Ina Guevara Where: [address] [phone]- 2023 9:30 AM EDT With: Where: [address] [phone]- Saturday 10:00 AM EDT With: April DAVIDSON, Dayan Moore Where: Pulmonary Clinic Saturday 8:45 AM EST With: Karissa BANKS MD Where: [facility] [address] [place], [place] [id number]- Medications What How Much When Why Instructions [...] 10 Milligram By Mouth Every day Unchanged dextromethorphan-guaifenesin (Tussin DM Sugar Free) 10 Milliliter As needed for Congestion Unchanged esomeprazole (esomeprazole 20 mg Cap-DR) ORAL, 0 Refill(s), Take by mouth. Unchanged fluticasone 50 Microgram Inhalation As needed for Allergy symptoms Unchanged formoterol-mometasone (Dulera 100 mcg-5 mcg/ inh inhalation aerosol) 2 Puffs Inhalation 2times a day COPD mixed type Duration: 30 [...] 2 Flash Glucose Monitoring 14 Day System ([place])) Seeinstructions Type 2 diabetes mellitus Freestyle Marshal 2 Flash Glucose Monitoring 14 Day System ([place]) Unchanged Misc Prescription (freestyle marshal 2 sensors) See instructions Type 2 diabetes mellitus check blood sugar 4 times per day Unchanged multivitamin with minerals (ICaps AREDS oral tablet) 1 Tablets By Mouth Every day Unchanged nitroglycerin 0.4 Milligram Sublingual Every 5 minutes as needed for Chest pain Duration:3 Doses Unchanged ocular lubricant (Refresh) 1 Drops Both eyes As needed for Dry eyes Unchanged oxymetazoline nasal (Nasal Mist) 2 Sprays Nasal Inhalation As needed for Allergy symptoms Unchanged (more content not included)...[facility] Medicine Office/Clinic Noteon [phone] Medicine Office/Clinic NoteFawestborough behavioral [facility] hospital Medicine Office/Clinic Note HPI Staff Huang is a 68 year old male presenting ER followup: Hospital: [facility] Visit date: 01/12/24 Symptoms the patient presented with: Chest pain, had heart attack Current concerns: would like to go over everything with you today Transferred [facility] on 7/21- Stent put in states he has 2 blocked arteries Sees Fixer Supervisor on 01/22/24 History of Present Illness pt [...] health come in for evaluation. he needs helpwith basic daily activities and really needs help with medication set up. pt is following up with cardiology on Saturday. they have questions about cardiac rehab. He would like to do it in [place] if possible. RTC 1 month Ordered: [facility] [place] Prescription, Freestyle Marshal 3 Flash Glucose Monitoring 14 Day System (Sensor), See Instructions, 6 EA, 1, Freestyle Marshal 3 Flash Glucose Monitoring 14 Day System (Sensor). Replace sensor every 14 days., [id number], Supply, 174, cm, 01/20/24 10:48:00 EDT,... Ambulatory Home Health Orders [facility] Internal Ambulatory Referral Outsole Compressor - Ambulatory Referral TCM [facility] 7 day disch 94274 2. Forgetfulness (R68.89: Other general symptoms and [...] 01/20/24 10:48:00 EDT,... Ambulatory Home Health Orders [facility] External Ambulatory Referral Outsole Compressor - Ambulatory Referral [facility] 7 day disch 02435 3. 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 Ambulatory Home Health Orders [facility] External Ambulatory Referral Outsole Compressor - Ambulatory Referral [facility] 7 day disch 13805 4. Type 2 diabetes mellitus (E11.9: Type [...] 130, kg, 01/20/24 10:48:00 EDT, Weight Dosing [facility] Internal Ambulatory Referral TCM Trans [facility] 7 day disch 68706 5. BMI 45.0-49.9, adult (Z68.42: Body mass [...] Supply, 174, cm (more content not included)... [facility] HospitalComment on above:Result Comment: Electronically Signed By: Leroy DAMON, Ina Nagel\.br\Date and Time Signed: 01/20/24 13:03 NZH23fa [id number] Discharge Call Good afternoon, I am Hoda Longoria RN a lead nurse from [facility]. I am calling you to follow [...] was great. Patient Name Huang Robles Date 01/16/2024NormalUniversity 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 [Other]NormalOhioHealth Berger HospitalBASIC METABOLIC PANELon 67-81-1140Tlouy gap [Moles/Vol]14 mmol/LNormal 7-20UnOhioHealth Dublin Methodist HospitalComment on above:Performed By: #### [id number] #### [facility] ([facility]AKER) [address] [place], [place] [address]Lclizxp [Mass/Vol]8.6 mg/dLNormal8.6-10.3UnOhioHealth Dublin Methodist HospitalComment on above:Performed By: #### [id number] #### [facility] ([facility]ER) [address] [place], [place] [address]Uroluyje [Moles/Vol]100 mmol/JMrhozq13-389KudpiksqebOhioHealth Dublin Methodist HospitalComment on above:Performed By: #### [id number] #### [facility] [address] [place] [address]FQ7 [Moles/Vol]24 mmol/CDhuwhg29-87WjupznjljmOhioHealth Dublin Methodist HospitalComment on above:Performed By: #### [id number] #### [facility] ([facility]) [address] [place] [address]Kobykhvpah [Mass/Vol]0.74 mg/dLNormal0.70-1.30UnOhioHealth Dublin Methodist HospitalComment on above:Performed By: #### [id number] #### [facility] ([facility]) [address] [place] [address]OZPNNSCPZY FILTRATION RATE ML/MIN/1.73 SQ M.RJVACQGZN19.7 mL/min/1.73m*2Normal>60.0UnOhioHealth Dublin Methodist HospitalComment on above: Result Comment: [facility]???s estimated glomerular filtration rate (eGFR) will [...] potential consequences that do not disproportionately affect anyone group of individuals.Performed By: #### [id number] #### [facility] ([facility]) [address] [place] [address]Gaostcd [Mass/Vol]136 mg/bDRgmp96-535WzcjnenfdeOhioHealth Dublin Methodist HospitalComment on above:Performed By: #### [id number] #### [facility] ([facility]) [address] [place] [address]Wjbegomgg [Moles/Vol]3.3 mmol/LLow3.5-5.1UnOhioHealth Dublin Methodist HospitalComment on above:Performed By: #### [id number] #### [facility] ([facility]) [address] [place], [place] [address]Zorlzt [Moles/Vol]135 mmol/FUbs561-739TkrigbszmeOhioHealth Dublin Methodist HospitalComment on above:Performed By: #### [id number] #### [facility] ([facility]) [address] [place] [address]Rsjd nitrogen [Mass/Vol]10 mg/dLNormal7-25UnOhioHealth Dublin Methodist HospitalComment on above:Performed By: #### [id number] #### [facility] ([facility]) [address] [place] [address]UTWO NITROGEN/CREATININE (MASS RATIO) IN SER/PLAS13.5Normal [facility] HospitalComment on above:Performed By: #### [id number] #### [facility] ([facility]) [address] [place] [address]TIPze 91-28-1811Jmubppxclvo distribution width (RBC) [Ratio]13.4 %Ohtbcn38.5-15.0UnOhioHealth Dublin Methodist HospitalComment on above:Performed By: #### [id number] #### [facility] ([facility]) [address] [place] [address]BJANSHMWXFI MEAN CORPUSCULAR HEMOGLOBIN CONCENTRATION (G/DL) BY WXVPGALYZ31.9 g/cGCcioyq32.0-35.0UnOhioHealth Dublin Methodist HospitalComment on above:Performed By: #### [id number] #### [facility] ([facility]) [address] [place] [address]Urnoglkegi (Bld) [Volume fraction]39.5 %Hhzbsp79.0-55.0 [facility] HospitalComment on above:Performed By: #### [id number] #### [facility] ([facility]) [address] [place] [address]Eihgegbzhv (Bld) [Mass/Vol]13.4 g/lFPqeicp24.0-17.0UnOhioHealth Dublin Methodist HospitalComment on above:Performed By: #### [id number] #### [facility] ([facility]) [address] [place] [address]TGU (RBC) [Entitic mass]31.4 bvAjbrhg60.0-33.0UnOhioHealth Dublin Methodist HospitalComment on above:Performed By: #### [id number] #### [facility] ([facility]) [address] [facility] [place], [place] [address]KFG (RBC) [Entitic vol]92.5 wTVhwjeb41.0-98.0UnOhioHealth Dublin Methodist HospitalComment on above:Performed By: #### [id number] #### [facility] ([facility]) [address] [place], [place] [address]ADUNLYPDA (10*3/UL) IN BLOOD AUTOMATED [id number] 10*3/uLNormal 150-400UnOhioHealth Dublin Methodist HospitalComment on above:Performed By: #### [id number] #### [facility] ([facility]) [address] [place], [place] [address]UYS (Bld) [#/Vol]4.27 10*6/uLNormal4.20-5.70UnOhioHealth Dublin Methodist HospitalComment on above:Performed By: #### [id number] #### [facility] ([facility]) [address] [place], [place] [address]IGB (Bld) [#/Vol]8.39 10*3/uLNormal4.00-10.60UnOhioHealth Dublin Methodist HospitalComment on above:Performed By: #### [id number] #### [facility] ([facility]) [address] [place], [place] [address]Kkzmkc (Out)on 28-67-2650Ugaatn (Out)[id number] Huang Robles 1955 M Date Provider Department Center 01/15/2024 [id number], GENERIC PRO*INIT None Family History Problem Relation Age of Onset Prostate cancer Father Family Status - Relation Status Age at FatherNormalUniversAdams County HospitalPOCT GLUCOSE METER UNSOLICITED RESULTSon 16-06-5397Xandmuw [Mass/Vol]184 mg/tLRbge13-723ThyqerqmxvOhioHealth Dublin Methodist HospitalComment on above:Order Comment: Waived Testing in the ED is performed under the ED CLIA certificate #[id number].Result Comment: [email or web address] Performed By: #### [id number] ####[facility] (BEMICKY)[address] [place] [address]Fulgojq [Mass/Vol]120 mg/mJLzqd18-557HmzpkgtcnhOhioHealth Berger HospitalComment on above:Order Comment: Waived Testing in the ED is performed under the ED CLIA certificate #[id number].Result Comment: [email or web address] Performed By: #### [id number] ####[facility] (BEAKER)[address] [place] [address]su [id number] patient is Moderately Stable - Low risk of patient condition [...] hemodynamic stability: Monitor blood pressure and heart rateNormalUniversAdams County Hospital30The patient is Moderately Stable - Low risk of patient condition [...] of urinary retention Outcome: Progressing Flowsheets (Taken 01/14/2024 08) Absence of urinary retention: Assess patient???s ability to void and empty bladder Problem: Infection - Adult Goal: Absence of infection at discharge Outcome: Progressing Flowsheets (Taken 01/14/2024 08) Absence of infection at discharge: Assess and monitor for signs and symptoms of infection Goal: Absence of infection during hospitalization Outcome: Progressing Problem: Metabolic/Fluid and Electrolytes - Adult Goal: Electrolytes maintained within normal limits Outcome: Progressing Flowsheets (Taken 01/14/2024799) Electrolytes maintained within normal limits: Monitor labs and assess patient for signs and symptoms of electrolyte imbalances Goal: Hemodynamic stability and optimal renal function maintained Outcome: Progressing Flowsheets (Taken 01/14/2024799) Hemodynamic stability and optimal renal function maintained: Monitor labs and assess for signs and symptoms of volume excess or deficit Goal: Glucose maintained within prescribed range Outcome: Progressing Flowsheets (Taken 01/14/2024799) Glucose maintained within prescrib (more content not included)...Normal [facility]30Daily Case Management Update Multidisciplinary rounds have been completed. Barriers [...] assigned) Question: Reason for Consult? Answer: CHF 01/14/248NormalUniTrinity Health System30The patient is Moderately Stable - Low risk of patient condition declining or worsening The patient's goals for the shift include comfort The clinical goals for the shift include safetyNormalUniversAdams County HospitalBASIC METABOLIC PANELon 44-70-6433Snprv gap [Moles/Vol]14 mmol/L Normal7-20UnOhioHealth Dublin Methodist HospitalComment on above:Performed By: #### [id number] #### [facility] ([facility]) [address] [place] [address]Gagcbcy [Mass/Vol]8.6 mg/dLNormal8.6-10.3UnOhioHealth Dublin Methodist HospitalComment on above:Performed By: #### [id number] #### [facility] ([facility]) [address] [place] [address]Tnvygser [Moles/Vol]100 mmol/YMqronb79-605AabkqvlwbpOhioHealth Dublin Methodist HospitalComment on above:Performed By: #### [id number] #### [facility] ([facility]) [address] [place] [address]JS4 [Moles/Vol]26 mmol/OEtycfg11-53LvkfonjvgnOhioHealth Dublin Methodist HospitalComment on above:Performed By: #### [id number] #### [facility] ([facility]) [address] [place] [address]Andfeggtpq [Mass/Vol]0.81 mg/dLNormal0.70-1.30UnOhioHealth Dublin Methodist HospitalComment on above:Performed By: #### [id number] #### [facility] ([facility]) [address] [place] [address]NUQOHOEBUD FILTRATION RATE ML/MIN/1.73 SQ M.VSFKPJHBR62.0 mL/min/1.73m*2Normal>60.0UnOhioHealth Dublin Methodist HospitalComment on above: Result Comment: [facility]???s estimated glomerular filtration rate (eGFR) will [...] potential consequences that do not disproportionately affect anyone group of individuals.Performed By: #### [id number] #### [facility] ([facility]) [address] [place] [place], [place] [address]Cnktccj [Mass/Vol]151 mg/mWCqup03-850UxdyibicsgOhioHealth Dublin Methodist HospitalComment on above:Performed By: #### [id number] #### [facility] ([facility]) [address] [place] [place], [place] [address]Zivrwdjbx [Moles/Vol]3.5 mmol/LNormal3.5-5.1UnOhioHealth Dublin Methodist HospitalComment on above:Performed By: #### [id number] #### [facility] ([facility]) [address] [place], [place] [address]Csbozf [Moles/Vol]136 mmol/CKxeavi441-566DgnmwhtrmrOhioHealth Dublin Methodist HospitalComment on above:Performed By: #### [id number] #### [facility] ([facility]) [address] [place], [place] [address]Muby nitrogen [Mass/Vol]8 mg/dLNormal7-25UnOhioHealth Dublin Methodist HospitalComment on above:Performed By: #### [id number] #### [facility] ([facility]) [address] [place], [place] [address]DNLP NITROGEN/CREATININE (MASS RATIO) IN SER/PLAS9.9Normal [facility] HospitalComment on above:Performed By: #### [id number] #### [facility] ([facility]) [address] [place], [place] [address]NWLrn 00-51-1816Idpvkgbuzxf distribution width (RBC) [Ratio]13.3 %Xxnnwu30.5-15.0UnOhioHealth Dublin Methodist HospitalComment on above:Performed By: #### [id number] ####[facility] ([facility])[address] [place] [address] ERYTHROCYTE MEAN CORPUSCULAR HEMOGLOBIN CONCENTRATION (G/DL) BY DSOGCTTWU96.6 g/cOOsowly38.0-35.0UnOhioHealth Dublin Methodist HospitalComment on above:Performed By: #### [id number] ####[facility] ([facility])[address] [place] [address]Croojpeivu (Bld) [Volume fraction]40.2 %Bymowl11.0-55.0UnOhioHealth Dublin Methodist HospitalComment on above:Performed By: #### [id number] ####[facility] ([facility])[address] [place] [address]Ftewyuhivr (Bld) [Mass/Vol]13.5 g/dL Dynhai85.0-17.0UnOhioHealth Dublin Methodist HospitalComment on above:Performed By: #### [id number] ####[facility] ([facility])[address] [place] [address]PAM (RBC) [Entitic mass]31.3 mwDpluaf26.0-33.0UnOhioHealth [facility] Methodist Hospital Comment on above:Performed By: #### [id number] ####[facility] ([facility])[address] [place] [address]XLY (RBC) [Entitic vol]93.3 wMCgeeqj25.0-98.0 [facility] HospitalComment on above:Performed By: #### [id number] ####[facility] ([facility])[address] [place] [address]SMTFOIVUR (10*3/UL) IN BLOOD AUTOMATED [id number] 10*3/vYExrlnv763-302XsgezxnsllOhioHealth Dublin Methodist HospitalComment on above:Performed By: #### [id number] ####[facility] ([facility])[address] [place] [address]XEZ (Bld) [#/Vol]4.31 10*6/uLNormal 4.20-5.70UnOhioHealth Dublin Methodist HospitalComment on above:Performed By: #### [id number] ####[facility] ([facility])[address] [place] [address]KUN (Bld) [#/Vol]9.62 10*3/uLNormal4.00-10.60[facility] HospitalComment on above:Performed By: #### [id number] ####[facility] ([facility]ARTH)[address] [place], [place] [address]UNZEKSTgu 17-36-2605QCLNZEMTnyiiqbr Nutrition Assessment: Name: Huang Robles Room: [address] [place] [address] Date: 1955 Date of Visit: 01/14/24 Admission Dx: NSTEMI (non-ST elevated myocardial infarction) ([facility]) [I21.4] Reason for assessment: consult for HF [...] (BMI) of 45.0 to 49.9 in adult ([facility]) 10/03/2023 Constipation 01/12/2024 Depression 01/12/2024 Developmental disability 10/15/2023 Fibromyalgia 05/15/2015 Macular degeneration 10/03/2023 Onychomycosis 10/03/2023 MIKAYLA (obstructive sleep apnea) 10/03/2023 Osteoarthritis 01/12/2024 rght knee Paroxysmal atrial fibrillation ([facility]) 06/10/2015 Primary hypertension 02/25/2015 Last Assessment & Plan: Optimal in office Type 2 diabetes mellitus without complications ([facility]) 02/25/2015 Venous insufficiency of both lower extremities [...] CHF diet ed. 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 [...] due to family not willing to transport ([phone]) PC to [facility] [facility] [employer] [facility], to enquire if Patient has transportation benefit available to them; Lizzie answered, transferred racebook writer to transportation dept; line disconnected ([phone]) PC to [facility] [facility] [employer] [facility], to enquire if Patient has transportation benefit available to them; after navigating through automated system for 5 minutes, unable to speak with a person ([phone]) PC to [facility] [employer] [facility], to enquire if Patient has transportation benefit available to them; after navigating through automated system for 12 minutes, unable to speak with a person unable to arrange transportation through insurance at this time 1226 prbx-yz-atas with Patient, to discuss discharge transportation planning Patient stating he is planning to be discharged tomorrow; stating he does not have anyone that can pick him up since they all work racebook writer provided update that racebook writer has been trying to contact his insurance about transportation but has not been able to get through to insurance, so Patient may need to consider having to pay eex-es-dxhjed for transportation home (as Patient does not meet criteria for stretcher transport)NormalUnOhioHealth Dublin Methodist HospitalPOCT GLUCOSE METER UNSOLICITED RESULTSon 14-69-3809Wcysxrc [Mass/Vol]214 mg/rQOxor85-261RdnqfagddmOhioHealth Dublin Methodist HospitalComment on above:Order Comment: Waived Testing in the ED is performed under the ED CLIA certificate #[id number].Result Comment: [id number] By: #### [id number] #### [facility] ([facility]ER) [address] [place], [place] [address]Cxwdhlt [Mass/Vol]194 mg/jCKbuz53-620QagkoyvclkOhioHealth Dublin Methodist HospitalComment on above:Order Comment: Waived Testing in the ED is performed under the ED CLIA certificate #[id number].Result Comment: [email or web address] Performed By: #### [id number] #### [facility] ([facility]AKER) [address] [place], [place] [address]Obszmwm [Mass/Vol]178 mg/fXGxhz02-167FrifbfczfyOhioHealth Dublin Methodist HospitalComment on above:Order Comment: Waived Testing in the ED is performed under the ED CLIA certificate #[id number].Result Comment: [email or web address] Performed By: #### [id number] ####[facility] (BEAKER)[address] [place], [place] [address]Rwaygny [Mass/Vol]155 mg/qMBwvn76-036KhelgnniztOhioHealth Dublin Methodist HospitalComment on above:Order Comment: Waived Testing in the ED is performed under the ED CLIA certificate #[id number].Result Comment: [email or web address] Performed By: #### [id number] #### [facility] (BEAKER) [address] [place], [place] [address]to [phone] Case Management Update Multidisciplinary rounds have been completed. Barriers to Discharge et per Progress Note/s: Transfer from [facility] for c/o Chest Pain = NSTEMI. Hep [...] Wound Reason for Consult? new admission 01/12/24 1900NormalUniversAdams County Hospital30The patient is Moderately Stable - Low risk of patient condition [...] antiarrhythmia medication and electrolyte replacement as ordered NormalUnOhioHealth Dublin Methodist HospitalAPTTon 35-48-6802OMIUEKITC PARTIAL THROMBOPLASTIN TIME IN PPP BY COAGULATION ASSAY28.0 ZqyosjeRpbbsy07.0-35.0 [facility] HospitalComment on above:Order Comment: Check aPTT every 6 hours while on heparin infusion, or per protocol.Result Comment: Clinical significance of the APTT is questionable in the presence of heparin. Performed By: #### [id number] ####[facility] ([email or web address])[address] [place], [place] [address]PDLBGHYZC PARTIAL THROMBOPLASTIN TIME IN PPP BY COAGULATION ASSAY68.0 GbdtksyVele09.0-35.0UnOhioHealth Dublin Methodist HospitalComment on above:Order Comment: Waived Testing in the ED is performed under the ED CLIA certificate #[id number].Result Comment: Clinical significance of the APTT is questionable in the presence of heparin.Performed By: #### [id number] #### [facility] ([email or web address]) [address] [place], [place] [address]DLKUDZZZE PARTIAL THROMBOPLASTIN TIME IN PPP BY COAGULATION ASSAY55.3 FsnkiszXflu15.0-35.0UnOhioHealth Dublin Methodist HospitalComment on above:Order Comment: Check aPTT every 6 hours while on heparin infusion, or per protocol.Result Comment: Clinical significance of the APTT is questionable in the presence of heparin.Performed By: #### [id number] #### [facility] ([employer]) [address] [place], [place] [address]BNF WITH AUTO DIFFERENTIALon 93-49-3556Dffvrxfki (Bld) [#/Vol] 0.04 10*3/uLNormal0.00-0.20UnOhioHealth Dublin Methodist HospitalComment on above: Performed By: #### [id number] #### [facility] ([facility]) [address] [place], [place] [address]Pxlkhrhqb/100 WBC (Bld)0.4 %Normal0.0-1.0UnOhioHealth Dublin Methodist HospitalComment on above:Performed By: #### [id number] #### [facility] ([facility]) [address] [place], [place] [address]Cymnrtxlfyj (Bld) [#/Vol]0.08 10*3/uLNormal0.00-0.50UnOhioHealth Dublin Methodist HospitalComment on above:Performed By: #### [id number] #### [facility] ([facility]) [address] [place], [place] [address]Bkorevvmggg/100 WBC (Bld)0.8 %Normal0.0-6.0UnOhioHealth Dublin Methodist HospitalComment on above:Performed By: #### [id number] #### [facility] ([facility]) [address] [place], [place] [address]Tuwttvgjslc distribution width (RBC) [Ratio]13.1 %Normal 11.5-15.0UnOhioHealth Dublin Methodist HospitalComment on above:Performed By: #### [id number] #### [facility] ([facility]) [address] [place], [place] [address]FVIAYTDAWZN MEAN CORPUSCULAR HEMOGLOBIN CONCENTRATION (G/DL) BY QZACRJVXX92.4 g/yRMchhda87.0-35.0UnOhioHealth Dublin Methodist HospitalComment on above:Performed By: #### [id number] #### [facility] ([facility]) [address] [place] [place], [place] [address]Xdqlfyvtvm (Bld) [Volume fraction]38.9 %Low39.0-55.0UnOhioHealth Dublin Methodist HospitalComment on above:Performed By: #### [id number] #### [facility] ([facility]) [address] [place], [place] [address]Tnjwikziof (Bld) [Mass/Vol]13.0 g/oZOvrodd58.0-17.0UnOhioHealth Dublin Methodist HospitalComment on above:Performed By: #### [id number] #### [facility] ([facility]) [address] [place], [place] [address]Oixqnxai granulocytes (Bld) [#/Vol]0.04 10*3/uLNormal0.00-0.20 [facility] HospitalComment on above:Performed By: #### [id number] #### [facility] ([facility]) [address] [place], [place] [address]Zqwqhsoy granulocytes/100 WBC (Bld)0.4 %Normal0.0-1.0UnOhioHealth Dublin Methodist HospitalComment on above:Performed By: #### [id number] #### [facility] ([facility]) [address] [place], [place] [address]Kwwsopfcgee (Bld) [#/Vol]1.85 10*3/uLNormal1.20-4.00UnOhioHealth Dublin Methodist HospitalComment on above:Performed By: #### [id number] #### [facility] ([facility]) [address] [place] [address]Fppflutseij/100 WBC (Bld)18.4 %Low20.0-45.0UnOhioHealth Dublin Methodist HospitalComment on above:Performed By: #### [id number] #### [facility] ([facility]) [address] [place] [place], [place] [address]UVP (RBC) [Entitic mass]31.3 lyIlvazn41.0-33.0UnOhioHealth Dublin Methodist HospitalComment on above:Performed By: #### [id number] #### [facility] ([facility]) [address] [place], [place] [address]AEC (RBC) [Entitic vol]93.7 xJEqzdsn75.0-98.0UnOhioHealth Dublin Methodist HospitalComment on above:Performed By: #### [id number] #### [facility] ([facility]) [address] [place] [address]Uquyixeyr (Bld) [#/Vol]0.83 10*3/uLNormal0.10-1.00UnOhioHealth Dublin Methodist HospitalComment on above:Performed By: #### [id number] #### [facility] ([facility]) [address] [place] [address]Xspzmjssv/100 WBC (Bld)8.3 %Normal5.0-12.0UnOhioHealth Dublin Methodist HospitalComment on above:Performed By: #### [id number] #### [facility] ([facility]) [address] [place] [address]Bclmgdnvsov (Bld) [#/Vol]7.19 10*3/uLNormal1.60-7.60UnOhioHealth Dublin Methodist HospitalComment on above:Performed By: #### [id number] #### [facility] ([facility]) [address] [place] [address]Anocloofoel/100 WBC (Bld)71.7 %Xzigug07.0-72.0UnOhioHealth Dublin Methodist HospitalComment on above:Performed By: #### [id number] #### [facility] ([facility]) [address] [place] [address]EJZR (PER 100 WBCS) BY AUTOMATED COUNT0.0 %Gmmdee1RvycjgorbfOhioHealth Dublin Methodist HospitalComment on above:Performed By: #### [id number] #### [facility] ([facility]) [address] [place] [address]WWNJCPXMM (10*3/UL) IN BLOOD AUTOMATED DUIQG778 10*3/uLNormal 150-400UnOhioHealth Dublin Methodist HospitalComment on above:Performed By: #### [id number] #### [facility] ([facility]) [address] [place] [address]DRQ (Bld) [#/Vol]4.15 10*6/uLLow4.20-5.70UnOhioHealth Dublin Methodist HospitalComment on above:Performed By: #### [id number] #### [facility] ([facility]) [address] [place] [address]LSG (Bld) [#/Vol]10.03 10*3/uLNormal4.00-10.60UnOhioHealth Dublin Methodist HospitalComment on above:Performed By: #### [id number] #### [facility] ([facility]) [address] [place] [address]OVWSQFKUIPJPG METABOLIC PANELon 51-52-0152Rjauoxd [Mass/Vol]3.8 g/dLNormal3.5-5.7UnOhioHealth Dublin Methodist HospitalComment on above:Performed By: #### [id number] #### [facility] ([facility]) [address] [place] [address]QIM [Catalytic activity/Vol]59 U/KLrwkmd71-680ZsmkwxdjsrOhioHealth Dublin Methodist HospitalComment on above:Performed By: #### [id number] #### [facility] ([facility]) [address] [place] [address]JJZ [Catalytic activity/Vol]30 U/LNormal7-52UnOhioHealth Dublin Methodist HospitalComment on above:Performed By: #### [id number] #### [facility] ([facility]) [address] [place] [address]Bdrhc gap [Moles/Vol]12 mmol/LNormal7-20UnOhioHealth Dublin Methodist HospitalComment on above:Performed By: #### [id number] #### [facility] ([facility]) [address] [place] [address]MGS [Catalytic activity/Vol]143 U/UJceb02-20KgkwnrxedxOhioHealth Dublin Methodist HospitalComment on above:Performed By: #### [id number] #### [facility] ([facility]) [address] [place], [place] [address]Imifuuwmj [Mass/Vol]1.0 mg/dLNormal0.3-1.0UnOhioHealth Dublin Methodist HospitalComment on above:Performed By: #### [id number] #### [facility] ([facility]) [address] [place], [place] [address]Pjywqmc [Mass/Vol]8.7 mg/dLNormal8.6-10.3UnOhioHealth Dublin Methodist HospitalComment on above:Performed By: #### [id number] #### [facility] ([facility]) [address] [place], [place] [address]Amrwmozk [Moles/Vol]103 mmol/HEecoix66-643GmrvdsscajOhioHealth Dublin Methodist HospitalComment on above:Performed By: #### [id number] #### [facility] ([facility]) [address] [place], [place] [address]ZS9 [Moles/Vol]23 mmol/NLpqzgc66-38IumqzeebsbOhioHealth Dublin Methodist HospitalComment on above:Performed By: #### [id number] #### [facility] ([facility]) [address] [place], [place] [address]Oikwzyppqa [Mass/Vol]0.71 mg/dLNormal0.70-1.30UnOhioHealth Dublin Methodist HospitalComment on above:Performed By: #### [id number] #### [facility] ([facility]) [address] [place], [place] [address]JTVTRQNVHG FILTRATION RATE ML/MIN/1.73 SQ M.LKZZTROHT46.9 mL/min/1.73m*2Normal>60.0UnOhioHealth Dublin Methodist HospitalComment on above: Result Comment: [facility]???s estimated glomerular filtration rate (eGFR) will [...] potential consequences that do not disproportionately affect anyone group of individuals.Performed By: #### [id number] #### [facility] ([facility]) [address] [place], [place] [address]Vlqdeoj [Mass/Vol]200 mg/nZMrtx52-951UgnbffqkmdOhioHealth Dublin Methodist HospitalComment on above:Performed By: #### [id number] #### [facility] ([facility]) [address] [address]Qysikauhh [Moles/Vol]3.7 mmol/LNormal3.5-5.1UnOhioHealth Dublin Methodist HospitalComment on above:Performed By: #### [id number] #### [facility] ([facility]) [address] [place] [address]Owijgao [Mass/Vol]6.3 g/dLNormal6.0-8.3UnOhioHealth Dublin Methodist HospitalComment on above:Performed By: #### [id number] #### [facility] ([facility]) [address] [place] [address]Orvqmd [Moles/Vol]134 mmol/APdm423-585LndgcqxnvwOhioHealth Dublin Methodist HospitalComment on above:Performed By: #### [id number] #### [facility] ([facility]) [address] [place] [address]Wyys nitrogen [Mass/Vol]12 mg/dLNormal7-25UnOhioHealth Dublin Methodist HospitalComment on above:Performed By: #### [id number] #### [facility] ([facility]) [address] [place] [address]WUYW NITROGEN/CREATININE (MASS RATIO) IN SER/PLAS16.9Normal [facility] HospitalComment on above:Performed By: #### [id number] #### [facility] ([facility]) [address] [place] [address]VVTSEAExi 59-54-9327EFIEPRY Attestation signed by Marly Garcia MD at [...] we will add ARB. Marly Garcia MD, [facility] Cardiology Consult Note Reason for Consult: chest [...] (BMI) of 45.0 to 49.9 in adult ([facility]) (10/03/2023), Constipation (01/12/2024), Depression (01/12/2024), Developmental disability (10/15/2023), Fibromyalgia (05/15/2015), Macular degeneration (10/03/2023), Onychomycosis (10/03/2023), MIKAYLA (obstructive sleep apnea) (10/03/2023), Osteoarthritis (01/12/2024), Paroxysmal atrial fibrillation ([facility]) (06/10/2015), Primary hypertension (02/25/2015), Type 2 diabetes mellitus without complications ([facility]) (02/25/2015), and Venous insufficiency of both lower [...] 2300 123/76 -- -- (more content not included)...[facility] CenterCONSULTWnem[facility] [place] [facility] RN Consult Note Visit Date: 01/13/2024 Patient Name: Huang [...] an 68 y.o. male who came from [facility] on 01/12/2024 as a transfer with chest [...] Wound Image 01/13/24 1418 Site Assessment Blanchable erythema;Clean;Fragile;Intact;Red 01/13/24 1440 Mary Lou-Wound Assessment Blanchable erythema [...] 143 Wound Bed Epithelium (%) 100 % 01/13/24 143 Wound Bed Non-Granulation (%) 0 % 01/13/24 143 Wound Bed Slough (%) 0 % 01/13/241438 Wound Bed Eschar (%) 0 % 01/13/24 143 Margins Attached edges;Undefined edges 01/13/24 1439 Non-staged Wound Description Not applicable 01/13/24 1439 Wound 01/12/24 Venous Ulcer Pretibial Distal;Bilateral (Active) Site Assessment Brown 01/13/24 0745 Dressing Open to air 01/13/24 0745 Wound 01/12/24 Venous Ulcer Pretibial Left;Lower (Active) Wound Image 01/13/24 1417 Site Assessment Clean;Dry;Yellow-brown (Hemosiderin staining) 01/13/24 1438 Mary Lou-Wound Assessment Blanchable erythema 01/13/241437 Closure None 01/13/241437 Drainage Amount None 01/13/241437 Treatments Cleansed 01/13/241437 Dressing Open to air 01/13/241437 Dressing Changed New 01/13/241437 State of Healing Closed wound edges 01/13/241437 Wound Bed Granulation (%) 0 % 01/13/241437 Wound Bed Epithelium (%) 100 % 01/13/241437 Wound Bed Non-Granulation (%) 0 % 01/13/241437 Wound Bed Slough (%) 0 % 01/13/241437 Wound Bed Eschar (%) 0 % 01/13/241437 Margins Attached edges;Undefined edges 01/13/241437 Non-staged Wound Description Not applicable 01/13/241437 Barbra Angelo RN, CWON 01/13/2024 2:41 [facility] HospitalHPon 54-17-5172LK Attestation signed by Avi Maurice MD at 01/13/2024 8:25 AM Agree with H&P and Dr. Kong's note. Musa's test normal bilaterally. I discussed with Mr. Robles the expected benefits and risks of cardiac catheterization, including potential subsequent treatments such as PCI. He understands and consents to proceed. H&P reviewed. The patient was examined and there are no changes to the H&P. Discussed risks vs. Benefits of the coronary angiogram and possible PCI, patient understands and willing to proceed. Gloria Kong MD PGY-7 Interventional Cardiology FellowNormalUniversAdams County Hospital LIPID PANELon 17-96-8520OJVD/HDL3.9 mg/dLNormalUniTrinity Health SystemComment on above:Performed By: #### [id number] #### [facility] ([facility]) [address] [place], [place] [address]Vfhvhocvsql [Mass/Vol]108 mg/nEDwf685-386AiezfublecOhioHealth Dublin Methodist HospitalComment on above:Performed By: #### [id number] #### [facility] ([facility]) [address] [place], [place] [address]Lhtqquike [Mass/Vol]93 mg/oYZarugi90-961BhpyhakixiOhioHealth Dublin Methodist HospitalComment on above:Result Comment: TRIGLYCERIDE REFERENCE RANGE: 20 YEARS AND OLDER CARDIOVASCULAR RISK LESS THAN 150 mg/dL LOW RISK 150 TO 199 mg/dL BORDERLINE RISK 200 mg/dL AND GREATER HIGH RISKPerformed By: #### [id number] #### [facility] ([facility]) [address] [place], [place] [address]Qakrezwee [Mass/Vol]61 mg/dLNormal0-160UnOhioHealth Dublin Methodist HospitalComment on above:Performed By: #### [id number] #### [facility] ([facility]) [address] [place], [place] [address]Oswavvksz [Mass/Vol]28 mg/iTQskrpd94-86SdyzjbjehwOhioHealth Dublin Methodist HospitalComment on above:Performed By: #### [id number] #### [facility] ([facility]) [address] [place], [place] [address]PMV HDL CHOL. (LDL+VLDL)80NormalUniTrinity Health SystemComment on above:Performed By: #### [id number] #### [facility] ([facility]) [address] [place], [place] [address]SXZYD VLDL-C19 mg/dLNormal0-40UnOhioHealth Dublin Methodist HospitalComment on above:Performed By: #### [id number] #### [facility] ([facility]) [address] [place] [address]ARXDDYLSUtp 88-20-1212Mijjtihwi [Mass/Vol]2.0 mg/dLNormal1.9-2.7 [facility] HospitalComment on above:Performed By: #### [id number] #### [facility] ([facility]) [address] [place] [address]GORQ GLUCOSE METER UNSOLICITED RESULTSon 37-54-6307Oidoeqb [Mass/Vol]203 mg/wGLrwk06-547JwxuxjrmcaOhioHealth Dublin Methodist HospitalComment on above:Order Comment: Waived Testing in the ED is performed under the ED CLIA certificate #[id number].Result Comment: [email or web address] By: #### [id number] #### [facility] ([facility]) [address] [place] [address]Dwmmsyf [Mass/Vol]193 mg/sYOnri33-843MwfstletkhOhioHealth Dublin Methodist HospitalComment on above:Order Comment: Waived Testing in the ED is performed under the ED CLIA certificate #[id number].Result Comment: [email or web address] Performed By: #### [id number] ####[facility] ([facility])[address] [place] [address]Onzkofd [Mass/Vol]257 mg/dJSsaz23-935IgtoemopbgOhioHealth Dublin Methodist HospitalComment on above:Order Comment: Waived Testing in the ED is performed under the ED CLIA certificate #[id number].Result Comment: [email or web address] Performed By: #### [id number] #### [facility] ([facility]) [address] [place] [address]YFIEMMD-TUKzm 57-74-4151OFT IN PPP BY COAGULATION ASSAY1.34High 0.90-1.10UnOhioHealth Dublin Methodist HospitalComment on above:Result Comment: ACC RECOMMENDED INR FOR WARFARIN THERAPY CONDITION INR PROPHYLAXIS OF VENOUS THROMBOSIS 2-3 (HIGH-RISK SURGERY) TREATMENT OF VENOUS THROMBOSIS 2-3 TREATMENT OF PULMONARY EMBOLISM 2-3 PREVENTION OF SYSTEMIC EMBOLISM: 2-3 ACUTE MYOCARDIAL INFARCTION TISSUE HEART VALVES VALVULAR HEART DISEASE ATRIAL FIBRILLATION RECURRENT SYSTEMIC EMBOLISM MECHANICAL HEART VALVE 2.5-3.5 FROM: ORAL ANTICOAGULANTS. MECHANISM OF ACTION, CLINICAL EFFECTIVENESS, AND OPTIMAL THERAPEUTIC RANGE. CHEST 1995;108:231S-246S.Performed By: #### [id number] ####[facility])[address] [place], [place] [address]BPTEZZWAXAZ TIME (PT) IN PPP BY COAGULATION ASSAY16.5 VwbncxcQjqg44.3-14.8UnOhioHealth Dublin Methodist HospitalComment on above:Performed By: #### [id number] ####[facility] [place], [place] [address]OYTHNJCM Ion 30-27-5341Feqpmlrg I.cardiac [Mass/Vol]22.53 ng/mLCritically high0.00-0.04UnOhioHealth Dublin Methodist HospitalComment on above:Result Comment: Previous result verified on 01/13/2024 0443 on specimen/case [id number] called with component Troponin I for procedure Troponin I with value 32.72 ng/mL.Performed By: #### [id number] ####[facility] [employer])[address] [place], [place] [address]Bkqwvcda I.cardiac [Mass/Vol]32.72 ng/mLCritically high0.00-0.04UnOhioHealth Dublin Methodist HospitalComment on above:Result Comment: M-PREVIOUS CRITICAL RESULT Previous result verified on 01/12/2024 2322 on specimen/case [id number] called with component Troponin I for procedure Troponin I with value 16.06 ng/mL. Performed By: #### [id number] #### [facility] ([facility]) [address] [place], [place] [address]HVRJpy 02-25-0429QKYNSFUWR PARTIAL THROMBOPLASTIN TIME IN PPP BY COAGULATION ASSAY28.2 QhvkncyOaxogg40.0-35.0UnOhioHealth Dublin Methodist Hospital Comment on above:Result Comment: Clinical significance of the APTT is questionable in the presence of heparin.Performed By: #### [id number] ####[facility] ([facility])[address] [place], [place] [address]SSXZUGNP COUNTon 62-92-3671WDMLQJDCX (10*3/UL) IN BLOOD AUTOMATED EVTJR727 10*3/kQVfiriv472-969 [facility] HospitalComment on above:Performed By: #### [id number] ####[facility] ([facility])[address] [place], [place] [address]OELTCAQV Ion 55-60-6240Fxtiudwv I.cardiac [Mass/Vol]16.06 ng/mLCritically high0.00-0.04 [facility] HospitalComment on above:Performed By: #### [id number] #### [facility] ([facility]) [address] [place], [place] [address]Dmksxh Visit (Cardiology)on 56-79-2195Jkkaql-up visit Diagnoses/Problems Assessed Benign essential HTN (401.1) (I10) Diabetes mellitus (250.00) (E11.9) Permanent atrial fibrillation (427.31) (I48.21) Morbid obesity with BMI of 45.0-49.9, adult (278.01,V85.42) (E66.01,Z68.42) Lower extremity edema (782.3) (R60.0) Never a smoker Orders Morbid obesity with BMI of 45.0-49.9, adult Healthy Weight Tips; Status:Complete - Retrospective Authorization; Done: 19Woy6863 Some eating tips that can help you lose weight.; Status:Complete - Retrospective Authorization; Done: 99Jvz4428 SocHx: Never a smoker Tobacco Use Screening; Status:Complete; Done: 52Wug8845 Patient Instructions Please bring all medicines, vitamins, [...] negative for complaint. Vitals Vital Signs Recorded: 27Dec2022 08:19AM Heart Rate66, R Radial Kfwvxvas806, LUE, Sitting Ecpbhvyjz28, LUE, Sitting Height5 ft 6 in Efkysk957 lb BMI Paiotmrpyl07.58 kg/m2 BSA Calculated2.38 Tobacco Useb) No PHQ-2 #1. Over the last 2 weeks have you felt down, depressed or hopeless? (If yes, answer PHQ-9 below)No PHQ-2 #2. Over the last 2 weeks have you felt little interest or pleasure in doing things? (If yes,answer PHQ-9 below)No Falls Screening (Age 18+)a) No [...] MD; Dec 27 2022 9:49AM EST (Author) NormalUH TouchworksTobacco Screening.on 42-92-8197Cnwfy depression screening assessmentNoProsser Memorial Hospital [employer] 250 DO Work Phone: Fall risk assessmenta) No falls within the last year [facility] [employer] 250 DO Work Phone: Tobacco use status CPHSb) NoMProsser Memorial Hospital [employer] 250 DO Work Phone: Office Visit (Cardiology)on 88-06-1916Uefhoa-up visit Diagnoses/Problems Assessed Permanent atrial fibrillation (427.31) (I48.21) Diabetes mellitus (250.00) (E11.9) Benign essential HTN (401.1) (I10) Morbid obesity with BMI of 45.0-49.9, adult (278.01,V85.42) (E66.01,Z68.42) Never a smoker Orders Morbid obesity with BMI of 45.0-49.9, adult Healthy Weight Tips; Status:Complete - Retrospective Authorization; Done: 87Kht7388 SocHx: Never a smoker Tobacco Use Screening; Status:Complete; Done: 19Ryw3078 Tobacco Use Screening; Status:Complete; Done: 39Ool4633 Patient Instructions By signing my name below, I, Haily Darling LPN ,Binta, attest that this documentation has been prepared under the direction and in the presence of Dr. Vel Muñoz MD. All medical record entries made by the Scribe were at my direction and personally dictated by me. Ihave reviewed the chart and agree that the [...] negative for complaint. Vitals Vital Signs Recorded: 62Cos7836 01:46PM Heart Rate64, R Radial Dmndgumx146, RUE, Sitting Jmwrzosun56, RUE, Sitting Height5 ft 6 in Ovtcey895 lb BMI Aegkaonvcm82.61 kg/m2 BSA Calculated2.36 Tobacco Useb) No PHQ-2 #1. Over the last 2 weeks have you felt down, depressed or hopeless? (If yes, answer PHQ-9 below)No PHQ-2 #2. Over the last 2 weeks have you felt little interest or pleasure in doing things? (If yes,answer PHQ-9 below)No Falls Screening (Age 18+)a) No [...] Vel Muñoz MD; Priscila (more content not included)...NormalUH TouchworksTobacco Screening.on 71-94-5426Bhicb depression screening assessmentNo-[facility] [employer] 250 DO Work Phone: Fall risk assessmenta) No falls within the last year [facility] [employer] 250 DO Work Phone: Tobacco use status CPHSb) NoMProsser Memorial Hospital [employer]- [employer] 250 DO Work Phone: OBSOLETEon 37-45-9561OGOGVNTIDxiula (INTMIN) HUANG ROBLES ([id number]) 1955 M Date Time Provider Department 11/26/18 [facility] INTMIN During your visit today, we recorded the following information about you: Chanelle Lawrence [facility] 11/26/2018 3:22 PM Signed Pharmacy electronically requesting refills as follows: Pending Prescriptions Disp Refills METOPROLOL TARTRATE 50 MG TABLET 180 tablet 3 Sig: Take 1 tablet by mouth twice daily. SHAUNA: No Please review and advise. Chanelle Lawrence [facility] Amy Rangel [facility] 11/26/2018 4:47 PM Signed Patient phones requesting refills as follows: Pending Prescriptions Disp Refills METOPROLOL TARTRATE 50 MG TABLET 180 tablet 3 Sig: Take 1 tablet by mouth twice daily. SHAUNA: No Please review and advise. Amy Rangel Human Resources Trainee Currently no apptm scheduled 10/02/2017 last apptm [...] tablet by mouth twice * RYANNE CARRANZA [facility] as directed. TOLTERODINE ER 4 [...] Encounter Status:Closed by [facility]RBAN [id number] Visit (CARDFT) HUANG ROBLES ([id number]) 1955 M Date Time Provider Department 04/03/18 10:30 AM FRANKLIN URBAN During your visit today, we recorded the following information about you: Pulse Respiration Blood pressure Weight 60/minute 18/minute 123/73 131.5 kg Height 1.702 m Franklin Urban MD 04/03/2018 11:01 AM Signed [facility] Department of Cardiovascular Medicine OUTPATIENT VISIT DATE 04/03/18 OUTPATIENT VISIT TYPE ESTABLISHED PRIMARY CARE PHYSICIAN: Leona Gordon DO [address] [id number] CHIEF COMPLAINT: Atrial fibrillation HISTORY OF PRESENT [...] tablet by mouth twice daily. R[facility]ANNE CARRANZA [facility] spcr as directed. tolterodine ER (DETROL LA) [...] Department of Cardiovascular Medicine Heart [facility] V[facility] [place] [address] Office: [phone] Referring Provider: LEONA GORDON [[id number]] Allergies As of Date: 04/03/2018 (No Known [...] tablet by mouth twice * [facility]YANNE [facility] as directed. TOLTERODINE ER 4 [...] Encounter Status:Closed by FRANKLIN URBAN MD on 04/03/18[facility] [id number] mass concHNO ID: [id number] Author: Franklin Urban Service: (none) Author Type: Physician Type: Progress Notes Filed: 04/03/2018 11:01 AM Note Text: [facility] Department of Cardiovascular Medicine OUTPATIENT VISIT DATE 04/03/18 OUTPATIENT VISIT TYPE ESTABLISHED PRIMARY CARE PHYSICIAN: Leona Gordon DO [address] [facility] [place] [address] CHIEF COMPLAINT: Atrial fibrillation HISTORY OF PRESENT [...] tablet by mouth twice daily. [facility] sp[facility] as directed. tolterodine ER (DETROL [...] Department of Cardiovascular Medicine Heart and Vascular [facility] At [address] [place] [id number] Office: [phone] NormalCMercy [facility] MAGNESIUMon 70-42-8410Neglnkaaa3.2 mg/dLNormal1.6-2.3TGrant [facility] Comment on above:Performed By: #### MG, BMP ####[facility] Hyqmrczyrv3011 [address] KarenPROF CHEM 8 (BAS METB)on 13-83-5252Udtpg gap15.4 mmol/LNormalCleveland Clinic Medina HospitalComment on above: Performed By: #### MG, BMP ####[facility] Jbnvhkzvja3148 [address] KarenBUN/Creatinine Ratio18.6 mg/mgNormalThe [facility] HealthComment on above:Performed By: #### MG, BMP ####[facility] Hozzwxtbcf1326 [address] KarenCalcium 9.3 mg/dLNormal8.4-10.2[facility] Med[facility] HospitalComment on above:Performed By: #### MG, BMP ####[facility] Eqstyfhafl3359 [address] VagsdYmcyukyl64 mmol/LCritically iaj39-981UliCleveland Clinic Medina Hospital Comment on above:Performed By: #### MG, BMP ####[facility] Ajgxfflwxk8399 [address] BxvreKJ939.0 mmol/RPiffag01.0-30.0 The [facility] HealthComment on above:Performed By: #### MG, BMP ####[facility] Dgplytgnxf9312 [address] [place] Creatinine0.78 mg/dLNormal0.66-1.25The [facility] on above: Performed By: #### MG, BMP ####[facility] Iqoaptgicf4652 [address] KareneGFR (non-black)mL/min/{1.73_m2}Normal>=60 The [facility] on above:Performed By: #### MG, BMP ####[facility] Glzoiclddl6791 [address] KarenGlucose mass vljx737 mg/dLCritically naft89-873Bgv [facility] on above: Performed By: #### MG, BMP ####[facility] D[address]wyueesh[address] [place] [address] KarenPotassium molar conc3.9 mmol/LNormal 3.4-5.0The [facility] on above:Performed By: #### MG, BMP ####[facility] [address] [place] [address] RvazhAshsxj273 mmol/LCritically dsw125-483Aqa [facility] on above: Performed By: #### MG, BMP ####[facility] Zprwmuhsqc[address] [place] [address] KarenUrea rdhogwhr29.0 mg/dLNormal9.0-20.0The [facility] on above:Performed By: #### MG, BMP ####[facility] Ibefijkvje[address] [place] [address] [place] GLYCOHEMOGLOBIN A1Con 37-40-0747Kgumhxj mass dcgb189 mg/dLNormalThe [facility]Com[facility] on above:Performed By: #### A1C ####[facility] [address]ivywdjznu[address] [place] [address] KarenHemoglobin A1c/Hemoglobin.total mass fraction (Bld)6.8 %Critically high<=6.0The [facility] on above:Performed By: #### A1C ####[facility] Kibimqszlf[address] [place] [address] KarenCBC AUTO DIFFon 64-36-5956Hmwkmwfhu Auto #/vol (Bld)0.0 103/ulNormal0.0-0.1The [facility] Comment on above:Performed By: #### CBC ####[facility] Tghkcnqtix[address] [place] [address] KarenBasophils/100 WBC Auto (Bld)0.4 %Normal0.2-2.0The [facility] HealthComment on above:Performed By: #### CBC ####[facility] Pacfrdxibh[address] [place] [address] KarenEosinophils0.1 103/ulNormal0.0-0.7The [facility] HealthComment on above: Performed By: #### CBC ####[facility] Saoawtiqyf[address] [place] [address] KarenEosinophils/100 leukocytes1.3 %Normal 0.9-7.0The [facility] HealthComment on above:Performed By: #### CBC ####[facility] Qsemqsivnx[address] [place] [address] [place] Erythrocyte distribution width Auto Ratio (RBC)13.1 %Zkaldl34.0-15.0The [facility] HealthComment on above:Performed By: #### CBC ####[facility] Agqkmzkxrf9[address] [place] [address] KarenErythrocytes (RBC)4.32 106/ulCritically low4.70-6.10The [facility] HealthComment on above: Performed By: #### CBC ####[facility] Bckmorclan59[address] [place] [address] KarenHematocrit (HCT)38.8 %Critically low 42.0-54.0The [facility] HealthComment on above:Performed By: #### CBC ####[facility] Oftfsaqdgv[address] [place] [address] KarenHemoglobin mass conc (Bld)13.3 g/dLCritically low14.0-18.0The [facility] HealthComment on above:Performed By: #### CBC ####[facility] Cwutiaqivr[address] [place] [address] #0.05 10e3/ul Critically high0.00-0.03The [facility] HealthComment on above:Performed By: #### CBC ####[facility] Jfgihvvxax2099 [address]enI %0.5 %Normal0.0-0.5The [facility] HospitalComment on above: Performed By: #### CBC ####[facility] Okajdthlks[address] [place] [address] KarenLymphocytes2.0 103/ulNormal1.2-3.8The [facility] HealthComment on above:Performed By: #### CBC ####[facility] Pocqhdtbem[address] [place] [address] KarenLymphocytes/100 hbpvylypyu62.1 %Eyctxj88.5-60.0The [facility] HealthComment on above:Performed By: #### CBC ####[facility] Ioftikrqkf[address]13[address] [place] [address] KarMANUAL DIFF REQNONormalThe [facility] HealthComment on above: Performed By: #### CBC ####[facility] Zldntxbfgw[address] [place], [place] [address]H30.8 ylRpygnw95.9-34.0The [facility] HospitalComment on above:Performed By: #### CBC ####[facility] Tamlryljmk[address] [place], [place] [address]HC mass conc (RBC)34.3 g/bBIdwqia22.9-35.2The [facility] HealthComment on above:Performed By: #### CBC ####[facility] Brifrglqzg[address] [place], [place] [address]V89.8 lCYvpkjr33.0-94.0The [facility] HospitalComment on above: Performed By: #### CBC ####[facility] Yrymwvaagd0246 [place], [place] [address]Alsvct KarenMonocytes0.7 103/ulNormal0.3-0.8The [facility] HealthComment on above:Performed By: #### CBC ####[facility] Chemfzarbb5414 [place], [place] [address]Jzbevj KarenMonocytes/100 leukocytes7.1 %Normal1.7-12.0The [facility] on above:Performed By: #### CBC ####[facility] Usrgekmzxj[address] [place], [place] [address]Gerken KarenNeutrophils6.3 103/ulNormal1.4-6.5The [facility]Com[facility] on above:Performed By: #### CBC ####[facility] Mbfltlsthr[address] [place], [place] [address]Gerken KarenNeutrophils/100 WBC Auto (Bld)68.6 %Normal 43.0-75.0The [facility]Com[facility] hospital on above:Performed By: #### CBC ####[facility] Uowlmypcdn[address] [place] [address] KarenPlatelet mean volume (PMV)9.6 fLNormal9.5-13.5The [facility] on above:Performed By: #### CBC ####[facility] Slluzlygrc[address] [place], [place] [address]Gerken TnalfZhoyvzjhx366 103/fnLaffum058-437Lpu [facility]Com[facility] on above:Performed By: #### CBC ####[facility] Zvfxetufel[address] [place] [address]Fdlnrj KarenWBC (Leukocytes) 9.3 103/ulNormal4.0-11.0The [facility] on above:Performed By: #### CBC ####[facility] Dyegyzhtxa[address] [place], [place] [address]Gerken KarenLIPID PROFILEon 44-81-5141VPIU-HDL RATIO NORMSEE BELOWNormalThe [facility] HealthComment on above:Result Comment: 3.3 - 4.4 LOW RISK 4.4 - 7.1 AVERAGE RISK 7.1 - 11.0 MODERATE RISK >11.0 HIGH RISKPerformed By: #### LIPID, CMP ####[facility] Beqyafltsq0146 [place], [place] [address]Gerken FtnobPflxifrarih488 mg/dLNormal<=200[facility] HospitalComascension stand[facility] hospital on above:Performed By: #### LIPID, CMP ####[facility] Cnbyzryfss3278 [place], [place] [address]Nilbjf KarenCholesterol to HDL Ratio4.0 {ratio} NormalCleveland Clinic Medina HospitalComascension standish hospital on above:Performed By: #### LIPID, CMP ####[facility] Ozerdhmqka2785 [place], [place] [address]Sjyouh KarenHDL Cholesterol> or = 60 mg/dl - LOW CARDIOVASCULAR RISK <40 mg/dl - HIGH CARDIOVASCULAR RISKKettering Health HamiltonComascension standish hospital on above:Performed By: #### LIPID, CMP ####[facility] Leanspunzn[address] [place] [address]Nxrhdj KarenHDL Iepthfgjywc33 mg/dLKettering Health HamiltonComascension standish hospital on above:Performed By: #### LIPID, CMP ####[facility] Bgmeusxgfu[address] [place] [address]Veefzh KarenLDL CholesterolSEE BELOWKettering Health HamiltonComascension standish hospital on above:Result Comment: <100 mg/dl OPTIMAL 100 - 129 mg/dl NEAR OR ABOVE OPTIMAL 130 - 159 mg/dl BORDERLINE HIGH 160 - 189 mg/dl HIGH >190 mg/dl VERY HIGHPerformed By: #### LIPID, CMP ####[facility] Fbdcvvqzir9903 [place], [place] [address]Gbegfg KarenLDL Cholesterol 84.0 mg/dLKettering Health HamiltonComascension standish hospital on above:Performed By: #### LIPID, CMP ####[facility] V[address]peccfyzn25[address] [place] [address]Gerken NqtimRuslocilwgcz86 mg/dLNormal<=150[facility] HospitalComasc[facility] stand[facility] on above:Performed By: #### LIPID, CMP ####[facility] Rmytlavqwi8144 [address] KarenVLDL CALC20.0 mg/dLNormalThe [facility] HealthComment on above:Performed By: #### LIPID, CMP ####[facility] Bmscwhpzkx[address] [place] [address] KarenPROF 14(COMP METB)on 73-90-6151Maggiyy aminotransferase (ALT)35 U/AUhzczy11-08Owq [facility] HealthComment on above:Performed By: #### LIPID, CMP ####[facility] Tbzqbhmuxt[address] [place] [address] KarenAlbumin4.0 g/dL Normal3.5-5.0The [facility] HealthComment on above:Performed By: #### LIPID, CMP ####[facility] Fekyorkehm[address] [place] [address] KarenAlbumin/Globulin Ratio1.3 {ratio}NormalThe [facility] on above:Performed By: #### LIPID, CMP ####[facility] Yejzjlhrro54[address] [place] [address] KarenAlkaline phosphatase (ALP)99 U/L Sigsax15-086Qwv [facility] HealthComment on above:Performed By: #### LIPID, CMP ####[facility] Iewjfpytcv[address] [place] [address] KarenAnion gap15.2 mmol/LNormalThe [facility] HealthComasc[facility] on above:Performed By: #### LIPID, CMP ####[facility] Bfyyduqvoh[address] [place] [address] KarenAspartate aminotransferase (AST)23 U/L Gszwcb28-99Zln [facility] HealthComment on above:Performed By: #### LIPID, CMP ####[facility] Qevjaymxzd[address] [place], [place] [address] KarenBilirubin Ql (U)0.8 mg/dLNormal0.2-1.3The [facility] HealthComment on above:Performed By: #### LIPID, CMP ####[facility] Liewdjvgry[address] [place] [address] KarenBUN/Creatinine Ratio18.2 mg/mgNormal [facility] HospitalCom[facility] on above:Performed By: #### LIPID, CMP ####[facility] Bowhrdwhxx3221 [address] KarenCalcium 9.1 mg/dLNormal8.4-10.2The [facility] HealthComment on above:Performed By: #### LIPID, CMP ####[facility] Rqgepsyplb0065 [address] BjeqhVjverfsd798 mmol/CBdxibv76-488Jxe [facility] HealthComment on above:Performed By: #### LIPID, CMP ####[facility] Jhjsqsmanl[address] [place] [address] JxtlvVA639.0 mmol/WSlkdgf38.0-30.0The [facility] on above:Performed By: #### LIPID, CMP ####[facility] Gospefuvhp84[address] [place] [address] [place] Creatinine0.87 mg/dLNormal0.66-1.25The [facility] HealthCom[facility] on above: Performed By: #### LIPID, CMP ####[facility] Zjdkcagnpe[address] [place] [address] KareneGFR (non-black)mL/min/{1.73_m2}Normal>=60 The [facility]Com[facility] on above:Performed By: #### LIPID, CMP ####[facility] Tstuljsxzs[address] [place] [address] [place] Globulin3.0 g/dLNormalThe [facility] HealthComasc[facility] hospital on above:Performed By: #### LIPID, CMP ####[facility] Dbfuuddpbz6247[address] [place] [address] KarenGlucose mass enpn880 mg/dLCritically yvya36-049Dud [facility] on above:Performed By: #### LIPID, CMP ####[facility] Spkppzsxyl16[address] [place] [address] KarenPotassium molar conc3.9 mmol/LNormal3.4-5.0The [facility] HospitalComment on above:Performed By: #### LIPID, CMP ####[facility] Zndiwparin3101 [place], [place] [address]Bhgrzj KarenProtein7.0 g/dLNormal6.1-8.2The [facility] HealthComment on above:Performed By: #### LIPID, CMP ####[facility] Rnzfncblcc4144 [place] [address]Gerken AvgzcIzdxbo437 mmol/KMxlevm136-926Yay [facility] HealthComment on above:Performed By: #### LIPID, CMP ####[facility] Tyvjfemzht1845 [place], [place] [address]Maiwcj KarenUrea tyvbjxhm61.0 mg/dLNormal9.0-20.0The [facility] HealthComment on above:Performed By: #### LIPID, CMP ####[facility] Yrhsdzhabw5120 [address] KarenPSAon 35-52-7126IRV2.52 ng/mLNormal<=4.00 The [facility] HealthComment on above:Performed By: #### PSAD ####[facility] Gomwdtoctx6442 [place], [place] [address]Orcpqt [place] Vital Signs Date TimeVital SignValuePerforming UxyvmehzqQdyojxwr20-40-8907 10:00-0400 Diastolic blood ldbnltfy29 mm[Hg]Bradley Antonio MD Work Phone: 1([phone] [place], [place] 4531710-16-2025 10:00-0400 Systolic blood aosuhqhc28 mm[Hg]Bradley Antonio MD Work Phone: [phone])[address]10-16-2025 09:42-0400 Body .7 cmBradley Antonio MD Work Phone: [phone])[address]68 [address]10-16-2025 09:42-0400 Body mass index (BMI) [Ratio]42.73 kg/i0CeaycudBradley Antonio MD Work Phone: 4(523)352-[address] [place], [place] 4531710-16-2025 09:42-0400 Body yzouux576.46 kgBradley Antonio MD Work Phone: [facility]10-16-2025 09:42-0400 Heart rate72 /minBradley Antonio MD Work Phone: [facility]07-15-2025 11:32-0400 Body kguzfr581.7 cmLisaginette Brown DPM Work Phone: [facility] HospitalPokpargvgq87-09-6964 11:32-0400Body mass index (BMI) [Ratio]39.68 kg/t6Bkomzvqz Brown DPM Work Phone: [facility] HospitalDqcdopzjcs45-09-9781 11:32-0400Body .39 kgNicashleyginette Brown DPM Work Phone: [facility] HospitalXxwmzvicpw40-27-4444 11:32-0400Respiratory rate16 /minJose Brown DPM Work Phone: [facility] HospitalGhlwjwasgk30-33-7076 09:22-0400Body gfaaek267.7 cmMarc Dolce DPM FACFAS Work Phone: [phone])[address]04-25-2025 09:22-0400Body mass index (BMI) [Ratio]39.68 kg/m2Marc Dolce DPM FACFAS Work Phone: [phone])[address]124 [address]04-25-2025 09:22-0400Body ibrfgo262.39 kgMarc Dolce DPM FACFAS Work Phone: [phone])[address] [place], [place] 00[address]604-25-2025 09:22-0400Diastolic blood qirhtdgt99 mm[Hg]Emre Whittington DPM FACFAS Work Phone: 1(345)[address] [place], [place] 00[address]604-25-2025 09:22-0400Heart rate75 /min Emre Whittington DPM FACFAS Work Phone: [phone])[address]04-25-2025 09:22-0400Systolic blood pzqygkly938 mm[Hg]Emre Whittington DPM FACFAS Work Phone: 1(348)[address] [place], [place] 00[address]604-01-2025 09:49-0400Body jtifjf348.7 cmBradley Antonio MD Work Phone: 1(710)268-[address] [place], [place] 4531704-01-2025 09:49-0400 Body mass index (BMI) [Ratio]42.42 kg/j1SitgwpsBradley Antonio MD Work Phone: [phone])[address]04-01-2025 09:49-0400 Body ludyqw420.55 kgBradley Antonio MD Work Phone: [phone])[address]68 [address]04-01-2025 09:49-0400 Diastolic blood ewewtnrd11 mm[Hg]Bradley Antonio MD Work Phone: [phone])[address]04-01-2025 09:49-0400 Heart rate79 /minBradley Antonio MD Work Phone: 1(483)[address]04-01-2025 09:49-0400 Systolic blood mdodcijn898 mm[Hg]Bradley Antonio MD Work Phone: 1(651)371-[address] [place], [place] 4531702-12-2025 10:10-0500 Body grmcag483.7 cmMarzoë Whittington DPM FACFAS Work Phone: [phone])[address] [place], [place] 0073602-12-2025 10:10-0500Body mass index (BMI) [Ratio]39.68 kg/m2Marzoë Collinsce DPM FACFAS Work Phone: 1(571)[address] [place], [place] 0073602-12-2025 10:10-0500Body exjzfu786.39 kgMarc Dolce DPM FACFAS Work Phone: 1(194)[address] [place], [place] 0073602-12-2025 10:10-0500Diastolic blood gmumleop93 mm[Hg]Emre Whittington DPM FACFAS Work Phone: [phone])[address] [place], [place] 0073602-12-2025 10:10-0500Heart rate75 /min Emre Whittington DPM FACFAS Work Phone: 1(607)[address] [place], [place] 0073602-12-2025 10:10-0500Systolic blood mm[Hg]Emre Whittington DPM FACFAS Work Phone: [facility] HospitalQekkrzeagv17-49-3368 12:29-0500Body eqhtxx925.7 cmAshiv Melchor SCIENCE AND OPERATIONS OFFICER Work Phone: [facility] HospitalRmqknuwqns13-41-9939 12:29-0500Body mass index (BMI) [Ratio]39.53 kg/y2HzpjejHaleigh Koenigr SCIENCE AND OPERATIONS OFFICER Work Phone: [facility] HospitalPgoalbjcsq43-47-7561 12:29-0500Body ysnrfq137.94 kgHaleigh Koenigr SCIENCE AND OPERATIONS OFFICER Work Phone: [facility] HospitalSczetrjrdd48-77-8112 12:29-0500Diastolic blood xtkahsdk41 mm[Hg]Haleigh Melchor SCIENCE AND OPERATIONS OFFICER Work Phone: [facility] HospitalBdndctprxm78-08-8203 12:29-0500Heart rate61 /min Haleigh Koenigedwige SCIENCE AND OPERATIONS OFFICER Work Phone: [facility] HospitalLgexoavdln00-84-1349 12:29-4082CjT4% (BldA) [Mass fraction]92 %Haleigh Melchor SCIENCE AND OPERATIONS OFFICER Work Phone: [facility] HospitalArythksvll62-25-4235 12:29-0500Systolic blood dseamemc995 mm[Hg]Haleigh Melchor SCIENCE AND OPERATIONS OFFICER Work Phone: [facility] HospitalQqlxllqsnr95-27-2225 12:16-0400Body .88 cmDO W Ranjan Maciel Work Phone: [facility]10-14-2024 12:16-0400 Body cjeoqp009.45 kgDO W Ranjan Maciel Work Phone: [facility]10-09-2024 08:55-0400 Body uqzukm684.7 cmMarc Dolce DPM FACFAS Work Phone: [facility] HospitalXdsozjyvzl97-39-8564 08:55-0400Body mass index (BMI) [Ratio]42.79 kg/m2Marc Dolce DPM FACFAS Work Phone: [facility] HospitalJfhkkpnfgx54-39-8711 08:55-0400Body akqjxp498.64 kgMarc Dolce DPM FACFAS Work Phone: [facility] HospitalModabppupt17-23-1064 08:55-0400Diastolic blood skijtzna92 mm[Hg]Emre Whittington DPM FACFAS Work Phone: [facility] HospitalMrlhmbrede84-64-3572 08:55-0400Heart rate75 /min Emre Dennisjeronimo DPM FACFAS Work Phone: [facility] HospitalRmyasnmfbr63-85-8940 08:55-0400Systolic blood qnzakewf403 mm[Hg]Emre Dennisjeronimo DPM FACFAS Work Phone: [phone] HospitalJezzlafwau76-79-7152 10:53-0400Diastolic blood jviatcqm04 mm[Hg]Bradley Antonio MD Work Phone: [facility]09-17-2024 10:53-0400 Heart rate76 /minBradley Antonio MD Work Phone: [phone] [place], [place] 453[address]09-17-2024 10:53-0400 Systolic blood falvjoyx118 mm[Hg]Bradley Antonio MD Work Phone: [facility]09-16-2024 13:18-0400 Body mass index (BMI) [Ratio]42.79 kg/x3Ngpchiemzpp Dayron DO Work Phone: [facility] HospitalTuiyyqeudu61-39-4528 13:18-0400Body luooqg475.64 kgChristopher Dayron DO Work Phone: [place] [address]Mvdlmumwou61-52-9856 13:18-0400Diastolic blood xzygbdsq76 mm[Hg]Christopher Dayron DO Work Phone: [place] [address]Rrqftqgmax66-03-7491 13:18-0400Heart rate71 /min Christopher Dayron DO Work Phone: [place] [address]Agxybhogjf11-80-9519 13:18-5351UyM5% (BldA) [Mass fraction]98 %Christopher Dayron DO Work Phone: [place] [address]Fqaoopmjtn60-07-4989 13:18-0400Systolic blood ohoxbdsv822 mm[Hg]Avi Padgett DO Work Phone: [facility] HospitalLbamwwadcw97-98-8051 14:35-0400Diastolic blood yrzxcbke61 mm[Hg]DO W Ranjan Maciel Work Phone: 1([phone] [place], [place] 550[address]8-13-2024 14:35-0400 Heart rate60 /minDO W Ranjan Maciel Work Phone: [phone])[address]08-13-2024 14:35-0400 Respiratory rate16 /minDO W Ranjan Maciel Work Phone: [phone])[address]08-13-2024 14:35-0400 SaO2% (BldA) [Mass fraction]98 %DO W Ranjan Maciel Work Phone: [phone])[address]08-13-2024 14:35-0400 Systolic blood ychmzzkt105 mm[Hg]DO W Ranjan Maciel Work Phone: [phone])[address]08-13-2024 11:44-0400 Body melgqqetzlx83 [degF]DO W Ranjan Maciel Work Phone: 1(278)785-[address] [place], [place] 550[address]8-13-2024 07:50-0400 Body .72 cmDO W Ranjan Maciel Work Phone: [phone])[address]08-13-2024 07:50-0400 Body fkdohr363 kgDO W Ranjan Maciel Work Phone: 1(061)618-[address] [place], [place] [address]7-17-2024 09:00-0400 Blood Pressure LocationBakeily Ellingtonm [facility]07-17-2024 09:00-0400 Diastolic blood nxdlkfte27 mm[Hg]Baspooja [facility]07-17-2024 09:00-0400Heart rate75 /minBael Ellingtonm [facility]07-17-2024 09:00-1310ZsH4% (BldA) [Mass fraction]98 %Dayan Chen [facility]07-17-2024 09:00-0400 Systolic blood jyqysimb833 mm[Hg]Dayan Chen [facility]07-02-2024 08:39-0400Body ufjnop833.7 cmPham Cotter MACHINE [employer]ER[employer] HAND Work Phone: [phone] [place], [place] 453[address]07-02-2024 08:39-0400 Body mass index (BMI) [Ratio]47.14 kg/a8LdxkyPham Cotter MACHINE [employer]ER-[employer]ER HAND Work Phone: 1([phone])[address]07-02-2024 08:39-0400 Body wtahrk874.62 kgPham Cotter MACHINE [employer] MIXER-[employer]ER HAND Work Phone: 1([phone])[address]07-02-2024 08:39-0400 Diastolic blood tjuruqmb65 mm[Hg]Pham Cotter MACHINE [employer]IXER[employer]ER HAND Work Phone: 1(481)717-[address] [place], [place] [address]07-02-2024 08:39-0400 Heart rate70 /Patriapayam Cotter MACHINE [employer]ER[employer]ER HAND Work Phone: [phone])[address]07-02-2024 08:39-0400 Systolic blood buqmqowu672 mm[Hg]Pham Cotter MACHINE [employer]IXER[employer]ER HAND Work Phone: [phone])[address]05-31-2024 10:46-0400 Blood Pressure LocationDayan Chen [facility]05-31-2024 10:46-0400 Diastolic blood izkjtuhj27 mm[Hg]Dayan Chen [facility]05-31-2024 10:46-0400Heart rate61 /Vlad Chen [facility]05-31-2024 10:46-0534NfO7% (BldA) [Mass fraction]97 %Dayan Chen [facility]05-31-2024 10:46-0400 Systolic blood jbwyvwya208 mm[Hg]Dayan Chen [facility]04-01-2024 09:49-0400Body oirawf014.2 cmPham Cotter [employer]ACHINE [employer] Work Phone: [facility]04-01-2024 09:49-0400 Body mass index (BMI) [Ratio]46.83 kg/b8DjtmxPham Cotter [employer]ACHINE [employer] Work Phone: [facility]04-01-2024 09:49-0400 Body adbryz432.63 kgPham Cotter MACHINE SAND MIXER-PAINT MIXER HAND Work Phone: [phone] [place], [place] 4531704-01-2024 09:49-0400 Diastolic blood salgyiko41 mm[Hg]Phamstephanie Cotter MACHINE SAND MIXER-PAINT MIXER HAND Work Phone: [facility]04-01-2024 09:49-0400 Heart rate72 /minDglenis Cotter MACHINE SAND MIXER-PAINT MIXER HAND Work Phone: [facility]04-01-2024 09:49-0400 Systolic blood lufeezoj262 mm[Hg]Pham Cotter MACHINE SAND MIXER-PAINT MIXER HAND Work Phone: [facility]07-06-2023 08:19-0400 Body rtnofy679.64 cmThomas Payam Gonzales Work Phone: [phone]-Jggzp [facility] 250 DO Work Phone: 1(615) [phone] 08:19-0400Body mass index (BMI) [Ratio] 48.58 kg/g0Axiymd A Gonzales Work Phone: [facility] [facility] DO Work Phone: 1(435) [phone] 08:19-0400Body surface area Derived from formula2.38 y4Kzfcgp A Gonzales Work Phone: [facility] 250 DO Work Phone: 1(141) 522-458507-06-2023 08:19-0400Body yvupow797.53 kgThomas Payam Christian Work Phone: [phone]-Qcytv [facility] 250 DO Work Phone: 1(544) [phone] 08:19-0400Diastolic blood ualczndi24 mm[Hg] Jesse Gonzales Work Phone: [phone]-Uymxt [facility] [place] 250 DO Work Phone: 1([phone]) [phone] 08:19-0400Heart rate66 /minThomas Payam Gonzales Work Phone: [phone]-Egxjw [facility] 250 DO Work Phone: 1(377) [phone] 08:19-0400Systolic blood uaskfaat781 mm[Hg] Jesse Hare Gonzales Work Phone: [phone]-Peugu [facility] 250 DO Work Phone: 1(677) 525-168403-06-2023 10:52-0500Blood Pressure LocationPatrick [employer] [facility]03-06-2023 10:52-0500Diastolic blood jarafhyz52 mm[Hg]Karissa BANKS [facility]03-06-2023 10:52-0500Heart rate70 /minPatrick [employer] [facility]03-06-2023 10:52-0500Respiratory rate16 /minPatrick [employer] [facility]03-06-2023 10:52-0500Systolic blood wfulswer782 mm[Hg]Karissa [employer] [facility]07-13-2022 13:46-0400Body .64 cmThomas Payam Gonzales Work Phone: [phone]-Ikvgn [facility] 250 DO Work Phone: 1(402) [phone] 13:46-0400Body mass index (BMI) [Ratio] 47.61 kg/s6Nfttto Payam [employer] Work Phone: [phone]-Vhstj [facility] 250 DO Work Phone: 1([phone]) [phone] 13:46-0400Body surface area Derived from formula2.36 j2Dlymmx A [employer] Work Phone: [phone]-Ovsqu [facility] 250 DO Work Phone: 1(646) 375-889307-13-2022 13:46-0400Body aiusxl365.81 kgThomas A [employer] Work Phone: [phone]-Pzpec [place] [facility] 250 DO Work Phone: 1(256) [phone] 13:46-0400Diastolic blood mm[Hg] Jesse Payam Gonzales Work Phone: [facility] 250 DO Work Phone: 1(101) [phone] 13:46-0400Heart rate64 /minThomas Payam [employer] Work Phone: [phone]-Rnvhc [facility] 250 DO Work Phone: 1(534) [phone] 13:46-0400Systolic blood oygmhvaq838 mm[Hg] Jesse Gonzales Work Phone: [facility] 250 DO Work Phone: Encounters Encounter DateEncounter TypeCare ProviderFacilityStart: 04-15-2025 End: 17-74-7998miqgfdqtekSihf L SchwabFacility:FT FM BellevueStart: 04-08-2025 End: 38-79-2380Omgsip outpatient visit 25 minutesMoifeanyi Antonio MD Work Phone: UnBig Bend Regional Medical CenterComment on above:Two-vessel coronary artery disease (Primary Dx); Permanent atrial fibrillation (Multi); Mixed hyperlipidemia; Ischemic cardiomyopathy; Essential hypertension; penitentiary current use of 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 therapy; BMI 40.0-44.9, adult (Multi); Shortness of breath; Lower extremity edema; Never smoked tobacco; Traumatic hematoma of left upper arm, sequelaStart: 04-08-2025 End: 29-60-5869daoaihcvikVXAURAQHabersham Medical Center AmbulatoryStart: 03-25-2025 End: 72-95-5529ojfsdwkapwMkxoik X OrzechFacility:EU BellevueStart: 03-25-2025 End: 11-46-5403Mptshpi encounter procedureAurora X Orzech [facility] start: 03-22-2025 End: 05-61-6908djlfxuqdviKsgm L SchwabFacility:FT tart: 02-15-2025 End: 29-84-3373mfwnaukqsaFdzc L SchwabFacility:[facility]tart: 01-05-2025 End: 80-36-6129Subqrh Darien Whitney DPM Work Phone: [facility] OR PODStart: 01-05-2025 End: 68-97-4054Rdcbnw Darien Hare Brown DPM Work Phone: N[facility] OR PODStart: 01-05-2025 End: 02-34-6529Lzibfl outpatient visit 15 minutesNicerin Whitney DPM Work Phone: noMS OR PODComment on above:Venous insufficiency of both lower extremities (Primary Dx); Type 2 diabetes mellitus without complication, without long-term current use of insulin (HCC); Pain due to onychomycosis of toenails of both feetStart: 01-05-2025 End: 94-87-9261youeoimpsoATVNIQSB A BROWNNot AvailableStart: 11-18-2024 End: 34-98-9223Lvm Drop offJodi L Leroy [facility] Start: 11-18-2024 End: 40-66-1254khtditpwdhXdsc L SchwabFacility:FTMCStart: 10-16-2024 End: 38-37-5478Lhhncm flowsheetMarc D Dolce DPM FACFAS Work Phone: noms ASC PODStart: 10-16-2024 End: 17-87-2050Gswvhg flowsheetMarc D Dolce DPM FACFAS Work Phone: noms ASC PODStart: 10-16-2024 End: 72-90-4513Hcfbiyy encounter procedureMarc D Dolce DPM FACFAS Work Phone: noms NMA PODComment on above:Type 2 diabetes mellitus without complication, without long-term current use of insulin (Primary Dx); Onychomycosis; Pain in right toe(s); Pain in left toe(s)Start: 10-16-2024 End: 57-69-3281xcuvhypattBOHD D DOLCENot AvailableStart: 09-22-2024 End: 19-44-0965Hqukok outpatient visit 25 minutesBradley Antonio MD Work Phone: [facility] SystemComment on above:Two-vessel coronary artery disease (Primary Dx); 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; Permanent atrial fibrillation (Multi); Mixed hyperlipidemia; Ischemic cardiomyopathy; Essential hypertension; BMI 40.0-44.9, adult (Multi); Shortness of breath; Lower extremity edema; Never smoked tobacco; Essential (primary) hypertension; penitentiary current use of 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 therapyStart: 09-22-2024 End: 91-45-2208masmnqekdlTKYIZYP [facility] AmbulatoryStart: 09-11-2024 End: 04-17-7004xvymaiospdLchdieq R WATERSFacility:FTMCStart: 09-11-2024 End: 87-79-8909mvqorneqffGuxyulf R WATERSFacility:EU BellevueStart: 08-17-2024 End: 02-29-6037cmvskgxludBeuv L SchwabFacility:FT BellevueStart: 08-05-2024 End: 96-37-8904Soeovk flowsheetMarc D Dolce DPM FACFAS Work Phone: noms ASC PODStart: 08-05-2024 End: 70-45-2315Yeencc flowsheetMarc D Doljeronimo DPM FACFAS Work Phone: NOZF ASC PODStart: 08-05-2024 End: 94-02-7915Jkmfomu encounter procedureMarc D Nelsy DPM FACFAS Work Phone: NOOQ NMA PODComment on above:Type 2 diabetes mellitus without complication, without long-term current use of insulin (CMS/HCC) (P rimary Dx); Onychomycosis; Pain in right toe(s); Pain in left toe(s)Start: 08-05-2024 End: 52-74-2690rdavegvvrmOEEK D DENNISCENot AvailableStart: 06-22-2024 End: 85-45-7775Gop Drop offJodi L Leroy [facility] Start: 06-22-2024 End: 34-37-7826syxtxvatxwJydq L SchwabFacility:FT FM BellevueStart: 06-04-2024 End: 72-13-4958zqfslxzyksRkiu L SchwabFacility:FT FM BellevueStart: 06-02-2024 End: 95-19-2434Prmotg flowsToshia Melchor SCIENCE AND OPERATIONS OFFICER Work Phone: noms NE NEUROStart: 06-02-2024 End: 08-33-0654Wlctpw flowsheetHaleigh Melchor SCIENCE AND OPERATIONS OFFICER Work Phone: noms NE NEUROStart: 06-02-2024 End: 46-77-0703cldijcavapORIPQZ GILLMORNot AvailableStart: 06-02-2024 End: 08-78-2059Iqcpgl outpatient visit 25 minutesAngecarine Melchor SCIENCE AND OPERATIONS OFFICER Work Phone: noms NE NEUROComment on above:Memory impairment (Primary Dx); Essential hypertension (CMS/HCC); Type 2 diabetes mellitus with other neurologic complication, without long-term current use of insulin (CMS/HCC); Concentration deficitStart: 05-18-2024 End: 70-37-9892jgikqqnjjoAbhb L SchwabFacility:FTMCStart: 05-18-2024 End: 59-65-8142Plptnrv encounter procedureJodi L Leroy [facility] Start: 05-18-2024 End: 29-82-4194zlbklcwzuuOzad L SchwabFacility:FT FM BellevueStart: 05-14-2024 End: 94-10-1900yknjkxbyanEhul L SchwabFacility:FT FM BellevueStart: 05-04-2024 End: 05-29-2021xegykrkfoyCyvv L SchwabFacility:FT FM BellevueStart: 04-24-2024 End: 61-33-8621ktwhhyymjlEwvj L SchwabFacility:FT FM BellevueStart: 04-20-2024 End: 34-63-3726Lbwfsxm encounter procedureJose Moulton PhD Work Phone: noms ST NEUROLOGYComment on above:Memory impairment (Primary Dx); Concentration deficit; MIKAYLA (obstructive sleep apnea); Other insomniaStart: 04-20-2024 End: 48-53-6925ocpimuskdfMUDMDWZA DENBESTENNot AvailableStart: 04-20-2024 End: 31-41-6435Ikidqk flowsheetNicashleyas Lilysten PhD Work Phone: noms ST NEUROLOGYStart: 04-20-2024 End: 48-14-7160Glhhaq flowsheetJose Alanisbebrynn PhD Work Phone: noms ST NEUROLOGYStart: 04-08-2024 End: 02-72-8204Qdkkfya encounter procedureJose Moulton PhD Work Phone: noMS ST NEUROLOGYComment on above:Memory impairment (Primary Dx); Concentration deficit; MIKAYLA (obstructive sleep apnea); Other insomniaStart: 04-08-2024 End: 73-07-2654nrhqmoeudrTYDX DOLCENot AvailableStart: 04-07-2024 End: 01-41-2651Jlgkvkq encounter procedureDO Kyleigh Maciel Work Phone: [facility] [place] Work Phone: Start: 04-07-2024 End: 85-86-2517hvzvttsachTDY STAFFUc West Chester Hospital Ctr Work Phone: Start: 04-06-2024 End: 46-45-0955Rri-admission assessmentDayan Chen [facility] Start: 04-01-2024 End: 06-35-5100Abpmbj flowsheetMarc D Dolce DPM FACFAS Work Phone: noms ASC PODStart: 04-01-2024 End: 42-10-2994Efkhul flowsheetMarc D Dolce DPM FACFAS Work Phone: noms ASC PODStart: 04-01-2024 End: 80-10-2325Swhpvfe encounter procedureMarc D Dolce DPM FACFAS Work Phone: noms NMA PODComment on above:Type 2 diabetes mellitus without complication, without long-term current use of insulin ([facility]) (P rimary Dx); Onychomycosis; Pain in right toe(s); Pain in left toe(s)Start: 04-01-2024 End: 92-94-8422zcvpxyqyqwGYBS D DOLCENot AvailableStart: 03-23-2024 End: 96-56-1281Fgjztn Darien Moulton PhD Work Phone: noms ST NEUROLOGYStart: 03-23-2024 End: 21-64-8591Zqgjjh Darien Moulton PhD Work Phone: noms ST NEUROLOGYStart: 03-23-2024 End: 74-74-9894Vzfiddj encounter procedureJose Moulton PhD Work Phone: noms ST NEUROLOGYComment on above:Memory impairment (Primary Dx); Concentration deficit; MIKAYLA (obstructive sleep apnea); Other insomniaStart: 03-23-2024 End: 94-41-4642iuupnpzrdgHmaf L SchwabFacility:FT FM BellevueStart: 03-19-2024 End: 99-44-4029jzwhnhbgjsDdoh L SchwabFacility:FT FM BellevueStart: 03-13-2024 End: 32-99-7058yxbwjxgpvlNrki L SchwabFacility:FTMCStart: 03-13-2024 End: 21-14-1692Fnf Drop offJodi L Leroy [facility] Start: 03-12-2024 End: 38-88-4952cmqgmesifmEmyh L SchwabFacility:FT ueStart: 03-10-2024 End: 33-13-8757Jhyonznye Result EncounterChristopher Dayron DO Work Phone: noms External Department UnsolicitedStart: 03-10-2024 End: 17-59-8045Fhapixtap Result EncounterChristopher Dayron DO Work Phone: noms External Department UnsolicitedStart: 03-10-2024 End: 44-39-0036Eoogsd outpatient visit 25 minutesBradley Antonio MD Work Phone: [facility] SystemComment on above:Two-vessel coronary artery disease (Primary Dx); 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 Ross [facility] Start: 03-10-2024 End: 10-60-1536ccnzgdgtlgYyvavq E. RossFacility:FTMCStart: 03-10-2024 End: 82-54-8514Fjwpeja encounter procedureChodalysdaisyher EstrellaSergio Dayron [facility] Start: 03-09-2024 End: 22-40-5647Awdsgd flowsheetChristopher Dayron DO Work Phone: noms [place] [facility]TEStart: 03-09-2024 End: 48-27-9057Aaerun flowsheetChristopher Dayron DO Work Phone: noms [facility] [facility]TEStart: 03-09-2024 End: 56-35-6792Yzqoas outpatient new 45 minutesChristopher Padgett DO Work Phone: noms [facility] [facility] ROUTEComment on above:Memory impairment (Primary Dx); Essential hypertension (CMS/HCC); Type 2 diabetes mellitus with other neurologic complication, without long-term current use of insulin (CMS/HCC); Paroxysmal atrial fibrillation ([facility]/HCC)Start: 03-09-2024 End: 76-19-3680vevykkscynHHWYSXRKEMY HASSETTNot AvailableStart: 02-17-2024 End: 90-36-0357uohfktcxibKgjv L SchwabFacility:FT FM BellevueStart: 02-10-2024 End: 29-69-0003vscetychbhCtoy L SchwabFacility:CD:[id number]: 02-04-2024 End: 34-86-9143Efvgigqyu to same day surgery Nadia Maciel Work Phone: [facility]-Soft Iron Inspector Work Phone: Start: 02-04-2024 End: 50-08-9681ptdelwyhhuTXXPremier Health Ctr Work Phone: Start: 01-22-2024 End: 98-48-0015ixvvwkynzdDAZS Helena Victoria AvailableStart: 01-20-2024 End: 19-43-2801hgdvbhfpmjXlln L SchwabFacility:FT FM BellevueStart: 01-13-2024 Evaluation and management of inpatientSARA [facility]start: 15-66-2907Jgzkiwvrjw and management of inpatientSARA [facility]tart: 43-96-9725Zgeiuuwvfh and management of inpatientIDREES [facility] Hospitaltart: 01-12-2024 End: 11-80-0540Oncwnfwumq and management of inpatientMARIUM [facility]red Healthcaretart: 01-08-2024 End: 16-06-5965Jpccjhk encounter procedureBashar X [facility] Start: 12-24-2023 End: 57-39-0142Bkd-admission Seven COTTER [facility] Start: 12-24-2023 End: 36-17-8266Ifqado outpatient visit 15 Claudio Cotter MACHINE SAND MIXER-PAINT MIXER HAND Work Phone: [facility] SystemComment on above:Permanent atrial fibrillation (Multi) (Primary Dx); Essential hypertension; penitentiary current use of 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 therapy; BMI 45.0-49.9, adult (Multi); Lower extremity edema; Shortness of breathStart: 12-02-2023 End: 35-84-3909cdurocxgvlCAQYHLSumma Health Wadsworth - Rittman Medical Centertart: 11-29-2023 End: 30-94-4499Psbdbcu encounter procedureBashar X [facility] Start: 11-22-2023 End: 45-03-2938Vewhlns encounter procedureBashar X [facility] Start: 09-23-2023 End: 35-85-0948Ebtngn outpatient visit 15 Claudio Cotter MACHINE SAND MIXER-PAINT MIXER HAND Work Phone: [facility] on above:Permanent atrial fibrillation (CMS/HCC) (Primary Dx); penitentiary current use of 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 therapy; Essential hypertension; Type 2 diabetes mellitus without complication, without long-term current use of insulin (CMS/HCC); Lower extremity edema; BMI 45.0-49.9, adult (CMS/HCC)Start: 08-20-2023 End: 20-59-3097Lmlelql encounter procedureJEJODI YEPEZ [facility] start: 02-64-2799Crnqto outpatient visit 25 minutes Jesse Gonzales Work Phone: [phone]-Xeaum [place] [facility] 250 DO Work Phone: Start: 86-63-1001aflzgvcjedZeSergio Muñoz IIFacility:[id number]: 00-83-2512Pj RenewalThConcept3D [employer] Work Phone: [phone]-Qambb [place] [facility] 250 DO Work Phone: Start: 08-27-2022 End: 50-69-2540Qwgxsbb encounter procedureKarissa BANKS [facility] start: 48-66-6710Gd RenewalThConcept3D [employer] Work Phone: [phone]-Slyre [facility] 250 DO Work Phone: Start: 44-39-9430Npcxvrzqa encounterThomas A [employer] Work Phone: [phone]-Ihpdl [place] [facility] 250 DO Work Phone: Start: 19-47-8407Ce RenewalThomas [employer] Work Phone: [phone]-Eplvo [place] [facility] 250 DO Work Phone: Start: 39-60-9584Gzvepq outpatient visit 25 minutes Jesse Gonzales Work Phone: [phone]-Mefgl [place] [facility] 250 DO Work Phone: Start: 78-41-5317wwdwqhewuaHsSergio Crowder Karissadedrick Muñoz IIFacility:69354Evemw: 17-35-1142Kj RenewalNo PCP [facility] [place] 250 DO Work Phone: Start: 42-31-0379Nc RenewalNo PCP [facility] 250 DO Work Phone: Start: 10-04-2017 End: 48-67-3016UhspbdqmviEERZSHE W TOBEYFacility:H0Kymwq: 08-09-2017 End: 16-57-6266EsthobenyaMESWWYT HOYFacility:C7Visvg: 05-03-2017 End: 23-29-3323DyscqnszpuCAVCHZF W TOBEYFacility:H1 Procedures DateProcedureProcedure DetailPerforming ClinicianStart: 78-21-7949Muy routine ecg w/least 12 lds w/i&Elpidio Antonio MD Work Phone: Start: 39-86-8356MPG of headDO Kyleigh Maciel Work Phone: Start: 68-80-8401GTHH TSHChristopher Nievesett DO Work Phone: Start: 03-04-0778QY LHC & COR AngioDO W Ranjan Maciel Work Phone: Start: 00-89-1925RB Stent 1st Vessel CX DES W Ranjan Maciel Work Phone: Start: 00-91-7451MS Stent 1st Vessel LAD DESDO W Ranjan Maciel Work Phone: Start: 56-69-7991Jqtyk 1996 panel - Serum or Plasma Bradley Antonio MD Work Phone: Start: 41-24-9793GexcjgiyfgzlbwcrXynms: 05-13-2019 David Cotter MACHINE SAND MIXER-PAINT MIXER HAND Work Phone: Start: 63-18-2155GveddjyaphnUyfvdye WATERS Start: 74-70-7310Mqgilanrwqik cholecystectomyParadha BANKS Start: 93-47-5440Vimuiactcgfum prostatectomyKarissa BANKS Start: 49-95-8655Yvnyjlontr studiesKarissa BANKS Start: 91-89-9845Rvsrg replacement of hipPatrick JOCELYN Comment on above:leftStart: 18-36-4257uieo total knee arhroplastyKarissa BANKS Start: 99-86-8393dkxfo total knee arthroplastyKarissa BANKS arthroplasty of kneeNo PCP NoneCataract (disorder) Karissa JOCELYN Comment on above:bilat eyeCataract surgeryNo PCP None CholecystectomyNo PCP NoneERCP not completed due to anatomical derangements from previous surgeryRiradha BANKS History of placement of stent for coronary artery diseaseHx of heart artery stentDO Kyleigh Maciel Work Phone: Placement of stent in cardiac conduitChristopher Dayron prosthetic arthroplasty of the hipNo PCP NoneRepair of musculotendinous cuff of shoulderNo PCP NoneRepair of musculotendinous cuff of shoulderRitrick JOCELYN Comment on above:left shioulderTonsillectomyNo PCP None TonsillectomyPatrick JOCELYN Total colonoscopyNo PCP NoneTotal replacement of hip Jesse Gonzales Work Phone: Plan of Treatment DateCare ActivityDetailAuthorStart: 65-02-4355MJsS/Tdap/Td Vaccines (2 - Td or Tdap)DTaP/Tdap/Td Vaccines (2 - Td or Tdap)[facility] Start: 29-34-7189Ldkrrefxx for malignant neoplasm of colonNOMS HealthcareStart: 78-96-4320sksikhlxnfRsslebodtdEuokiibn:FT FM BellevueStart: 10-21-2025 End: 05-42-8604Cjkjjlm encounter mdospvjkq08/30/2026 10:30 AM EDT Office Visit [address] [place] [address] Bradley Antonio MD [address] [facility] 2, [address] [address] [facility]: 08-47-8757irpskqnfigYzqjvtjayhAaapsiwb:EU BellevueStart: 08-23-7165vlkygkrtmi AmbulatoryFacility:EU BellevueStart: 11-58-0264icenximqsyVenajyannxQgfjxlpu:FT FM BellevueStart: 15-44-8002xeshdaveapLfnxfsnmsdOdtaknhc:FT FM BellevueStart: 04-08-2025 End: 11-72-4552Wvxgzjm encounter /16/2025 10:50 AM EDT Office Visit [address] [place] [address] Bradley Antonio MD [address] [facility] 2, [address] [address] [facility]: 23-70-8787Xbmkg screening for proteinDiabetes: Urine Protein ScreeningNOParkland Health CenterStart: 64-02-1778RNJPQ-19 Vaccine ( season)COVID-19 Vaccine ( season)[facility]: 01-51-7595Kwtwrjttt vaccinationUnRegency Hospital Toledo: 27-83-5054Eeicphccp vaccinationInfluenza Vaccine (#1)[facility]: 99-18-6400Nnaps screening for proteinDiabetes: Urine Protein ScreeningNOParkland Health CenterStart: 79-36-4426Mtxhv panelLipid PanelUnRegency Hospital Toledo: 01-05-2025 End: 28-14-4228Yldldjb encounter bceyijbbq87/15/2025 11:30 AM EDT Office Visit [facility] [address] [place] [address] Jose Whitney DPM [address] [facility] [address] [place] [address] Type 2 diabetes mellitus without complication, without long- term current use of insulin (HCC) (Primary Dx); Venous insufficiency of both lower extremities; Pain due to onychomycosis of toenails of both feetNOMS SC POD Comment on above:Type 2 diabetes mellitus without complication, without long- term current use of insulin (HCC) (Primary Dx); Venous insufficiency of both lower extremities; Pain due to onychomycosis of toenails of both feetStart: 12-28-2024 End: 66-58-8901Azielso encounter typfnabyk73/07/2025 9:20 AM EDT Office [facility] [address] [facility] [place] [address] Emre Whittington DPM FACFAS [address] [facility] [place] [address] [facility] Ank[facility] SpecialistsStart: 47-57-6913Kurptodl screeningDiabetes: Retinopathy Screening [facility]Start: 10-16-2024 End: 93-09-8242Jzcnfqz encounter procedureNOMS NMA PODComment on above:Arrived Start: 09-22-2024 End: 83-94-6509Oaxtjig encounter nkefpokoe79/01/2025 9:40 AM EDT [address] [facility] [address] [place] [address] Bradley Antonio MD [address] [facility] 2, [address] [place] [address] [facility] SystemStart: 08-05-2024 End: 35-70-3685Vxxpwly encounter procedureNOMS NMA PODComment on above:Arrived Start: 06-02-2024 End: 27-12-9544Lgdlorq encounter /03/2024 12:40 PM EST Office Visit [facility] [address] [place] [address] Haleigh Melchor, SCIENCE AND OPERATIONS OFFICER [address] [place], [place] ArrivedNOMS NE NEUROComment on above:ArrivedStart: 05-11-2024 End: 55-77-3771Jzhigva encounter hetwuddtx43/18/2024 3:00 PM EST Office Visit [facility] [place] [address] [place] [address] Michaela Wang, DO [address] [place], [place] [id number] [facility] [place] [facility] ROUTEStart: 04-27-2024 End: 80-32-3776Vrtmkzq encounter /04/2024 12:15 PM EST Office Visit [facility] [address] [address] [place] [address] Avi Padgett, DO [address] [place] [address] [facility] ROUTEStart: 04-20-2024 End: 00-70-8118Zkhtzol encounter procedureNOMS NEUROLOGYComment on above: ArrivedStart: 04-08-2024 End: 39-42-8410Eqgrxlx encounter myibgfnkd19/16/2024 8:00 AM EDT Office Visit [facility] [address] [facility] [address] [place] [address] NEUROLOGYStart: 04-01-2024 End: 57-57-6749Kpfkanp encounter procedureNOMS NMA PODComment on above:Arrived Start: 03-23-2024 End: 34-87-6660Skugkud encounter procedureNOMS ST NEUROLOGYComment on above: Memory impairmentStart: 03-09-2024 End: 45-98-1138Yysnobrzr (Vitamin B12) [Mass/volume] in Serum or PlasmaVitamin B12 Lab Routine Memory impairment Expected: 03/09/2024 (Approximate), Expires: 03/09/2025NOTX HealthcareComment on above:Expected: 03/09/2024 (Approximate), Expires: 03/09/2025Start: 03-09-2024 End: 08-21-9928BU Brain WO and W contrast IVMR brain w and wo contrast routine Imaging Routine Memory impairment Expected: 03/09/2024, Expires:03/09/2025[facility] Work Phone: comment on above:Expected: 03/09/2024, Expires: 03/09/2025Start: 03-09-2024 End: 92-46-4506Lnjlnjqedvz [Units/volume] in Serum or PlasmaTSH Lab Routine Memory impairment Expected: 03/09/2024 (Approximate), Expires: 03/09/2025[facility] HealthcareComment on above:Expected: 03/09/2024 (Approximate), Expires: 03/09/2025Start: 03-09-2024 End: 27-66-2605Cdnglks encounter gumpixqlg44/16/2024 1:30 PM EDT Office Visit [facility] [address] [place] [address] Avi Padgett, DO [address] [place] [place] [address] ArrivedNOMEDINA HOSPITAL ROUTEComment on above:ArrivedStart: 31-44-9397VPVVS-19 Vaccine ( season)COVID-19 Vaccine ()[facility]: 02-23-2024 COVID-19 Vaccine ()COVID-19 Vaccine () [facility]: 36-73-1446Guzvomxtb vaccination [facility]: 66-47-9101IwkcfsggkHenry [facility]: 12-24-2023 End: 98-75-3465MR Heart Perfusion W stress and W radionuclide IVNuclear Stress Test Cardiac Nuclear Medicine Routine Shortness of breath Expected: 12/24/2023 (Approximate), Expires: 12/23/2025[facility] Work Phone: Comment on above:Expected: 12/24/2023 (Approximate), Expires: 12/23/2025Start: 16-92-5657GOG, Provider: Vel Muñoz, Status: Pen, Time: 8:40 AMFUV, Provider: Vel Muñoz, Status: Pen, Time: 8:40 AM-[facility] Heart-Sarah 250 DO Work Phone: Start: 12-24-2023 End: 11-18-3750Mflofcs encounter ouxhzsblr93/02/2024 8:40 AM EDT Office Visit [address] [place] [address] Vel Muñoz MD [address] [facility] 2, [facility] [address] [place] [address] [facility]: 92-86-0129QQMYO-19 Vaccine ( season)COVID-19 Vaccine ( season)[facility]: 32-01-0181FFDMX-19 Vaccine ( season)COVID-19 Vaccine ( season)[facility]: 52-28-0585FFI, Provider: Vel Muñoz, Status: Pen, Time: 8:30 AMFUV, Provider: Vel Muñoz, Status: Pen, [facility]: 8:30 [facility] Work Phone: Start: 67-61-0138SYX, Provider: Vel Muñoz, Status: Pen, Time: 2:00 PMFUV, Provider: Vel Muñoz, Status: Pen, Time: 2:00 [facility]MPross[facility]-[place] 250 DO Work Phone: Start: 40-55-2244YlrseplimvgwaleqMirgzxhnrmehlq [facility]: 45-56-2090Lluvtyxuvaum Vaccine: 65+ Years (1 of 1 - PCV)Pneumococcal Vaccine: 65+ Years (1 of 1 - PCV)[facility]: 09-12-2018Medicare Annual Wellness VisitMedicare Annual Wellness Visit (AWV)[facility]: 02-97-4776KYC High Risk: (Elderly (60+) or Population) (1 - Risk 60-74 years 1-dose series)RSV High Risk: (Elderly (60+) or Population) (1 - Risk 60-74 years 1-dose series)[facility]: 08-84-2073BHT patients and/or patients aged 60+ years (1 - 1-dose 60+ series)RSV patients and/or patients aged 60+ years (1 - 1-dose 60+ series) [facility]: 98-48-2709Hxbncsikfojx Vaccine: 65+ Years (1 of 1 - PCV)Pneumococcal Vaccine: 65+ Years (1 of 1 - PCV)[facility]: 65-85-4589Hmlgrzwf specific antigen measurementPSA Prostate Cancer ScreeningUniversity Hospitals TriPoint Medical Center: 30-53-1243Hybjsr Vaccines (1 of 2)Zoster Vaccines (1 of 2)[facility]: 18-56-7802RIjC/Tdap/Td Vaccines (1 - Tdap)DTaP/Tdap/Td Vaccines (1 - Tdap) [facility]: 16-16-1978Dczxyskbltvy vaccination Pneumococcal Vaccine (1 of 2 - PCV)[facility]: 31-99-6282Azati screening for proteinDiabetes: Urine Protein ScreeningUniversity Hospitals [facility]: 29-02-2464Uyuocmbzs C screeningHepatitis C ScreeningUnRegency Hospital [facility]: 23-22-3344Zvbsndqt foot examinationDiabetes: Foot ExamUnRegency Hospital [facility]: 1965 Glaucoma screeningDiabetes: Retinopathy ScreeningUniversity Hospitals [facility]: 15-67-5129Wpjyclyacokd Vaccine: 65+ Years (1 - PCV)Pneumococcal Vaccine: 65+ Years (1 - PCV)[facility]: 1961 Pneumococcal Vaccine: 65+ Years (1 of 2 - PCV)Pneumococcal Vaccine: 65+ Years (1 of 2 - PCV)[facility]: 86-17-7906MPC Vaccines (1 of 1 - Standard series)MMR Vaccines (1 of 1 - Standard series)[facility] Start: 16-21-4446Sndugc wellness visitWelcome to Medicare VisitUnRegency Hospital [facility]: 37-89-0352Gonihtyrev measurementCreatinine Level [facility]: 28-63-9795Unnzrhtdet A1c measurement Diabetes: Hemoglobin Q4NWgumsobhhoRegency Hospital Toledo: 45-13-4063Qpklh panelLipid PanelUnRegency Hospital [place]: 1955Medicare Annual Wellness (AWV)Medicare Annual Wellness (AWV)[facility]: 1955Medicare Annual Wellness VisitMedicare Annual Wellness Visit (AWV) [facility]: 31-21-8825Hmxclqdrw measurementPotassium LevelUnRegency Hospital [facility]: 69-98-2607Srhbeygmt for malignant neoplasm of colonUnRegency Hospital [place]: 93-94-3371Hncrm screening for proteinDiabetes: Urine Protein ScreeningWilson Street HospitalPatient EducationKnow your [facility] Work Phone: [facility] referralU[facility] Work Phone: Immunizations Immunization DateImmunizationNotesCare KfzgcblyXfryabto71-31-7425udzjmyr toxoid, reduced diphtheria toxoid, and acellular pertussis vaccine, adsorbedBradley Antonio MD Work Phone: [facility]10-01-2021Pfizer- BioNTech COVID-19 Vacc 30 MCG/0.3ML Intramuscular SuspensionThmarcello Gonzales Work Phone: [facility]03-19-2021Pfizer-BioNTech COVID-19 Vacc 30 MCG/0.3ML Intramuscular SuspensionNo PCP NoneExec[facility] 73-76-9236Ozpxlr-BioNTech COVID-19 Vacc 30 MCG/0.3ML Intramuscular Suspension Jesse Payam Gonzales Work Phone: [facility]02-26-2020SARS-CoV-2 (COVID-19) mRNA BNT-162b2 vaxKarissa BANKS [facility] HospitalNEGATED: Highlighted row has not occurred!68-63-6826kumikvtpq virus vaccine, unspecified formulationJoslava Pierre 189-2166Cgcpcm-ArkptSouth[facility] [place] NEGATED: Highlighted row has not occurred!48-82-6000iexzmxhaw virus vaccine, unspecified formulationKarissa BANKS [facility] Payers DatePayer CategoryPayerPolicy [id number] [id number] 2024Self-pay2024Medicare (Managed Care)[id number] [id number] [id number] [id number] [id number] 2.16.840.1.761315.3.57[id number] 2.16.840.1.705927.3.579.[id number] 2.16.840.1.815481.3.579.2.251372-00-3424Styjtyb65707211 2.16.840.1.470903.3.579.2.86435-93-0001Aztwwhm13791896 2.16.840.1.541506.3.579.2.62795-26-3269Vnlltqn74245566 2.16840.1.377195.3.579.2.49383-87-0131Kngmgct65455045 2.16840.1.062625.3.579.2.23768-89-0860Hilwwbl17804470 2.16840.1.616267.3.579.2.45430-94-5920Ibfpnmr11756246 2..1.181459.3.579.2.09227-98-0519Ydxyntv51603920 2.0.1.017979.3.579.2.58309-73-6216Abkiqfc14462913 2.160.1.205610.3.579.2.43215-62-1714Nqqadxu01168717 2.0.1.329588.3.579.2.55207-17-7031Uzkhkjs16256206 2..1.406980.3.579.2.30099-32-1396Inuithz44651304 2.840.1.557502.3.579.2.940801-73-0717Jbzmbdo8750010 2.0.1.002459.3.579.2.469362-72-6405Huwbasy9270496 2.840.1.208970.3.579.2.664290-20-3221Eqrqzos0721698 2.840.1.778727.3.579.2.351354-03-4733Uwlflgb6135996 2.16.840.1.869658.3.579.2.824726-42-7758Rgyjwzf6142683 2.16.840.1.798656.3.579.2.823971-19-0338Xgjpywq4843290 2.16.840.1.420328.3.579.2.895538-30-6363Xiopdyd8797519 2.16.840.1.574683.3.579.2.824949-69-5242Zwpnlac1605316 2..840.1.404851.3.579.2.611343-76-1600Gciumwt1669787 2.840.1.952040.3.579.2.116519-89-2617Ygkolin34509819 2.840.1.502941.3.579.2.84471-46-7197Obcrery04261281 2.840.1.198700.3.579.2.04460-74-8441Izkgmfy20740678 2..840.1.196055.3.579.2.82765-32-6197Woyergu15507688 2..1.352316.3.579.2.99956-98-2911Lxxwhsj16833430 2.840.1.131244.3.579.2.20185-40-4401Yhbroue48934919 2.16840.1.378707.3.579.2.01709-98-3318Lsfckyy42935072 2.16840.1.809579.3.579.2.17294-83-2374Nhrjltb70940971 2.16.840.1.150259.3.579.2.27274-79-2145Eynxigx57795750 2.16.840.1.704197.3.579.2.55890-78-9174Svekwss60669041 2.16.840.1.192766.3.579.2.64366-16-5173Molrwlk00185078 2.16.840.1.181608.3.579.2.64004-99-2856Mnbzubu82987770 2.16.840.1.060221.3.579.2.39999-74-4873Bgytrux00810348 2.16.840.1.525015.3.579.2.28724-49-9272Ylmmmhj771172049 2.16.840.1.569187.3.579.2.692803-05-1537Tcxaacu701721543 2.0.1.907280.3.579.2.257134-51-8578Hqagagm79866091 2.16840.1.769168.3.579.2.64640-80-4846Ffdlwpt53753031 2.16.840.1.049210.3.579.2.20415-86-1377Qzdbmsd56349022 2.160.1.029813.3.579.2.32783-48-7323Nrzggyo58633485 2.840.1.811847.3.579.2.93118-72-9842Sasatyq90016373 2.16.840.1.727846.3.579.2.59477-83-6166Jdasktz10884114 2.16840.1.059276.3.579.2.7UnknownHCAP/HFA/FAP Ytbmbp099499949 azefbm7k-953h-5k5v-5brc-7e070ismcdu2Hygdbwu91060558 2.16.840.1.171938.3.579.2.396Lnhpjlc12885553 2.16.840.1.339206.3.579.2.531 Social History DateTypeDetailFacilityStart: 09-23-2023 End: 27-32-3847Sokgapjp useCaffeine useMP-[facility] Heart-[place] 250 DO Work Phone: Start: 08-27-2022 End: 04-31-6305Fgpxcat smoking statusNever smoked tobacco (finding)[facility] on above:denies use. Tobacco smoking statusNeverExecutive [facility]rology of [facility] on above:denies use.Start: 09-23-2023 End: 09-81-6026Spk Assigned At [facility]: 09-23-2023 End: 53-08-5393Tmkfelj use and exposureSmokeless tobacco non-userUnSelect [facility] Work Phone: Start: 09-23-2023 End: 30-68-2842Lxugehr intakeLifetime non-drinker (finding)[facility] Work Phone: Start: 82-95-6984Zfp Assigned At [facility]athamNot on file [facility] Work Phone: Start: 09-13-2023 End: 80-08-6245Wssbjlwz to SARS-CoV-2 (event)Not sureUnSelect Medical Specialty Hospital [facility] NorthStart: 95-35-0657Slvgxpe smoking status NHISUnknown if ever smoked [facility]: 31-69-6881Zbt Assigned At [facility]: 04-01-2024 End: 59-08-6590Ejlojakzk beverage intakeDeferNOMS HealthcareSexual Orientation [facility] Start: 09-11-2018 End: 43-47-4548UgcPijn (finding)[facility] Medical Equipment Procedure CodeEquipment CodeEquipment Original TextEquipment IdentifierDates1 each by Other route if neededCL STENT DAVEY FRONTIER 2.25 X 22FDAStart: 29-14-8405GP STENT DAVEY FRONTIER 2.5 X 22FDAStart: 02-04-2024 Goals DatePatient GoalDesired Activity/Tjddl39-62-3836 Functional Status MvunErjabcgdgoBtbfgtXiycyriy48-92-4147Zfyexrxknk hnofmg89/28UnSelect [facility] Work Phone: 1(254) 798-844410901496-32-4555Nmokh signs72 04/08/2025 9:42 AM Shivani Mayer, [facility] Work Phone: 1(193) 621-284710-289346-37-3093KxelnwdnylWilson [address] Hospital Work Phone: 1(374) 642-529307-092807-22-1899Lnkoptijti StatusNoSelect [facility] Specialty [facility]05-31-2024Functional StatusM[facility]02-27-2024 Functional StatusN/AExec[facility] 47-65-5272Uuqjtqwven StatusN/AExec[facility] Clinical Notes 08-27-2022 to 03-25-2025 Note Date & MsyuFrpzIwyyqhdr18-90-2297 Hospital Discharge instructions Patient Education 03/25/2025 11:14:53 Cancer Screening for Males Cancer Screening for Males A cancer screening is a test or exam that checks for cancer. Work with your health care provider tocreate a cancer screening schedule that protects your health. Who should have screening? All people who are male should be considered for screening of certain cancers, including colorectalcancer, prostate cancer, lung cancer, and skin cancer. Your health care provider may recommend screenings for other types of cancer if: You have had cancer before. You have a family member with cancer. You have genes that could increase the risk of cancer. You have risk factors for certain cancers, such as current or past use of tobacco products or beingoverweight. What are the benefits of screening? Cancer screening is done to look for cancer in the very early stages, before it spreads and becomesharder to treat and before you would start [...] a flexible tube with a small camera isinserted into the rectum. CT colonography. This test [...] stool. For this test, you will need tocollect stool samples at home. Stool DNA test. This test looks for blood in stool and any changes in DNA that can lead to colon cancer. For this test, you will need to collect a stool sample at home and send it to a lab. All adults should have screenings starting at 45 years old and continuing through 75 years old. Formales 76 85 years old, the decision to [...] start screening at an earlier age. Talk withyour health care provider about which screening test [...] old. Talk with your health care provider aboutwhether screening is right for you and, if [...] if anything looks unusual. Males with a fvkqnm-gdkf-svdvzy risk for skin cancer may want to see a shipping specialist (assembler utility buildings) for an annual body check. Where to find more information [employer] [employer]: cancer.org Centers for Disease Control and Prevention: cdc.gov National Cancer Dol[place]: cancer.gov Contact a health care provider if: [...] provider. Document Revised: 06/18/2023 Document Reviewed: 12/31/2022 [employer] Patient Education 2023 [employer]. 03/25/2025 11:14:49 Overactive Bladder, Adult Overactive Bladder, [...] You may also have very sensitive muscles thatmake your bladder squeeze too soon. This condition [...] your health care provider. General instructions Take evsn-wac-pxmsutz and prescription medicines only as told by your health care provider. If you were prescribed an antibiotic medicine, take it as told by your health care provider. Do notstop taking the antibiotic even if you start [...] provider. Document Revised: 02/27/2021 Document Reviewed: 02/27/2021 [employer] Patient Education 2023 [employer]. 03/25/2025 11:14:49 Benign Prostatic Hyperplasia Benign Prostatic [...] urethra. Follow these instructions at home: Take tzmo-qpb-mzmucaq and prescription medicines only as told by [...] provider. Document Revised: 12/27/2021 Document Reviewed: 12/27/2021 [employer] Patient Education 2023 [employer]. Follow Up Care 09/11/2024 12:56:10 With:WILLIAM Christiansen APRN, MAXI Shaver, URL Address: When: Unknown Comments:6 mos psa [facility] Charity 10-02-2025 NotePatient Education Obstetrics and Gynecology Overactive Bladder, Adult [...] You may also have very sensitive muscles thatmake your bladder squeeze too soon. This condition [...] health care provider. General instructions ??? Take gzwx-tut-amsykir and prescription medicines only as told by your health care provider. ??? If you were prescribed an antibiotic medicine, take it as told by your health care provider. Donot stop taking the antibiotic even if you start to feel better. ??? Use any implants or pessary as told by your health care provider. ??? If needed, wear pads to absorb urine leakage. ??? Keep a log to track how much and when you drink, and whe (more content not included)...[facility]07-15-2025 History of Present illness Narrative* Jose Whitney, RITA - 01/05/2025 11:30 AM EDT Patient: Huang Robles : 1955 PCP: Avi [...] have tried no treatments for the condition. Statesswelling worstens with prolonged standing activities. Allergies: No [...] morning and 5 mg before bedtime., Disp: ,Rfl: Ascorbic Acid (vitamin C) 1000 MG tablet, [...] each by Other route if needed, Disp: ,Rfl: LORazepam (Ativan) 1 MG tablet, Take 1 [...] under the tongue every 5 (five) minutes ifneeded for chest pain, Disp: , Rfl: potassium [...] Strain: Low Risk (01/12/2024) Received from [facility] Overall Financial Resource Strain (CARDIA) Difficulty of Paying Living Expenses: Not hard at all Food Insecurity: No Food Insecurity (01/12/2024) Received from [facility] Hunger Vital Sign Within the past 12 months, you worried that your food would run out before you got the money to buymore.: Never true Ran Out of Food in the Last Year: Not on file Transportation Needs: No Transportation Needs (01/12/2024) Received from [facility] Transportation In the past 12 months, has lack of transportation kept you from medical appointments or from getting medications?: No Lack of Transportation (Non-Medical): Not on file Physical Activity: Not on file Stress: Not on file Social Connections: Not on file Intimate Partner Violence: Unknown (01/12/2024) Received from [facility] Humiliation, Afraid, Rape, and Kick questionnaire Fear of Current or Ex-Partner: No Emotionally Abused: Not on file Physically Abused: Not on file Sexually Abused: Not on file Housing Stability: Low Risk (01/12/2024) Received from [facility] Housing Stability Vital Sign Unable to Pay for Housing in the Last Year: Not on file Number of Places Lived in the Last Year: Not on file In the last 12 months, was there a time when you did not have a steady place to sleep or slept in ashelter (including now)?: No ROS: General: denies fever, chills, fatigue, malaise OBJECTIVE LE EXAM: DERM: Elongated thick yellow crumbly nails digits 1 through 10. Negative hair growth with thin shiny atrophic skin bilaterally. +1 pitting edema to bilateral ankles VASC: Negative DP and negative PT pedal pulses NEURO: 5.07 Kahlotus Iris monofilament test diminished to digits and [...] to both feet. Patient had a diabetic neurologicalexam today to both their feet and discussed proper shoe gear. Visit spent with patient education on condition and treatment of condition. Pt to continue with elevation of feet while resting or NWB. Discussed compression hose and the use of stockings for edema. Discussed condition in detail. Recommendation for efcn-alp-ukujndx compression stockings at this time and patient may consider wearing compression hose more frequently as he does have these Jose Whitney DPM documented in this encounterChristian HospitalGaqyqjrdrm45-89-4798 History of Present illness Narrative* Emre Whittington DPM FACFAS - 10/16/2024 9:00 AM EDT Images from the original note were not [...] Problems Diagnosis Date Noted Permanent atrial fibrillation (CMS/HCC) 10/03/2023 Class 3 severe obesity due to excess calories with serious comorbidity and body mass index (BMI) of45.0 to 49.9 in adult 10/03/2023 Primary hypertension (CMS/HCC) 10/03/2023 MIKAYLA (obstructive sleep apnea) 10/03/2023 Pedal edema 10/03/2023 Venous insufficiency of both lower extremities 10/03/2023 Type 2 diabetes mellitus without complication, without long-term current use of insulin 10/03/2023 Onychomycosis 10/03/2023 Macular degeneration 10/03/2023 Developmental disability 10/15/2023 Resolved Ambulatory Problems Diagnosis Date Noted No Resolved Ambulatory Problems Past Medical History: Diagnosis Date Diabetes mellitus ([facility]) Hypertension ([facility]) Medications: Current Outpatient Medications: albuterol HFA 90 mcg/act inhaler, Inhale 1 puff every 6 (six) hours if needed for wheezing or shortness of breath, Disp: , Rfl: apixaban (Eliquis) 5 MG tablet, Take 5 mg by mouth in the morning and 5 mg before bedtime., Disp: ,Rfl: Ascorbic Acid (vitamin C) 1000 MG tablet, [...] each by Other route if needed, Disp: ,Rfl: LORazepam (Ativan) 1 MG tablet, Take 1 [...] under the tongue every 5 (five) minutes ifneeded for chest pain, Disp: , Rfl: potassium [...] subungual debris. They were painful to palpation 56653 on the right 30555 on the left. VASC: DP /PT were nonpalpable bilateral. Capillary refill time < 3 seconds Digits 1-5 bilateral NEURO: Kahlotus Iris 5.07 monofilament was diminished B/L. Vibratory sensation was diminished b/l. Mild peripheral neuropathy noted in a stocking- glove orientation Musculoskeletal: Muscle strength was +5 over [...] the feet. We discussed routine visits to herprimary care physician to monitor the glucose levels as well. Today the nails were debrided both inlength and thickness 1 through 10. Patient was [...] have their nails trimmed only by a water pump installer to reduce the risk of injury or [...] timely intervention. RITA Murguia documented in this encounterChristian HospitalHscnerepde37-23-5300 History of Present illness Narrative* Bradley Antonio MD - 09/22/2024 9:40 AM EDT Chief Complaint Patient presents with Follow-up 6 [...] plan to switch Plavix back to aspirin in6-month 3. I continue to encourage him to [...] artery disease 2. 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 Follow Up In Cardiology 3. Permanent atrial fibrillation (Multi) 4. Mixed hyperlipidemia 5. Ischemic cardiomyopathy 6. Essential hypertension 7. BMI 40.0-44.9, adult (Multi) 8. Shortness of breath 9. Lower extremity edema 10. Never smoked tobacco Scribe Attestation By signing my name below, Diana Zapata LEOLA Childers Scribe attest that this documentation has been prepared under the direction and in the presence of MD Suraj. Provider Attestation - Scribe documentation All medical record entries made by the Scribe were at my direction and personally dictated by me. Ihave reviewed the chart and agree that the record accurately reflects my personal performance of the history, physical exam, discussion and plan. documented in [facility] Work Phone: 1(490) 486-640704-01-2025 Instructions* Patient Instructions* Shivani Lopes CMA - 09/22/2024 9:40 AM [...] time of your visit. documented in this encounterWilson Street Hospital Work Phone: 1(417) 629-297103-21-2025 NotePatient Education Obstetrics and Gynecology Overactive Bladder, Adult [...] You may also have very sensitive muscles thatmake your bladder squeeze too soon. This condition [...] health care provider. General instructions ??? Take xzes-xtx-prvvwez and prescription medicines only as told by your health care provider. ??? If you were prescribed an antibiotic medicine, take it as told by your health care provider. Donot stop taking the antibiotic even if you start to feel better. ??? Use any implants or pessary as told by your health care provider. ??? If needed, wear pads to absorb urine leakage. ??? Keep a log to track how much and when you drink, and whe (more content not included)...[facility]02-12-2025 History of Present illness Narrative* Emre Whittington DPM FACFAS - 08/05/2024 9:20 AM EST Images from the original note were not [...] Past Medical History: Diagnosis Date Diabetes mellitus ([facility]) Hypertension ([facility]) Medications: Current Outpatient Medications: albuterol HFA 90 mcg/act inhaler, Inhale 1 puff every 6 (six) hours if needed for wheezing or shortness of breath, Disp: , Rfl: apixaban (Eliquis) 5 MG tablet, Take 5 mg by mouth in the morning and 5 mg before bedtime., Disp: ,Rfl: Ascorbic Acid (vitamin C) 1000 MG tablet, [...] each by Other route if needed, Disp: ,Rfl: LORazepam (Ativan) 1 MG tablet, Take 1 [...] under the tongue every 5 (five) minutes ifneeded for chest pain, Disp: , Rfl: potassium [...] subungual debris. They were painful to palpation 93660 on the right 75791 on the left. VASC: DP /PT were nonpalpable bilateral. Capillary refill time < 3 seconds Digits 1-5 bilateral NEURO: Kahlotus Iris 5.07 monofilament was diminished B/L. Vibratory sensation was diminished b/l. Mild peripheral neuropathy noted in a stocking- glove orientation Musculoskeletal: Muscle strength was +5 over 5 all intrinsic and extrinsic muscles tested. ASSESSMENT 1. Type 2 diabetes mellitus without complication, without long-term current use of insulin ([facility]) 2. Onychomycosis 3. Pain in right toe(s) 4. Pain in left toe(s) PLAN The patient was educated on proper diabetic foot care. There educated on the etiology of onychomycosis. Also educated on performing regular inspections of the feet. We discussed routine visits to herprunc healthry care physician to monitor the glucose levels as well. Today the nails were debrided both inlength and thickness 1 through 10. Patient was [...] have their nails trimmed only by a water pump installer to reduce the risk of injury or [...] timely intervention. RITA Murguia documented in this encounterChristian [id number] History of Present illness Narrative* Jose [place], PhD - 04/20/2024 3:00 PM EDT Images from the original note were not included. Neuropsychology Jose [place], PhD NEUROPSYCHOLOGICAL EVALUATION FEEDBACK Results and recommendations discussed. Questions addressed. Thank you for allowing me to participate in the care of this individual. Please contact me with Service Route at [phone]. documented in this [facility]10-16-2024 History of Present illness Narrative* Jose [place], PhD - 04/08/2024 8:00 AM EDT Images from the original note were not [...] as this was something she desired to do.Independently managing medication, although sister reported that he is inconsistent with this. Patient reported no issues driving, sister provides transportation to most of his appointments. Minimal exercise. No change in social engagements. Poor sleep quality due to untreated MIKAYLA. Refuses treatment as his brother told him that a CPAP is awaste of time. Also sleeps poorly due to [...] note, patient reported feeling frustrated with the sccm administrator of this test and does not feel the score adequately reflects his abilities. No family neurological history. Denied any psychiatric history or other history regarding alcohol/substance abuse or smoking. [place] language Mal[place]ian. Completed high school education without any academic difficulties. 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 He lives [...] Purpose for current evaluation explained and patient agreedto participate. Performance validity testing revealed mildly variable levels of engagement which isexpected to have negatively influenced performance at times. Vision/Visuoconstruction: Binocular near-point visual acuity 20/20. Visual bang full to confrontation. Visuoconstruction 18th %ile. Nonverbal abstract reasoning 14th %ile. Copy of a complex geometric design <1st %ile with notable visuospatial distortion. Motor/Speed of Processing: Right-handed. Reconsignment Clerk strength 7th %ile with right-hand, 3rd %ile [...] problem-solving and cognitive flexibility 11-16th %ile, 2/6 categoriescompleted in 64 sorts. Responding absent of significant [...] he is uncomfortable using a CPAP, recommend consultationwith his sleep physician to discuss alternative treatment options. Memory strategies: Regularly and frequently review information that must be remembered. Link new information in as many ways as possible to already known information. This strategy creates several avenues for remembering the information later. Utilize external memory sources such as lists, date books, calendars, and pocket-size recorders forinformation that must be remembered. A smartphone is [...] of this individual. Please contact me with anyquestions at [phone]. documented in this encounterChristian [id number] History of Present illness Narrative* Emre Whittington DPM FACFAS - 04/01/2024 9:10 AM EDT Images from the original note were not [...] Past Medical History: Diagnosis Date Diabetes mellitus ([facility]) Hypertension ([facility]) Medications: Current Outpatient Medications: albuterol HFA 90 mcg/act inhaler, Inhale 1 puff every 6 (six) hours if needed for wheezing or shortness of breath, Disp: , Rfl: apixaban (Eliquis) 5 MG tablet, Take 5 mg by mouth in the morning and 5 mg before bedtime., Disp: ,Rfl: Ascorbic Acid (vitamin C) 1000 MG tablet, [...] each by Other route if needed, Disp: ,Rfl: LORazepam (Ativan) 1 MG tablet, Take 1 [...] subungual debris. They were painful to palpation [id number] on the right [id number] on the left. VASC: DP /PT were nonpalpable bilateral. Capillary refill time < 3 seconds Digits 1-5 bilateral NEURO: Kahlotus Iris 5.07 monofilament was diminished B/L. Vibratory sensation was diminished b/l. Mild peripheral neuropathy noted in a stocking- glove orientation Musculoskeletal: Muscle strength was +5 over 5 all intrinsic and extrinsic muscles tested. Radiographs: AP/MO/LAT: Diagnostic ultrasound: ASSESSMENT 1. Type 2 diabetes mellitus without complication, without long-term current use of insulin ([facility]) 2. Onychomycosis 3. Pain in right toe(s) 4. Pain in left toe(s) PLAN The patient was educated on proper diabetic foot care. There educated on the etiology of onychomycosis. Also educated on performing regular inspections of the feet. We discussed routine visits to herprunc healthry care physician to monitor the glucose levels as well. Today the nails were debrided both inlength and thickness 1 through 10. RITA Murguia documented in this encounterChristian [id number] History of Present illness Narrative* Jose Moulton, PhD - 03/23/2024 10:30 AM EDT Images from the original note were not [...] reported that he is inconsistent with this. Patientreported no issues driving, sister provides transportation to most of his appointments. Minimal exercise. No change in social engagements. Poor sleep quality due to untreated MIKAYLA. Refuses treatment as his brother told him that a CPAP is awaste of time. Also sleeps poorly due to [...] note, patient reported feeling frustrated with the sccm administrator of this test and does not feel the score adequately reflects his abilities. No family neurological history. Denied any psychiatric historyor other history regarding alcohol/substance abuse or smoking. Mo[place]-language Malawian. Completed high school education without any academic difficulties. 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 He lives alone. MEDICAL HISTORY/MEDICATION: Past Medical History: Diagnosis Date Diabetes mellitus ([facility]) Hypertension ([facility]) MEDICATIONS: Current Outpatient Medications Medication Instructions albuterol [...] of this individual. Please contact me with Service Route at [phone]. documented in this encounterChristian [id number] NotePatient Education Emergency Medicine Heart Attack A heart [...] these instructions at home: Medicines ? Take kpqz-pez-[id number] and prescription medicines only as told by [...] or tobacco. If you need help quitting, askyour doctor. ? Avoid secondhand smoke. ? Exercise [...] skipping beats. ? You (more content not included)...[facility]09-17-2024 History of Present illness Narrative* Bradley Antonio MD - 03/10/2024 11:00 AM EDT Lawrence Robles is a 68 y.o. male Chief Complaint Post-Cath HPI Patient is here for follow-up. He is a former patient of Dr. Muñoz. He is known to have a historyof coronary artery disease with recent PCI to [...] artery disease 2. 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 ([facility]) Follow Up In Cardiology Follow Up In Cardiology 3. Permanent atrial fibrillation (Multi) 4. Mixed hyperlipidemia 5. Ischemic cardiomyopathy 6. penitentiary current use of 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 therapy 7. BMI 40.0-44.9, adult (Multi) 8. Shortness of breath 9. Lower extremity edema 10. Never smoked tobacco Scribe Attestation By signing my name below, Diana Zapata LPN, Scribe attest that this documentation has been prepared under the direction and in the presence of MD Suraj. Provider Attestation - Scribe documentation All medical record entries made by the Scribe were at my direction and personally dictated by me. Ihave reviewed the chart and agree that the record accurately reflects my personal performance of the history, physical exam, discussion and plan. documented in this [facility] Work Phone: 1(823) 510-293509-17-2024 Instructions* Patient Instructions* Diana Haddad LPN - 03/10/2024 11:00 AM [...] Provided instructions on exercise. documented in this [facility] Work Phone: 1(242) 288-227909-16-2024 History of Present illness Narrative* Avi Padgett DO - 03/09/2024 1:30 PM EDT Images from the original note were not included. Chief complaint: Memory impairment Subjective Huang Robles, 68 y.o., male Huang is here for a neurologic consult at the request of Ina DAMON for memory changes, agitation and personality [...] medications. She states he has issues making smartchoices when it comes to food. She states [...] History: Diagnosis Date Diabetes mellitus (CMS/HCC) Hypertension (CMS/HCC) Past Surgical History: Procedure Laterality Date ROTATOR [...] Awake, alert to person, place and time. [place] cognitive assessment: . Impaired Luria 3 step. [...] and 0 in the lower extremities Coordination: Nzeksi-gp-cdmg testing and rapid alternating movements are normal Gait: Normal Review and summary of old records: Jonel cognitive assessment at [facility] on 03/09/2024: Assessment/Plan Diagnoses and all [...] the patient's [facility] and provides [facility]. Had a Jonel [...] and evaluate the information and determine proper treatmentcourse Pt has been fully educated on their diagnosis, lab results, treatment options, follow up plan, return instructions, and discussion of mental health issues documented in this encounterChristian [id number] Discharge summary Author Kyleigh Maciel [facility] February 04, 2024 9:59amNote Date/TimeAugust 2023 9:59[place] [address] Discharge Summary Signed Patient: Huang Robles MR#: [id number] : 1955 Acct:[id number] Age/Sex: 68 / M Adm Date: 4 [...] general cardiology for coronary reassessment following recent ACSwith revascularization of the proximal LAD in [place]; with persistent class III exertional dyspnea (anginal equivalent). Is noted to have residual disease in the OM branch at time of catheterization in [place], this wastreated conservatively Comorbidities are noted for [...] Surgeries and Procedures Operation Date: 02/04/24 09:15 Raheem?left heart catheterization [facility]?first vessel PCI [facility] second vessel PCI Complications Complications: None Discharge Plan Discharge Plan Patient Disposition: Home Diet: Low-Cholesterol Additional Instructions: DISCHARGE INSTRUCTIONS FOR ANGIOPLASTY/CORONARY/PERIPHERAL/STENT IMPLANT FOR ADULT ANTICOAGULATION -Since the greatest risk of a blood clot forming with the stent occurs in the first 2-3 weeks afterimplantation, you will need to take 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s for [...] doctor or pharmacist, without first calling the auto radio mechanic who implanted the stent. If you require [...] weight lifting, stair steppers, etc. until the auto radio mechanic approves these activities. Check with the auto radio mechanic on your first follow-up visit. CALL YOUR DESTINATION IMAGINATION COORDINATOR: -If bleeding should occur from the catheter insertion site- apply pressure to the site then immediately call us. -Report any fever, redness, drainage, increased swelling, or firmness at the catheter insertion site. Some bruising or slight swelling may be present at thetime of discharge. -Should arm or leg become cold, numb, white, or blue, contact the auto radio mechanic immediately. -IF you should experience episodes of angina, e.g. chest discomfort, heaviness, tightness, pressureburning with or without radiation to the neck, jaw, arms or back- use 1 Nitrostat tablet under yourtongue every 5-10 minutes and up to three tablets. IF NO RELIEF, CALL 911 or GO TO THE NEAREST EMERGENCY ROOM. -Please notify our office if you have recurrent angina. -Cardiac Rehab Education Provided. Participation in the Cardiopulmonary Rehabilitation program is recommended. The attending auto radio mechanic or a nurse clinician should provide you with specificinstructions regarding activity, diet, medications, and further follow up for you. Follow the medication instructions provided on your discharge. If the dosages and instructions on this sheet differ from the dosage and instructions on the bottle, follow the instructions on the bottle. [facility] is not responsible for incorrect prescription information [...] capsule 1 tab PO BID Follow Up: Kyleigh Maciel DO [Active Staff - D.O.] - [...] 3.99, Hgb 12.8 L, Hct 37.2 L, MCV93.2, MCH 32.0, MCHC 34.4, RDW 14.4, Plt Count 240, MPV 7.8, Neut % (Auto) 72.8, Lymph % (Auto) 16.1, [place] % (Auto) 8.4, Eos % (Auto) 1.8, Baso % (Auto) 0.9, Nucleat RBC Rel Count 0.1, Neut # (Auto) 5.3, Lymph # (Auto) 1.2, [place] # (Auto) 0.6, Eos # (Auto) 0.1, Baso # (Auto) 0.1, PT 15.0 H, INR 1.3, APTT 31.9, PHA Creatinine Clear 107.26, Sodium 133 L, Potassium 3.7, Chloride 100, Carbon Dioxide 23.2, Anion Gap 13.5, BUN 19, Creatinine 0.86, Est GFR (CKD- EPI) > 60.0, Triglycerides 55, Cholesterol 54 L, LDL Cholesterol, Calc 16, VLDL Cholesterol 11, HDL Cholesterol 27, Cholesterol/HDL Ratio 2.0 Documented By: Kyleigh Maciel DO 02/04/24 0955 Signed By: <Electronically signed by Kyleigh Maciel DO> 02/04/24 0959 [facility] Work Phone: 1(170) 396-853408-13-2024 Procedure [facility]08-13-2024 Procedure [facility]07-24-2024 Note Pt admitted to hospital for NSTEMI; hx of PAF, PVCs, DM II, HTN, MIKAYLA, depression, asthma, GERD. Pt's echo from 01/13/24 estimated LVEF 45%, which does not qualify pt for cardiac rehab (CR) therapy with HF diagnosis per [facility] eligibility criteria. Pt is eligible with NSTEMI and/or stent referral. I will watch for updates and follow up with pt, if appropriate. Cheryl Aly, ZACHARYN appeals rn Outpatient Coordinator [facility]iop[facility]habUnOhio[facility] Note Occupational Therapy Occupational Therapy Evaluation Patient Name: Huang Robles : 1955 Today's Date: 01/15/2024 Huang Robles is an 68 y.o. male who came from [facility] as a transfer with chest pain. NSTEMI, s/p cardiac cath, 1) successful PCI proximal LAD from 99 to 10% with a single drug eluting Synergy stent. General Subjective: friendly and cooperative, reports generalized weakness and fatigue but feeling better Patient Active Problem List Diagnosis NSTEMI (non-ST elevated myocardial infarction) ([facility]) Abdominal pain Pain in left hip Presence of left artificial hip joint Aftercare following joint replacement surgery Anemia in other chronic diseases classified elsewhere Asthma Other asthma BPH with urinary obstruction Choledocholithiasis Chronic GERD Class 3 severe obesity due to excess calories with serious comorbidity and body mass index (BMI) of 45.0 to 49.9 in adult ([facility]) Morbid obesity ([facility]) Constipation Depression Developmental disability Diabetes mellitus ([facility]) Difficulty in walking, not elsewhere classified Dyspnea Shortness of breath Edema Anticoagulated Fluid retention Establishing care with new doctor, encounter for Excessive sweating Family history of prostate cancer Fibromyalgia 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 Macular degeneration Major depressive disorder, recurrent, unspecified ([facility]) Muscle weakness (generalized) Nocturia BMI 45.0-49.9, adult ([facility]) Obesity, Class III, BMI 40-49.9 (morbid obesity) ([facility]) Onychomycosis MIKAYLA (obstructive sleep apnea) Osteoarthritis Primary generalized (osteo)arthritis Pain in left knee Paroxysmal atrial fibrillation ([facility]) Permanent atrial fibrillation ([facility]) Pedal edema Primary hypertension Type 2 diabetes mellitus without complications ([facility]) Unspecified abnormalities of gait and mobility Unspecified atrial flutter ([facility]) Urge incontinence Urinary urgency Venous insufficiency of [...] (BMI) of 45.0 to 49.9 in adult ([facility]) 10/03/2023 Constipation 01/12/2024 Depression 01/12/2024 Developmental disability 10/15/2023 Fibromyalgia 05/15/2015 Macular degeneration 10/03/2023 Onychomycosis 10/03/2023 MIKAYLA (obstructive sleep apnea) 10/03/2023 Osteoarthritis 01/12/2024 rght knee Paroxysmal atrial fibrillation ([facility]) 06/10/2015 Primary hypertension 02/25/2015 Last Assessment & Plan: Optimal in office Type 2 diabetes mellitus without complications ([facility]) 02/25/2015 Venous insufficiency of both lower extremities [...] Home Adaptive Equipment: Rollator, Cane, Sock aid, Printmaker, Lift Chair (sc, gb, [facility]) Home Layout: One level Home Access: Ramped entrance Bathroom Shower/Tub: Walk-in shower Prior Level of Function Prior Function Level of [place]: Independent with ADLs and functional transfers, Independent [...] A Little (Min Assist (more content not included)...[facility] 01-15-2024 NoteHospital Medicine Discharge Summary Final [...] Admission Diagnosis: NSTEMI (non-ST elevated myocardial infarction) ([facility]) [I21.4] Hospital course: 68 y.o. male who came from [facility] as a transfer with chest pain. the [...] showed cardiac enlargement. Transfer was initiated to [facility] for higher level care to be seen [...] including anticoagulation for atrial fibrillation/flutter. 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 Patient was [...] Department Center 01/23/2024 3:00 PM ABIGAIL Tomlinson. Your medication list START taking these medications Instructions [...] STOP taking these m (more content not included)...[facility]07-24-2024 NoteCardiology Progress Note Subjective Subjective: Huang [...] 122 QT Interval 478 QTC CALCULATION(BAZETT) 489 R-[place] 105 T Wave [place] 110 Impression Atrial fibrillation Right bundle branch [...] Bubble Study Result Date: 01/13/2024 1 1 [facility] Heart Station [address] [place] [address] [phone] (fax) Echocardiogram-[facility] Name: HUANG ROBLES Study Date: 01/13/2024 07:22 AM B/P: 107 mmHg/68 mmHg HR: 51 bpm Date of : 1955 Location: [facility] Height: 67 in. Age: 68 year(s) Patient [...] mildly reduced. EF bart (more content not included)...[facility]07-23-2024 Note Attestation signed by Marly Garcia [...] on Plavix and Eliquis. Marly Garcia MD, [facility] Cardiology Progress Note Subjective Subjective: Huang Robles [...] -- -- 64 18 97 % -- 01/13/242034 118/76 36.7 ???C (98.1 ???F) Temporal 85 [...] 122 QT Interval 478 QTC CALCULATION(BAZETT) 489 R-[place] 105 T Wave [place] 110 Impression Atrial fibrillation Right bundle branch [...] Bubble Study Result Date: 01/13/2024 1 1 [facility] Heart Station [address] [facility] [place], [place] [id number] (fax) Echocardiogram-[facility] Name: HUANG DIDION Study Date: 01/13/2024 07:22 AM B/P: 107 mmHg/68 mmHg HR: 51 bpm Date of : 1955 Location: [facility] Height: 67 in. Age: 68 year(s) Patient [...] Label Value Normal Va (more content not included)...[facility]07-23-2024 [facility] Progress [facility] - 01/14/2024 8:49 AM; Room: [facility]/3131-01 Admission: 01/12/2024 5:44 PM; Length of stay: 2 days THE HOSPITALIST TEAM PREFERS TO USE [employer] CHAT FOR COMMUNICATION 7AM-7PM. IF I DO NOT RESPOND WITHIN 15 MINUTES, PLEASE PAGE ME/CALL THROUGH THE CAT SCAN TECHNOLOGIST. 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 MIKAYLA (obstructive sleep apnea) Paroxysmal atrial fibrillation ([facility]) Primary hypertension Type 2 diabetes mellitus without complications ([facility]) Venous insufficiency of both lower extremities Assessment [...] mg, oral, Nightly bumet (more content not included)...[facility] 01-13-2024 NotePatient: Huang Robles Procedure Information Date/Time: 01/13/24 08 Procedure: Coronary angiography Location: [facility] / [facility] (Cath) Providers: Avi Maurice MD [...] products. Plan discussed with attending. Additional Equipment RequestsUnOhio[facility]07-22-2024 Note Hospital Medicine Daily Progress Note - 01/13/2024 7:47 AM; Room: [address] [place] [address] Admission: 01/12/2024 5:44 PM; Length of stay: 1 days THE HOSPITALIST TEAM PREFERS TO USE [employer] CHAT FOR COMMUNICATION 7AM-7PM. IF I DO NOT RESPOND WITHIN 15 MINUTES, PLEASE PAGE ME/CALL THROUGH THE CAT SCAN TECHNOLOGIST. FROM 7PM-7AM, PLEASE PAGE [phone](COVR) Code Status: Full Code Barriers to Discharge: [...] Intake/Output Summary (Last 24 hours) at 01/13/2024 0747 Last data filed at 01/13/2024 0641 Gross [...] Principal Problem: NSTEMI (non-ST elevated myocardial infarction) ([facility]) Active Problems: Asthma BPH with urinary obstruction Chronic GERD Class 3 severe obesity due to excess calories with serious comorbidity and body mass index (BMI) of 45.0 to 49.9 in adult ([facility]) Depression 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 MIKAYLA (obstructive sleep apnea) Paroxysmal atrial fibrillation ([facility]) Primary hypertension Type 2 diabetes mellitus without complications ([facility]) Venous insufficiency of both lower extremities Assessment [...] Left;Lower Assessments 01/12/2024 6:28 PM Site Assessment [place] VTE Prophylaxis: IV heparin Scheduled Meds aspirin, [...] from last 7 days Lab Units 01/13/24 023 SODIUM mmol/L 134* POTASSIUM mmol/L 3.7 CHLORIDE mmol/L 103 CO2 mmol/L 23 BUN mg/dL 12 CREATININE mg/dL 0.71 (more content not included)...[facility]07-21-2024 NoteHospital Medicine History and Physical 01/12/2024 10:13 PM THE HOSPITALIST TEAM PREFERS TO USE [employer] FOR COMMUNICATION 7AM-7PM. IF I DO NOT RESPOND WITHIN 15 MINUTES, PLEASE PAGE ME/CALL THROUGH THE CAT SCAN TECHNOLOGIST. FROM 7PM-7AM, PLEASE PAGE [phone](COVR) Chief Complaint Chest pain History of Present Illness Huang Robles is an 68 y.o. male who came from [facility] as a transfer with chest pain. the [...] showed cardiac enlargement. Transfer was initiated to [facility] for higher level care to be seen [...] including anticoagulation for atrial fibrillation/flutter. 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 Past medical [...] Date Noted NSTEMI (non-ST elevated myocardial infarction) ([facility]) 01/12/2024 Abdominal pain 01/12/2024 BPH with urinary obstruction 01/12/2024 Choledocholithiasis 01/12/2024 Chronic GERD 01/12/2024 Morbid obesity ([facility]) 01/12/2024 Constipation 01/12/2024 Depression 01/12/2024 Dyspnea 01/12/2024 Edema 01/12/2024 Anticoagulated 01/12/2024 Fluid retention 01/12/2024 Establishing care with new doctor, encounter for 01/12/2024 Excessive sweating 01/12/2024 Family history of prostate cancer 01/12/2024 Lightheadedness more content not included)...[facility]07-02-2024 Evaluation + Plan note* Assessment & Plan Note - DONNY Cartagena - 12/24/2023 10:31 AM EDTAssociated Problem(s): BMI 45.0- 49.9, adult (Multi) Weight is up 11 pounds, no overt volume overload [facility] Work Phone: 1(748) 761-342507-02-2024 Evaluation + Plan note* Assessment & Plan Note - DONNY Cartagena - 12/24/2023 10:31 AM EDT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 CHADS VASc 3 chronically anticoagulated full dose Eliquis age 68, weight 141 kg Denies bleeding diatheses [facility] Work Phone: 1(155) 668-274807-02-2024 Miscellaneous Notes* Assessment & Plan Note - DONNY Cartagena - 12/24/2023 10:31 AM EDTAssociated Problem(s): BMI 45.0-49.9, adult (Multi) Weight is up 11 pounds, no overt volume overload * Assessment & Plan Note - DONNY Cartagena - 12/24/2023 10:31 AM EDT 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 CHADS VASc [...] Chronic venous stasis changes [facility]: 1(304) 543-399507-02-2024 Evaluation + Plan note* Assessment & Plan Note - DONNY Cartagena - 12/24/2023 10:30 AM EDTAssociated Problem(s): Essential hypertension Optimal in office [facility] Work Phone: 1(389) 528-244107-02-2024 Evaluation + Plan note* Assessment & Plan Note - DONNY Cartagena - 12/24/2023 10:30 AM EDTAssociated Problem(s): Permanent atrial fibrillation (Multi) Chronic atrial fibrillation with treatment strategy rate control on metoprolol [facility] Work Phone: 1(338) 661-514007-02-2024 Evaluation + Plan note* Assessment & Plan Note - DONNY Cartagena - 12/24/2023 10:30 AM EDTAssociated Problem(s): Cardiac and Vasculature Pleasant 68-year-old gentleman with chronic atrial fibrillation, CHADS VASc 3 anticoagulated full dose Eliquis (68 y/o, Wt 136 KG) denies bleeding events, 2020 LVEF 65% with normal RV function. No known CAD. [facility] Work Phone: 1(532) 122-921907-02-2024 Evaluation + Plan note* Assessment & Plan Note - DONNY Cartagena - 12/24/2023 9:08 AM EDTAssociated Problem(s): Shortness of breath Seems to be worsening over last couple months No benefit from inhaler [facility] Work Phone: 1(776) 569-774107-02-2024 Evaluation + Plan note* Assessment & Plan Note - DONNY Cartagena - 12/24/2023 9:07 AM EDTAssociated Problem(s): Lower extremity edema Chronic venous stasis changes [facility] Work Phone: 1(959) 564-448107-02-2024 History of Present illness Narrative* DONNY Cartagena [...] on metoprolol Essential hypertension Optimal in office [facility] current use of 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 therapy CHADS VASc 3 chronically anticoagulated full dose [place] age 68, weight 141 kg Denies bleeding [...] detail with the patient and due to SCIENCE AND OPERATIONS OFFICER after testing Pham Cotter MSN, FRIEDA-PAINT MIXER HAND, PMHNP-[facility] Please excuse any errors in grammar or translation related to this dictation. Voice recognition software was utilized to prepare this document. documented [facility] [address] [facility] Work Phone: 1(755) 743-290107-02-2024 Instructions* Patient Instructions* DONNY Cartagena - 12/24/2023 [...] detail with the patient and due to SCIENCE AND OPERATIONS OFFICER after testing documented [facility] Work Phone: 1([phone]) 395-562704-01-2024 History of Present illness Narrative* Pham Cotter, MACHINE SAND MIXER-PAINT MIXER HAND - 09/23/2023 10:00 AM EDT Chief Complaint [...] List Items Addressed This Visit Diabetes mellitus ([facility]) Lower extremity edema Permanent atrial fibrillation ([facility]) - 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 Prescription drug management of cardiovascular medication for efficacy, adherence to treatment, side effect assessment and polypharmacy. Current treatment clinically warranted and to continue without modifications. 2. Return for follow-up; in the interim, contact the office if new symptoms arise. Dr. Muñoz as scheduled Pham Cotter MSN, MACHINE SAND MIXER-PAINT MIXER HAND, PMHNP-[facility] Please excuse any errors in grammar or translation related to this dictation. Voice recognition software was utilized to prepare this document. documented in this [facility] Work Phone: 1(477) 238-280304-01-2024 Instructions* Patient Instructions* DONNY Cartagena - 09/23/2023 [...] to Increase physical activity. documented in this [facility] Work Phone: 1(787) 280-125602-27-2024 Hospital Discharge instructions Patient Education 08/20/2023 13:26:19 [...] urethra. Follow these instructions at home: Take jvtz-uex-cyuybys and prescription medicines only as told by [...] provider. Document Revised: 12/27/2021 Document Reviewed: 12/27/2021 [employer] Patient Education 2022 [place]. Follow Up Care 08/27/2022 11:21:47 With:JENNA MULLER, CORBIN Johnson, URL Address: [address] [place] [address] When: Unknown [facility] [place] 03-06-2023 Hospital Discharge instructions Patient Education 08/27/2022 [...] urethra. Follow these instructions at home: Take ejyv-yyr-ootzxzp and prescription medicines only as told by [...] 06/10/2006 Document Revised: 05/05/2019 Document Reviewed: 07/15/2017 [employer] Patient Education 2019 [employer]. Follow Up Care 06/26/2021 10:34:20 With:Karissa BANKS MD, URL Address: [facility] [address] , [place] [address]- When: Unknown [facility] evaluation + Plan note Future Appointments Appointment Date:08/30/2023 10:45:00 AM Scheduled Provider:Karissa BANKS MD Location:[facility] Appointment Type:URO Office Visit Diagnostic Tests Pending * PSA Total 08/27/22 [facility] evaluation + Plan note Future Appointments Appointment Date:08/21/2024 08:45:00 AM Scheduled Provider:Kar[facility]ANKS MD [facility]O Office Visit Diagnostic Tests Pending * PSA Total 05/24/24 [facility] evaluation + Plan note Future Appointments Appointment Date:11/26/2023 02:00:00 PM Scheduled Provider:Ina Guevara Location:[facility] Appointment Type:FM New Patient - Adult Appointment Date:11/29/2023 07:30:00 AM Scheduled Provider: [facility] Type:PUL Pulmonary Function Test (FT) Appointment Date:11/29/2023 08:30:00 AM Scheduled Provider: [facility] Appoint[facility] Type:PUL Six Minute Walk Test (FT) Appointment Date:01/08/2024 09:15:00 AM Scheduled Provider:Dayan Chen MD [facility] Type:Pulmonary Follow Up (FT) Appointment Date:08/21/2024 08:45:00 AM Scheduled Provider:Karissa BANKS MD [facility] Type:URO Office Visit Future Scheduled Tests Radiology* XR Chest 2 Views [facility] Future App[facility]ments Appointment Date:01/08/2024 09:15:00 AM Scheduled Provider:Dayan Chen MD [facility] App[facility]ment Type:Pulmonary Follow Up (FT) Appointment Date:03/12/2024 09:30:00 AM Scheduled Provider: Location:[facility] Appointment Type: Medicare Wellness Subsequent Appointment Date:08/21/2024 08:45:00 AM Scheduled Provider:Karissa BANKS MD [facility] Type:URO Office Visit Future Scheduled Tests Radiology* XR Chest 2 Views [facility]29[facility]23 [facility] Future Appointments Appointment Date:01/20/2024 01:00:00 PM Scheduled Provider: [facility] Type:NM Myocard Spect Multi Rest/Stress-Res Appointment Date:01/20/2024 02:00:00 PM Scheduled Provider: Location:[facility] Appointment Type:NM Myocard Spect Multi Rest/Stress - R Appointment Date:01/21/2024 01:00:00 PM Scheduled Provider: [facility] App[facility] Type:NM Myocard Spect MultiRest/Stress-Stre Appointment Date:01/21/2024 02:00:00 PM Scheduled Provider: Location[facility] Appointment Type:NM Myocard Spect Multi Rest/Stress - S Appointment Date:03/12/2024 09:30:00 AM Scheduled Provider: Location:[facility] Appointment Type:FM Medicare Wellness Subsequent Appointment Date:04/06/2024 10:00:00 AM Scheduled Provider:Dayan Chen MD [facility] Type:Pulmonary Follow Up (FT) Appointment Date:08/21/2024 08:45:00 AM Scheduled Provider:Karissa BANKS MD [facility] Type:URO Office Visit Future Scheduled Tests Radiology* NM Myocardial Spect Rest/Stress 2 Day [facility]20/24 [facility] Future Appointments Appointment Date:02/17/2024 10:00:00 AM Scheduled Provider:Ina Guevara Location:[facility] Appointment Type: Open Appointment Date:03/12/2024 09:30:00 AM Scheduled [facility]: [facility] Wellness Subsequent Appointment Date:04/06/2024 10:00:00 AM Scheduled Provider:Dayan Chen MD Location[facility] Appointment Type:Pulmonary Follow Up (FT) Appointment Date:08/21/2024 08:45:00 AM Scheduled Provider:Karissa BANKS MD [facility] App[facility] Type:URO Office Visit [facility] Evaluation + Plan note Future Appointments Appointment Date:04/06/2024 10:00:00 AM Scheduled Provider:Dayan Chen MD Location[facility] Appointment Type:Pulmonary Follow Up (FT) Appointment Date:05/18/2024 10:00:00 AM Scheduled Provider:Ina Guevara [facility] Type:FM Open Appointment Date:08/21/2024 08:45:00 AM Scheduled Provider:Karissa BANKS MD [facility] App[facility] Type:URO Office Visit Appointment Date:03/22/2025 09:30:00 AM Scheduled Provider: Location:[facility] Appointment Type:FM Medicare Wellness Subsequent Diagnostic Tests Pending * HCV Antibody RFX to Quant PCR 03/13/24 [facility] ev8aweek + Plan note Future Appointments Appointment Date:05/18/2024 10:00:00 AM Scheduled Provider:Ina Guevara [facility] Type:FM Open Appointment Date:08/21/2024 08:45:00 AM Scheduled Provider:Karissa BANKS MD [facility] App[facility] Type:URO Office Visit Appointment Date:03/22/2025 09:30:00 AM Scheduled Provider: Location:[facility] Appointment Type:FM Medicare Wellness Subsequent [facility] evaluation + Plan note Future Appointments Appointment Date:06/22/2024 10:00:00 AM Scheduled Provider: Location:[facility] Appointment Type:FM Lab Draw Appointment Date:08/21/2024 08:45:00 AM Scheduled Provider:Karissa BANKS MD [facility] App[facility] Type:URO Office Visit Appointment Date:03/22/2025 09:30:00 AM Scheduled Provider: Location:[facility] Appointment Type:FM Medicare Wellness Subsequent [facility] evaluation + Plan note Future Appointments Appointment Date:03/12/2024 09:30:00 AM Scheduled Provider: Location:[facility] Appointment Type:FM Medicare Wellness Subsequent Appointment Date:04/06/2024 10:00:00 AM Scheduled Provider:Dayan Chen MD Location[facility] Appointment Type:Pulmonary Follow Up (FT) Appointment Date:05/18/2024 10:00:00 AM Scheduled Provider:Ina Guevara [facility] Type:FM Open Appointment Date:08/21/2024 08:45:00 AM Scheduled Provider:Karissa BANKS MD [facility] App[facility] Type:URO Office Visit [facility] evaluation + Plan note Future Appointments Appointment Date:08/21/2024 08:45:00 AM Scheduled Provider:Kar[facility]KS [facility] Type:[facility]O Office Visit Appointment Date:03/22/2025 09:30:00 AM Scheduled Provider: Location:[facility] Appointment Type:FM Medicare Wellness Subsequent [facility] Evaluation + Plan note Future Appointments Appointment Date:02/15/2025 10:20:00 AM Scheduled Provider:Ina Guevara [facility] Type:FM Open Appointment Date:03/22/2025 09:30:00 AM Scheduled Provider: Location:[facility] Appointment Type: Medicare Wellness Subsequent Appointment Date:03/26/2025 09:45:00 AM Scheduled Provider:Karissa BANKS MD [facility] Type:URO Office Visit [facility] evaluation + Plan note Future Appointments Appointment Date:05/03/2025 09:20:00 AM Scheduled Provider: Location:[facility] Appointment Type:FM Lab Draw Appointment Date:05/17/2025 10:40:00 AM Scheduled Provider:Ina Guevara [facility] Type:FM Open Appointment Date:09/16/2025 10:30:00 AM Scheduled Provider: Location:[facility] Appointment Type:URO Nurse Visit Appointment Date:09/23/2025 10:20:00 AM Scheduled Provider:WILLIAM Christiansen APRN, [place] [facility] Location:[facility] Appointment Type:URO Office Visit Appointment Date:03/28/2026 09:30:00 AM Scheduled Provider: Location:[facility] Appointment Type: Medicare Wellness Subsequent Future Scheduled Tests Laboratory* HgbA1c 03/22/25 * PSA Screen, Total 03/25/25 * Urine Microalbumin/Creatinine Ratio 03/22/25 * Comprehensive Metabolic Panel 03/22/25 * Lipid Panel 03/22/25 [facility] evaluation note* Diagnosis Permanent atrial fibrillation (CMS/HCC)- Primary 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 Essential hypertension Unspecified essential hypertension Type 2 diabetes mellitus without complication, without long-term current use of insulin (CMS/HCC) Lower extremity edema Edema BMI 45.0-49.9, adult (CMS/HCC) documented in this encounter [facility] Work Phone: Evaluation noteNo assessment information available [facility] Work Phone: Evaluation note* Diagnosis Type 2 [...] of insulin (CMS/HCC) Paroxysmal atrial fibrillation (CMS/HCC) Atrial fibrillation [facility] Diagnosis Memory impairment- Primary Memory loss Essential hypertension (CMS/HCC) Unspecified essential hypertension Type 2 diabetes mellitus with other neurologic complication, without long-term current use of insulin (CMS/HCC) Concentration deficit [facility]* Diagnosis Permanent atrial fibrillation (Multi)- Primary Atrial fibrillation Essential hypertension Unspecified essential hypertension [facility] current use of 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 therapy BMI 45.0-49.9, adult (Multi) Lower extremity edema Edema Shortness of breath documented in this encounter [facility] Work Phone: Evaluation note* Diagnosis Permanent atrial fibrillation (Multi)- Primary Atrial fibrillation Essential hypertension Unspecified essential hypertension penitentiary current use of 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 therapy BMI 45.0-49.9, adult (Multi) Lower extremity edema Edema Shortness of breath 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 (CMS-HCC)- Primary Shortness of breath Ischemic cardiomyopathy Other specified forms of chronic ischemic heart disease Permanent atrial fibrillation (Multi) 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 Essential hypertension Unspecified essential hypertension Mixed hyperlipidemia BMI 40.0-44.9, adult (Multi) Two-vessel coronary artery disease- Primary 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 (CMS-HCC) Permanent atrial fibrillation (Multi) Atrial fibrillation Mixed hyperlipidemia Ischemic cardiomyopathy Other specified forms of chronic ischemic heart disease penitentiary current use of 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 therapy BMI 40.0-44.9, adult (Multi) Shortness of breath Lower extremity edema Edema Never smoked tobacco documented in this encounter [facility] Work Phone: Evaluation note* Diagnosis Memory impairment- Primary Memory loss Concentration deficit MIKAYLA (obstructive sleep apnea) Obstructive sleep apnea (adult) (pediatric) Other insomnia [facility]* Diagnosis Type 2 diabetes mellitus without complication, without long-term current use of insulin ([facility])- Primary Onychomycosis Dermatophytosis of nail Pain in right toe(s) Pain in left toe(s) [facility]* Diagnosis Permanent atrial fibrillation (Multi)- Primary Atrial fibrillation Essential hypertension Unspecified essential hypertension [facility]it[facility]iary current use of 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 therapy BMI 45.0-49.9, adult (Multi) Lower extremity edema Edema Shortness of breath 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- Primary Shortness of breath Ischemic cardiomyopathy Other specified forms of chronic ischemic heart disease Permanent atrial fibrillation (Multi) 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 Essential hypertension Unspecified essential hypertension Mixed hyperlipidemia BMI 40.0-44.9, adult (Multi) Two-vessel coronary artery disease- Primary 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 Permanent atrial fibrillation (Multi) Atrial fibrillation Mixed hyperlipidemia Ischemic cardiomyopathy Other specified forms of chronic ischemic heart disease Essential hypertension Unspecified essential hypertension BMI 40.0-44.9, adult (Multi) Shortness of breath Lower extremity edema Edema Never smoked tobacco Essential (primary) hypertension Unspecified essential hypertension [facility] current use of 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 therapy documented in this encounter [facility] Work Phone: Evaluation note* Diagnosis Type 2 diabetes mellitus without complication, without long-term current use of insulin- Primary Onychomycosis Dermatophytosis of nail Pain in right toe(s) Pain in left toe(s) documented in this encounter [facility]* Diagnosis Venous insufficiency of both lower extremities- Primary Type 2 diabetes mellitus without complication, without long-term current use of insulin (HCC) Pain due to onychomycosis of toenails of both feet documented in this encounter [facility]* Diagnosis Permanent atrial fibrillation (Multi)- Primary Atrial fibrillation Essential hypertension Unspecified essential hypertension [facility] current use of 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 therapy BMI 45.0-49.9, adult (Multi) Lower extremity edema Edema Shortness of breath 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- Primary Shortness of breath Ischemic cardiomyopathy Other specified forms of chronic ischemic heart disease Permanent atrial fibrillation (Multi) 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 Essential hypertension Unspecified essential hypertension Mixed hyperlipidemia BMI 40.0-44.9, adult (Multi) Two-vessel coronary artery disease- Primary Permanent atrial fibrillation (Multi) Atrial fibrillation Mixed hyperlipidemia Ischemic cardiomyopathy Other specified forms of chronic ischemic heart disease Essential hypertension Unspecified 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 He is tolerating [...] of diet exercise and weight loss were advocated.-[facility] 250 DO Work Phone: History of Present [...] was also encouraged to [facility] legs [facility] Work Phone: History of Present [...] was also encouraged to keep his legs [facility] Work Phone: History of Present illness Narrative* Bradley Antonio MD - 04/08/2025 10:50 AM EDT Chief Complaint Patient presents with Follow-up 6 month follow up for Two-vessel coronary artery disease Subjective Huang Robles is a 69 y.o. male HPI Patient here for follow-up after management for coronary artery disease, chronic atrial fibrillation, LV systolic dysfunction, hypertension hyperlipidemia. Since last time I saw him he reported he had a fall injuring his left arm which developed significant swelling and hematoma. He went and visited the emergency room and conservative management was advised. He does have significant swelling and hematoma but maintain good peripheral pulse and good finger movement. He denies chest pain, palpitation, lightheadedness, dizziness or syncope. Assessment 1. Coronary artery disease with recent PCI to the LAD and marginal branch. He denies any angina. Hedescribed functional class II 2. Previous report of LV systolic dysfunction with LVEF around 45% seem to have improved recent echo showed normal ejection fraction 3. Chronic atrial fibrillation treated with heart rate control and long-term anticoagulation 4. Long-term anticoagulation unfortunately had a recent fall and left arm hematoma 5. Hyperlipidemia controlled with maximum dose atorvastatin 6. Hypertension controlled with Diovan 7. Chronic shortness of breath due to morbid obesity 8. The patient is diabetic 9. Recent fall with left arm hematoma Plan 1. I advised the patient to discontinue Plavix. I advised him in 2 to 3 weeks after his arm improved to start aspirin 81 mg twice weekly 2. I encouraged him to keep his arm elevated. I educated him about the risk of compartment syndrome. Advised him to go to the hospital immediately if he notices any tingling sensation or decrease function of his finger or worsening edema 3. I continue to encourage him to exercise and lose weight 4. I reviewed his recent ER visit online 5. I will see him back in the office in 6 months Review of Systems All other systems reviewed and are negative. Vitals: 04/08/25 0942 04/08/25 1000 BP: 86/60 (!) 99/28 BP Location: Right arm Patient Position: Sitting Pulse: 72 Weight: 127 kg (281 lb) Height: 1.727 m (5' 8 ) Objective Physical Exam Constitutional: Appearance: Normal appearance. [...] No edema. Left lower leg: No edema. Comments: Patient had significant swelling of left forearm with significant hematoma but good peripheral pulse and good motor function Skin: General: Skin is warm and dry. Neurological: General: No focal deficit present. Mental Status: He is alert. Psychiatric: Mood and Affect: Mood normal. Behavior: Behavior normal. Thought Content: Thought content normal. Judgment: Judgment normal. Allergies Patient has no known allergies. Current Medications Current Outpatient Medications Medication Instructions albuterol (Ventolin HFA) 90 mcg/actuation inhaler Inhale. ascorbic acid (Vitamin C) 1,000 mg tablet 1 tablet, Daily aspirin 162 mg, oral, Daily atorvastatin (LIPITOR) 80 mg, oral, Nightly bumetanide (BUMEX) 1 mg, oral, Daily cyanocobalamin (VITAMIN B-12) 1,000 mcg, Daily dapagliflozin propanediol (FARXIGA) 10 mg, oral, Daily Eliquis 5 mg, oral, 2 times daily fluticasone propion-salmeteroL (Advair HFA) 115-21 mcg/actuation inhaler 2 puffs, 2 times daily magnesium oxide 500 mg magnesium tablet 1 tablet, Daily metFORMIN (Glucophage) 500 mg tablet Every 12 hours metoprolol succinate XL (TOPROL-XL) 25 mg, oral, Daily before breakfast mirabegron (MYRBETRIQ) 50 mg, Daily nitroglycerin (NITROSTAT) 0.4 mg, Every 5 min PRN potassium chloride CR 10 mEq ER tablet 10 mEq, oral, Daily, Do not crush, chew, or split. spironolactone (ALDACTONE) 25 mg, oral, Daily valsartan (DIOVAN) 40 mg, oral, Daily vit C/E/Zn/coppr/lutein/zeaxan (PRESERVISION AREDS-2 ORAL) Take by mouth. Assessment/Plan 1. Two-vessel coronary artery disease Follow Up In Cardiology Follow Up In Cardiology aspirin 81 mg EC tablet 2. Permanent atrial fibrillation (Multi) 3. Mixed hyperlipidemia 4. Ischemic cardiomyopathy 5. 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 BMI 40.0-44.9, adult (Multi) 8. Shortness of breath 9. Lower extremity edema 10. Never smoked tobacco 11. Traumatic hematoma of left upper arm, sequela Scribe Attestation By signing my name below, Diana Zapata LPN, Scribelizabeth attest that this documentation has been prepared under the direction and in the presence of MD Suraj. Provider Attestation - Scribe documentation All medical record entries made by the Scribe were at my direction and personally dictated by me. Ihave reviewed the chart and agree that the record accurately reflects my personal performance of the history, physical exam, discussion and plan. [facility] Work Phone: Hospital course Narrative No data available for this section [facility] Hospital Discharge instructions No data available for this section [facility] Discharge instructions Additional Instructions DISCHARGE INSTRUCTIONS FOR [...] doctor or pharmacist, without first calling the auto radio mechanic who implanted the stent. If you require [...] weight lifting, stair steppers, etc. until the auto radio mechanic approves these activities. Check with the auto radio mechanic on your first follow-up visit. CALL YOUR DESTINATION IMAGINATION COORDINATOR: -If bleeding should occur from the catheter insertion site- apply pressure to the site then immediately call us. -Report any fever, redness, drainage, increased swelling, or firmness at the catheter insertion site. Some bruising or slight swelling may be present at the time of discharge. -Should arm or leg become cold, numb, white, or blue, contact the auto radio mechanic immediately. -IF you should experience episodes of [...] Cardiopulmonary Rehabilitation program is recommended. The attending auto radio mechanic or a nurse clinician should provide you with specific instructions regarding activity, diet, medications, and further follow up for you. Follow the medication instructions provided on your discharge. If the dosages and instructions on this sheet differ from the dosage and instructions on the bottle, follow the instructions on the bottle. [facility] is not responsible for incorrect prescription information provided by the patient during their visit. Do not stop your medications without consulting your health care provider. Please take the list with you to your next doctor's appointment.[facility] Work Phone: Instructions* Patient Instructions* Diana Haddad LPN - 04/08/2025 10:50 AM EDT Please bring all medicines, vitamins, and herbal supplements with you when you come to the office. Prescriptions will not be filled unless you are compliant with your follow up appointments or have a follow up appointment scheduled as per instruction of your physician. Refills should be requested at the time of your visit. BMI was above normal measurement. Current weight: 127 kg (281 lb) Weight change since last visit (-) denotes wt loss 2 lbs Weight loss needed to achieve BMI 25: 116.9 Lbs Weight loss needed to achieve BMI 30: 84.1 Lbs Provided instructions on dietary changes Provided instructions on exercise. Stop Clopidogrel Wait 3 weeks and start aspirin 81 mg 2 tablets daily Keep arm elevated. Sleep left side or back. Go to ER if arm or hand tingling develop Follow up 6 months * Attachments The following attachments cannot be sent through Care Everywhere. * Preventing Falls ED (Malawian) * Diet and health (Malawian) documented in this [facility] Work Phone: Progress note No data available for this section [facility] reason for referral (narrative)* Consultation (Routine) - AuthorizedSpecialtyDiagnoses / ProceduresReferred By ContactReferred To ContactCardiology Diagnoses Shortness of breath Procedures Follow Up In Cardiology Pham Cotter APRN-PAINT MIXER HAND [address] [facility] [address], [address] [address] Referral IDStatusReasonStart DateExpiration DateVisits RequestedVisits [id number]/2/20247/ * Cardiac Stress Testing (Routine) - Pending ReviewSpecialtyDiagnoses / ProceduresReferred By ContactReferred To ContactRadiology Diagnoses Shortness of breath Procedures Nuclear Stress Test CHG MYOCARDIAL SPECT MULTIPLE STUDIES Pham Cotter APRN-PAINT MIXER HAND [address] [facility] [address], [address] [address] Referral IDStatusReasonStart DateExpiration DateVisits RequestedVisits [id number] Review/ [facility] Work Phone: reason for referral (narrative)* Consultation (Routine) - AuthorizedSpecialtyDiagnoses / ProceduresReferred By Contact Referred To ContactCardiology Diagnoses 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 ([facility]) Procedures Follow Up In Cardiology Bradley Antonio MD [address] [place] [address] 2, [facility] [address] [place] [address] Bradley Antonio MD [address] [facility] 2, [facility] [address] [place] [address] Referral IDStatusReasonStart DateExpiration DateVisits RequestedVisits [id number]/17/20249/ [facility] Work Phone: reason for visit Narrative* Consultation (Routine) - ClosedSpecialtyDiagnoses / ProceduresReferred By ContactReferred To Contact Psychology Diagnoses Memory impairment Procedures NM OFFICE/OUTPATIENT [facility] 60 MINUTES Avi Padgett DO [address] [place] [address] Jose Moulton, PhD [address] [address] Referral IDStatusReasonStart DateExpiration DateVisits RequestedVisits [id number] Specialty Services Required / [facility] Summary Purpose Family History No Family History Records FoundUnknown Family Member Name Dates Details Family history of congestive heart failure: Mother(V17.49, Z82.49) Status:ActiveFamily history of diabetes mellitus: Mother(V18.0, Z83.3) Status:ActiveFamily history of hypertension: Mother(V17.49, Z82.49) Status:ActiveFamily history of malignant neoplasm of stomach: Father(V16.0, Z80.0) Status:Active Unknown Family Member Name Dates Details Family history of congestive heart failure: Mother(V17.49, Z82.49) Status:ActiveFamily history of diabetes mellitus: Mother(V18.0, Z83.3) Status:ActiveFamily history of hypertension: Mother(V17.49, Z82.49) Status:ActiveFamily history of malignant neoplasm of stomach: Father(V16.0, Z80.0) Status:Active Unknown Family Member Name Dates Details Family history of congestive heart failure: Mother(V17.49, Z82.49) Status:ActiveFamily history of diabetes mellitus: Mother(V18.0, Z83.3) Status:ActiveFamily history of hypertension: Mother(V17.49, Z82.49) Status:ActiveFamily history of malignant neoplasm of stomach: Father(V16.0, Z80.0) Status:Active Unknown Family Member Name Dates Details Family history of congestive heart failure: Mother(V17.49, Z82.49) Status:ActiveFamily history of diabetes mellitus: Mother(V18.0, Z83.3) Status:ActiveFamily history of hypertension: Mother(V17.49, Z82.49) Status:ActiveFamily history of malignant neoplasm of stomach: Father(V16.0, Z80.0) Status:Active Unknown Family Member Name Dates Details Family history of malignant neoplasm of stomach: Father(V16.0, Z80.0) Status:ActiveFamily history of hypertension: Mother(V17.49, Z82.49) Status:ActiveFamily history of diabetes mellitus: Mother(V18.0, Z83.3) Status:ActiveFamily history of congestive heart failure: Mother(V17.49, Z82.49) Status:Active Unknown Family Member Name Dates Details Family history of congestive heart failure: Mother(V17.49, Z82.49) Status:ActiveFamily history of diabetes mellitus: Mother(V18.0, Z83.3) Status:ActiveFamily history of hypertension: Mother(V17.49, Z82.49) Status:ActiveFamily history of malignant neoplasm of stomach: Father(V16.0, Z80.0) Status:Active Unknown Family Member Name Dates Details Family history of congestive heart failure: Mother(V17.49, Z82.49) Status:ActiveFamily history of diabetes mellitus: Mother(V18.0, Z83.3) Status:ActiveFamily history of hypertension: Mother(V17.49, Z82.49) Status:ActiveFamily history of malignant neoplasm of stomach: Father(V16.0, Z80.0) Status:Active Unknown Family Member Name Dates Details Family history of congestive heart failure: Mother(V17.49, Z82.49) Status:ActiveFamily history of diabetes mellitus: Mother(V18.0, Z83.3) Status:ActiveFamily history of hypertension: Mother(V17.49, Z82.49) Status:ActiveFamily history of malignant neoplasm of stomach: Father(V16.0, Z80.0) Status:Active Unknown Family Member Name Dates Details Family history of congestive heart failure: Mother(V17.49, Z82.49) Status:ActiveFamily history of diabetes mellitus: Mother(V18.0, Z83.3) Status:ActiveFamily history of hypertension: Mother(V17.49, Z82.49) Status:ActiveFamily history of malignant neoplasm of stomach: Father(V16.0, Z80.0) Status:Active Advance Directives No Advanced Directives Records Found Advance Directive Response Recorded Date/ Time Advance Directives No January 29 024 2:49pm TypeDate RecordedPatient RepresentativeExplanationPower of Attorney10/03/2023 10:08 AMPower of AttorneyTypeDate RecordedPatient RepresentativeExplanationPower of Attorney10/03/2023 10:08 AMPower of Customer Services Manager Chief Complaint HUANG ROBLES is being seen for an annual follow-up of.HUANG ROBLES is being seen for an annual follow-up of.HUANG ROBLES is being seen for an annual follow-up of. Chief Complaint and Reason for Visit Chief Complaint shorness of breathe, aschvd Chief Complaint shorness of breathe, aschvd R41.3 Reason for Referral SpecialtyDiagnoses / ProceduresReferred By ContactReferred To Contact Diagnoses Memory impairment Procedures MR brain w and wo contrast routine Avi Padgett DO [address] [place] [address] [facility] Scheduling [address] [place] [address] Referral IDStatusReasonStart DateExpiration DateVisits RequestedVisits [id number] Review/[id number] / ProceduresReferred By ContactReferred To ContactPsychology Diagnoses Memory impairment Procedures NM OFFICE/OUTPATIENT [facility] 60 MINUTES Avi Padgett DO [address] [place] [address] Jose Moulton, PhD [address] [address] Referral IDStatusReasonStdamon DateExpiration DateVisits RequestedVisits [id number] Review Specialty Services Required / Additional Source Comments (unrecognized sect ion and [...] and content) DATE CREATED AUTHOR 12/12/2017 [facility] DATE CREATED AUTHOR AUTHOR'S YOGI TELLEZ 11/29/2018 [facility] DATE CREATED AUTHOR AUTHOR'S ORGANIZ ATION 09/04/2019 [facility] DATE CREATED AUTHOR AUTHOR'S ORGANIZ ATION 12/27/2022 [facility] DATE CREATED AUTHOR AUTHOR'S ORGANIZ ATION 12/28/2022 [facility] DATE CREATED AUTHOR AUTHOR'S ORGANIZ ATION 12/23/2023 [facility] DATE CREATED AUTHOR AUTHOR'S ORGANIZ ATION 01/17/2024 [facility] DATE CREATED AUTHOR AUTHOR'S ORGANIZ ATION 03/12/2024 [facility] DATE CREATED AUTHOR AUTHOR'S ORGANIZ ATION 03/16/2024 [facility] DATE CREATED AUTHOR AUTHOR'S ORGANIZ ATION 03/17/2024 [facility] DATE CREATED AUTHOR AUTHOR'S ORGANIZ ATION 04/17/2024 [facility] DATE CREATED AUTHOR AUTHOR'S ORGANIZ ATION 06/23/2024 [facility] DATE CREATED AUTHOR AUTHOR'S ORGANIZ ATION 11/21/2024 [facility] DATE CREATED AUTHOR AUTHOR'S ORGANIZ ATION 01/09/2025 [facility] DATE CREATED AUTHOR AUTHOR'S ORGANIZ ATION 01/15/2025 [facility] DATE CREATED AUTHOR AUTHOR'S ORGANIZ ATION 03/29/2025 [facility] DATE CREATED AUTHOR AUTHOR'S ORGANIZ ATION 04/04/2025 [facility] DATE CREATED AUTHOR AUTHOR'S ORGANIZ ATION 04/10/2025 [facility] DATE CREATED AUTHOR AUTHOR'S ORGANIZ ATION 04/17/2025 [facility] Patient Care team informatio n (unrecognized section and content) Team MemberRelationshipSpecialtyStart DateEnd Date Jesse Gonzales PA-C [address] [place] [address] PCP - General06/24/99 Team Status: Active Member Role Status Dates NON STAFF Primary Care Provider Active Team Status: Inactive Member Role Status Dates Kyleigh Maciel DO Attending Provider Active S tart: February 04, 2024 End: February 04, 2024NON STAFFPrimary Care ProviderActiveStart: February 04, 2024 End: February 04, 2024Team MemberRelationshipSpecialtyStart DateEnd Date Avi Lopez MD [address] [place] [address] PCP - [facility] Medicine10/03/23 Avi Lopez MD [address] [place] [address] PCP - [facility]09/23/23Team MemberRelationshipSpecialtyStart DateEnd Date Avi Lopez MD [address] [place] [address] PCP - [facility]10/03/23 Avi Lopez MD [address] [facility] [address] [place] [address] PCP - [facility]09/23/23 Team Status: Active Member Role Status Dates Joseph Maurer MD Primary Care Provider Active Team Status: Inactive Member Role Status Dates Avi Padgett DO Attending Pro vider, Referring Provider Active Start: April 07, 2024 End: April 07, 2024Vani Marcus Care ProviderActiveStart: April 07, 2024 End: April 07, 2024Team MemberRelationshipSpecialtyStart DateEnd Date Avi Lopez MD [address] [place] [address] PCP - [facility]10/03/23 Avi Lopez MD [address] [place] [address] PCP - [facility]09/23/23Team MemberRelationshipSpecialtyStart DateEnd Date Avi Lopez MD [address] [place] [address] [facility]/03/23 Avi Lopez MD [address] [place] [address] PCP - [facility]09/23/23Team MemberRelationshipSpecialtyStart DateEnd Date Avi Lopez MD [address] [place] [address] PCP - [facility]10/03/23 Avi Lopez MD [address] [place] [address] PCP - [facility]09/23/23Team MemberRelationshipSpecialtyStart DateEnd Date Avi Lopez MD [address] [place] [address] PCP - [facility]10/03/23 Avi Lopez MD [address] [place] [address] PCP - [facility]09/23/23Team MemberRelationshipSpecialtyStart DateEnd Date Avi Lopez MD [address] [place] [address] PCP - GeneralFamily Medicine10/03/23 Avi Lopez MD [address] [place] [address] PCP - [facility]09/23/23Team MemberRelationshipSpecialtyStart DateEnd Date Avi Lopez MD [address] [place] [address] PCP - Generalmily Medicine10/03/23 Avi Lopez MD [address] [place] [address] PCP - [facility]09/23/2411Team MemberRelationshipSpecialtyStart DateEnd Date Avi Lopez MD [address] [place] [address] [facility]10/03/23 Avi Lopez MD [address] [place] [address] PCP - [facility]09/23/2411Team MemberRelationshipSpecialtyStart DateEnd Date Joseph Maurer MD [address] [facility] [place] [address] [facility] - [facility] Medicine12/24/23Team MemberRelationshipSpecialtyStart DateEnd Date Joseph Maurer MD [address] [facility] [place] [address] PCP - GeneralFamily Medicine12/24/23Team MemberRelationshipSpecialtyStart DateEnd Date Avi Lopez MD [address] [facility] [place] [address] PCP - GeneralFamily Medicine10/03/23 Avi Lopez MD [address] [facility] [address] [place] [address] PCP - [facility]09/23/23Team MemberRelationshipSpecialtyStart DateEnd Date Avi Lopez MD [address] [facility] [address] [place] [address] PCP - GeneralFamily Medicine10/03/23Team MemberRelationshipSpecialtyStart DateEnd Date Avi Lopez MD [address] [facility] [place] [address] PCP - GeneralFamily Medicine10/03/23Team MemberRelationshipSpecialtyStart DateEnd Date Joseph Maurer MD [address] [facility] [place] [address] PCP - GeneralFamily Medicine12/24/23Team MemberRelationshipSpecialtyStart DateEnd Date Avi Lopez MD [address] [facility] [address] [place] [address] PCP - GeneralFamily Medicine10/03/23Team MemberRelationshipSpecialtyStart DateEnd Date Avi Lopez MD [address] [place] [address] [facility] - [facility]10/03/23Team MemberRelationshipSpecialtyStart DateEnd Date Ina Pierre, MACHINE SAND MIXER-PAINT MIXER HAND [address] [place] [address] PCP - Hrmhoae95/16/25 Reason for Visit (unrecogniz ed section and content) ReasonCommentsFollow-upNumb feet-better in compression stockingsEdema in ankles ReasonCommentsDM Foot CareDm nail careReasonCommentsMemory LossReasonComments [id number] / ProceduresReferred By ContactReferred To ContactCardiology Diagnoses 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 ([facility]) Procedures Follow Up In Cardiology Pham Cotter, MACHINE SAND MIXER-PAINT MIXER HAND [address] [facility] [address], [place] [place] [address] Referral IDStatusReasonEuless DateExpiration DateVisits RequestedVisits [id number]/31/20247/[id number] Foot CareDM nail careReasonCommentsFollow-up6 month Follow up for Atrial FibrillationSpecialty Diagnoses / ProceduresReferred By ContactReferred To ContactCardiology Diagnoses 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 Procedures Follow Up In Cardiology Bradley Antonio MD [address] [facility] [address], [address] [address] Phone: tel: fax: Bradley Antonio MD [address] [facility] [address], [address] [place] [address] Phone: tel: fax: Referral IDStatusReasonStart DateExpiration DateVisits RequestedVisits [id number]/17/20249/[id number] Foot CareReason CommentsFollow-up6 month follow up for Two-vessel coronary artery disease SpecialtyDiagnoses / ProceduresReferred By ContactReferred To ContactCardiology Diagnoses Two-vessel coronary artery disease Procedures Follow Up In Cardiology Bradley Antonio MD [address] [facility], [place] [address] Phone: tel: fax: Bradley Antonio MD [address] [facility], [place] [address] Phone: tel: fax: Referral IDStatusReasonStart DateExpiration DateVisits RequestedVisits [id number]/1/20254/ FOR RECORDS PERTAINING TO PATIENTS WHO ARE [...] BE BASED ON THE PRIMARY CLINICAL RECORDS. [facility]. provides no warranty or guarantee of the accuracy or completeness of information in this document.
--- NOTE | 2025-04-27 12:03 | CT_ITS ---
The [address] [address] Patient Name: HUANG QUINTANA MRN: [id number] date: 1955 Sex: M Assigned Patient Location: ER Current Patient Location: Accession/Order Number: [id number] Exam Date: 04/27/2025 12:40 Report Date: 04/27/2025 13:36 At the request of: KATINA CORDOVA DO Procedure: CT forearm LT w con CT forearm LT w con 04/27/2025 12:50 PM SIGNS AND SYMPTOMS: extensive hematoma for weeks, fluctuance, infection TECHNIQUE: Multidetector CT axial slices of the left forearm with IV contrast. Multiplanar reformats were performed and viewed on a separate workstation and reviewed to further define anatomy and possible pathology. CT was performed with one or more of the following dose reduction techniques: Automated exposure control, adjustment of the mA and/or kV according to patient size, or use of iterative reconstruction technique. Contrast: 100 mL of intravenous Omnipaque 300 COMPARISON: Radiographs from the same date FINDINGS: The radiocarpal joint and carpal rows are preserved. There is no evidence of fracture or dislocation. The carpal metacarpal junctions are preserved. No osteolytic or bony destructive process. Degenerative changes are noted in the elbow is greatest along the ulnar joint space. There is a mildly hyperattenuating but heterogeneous collection in the subcutaneous soft tissues along the dorsal aspect of the left forearm measuring 6.3 x 2.4 x 11.4 cm in greatest dimension. This is confined to the subcutaneous fat. There is adjacent fat stranding. This most likely represents a hematoma. Superimposed infectious process is not excluded. CT/CT forearm LT w con IMPRESSION: There is a mildly hyperattenuating but heterogeneous collection in the subcutaneous soft tissues along the dorsal aspect of the left forearm measuring 6.3 x 2.4 x 11.4 cm in greatest dimension. This is confined to the subcutaneous fat. There is adjacent fat stranding. This most likely represents a hematoma. Superimposed infectious process is not excluded. Impression dictated by: Chad Winter M.D. 04/27/2025 1:36 PM Dictation Location: [place] [address] Electronically authenticated by: [id number] Date: 04/27/2025 13:36
[2025-04-27] MEDS: SILVER NITRATE APPLICATOR STICK 2 APPLIC TOPICAL (12:05)
--- NOTE | 2025-04-27 12:06 | ED.GENADUL1 ---
HPI HPI - General Adult General Chief complaint: Extremity Injury, Upper Stated complaint: BLEEDING WOUND L ARM Time Seen by Provider: 04/27/25 11:52 Source: patient Mode of arrival: Wheelchair Limitations: no limitations History of Present Illness HPI narrative: The patient is a 69-year-old gentleman who presents to the emergency department secondary to left forearm bleeding. The patient symptoms actually began on April 05. The patient was weed whacking outside when he fell and had a mechanical injury to his left forearm. The patient is on blood thinners, Eliquis 5 mg twice a day. The patient stated that he had a bruise and some pain present. He presented to the emergency department. The excerpt from that HPI reveals: Patient is a 69-year-old male with a PMH of A-fib on Eliquis, HTN, and diabetes that presents to the emergency department via EMS after mechanical fall onto his left forearm. He states he was weed whacking around his house when he tripped over the weeds and fell onto his left arm. He denies hitting his head. He is GCS 15 on arrival and complains of left forearm pain and swelling, and right hand abrasions and pain. He denies any chest pain, abdominal pain, leg pain or back pain. [facility] Related Data Home Medications ?Medication ?Instructions ?Recorded ?Confirmed albuterol sulfate 90 mcg/actuation 1 puff inhalation Q6H PRN 12/29/22 04/05/25 aerosol inhaler (Ventolin HFA) shortness of breath or wheezing apixaban 5 mg tablet (Eliquis) 5 mg PO BID 12/29/22 04/05/25 metformin 500 mg tablet,extended 500 mg PO BID 12/29/22 04/05/25 release 24 hr metoprolol tartrate 100 mg tablet 100 mg PO BID 12/29/22 04/05/25 tolterodine 4 mg capsule,extended 4 mg PO Q24H 12/29/22 04/05/25 release 24 hr torsemide 20 mg tablet 10 mg PO DAILY 12/29/22 04/05/25 mometasone-formoterol HFA 100 2 puff inhalation BID 01/12/24 04/05/25 mcg-5 mcg/actuation aerosol inhaler (Dulera) spironolactone 25 mg tablet 25 mg PO DAILY 01/12/24 04/05/25 Allergies Allergy/AdvReac Type Severity Reaction Status Date / Time No Known Drug Allergies Allergy Verified 04/05/25 16:31 Opioid HPI Opioid Management Most Recent Opioid Data: Last Pain Scale 8 04/05/25, 17:11 Review of Systems ROS Narrative 10 Systems were reviewed, and unless noted in the HPI, all other systems are reviewed, unremarkable, or noncontributory. [facility] Medical History (Updated 04/27/25 @ 14:39 by Celeste Toth DO) HTN (hypertension) ?I10 - Essential (primary) hypertension (ICD-10) Diabetes ?E11.9 - Type 2 diabetes mellitus without complications (ICD-10) Afib ?I48.91 - Unspecified atrial fibrillation (ICD-10) Social History Little interest or pleasure in doing things: not at all Feeling down, depressed, or hopeless: not at all Exam Constitutional Vital Signs, click to edit/add: Last Vital Signs Temp 97.8 F 04/27/25 11:28 Pulse 86 04/27/25 13:30 Resp 20 04/27/25 13:30 BP 158/91 H 04/27/25 13:30 Pulse Ox 98 04/27/25 13:30 O2 Del Method Room Air 04/27/25 11:28 Course Consultations Consultation #1: I had an opportunity to speak to Dr. Walker, general surgeon. I do not believe the patient is septic. I do not believe he is toxic or in distress. The patient has been dealing with this since April 05. As opposed to transferring the patient which I think is a little excessive for his condition, the office was able to get him in tomorrow morning at 10 AM. All of the information was conveyed to the office by myself. And the patient can be seen tomorrow. Time: 14:35 Vital Signs Vital signs: Vital Signs Temperature 97.8 F 04/27/25 11:28 Pulse Rate 75 04/27/25 11:28 Respiratory Rate 16 04/27/25 11:28 Blood Pressure 145/96 H 04/27/25 11:28 Pulse Oximetry 97 04/27/25 11:28 Oxygen Delivery Method Room Air 04/27/25 11:28 Temperature 97.8 F 04/27/25 11:28 Pulse Rate 86 04/27/25 13:30 Respiratory Rate 20 04/27/25 13:30 Blood Pressure 158/91 H 04/27/25 13:30 Pulse Oximetry 98 04/27/25 13:30 Oxygen Delivery Method Room Air 04/27/25 11:28 Medical Decision Making Lab Data Labs: Lab Results 04/27/25 Range/Units 12:12 WBC 5.1 (4.0-11.0) 10^3/uL RBC 3.73 L (4.70-6.10) 10^6/uL Hgb 11.9 L (14.0-18.0) g/dL Hct 36.2 L (42.0-54.0) % MCV 97.1 H (80.0-94.0) fL MCH 31.9 (25.9-34.0) pg MCHC 32.9 (29.9-35.2) g/dL RDW 13.6 (11.0-15.0) % Plt Count 235 (150-450) 10^3/uL MPV 9.5 (9.5-13.5) fL Neut % (Auto) 70.5 (43.0-75.0) % Lymph % (Auto) 19.1 L (20.5-60.0) % [place] % (Auto) 8.0 (1.7-12.0) % Eos % (Auto) 1.4 (0.9-7.0) % Baso % (Auto) 0.6 (0.2-2.0) % Neut # (Auto) 3.6 (1.4-6.5) 10^3/uL Lymph # (Auto) 1.0 L (1.2-3.8) 10^3/uL Jess[place] # (Auto) 0.4 (0.3-0.8) 10^3/uL Eos # (Auto) 0.1 (0.0-0.7) 10^3/uL Baso # (Auto) 0.0 (0.0-0.1) 10^3/uL Abs Immat Gran (auto) 0.02 (0.00-0.03) 10^3/uL Imm/Tot Granulo (auto) 0.4 (0.0-0.5) % PT 12.9 H (9.0-11.6) sec INR 1.24 Sodium 141 (136-145) mmol/L Potassium 4.0 (3.5-5.1) mmol/L Chloride 104 (98-107) mmol/L Carbon Dioxide 24.7 (21.0-32.0) mmol/L Anion Gap 16.3 BUN 10.0 (7.0-18.0) mg/dL Creatinine 0.82 (0.70-1.30) mg/dL Est GFR ( Amer) >60 (>=60 mL/min/1.73m^2) Est GFR (Non-Af Amer) >60 (>=60 mL/min/1.73m^2) BUN/Creatinine Ratio 12.2 Glucose 118 H (74-106) mg/dL Calcium 8.7 (8.5-10.1) mg/dL Discharge Plan Discharge Chief Complaint: Extremity Injury, Upper Clinical Impression: Hematoma of left upper extremity Patient Disposition: Home, Self-Care Time of Disposition Decision: 14:36 Mode of Transportation: Private Vehicle Prescriptions / Home Meds: No Action torsemide 20 mg tablet 10 mg PO DAILY metoprolol tartrate 100 mg tablet 100 mg PO BID tolterodine 4 mg capsule,extended release 24hr 4 mg PO Q24H albuterol sulfate [Ventolin HFA] 90 mcg/actuation HFA aerosol inhaler 1 puff INHALATION Q6H PRN (Reason: shortness of breath or wheezing) metformin 500 mg tablet extended release 24 hr 500 mg PO BID Eliquis 5 mg tablet 5 mg PO BID Dulera 100-5 mcg/actuation HFA aerosol inhaler 2 puff INHALATION BID spironolactone 25 mg tablet 25 mg PO DAILY Print Language: Danish Instructions: Hematoma (ED) Additional Instructions: Thank you for trusting me with your care. Please follow-up with Dr. Mccullough tomorrow. Referrals: BAL MCCULLOUGH [Physician, General Surgery] - 04/28/25 9:30 am Referral Note: Please call them today to cancel this appointment if you are unable to keep it. Clinical Impression: Hematoma of left upper extremity Procedures ED Procedure Instructions Procedures Procedures: Silver Nitrate sticks used 12:02
[2025-04-27 12:19] LABS: Hematocrit 36.2 % (42.0-54.0); Hemoglobin 11.9 g/dL (14.0-18.0); Immature Granulocytes Abs Auto 0.02 10^3/uL (0.00-0.03); Immature Granulocytes Pct Auto 0.4 % (0.0-0.5); Lymphocytes Absolute Auto 1.0 10^3/uL (1.2-3.8); Mean Corpuscular HGB Conc 32.9 g/dL (29.9-35.2); Mean Corpuscular Hemoglobin 31.9 pg (25.9-34.0); Mean Corpuscular Volume 97.1 fL (80.0-94.0); Platelet Count 235 10^3/uL (150-450); Red Blood Count 3.73 10^6/uL (4.70-6.10); White Blood Count 5.1 10^3/uL (4.0-11.0)
[2025-04-27 12:28] LABS: Anion Gap 16.3; Blood Urea Nitrogen 10.0 mg/dL (7.0-18.0); Calcium 8.7 mg/dL (8.5-10.1); Carbon Dioxide 24.7 mmol/L (21.0-32.0); Chloride 104 mmol/L (98-107); Estimated GFR (African America >60 (>=60 mL/min/1.73m^2); Estimated GFR (Non-African Ame >60 (>=60 mL/min/1.73m^2); Glucose 118 mg/dL (74-106); Potassium 4.0 mmol/L (3.5-5.1); Sodium 141 mmol/L (136-145)
[2025-04-27 12:31] LABS: INR 1.24; Prothrombin Time 12.9 sec (9.0-11.6)
[2025-04-27 13:30] VITALS: BP 158/91; PULSE 86; O2SAT 98
== END 2025-04-27 15:00 | disposition home or self-care (01) ==
PROVIDERS: Emergency Provider Emergency Medicine; PCP Nurse Practitioner
DX: S60.212A Contusion of left wrist, initial encounter (principal); W18.39XA Other fall on same level, initial encounter; Y93.H9 Activity, other involving exterior property and land maintenance, building and construction; Z79.01 Long term (current) use of 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s; I48.91 Unspecified atrial fibrillation; I10 Essential (primary) hypertension; E11.9 Type 2 diabetes mellitus without complications; Z79.84 Long term (current) use of oral hypoglycemic drugs
CPT/HCPCS: 36415; 73201; 76376; 80048; 85025; 85610; 99285